=== PATIENT | female | born 1965 | race Caucasian/White ===

== ENCOUNTER 2016-09-12 12:44 | Inpatient (IN) | payer OTHER ==
[2016-09-12] MEDS ORDERED: MAGNESIUM SULF 50% (8.12 MEQ/2 ML-1 GM VIAL) ONE (12:51)
[2016-09-12] MEDS ORDERED: methylPREDNISolone NA SUCC 125 MG/2 ML VIAL ONE (12:51)
[2016-09-12] MEDS ORDERED: EPINEPHrine/PF 1 MG/1 ML (1:1,000) AMPULE ONE (12:51)
[2016-09-12] MEDS ORDERED: ALBUTEROL SO4 2.5/IPRATROPIUM 0.5 INH SOL 3 ML VIAL.NEB. NEB ONE ×3 (12:56→18:48)
[2016-09-12 13:00] VITALS: BMI 21.7
[2016-09-12] MEDS ORDERED: MAGNESIUM SULF 50% (8.12 MEQ/2 ML-1 GM VIAL) IVPB ONE (13:02)
[2016-09-12] MEDS ORDERED: methylPREDNISolone NA SUCC 40 MG/1 ML VIAL IVPB ONE (13:02)
[2016-09-12] MEDS ORDERED: ACETAMINOPHEN 1000 MG/100 ML VIAL (NON FORMULARY) IVPB ONE (13:08)
[2016-09-12] MEDS ORDERED: SODIUM CHLORIDE 1,000 ML IV STA (13:08)
[2016-09-12] MEDS ORDERED: ACETAMINOPHEN INJECTION 100 ML IVPB ONE (13:15)
[2016-09-12] MEDS ORDERED: LEVOFLOXACIN 500 MG IVPB 100 ML IVPB ONE ×2 (13:52→14:16)
[2016-09-12 13:54] LABS: BASOPHIL 0.2 % (0-2.0); EOSINOPHIL 2.3 % (0-4.5); MCH 24.8 pg (25.7-33.7); MCHC 30.3 g/dl (32.0-36.0); MEAN PLT VOLUME 8.1 fl (7.5-11.1); PLATELET COUNT 329 K/MM3 (134-434); RDW 19.2 % (11.6-15.6); WHITE BLOOD COUNT 15.2 K/mm3 (4.0-10.0)
[2016-09-12] MEDS ORDERED: NALOXONE HCL 0.4 MG/ML VIAL IVPUSH ONE (13:54)
[2016-09-12 13:56] LABS: ALBUMIN 3.4 g/dl (3.4-5.0); CALCIUM 9.2 mg/dL (8.5-10.1)
[2016-09-12 13:57] LABS: INR 1.19 (0.82-1.09); PROTHROMBIN TIME (PATIENT) 13.1 SEC (9.98-11.88)
[2016-09-12 14:01] LABS: BILIRUBIN,TOTAL 0.2 mg/dL (0.2-1.0); CREATININE 1.3 mg/dL (0.55-1.02); TOT PROT 7.9 g/dl (6.4-8.2)
[2016-09-12] MEDS ORDERED: VANCOMYCIN 1,000 MG in DEXTROSE 5%-WATER - 250 ML IVPB ONE (14:21)
[2016-09-12 14:22] LABS: URINE APPEARANCE CLEAR; URINE BILIRUBIN NEGATIVE (NEGATIVE); URINE BLOOD NEGATIVE (NEGATIVE); URINE COLOR YELLOW; URINE GLUCOSE (UA) NEGATIVE (NEGATIVE); URINE KETONE NEGATIVE (NEGATIVE); URINE LEUK ESTERASE NEGATIVE (NEGATIVE); URINE NITRITE NEGATIVE (NEGATIVE); URINE UROBILINOGEN NEGATIVE E.U./dl (0.2-1.0)
[2016-09-12] MEDS ORDERED: VANCOMYCIN 1 GRAM (PRE-DOCKED) 250 ML IVPB ONE (14:26)
[2016-09-12] MEDS ORDERED: IMIPENEM/CILASTATIN SODIUM 500 MG in SODIUM CHLORIDE 100 ML IV ONE (14:27)
[2016-09-12 14:46] LABS: URINE PROTEIN 2+ (NEGATIVE)
--- NOTE | 2016-09-12 14:51 | PDOC ---
History of Present Illness <Kassi Goodson - Last Filed: 09/12/16 14:59> - General History Source: Patient, EMS, Old Records Exam Limitations: Clinical Condition - History of Present Illness Initial Comments: 09/12/16 12:45 51-year-old female with history of crest syndrome, advanced COPD, history of heavy smoking brought in by EMS for difficulty breathing over the past several days, increased lethargy and a productive cough. Patient is unable to cooperate with detailed H&P due to her clinical condition but does report taking OxyContin for chronic back pain shortly prior to arrival. REVIEW OF SYSTEMS Unable to obtain due to patient's clinical condition EXAMINATION CONSTITUTIONAL: On arrival, patient is obtunded, arousable to sternal rub, follows simple commands. Patient is cachectic, tachypneic and dyspneic. 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 SKIN: Warm, dry, + telangioactasias to lower extremities NEURO: Obtunded but arousable, follows commands, moving all extremities symmetrically; <Lex Garcia - Last Filed: 09/12/16 17:46> - General Chief Complaint: Respiratory Distress Stated Complaint: DIFFICULTY BREATHING Time Seen by Provider: 09/12/16 13:00 Past History <Kassi Goodson - Last Filed: 09/12/16 14:59> - Past Medical History Anemia: Yes Asthma: Yes Cancer: No Cardiac Disorders: Yes (bundle tier and labeler 2015, no stents) CVA: No COPD: Yes CHF: No Dementia: No Diabetes: No GI Disorders: Yes (REFLUX) Disorders: No HTN: No Hypercholesterolemia: Yes Liver Disease: No Seizures: No Thyroid Disease: Yes (HYPO.) - Surgical History Abdominal Surgery: Yes Appendectomy: Yes Cardiac Surgery: No Cholecystectomy: No Lung Surgery: No Neurologic Surgery: Yes (LS/RODS &BONE FUSIONS) Orthopedic Surgery: Yes (multiple back sx, hand sx,b/o hip) - Immunization History Immunization Up to Date: Yes - Psycho/Social/Smoking Cessation Hx Anxiety: Yes Suicidal Ideation: No Smoking Status: No Smoking History: Former smoker Have you smoked in the past 12 months: Yes Number of Cigarettes Smoked Daily: 10 If you are a former smoker, when did you quit?: 2016 - 4 months ago Information on smoking cessation initiated: Yes 'Breaking Loose' booklet given: 09/12/16 Hx Alcohol Use: No Drug/Substance Use Hx: No Substance Use Type: None Hx Substance Use Treatment: No <Lex Garcia - Last Filed: 09/12/16 17:46> - Past Medical History Allergies/Adverse Reactions: Allergies Allergy/AdvReac Type Severity Reaction Status Date / Time Penicillins Allergy Severe Hives Verified 09/12/16 12:56 Home Medications: Ambulatory Orders Duloxetine HCl [Cymbalta -] 60 mg PO DAILY #30 capsule. 03/10/15 Albuterol 0.083% Nebulizer Cinthya [Ventolin 0.083% Nebulizer Soln -] 1 amp NEB Q4H PRN #1 amp 04/11/16 Aspirin [ASA -] 81 mg PO DAILY tab.chew 04/11/16 Budesonide/Formeterol Fumarate [SYMBICORT 80/4.5mcg -] 2 puff IH BID #1 inhaler 04/11/16 Tiotropium [place] [Spiriva] 1 puff IH DAILY #1 inh 04/27/16 Docusate Sodium [Colace -] 100 mg PO TID PRN 05/27/16 Polyethylene Glycol 3350 [Miralax 119 gm Btl -] 17 gm PO DAILY PRN 05/27/16 Ranitidine [Zantac -] 150 mg PO DAILY 05/27/16 Gabapentin [Neurontin -] 800 mg PO TID capsule 05/28/16 Mupirocin Ointment [Bactroban 2% Ointment -] 1 applic TP BID applic 05/28/16 Aclidinium [place] [Tudorza -] 1 puff IH DAILY inhaler 07/20/16 Lactobacillus Acidophilus [Bacid -] 1 each PO DAILY #30 capsule 07/20/16 Metoclopramide HCl [Reglan -] 10 mg PO ACHS tablet 07/20/16 Acetaminophen [Tylenol .Regular Strength -] 650 mg PO Q6H PRN #0 tablet Hydroxychloroquine So4 [Plaquenil -] 200 mg PO BID tablet 07/31/16 Pantoprazole Sodium [Protonix -] 40 mg PO BID tablet.ec 07/31/16 Prednisone 10 mg PO AM #20 tablet 08/27/16 *Physical Exam - Vital Signs Last Vital Signs Temp Pulse Resp BP Pulse Ox 101.7 F H 104 H 20 89/56 100 09/12/16 12:55 09/12/16 13:15 09/12/16 13:15 09/12/16 13:15 09/12/16 13:15 <Kassi Goodson - Last Filed: 09/12/16 14:59> - Vital Signs Last Vital Signs Temp Pulse Resp BP Pulse Ox 103 H 32 H 103/92 100 09/12/16 13:06 09/12/16 12:57 09/12/16 12:57 09/12/16 13:06 <Lex Garcia - Last Filed: 09/12/16 17:46> Heart Score/ECG Review - ECG Intrepretation Comment:: 09/12/16 14:51 97, normal sinus rhythm with sinus arrhythmia, axis-within normal limit, no ST- T abnormalities, prolonged QTC, abnormal EKG. <Lex Garcia - Last Filed: 09/12/16 17:46> ED Treatment Course - LABORATORY CBC & Chemistry Diagram: 09/12/16 13:15 09/12/16 13:15 - ADDITIONAL ORDERS Additional order review: Laboratory Results 09/12/16 09/12/16 09/12/16 13:50 13:15 13:15 Sodium 133 L Potassium 4.4 Chloride 104 Carbon Dioxide 19 L D Anion Gap 10 BUN 37 H D Creatinine 1.3 H D Creat Clearance w eGFR 43.01 Random Glucose 127 H Lactic Acid 0.690 Calcium 9.2 Total Bilirubin 0.2 AST 95 H D ALT 54 D Alkaline Phosphatase 58 D Total Protein 7.9 D Albumin 3.4 D Urine Color Yellow Urine Appearance Clear Urine pH 5.0 Ur Specific [place] 1.023 Urine Protein 2+ H Urine Glucose (UA) Negative Urine Ketones Negative Urine Blood Negative Urine Nitrite Negative Urine Bilirubin Negative Urine Urobilinogen Negative Ur Leukocyte Esterase Negative 09/12/16 13:15 RBC 4.27 MCV 82.0 MCHC 30.3 L RDW 19.2 H MPV 8.1 D Neutrophils % 88.0 H Lymphocytes % 4.9 L D Monocytes % 4.6 Eosinophils % 2.3 D Basophils % 0.2 - Medications Given in the ED: ED Medications Discontinued Medications Generic Name Dose Route Start Last Admin Trade Name Shalom PRN Reason Stop Dose Admin Acetaminophen 1,000 mg 09/12/16 13:08 09/12/16 13:31 Ofirmev Injection - IVPB 09/12/16 13:09 1,000 mg ONCE ONE Administration Albuterol/Ipratropium 5 amp 09/12/16 13:16 09/12/16 13:32 Duoneb - NEB 09/12/16 13:17 5 amp ONCE ONE Administration Sodium Chloride 1,000 mls @ 1,000 mls/hr 09/12/16 13:08 09/12/16 13:31 Normal Saline - IV 09/12/16 14:07 1,000 mls/hr ASDIR STA Administration Levofloxacin 100 mls @ 100 mls/hr 09/12/16 13:52 09/12/16 14:25 Levaquin 500 Mg Premixed Ivpb - IVPB 09/12/16 14:51 100 mls/hr ONCE ONE Administration Magnesium Sulfate 2 gm 09/12/16 13:02 09/12/16 13:00 Magnesium Sulfate IVPB 09/12/16 13:03 2 gm ONCE ONE Administration Methylprednisolone Sodium Succinate 60 mg 09/12/16 13:02 09/12/16 13:12 Solu-Medrol - IVPB 09/12/16 13:03 60 mg ONCE ONE Administration Naloxone HCl 0.4 mg 09/12/16 13:54 09/12/16 14:25 Narcan - IVPUSH 09/12/16 13:55 0.4 mg ONCE ONE Administration <Kassi Goodson - Last Filed: 09/12/16 14:59> - LABORATORY CBC & Chemistry Diagram: 09/12/16 13:15 09/12/16 13:15 - ADDITIONAL ORDERS Additional order review: Laboratory Results 09/12/16 09/12/16 13:15 13:15 Sodium 133 L Potassium 4.4 Chloride 104 Carbon Dioxide 19 L D Anion Gap 10 BUN 37 H D Creatinine 1.3 H D Creat Clearance w eGFR 43.01 Random Glucose 127 H Lactic Acid 0.690 Calcium 9.2 Total Bilirubin 0.2 AST 95 H D ALT 54 D Alkaline Phosphatase 58 D Total Protein 7.9 D Albumin 3.4 D 09/12/16 13:15 RBC 4.27 MCV 82.0 MCHC 30.3 L RDW 19.2 H MPV 8.1 D Neutrophils % 88.0 H Lymphocytes % 4.9 L D Monocytes % 4.6 Eosinophils % 2.3 D Basophils % 0.2 - RADIOLOGY Radiology Studies Ordered: Category Date Time Status CHEST X-RAY PORTABLE* [RAD] Stat Radiology 09/12/16 13:00 Completed - Medications Given in the ED: ED Medications Discontinued Medications Generic Name Dose Route Start Last Admin Trade Name Freq PRN Reason Stop Dose Admin Acetaminophen 1,000 mg 09/12/16 13:08 09/12/16 13:31 Ofirmev Injection - IVPB 09/12/16 13:09 1,000 mg ONCE ONE Administration Albuterol/Ipratropium 5 amp 09/12/16 13:16 09/12/16 13:32 Duoneb - NEB 09/12/16 13:17 5 amp ONCE ONE Administration Sodium Chloride 1,000 mls @ 1,000 mls/hr 09/12/16 13:08 09/12/16 13:31 Normal Saline - IV 09/12/16 14:07 1,000 mls/hr ASDIR STA Administration Magnesium Sulfate 2 gm 09/12/16 13:02 09/12/16 13:00 Magnesium Sulfate IVPB 09/12/16 13:03 2 gm ONCE ONE Administration Methylprednisolone Sodium Succinate 60 mg 09/12/16 13:02 09/12/16 13:12 Solu-Medrol - IVPB 09/12/16 13:03 60 mg ONCE ONE Administration Naloxone HCl 0.4 mg 09/12/16 13:54 09/12/16 14:25 Narcan - IVPUSH 09/12/16 13:55 0.4 mg ONCE ONE Administration <Lex Garcia - Last Filed: 09/12/16 17:46> Medical Decision Making - Medical Decision Making 09/12/16 14:[address] Yee from infectious disease. She is in agreement with plan of care. <Kassi Goodson - Last Filed: 09/12/16 14:59> - Critical Care Time Total Critical Care Time (minutes): 75 Critical Care Statement: The care of this patient involved high complexity decision making to prevent further life threatening deterioration of the patient 's condition and/or to evalute & treat vital organ system(s) failure or risk of failure. - Medical Decision Making 09/12/16 12:57 Patient is an ill-appearing 51-year-old female with history of crest syndrome, pulmonary fibrosis, heavy smoking who presents with altered mental status, fever and difficulty breathing. On initial evaluation, patient noted to be obtunded, dyspneic and tachypneic and febrile. Patient was immediately placed on BiPAP for respiratory support and end-tidal CO2 was obtained-noted to be 32. Oxygen saturation on FiO2 of 50% is Between 89 and 94%. Differential diagnoses includes acute COPD exacerbation versus pneumonia versus CHF exacerbation. We'll obtain CBC/CMP/cardiac profile/chest x-ray/EKG/UA/urine culture. We'll administer continuous nebulizer therapy, we'll administer Solu- Medrol and magnesium sulfate IV. Will continue BiPAP. We'll consider IM epinephrine if respiratory status worsens. 09/12/16 13:34 Patient remains obtunded and is refusing to maintain the BiPAP mask on. I will administer Narcan to reverse possible effects of opioid pain medication. Will encourage resumption of BiPAP. CBC shows leukocytosis with predominance of neutrophils. CMP reveals elevated BUN and creatinine. Chest x-ray reveals increased interstitial markings. Will continue with Combivent therapy. Will administer broad-spectrum antibiotic coverage for hospital-acquired pneumonia. Will screen for the ICU. 09/12/16 13:[address] Youngblood of critical care. He agrees with the plan of care. Patient will be admitted to the ICU. After administration of 0.4 mg of Narcan, patient became alert, awake and responsive. Sputum culture will be obtained. Patient has also received a bolus of normal saline of 1000 mL with improvement and blood pressure from 93/52 to 112/72. 09/12/16 15:3 patient seen and evaluated by Dr. Yee of infectious disease. She agrees with the plan of care. Patient remains hemodynamically stable at this time. End- tidal CO2 is noted to be 25. Oxygen saturation on FiO2 of 40% is noted to be 99% . Awaiting transfer to the ICU. <Lex Garcia - Last Filed: 09/12/16 17:46> *DC/Admit/Observation/Transfer - Attestations Scribe Attestion: 09/12/16 14:59 Documentation prepared by Kassi Goodson, acting as medical office worker for Lex Garcia MD. <Kassi Goodson - Last Filed: 09/12/16 14:59> - Discharge Dispostion Admit: Yes <Lex Garcia - Last Filed: 09/12/16 17:46> Diagnosis at time of Disposition: COPD exacerbation Pneumonia due to infectious organism Qualifiers: Laterality: bilateral Lung location: unspecified part of lung Qualified Code(s) : J18.9 - Pneumonia, unspecified organism
[2016-09-12 14:58] LABS: URINE RBC 9 /hpf (0-3); URINE WBC 1 /hpf (3-5)
[2016-09-12 14:59] LABS: URINE MARIJUANA THC NEGATIVE ng/ml (CUTOFF=50)
--- NOTE | 2016-09-12 15:21 | CONSULT ---
Consult Consult Specialty:: ICU Referred by:: ED Reason for Consultation:: lethargic/PNA/possible aspiration/possibleopiate overdose - History of Present Illness Chief Complaint: weakness/lethargy History of Present Illness: 51-year-old female with history of crest syndrome, advanced COPD, history of heavy smoking brought in by EMS for difficulty breathing over the past several days, increased lethargy and a productive cough. She has a history of opioid dependence and multiple aspiration pneumonias. upon arrival to the ED patient was given narcan and she woke up. Patient was still lethargic but able to answer some questions during the interview process. She states this happens to her whenever she gets a PNA. she states she has been having purulent sputum with cough. She states she has been having fevers and chills. patient does not remember losing consciousness. She denies all other symptoms she has no other complaints. She takes ocycontin 80mg TID and MS contin 30mg BID. Denies overusing states takes only as prescribed. - History Source History Provided By: Patient, Medical Record Limitations to Obtaining History: Intoxication - Past Medical History PENSION CONSULTANT: Yes: Peripheral Neuropathy Cardio/Vascular: Yes: Other (Raynaud's w/ multiple upper extremity digit amputations. 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), GERD (with long segment Bonner's esophagus and patent Schatzki ring), Peptic Ulcer Disease (antral ulcer ), Other (Bonner's esophagus, GERD, Schatzki ring, perforation of small bowel diverticulum, antral ulcer, scleroderma causing esophageal dysmotility and gastroparesis) Renal/: Yes: Renal Failure Infectious Disease: Yes: MRSA (bursitis) Psych: Yes: Addictions (marijuana,tobacco and prescription narcotics) Musculoskeletal: Yes: Chronic low back pain, Other (has spinal stimulator) Rheumatology: Yes: Vasculitis, Other (Scleroderma, Raynauds and CREST syndrome) Endocrine: Yes: Hypothyroidism, Other (Malnutrition, osteoporosis) Dermatology: Yes: Cellulitis - Past Surgical History Past Surgical History: Yes: Appendectomy, Colonoscopy, Upper Endoscopy - Alcohol/Substance Use Hx Alcohol Use: No History of Substance Use: reports: Marijuana (quit 1 month ago), Prescription - Smoking History Smoking history: Former smoker Have you smoked in the past 12 months: Yes Aproximately how many cigarettes per day: 10 If you are a former smoker, when did you quit?: 2016 - 4 months ago - Social History Usual Living Arrangement: With Parent ADL: Independent Occupation: disabled History of Recent Travel: No Home Medications - Allergies Allergies/Adverse Reactions: Allergies Allergy/AdvReac Type Severity Reaction Status Date / Time Penicillins Allergy Severe Hives Verified 09/12/16 12:56 - Home Medications Home Medications: Ambulatory Orders Duloxetine HCl [Cymbalta -] 60 mg PO DAILY #30 capsule. 03/10/15 Lactobacillus Acidophilus [Bacid -] 1 each PO DAILY #30 capsule 01/03/16 Albuterol 0.083% Nebulizer Cinthya [Ventolin 0.083% Nebulizer Soln -] 1 amp NEB Q4H PRN #1 amp 04/11/16 Aspirin [ASA -] 81 mg PO DAILY tab.chew 04/11/16 Budesonide/Formeterol Fumarate [SYMBICORT 80/4.5mcg -] 2 puff IH BID #1 inhaler 04/11/16 Tiotropium [place] [Spiriva] 1 puff IH DAILY #1 inh 04/27/16 Docusate Sodium [Colace -] 100 mg PO TID PRN 05/27/16 Polyethylene Glycol 3350 [Miralax 119 gm Btl -] 17 gm PO DAILY PRN 05/27/16 Ranitidine [Zantac -] 150 mg PO DAILY 05/27/16 Gabapentin [Neurontin -] 800 mg PO TID capsule 05/28/16 Mupirocin Ointment [Bactroban 2% Ointment -] 1 applic TP BID applic 05/28/16 Aclidinium [place] [Tudorza -] 1 puff IH DAILY inhaler 07/20/16 Lactobacillus Acidophilus [Bacid -] 1 each PO DAILY #30 capsule 07/20/16 Metoclopramide HCl [Reglan -] 10 mg PO ACHS tablet 07/20/16 Morphine *Sr* [Ms Contin -] 15 mg PO BID@0800,2000 #0 tablet.sa MDD 2 07/20/16 Oxycodone Sr [Oxycontin] 40 mg PO TID tab.er.12h MDD 3 tab 07/20/16 Acetaminophen [Tylenol .Regular Strength -] 650 mg PO Q6H PRN #0 tablet Hydroxychloroquine So4 [Plaquenil -] 200 mg PO BID tablet 07/31/16 Pantoprazole Sodium [Protonix -] 40 mg PO BID tablet.ec 07/31/16 Prednisone 10 mg PO AM #20 tablet 08/27/16 Sulfamethoxazole/Trimethoprim [Bactrim Ds -] 1 tab PO BID #14 tablet 08/27/16 Family Disease History - Family Disease History Family Disease History: Diabetes: Father (HCV), Heart Disease: Father, Mother, Other: Father, Brother (HIV) Review of Systems - Review of Systems Constitutional: reports: Chills, Fever Eyes: reports: No Symptoms HENT: reports: No Symptoms Neck: reports: No Symptoms Cardiovascular: reports: No Symptoms Respiratory: reports: SOB on Exertion Gastrointestinal: reports: No Symptoms, Dysphagia Genitourinary: reports: No Symptoms Musculoskeletal: reports: Joint Pain, Joint Swelling, Muscle Pain Physical Exam Vital Signs: Vital Signs Temperature 101.7 F H 09/12/16 12:55 Pulse Rate 90 09/12/16 14:00 Respiratory Rate 20 09/12/16 14:00 Blood Pressure 126/78 09/12/16 14:00 O2 Sat by Pulse Oximetry (%) 100 09/12/16 14:00 Constitutional: Yes: Cachectic, Poor Hygeine, Thin, Other (tired appearing lethargic poor oral hygiene) HENT: Yes: Atraumatic Neck: Yes: Trachea Midline Cardiovascular: Yes: Regular Rate and Rhythm Respiratory: Yes: Rales, Rhonchi Gastrointestinal: Yes: Normal Bowel Sounds, Soft Extremities: Yes: Other (cool cyanotic fingers multiple amputated fingers) Neurological: Yes: Lethargy Labs: CBC, BMP 09/12/16 13:15 09/12/16 13:15 Imaging - Results Chest X-ray: Report Reviewed, Image Reviewed Assessment/Plan 51-year-old female with history of crest syndrome, advanced COPD, history of heavy smoking brought in by EMS for difficulty breathing over the past several days, increased lethargy and a productive cough. Likely Acute on Chronic Hypercapneic Respiratory Failure Likely Recurrent Aspiration Pneumonia Opiate Dependent - ?Overdose Altered Mental Status Acute COPD Exacerbation Acute Kidney Injury Scleroderma/CREST Syndrome COPD:Acute on chronic hypercapneic respiratory failure Admit to ICU Hold home meds BiPAP Duonebs standing albuterol PRN solumedrol 40mg IV Q8h x48hrs Get VBG Sepsis secondary to recurrent aspiration PNA meets SIRS criteria with likely pulmonary source given purulent sputum. patient also has esophageal dysmotility Elevated WBC count HR >90 and febrile with suspected pulmonary source UA negative Got vanco imipenem and levaquin in ED ID consult appreciated continue vanco imipenem repeat CBC IVF PRASHANT: likely secondary to prerenal cause given sepsis IVF recheck Cr avoid nephrotoxic drugs renally dose all meds Opioid dependence Possible overdose Hold opiates Narcan PRN patient needs counselling prior to discharge Scleroderma/CREST outpt follow up PPx: HSQ SCDs No GI PPx indicated OOB TC FEN: NS @ 50ml/hr Hyponatremia NPO for now CCT 60min
--- NOTE | 2016-09-12 15:25 | PN ---
Teaching Attending Note Name of Resident: Dash Rojas ATTENDING PHYSICIAN STATEMENT I saw and evaluated the patient. I reviewed the resident's note and discussed the case with the resident. I agree with the resident's findings and plan as documented. SUBJECTIVE: Pt seen and examined in the ER. Briefly, 51yo female with h/o COPD, scleroderma/ CREST syndrome, hypothyroidism, hyperlipidemia, recurrent pneumonia attributed to aspiration, opiate dependency who presents with altered mental status and shortness of breath. Pt lethargic, unable to provide reliable history at this time but does report subjective fevers this AM and a purulent cough. No sick contacts or recent travel. Noted to be obtunded in the ER with some improvement in mental status. She is maintained at home on oxycontin 80mg TID and MS contin 30mg BID. She states she does not take extra doses. OBJECTIVE: Last Vital Signs Temp Pulse Resp BP Pulse Ox 101.7 F H 90 20 126/78 100 09/12/16 12:55 09/12/16 14:00 09/12/16 14:00 09/12/16 14:00 09/12/16 14:00 Intake & Output 09/09/16 09/10/16 09/11/16 09/12/16 23:59 23:59 23:59 23:59 Intake Total 1000 Output Total 400 Balance 600 Weight 115 lb Gen: lethargic on BiPAP HEENT: poor dentition Heart: RRR Lung: distant breath sounds, scattered rhonchi Abd: soft, nontender Ext: no edema, amputated fingers CBC, BMP 09/12/16 13:15 09/12/16 13:15 CXR: bilateral interstitial changes ASSESSMENT AND PLAN: Likely Acute on Chronic Hypercapneic Respiratory Failure Likely Recurrent Aspiration Pneumonia Opiate Dependent - ?Overdose Altered Mental Status Acute COPD Exacerbation Acute Kidney Injury Scleroderma/CREST Syndrome - IV antibiotics to cover aspiration and health care acquired organisms - f/u cultures - IV medrol 40mg q8h x 48 hrs and then reassess need - inhaled bronchodilators standing and PRN - BiPAP to assist in work of breathing and hypercapnea - obtain pH - hold narcotics - aspiration precautions - IVF - monitor urine output, creatinine - NPO until mental status improves - DVT prophylaxis - ICU monitoring for now Thank you for this consult Hai Youngblood MD
--- NOTE | 2016-09-12 15:37 | PN ---
Progress Note (short form) - Note Progress Note: ID consult dictated imlp/reccd- this is the 14th hospital admission for 2016 for this 51 year old female with scleroderma/crest/raynaud's disease, on oxycontin/mscontin for pain management history of GERD, histroy of recurrent pneumonia admitted from home with a history of several days of fever and cough, +vomiting +constipation sister reports intermittent lethargy at home as well she was obtunded in the ED and her mental status improved with bipap and narcan recent admission 08/24 to 08/27 for pneumonia treated with rocephin/zith and d/ rahul on bactrim 08/27 for 7 days, also steroid taper now off fever in ED given vancomycin/levaquin and imipenem history of ecoli ESBL in the sputum +purulent sputum +influenza vaccine respiratory failure pneumonia [place] n[place] scleroderma/crest pen allergy ?aspiration f/u cultures legionella urinary antigen influenza screen vancomycin/imipenem pending cultures contact isolation resistant organisms icu monitoring
[2016-09-12] MEDS ORDERED: ALBUTEROL SO4 0.083% IH SOL 2.5 MG/3 ML VIAL.NEB. NEB PRN ×2 (15:57→16:28)
[2016-09-12] MEDS ORDERED: ACETAMINOPHEN 325 MG TABLET (FP) PO PRN (16:28)
[2016-09-12] MEDS ORDERED: DOCUSATE SODIUM 100 MG CAPSULE (FP) PO PRN (16:28)
[2016-09-12] MEDS ORDERED: POLYETHYLENE GLYCOL 3350 119 GM BTL PO PRN (16:28)
[2016-09-12] MEDS ORDERED: SODIUM CHLORIDE 1,000 ML IV SCH (16:30)
[2016-09-12] MEDS: METOCLOPRAMIDE HCL 10 MG TABLET (FP) PO SCH (16:50)
[2016-09-12] MEDS: LIDOCAINE 5% TOPICAL PATCH TP SCH (16:51)
--- NOTE | 2016-09-12 17:28 | CONS ---
INFECTIOUS DISEASE CONSULTATION DATE OF CONSULTATION: 09/12/2016 Patient was seen in the emergency room. This is the 4th hospital admission in 2016 for this 51-year-old woman with: 1. Scleroderma (CREST syndrome) 2. Raynaud's disease 3. On OxyContin/MS Contin for pain management 4. History of GERD 5. History of recurrent pneumonia, was admitted from home with a history of several days of fever and cough. 6. She has also had intermittent vomiting and constipation. There has been no history of any travel or sick contacts. Patient reports intermittent lethargy at home as well. Yesterday, apparently all day she was very, very lethargic. She was quite alert last night and again today became extremely lethargic. She has had intermittent fever at home. She was recently in the hospital from the to the for pneumonia, treated with Rocephin and Zithromax, discharged on Bactrim on the for 7 days, also was discharged on a steroid taper, which she is now off. She was quite lethargic in the emergency room when she was evaluated by the emergency room physician. She was placed on BiPAP, and she was given a dose of Narcan with improvement. I am asked to see her for further antibiotic management. PAST MEDICAL HISTORY: Her past medical history is notable for: 1. Chronic interstitial lung disease 2. History of scleroderma (CREST syndrome) 3. Raynaud's 4. COPD 5. Anemia 6. Asthma 7. GERD 8. Hypothyroidism 9. She has ESBL. 10. Compensation of her sputum and urine in the past. 11. She has a history of recurrent pneumonia. She has a history as well of: 12. Bonner's esophagus 13 Schatzki's ring 14. Gastroparesis 15. Peptic ulcer disease 16. MRSA bursitis of her elbow 17. Chronic low back pain. She has had a cardiac catheterization in the past and was found to have normal coronaries. SURGICAL HISTORY: 1. Appendectomy 2. She has had multiple upper extremity finger partial amputations on both her hands. SOCIAL HISTORY: There is no history of any alcohol use. She recently stopped smoking marijuana. She is a former smoker. She quit several months ago as well. She lives at home with her family. She is not working. ALLERGIES: She is allergic to PENICILLAIN but tolerates cephalosporins. MEDICATIONS AT HOME: 1. Cymbalta 2. Bacid 3. Nebulizer 4. Aspirin 5. Symbicort 6. Spiriva 7. Colace 8. MiraLAX 9. Zantac 10. Neurontin 11. Mupirocin ointment 12. Tudorza 13. Reglan 14 MS Hussein. She apparently takes 30 twice a day 15. She takes OxyContin 80 three times a day. 16. On the , she finished Bactrim. 17. She finished a recent prednisone taper. 18. She also takes Plaquenil 200 mg b.i.d. 19. Protonix 40 b.i.d. FAMILY HISTORY: Family history is notable for diabetes, heart disease, and she has a brother who has HIV. REVIEW OF SYSTEMS: Reports constipation, intermittent vomiting and intermittent fevers with cough productive of purulent sputum. Her fever is 101.7. She is quite alert now, no BiPAP. She is able to speak with me. PHYSICAL EXAM: Vital signs: Her pulse is 90. Blood pressure is 126/78. Respiratory rate is 20. She is batting a 100% on BiPAP 50%. HEENT EXAM: She is normocephalic. Her neck is supple. I cannot examine her mouth as she is on BiPAP. Lungs: Her lungs have distant heart sounds. She has some scattered rhonchi. There are no wheezes. Abdomen: Her abdomen is firm. It is nontender. It is slightly distended. Her extremities are without edema, and she has multiple amputated fingers. Labs are notable for a white count of 15.2, hemoglobin 10.6, platelets of 329, BUN and creatinine of 37 and 1.3. Chest x-ray showing bilateral interstitial changes that appear worse than on her last admission. SUMMARY: In summary, this is a 51-year-old woman with respiratory failure, probable aspiration pneumonia, opiate-dependant, scleroderma (CREST syndrome) on Plaquenil and Raynaud's. History of ESBL organisms in the past. She received vancomycin, Levaquin and imipenem in the emergency room. RECOMMENDATIONS: Suggest continuing vancomycin and imipenem, adjusted for her renal insufficiency. Sputum culture and blood cultures have been ordered. Will obtain an influenza antigen. She did get the flu shot, but for completeness as well as pneumococcal and legionella urinary antigen. Further recommendations to follow based on her clinical course. TLAON EWING M.D. /[id number]
[2016-09-12] MEDS ORDERED: methylPREDNISolone NA SUCC 40 MG/1 ML VIAL ONE (18:44)
[2016-09-12] MEDS: ALBUTEROL SO4 2.5/IPRATROPIUM 0.5 INH SOL 3 ML VIAL.NEB. NEB SCH (18:51)
[2016-09-12] MEDS: methylPREDNISolone NA SUCC 40 MG/1 ML VIAL IVPB SCH (18:52)
--- NOTE | 2016-09-12 21:08 | HP ---
Admitting History and Physical - Primary Care Physician PCP: Eva Gonzalez S - Admission Chief Complaint: cough lethargy History of Present Illness: Pt seen and examined in the ER. 51yo female with h/o COPD, scleroderma/CREST syndrome, hypothyroidism, hyperlipidemia, recurrent pneumonia attributed to aspiration, opiate dependency who presents with altered mental status and shortness of breath. Pt and her girlfriend Maki at bedside report fevers this AM and a purulent cough. Pt started to cough yesterday at home but said she had some nausea and vomiting at home 3-4 days ago and thinks she had a stomach virus. No sick contacts or recent travel. Noted to be obtunded in the ER with some improvement in mental status. She is maintained at home on oxycontin 80mg TID and MS contin 30mg BID. She states she does not take extra doses. Her mental status improved with narcan in ER. Maki reported pt had some difficulty in talking at home earlier and is wondering if she had a "small CVA". I d/w pt and Maki that as advised many times in the past would cut down to taper to off er opiates; pt was supposed to see neurology and pain mngt outpt to be switched to alternative treatment (from opiates) but did not go yet; strongly advised to do so. I d/w pt and Maki again risks and possible consequences of opiate tx (like respiratory depression, constipation, falls, tolerance, dependence, etc); they are aware and are working on tapering them to off and DC them. 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 Normal coronaries on cardiac cath and EF 65% with mild AI, trace MR and TR on echo @ [facility] [place] 03/31) Pulmonary: Yes: Asthma, COPD, Pneumonia, Other (lung mass of undetermined etiology) Gastrointestinal: Yes: Constipation, Diverticulitis, Diverticulosis (small bowel diverticular perforation, scleroderma affecting the esophagus, Bonner's esophagus, Schatzki ring,GAVE syndrome, antral ulcer, gastroparesis related to scleroderma), GERD (with long segment Bonner's esophagus and patent Schatzki ring), Peptic Ulcer Disease (antral ulcer ), Other (Bonner's esophagus, GERD, Schatzki ring, perforation of small bowel diverticulum, antral ulcer, scleroderma causing esophageal dysmotility and gastroparesis) Renal/: Yes: Renal Failure Heme/Onc: Yes: Anemia Infectious Disease: Yes: MRSA (bursitis) Psych: Yes: Addictions (marijuana,tobacco and prescription narcotics) Musculoskeletal: Yes: Chronic low back pain, Other (has spinal stimulator) Rheumatology: Yes: Vasculitis, Other (Scleroderma, Raynauds and CREST syndrome) Endocrine: Yes: Hypothyroidism, Other (Malnutrition, osteoporosis) Dermatology: Yes: Cellulitis - Past Surgical History Past Surgical History: Yes: Appendectomy, Colonoscopy, Upper Endoscopy - Smoking History Smoking history: Former smoker Have you smoked in the past 12 months: Yes Aproximately how many cigarettes per day: 10 If you are a former smoker, when did you quit?: 2016 - 4 months ago - Alcohol/Substance Use Hx Alcohol Use: No History of Substance Use: reports: Marijuana (quit 1 month ago), Prescription - Social History Usual Living Arrangement: Yes: With Parent ADL: Independent Occupation: disabled History of Recent Travel: No Home Medications - Allergies Allergies/Adverse Reactions: Allergies Allergy/AdvReac Type Severity Reaction Status Date / Time Penicillins Allergy Severe Hives Verified 09/12/16 12:56 - Home Medications Home Medications: Ambulatory Orders Duloxetine HCl [Cymbalta -] 60 mg PO DAILY #30 capsule. 03/10/15 Albuterol 0.083% Nebulizer Cinthya [Ventolin 0.083% Nebulizer Soln -] 1 amp NEB Q4H PRN #1 amp 04/11/16 Aspirin [ASA -] 81 mg PO DAILY tab.chew 04/11/16 Budesonide/Formeterol Fumarate [SYMBICORT 80/4.5mcg -] 2 puff IH BID #1 inhaler 04/11/16 Tiotropium [place] [Spiriva] 1 puff IH DAILY #1 inh 04/27/16 Docusate Sodium [Colace -] 100 mg PO TID PRN 05/27/16 Polyethylene Glycol 3350 [Miralax 119 gm Btl -] 17 gm PO DAILY PRN 05/27/16 Ranitidine [Zantac -] 150 mg PO DAILY 05/27/16 Gabapentin [Neurontin -] 800 mg PO TID capsule 05/28/16 Mupirocin Ointment [Bactroban 2% Ointment -] 1 applic TP BID applic 05/28/16 Aclidinium [place] [Tudorza -] 1 puff IH DAILY inhaler 07/20/16 Lactobacillus Acidophilus [Bacid -] 1 each PO DAILY #30 capsule 07/20/16 Metoclopramide HCl [Reglan -] 10 mg PO ACHS tablet 07/20/16 Acetaminophen [Tylenol .Regular Strength -] 650 mg PO Q6H PRN #0 tablet Hydroxychloroquine So4 [Plaquenil -] 200 mg PO BID tablet 07/31/16 Pantoprazole Sodium [Protonix -] 40 mg PO BID tablet.ec 07/31/16 Prednisone 10 mg PO AM #20 tablet 08/27/16 Family Disease History - Family Disease History Family Disease History: Diabetes: Father (HCV), Heart Disease: Father, Mother, Other: Father, Brother (HIV) Review of Systems - Review of Systems Constitutional: reports: Fever, Lethargy. denies: Chills Eyes: denies: Blind Spots, Double Vision HENT: denies: Difficult Swallowing, Ear Pain Neck: denies: Pain on Movement, Stiffness, Swollen Glands, Tenderness Cardiovascular: denies: Chest Pain, Shortness of Breath Respiratory: reports: Cough. denies: Hemoptysis, SOB, Wheezing Gastrointestinal: reports: Bloating, Constipation, Vomiting. denies: Abdominal Pain, Diarrhea Genitourinary: denies: Burning, Dysuria, Flank Pain Musculoskeletal: reports: Back Pain (chronic) Neurological: reports: Change in Speech, Unsteady Gait. denies: Change in LOC, Confusion Hematology/Lymphatic: denies: Easily Bruised, Excessive Bleeding Physical Examination Vital Signs: Vital Signs Temperature 97.8 F 09/12/16 16:42 Pulse Rate 87 09/12/16 18:16 Respiratory Rate 14 09/12/16 18:16 Blood Pressure 97/68 09/12/16 18:16 O2 Sat by Pulse Oximetry (%) 98 09/12/16 19:49 Constitutional: Yes: Moderate Distress Eyes: Yes: Conjunctiva Clear HENT: Yes: Atraumatic Neck: Yes: Supple Cardiovascular: Yes: Regular Rate and Rhythm Respiratory: Yes: Rales, Rhonchi (bilateral I/E) Gastrointestinal: Yes: Soft, Distention. No: Tenderness Renal/: No: CVA Tenderness - Left, CVA Tenderness - Right Musculoskeletal: No: Joint Stiffness, Joint Swelling Extremities: No: Cold, Cool Edema: No Peripheral Pulses WNL: Yes Integumentary: No: Pressure Ulcer, Rash, Venous Stasis Changes Neurological: Yes: WNL, Alert, Oriented ...Motor Strength: WNL Psychiatric: Yes: WNL, Alert, Oriented. No: Agitated Imaging - Results Chest X-ray: Report Reviewed Other: Report Reviewed Assessment/Plan 51yo female with h/o COPD, scleroderma/CREST syndrome, hypothyroidism, hyperlipidemia, recurrent pneumonia attributed to aspiration, opiate dependency who presents with altered mental status and shortness of breath. Pt lethargic at arrival but woke up with narcan admit to ICU BIPAP pulmonary and ID eval iv steroids; iv antibiotics; neuro and pain mnt; taper opiates to off DVT gastric falls and aspiration PFX prognosis guarded d/w pt and staff, d/w Maki; also to address advanced directives, HCP T time 75 min
[2016-09-12] MEDS ORDERED: MUPIROCIN 2% TOPICAL OINTMENT 22 GM TUBE TP SCH (22:00)
[2016-09-12] MEDS ORDERED: HEPARIN NA (PORCINE) 5,000 UNITS/ML 1ML VIAL SQ SCH (22:00)
[2016-09-12] MEDS ORDERED: CHLORHEXIDINE GLUCONATE 4% CLEANSER FOR DECOLONIZATION TP SCH (22:00)
[2016-09-13] MEDS: GABAPENTIN 400 MG CAPSULE (FP) PO SCH ×4 (00:11→21:22)
[2016-09-13] MEDS: MUPIROCIN 2% TOPICAL OINTMENT FOR DECOLONIZATION NS SCH ×3 (00:12→21:23)
[2016-09-13] MEDS: PANTOPRAZOLE 40 MG TABLET (FP) PO SCH ×3 (00:12→21:22)
[2016-09-13] MEDS: HEPARIN NA (PORCINE) 5,000 UNITS/ML 1ML VIAL SQ SCH ×3 (00:12→21:22)
[2016-09-13] MEDS: METOCLOPRAMIDE HCL 10 MG TABLET (FP) PO SCH ×5 (00:30→21:23)
[2016-09-13] MEDS: BUDESONIDE/FORMETEROL FUMARATE 80/4.5 mcg INHALER IH SCH ×3 (00:31→21:24)
[2016-09-13] MEDS: HYDROXYCHLOROQUINE SO4 200 MG TABLET (FP) PO SCH ×3 (00:31→21:23)
[2016-09-13] MEDS: IMIPENEM/CILASTATIN SODIUM 500 MG in SODIUM CHLORIDE 100 ML IVPB SCH ×3 (01:50→18:04)
[2016-09-13] MEDS: methylPREDNISolone NA SUCC 40 MG/1 ML VIAL IVPB SCH ×3 (01:50→18:04)
[2016-09-13] MEDS: ALBUTEROL SO4 2.5/IPRATROPIUM 0.5 INH SOL 3 ML VIAL.NEB. NEB SCH ×4 (02:19→23:04)
[2016-09-13 06:06] LABS: ARTERIAL BLD GAS O2 SATURATION 92.4 % (90-98.9); ARTERIAL BLOOD GAS BASE EXCESS -6.2 meq/l (-2-2); ARTERIAL BLOOD GAS HCO3 19.8 meq/L (22-26); ARTERIAL BLOOD GAS PO2 73.8 mmHg (80-100)
[2016-09-13 06:07] LABS: ALLENS TEST POSITIVE; ART PUNCT SITE RIGHT RADIAL; LPM/O2% 40%; PT. ON O2? YES; TYPE OF O2 BI-PAP
[2016-09-13 06:08] LABS: ARTERIAL BLOOD GAS pH 7.27 (7.35-7.45); VENT RATE 14; VT/PRESS 14/7
[2016-09-13 06:29] LABS: MCH 24.9 pg (25.7-33.7); MCHC 30.9 g/dl (32.0-36.0); MEAN CELL VOLUME 80.6 fl (80-96); MEAN PLT VOLUME 7.7 fl (7.5-11.1); PLATELET COUNT 311 K/MM3 (134-434); RDW 19.3 % (11.6-15.6); WHITE BLOOD COUNT 11.6 K/mm3 (4.0-10.0)
[2016-09-13 06:43] LABS: INR 1.33 (0.82-1.09); PROTHROMBIN TIME (PATIENT) 14.7 SEC (9.98-11.88)
[2016-09-13 06:46] LABS: ACTIVATED PTT 31.7 SECONDS (26.9-34.4)
[2016-09-13 06:50] LABS: ALBUMIN 2.4 g/dl (3.4-5.0); ALK PHOS 44 U/L (45-117); ANION GAP 8 (8-16); BILIRUBIN,TOTAL 0.2 mg/dL (0.2-1.0); CALCIUM 8.1 mg/dL (8.5-10.1); CO2 22 mmol/L (21-32); CREATININE 0.7 mg/dL (0.55-1.02); GLUCOSE,RANDOM 123 mg/dL (74-106); MAGNESIUM 1.9 mg/dL (1.8-2.4); PHOSPHOROUS 2.8 mg/dL (2.5-4.9); SGOT/AST 47 U/L (15-37); SGPT/ALT 37 U/L (12-78); TOT PROT 5.9 g/dl (6.4-8.2)
--- NOTE | 2016-09-13 07:28 | PN ---
Progress Note, Physician Chief Complaint: ID Patient well known to me from repeated admissions for fever and recurrent respiratory tract infections Again here with fever and respiratory failure monitered in the ICU and currently on BIPAP Given Vancomycin and Imipenem - Current Medication List Current Medications: Active Medications Acetaminophen (Tylenol -) 650 mg PO Q6H PRN PRN Reason: FEVER OR PAIN Aclidinium [place] (Tudorza -) [address] [facility] Albuterol Sulfate (Ventolin 0.083% Nebulizer Soln -) 1 amp NEB Q4H PRN PRN Reason: SHORT OF BREATH/WHEEZING Albuterol/Ipratropium (Duoneb -) [address] [facility] Last Admin: 09/13/16 06:50 Dose: 1 amp Aspirin (Asa -) [address] [facility] Budesonide/Formoterol Fumarate (Symbicort 80/4.5mcg -) [address] [facility] Last Admin: 09/13/16 00:31 Dose: 2 puff Chlorhexidine Gluconate (Hibiclens For Decolonization -) [address] [facility] Last Admin: 09/13/16 00:12 Dose: Not Given Docusate Sodium (Colace -) 100 mg PO TID PRN PRN Reason: CONSTIPATION Duloxetine HCl (Cymbalta -) [address] [facility] Gabapentin (Neurontin -) [address] [facility] Last Admin: 09/13/16 06:30 Dose: 800 mg Heparin Sodium (Porcine) (Heparin -) 5,[address] [facility] Last Admin: 09/13/16 00:12 Dose: 5,000 unit Hydroxychloroquine Sulfate (Plaquenil -) [address] [facility] Last Admin: 09/13/16 00:31 Dose: 200 mg Imipenem/Cilastatin Sodium 500 (mg/ Sodium Chloride) 100 mls @ 100 mls/hr IVPB Q8H-IV [facility] Last Admin: 09/13/16 01:50 Dose: 100 mls/hr Sodium Chloride (Normal Saline -) 1,000 mls @ 50 mls/hr IV ASDIR [facility] Stop: 09/13/16 16:18 Last Admin: 09/12/16 18:20 Dose: 50 mls/hr Lactobacillus Acidophilus (Bacid -) [address] [facility] Lidocaine (Lidoderm Patch -) [address] [facility] Last Admin: 09/12/16 16:51 Dose: Not Given Methylprednisolone Sodium Succinate (Solu-Medrol -) 40 mg IVPB Q8H-IV [facility] Last Admin: 09/13/16 01:50 Dose: 40 mg Metoclopramide HCl (Reglan -) [address] [facility] Last Admin: 09/13/16 06:30 Dose: 10 mg Mupirocin (Bactroban Ointment (For Decolonization) -) [address] [facility] Stop: 09/17/16 21:59 Last Admin: 09/13/16 00:12 Dose: 1 applic Pantoprazole Sodium (Protonix -) [address] [facility] Last Admin: 09/13/16 00:12 Dose: 40 mg Polyethylene Glycol (Miralax (For Daily Use) -) 17 gm PO DAILY PRN PRN Reason: CONSTIPATION Ranitidine HCl (Zantac -) [address] [facility] Vancomycin HCl (Vancomycin (Pre-Docked)) 1,[address] [facility] - Objective Vital Signs: Vital Signs Temperature 97.6 F 09/13/16 06:00 Pulse Rate 77 09/13/16 06:00 Respiratory Rate 18 09/13/16 06:00 Blood Pressure 98/74 09/13/16 06:00 O2 Sat by Pulse Oximetry (%) 99 09/13/16 00:00 Constitutional: Yes: Mild Distress Cardiovascular: Yes: S1, S2 Respiratory: Yes: Rhonchi Gastrointestinal: Yes: Soft Edema: No Labs: CBC, BMP 09/13/16 05:20 09/13/16 05:20 INR, PTT INR 1.33 (0.82-1.09) H 09/13/16 05:20 Assessment/Plan Microbiology 09/12/16 15:07 Nasopharyngeal Swab Influenza Types A,B Antigen (MEKHI) - Final 09/12/16 15:07 Nasopharyngeal Swab - Final Laboratory Tests 09/12/16 09/13/16 09/13/16 13:15 05:20 05:55 WBC 15.2 H D 11.6 H Hgb 9.0 L D Hct 29.2 L D Plt Count 311 ABG pH 7.27 L ABG pCO2 at Pt Temp 44.5 Oxygen Flow Rate 40% Assessment Known chronic interstitial lung disease with frequent superimposed respiratory tract infection ? Pneumonia Substance abuse history Smoker Scleroderma History of resistant organism E Coli ESBL recent Plan Continue current antibiotics pending final cultures Stable overnight on BIPAP Steroids on board Nicolasa CAVAZOS
[2016-09-13] MEDS ORDERED: ASPIRIN 81 MG CHEWABLE TABLETS PO SCH (10:00)
[2016-09-13] MEDS ORDERED: RANITIDINE HCL 150 MG TABLET (FP) PO SCH (10:00)
[2016-09-13] MEDS ORDERED: ACLIDINIUM BROMIDE 400 MCG/INH AERO.POWD IH SCH (10:00)
[2016-09-13] MEDS ORDERED: DULoxetine HCL 30 MG CAPSULE.DR (FP) PO SCH (10:00)
[2016-09-13] MEDS ORDERED: LACTOBACILLUS ACIDOPHILUS 1 EACH TAB (FP) PO SCH (10:00)
[2016-09-13] MEDS ORDERED: VANCOMYCIN 1 GRAM (PRE-DOCKED) 1,000 MG/250 ML BAG IVPB SCH (10:00)
[2016-09-13] MEDS: LIDOCAINE 5% TOPICAL PATCH TP SCH (10:59)
--- NOTE | 2016-09-13 12:45 | PN ---
Progress Note, Physician History of Present Illness: in ICU OOB to chair feels and looks better; no CP/SOB, less cough; afebrile\ consults meds and tests reviewed with pt d/w pt again to hold off all opiates, she agreed for now! - Current Medication List Current Medications: Active Medications Acetaminophen (Tylenol -) 650 mg PO Q6H PRN PRN Reason: FEVER OR PAIN Aclidinium [place] (Tudorza -) 1 puff IH DAILY [facility] Last Admin: 09/13/16 11:03 Dose: 1 puff Albuterol Sulfate (Ventolin 0.083% Nebulizer Soln -) 1 amp NEB Q4H PRN PRN Reason: SHORT OF BREATH/WHEEZING Albuterol/Ipratropium (Duoneb -) 1 amp NEB QIDR [facility] Last Admin: 09/13/16 12:18 Dose: 1 amp Aspirin (Asa -) 81 mg PO DAILY [facility] Last Admin: 09/13/16 10:58 Dose: 81 mg Budesonide/Formoterol Fumarate (Symbicort 80/4.5mcg -) 2 puff IH BID [facility] Last Admin: 09/13/16 11:03 Dose: 2 puff Chlorhexidine Gluconate (Hibiclens For Decolonization -) 1 applic TP HS [facility] Last Admin: 09/13/16 00:12 Dose: Not Given Docusate Sodium (Colace -) 100 mg PO TID PRN PRN Reason: CONSTIPATION Duloxetine HCl (Cymbalta -) 60 mg PO DAILY [facility] Last Admin: 09/13/16 10:59 Dose: 60 mg Gabapentin (Neurontin -) 800 mg PO TID [facility] Last Admin: 09/13/16 06:30 Dose: 800 mg Heparin Sodium (Porcine) (Heparin -) 5,000 unit SQ BID [facility] Last Admin: 09/13/16 10:59 Dose: 5,000 unit Hydroxychloroquine Sulfate (Plaquenil -) 200 mg PO BID [facility] Last Admin: 09/13/16 11:02 Dose: 200 mg Imipenem/Cilastatin Sodium 500 (mg/ Sodium Chloride) 100 mls @ 100 mls/hr IVPB Q8H-IV [facility] Last Admin: 09/13/16 11:02 Dose: 100 mls/hr Sodium Chloride (Normal Saline -) 1,000 mls @ 50 mls/hr IV ASDIR [facility] Stop: 09/13/16 16:18 Last Admin: 09/12/16 18:20 Dose: 50 mls/hr Lactobacillus Acidophilus (Bacid -) 1 tab PO DAILY [facility] Last Admin: 09/13/16 10:58 Dose: 1 tab Lidocaine (Lidoderm Patch -) 1 patch TP DAILY [facility] Last Admin: 09/13/16 10:59 Dose: 1 patch Methylprednisolone Sodium Succinate (Solu-Medrol -) 40 mg IVPB Q8H-IV [facility] Last Admin: 09/13/16 11:03 Dose: 40 mg Metoclopramide HCl (Reglan -) 10 mg PO ACHS [facility] Last Admin: 09/13/16 11:04 Dose: 10 mg Mupirocin (Bactroban Ointment (For Decolonization) -) 1 applic NS BID [facility] Stop: 09/17/16 21:59 Last Admin: 09/13/16 10:58 Dose: 1 applic Pantoprazole Sodium (Protonix -) 40 mg PO BID [facility] Last Admin: 09/13/16 11:02 Dose: 40 mg Polyethylene Glycol (Miralax (For Daily Use) -) 17 gm PO DAILY PRN PRN Reason: CONSTIPATION Ranitidine HCl (Zantac -) 150 mg PO DAILY [facility] Last Admin: 09/13/16 11:04 Dose: 150 mg Vancomycin HCl (Vancomycin (Pre-Docked)) 1,000 mg IVPB DAILY [facility] Last Admin: 09/13/16 11:03 Dose: 1,000 mg - Objective Vital Signs: Vital Signs Temperature 97.6 F 09/13/16 06:00 Pulse Rate 82 09/13/16 08:00 Respiratory Rate 16 09/13/16 08:00 Blood Pressure 95/55 09/13/16 08:00 O2 Sat by Pulse Oximetry (%) 98 09/13/16 09:56 Constitutional: Yes: No Distress, Calm Eyes: Yes: Conjunctiva Clear HENT: Yes: Atraumatic Neck: Yes: Supple Cardiovascular: Yes: Regular Rate and Rhythm Respiratory: Yes: Rales, Rhonchi Gastrointestinal: Yes: Soft. No: Distention, Tenderness Genitourinary: No: CVA Tenderness - Left, CVA Tenderness - Right Musculoskeletal: No: Joint Stiffness, Joint Swelling Extremities: No: Cold, Cool Edema: No Peripheral Pulses WNL: Yes Neurological: Yes: WNL, Alert, Oriented ...Motor Strength: WNL Psychiatric: Yes: WNL, Alert, Oriented. No: Agitated Labs: CBC, BMP 09/13/16 05:20 09/13/16 05:20 INR, PTT INR 1.33 (0.82-1.09) H 09/13/16 05:20 - ....Imaging Other: Report Reviewed Assessment/Plan 51yo female with h/o COPD, scleroderma/CREST syndrome, hypothyroidism, hyperlipidemia, recurrent pneumonia attributed to aspiration, opiate dependency who presents with altered mental status and shortness of breath. Pt lethargic at arrival but woke up with narcan admitted to ICU BIPAP pulmonary and ID f/u, iv steroids; iv antibiotics; neuro and pain mnt; taper opiates to off DVT gastric falls and aspiration PFX prognosis guarded d/w pt and staff T time 40 min
--- NOTE | 2016-09-13 13:28 | PN ---
Progress Note, Physician History of Present Illness: feels much better off BiPAP breathing well in good spirits - Current Medication List Current Medications: Active Medications Acetaminophen (Tylenol -) 650 mg PO Q6H PRN PRN Reason: FEVER OR PAIN Aclidinium [place] (Tudorza -) 1 puff IH DAILY [facility] [place] Last Admin: 09/13/16 11:03 Dose: 1 puff Albuterol Sulfate (Ventolin 0.083% Nebulizer Soln -) 1 amp NEB Q4H PRN PRN Reason: SHORT OF BREATH/WHEEZING Albuterol/Ipratropium (Duoneb -) 1 amp NEB QIDR [facility] [place] Last Admin: 09/13/16 12:18 Dose: 1 amp Aspirin (Asa -) 81 mg PO DAILY [facility] [place] Last Admin: 09/13/16 10:58 Dose: 81 mg Budesonide/Formoterol Fumarate (Symbicort 80/4.5mcg -) 2 puff IH BID [facility] [place] Last Admin: 09/13/16 11:03 Dose: 2 puff Chlorhexidine Gluconate (Hibiclens For Decolonization -) 1 applic TP HS [facility] [place] Last Admin: 09/13/16 00:12 Dose: Not Given Docusate Sodium (Colace -) 100 mg PO TID PRN PRN Reason: CONSTIPATION Duloxetine HCl (Cymbalta -) 60 mg PO DAILY [facility] [place] Last Admin: 09/13/16 10:59 Dose: 60 mg Gabapentin (Neurontin -) 800 mg PO TID [facility] [place] Last Admin: 09/13/16 06:30 Dose: 800 mg Heparin Sodium (Porcine) (Heparin -) 5,000 unit SQ BID [facility] [place] Last Admin: 09/13/16 10:59 Dose: 5,000 unit Hydroxychloroquine Sulfate (Plaquenil -) 200 mg PO BID [facility] [place] Last Admin: 09/13/16 11:02 Dose: 200 mg Imipenem/Cilastatin Sodium 500 (mg/ Sodium Chloride) 100 mls @ 100 mls/hr IVPB Q8H-IV [facility] [place] Last Admin: 09/13/16 11:02 Dose: 100 mls/hr Sodium Chloride (Normal Saline -) 1,000 mls @ 50 mls/hr IV ASDIR [facility] [place] Stop: 09/13/16 16:18 Last Admin: 09/12/16 18:20 Dose: 50 mls/hr Lactobacillus Acidophilus (Bacid -) 1 tab PO DAILY [facility] [place] Last Admin: 09/13/16 10:58 Dose: 1 tab Lidocaine (Lidoderm Patch -) 1 patch TP DAILY [facility] [place] Last Admin: 09/13/16 10:59 Dose: 1 patch Methylprednisolone Sodium Succinate (Solu-Medrol -) 40 mg IVPB Q8H-IV [facility] [place] Last Admin: 09/13/16 11:03 Dose: 40 mg Metoclopramide HCl (Reglan -) 10 mg PO ACHS [facility] [place] Last Admin: 09/13/16 11:04 Dose: 10 mg Mupirocin (Bactroban Ointment (For Decolonization) -) 1 applic NS BID [facility] [place] Stop: 09/17/16 21:59 Last Admin: 09/13/16 10:58 Dose: 1 applic Pantoprazole Sodium (Protonix -) 40 mg PO BID [facility] [place] Last Admin: 09/13/16 11:02 Dose: 40 mg Polyethylene Glycol (Miralax (For Daily Use) -) 17 gm PO DAILY PRN PRN Reason: CONSTIPATION Ranitidine HCl (Zantac -) 150 mg PO DAILY [facility] [place] Last Admin: 09/13/16 11:04 Dose: 150 mg Vancomycin HCl (Vancomycin (Pre-Docked)) 1,000 mg IVPB DAILY [facility] [place] Last Admin: 09/13/16 11:03 Dose: 1,000 mg - Objective Vital Signs: Vital Signs Temperature 98.2 F 09/13/16 10:00 Pulse Rate 98 H 09/13/16 12:00 Respiratory Rate 21 09/13/16 12:00 Blood Pressure 84/56 09/13/16 12:00 O2 Sat by Pulse Oximetry (%) 98 09/13/16 09:56 Constitutional: Yes: Cachectic, Poor Hygeine, Thin, Other (tired appearing lethargic poor oral hygiene) HENT: Yes: Atraumatic Neck: Yes: Trachea Midline Cardiovascular: Yes: Regular Rate and Rhythm Respiratory: Yes: Rales, Rhonchi slightly improved Gastrointestinal: Yes: Normal Bowel Sounds, Soft Extremities: Yes: Other (cool cyanotic fingers multiple amputated fingers) Neurological: Yes: AAOX3 Labs: CBC, BMP 09/13/16 05:20 09/13/16 05:20 INR, PTT INR 1.33 (0.82-1.09) H 09/13/16 05:20 Assessment/Plan 51-year-old female with history of crest syndrome, advanced COPD, history of heavy smoking brought in by EMS for difficulty breathing over the past several days, increased lethargy and a productive cough. Likely Acute on Chronic Hypercapneic Respiratory Failure Likely Recurrent Aspiration Pneumonia Opiate Dependent - ?Overdose Altered Mental Status Acute COPD Exacerbation Acute Kidney Injury Scleroderma/CREST Syndrome COPD:Acute on chronic hypercapneic respiratory failure Admit to ICU Hold home meds BiPAP PRN Duonebs standing albuterol PRN solumedrol 40mg IV Q8h x48hrs Sepsis secondary to recurrent aspiration PNA meets SIRS criteria with likely pulmonary source given purulent sputum. patient also has esophageal dysmotility Elevated WBC count HR >90 and febrile with suspected pulmonary source UA negative Got vanco imipenem and levaquin in ED ID consult appreciated continue vanco imipenem repeat CBC Stop IVF PRASHANT: resolved was likely secondary to prerenal causes from sepsis Opioid dependence Possible overdose Hold opiates patient needs counselling prior to discharge Scleroderma/CREST outpt follow up PPx: HSQ SCDs No GI PPx indicated OOB TC FEN: stop IVF Hyponatremia resolved NPO for now CCT 35min
[2016-09-13] MEDS ORDERED: POLYETHYLENE GLYCOL 3350 119 GM BTL PO PRN (13:33)
[2016-09-13] MEDS ORDERED: DOCUSATE SODIUM 100 MG CAPSULE (FP) PO PRN (13:33)
[2016-09-13] MEDS ORDERED: ALBUTEROL SO4 0.083% IH SOL 2.5 MG/3 ML VIAL.NEB. NEB PRN (13:33)
--- NOTE | 2016-09-13 14:32 | PN ---
Teaching Attending Note Name of Resident: Dash Rojas ATTENDING PHYSICIAN STATEMENT I saw and evaluated the patient. I reviewed the resident's note and discussed the case with the resident. I agree with the resident's findings and plan as documented. SUBJECTIVE: Patient seen and examined in the ER. Awake and alert on VM O2. Used NIPPV transiently overnight. Reports breathing is better. Some dry cough. Intake & Output 09/10/16 09/11/16 09/12/16 09/13/16 23:59 23:59 23:59 23:59 Intake Total 1000 Output Total 400 200 Balance 600 -200 Weight 114 lb 15.996 oz 104 lb 9 oz Last Vital Signs Temp Pulse Resp BP Pulse Ox 98.2 F 98 H 21 84/56 98 09/13/16 10:00 09/13/16 12:00 09/13/16 12:00 09/13/16 12:00 09/13/16 09:56 Active Medications Acetaminophen (Tylenol -) 650 mg PO Q6H PRN PRN Reason: FEVER OR PAIN Aclidinium [place] (Tudorza -) 1 puff IH DAILY [facility] Albuterol Sulfate (Ventolin 0.083% Nebulizer Soln -) 1 amp NEB Q4H PRN PRN Reason: SHORT OF BREATH/WHEEZING Albuterol/Ipratropium (Duoneb -) 1 amp NEB QIDR [facility] Aspirin (Asa -) 81 mg PO DAILY [facility] Budesonide/Formoterol Fumarate (Symbicort 80/4.5mcg -) 2 puff IH BID [facility] Chlorhexidine Gluconate (Hibiclens For Decolonization -) 1 applic TP HS [facility] Docusate Sodium (Colace -) 100 mg PO TID PRN PRN Reason: CONSTIPATION Duloxetine HCl (Cymbalta -) 60 mg PO DAILY [facility] Gabapentin (Neurontin -) 800 mg PO TID [facility] Heparin Sodium (Porcine) (Heparin -) 5,000 unit SQ BID [facility] Hydroxychloroquine Sulfate (Plaquenil -) 200 mg PO BID [facility] Imipenem/Cilastatin Sodium 500 (mg/ Sodium Chloride) 100 mls @ 100 mls/hr IVPB Q8H-IV [facility] Lactobacillus Acidophilus (Bacid -) 1 tab PO DAILY [facility] Lidocaine (Lidoderm Patch -) 1 patch TP DAILY [facility] Methylprednisolone Sodium Succinate (Solu-Medrol -) 40 mg IVPB Q8H-IV [facility] Metoclopramide HCl (Reglan -) 10 mg PO ACHS [facility] Mupirocin (Bactroban Ointment (For Decolonization) -) 1 applic NS BID [facility] Stop: 09/17/16 21:59 Pantoprazole Sodium (Protonix -) 40 mg PO BID [facility] Polyethylene Glycol (Miralax (For Daily Use) -) 17 gm PO DAILY PRN PRN Reason: CONSTIPATION Ranitidine HCl (Zantac -) 150 mg PO DAILY [facility] Vancomycin HCl (Vancomycin (Pre-Docked)) 1,000 mg IVPB DAILY [facility] Gen: Awake and alert on VM O2 HEENT: poor dentition Heart: RRR Lung: distant breath sounds, , no active wheezing, scattered rhonchi Abd: soft, nontender Ext: no edema, amputated fingers Laboratory Results - last 24 hr 09/12/16 09/12/16 09/12/16 13:15 13:50 14:23 WBC RBC Hgb Hct MCV MCHC RDW Plt Count MPV INR 1.19 H PTT (Actin FS) 33.0 Puncture Site ABG pH ABG pCO2 at Pt Temp ABG pO2 at Pt Temp ABG HCO3 ABG O2 Sat (Measured) ABG O2 Content ABG Base Excess Akash Test O2 Delivery Device Oxygen Flow Rate Vent Mode Vent Rate PEEP Pressure Support Vent Sodium Potassium Chloride Carbon Dioxide Anion Gap BUN Creatinine Creat Clearance w eGFR Random Glucose Calcium Phosphorus Magnesium Total Bilirubin AST ALT Alkaline Phosphatase Total Protein Albumin Urine Color Yellow Urine Appearance Clear Urine pH 5.0 Ur Specific [place] 1.023 Urine Protein 2+ H Urine Glucose (UA) Negative Urine Ketones Negative Urine Blood Negative Urine Nitrite Negative Urine Bilirubin Negative Urine Urobilinogen Negative Ur Leukocyte Esterase Negative Urine RBC 9 Urine WBC 1 Ur Epithelial Cells Rare Opiates Screen Positive Methadone Screen Negative Barbiturate Screen Negative Phencyclidine Screen Negative Ur Amphetamines Screen Negative MDMA (Ecstasy) Screen Negative Benzodiazepines Screen Negative Cocaine Screen Negative U Marijuana (THC) Screen Negative 09/13/16 09/13/16 09/13/16 05:20 05:20 05:20 WBC 11.6 H RBC 3.62 Hgb 9.0 L D Hct 29.2 L D MCV 80.6 MCHC 30.9 L RDW 19.3 H Plt Count 311 MPV 7.7 INR 1.33 H PTT (Actin FS) 31.7 Puncture Site ABG pH ABG pCO2 at Pt Temp ABG pO2 at Pt Temp ABG HCO3 ABG O2 Sat (Measured) ABG O2 Content ABG Base Excess Akash Test O2 Delivery Device Oxygen Flow Rate Vent Mode Vent Rate PEEP Pressure Support Vent Sodium 138 Potassium 4.4 Chloride 108 H Carbon Dioxide 22 Anion Gap 8 BUN 20 H D Creatinine 0.7 D Creat Clearance w eGFR > 60 Random Glucose 123 H Calcium 8.1 L Phosphorus 2.8 Magnesium 1.9 Total Bilirubin 0.2 AST 47 H D ALT 37 D Alkaline Phosphatase 44 L D Total Protein 5.9 L D Albumin 2.4 L D Urine Color Urine Appearance Urine pH Ur Specific [place] Urine Protein Urine Glucose (UA) Urine Ketones Urine Blood Urine Nitrite Urine Bilirubin Urine Urobilinogen Ur Leukocyte Esterase Urine RBC Urine WBC Ur Epithelial Cells Opiates Screen Methadone Screen Barbiturate Screen Phencyclidine Screen Ur Amphetamines Screen MDMA (Ecstasy) Screen Benzodiazepines Screen Cocaine Screen U Marijuana (THC) Screen 09/13/16 05:55 WBC RBC Hgb Hct MCV MCHC RDW Plt Count MPV INR PTT (Actin FS) Puncture Site Right radial ABG pH 7.27 L ABG pCO2 at Pt Temp 44.5 ABG pO2 at Pt Temp 73.8 L D ABG HCO3 19.8 L ABG O2 Sat (Measured) 92.4 ABG O2 Content 11.5 L ABG Base Excess -6.2 L Akash Test Positive O2 Delivery Device Bi-pap Oxygen Flow Rate 40% Vent Mode S/t Vent Rate 14 PEEP 0.0 Pressure Support Vent 14/7 Sodium Potassium Chloride Carbon Dioxide Anion Gap BUN Creatinine Creat Clearance w eGFR Random Glucose Calcium Phosphorus Magnesium Total Bilirubin AST ALT Alkaline Phosphatase Total Protein Albumin Urine Color Urine Appearance Urine pH Ur Specific [place] Urine Protein Urine Glucose (UA) Urine Ketones Urine Blood Urine Nitrite Urine Bilirubin Urine Urobilinogen Ur Leukocyte Esterase Urine RBC Urine WBC Ur Epithelial Cells Opiates Screen Methadone Screen Barbiturate Screen Phencyclidine Screen Ur Amphetamines Screen MDMA (Ecstasy) Screen Benzodiazepines Screen Cocaine Screen U Marijuana (THC) Screen CXR: Some improvement in bilateral interstitial changes ASSESSMENT AND PLAN: Likely Acute on Chronic Hypercapneic Respiratory Failure Likely Recurrent Aspiration Pneumonia Opiate Dependent - ?Overdose Altered Mental Status Acute COPD Exacerbation Acute Kidney Injury Scleroderma/CREST Syndrome - IV antibiotics per ID - inhaled bronchodilators standing and PRN - BiPAP to assist in work of breathing and hypercapnea - Caution with narcotics/sedatives - aspiration precautions - monitor urine output, creatinine - PO as tolerated - DVT prophylaxis - 4W/4S monitoring Dr Owens CCTime 35"
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
[2016-09-13] MEDS: CHLORHEXIDINE GLUCONATE 4% CLEANSER FOR DECOLONIZATION TP SCH (21:22)
[2016-09-14] MEDS: methylPREDNISolone NA SUCC 40 MG/1 ML VIAL IVPB SCH ×3 (02:58→18:44)
[2016-09-14] MEDS: IMIPENEM/CILASTATIN SODIUM 500 MG in SODIUM CHLORIDE 100 ML IVPB SCH ×3 (03:22→18:39)
[2016-09-14 05:51] LABS: MCH 24.7 pg (25.7-33.7); MEAN CELL VOLUME 79.5 fl (80-96); MEAN PLT VOLUME 7.8 fl (7.5-11.1); NEUTROPHILS 91.6 % (42.8-82.8); PLATELET COUNT 345 K/MM3 (134-434); RDW 19.4 % (11.6-15.6); WHITE BLOOD COUNT 11.9 K/mm3 (4.0-10.0)
[2016-09-14 06:25] LABS: ALBUMIN 2.3 g/dl (3.4-5.0); ALK PHOS 41 U/L (45-117); ANION GAP 7 (8-16); BILIRUBIN,TOTAL 0.2 mg/dL (0.2-1.0); CALCIUM 8.1 mg/dL (8.5-10.1); CO2 25 mmol/L (21-32); CREATININE 0.6 mg/dL (0.55-1.02); FERRITIN 67.149 ng/ml (6.9-282.5); GLUCOSE,RANDOM 120 mg/dL (74-106); SGOT/AST 31 U/L (15-37); SGPT/ALT 32 U/L (12-78); TOT PROT 5.6 g/dl (6.4-8.2)
[2016-09-14] MEDS: METOCLOPRAMIDE HCL 10 MG TABLET (FP) PO SCH ×4 (06:31→21:36)
[2016-09-14] MEDS: GABAPENTIN 400 MG CAPSULE (FP) PO SCH ×3 (06:31→21:34)
--- NOTE | 2016-09-14 07:16 | PN ---
Progress Note, Physician Chief Complaint: ID Tis 51 year old female well known to me from repeated admission for respiratory tract infections in ICU for PNA and respiratory failure. She is on Vancomycin and Imipenem empirically as per our original consult. Seems to be getting back to her baseline self. NO fever now though had high fever on admission. Cultures reviewed - Current Medication List Current Medications: Active Medications Acetaminophen (Tylenol -) 650 mg PO Q6H PRN PRN Reason: FEVER OR PAIN Aclidinium [place] (Tudorza -) 1 puff IH DAILY [facility] Albuterol Sulfate (Ventolin 0.083% Nebulizer Soln -) 1 amp NEB Q4H PRN PRN Reason: SHORT OF BREATH/WHEEZING Albuterol/Ipratropium (Duoneb -) 1 amp NEB QIDR [facility] Last Admin: 09/13/16 23:04 Dose: Not Given Aspirin (Asa -) 81 mg PO DAILY [facility] Budesonide/Formoterol Fumarate (Symbicort 80/4.5mcg -) 2 puff IH BID [facility] Last Admin: 09/13/16 21:24 Dose: 2 puff Chlorhexidine Gluconate (Hibiclens For Decolonization -) 1 applic TP HS [facility] Last Admin: 09/13/16 21:22 Dose: 1 applic Docusate Sodium (Colace -) 100 mg PO TID PRN PRN Reason: CONSTIPATION Duloxetine HCl (Cymbalta -) 60 mg PO DAILY [facility] Gabapentin (Neurontin -) 800 mg PO TID [facility] Last Admin: 09/14/16 06:31 Dose: 800 mg Heparin Sodium (Porcine) (Heparin -) 5,000 unit SQ BID [facility] Last Admin: 09/13/16 21:22 Dose: 5,000 unit Hydroxychloroquine Sulfate (Plaquenil -) 200 mg PO BID [facility] Last Admin: 09/13/16 21:23 Dose: 200 mg Imipenem/Cilastatin Sodium 500 (mg/ Sodium Chloride) 100 mls @ 100 mls/hr IVPB Q8H-IV [facility] Last Admin: 09/14/16 03:22 Dose: 100 mls/hr Lactobacillus Acidophilus (Bacid -) 1 tab PO DAILY [facility] Lidocaine (Lidoderm Patch -) 1 patch TP DAILY [facility] Methylprednisolone Sodium Succinate (Solu-Medrol -) 40 mg IVPB Q8H-IV [facility] Last Admin: 09/14/16 02:58 Dose: 40 mg Metoclopramide HCl (Reglan -) 10 mg PO ACHS [facility] Last Admin: 09/14/16 06:31 Dose: 10 mg Mupirocin (Bactroban Ointment (For Decolonization) -) 1 applic NS BID [facility] Stop: 09/17/16 21:59 Last Admin: 09/13/16 21:23 Dose: 1 applic Pantoprazole Sodium (Protonix -) 40 mg PO BID [facility] Last Admin: 09/13/16 21:22 Dose: 40 mg Polyethylene Glycol (Miralax (For Daily Use) -) 17 gm PO DAILY PRN PRN Reason: CONSTIPATION Ranitidine HCl (Zantac -) 150 mg PO DAILY [facility] Vancomycin HCl (Vancomycin (Pre-Docked)) 1,000 mg IVPB DAILY [facility] - Objective Vital Signs: Vital Signs Temperature 98.7 F 09/13/16 22:00 Pulse Rate 74 09/14/16 02:00 Respiratory Rate 18 09/14/16 02:00 Blood Pressure 99/61 09/14/16 02:00 O2 Sat by Pulse Oximetry (%) 100 09/13/16 21:00 Constitutional: Yes: Mild Distress, Thin Eyes: Yes: WNL, Conjunctiva Clear HENT: Yes: WNL, Atraumatic Neck: Yes: WNL, Supple Cardiovascular: Yes: Regular Rate and Rhythm, S1, S2. No: Murmur, Rub Respiratory: Yes: WNL, CTA Bilaterally, Rales, Other (Bilateral rales) Gastrointestinal: Yes: WNL, Normal Bowel Sounds, Soft. No: Tenderness, Tenderness, Rebound Extremities: Yes: Other (Changes of scleroderma) Labs: CBC, BMP 09/14/16 04:50 09/14/16 04:50 INR, PTT INR 1.33 (0.82-1.09) H 09/13/16 05:20 Assessment/Plan Microbiology 09/12/16 16:10 Urine For Antigen Detection Legionella Antigen - Final 09/12/16 16:10 Urine For Antigen Detection Streptococcus pneumoniae Antigen (M - Final 09/12/16 15:07 Nasopharyngeal Swab Influenza Types A,B Antigen ([facility]) - Final 09/12/16 15:07 Nasopharyngeal Swab - Final 09/12/16 13:03 Urine - Urine - Catheterized Urine Culture - Final NO GROWTH OBTAINED 09/12/16 14:23 Sputum - Expectorated Sputum Culture - Preliminary Lactose Fermenting Neg Bacilli 09/12/16 12:55 Blood - Peripheral Venous Blood Culture - Preliminary NO GROWTH OBTAINED AFTER 24 HOURS, INCUBATION TO CONTINUE FOR 4 DAYS. 09/12/16 12:50 Blood - Peripheral Venous Blood Culture - Preliminary NO GROWTH OBTAINED AFTER 24 HOURS, INCUBATION TO CONTINUE FOR 4 DAYS. Laboratory Tests 09/12/16 09/12/16 09/13/16 13:15 14:23 05:55 WBC 15.2 H D Hgb Hct Plt Count ABG pCO2 at Pt Temp 44.5 Oxygen Flow Rate 40% BUN Creatinine Creat Clearance w eGFR Opiates Screen Positive 09/14/16 09/14/16 04:50 04:50 WBC 11.9 H Hgb 8.9 L Hct 28.7 L Plt Count 345 ABG pCO2 at Pt Temp Oxygen Flow Rate BUN 18 Creatinine 0.6 Creat Clearance w eGFR > 60 Opiates Screen Assessment Hypercapneic respiratory failure improving Pneumonia superimposed on chronic interstitial lung desease Scleroderma with CREST syndrome Opiate dependence Chronic pain management PRASHANT resolving Plan All cultures reviewed No evidence for MRSA therefore will stop Vancomycin Would scsreen nares for MRSA Has a LF GNB in sputum this is consistent with her severe PNA. This could be a resistant ESBL ( again) She is appropriately o a carbepenem at least until we see final sensitivity. Continue Imipenem until tomorrow then see of " deescalation" possible 39 minute spent in ICU revieweing all of above. Transfer to floor pending Nicolasa CAVAZOS
[2016-09-14] MEDS: ALBUTEROL SO4 2.5/IPRATROPIUM 0.5 INH SOL 3 ML VIAL.NEB. NEB SCH ×3 (07:18→17:15)
[2016-09-14] MEDS ORDERED: VANCOMYCIN 1 GRAM (PRE-DOCKED) 1,000 MG/250 ML BAG IVPB SCH (10:00)
--- NOTE | 2016-09-14 10:10 | PN ---
Progress Note, Physician Chief Complaint: feels better but still coughing; afebrile, no CP; no SOB d/w pt again about opiates tapering, she agreed to go to Rehab, called dr Marquis Robledo tests meds and results reviewed and d/w pt - Current Medication List Current Medications: Active Medications Acetaminophen (Tylenol -) 650 mg PO Q6H PRN PRN Reason: FEVER OR PAIN Aclidinium [place] (Tudorza -) 1 puff IH DAILY [facility] Albuterol Sulfate (Ventolin 0.083% Nebulizer Soln -) 1 amp NEB Q4H PRN PRN Reason: SHORT OF BREATH/WHEEZING Albuterol/Ipratropium (Duoneb -) 1 amp NEB QIDR [facility] Last Admin: 09/14/16 07:18 Dose: 1 amp Aspirin (Asa -) 81 mg PO DAILY [facility] Budesonide/Formoterol Fumarate (Symbicort 80/4.5mcg -) 2 puff IH BID [facility] Last Admin: 09/13/16 21:24 Dose: 2 puff Chlorhexidine Gluconate (Hibiclens For Decolonization -) 1 applic TP HS [facility] Last Admin: 09/13/16 21:22 Dose: 1 applic Docusate Sodium (Colace -) 100 mg PO TID PRN PRN Reason: CONSTIPATION Duloxetine HCl (Cymbalta -) 60 mg PO DAILY [facility] Gabapentin (Neurontin -) 800 mg PO TID [facility] Last Admin: 09/14/16 06:31 Dose: 800 mg Heparin Sodium (Porcine) (Heparin -) 5,000 unit SQ BID [facility] Last Admin: 09/13/16 21:22 Dose: 5,000 unit Hydroxychloroquine Sulfate (Plaquenil -) 200 mg PO BID [facility] Last Admin: 09/13/16 21:23 Dose: 200 mg Imipenem/Cilastatin Sodium 500 (mg/ Sodium Chloride) 100 mls @ 100 mls/hr IVPB Q8H-IV [facility] Last Admin: 09/14/16 03:22 Dose: 100 mls/hr Lactobacillus Acidophilus (Bacid -) 1 tab PO DAILY [facility] Lidocaine (Lidoderm Patch -) 1 patch TP DAILY [facility] Methylprednisolone Sodium Succinate (Solu-Medrol -) 40 mg IVPB Q8H-IV [facility] Last Admin: 09/14/16 02:58 Dose: 40 mg Metoclopramide HCl (Reglan -) 10 mg PO ACHS [facility] Last Admin: 09/14/16 06:31 Dose: 10 mg Mupirocin (Bactroban Ointment (For Decolonization) -) 1 applic NS BID [facility] Stop: 09/17/16 21:59 Last Admin: 09/13/16 21:23 Dose: 1 applic Pantoprazole Sodium (Protonix -) 40 mg PO BID [facility] Last Admin: 09/13/16 21:22 Dose: 40 mg Polyethylene Glycol (Miralax (For Daily Use) -) 17 gm PO DAILY PRN PRN Reason: CONSTIPATION Ranitidine HCl (Zantac -) 150 mg PO DAILY [facility] - Objective Vital Signs: Vital Signs Temperature 97.8 F 09/14/16 06:00 Pulse Rate 86 09/14/16 08:00 Respiratory Rate 19 09/14/16 08:00 Blood Pressure 118/74 09/14/16 08:00 O2 Sat by Pulse Oximetry (%) 94 L 09/14/16 08:00 Constitutional: Yes: No Distress, Calm Eyes: Yes: Conjunctiva Clear HENT: Yes: Atraumatic Neck: Yes: Supple Cardiovascular: Yes: Regular Rate and Rhythm Respiratory: Yes: Rales Gastrointestinal: Yes: Soft. No: Distention, Tenderness Genitourinary: No: CVA Tenderness - Left, CVA Tenderness - Right Musculoskeletal: No: Joint Stiffness, Joint Swelling Extremities: No: Cold, Cool Edema: No Peripheral Pulses WNL: Yes Integumentary: No: Rash, Venous Stasis Changes Neurological: Yes: WNL, Alert, Oriented ...Motor Strength: WNL Psychiatric: Yes: WNL, Alert, Oriented. No: Agitated, Suicidal Ideation Labs: CBC, BMP 09/14/16 04:50 09/14/16 04:50 INR, PTT INR 1.33 (0.82-1.09) H 09/13/16 05:20 - ....Imaging Other: Report Reviewed Assessment/Plan 51yo female with h/o COPD, scleroderma/CREST syndrome, hypothyroidism, hyperlipidemia, recurrent pneumonia attributed to aspiration, opiate dependency who presents with altered mental status and shortness of breath. Pt lethargic at arrival but woke up with narcan O2 NC prn pulmonary, neurology and ID f/u, iv steroids; iv antibiotics; neuro and pain mnt; taper opiates to off DVT gastric falls and aspiration PFX prognosis guarded opiates rehab d/w pt and staff T time 35 min
--- NOTE | 2016-09-14 11:25 | PN ---
Progress Note, Physician History of Present Illness: feels much better off BiPAP on nasal cannula breathing well in good spirits - Current Medication List Current Medications: Active Medications Acetaminophen (Tylenol -) 650 mg PO Q6H PRN PRN Reason: FEVER OR PAIN Aclidinium [place] (Tudorza -) 1 puff IH DAILY [facility] Albuterol Sulfate (Ventolin 0.083% Nebulizer Soln -) 1 amp NEB Q4H PRN PRN Reason: SHORT OF BREATH/WHEEZING Albuterol/Ipratropium (Duoneb -) 1 amp NEB QIDR [facility] Last Admin: 09/14/16 07:18 Dose: 1 amp Aspirin (Asa -) 81 mg PO DAILY [facility] Budesonide/Formoterol Fumarate (Symbicort 80/4.5mcg -) 2 puff IH BID [facility] Last Admin: 09/13/16 21:24 Dose: 2 puff Chlorhexidine Gluconate (Hibiclens For Decolonization -) 1 applic TP HS [facility] Last Admin: 09/13/16 21:22 Dose: 1 applic Docusate Sodium (Colace -) 100 mg PO TID PRN PRN Reason: CONSTIPATION Duloxetine HCl (Cymbalta -) 60 mg PO DAILY [facility] Gabapentin (Neurontin -) 800 mg PO TID [facility] Last Admin: 09/14/16 06:31 Dose: 800 mg Heparin Sodium (Porcine) (Heparin -) 5,000 unit SQ BID [facility] Last Admin: 09/13/16 21:22 Dose: 5,000 unit Hydroxychloroquine Sulfate (Plaquenil -) 200 mg PO BID [facility] Last Admin: 09/13/16 21:23 Dose: 200 mg Imipenem/Cilastatin Sodium 500 (mg/ Sodium Chloride) 100 mls @ 100 mls/hr IVPB Q8H-IV [facility] Last Admin: 09/14/16 03:22 Dose: 100 mls/hr Lactobacillus Acidophilus (Bacid -) 1 tab PO DAILY [facility] Lidocaine (Lidoderm Patch -) 1 patch TP DAILY [facility] Methylprednisolone Sodium Succinate (Solu-Medrol -) 40 mg IVPB Q8H-IV [facility] Last Admin: 09/14/16 02:58 Dose: 40 mg Metoclopramide HCl (Reglan -) 10 mg PO ACHS [facility] Last Admin: 09/14/16 06:31 Dose: 10 mg Mupirocin (Bactroban Ointment (For Decolonization) -) 1 applic NS BID [facility] Stop: 09/17/16 21:59 Last Admin: 09/13/16 21:23 Dose: 1 applic Pantoprazole Sodium (Protonix -) 40 mg PO BID [facility] Last Admin: 09/13/16 21:22 Dose: 40 mg Polyethylene Glycol (Miralax (For Daily Use) -) 17 gm PO DAILY PRN PRN Reason: CONSTIPATION Ranitidine HCl (Zantac -) 150 mg PO DAILY [facility] - Objective Vital Signs: Vital Signs Temperature 98.8 F 09/14/16 10:00 Pulse Rate 76 09/14/16 10:00 Respiratory Rate 18 09/14/16 10:00 Blood Pressure 106/62 09/14/16 10:00 O2 Sat by Pulse Oximetry (%) 94 L 09/14/16 08:00 Constitutional: Yes: Cachectic, Poor Hygeine, Thin, Other (tired appearing lethargic poor oral hygiene) HENT: Yes: Atraumatic Neck: Yes: Trachea Midline Cardiovascular: Yes: Regular Rate and Rhythm Respiratory: Yes: Rales, Rhonchi slightly improving Gastrointestinal: Yes: Normal Bowel Sounds, Soft Extremities: Yes: Other (cool cyanotic fingers multiple amputated fingers) Neurological: Yes: AAOX3 Labs: CBC, BMP 09/14/16 04:50 09/14/16 04:50 INR, PTT INR 1.33 (0.82-1.09) H 09/13/16 05:20 Assessment/Plan 51-year-old female with history of crest syndrome, advanced COPD, history of heavy smoking brought in by EMS for difficulty breathing over the past several days, increased lethargy and a productive cough. Likely Acute on Chronic Hypercapneic Respiratory Failure Likely Recurrent Aspiration Pneumonia Opiate Dependent - ?Overdose Altered Mental Status Acute COPD Exacerbation Acute Kidney Injury Scleroderma/CREST Syndrome COPD:Acute on chronic hypercapneic respiratory failure continue home meds BiPAP PRN not needed so far Duonebs standing albuterol PRN solumedrol 40mg IV Q8h x48hrs will taper today to BID Sepsis secondary to recurrent aspiration PNA meets SIRS criteria with likely pulmonary source given purulent sputum. patient also has esophageal dysmotility Elevated WBC count HR >90 and febrile with suspected pulmonary source UA negative Got vanco imipenem and levaquin in ED ID consult appreciated continue vanco imipenem +sputum culture for klebsiella +ESBL web producer PRASHANT: resolved was likely secondary to prerenal causes from sepsis Opioid dependence Possible overdose Hold opiates patient needs counselling prior to discharge Scleroderma/CREST outpt follow up PPx: HSQ SCDs No GI PPx indicated OOB TC FEN: stop IVF Hyponatremia resolved NPO for now CCT 35min transfer to floor
[2016-09-14] MEDS ORDERED: PT OWN MED DRAWER 7, Y5N ONE (11:31)
[2016-09-14] MEDS: ASPIRIN 81 MG CHEWABLE TABLETS PO SCH (11:32)
[2016-09-14] MEDS: LACTOBACILLUS ACIDOPHILUS 1 EACH TAB (FP) PO SCH (11:34)
[2016-09-14] MEDS: MUPIROCIN 2% TOPICAL OINTMENT FOR DECOLONIZATION NS SCH ×2 (11:34→21:36)
[2016-09-14] MEDS: DULoxetine HCL 30 MG CAPSULE.DR (FP) PO SCH (11:35)
[2016-09-14] MEDS: HEPARIN NA (PORCINE) 5,000 UNITS/ML 1ML VIAL SQ SCH ×2 (11:36→21:34)
[2016-09-14] MEDS: LIDOCAINE 5% TOPICAL PATCH TP SCH (11:36)
[2016-09-14] MEDS: HYDROXYCHLOROQUINE SO4 200 MG TABLET (FP) PO SCH ×2 (11:37→22:59)
[2016-09-14] MEDS: ACLIDINIUM BROMIDE 400 MCG/INH AERO.POWD IH SCH (11:38)
[2016-09-14] MEDS: PANTOPRAZOLE 40 MG TABLET (FP) PO SCH ×2 (11:38→21:38)
[2016-09-14] MEDS: BUDESONIDE/FORMETEROL FUMARATE 80/4.5 mcg INHALER IH SCH ×2 (11:38→22:59)
[2016-09-14] MEDS: RANITIDINE HCL 150 MG TABLET (FP) PO SCH (11:39)
[2016-09-14] MEDS: ACETAMINOPHEN 325 MG TABLET (FP) PO PRN ×2 (11:40→21:39)
--- NOTE | 2016-09-14 11:55 | PN ---
Teaching Attending Note Name of Resident: Dash Rojas ATTENDING PHYSICIAN STATEMENT I saw and evaluated the patient. I reviewed the resident's note and discussed the case with the resident. I agree with the resident's findings and plan as documented. SUBJECTIVE: Patient seen and examined in the ICU. Awake and alert on NC O2. Did not use NIPPV overnight. Reports breathing is better. Some dry cough. (+) LBP Intake & Output 09/11/16 09/12/16 09/13/16 09/14/16 23:59 23:59 23:59 23:59 Intake Total 1000 1660 200 Output Total 400 200 Balance 600 1460 200 Weight 114 lb 15.996 oz 104 lb 9 oz 101 lb 14.4 oz Last Vital Signs Temp Pulse Resp BP Pulse Ox 98.8 F 76 18 106/62 94 L 09/14/16 10:00 09/14/16 10:00 09/14/16 10:00 09/14/16 10:00 09/14/16 08:00 Active Medications Acetaminophen (Tylenol -) 650 mg PO Q6H PRN PRN Reason: FEVER OR PAIN Last Admin: 09/14/16 11:40 Dose: 650 mg Aclidinium [place] (Tudorza -) 1 puff IH DAILY [facility] Last Admin: 09/14/16 11:38 Dose: 1 puff Albuterol Sulfate (Ventolin 0.083% Nebulizer Soln -) 1 amp NEB Q4H PRN PRN Reason: SHORT OF BREATH/WHEEZING Albuterol/Ipratropium (Duoneb -) 1 amp NEB QIDR [facility] Last Admin: 09/14/16 11:44 Dose: 1 amp Aspirin (Asa -) 81 mg PO DAILY [facility] Last Admin: 09/14/16 11:32 Dose: 81 mg Budesonide/Formoterol Fumarate (Symbicort 80/4.5mcg -) 2 puff IH BID [facility] Last Admin: 09/14/16 11:38 Dose: 2 puff Chlorhexidine Gluconate (Hibiclens For Decolonization -) 1 applic TP HS [facility] Last Admin: 09/13/16 21:22 Dose: 1 applic Cyclobenzaprine HCl (Flexeril -) 5 mg PO BID [facility] Docusate Sodium (Colace -) 100 mg PO TID PRN PRN Reason: CONSTIPATION Duloxetine HCl (Cymbalta -) 60 mg PO DAILY [facility] Last Admin: 09/14/16 11:35 Dose: 60 mg Gabapentin (Neurontin -) 800 mg PO TID [facility] Last Admin: 09/14/16 06:31 Dose: 800 mg Heparin Sodium (Porcine) (Heparin -) 5,000 unit SQ BID [facility] Last Admin: 09/14/16 11:36 Dose: 5,000 unit Hydroxychloroquine Sulfate (Plaquenil -) 200 mg PO BID [facility] Last Admin: 09/14/16 11:37 Dose: 200 mg Imipenem/Cilastatin Sodium 500 (mg/ Sodium Chloride) 100 mls @ 100 mls/hr IVPB Q8H-IV [facility] Last Admin: 09/14/16 11:37 Dose: 100 mls/hr Ibuprofen (Motrin -) 600 mg PO Q12H PRN PRN Reason: PAIN Lactobacillus Acidophilus (Bacid -) 1 tab PO DAILY [facility] Last Admin: 09/14/16 11:34 Dose: 1 tab Lidocaine (Lidoderm Patch -) 1 patch TP DAILY [facility] Last Admin: 09/14/16 11:36 Dose: 1 patch Methylprednisolone Sodium Succinate (Solu-Medrol -) 40 mg IVPB Q8H-IV [facility] Last Admin: 09/14/16 11:38 Dose: 40 mg Metoclopramide HCl (Reglan -) 10 mg PO ACHS [facility] Last Admin: 09/14/16 11:39 Dose: 10 mg Mupirocin (Bactroban Ointment (For Decolonization) -) 1 applic NS BID [facility] Stop: 09/17/16 21:59 Last Admin: 09/14/16 11:34 Dose: 1 applic Pantoprazole Sodium (Protonix -) 40 mg PO BID [facility] Last Admin: 09/14/16 11:38 Dose: 40 mg Polyethylene Glycol (Miralax (For Daily Use) -) 17 gm PO DAILY PRN PRN Reason: CONSTIPATION Ranitidine HCl (Zantac -) 150 mg PO DAILY [facility] Last Admin: 09/14/16 11:39 Dose: 150 mg Gen: Awake and alert on NC O2 HEENT: poor dentition Heart: RRR Lung: distant breath sounds, , no active wheezing, scattered rhonchi Abd: soft, nontender Ext: no edema, amputated fingers Laboratory Results - last 24 hr 09/14/16 09/14/16 04:50 04:50 WBC 11.9 H RBC 3.61 Hgb 8.9 L Hct 28.7 L MCV 79.5 L MCHC 31.0 L RDW 19.4 H Plt Count 345 MPV 7.8 Neutrophils % 91.6 H Lymphocytes % 5.6 L Monocytes % 2.8 L Eosinophils % 0.0 D Basophils % 0.0 Sodium 141 Potassium 3.9 Chloride 109 H Carbon Dioxide 25 Anion Gap 7 L BUN 18 Creatinine 0.6 Creat Clearance w eGFR > 60 Random Glucose 120 H Calcium 8.1 L Ferritin 67.149 Total Bilirubin 0.2 AST 31 D ALT 32 Alkaline Phosphatase 41 L Total Protein 5.6 L Albumin 2.3 L CXR: No gross change ASSESSMENT AND PLAN: Likely Acute on Chronic Hypercapneic Respiratory Failure Likely Recurrent Aspiration Pneumonia Opiate Dependent - ?Overdose Altered Mental Status Acute COPD Exacerbation Acute Kidney Injury Scleroderma/CREST Syndrome - IV antibiotics per ID - inhaled bronchodilators standing and PRN - Steroid taper - BiPAP to assist in work of breathing and hypercapnia - Caution with narcotics/sedatives - aspiration precautions - monitor urine output, creatinine - PO as tolerated - DVT prophylaxis - 4W/4S monitoring Dr Owens CCTime 35"
[2016-09-14] MEDS: IBUPROFEN 600 MG TABLET (FP) PO PRN ×2 (12:00→23:12)
--- NOTE | 2016-09-14 14:18 | CONSULT ---
Consult Detox [facility] Reason for Current Admission/Consult: OPIOID DETOX Referred by:: NAIDA QUINTERO MD - History History of Present Illness: 51 Y/O WOMAN PREVIOUSLY SEEN BY ME IN APRIL 2016 FOR OPIATE DETOX. AT THAT TIME PT. REFUSED DETOX BECAUSE SHE FELT THAT SHE NEEDED HER PAIN MEDS. TODAY SHE TELLS ME THAT SHE'S READY TO COME OFF ALL OPIATES, HOWEVER SHE'LL BE DOING IT OUT-PT. - History Source History Provided By: Patient, Medical Record Limitations to Obtaining History: No Limitations - Alcohol/Substance Use Hx Alcohol Use: No - Current Drug/Alcohol Use Oxycontin Route: Oral Frequency: Daily Amount used: 80MG TID Age of first use: 34 Date of Last Use: 09/12/16 - Past Medical History FIRST MATE: Yes: Peripheral Neuropathy Cardio/Vascular: Yes: Other (Raynaud's w/ multiple upper extremity digit amputations. Normal coronaries on cardiac cath and EF 65% with mild AI, trace MR and TR on echo @ [facility] 03/31) Pulmonary: Yes: Asthma, COPD, Pneumonia, Other (lung mass of undetermined etiology) Gastrointestinal: Yes: Constipation, Diverticulitis, Diverticulosis (small bowel diverticular perforation, scleroderma affecting the esophagus, Bonner's esophagus, Schatzki ring,GAVE syndrome, antral ulcer, gastroparesis related to scleroderma), GERD (with long segment Bonner's esophagus and patent Schatzki ring), Peptic Ulcer Disease (antral ulcer ), Other (Bonner's esophagus, GERD, Schatzki ring, perforation of small bowel diverticulum, antral ulcer, scleroderma causing esophageal dysmotility and gastroparesis) Renal/: Yes: Renal Failure Infectious Disease: Yes: MRSA (bursitis) Psych: Yes: Addictions (marijuana,tobacco and prescription narcotics) Musculoskeletal: Yes: Chronic low back pain, Other (has spinal stimulator) Rheumatology: Yes: Vasculitis, Other (Scleroderma, Raynauds and CREST syndrome) Endocrine: Yes: Hypothyroidism, Other (Malnutrition, osteoporosis) Dermatology: Yes: Cellulitis - Past Surgical History Past Surgical History: Yes: Appendectomy, Colonoscopy, Upper Endoscopy - Significant Medical Findings: Laboratory Tests 09/12/16 09/12/16 09/12/16 13:15 13:15 13:15 WBC 15.2 H D RBC 4.27 Hgb 10.6 L Hct 35.0 MCV 82.0 MCHC 30.3 L RDW 19.2 H Plt Count 329 D MPV 8.1 D Neutrophils % 88.0 H Lymphocytes % 4.9 L D Monocytes % 4.6 Eosinophils % 2.3 D Basophils % 0.2 INR 1.19 H PTT (Actin FS) 33.0 Puncture Site ABG pH ABG pCO2 at Pt Temp ABG pO2 at Pt Temp ABG HCO3 ABG O2 Sat (Measured) ABG O2 Content ABG Base Excess Akash Test O2 Delivery Device Oxygen Flow Rate Vent Mode Vent Rate PEEP Pressure Support Vent Sodium 133 L Potassium 4.4 Chloride 104 Carbon Dioxide 19 L D Anion Gap 10 BUN 37 H D Creatinine 1.3 H D Creat Clearance w eGFR 43.01 Random Glucose 127 H Lactic Acid Calcium 9.2 Phosphorus Magnesium Ferritin Total Bilirubin 0.2 AST 95 H D ALT 54 D Alkaline Phosphatase 58 D Total Protein 7.9 D Albumin 3.4 D Urine Color Urine Appearance Urine pH Ur Specific [place] Urine Protein Urine Glucose (UA) Urine Ketones Urine Blood Urine Nitrite Urine Bilirubin Urine Urobilinogen Ur Leukocyte Esterase Urine RBC Urine WBC Ur Epithelial Cells Opiates Screen Methadone Screen Barbiturate Screen Phencyclidine Screen Ur Amphetamines Screen MDMA (Ecstasy) Screen Benzodiazepines Screen Cocaine Screen U Marijuana (THC) Screen 09/12/16 09/12/16 09/12/16 13:15 13:50 14:23 WBC RBC Hgb Hct MCV MCHC RDW Plt Count MPV Neutrophils % Lymphocytes % Monocytes % Eosinophils % Basophils % INR PTT (Actin FS) Puncture Site ABG pH ABG pCO2 at Pt Temp ABG pO2 at Pt Temp ABG HCO3 ABG O2 Sat (Measured) ABG O2 Content ABG Base Excess Akash Test O2 Delivery Device Oxygen Flow Rate Vent Mode Vent Rate PEEP Pressure Support Vent Sodium Potassium Chloride Carbon Dioxide Anion Gap BUN Creatinine Creat Clearance w eGFR Random Glucose Lactic Acid 0.690 Calcium Phosphorus Magnesium Ferritin Total Bilirubin AST ALT Alkaline Phosphatase Total Protein Albumin Urine Color Yellow Urine Appearance Clear Urine pH 5.0 Ur Specific [place] 1.023 Urine Protein 2+ H Urine Glucose (UA) Negative Urine Ketones Negative Urine Blood Negative Urine Nitrite Negative Urine Bilirubin Negative Urine Urobilinogen Negative Ur Leukocyte Esterase Negative Urine RBC 9 Urine WBC 1 Ur Epithelial Cells Rare Opiates Screen Positive Methadone Screen Negative Barbiturate Screen Negative Phencyclidine Screen Negative Ur Amphetamines Screen Negative MDMA (Ecstasy) Screen Negative Benzodiazepines Screen Negative Cocaine Screen Negative U Marijuana (THC) Screen Negative 09/13/16 09/13/16 09/13/16 05:20 05:20 05:20 WBC 11.6 H RBC 3.62 Hgb 9.0 L D Hct 29.2 L D MCV 80.6 MCHC 30.9 L RDW 19.3 H Plt Count 311 MPV 7.7 Neutrophils % Lymphocytes % Monocytes % Eosinophils % Basophils % INR 1.33 H PTT (Actin FS) 31.7 Puncture Site ABG pH ABG pCO2 at Pt Temp ABG pO2 at Pt Temp ABG HCO3 ABG O2 Sat (Measured) ABG O2 Content ABG Base Excess Akash Test O2 Delivery Device Oxygen Flow Rate Vent Mode Vent Rate PEEP Pressure Support Vent Sodium 138 Potassium 4.4 Chloride 108 H Carbon Dioxide 22 Anion Gap 8 BUN 20 H D Creatinine 0.7 D Creat Clearance w eGFR > 60 Random Glucose 123 H Lactic Acid Calcium 8.1 L Phosphorus 2.8 Magnesium 1.9 Ferritin Total Bilirubin 0.2 AST 47 H D ALT 37 D Alkaline Phosphatase 44 L D Total Protein 5.9 L D Albumin 2.4 L D Urine Color Urine Appearance Urine pH Ur Specific [place] Urine Protein Urine Glucose (UA) Urine Ketones Urine Blood Urine Nitrite Urine Bilirubin Urine Urobilinogen Ur Leukocyte Esterase Urine RBC Urine WBC Ur Epithelial Cells Opiates Screen Methadone Screen Barbiturate Screen Phencyclidine Screen Ur Amphetamines Screen MDMA (Ecstasy) Screen Benzodiazepines Screen Cocaine Screen U Marijuana (THC) Screen 09/13/16 09/14/16 09/14/16 05:55 04:50 04:50 WBC 11.9 H RBC 3.61 Hgb 8.9 L Hct 28.7 L MCV 79.5 L MCHC 31.0 L RDW 19.4 H Plt Count 345 MPV 7.8 Neutrophils % 91.6 H Lymphocytes % 5.6 L Monocytes % 2.8 L Eosinophils % 0.0 D Basophils % 0.0 INR PTT (Actin FS) Puncture Site Right radial ABG pH 7.27 L ABG pCO2 at Pt Temp 44.5 ABG pO2 at Pt Temp 73.8 L D ABG HCO3 19.8 L ABG O2 Sat (Measured) 92.4 ABG O2 Content 11.5 L ABG Base Excess -6.2 L Akash Test Positive O2 Delivery Device Bi-pap Oxygen Flow Rate 40% Vent Mode S/t Vent Rate 14 PEEP 0.0 Pressure Support Vent 14/7 Sodium 141 Potassium 3.9 Chloride 109 H Carbon Dioxide 25 Anion Gap 7 L BUN 18 Creatinine 0.6 Creat Clearance w eGFR > 60 Random Glucose 120 H Lactic Acid Calcium 8.1 L Phosphorus Magnesium Ferritin 67.149 Total Bilirubin 0.2 AST 31 D ALT 32 Alkaline Phosphatase 41 L Total Protein 5.6 L Albumin 2.3 L Urine Color Urine Appearance Urine pH Ur Specific [place] Urine Protein Urine Glucose (UA) Urine Ketones Urine Blood Urine Nitrite Urine Bilirubin Urine Urobilinogen Ur Leukocyte Esterase Urine RBC Urine WBC Ur Epithelial Cells Opiates Screen Methadone Screen Barbiturate Screen Phencyclidine Screen Ur Amphetamines Screen MDMA (Ecstasy) Screen Benzodiazepines Screen Cocaine Screen U Marijuana (THC) Screen LABS NOTED Assessment Plan - Diagnosis (1) COPD exacerbation Status: Acute (2) Lumbar back pain Status: Acute Qualifiers: Chronicity: chronic (3) CREST (calcinosis, Raynaud's phenomenon, esophageal dysfunction, sclerodactyly, telangiectasia) Status: Acute (4) Chronic use of opiate drugs therapeutic purposes Status: Acute (5) Opioid dependence, uncomplicated Status: Acute - Plan Plan: PT. PREFERS AMBULATORY DETOX
[2016-09-14] MEDS ORDERED: VANCOMYCIN 1 GRAM (PRE-DOCKED) 1,000 MG/250 ML BAG IVPB ONE (17:45)
[2016-09-14] MEDS: CYCLOBENZAPRINE HCL 10 MG TABLET (FP) PO SCH (21:36)
[2016-09-14] MEDS: CHLORHEXIDINE GLUCONATE 4% CLEANSER FOR DECOLONIZATION TP SCH (21:38)
[2016-09-15] MEDS: ALBUTEROL SO4 2.5/IPRATROPIUM 0.5 INH SOL 3 ML VIAL.NEB. NEB SCH ×3 (00:14→17:54)
[2016-09-15] MEDS: methylPREDNISolone NA SUCC 40 MG/1 ML VIAL IVPB SCH ×4 (00:59→23:18)
[2016-09-15] MEDS: IMIPENEM/CILASTATIN SODIUM 500 MG in SODIUM CHLORIDE 100 ML IVPB SCH (01:38)
[2016-09-15] MEDS: ACETAMINOPHEN 325 MG TABLET (FP) PO PRN ×4 (03:44→20:24)
[2016-09-15] MEDS: METOCLOPRAMIDE HCL 10 MG TABLET (FP) PO SCH ×4 (06:11→21:33)
[2016-09-15] MEDS: GABAPENTIN 400 MG CAPSULE (FP) PO SCH ×3 (06:11→21:33)
[2016-09-15 07:57] LABS: EOSINOPHIL 0.1 % (0-4.5); MCHC 31.6 g/dl (32.0-36.0); MEAN CELL VOLUME 79.3 fl (80-96); MEAN PLT VOLUME 7.6 fl (7.5-11.1); NEUTROPHILS 92.1 % (42.8-82.8); PLATELET COUNT 309 K/MM3 (134-434); WHITE BLOOD COUNT 12.5 K/mm3 (4.0-10.0)
--- NOTE | 2016-09-15 08:16 | PN ---
Progress Note, Physician Chief Complaint: ID Imipenem Chronic couph Afebrile - Current Medication List Current Medications: Active Medications Acetaminophen (Tylenol -) 650 mg PO Q6H PRN PRN Reason: FEVER OR PAIN Last Admin: 09/15/16 03:44 Dose: 650 mg Aclidinium Maddock (Tudorza -) 1 puff IH DAILY [facility] Last Admin: 09/14/16 11:38 Dose: 1 puff Albuterol Sulfate (Ventolin 0.083% Nebulizer Soln -) 1 amp NEB Q4H PRN PRN Reason: SHORT OF BREATH/WHEEZING Albuterol/Ipratropium (Duoneb -) 1 amp NEB QIDR [facility] Last Admin: 09/15/16 07:05 Dose: 1 amp Aspirin (Asa -) 81 mg PO DAILY [facility] Last Admin: 09/14/16 11:32 Dose: 81 mg Budesonide/Formoterol Fumarate (Symbicort 80/4.5mcg -) 2 puff IH BID [facility] Last Admin: 09/14/16 22:59 Dose: 2 puff Chlorhexidine Gluconate (Hibiclens For Decolonization -) 1 applic TP HS [facility] Last Admin: 09/14/16 21:38 Dose: Not Given Cyclobenzaprine HCl (Flexeril -) 5 mg PO BID [facility] Last Admin: 09/14/16 21:36 Dose: 5 mg Docusate Sodium (Colace -) 100 mg PO TID PRN PRN Reason: CONSTIPATION Duloxetine HCl (Cymbalta -) 60 mg PO DAILY [facility] Last Admin: 09/14/16 11:35 Dose: 60 mg Gabapentin (Neurontin -) 800 mg PO TID [facility] Last Admin: 09/15/16 06:11 Dose: 800 mg Heparin Sodium (Porcine) (Heparin -) 5,000 unit SQ BID [facility] Last Admin: 09/14/16 21:34 Dose: 5,000 unit Hydroxychloroquine Sulfate (Plaquenil -) 200 mg PO BID [facility] Last Admin: 09/14/16 22:59 Dose: 200 mg Imipenem/Cilastatin Sodium 500 (mg/ Sodium Chloride) 100 mls @ 100 mls/hr IVPB Q8H-IV [facility] Last Admin: 09/15/16 01:38 Dose: 100 mls/hr Ibuprofen (Motrin -) 600 mg PO Q12H PRN PRN Reason: PAIN Last Admin: 09/14/16 23:12 Dose: 600 mg Lactobacillus Acidophilus (Bacid -) 1 tab PO DAILY [facility] Last Admin: 09/14/16 11:34 Dose: 1 tab Lidocaine (Lidoderm Patch -) 1 patch TP DAILY [facility] Last Admin: 09/14/16 11:36 Dose: 1 patch Methylprednisolone Sodium Succinate (Solu-Medrol -) 40 mg IVPB Q8H-IV [facility] Last Admin: 09/15/16 00:59 Dose: 40 mg Metoclopramide HCl (Reglan -) 10 mg PO ACHS [facility] Last Admin: 09/15/16 06:11 Dose: 10 mg Mupirocin (Bactroban Ointment (For Decolonization) -) 1 applic NS BID [facility] Stop: 09/17/16 21:59 Last Admin: 09/14/16 21:36 Dose: Not Given Pantoprazole Sodium (Protonix -) 40 mg PO BID [facility] Last Admin: 09/14/16 21:38 Dose: 40 mg Polyethylene Glycol (Miralax (For Daily Use) -) 17 gm PO DAILY PRN PRN Reason: CONSTIPATION Ranitidine HCl (Zantac -) 150 mg PO DAILY [facility] Last Admin: 09/14/16 11:39 Dose: 150 mg - Objective Vital Signs: Vital Signs Temperature 98.8 F 09/15/16 06:45 Pulse Rate 80 09/15/16 06:45 Respiratory Rate 20 09/15/16 06:45 Blood Pressure 125/71 09/15/16 06:45 O2 Sat by Pulse Oximetry (%) 97 09/14/16 21:00 Constitutional: Yes: Thin Neck: Yes: WNL, Supple Cardiovascular: Yes: Regular Rate and Rhythm, S1, S2 Respiratory: Yes: Rales Extremities: Yes: Other (Amputations) Labs: INR, PTT INR 1.33 (0.82-1.09) H 09/13/16 05:20 Assessment/Plan Microbiology 09/12/16 14:23 Sputum - Expectorated Gram Stain - Final 09/12/16 14:23 Sputum - Expectorated Sputum Culture - Final Klebsiella Pneumoniae - Esbl 09/12/16 12:55 Blood - Peripheral Venous Blood Culture - Preliminary Pending Organism 09/12/16 12:50 Blood - Peripheral Venous Blood Culture - Preliminary NO GROWTH OBTAINED AFTER 48 HOURS, INCUBATION TO CONTINUE FOR 3 DAYS. Laboratory Tests 09/14/16 04:50 WBC 11.9 H RBC 3.61 Hgb 8.9 L Plt Count 345 Assessment ESBL pneumonia Chronic lung disease 1/4 blood cultures contaminant Scleroderma Plan Day 3 of therapy Substitiute Ertepenem for once daily dosing Anticipate total 7 days of treatment with discharge on 8th day admission Ignore blood culture pending final report Nicolasa CAVAZOS
[2016-09-15 08:39] LABS: ALBUMIN 2.3 g/dl (3.4-5.0); ALK PHOS 41 U/L (45-117); ANION GAP 9 (8-16); BILIRUBIN,TOTAL 0.4 mg/dL (0.2-1.0); CALCIUM 8.6 mg/dL (8.5-10.1); CO2 27 mmol/L (21-32); CREATININE 0.8 mg/dL (0.55-1.02); GLUCOSE,RANDOM 123 mg/dL (74-106); SGOT/AST 23 U/L (15-37); SGPT/ALT 31 U/L (12-78); TOT PROT 5.7 g/dl (6.4-8.2)
[2016-09-15] MEDS: HYDROXYCHLOROQUINE SO4 200 MG TABLET (FP) PO SCH ×2 (09:21→21:33)
[2016-09-15] MEDS: MUPIROCIN 2% TOPICAL OINTMENT FOR DECOLONIZATION NS SCH ×2 (09:21→21:32)
[2016-09-15] MEDS: ACLIDINIUM BROMIDE 400 MCG/INH AERO.POWD IH SCH (09:22)
[2016-09-15] MEDS: BUDESONIDE/FORMETEROL FUMARATE 80/4.5 mcg INHALER IH SCH ×2 (09:22→21:33)
[2016-09-15] MEDS: HEPARIN NA (PORCINE) 5,000 UNITS/ML 1ML VIAL SQ SCH ×2 (09:31→21:32)
[2016-09-15] MEDS: ASPIRIN 81 MG CHEWABLE TABLETS PO SCH (09:31)
[2016-09-15] MEDS: DULoxetine HCL 30 MG CAPSULE.DR (FP) PO SCH (09:31)
[2016-09-15] MEDS: CYCLOBENZAPRINE HCL 10 MG TABLET (FP) PO SCH ×2 (09:32→21:32)
[2016-09-15] MEDS: RANITIDINE HCL 150 MG TABLET (FP) PO SCH (09:33)
[2016-09-15] MEDS: PANTOPRAZOLE 40 MG TABLET (FP) PO SCH ×2 (09:33→21:33)
[2016-09-15] MEDS: LIDOCAINE 5% TOPICAL PATCH TP SCH (09:35)
[2016-09-15] MEDS: LACTOBACILLUS ACIDOPHILUS 1 EACH TAB (FP) PO SCH (09:49)
[2016-09-15] MEDS: ERTAPENEM SODIUM 1 GM in SODIUM CHLORIDE 50 ML IVPB SCH (10:32)
--- NOTE | 2016-09-15 10:48 | PN ---
Progress Note (short form) - Note Progress Note: PULMONARY OOB TO CHAIR APPEARS STABLE VSS/AFEBRILE SCATTERED B/L CRACKLES S1S2 BS+ NO LOWER EXT EDEMA LABS/MEDS/NOTES/IMAGING/REVIEWED Likely Acute on Chronic Hypercapneic Respiratory Failure Likely Recurrent Aspiration Pneumonia Opiate Dependent - ?Overdose Altered Mental Status Acute COPD Exacerbation Acute Kidney Injury Scleroderma/CREST Syndrome - IV antibiotics per ID - inhaled bronchodilators standing and PRN - Steroid taper - BiPAP to assist in work of breathing and hypercapnia - Caution with narcotics/sedatives - aspiration precautions - monitor urine output, creatinine - PO as tolerated - DVT prophylaxis Sandra ZAPIEN MD
[2016-09-15] MEDS ORDERED: LIDOCAINE 5% TOPICAL PATCH TP SCH (11:21)
[2016-09-15] MEDS: IBUPROFEN 600 MG TABLET (FP) PO PRN (11:22)
--- NOTE | 2016-09-15 11:28 | PN ---
Progress Note, Physician Chief Complaint: no cough or CP or SOB, no N/V ate OK; c/o back pain, asked for morphine and valium; is on flexeril, d/w pt risks of falls, to call staff if needs OOB; advised do not get OOB alone is on motrin 600 mg po bid prn, d/w pt will change to 200 mg po QID prn with food only and on PPI bid; f/u with neurology and pain mngt. - Current Medication List Current Medications: Active Medications Acetaminophen (Tylenol -) 650 mg PO Q6H PRN PRN Reason: FEVER OR PAIN Last Admin: 09/15/16 09:22 Dose: 650 mg Aclidinium Berthold (Tudorza -) 1 puff IH DAILY [facility] Last Admin: 09/15/16 09:22 Dose: 1 puff Albuterol Sulfate (Ventolin 0.083% Nebulizer Soln -) 1 amp NEB Q4H PRN PRN Reason: SHORT OF BREATH/WHEEZING Albuterol/Ipratropium (Duoneb -) 1 amp NEB QIDR [facility] Last Admin: 09/15/16 07:05 Dose: 1 amp Aspirin (Asa -) 81 mg PO DAILY [facility] Last Admin: 09/15/16 09:31 Dose: 81 mg Budesonide/Formoterol Fumarate (Symbicort 80/4.5mcg -) 2 puff IH BID [facility] Last Admin: 09/15/16 09:22 Dose: 2 puff Chlorhexidine Gluconate (Hibiclens For Decolonization -) 1 applic TP HS [facility] Last Admin: 09/14/16 21:38 Dose: Not Given Cyclobenzaprine HCl (Flexeril -) 5 mg PO BID [facility] Last Admin: 09/15/16 09:32 Dose: 5 mg Docusate Sodium (Colace -) 100 mg PO TID PRN PRN Reason: CONSTIPATION Duloxetine HCl (Cymbalta -) 60 mg PO DAILY [facility] Last Admin: 09/15/16 09:31 Dose: 60 mg Gabapentin (Neurontin -) 800 mg PO TID [facility] Last Admin: 09/15/16 06:11 Dose: 800 mg Heparin Sodium (Porcine) (Heparin -) 5,000 unit SQ BID [facility] Last Admin: 09/15/16 09:31 Dose: 5,000 unit Hydroxychloroquine Sulfate (Plaquenil -) 200 mg PO BID [facility] Last Admin: 09/15/16 09:21 Dose: 200 mg Ertapenem 1 gm/ Sodium (Chloride) 50 mls @ 100 mls/hr IVPB DAILY [facility] Last Admin: 09/15/16 10:32 Dose: 100 mls/hr Ibuprofen (Advil -) 200 mg PO Q6H PRN PRN Reason: PAIN Lactobacillus Acidophilus (Bacid -) 1 tab PO DAILY [facility] Last Admin: 09/15/16 09:49 Dose: 1 tab Lidocaine (Lidoderm Patch -) 2 patch TP DAILY [facility] Methylprednisolone Sodium Succinate (Solu-Medrol -) 40 mg IVPB Q12H [facility] Metoclopramide HCl (Reglan -) 10 mg PO ACHS [facility] Last Admin: 09/15/16 11:22 Dose: 10 mg Mupirocin (Bactroban Ointment (For Decolonization) -) 1 applic NS BID [facility] Stop: 09/17/16 21:59 Last Admin: 09/15/16 09:21 Dose: Not Given Pantoprazole Sodium (Protonix -) 40 mg PO BID [facility] Last Admin: 09/15/16 09:33 Dose: 40 mg Polyethylene Glycol (Miralax (For Daily Use) -) 17 gm PO DAILY PRN PRN Reason: CONSTIPATION Ranitidine HCl (Zantac -) 150 mg PO DAILY [facility] Last Admin: 09/15/16 09:33 Dose: 150 mg - Objective Vital Signs: Vital Signs Temperature 98.8 F 09/15/16 06:45 Pulse Rate 80 09/15/16 06:45 Respiratory Rate 20 09/15/16 06:45 Blood Pressure 125/71 09/15/16 06:45 O2 Sat by Pulse Oximetry (%) 100 09/15/16 09:00 Constitutional: Yes: No Distress, Calm Eyes: Yes: Conjunctiva Clear HENT: Yes: Atraumatic Neck: Yes: Supple Cardiovascular: Yes: Regular Rate and Rhythm Respiratory: Yes: CTA Bilaterally Gastrointestinal: Yes: Soft. No: Distention, Tenderness Genitourinary: No: CVA Tenderness - Left, CVA Tenderness - Right Musculoskeletal: No: Joint Stiffness, Joint Swelling Extremities: No: Cold, Cool Edema: No Peripheral Pulses WNL: Yes Integumentary: No: Rash, Venous Stasis Changes Neurological: Yes: WNL, Alert, Oriented ...Motor Strength: WNL Psychiatric: Yes: WNL, Alert, Oriented. No: Agitated, Suicidal Ideation Labs: CBC, BMP 09/15/16 07:05 09/15/16 07:05 INR, PTT INR 1.33 (0.82-1.09) H 09/13/16 05:20 - ....Imaging Other: Report Reviewed Assessment/Plan 51yo female with h/o COPD, scleroderma/CREST syndrome, hypothyroidism, hyperlipidemia, recurrent pneumonia attributed to aspiration, opiate dependency who presents with altered mental status and shortness of breath. Pt lethargic at arrival but woke up with narcan O2 NC prn pulmonary, neurology and ID f/u, iv steroids - taper iv antibiotics per ID neuro and pain mnt; opiates off, see above DVT, gastric, falls and aspiration PFX prognosis guarded opiates rehab d/w pt and staff
[2016-09-15] MEDS: IBUPROFEN 200 MG TABLET PO PRN ×2 (17:19→23:18)
[2016-09-15] MEDS ORDERED: PT OWN MED DRAWER 7, Y5N ONE (21:07)
[2016-09-15] MEDS: CHLORHEXIDINE GLUCONATE 4% CLEANSER FOR DECOLONIZATION TP SCH (21:33)
[2016-09-16] MEDS: ALBUTEROL SO4 2.5/IPRATROPIUM 0.5 INH SOL 3 ML VIAL.NEB. NEB SCH ×3 (00:05→11:10)
[2016-09-16] MEDS: ACETAMINOPHEN 325 MG TABLET (FP) PO PRN ×2 (02:19→08:34)
[2016-09-16] MEDS: IBUPROFEN 200 MG TABLET PO PRN ×2 (05:15→11:44)
[2016-09-16] MEDS: GABAPENTIN 400 MG CAPSULE (FP) PO SCH ×2 (05:17→13:00)
[2016-09-16] MEDS: METOCLOPRAMIDE HCL 10 MG TABLET (FP) PO SCH ×2 (06:27→11:44)
[2016-09-16 06:41] LABS: BASOPHIL 0.2 % (0-2.0); MCH 25.6 pg (25.7-33.7); MEAN CELL VOLUME 80.1 fl (80-96); MEAN PLT VOLUME 7.9 fl (7.5-11.1); NEUTROPHILS 90.1 % (42.8-82.8); PLATELET COUNT 288 K/MM3 (134-434); WHITE BLOOD COUNT 8.8 K/mm3 (4.0-10.0)
[2016-09-16 07:56] LABS: ALBUMIN 2.5 g/dl (3.4-5.0); ALK PHOS 38 U/L (45-117); ANION GAP 11 (8-16); BILIRUBIN,TOTAL 0.4 mg/dL (0.2-1.0); CALCIUM 8.3 mg/dL (8.5-10.1); CO2 29 mmol/L (21-32); CREATININE 0.9 mg/dL (0.55-1.02); GLUCOSE,RANDOM 96 mg/dL (74-106); SGOT/AST 25 U/L (15-37); SGPT/ALT 36 U/L (12-78)
--- NOTE | 2016-09-16 09:31 | PN ---
Progress Note, Physician Chief Complaint: ID Ertepenem day 4 She is back to baseline !! Wants to leave - Current Medication List Current Medications: Active Medications Acetaminophen (Tylenol -) 650 mg PO Q6H PRN PRN Reason: FEVER OR PAIN Last Admin: 09/16/16 08:34 Dose: 650 mg Aclidinium Graham (Tudorza -) 1 puff IH DAILY [facility] Last Admin: 09/15/16 09:22 Dose: 1 puff Albuterol Sulfate (Ventolin 0.083% Nebulizer Soln -) 1 amp NEB Q4H PRN PRN Reason: SHORT OF BREATH/WHEEZING Albuterol/Ipratropium (Duoneb -) 1 amp NEB QIDR [facility] Last Admin: 09/16/16 07:09 Dose: 1 amp Aspirin (Asa -) 81 mg PO DAILY [facility] Last Admin: 09/15/16 09:31 Dose: 81 mg Budesonide/Formoterol Fumarate (Symbicort 80/4.5mcg -) 2 puff IH BID [facility] Last Admin: 09/15/16 21:33 Dose: 2 puff Chlorhexidine Gluconate (Hibiclens For Decolonization -) 1 applic TP HS [facility] Last Admin: 09/15/16 21:33 Dose: Not Given Cyclobenzaprine HCl (Flexeril -) 5 mg PO BID [facility] Last Admin: 09/15/16 21:32 Dose: 5 mg Docusate Sodium (Colace -) 100 mg PO TID PRN PRN Reason: CONSTIPATION Last Admin: 09/15/16 21:34 Dose: 100 mg Duloxetine HCl (Cymbalta -) 60 mg PO DAILY [facility] Last Admin: 09/15/16 09:31 Dose: 60 mg Gabapentin (Neurontin -) 800 mg PO TID [facility] Last Admin: 09/16/16 05:17 Dose: 800 mg Heparin Sodium (Porcine) (Heparin -) 5,000 unit SQ BID [facility] Last Admin: 09/15/16 21:32 Dose: 5,000 unit Hydroxychloroquine Sulfate (Plaquenil -) 200 mg PO BID [facility] Last Admin: 09/15/16 21:33 Dose: 200 mg Ertapenem 1 gm/ Sodium (Chloride) 50 mls @ 100 mls/hr IVPB DAILY [facility] Last Admin: 09/15/16 10:32 Dose: 100 mls/hr Ibuprofen (Advil -) 200 mg PO Q6H PRN PRN Reason: PAIN Last Admin: 09/16/16 05:15 Dose: 200 mg Lactobacillus Acidophilus (Bacid -) 1 tab PO DAILY [facility] Last Admin: 09/15/16 09:49 Dose: 1 tab Lidocaine (Lidoderm Patch -) 2 patch TP DAILY [facility] Methylprednisolone Sodium Succinate (Solu-Medrol -) 40 mg IVPB Q12H [facility] Last Admin: 09/15/16 23:18 Dose: 40 mg Metoclopramide HCl (Reglan -) 10 mg PO ACHS [facility] Last Admin: 09/16/16 06:27 Dose: 10 mg Mupirocin (Bactroban Ointment (For Decolonization) -) 1 applic NS BID [facility] Stop: 09/17/16 21:59 Last Admin: 09/15/16 21:32 Dose: Not Given Pantoprazole Sodium (Protonix -) 40 mg PO BID [facility] Last Admin: 09/15/16 21:33 Dose: 40 mg Polyethylene Glycol (Miralax (For Daily Use) -) 17 gm PO DAILY PRN PRN Reason: CONSTIPATION Ranitidine HCl (Zantac -) 150 mg PO DAILY [facility] Last Admin: 09/15/16 09:33 Dose: 150 mg - Objective Vital Signs: Vital Signs Temperature 98.4 F 09/16/16 06:24 Pulse Rate 78 09/16/16 06:24 Respiratory Rate 20 09/16/16 06:24 Blood Pressure 133/79 09/16/16 06:24 O2 Sat by Pulse Oximetry (%) 100 09/15/16 09:00 Labs: CBC, BMP 09/16/16 05:35 09/16/16 05:35 INR, PTT INR 1.33 (0.82-1.09) H 09/13/16 05:20 Assessment/Plan Microbiology 09/12/16 14:23 Sputum - Expectorated Gram Stain - Final 09/12/16 14:23 Sputum - Expectorated Sputum Culture - Final Klebsiella Pneumoniae - Esbl 09/12/16 12:55 Blood - Peripheral Venous Blood Culture - Preliminary Staphylococcus Coagulase Neg Laboratory Tests 09/16/16 09/16/16 05:35 05:35 WBC 8.8 Hgb 10.3 L D Hct 32.1 L Plt Count 288 BUN 24 H Creatinine 0.9 Creat Clearance w eGFR > 60 Assessment Organism ESBL sensitive to quinolones !! Clinically sable Plan Switch to levoflox 750 for 5 days after this am dose of Ertepenem Nicolasa CAVAZOS
[2016-09-16] MEDS ORDERED: PT OWN MED DRAWER 7, Y5N ONE ×2 (09:38→09:43)
[2016-09-16] MEDS: ASPIRIN 81 MG CHEWABLE TABLETS PO SCH (09:39)
[2016-09-16] MEDS: PANTOPRAZOLE 40 MG TABLET (FP) PO SCH (09:39)
[2016-09-16] MEDS: DULoxetine HCL 30 MG CAPSULE.DR (FP) PO SCH (09:39)
[2016-09-16] MEDS: CYCLOBENZAPRINE HCL 10 MG TABLET (FP) PO SCH (09:39)
[2016-09-16] MEDS: RANITIDINE HCL 150 MG TABLET (FP) PO SCH (09:39)
[2016-09-16] MEDS: LACTOBACILLUS ACIDOPHILUS 1 EACH TAB (FP) PO SCH (09:40)
[2016-09-16] MEDS: HEPARIN NA (PORCINE) 5,000 UNITS/ML 1ML VIAL SQ SCH (09:47)
[2016-09-16] MEDS: MUPIROCIN 2% TOPICAL OINTMENT FOR DECOLONIZATION NS SCH (09:47)
[2016-09-16] MEDS: ACLIDINIUM BROMIDE 400 MCG/INH AERO.POWD IH SCH (09:48)
[2016-09-16] MEDS: BUDESONIDE/FORMETEROL FUMARATE 80/4.5 mcg INHALER IH SCH (09:48)
[2016-09-16] MEDS ORDERED: POTASSIUM CHLORIDE TABS 20 MEQ TABLET.ER (FP) PO ONE (10:03)
--- NOTE | 2016-09-16 10:17 | DS ---
Physical Examination Vital Signs: Vital Signs Temperature 98.4 F 09/16/16 06:24 Pulse Rate 78 09/16/16 06:24 Respiratory Rate 20 09/16/16 06:24 Blood Pressure 133/79 09/16/16 06:24 O2 Sat by Pulse Oximetry (%) 100 09/15/16 09:00 Findings/Remarks: feels much better OFF O2 NC does not want to wear it and wants to go home today , cleared by ID DC home after today dose ATB (d/w nurse) Pt refused home O2 as she did many times in the past, aware of possible risks and consequences (d/w pt indications and alternatives and risks of not having it ). Walks in the hallway and to the bathroom without help and without O2 and has no CP/SOB or ROONEY. Wants to have "a long talk with me" regarding her opiates, she does not feel she can stay off completely; I d/w her again risks and consequences of opiates and advised her to taper and stay off them and to f/u with neuology pain mngt and Detox Rehab outpt closely; alternative pain meds d/w pt and ordered from her pharmacy. Ate well no N/V, no pain. Pt is AxOx3 NAD afebrile off opiates able to understand and make decisions for herself. scripts done, d/w pt and staff, T time 45 min Constitutional: Yes: No Distress, Calm Eyes: Yes: Conjunctiva Clear HENT: Yes: Atraumatic Neck: Yes: Supple Cardiovascular: Yes: Regular Rate and Rhythm Respiratory: Yes: CTA Bilaterally Gastrointestinal: Yes: Soft. No: Distention, Tenderness Renal/: No: CVA Tenderness - Left, CVA Tenderness - Right Musculoskeletal: No: Joint Stiffness, Joint Swelling Extremities: No: Cold, Cool Edema: No Peripheral Pulses WNL: Yes Integumentary: No: Rash, Venous Stasis Changes Neurological: Yes: WNL, Alert, Oriented ...Motor Strength: WNL Psychiatric: Yes: WNL, Alert, Oriented. No: Agitated Labs: CBC, BMP 09/16/16 05:35 09/16/16 05:35 Discharge Summary Reason For Visit: PNA DUE TO INFECTIOUS ORGANISM,COPD Current Active Problems COPD exacerbation (Acute) Chronic back pain greater than 3 months duration (Acute) Lumbar back pain (Acute) Opioid dependence, uncomplicated (Acute) Pneumonia due to infectious organism (Acute) Procedures: Principal: admitted with aspiration PNA and fever, respiratory failure, possible opiates OD, N/V Other Procedures: IV ATB per ID; pulm ICU eval; neurology pain mngt and detox eval Hospital Course: taper opiates to off; ATB per ID; improved with above; DC home and f/u as advised. Condition: Improved - Instructions Diet, Activity, Other Instructions: f/u PCP, ID and pulmonary in 1-2 weeks try to taper and tsay off opiates, pain mngt and detox close f/u outpt flexeril prn lidoderm patch and tylenol prn falls PFX RTER if recurrent d/w pt and staff, scripts done Referrals: Eva Gonzalez [Staff Physician] - Alex Baldwin MD [Staff Physician] - Mirna Hooks MD [Staff Physician] - Hai Youngblood MD, MD [Staff Physician] - Disposition: HOME - Home Medications Comprehensive Discharge Medication List: Ambulatory Orders Duloxetine HCl [Cymbalta -] 60 mg PO DAILY #30 capsule. 03/10/15 Albuterol 0.083% Nebulizer Cinthya [Ventolin 0.083% Nebulizer Soln -] 1 amp NEB Q4H PRN #1 amp 04/11/16 Aspirin [ASA -] 81 mg PO DAILY tab.chew 04/11/16 Budesonide/Formeterol Fumarate [SYMBICORT 80/4.5mcg -] 2 puff IH BID #1 inhaler 04/11/16 Tiotropium [place] [Spiriva] 1 puff IH DAILY #1 inh 04/27/16 Docusate Sodium [Colace -] 100 mg PO TID PRN 05/27/16 Polyethylene Glycol 3350 [Miralax 119 gm Btl -] 17 gm PO DAILY PRN 05/27/16 Ranitidine [Zantac -] 150 mg PO DAILY 05/27/16 Gabapentin [Neurontin -] 800 mg PO TID capsule 05/28/16 Mupirocin Ointment [Bactroban 2% Ointment -] 1 applic TP BID applic 05/28/16 Lactobacillus Acidophilus [Bacid -] 1 each PO DAILY #30 capsule 07/20/16 Metoclopramide HCl [Reglan -] 10 mg PO ACHS tablet 07/20/16 Acetaminophen [Tylenol .Regular Strength -] 650 mg PO Q6H PRN #0 tablet Hydroxychloroquine So4 [Plaquenil -] 200 mg PO BID tablet 07/31/16 Pantoprazole Sodium [Protonix -] 40 mg PO BID tablet.ec 07/31/16 Cyclobenzaprine HCl [Flexeril -] 5 mg PO BID prn #20 tablet 09/16/16 Lactobacillus Acidophilus [Bacid -] 1 tab PO DAILY tab 09/16/16 Levofloxacin [Levaquin] 750 mg PO DAILY #5 tab 09/16/16 Lidocaine 5% Patch [Lidoderm -] 2 patch TP DAILY #60 patch 09/16/16 Mupirocin Ointment [Bactroban Ointment (For Decolonization) -] 1 applic NS BID applic 09/16/16 Prednisone 10 mg PO AM #20 tablet 09/16/16 tapering doses
--- NOTE | 2016-09-16 10:28 | PN ---
Progress Note (short form) - Note Progress Note: PULMONARY OOB TO CHAIR APPEARS STABLE VSS/AFEBRILE SCATTERED B/L CRACKLES S1S2 BS+ NO LOWER EXT EDEMA LABS/MEDS/NOTES/IMAGING/REVIEWED Likely Acute on Chronic Hypercapneic Respiratory Failure Likely Recurrent Aspiration Pneumonia Opiate Dependent - ?Overdose Altered Mental Status Acute COPD Exacerbation Acute Kidney Injury Scleroderma/CREST Syndrome - antibiotics - inhaled bronchodilators standing and PRN - Steroid taper - BiPAP to assist in work of breathing and hypercapnia - Caution with narcotics/sedatives - Agree with continuing treatment as an outpatient - Sandra ZAPIEN MD
[2016-09-16] MEDS: ERTAPENEM SODIUM 1 GM in SODIUM CHLORIDE 50 ML IVPB SCH (10:44)
[2016-09-16] MEDS: HYDROXYCHLOROQUINE SO4 200 MG TABLET (FP) PO SCH (10:44)
[2016-09-16] MEDS: methylPREDNISolone NA SUCC 40 MG/1 ML VIAL IVPB SCH (11:43)
--- NOTE | 2016-09-16 13:08 | EKG ---
Test Reason : Blood Pressure : / mmHG Vent. Rate : 097 BPM Atrial Rate : 097 BPM P-R Int : 142 ms QRS Dur : 082 ms QT Int : 388 ms P-R-T Axes : 055 058 052 degrees QTc Int : 492 ms POOR DATA QUALITY, INTERPRETATION MAY BE ADVERSELY AFFECTED sita NORMAL SINUS RHYTHM PROLONGED QT Confirmed by MD GM, LUIS ([id number]) on 09/16/2016 1:08:16 PM Referred By: Overread By: LUIS WORRELL MD
[2016-09-16 13:10] VITALS: BP 134/74; TEMP 98.1
[2016-09-16 13:58] VITALS: PULSE 86
== END 2016-09-16 14:00 | disposition home or self-care (01) | DRG 177 ==
LOC: JER 12:44 → JERBED 15:55 → JICU 09-13 → J7W 09-14 14:48
PROVIDERS: ADMIT Internal Medicine; ATTEND Internal Medicine
PROC: 5A09357 Assistance with Respiratory Ventilation, Less than 24 Consecutive Hours, Continuous Positive Airway Pressure (ICD-10-PCS; principal; 2016-09-12)
DX: J69.0 Pneumonitis due to inhalation of food and vomit (principal); J96.22 Acute and chronic respiratory failure with hypercapnia; J44.1 Chronic obstructive pulmonary disease with (acute) exacerbation; F11.20 Opioid dependence, uncomplicated; R64 Cachexia; N17.9 Acute kidney failure, unspecified; J45.901 Unspecified asthma with (acute) exacerbation; E87.1 Hypo-osmolality and hyponatremia; Z68.1 Body mass index [BMI] 19.9 or less, adult; Z87.891 Personal history of nicotine dependence; M34.1 CR(E)ST syndrome; Z88.0 Allergy status to penicillin; E03.9 Hypothyroidism, unspecified; M34.9 Systemic sclerosis, unspecified; E78.5 Hyperlipidemia, unspecified; K21.9 Gastro-esophageal reflux disease without esophagitis; D64.9 Anemia, unspecified; I73.00 Raynaud's syndrome without gangrene; M54.5 Low back pain; K27.9 Peptic ulcer, site unspecified, unspecified as acute or chronic, without hemorrhage or perforation; K22.70 Barrett's esophagus without dysplasia; K22.4 Dyskinesia of esophagus
CPT/HCPCS: 36415; 36600; 70450-TC; 71010-TC; 80048; 80053; 81003; 81015; 82728; 82803; 83540; 83605; 83735; 84100; 85025; 85027; 85610; 85730; 87040; 87070; 87086; 87186; 87205; 87804; 87899; 93005; 93010; 94640; 94660; 99285-25; G0479; J1644

== ENCOUNTER 2016-09-27 13:46 | Inpatient (IN) | payer OTHER ==
[2016-09-27 13:56] VITALS: BMI 18.8
[2016-09-27 15:28] LABS: ALK PHOS 38 U/L (45-117); ANION GAP 11 (8-16); BILIRUBIN,TOTAL 0.4 mg/dL (0.2-1.0); CALCIUM 8.6 mg/dL (8.5-10.1); CO2 27 mmol/L (21-32); CREATININE 0.9 mg/dL (0.55-1.02); GLUCOSE,RANDOM 110 mg/dL (74-106); SGOT/AST 15 U/L (15-37); SGPT/ALT 17 U/L (12-78); TOT PROT 6.2 g/dl (6.4-8.2)
[2016-09-27 15:55] LABS: BASOPHIL 0.5 % (0-2.0); EOSINOPHIL 2.4 % (0-4.5); MCH 24.6 pg (25.7-33.7); MCHC 29.6 g/dl (32.0-36.0); MEAN CELL VOLUME 83.2 fl (80-96); MEAN PLT VOLUME 8.5 fl (7.5-11.1); NEUTROPHILS 84.3 % (42.8-82.8); PLATELET COUNT 290 K/MM3 (134-434); RDW 22.5 % (11.6-15.6); WHITE BLOOD COUNT 15.7 K/mm3 (4.0-10.0)
[2016-09-27] MEDS ORDERED: VANCOMYCIN 1,000 MG in DEXTROSE 5%-WATER - 250 ML IVPB ONE (16:15)
--- NOTE | 2016-09-27 16:17 | PDOC ---
History of Present Illness - General Chief Complaint: Edema Stated Complaint: BOTH LEGS/FEET SWOLLEN Time Seen by Provider: 09/27/16 14:46 History Source: Patient Exam Limitations: No Limitations - History of Present Illness Initial Comments: 09/27/16 16:58 51-year-old female with history of scleroderma and recurrent lower extremity cellulitis presents with worsening redness and swelling to both legs over the past 2 days. Patient states was placed on Levaquin yesterday by Dr. Sherwood but today called the physician states symptoms are worse including the redness and swelling. Patient denies fever, chills, calf pain, shortness of breath, or difficulty ambulating. Timing/Duration: getting worse Severity: moderate Associated Symptoms: reports: denies symptoms Past History - Past Medical History Allergies/Adverse Reactions: Allergies Allergy/AdvReac Type Severity Reaction Status Date / Time Penicillins Allergy Severe Hives Verified 09/12/16 12:56 tomato AdvReac Uncoded 09/13/16 18:12 Home Medications: Ambulatory Orders Duloxetine HCl [Cymbalta -] 60 mg PO DAILY #30 capsule. 03/10/15 Albuterol 0.083% Nebulizer Cinthya [Ventolin 0.083% Nebulizer Soln -] 1 amp NEB Q4H PRN #1 amp 04/11/16 Aspirin [ASA -] 81 mg PO DAILY tab.chew 04/11/16 Budesonide/Formeterol Fumarate [SYMBICORT 80/4.5mcg -] 2 puff IH BID #1 inhaler 04/11/16 Tiotropium [place] [Spiriva] 1 puff IH DAILY #1 inh 04/27/16 Docusate Sodium [Colace -] 100 mg PO TID PRN 05/27/16 Polyethylene Glycol 3350 [Miralax 119 gm Btl -] 17 gm PO DAILY PRN 05/27/16 Ranitidine [Zantac -] 150 mg PO DAILY 05/27/16 Gabapentin [Neurontin -] 800 mg PO TID capsule 05/28/16 Mupirocin Ointment [Bactroban 2% Ointment -] 1 applic TP BID applic 05/28/16 Aclidinium [place] [Tudorza -] 1 puff IH DAILY inhaler 07/20/16 Lactobacillus Acidophilus [Bacid -] 1 each PO DAILY #30 capsule 07/20/16 Metoclopramide HCl [Reglan -] 10 mg PO ACHS tablet 07/20/16 Acetaminophen [Tylenol .Regular Strength -] 650 mg PO Q6H PRN #0 tablet Hydroxychloroquine So4 [Plaquenil -] 200 mg PO BID tablet 07/31/16 Pantoprazole Sodium [Protonix -] 40 mg PO BID tablet.ec 07/31/16 Cyclobenzaprine HCl [Flexeril -] 5 mg PO BID PRN #20 tablet 09/16/16 Lactobacillus Acidophilus [Bacid -] 1 tab PO DAILY tab 09/16/16 Levofloxacin [Levaquin] 750 mg PO DAILY #5 tab 09/16/16 Lidocaine 5% Patch [Lidoderm -] 2 patch TP DAILY #60 patch 09/16/16 Mupirocin Ointment [Bactroban Ointment (For Decolonization) -] 1 applic NS BID applic 09/16/16 Prednisone 10 mg PO AM #20 tablet 09/16/16 Anemia: Yes Asthma: Yes Cancer: No 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, 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) CVA: No COPD: Yes CHF: No Dementia: No Diabetes: No GI Disorders: Yes (REFLUX) Disorders: No HTN: No Hypercholesterolemia: Yes Liver Disease: No Seizures: No Thyroid Disease: Yes (HYPO.) - Surgical History Abdominal Surgery: Yes Appendectomy: Yes Cardiac Surgery: No Cholecystectomy: No Lung Surgery: No Neurologic Surgery: Yes (LS/RODS &BONE FUSIONS) Orthopedic Surgery: Yes (multiple back sx, hand sx,b/o hip) - Immunization History Immunization Up to Date: Yes - Psycho/Social/Smoking Cessation Hx Anxiety: No Suicidal Ideation: No Smoking Status: No Smoking History: Former smoker Have you smoked in the past 12 months: Yes Number of Cigarettes Smoked Daily: 10 If you are a former smoker, when did you quit?: 2016 - 4 months ago Information on smoking cessation initiated: No 'Breaking Loose' booklet given: 09/12/16 Hx Alcohol Use: No Drug/Substance Use Hx: No Substance Use Type: None Hx Substance Use Treatment: No Patient Lives Alone: No Lives with/in: spouse/SO Review of Systems - Review of Systems Able to Perform ROS?: Yes Constitutional: No: Symptoms Reported HEENTM: No: Symptoms Reported Respiratory: No: Symptoms reported Cardiac (ROS): No: Symptoms Reported ABD/GI: No: Symptoms Reported : No: Symptoms Reported Musculoskeletal: No: Symptoms Reported Integumentary: Yes: Erythema, Other (edema) Neurological: No: Symptoms reported Endocrine: No: Symptoms Reported Hematologic/Lymphatic: No: Symptoms Reported *Physical Exam - Vital Signs Last Vital Signs Temp Pulse Resp BP Pulse Ox 98.3 F 98 H 20 81/51 94 L 09/27/16 13:49 09/27/16 13:49 09/27/16 13:49 09/27/16 13:49 09/27/16 13:49 - Physical Exam General Appearance: Yes: Nourished, Apparent Distress HEENT: positive: MICHAEL. negative: Pale Conjunctivae Respiratory/Chest: positive: Lungs Clear, Normal Breath Sounds. negative: Respiratory Distress, Accessory Muscle Use Cardiovascular: positive: Regular Rhythm, Regular Rate. negative: Murmur Vascular Pulses: Dorsalis-Pedis (R): 2+, Doralis-Pedis (L): 2+ Gastrointestinal/Abdominal: positive: Soft. negative: Tenderness Extremity: positive: Normal Capillary Refill, Normal Range of Motion, Pedal Edema (2+ pitting bilateral), Erythema (extending to the mid skinner bilateral with increased warmth to both ankle region). negative: Tender Integumentary: positive: Normal Color, Moist Neurologic: positive: Motor Strength 5/5 (ambulatory) Heart Score/ECG Review - ECG Intrepretation Rhythm: Regular Rhythm (rate 95. NSR. No st elevation or depression noted) ED Treatment Course - LABORATORY CBC & Chemistry Diagram: 09/27/16 14:37 09/27/16 14:37 - ADDITIONAL ORDERS Additional order review: Laboratory Results 09/27/16 09/27/16 14:37 14:37 Sodium 139 Potassium 3.7 Chloride 101 Carbon Dioxide 27 Anion Gap 11 BUN 26 H D Creatinine 0.9 D Creat Clearance w eGFR > 60 Random Glucose 110 H D Lactic Acid 1.607 Calcium 8.6 Total Bilirubin 0.4 D AST 15 ALT 17 Alkaline Phosphatase 38 L Total Protein 6.2 L Albumin 3.0 L 09/27/16 14:37 RBC 3.76 MCV 83.2 MCHC 29.6 L RDW 22.5 H MPV 8.5 Neutrophils % 84.3 H Lymphocytes % 5.9 L Monocytes % 6.9 D Eosinophils % 2.4 D Basophils % 0.5 - RADIOLOGY Radiology Studies Ordered: Category Date Time Status CHEST - PA [RAD] Stat Radiology 09/27/16 14:47 Taken DUPLEX VASCUL US-2LEGS [US] Stat Ultrasound 09/27/16 14:47 Completed Medical Decision Making - Medical Decision Making 09/27/16 16:01 Patient with lower extremity edema and redness including pressure-like pain to the feet. Patient with history of scleroderma and cellulitis. Patient be ruled out for DVT septic workup initiated. Will consult Dr. Kaela funez 09/27/16 17:02 Laboratory Tests 09/27/16 09/27/16 14:37 14:37 WBC 15.7 H Hgb 9.2 L D Hct 31.3 L Neutrophils % 84.3 H Sodium 139 Potassium 3.7 Chloride 101 Carbon Dioxide 27 Anion Gap 11 BUN 26 H D Random Glucose 110 H D Calcium 8.6 AST 15 ALT 17 DVT study negative. patient ordered for vancomycin since patient's blood culture was sensitive to vancomycin (staph hominis) Case discussed with Dr. Gonzalez will admit to [facility] inpatient *DC/Admit/Observation/Transfer Diagnosis at time of Disposition: Cellulitis of both lower extremities - Discharge Dispostion Admit: Yes - Referrals Referrals: Eva Gonzalez [Primary Care Provider] -
[2016-09-27] MEDS ORDERED: VANCOMYCIN 1 GRAM (PRE-DOCKED) 250 ML IVPB ONE (16:24)
--- NOTE | 2016-09-27 16:36 | EKG ---
Test Reason : Blood Pressure : / mmHG Vent. Rate : 095 BPM Atrial Rate : 095 BPM P-R Int : 148 ms QRS Dur : 078 ms QT Int : 368 ms P-R-T Axes : 058 054 027 degrees QTc Int : 462 ms NORMAL SINUS RHYTHM POSSIBLE LEFT ATRIAL ENLARGEMENT BORDERLINE ECG WHEN COMPARED WITH ECG OF 12-SEP-2016 13:37, NO SIGNIFICANT CHANGE WAS FOUND Confirmed by OSMANY FRENCH MD ([id number]) on 09/27/2016 4:36:00 PM Referred By: Confirmed By:OSMANY FRENCH MD
[2016-09-27 16:47] LABS: HYPOCHROMIA 1+; PLATELET COMMENT2 NO CLOTTING DETECTED; PLATELET ESTIMATE ADEQUATE (NORMAL); POLYCHROMASIA FEW
[2016-09-27 16:48] LABS: ANISOCYTOSIS 3+; TARGET CELLS FEW
[2016-09-27 19:29] LABS: URINE APPEARANCE CLEAR; URINE BILIRUBIN NEGATIVE (NEGATIVE); URINE BLOOD NEGATIVE (NEGATIVE); URINE COLOR YELLOW; URINE GLUCOSE (UA) NEGATIVE (NEGATIVE); URINE KETONE NEGATIVE (NEGATIVE); URINE NITRITE NEGATIVE (NEGATIVE); URINE PROTEIN NEGATIVE (NEGATIVE); URINE UROBILINOGEN NEGATIVE E.U./dl (0.2-1.0)
[2016-09-27] MEDS ORDERED: ACETAMINOPHEN 325 MG TABLET (FP) PO PRN (19:32)
[2016-09-27] MEDS ORDERED: POLYETHYLENE GLYCOL 3350 119 GM BTL PO PRN (19:32)
[2016-09-27] MEDS ORDERED: ALBUTEROL SO4 0.083% IH SOL 2.5 MG/3 ML VIAL.NEB. NEB PRN (19:32)
--- NOTE | 2016-09-27 19:36 | HP ---
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 no N/V/CP/Cough or fever. 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 Normal coronaries on cardiac cath and EF 65% with mild AI, trace MR and TR on echo @ [facility] [place] 03/31) Pulmonary: Yes: Asthma, COPD, Pneumonia, Other (lung mass of undetermined etiology) Gastrointestinal: Yes: Constipation, Diverticulitis, Diverticulosis (small bowel diverticular perforation, scleroderma affecting the esophagus, Bonner's esophagus, Schatzki ring,GAVE syndrome, antral ulcer, gastroparesis related to scleroderma), GERD (with long segment Bonner's esophagus and patent Schatzki ring), Peptic Ulcer Disease (antral ulcer ), Other (Bonner's esophagus, GERD, Schatzki ring, perforation of small bowel diverticulum, antral ulcer, scleroderma causing esophageal dysmotility and gastroparesis) Renal/: Yes: Renal Failure Heme/Onc: Yes: Anemia Infectious Disease: Yes: MRSA (bursitis) Psych: Yes: Addictions (marijuana,tobacco and prescription narcotics) Musculoskeletal: Yes: Chronic low back pain, Other (has spinal stimulator) Rheumatology: Yes: Vasculitis, Other (Scleroderma, Raynauds and CREST syndrome) Endocrine: Yes: Hypothyroidism, Other (Malnutrition, osteoporosis) Dermatology: Yes: Cellulitis - Past Surgical History Past Surgical History: Yes: Appendectomy, Colonoscopy, Upper Endoscopy - Smoking History Smoking history: Former smoker Have you smoked in the past 12 months: Yes Aproximately how many cigarettes per day: 10 If you are a former smoker, when did you quit?: 2016 - 4 months ago - Alcohol/Substance Use Hx Alcohol Use: No History of Substance Use: reports: Marijuana (quit 1 month ago), Prescription - Social History Usual Living Arrangement: Yes: With Parent ADL: Independent Occupation: disabled History of Recent Travel: No Home Medications - Allergies Allergies/Adverse Reactions: Allergies Allergy/AdvReac Type Severity Reaction Status Date / Time Penicillins Allergy Severe Hives Verified 09/12/16 12:56 tomato AdvReac Uncoded 09/13/16 18:12 - Home Medications Home Medications: Ambulatory Orders Duloxetine HCl [Cymbalta -] 60 mg PO DAILY #30 capsule. 03/10/15 Albuterol 0.083% Nebulizer Cinthya [Ventolin 0.083% Nebulizer Soln -] 1 amp NEB Q4H PRN #1 amp 04/11/16 Aspirin [ASA -] 81 mg PO DAILY tab.chew 04/11/16 Budesonide/Formeterol Fumarate [SYMBICORT 80/4.5mcg -] 2 puff IH BID #1 inhaler 04/11/16 Tiotropium [place] [Spiriva] 1 puff IH DAILY #1 inh 04/27/16 Docusate Sodium [Colace -] 100 mg PO TID PRN 05/27/16 Polyethylene Glycol 3350 [Miralax 119 gm Btl -] 17 gm PO DAILY PRN 05/27/16 Ranitidine [Zantac -] 150 mg PO DAILY 05/27/16 Gabapentin [Neurontin -] 800 mg PO TID capsule 05/28/16 Mupirocin Ointment [Bactroban 2% Ointment -] 1 applic TP BID applic 05/28/16 Aclidinium [place] [Tudorza -] 1 puff IH DAILY inhaler 07/20/16 Lactobacillus Acidophilus [Bacid -] 1 each PO DAILY #30 capsule 07/20/16 Metoclopramide HCl [Reglan -] 10 mg PO ACHS tablet 07/20/16 Acetaminophen [Tylenol .Regular Strength -] 650 mg PO Q6H PRN #0 tablet Hydroxychloroquine So4 [Plaquenil -] 200 mg PO BID tablet 07/31/16 Pantoprazole Sodium [Protonix -] 40 mg PO BID tablet.ec 07/31/16 Cyclobenzaprine HCl [Flexeril -] 5 mg PO BID PRN #20 tablet 09/16/16 Lactobacillus Acidophilus [Bacid -] 1 tab PO DAILY tab 09/16/16 Levofloxacin [Levaquin] 750 mg PO DAILY #5 tab 09/16/16 Lidocaine 5% Patch [Lidoderm -] 2 patch TP DAILY #60 patch 09/16/16 Mupirocin Ointment [Bactroban Ointment (For Decolonization) -] 1 applic NS BID applic 09/16/16 Prednisone 10 mg PO AM #20 tablet 09/16/16 Family Disease History - Family Disease History Family Disease History: Diabetes: Father (HCV), Heart Disease: Father, Mother, Other: Father, Brother (HIV) Review of Systems - Review of Systems Constitutional: denies: Chills, Fever Eyes: denies: Blind Spots, Blurred Vision Cardiovascular: denies: Chest Pain, Shortness of Breath Respiratory: denies: Cough, SOB Gastrointestinal: denies: Abdominal Pain, Bloating, Constipation, Diarrhea, Vomiting Genitourinary: denies: Dysuria, Flank Pain Musculoskeletal: reports: Back Pain Neurological: denies: Change in LOC, Change in Speech, Confusion, Seizure, Syncope Hematology/Lymphatic: denies: Easily Bruised, Excessive Bleeding Psychiatric: denies: Altered Sleep Pattern, Anxiety, Depression Physical Examination Vital Signs: Vital Signs Temperature 98.3 F 09/27/16 17:57 Pulse Rate 89 09/27/16 17:57 Respiratory Rate 20 09/27/16 17:57 Blood Pressure 100/65 09/27/16 17:57 O2 Sat by Pulse Oximetry (%) 100 09/27/16 17:57 Constitutional: Yes: No Distress Eyes: Yes: Conjunctiva Clear HENT: Yes: Atraumatic Neck: Yes: Supple Cardiovascular: Yes: Regular Rate and Rhythm Respiratory: Yes: CTA Bilaterally Gastrointestinal: Yes: Soft. No: Distention, Tenderness Renal/: No: CVA Tenderness - Left, CVA Tenderness - Right Musculoskeletal: No: Joint Stiffness, Joint Swelling Extremities: Yes: Erythema (both feet and edema), Other (some fingers from hands amputated in the past) Edema: Yes (both feet) Peripheral Pulses WNL: Yes Integumentary: Yes: Rash, Venous Stasis Changes Neurological: Yes: WNL, Alert, Oriented ...Motor Strength: WNL Psychiatric: Yes: WNL, Alert, Oriented. No: Agitated, Suicidal Ideation Imaging - Results Chest X-ray: Report Reviewed Other: Report Reviewed Assessment/Plan 51 YOF scleroderma, LBP, opaites dep, gastroparesis, recurrent legs cellulitis, also h/o bursitis, smoker admitted with recurrent legs cellulitis IV ATB per ID advised stopped smoking, stopped opiates, stopped all illega; substance abuse falls PFX rheum f/u at [facility] [place]
[2016-09-27 19:45] LABS: URINE LEUK ESTERASE TRACE (NEGATIVE)
[2016-09-27 19:47] LABS: URINE HYALINE CAST 1 /lpf; URINE MUCUS RARE; URINE RBC 3 /hpf (0-3); URINE WBC 4 /hpf (3-5)
[2016-09-27] MEDS ORDERED: METOCLOPRAMIDE HCL 10 MG TABLET (FP) PO ONE (22:10)
[2016-09-27] MEDS ORDERED: PANTOPRAZOLE 40 MG TABLET (FP) ONE (22:10)
[2016-09-27] MEDS ORDERED: HEPARIN NA (PORCINE) 5,000 UNITS/ML 1ML VIAL ONE (22:10)
[2016-09-27] MEDS: HEPARIN NA (PORCINE) 5,000 UNITS/ML 1ML VIAL SQ SCH (22:14)
[2016-09-27] MEDS: METOCLOPRAMIDE HCL 10 MG TABLET (FP) PO SCH (22:14)
[2016-09-27] MEDS: PANTOPRAZOLE 40 MG TABLET (FP) PO SCH (22:14)
[2016-09-27] MEDS: GABAPENTIN 400 MG CAPSULE (FP) PO SCH (23:35)
[2016-09-27] MEDS: HYDROXYCHLOROQUINE SO4 200 MG TABLET (FP) PO SCH (23:36)
[2016-09-27] MEDS: BUDESONIDE/FORMETEROL FUMARATE 80/4.5 mcg INHALER IH SCH (23:36)
[2016-09-28] MEDS: METOCLOPRAMIDE HCL 10 MG TABLET (FP) PO SCH ×4 (06:18→22:23)
[2016-09-28] MEDS: GABAPENTIN 400 MG CAPSULE (FP) PO SCH ×3 (06:18→22:23)
[2016-09-28] MEDS ORDERED: PT OWN MED DRAWER 7, Y5N ONE ×3 (07:00→22:17)
[2016-09-28 07:14] LABS: BASOPHIL 0.5 % (0-2.0); EOSINOPHIL 4.8 % (0-4.5); MCH 26.2 pg (25.7-33.7); MEAN CELL VOLUME 81.9 fl (80-96); MEAN PLT VOLUME 7.9 fl (7.5-11.1); PLATELET COUNT 246 K/MM3 (134-434); RDW 21.6 % (11.6-15.6)
[2016-09-28 07:33] LABS: ALBUMIN 2.6 g/dl (3.4-5.0); ANION GAP 9 (8-16); BILIRUBIN,TOTAL 0.3 mg/dL (0.2-1.0); CALCIUM 8.2 mg/dL (8.5-10.1); CO2 28 mmol/L (21-32); CREATININE 0.8 mg/dL (0.55-1.02); GLUCOSE,RANDOM 113 mg/dL (74-106); SGOT/AST 14 U/L (15-37); SGPT/ALT 17 U/L (12-78)
[2016-09-28 07:34] LABS: ALK PHOS 38 U/L (45-117); TOT PROT 5.7 g/dl (6.4-8.2)
[2016-09-28] MEDS: PANTOPRAZOLE 40 MG TABLET (FP) PO SCH ×2 (09:38→22:23)
[2016-09-28] MEDS: LACTOBACILLUS ACIDOPHILUS 1 EACH TAB (FP) PO SCH (09:38)
[2016-09-28] MEDS: HYDROXYCHLOROQUINE SO4 200 MG TABLET (FP) PO SCH ×2 (09:38→22:23)
[2016-09-28] MEDS: HEPARIN NA (PORCINE) 5,000 UNITS/ML 1ML VIAL SQ SCH ×2 (09:38→22:22)
[2016-09-28] MEDS: ASPIRIN 81 MG CHEWABLE TABLETS PO SCH (09:38)
[2016-09-28] MEDS: RANITIDINE HCL 150 MG TABLET (FP) PO SCH (09:38)
[2016-09-28] MEDS: DULoxetine HCL 30 MG CAPSULE.DR (FP) PO SCH (09:38)
[2016-09-28] MEDS: LIDOCAINE 5% TOPICAL PATCH TP SCH (09:39)
[2016-09-28] MEDS: ACLIDINIUM BROMIDE 400 MCG/INH AERO.POWD IH SCH ×2 (09:39→22:23)
[2016-09-28] MEDS: BUDESONIDE/FORMETEROL FUMARATE 80/4.5 mcg INHALER IH SCH ×2 (09:46→22:24)
--- NOTE | 2016-09-28 09:56 | PN ---
Progress Note, Physician History of Present Illness: No fever, chills, SOB, CP, dizziness, lightheadedness, abd pain, diarrhea. Legs are feeling better - Current Medication List Current Medications: Active Medications Acetaminophen (Tylenol -) 650 mg PO Q6H PRN PRN Reason: FEVER OR PAIN Last Admin: 09/27/16 23:37 Dose: 650 mg Aclidinium [place] (Tudorza -) 1 puff IH BID [facility] Last Admin: 09/28/16 09:39 Dose: 1 puff Albuterol Sulfate (Ventolin 0.083% Nebulizer Soln -) 1 amp NEB Q4H PRN PRN Reason: SHORT OF BREATH/WHEEZING Aspirin (Asa -) 81 mg PO DAILY [facility] Last Admin: 09/28/16 09:38 Dose: 81 mg Budesonide/Formoterol Fumarate (Symbicort 80/4.5mcg -) 2 puff IH BID [facility] Last Admin: 09/28/16 09:46 Dose: 2 puff Cyclobenzaprine HCl (Flexeril -) 5 mg PO BID PRN PRN Reason: BACK PAIN Docusate Sodium (Colace -) 100 mg PO TID PRN PRN Reason: CONSTIPATION Duloxetine HCl (Cymbalta -) 60 mg PO DAILY [facility] Last Admin: 09/28/16 09:38 Dose: 60 mg Gabapentin (Neurontin -) 800 mg PO TID [facility] Last Admin: 09/28/16 06:18 Dose: 800 mg Heparin Sodium (Porcine) (Heparin -) 5,000 unit SQ BID [facility] Last Admin: 09/28/16 09:38 Dose: 5,000 unit Hydroxychloroquine Sulfate (Plaquenil -) 200 mg PO BID [facility] Last Admin: 09/28/16 09:38 Dose: 200 mg Vancomycin HCl 1,000 mg/ (Dextrose) 250 mls @ 250 mls/hr IVPB DAILY [facility] Lactobacillus Acidophilus (Bacid -) 1 tab PO DAILY [facility] Last Admin: 09/28/16 09:38 Dose: 1 tab Lidocaine (Lidoderm Patch -) 2 patch TP DAILY [facility] Last Admin: 09/28/16 09:39 Dose: 2 patch Metoclopramide HCl (Reglan -) 10 mg PO ACHS [facility] Last Admin: 09/28/16 06:18 Dose: 10 mg Pantoprazole Sodium (Protonix -) 40 mg PO BID [facility] Last Admin: 09/28/16 09:38 Dose: 40 mg Polyethylene Glycol (Miralax (For Daily Use) -) 17 gm PO DAILY PRN PRN Reason: CONSTIPATION Ranitidine HCl (Zantac -) 150 mg PO DAILY [facility] Last Admin: 09/28/16 09:38 Dose: 150 mg Vancomycin HCl (Vancomycin (Pre-Docked)) 1,000 mg IVPB ONCE ONE Stop: 09/28/16 10:01 Last Admin: 09/28/16 09:39 Dose: 1,000 mg - Objective Vital Signs: Vital Signs Temperature 98.3 F 09/28/16 09:53 Pulse Rate 87 09/28/16 09:53 Respiratory Rate 20 09/28/16 09:53 Blood Pressure 70/45 09/28/16 09:53 O2 Sat by Pulse Oximetry (%) 92 L 09/27/16 22:58 Constitutional: Yes: No Distress, Calm Cardiovascular: Yes: Regular Rate and Rhythm, S1, S2 Respiratory: Yes: Regular, Rhonchi Gastrointestinal: Yes: Normal Bowel Sounds, Soft. No: Tenderness Edema: LLE: 1+, RLE: 1+ Integumentary: Yes: Rash (in both LE, L >> R) Neurological: Yes: Alert, Oriented Labs: CBC, BMP 09/28/16 06:00 09/28/16 06:00 Problem List - Problems (1) Cellulitis of both lower extremities Assessment/Plan: on IV Vanco ID consult Code(s): L03.115 - CELLULITIS OF RIGHT LOWER LIMB L03.116 - CELLULITIS OF LEFT LOWER LIMB (2) Anemia Assessment/Plan: chronic Code(s): D64.9 - ANEMIA, UNSPECIFIED Qualifiers: Anemia type: iron deficiency Iron deficiency anemia type: unspecified iron deficiency Qualified Code(s): D50.9 - Iron deficiency anemia, unspecified (3) Scleroderma progressive Code(s): M34.0 - PROGRESSIVE SYSTEMIC SCLEROSIS (4) Chronic low back pain Assessment/Plan: on pain medicatin- trying to tapering. Code(s): M54.5 - LOW BACK PAIN G89.29 - OTHER CHRONIC PAIN Assessment/Plan AM labs
[2016-09-28] MEDS ORDERED: VANCOMYCIN 1 GRAM (PRE-DOCKED) 1,000 MG/250 ML BAG IVPB ONE (10:00)
[2016-09-28] MEDS ORDERED: VANCOMYCIN 1,000 MG in DEXTROSE 5%-WATER - 250 ML IVPB SCH (10:00)
--- NOTE | 2016-09-28 11:24 | PN ---
Progress Note (short form) - Note Progress Note: ID Consult dictated Cellulitis v. possible vasculitis LE bilaterally leukocytosis, possible sepsis Hx MRSA PCN allergy Await blood c/s Empiric vancomycin/ ceftriaxone Elevation
[2016-09-28] MEDS: VANCOMYCIN 1 GRAM (PRE-DOCKED) 250 ML IVPB SCH ×2 (11:29→22:42)
--- NOTE | 2016-09-28 12:24 | CONS ---
DATE OF CONSULTATION: DATE OF DICTATION: 09/28/2016 HISTORY OF PRESENT ILLNESS: This is a 51-year-old female with a history of chronic interstitial lung disease, scleroderma, CREST syndrome, evaluated for bilateral lower extremity cellulitis. The patient has had multiple recent hospital admissions for acute exacerbation of her chronic lung disease as well as pneumonia. She was treated for pneumonia on 2 occasions last month. She was discharged on September 16 after completing a course of vancomycin and imipenem. She now returns with bilateral lower extremity pain, swelling, and erythema. She reports 2 days prior to admission developing onset of bilateral lower extremity pain, swelling, and erythema. She reports that her toes were cyanotic. She presented to the emergency room where Doppler examination was performed and was negative for DVT. She was admitted with a diagnosis of possible cellulitis. She received a dose of vancomycin. Prior to admission, she had been prescribed Levaquin with no significant improvement. She denies any associated fever or chills. She denies any traumatic injury. No insect or animal bites or scratches. She reports having a history of MRSA infection of an elbow at another institution. She has no documented history of MRSA or any wound culture at [facility]. PAST MEDICAL HISTORY: Positive for connective tissue disorder, CREST syndrome, chronic interstitial lung disease, history of recurrent pneumonia, ESBL colonization of the respiratory tract, gastroesophageal reflux, hypothyroidism. ALLERGIES: To PENICILLIN. Patient has tolerated cephalosporins and carbapenem in the past. MEDICATIONS: Include Symbicort, Tylenol, heparin, Neurontin, Cymbalta, Plaquenil, Colace, Flexeril, Zantac, aspirin, Reglan, Protonix. PAST SURGICAL HISTORY: Status post appendectomy and spinal surgery including fusion and hardware. SOCIAL HISTORY: She lives at home. She has had multiple recent hospital admissions. She is a former smoker. She denies history of alcohol abuse or HIV risk factor. SYSTEMS REVIEW: Neurologic: No loss of consciousness, seizure activity, or focal weakness. Cardiac: Negative for chest pain or palpitations. Respiratory: As per HPI. Gastrointestinal: Positive for gastroesophageal reflux. Genitourinary: Negative for urinary tract infection. LABORATORY DATA: White count on admission 15, presently 7.0, hematocrit 28.2, platelet count 246. BUN 20, creatinine 0.8. Doppler examination negative for DVT of the lower extremities Chest x-ray with chronic interstitial lung disease. Urinalysis 4 white cells. PHYSICAL EXAMINATION: General: She is awake and alert. She is cachectic, in no acute distress, not acutely toxic-appearing. Her breathing is non-labored. Vital signs: Temperature 98.3, blood pressure 71/45, pulse 80 and regular, respirations 20 per minute. HEENT: Sclerae anicteric. Heart: Heart sounds S1, S2. Lungs: Bilateral rhonchi. No wheezing or rales. Abdomen: Soft. No tenderness elicited. No mass, rebound, or rigidity. Extremities: Bilateral lower extremity edema 2+. There is erythema involving both lower extremities, left greater than right, from below the knee to the foot, that is, the areas are tender to touch, slightly warm. There is no crepitus or fluctuance, no lymphangitic streaking, no open wounds noted. IMPRESSION: 1. Bilateral lower extremity cellulitis versus possible vasculitis. 2. Leukocytosis, possible sepsis secondary to skin infection. 3. History of methicillin-resistant staphylococcus aureus, soft tissue infection. 4. PENICILLIN allergy. Blood cultures have been obtained. Will empirically treat with vancomycin and ceftriaxone, obtain C-reactive protein. Would consider rheumatology evaluation for possible steroid use, elevation, analgesics. Will follow. Thank you for the kind referral. SHELBY FRANK M.D. [id number]
[2016-09-28] MEDS: CEFTRIAXONE 50 ML IVPB SCH (13:15)
[2016-09-28] MEDS: oxyCODONE HCL 40 MG SUSTAINED ACTING TABLET PO SCH ×2 (13:15→22:24)
[2016-09-29 03:31] LABS: URINE MARIJUANA THC NEGATIVE ng/ml (CUTOFF=50)
[2016-09-29] MEDS: METOCLOPRAMIDE HCL 10 MG TABLET (FP) PO SCH ×4 (06:33→22:13)
[2016-09-29] MEDS: GABAPENTIN 400 MG CAPSULE (FP) PO SCH ×3 (06:33→21:58)
[2016-09-29 07:36] LABS: BASOPHIL 0.9 % (0-2.0); EOSINOPHIL 4.1 % (0-4.5); MCH 25.8 pg (25.7-33.7); MCHC 31.6 g/dl (32.0-36.0); MEAN CELL VOLUME 81.7 fl (80-96); MEAN PLT VOLUME 8.5 fl (7.5-11.1); NEUTROPHILS 63.5 % (42.8-82.8); PLATELET COUNT 305 K/MM3 (134-434); RDW 21.8 % (11.6-15.6); WHITE BLOOD COUNT 6.8 K/mm3 (4.0-10.0)
[2016-09-29] MEDS ORDERED: PT OWN MED DRAWER 7, Y5N ONE ×2 (09:47→21:51)
[2016-09-29] MEDS: CEFTRIAXONE 50 ML IVPB SCH (09:50)
[2016-09-29] MEDS: LIDOCAINE 5% TOPICAL PATCH TP SCH (09:52)
[2016-09-29] MEDS: LACTOBACILLUS ACIDOPHILUS 1 EACH TAB (FP) PO SCH (09:54)
[2016-09-29] MEDS: oxyCODONE HCL 40 MG SUSTAINED ACTING TABLET PO SCH ×2 (09:54→21:57)
[2016-09-29] MEDS: DULoxetine HCL 30 MG CAPSULE.DR (FP) PO SCH (09:54)
[2016-09-29] MEDS: ASPIRIN 81 MG CHEWABLE TABLETS PO SCH (09:54)
[2016-09-29] MEDS: RANITIDINE HCL 150 MG TABLET (FP) PO SCH (09:55)
[2016-09-29] MEDS: CYCLOBENZAPRINE HCL 10 MG TABLET (FP) PO PRN (09:55)
[2016-09-29] MEDS: DOCUSATE SODIUM 100 MG CAPSULE (FP) PO PRN (09:55)
[2016-09-29] MEDS: BUDESONIDE/FORMETEROL FUMARATE 80/4.5 mcg INHALER IH SCH ×2 (09:56→21:58)
[2016-09-29] MEDS: HEPARIN NA (PORCINE) 5,000 UNITS/ML 1ML VIAL SQ SCH ×2 (09:56→21:58)
[2016-09-29] MEDS: HYDROXYCHLOROQUINE SO4 200 MG TABLET (FP) PO SCH ×2 (09:56→21:58)
[2016-09-29] MEDS: PANTOPRAZOLE 40 MG TABLET (FP) PO SCH ×2 (09:56→21:58)
[2016-09-29] MEDS: ACLIDINIUM BROMIDE 400 MCG/INH AERO.POWD IH SCH ×2 (09:57→21:57)
[2016-09-29 10:13] LABS: CALCIUM 8.3 mg/dL (8.5-10.1); CREATININE 0.6 mg/dL (0.55-1.02)
[2016-09-29] MEDS: VANCOMYCIN 1 GRAM (PRE-DOCKED) 250 ML IVPB SCH ×3 (10:38→22:58)
--- NOTE | 2016-09-29 11:00 | PN ---
Progress Note, Physician History of Present Illness: C/O bilateral foot and leg pain with weight bearing No c/o fever/ chills Tolerating cephalosporin WBC improved - Current Medication List Current Medications: Active Medications Acetaminophen (Tylenol -) 650 mg PO Q6H PRN PRN Reason: FEVER OR PAIN Last Admin: 09/27/16 23:37 Dose: 650 mg Aclidinium [place] (Tudorza -) 1 puff IH BID [facility] Last Admin: 09/29/16 09:57 Dose: 1 puff Albuterol Sulfate (Ventolin 0.083% Nebulizer Soln -) 1 amp NEB Q4H PRN PRN Reason: SHORT OF BREATH/WHEEZING Aspirin (Asa -) 81 mg PO DAILY [facility] Last Admin: 09/29/16 09:54 Dose: 81 mg Budesonide/Formoterol Fumarate (Symbicort 80/4.5mcg -) 2 puff IH BID [facility] Last Admin: 09/29/16 09:56 Dose: 2 puff Cyclobenzaprine HCl (Flexeril -) 5 mg PO BID PRN PRN Reason: BACK PAIN Last Admin: 09/29/16 09:55 Dose: 5 mg Docusate Sodium (Colace -) 100 mg PO TID PRN PRN Reason: CONSTIPATION Last Admin: 09/29/16 09:55 Dose: 100 mg Duloxetine HCl (Cymbalta -) 60 mg PO DAILY [facility] Last Admin: 09/29/16 09:54 Dose: 60 mg Gabapentin (Neurontin -) 800 mg PO TID [facility] Last Admin: 09/29/16 06:33 Dose: 800 mg Heparin Sodium (Porcine) (Heparin -) 5,000 unit SQ BID [facility] Last Admin: 09/29/16 09:56 Dose: 5,000 unit Hydroxychloroquine Sulfate (Plaquenil -) 200 mg PO BID [facility] Last Admin: 09/29/16 09:56 Dose: 200 mg Vancomycin HCl (Vancomycin (Pre-Docked)) 250 mls @ 166.667 mls/hr IVPB Q12H [facility] Last Admin: 09/29/16 10:38 Dose: 166.667 mls/hr Ceftriaxone Sodium (Rocephin 1gm Ivpb (Pre-Docked)) 50 mls @ 100 mls/hr IVPB DAILY [facility] Last Admin: 09/29/16 09:50 Dose: 100 mls/hr Lactobacillus Acidophilus (Bacid -) 1 tab PO DAILY [facility] Last Admin: 09/29/16 09:54 Dose: 1 tab Lidocaine (Lidoderm Patch -) 2 patch TP DAILY [facility] Last Admin: 09/29/16 09:52 Dose: 2 patch Metoclopramide HCl (Reglan -) 10 mg PO ACHS [facility] Last Admin: 09/29/16 06:33 Dose: 10 mg Oxycodone HCl (Oxycontin -) 80 mg PO BID [facility] Last Admin: 09/29/16 09:54 Dose: 80 mg Pantoprazole Sodium (Protonix -) 40 mg PO BID [facility] Last Admin: 09/29/16 09:56 Dose: 40 mg Polyethylene Glycol (Miralax (For Daily Use) -) 17 gm PO DAILY PRN PRN Reason: CONSTIPATION Ranitidine HCl (Zantac -) 150 mg PO DAILY [facility] Last Admin: 09/29/16 09:55 Dose: 150 mg - Objective Vital Signs: Vital Signs Temperature 98.6 F 09/29/16 06:00 Pulse Rate 80 09/29/16 06:00 Respiratory Rate 20 09/29/16 06:00 Blood Pressure 104/66 09/29/16 06:00 O2 Sat by Pulse Oximetry (%) 93 L 09/28/16 21:00 Constitutional: Yes: No Distress, Cachectic Eyes: Yes: Conjunctiva Clear Cardiovascular: Yes: Regular Rate and Rhythm, S1, S2 Respiratory: Yes: Rhonchi Gastrointestinal: Yes: Normal Bowel Sounds, Soft. No: Tenderness Extremities: Yes: Other (decreased bilateral LE sweliing and erythema Less tender to touch) Labs: CBC, BMP 09/29/16 06:00 09/29/16 06:00 Assessment/Plan Bilateral LE cellulitis Leukocytosis- improved PCN allergy Hx MRSA Continue vancomycin/ ceftriaxone Check vancomycin level LE elevation
--- NOTE | 2016-09-29 15:52 | PN ---
Progress Note, Physician Chief Complaint: in bed has neuropathic pain of her feet less swelling still rash - Current Medication List Current Medications: Active Medications Acetaminophen (Tylenol -) 650 mg PO Q6H PRN PRN Reason: FEVER OR PAIN Last Admin: 09/27/16 23:37 Dose: 650 mg Aclidinium [place] (Tudorza -) 1 puff IH BID [facility] Last Admin: 09/29/16 09:57 Dose: 1 puff Albuterol Sulfate (Ventolin 0.083% Nebulizer Soln -) 1 amp NEB Q4H PRN PRN Reason: SHORT OF BREATH/WHEEZING Aspirin (Asa -) 81 mg PO DAILY [facility] Last Admin: 09/29/16 09:54 Dose: 81 mg Budesonide/Formoterol Fumarate (Symbicort 80/4.5mcg -) 2 puff IH BID [facility] Last Admin: 09/29/16 09:56 Dose: 2 puff Cyclobenzaprine HCl (Flexeril -) 5 mg PO BID PRN PRN Reason: BACK PAIN Last Admin: 09/29/16 09:55 Dose: 5 mg Docusate Sodium (Colace -) 100 mg PO TID PRN PRN Reason: CONSTIPATION Last Admin: 09/29/16 09:55 Dose: 100 mg Duloxetine HCl (Cymbalta -) 60 mg PO DAILY [facility] Last Admin: 09/29/16 09:54 Dose: 60 mg Gabapentin (Neurontin -) 800 mg PO TID [facility] Last Admin: 09/29/16 14:19 Dose: 800 mg Heparin Sodium (Porcine) (Heparin -) 5,000 unit SQ BID [facility] Last Admin: 09/29/16 09:56 Dose: 5,000 unit Hydroxychloroquine Sulfate (Plaquenil -) 200 mg PO BID [facility] Last Admin: 09/29/16 09:56 Dose: 200 mg Vancomycin HCl (Vancomycin (Pre-Docked)) 250 mls @ 166.667 mls/hr IVPB Q12H [facility] Last Admin: 09/29/16 10:38 Dose: 166.667 mls/hr Ceftriaxone Sodium (Rocephin 1gm Ivpb (Pre-Docked)) 50 mls @ 100 mls/hr IVPB DAILY [facility] Last Admin: 09/29/16 09:50 Dose: 100 mls/hr Lactobacillus Acidophilus (Bacid -) 1 tab PO DAILY [facility] Last Admin: 09/29/16 09:54 Dose: 1 tab Lidocaine (Lidoderm Patch -) 2 patch TP DAILY [facility] Last Admin: 09/29/16 09:52 Dose: 2 patch Metoclopramide HCl (Reglan -) 10 mg PO ACHS [facility] Last Admin: 09/29/16 12:33 Dose: 10 mg Oxycodone HCl (Oxycontin -) 80 mg PO BID [facility] Last Admin: 09/29/16 09:54 Dose: 80 mg Pantoprazole Sodium (Protonix -) 40 mg PO BID [facility] Last Admin: 09/29/16 09:56 Dose: 40 mg Polyethylene Glycol (Miralax (For Daily Use) -) 17 gm PO DAILY PRN PRN Reason: CONSTIPATION Ranitidine HCl (Zantac -) 150 mg PO DAILY [facility] Last Admin: 09/29/16 09:55 Dose: 150 mg - Objective Vital Signs: Vital Signs Temperature 98.1 F 09/29/16 14:00 Pulse Rate 90 09/29/16 14:00 Respiratory Rate 20 09/29/16 14:00 Blood Pressure 121/63 09/29/16 14:00 O2 Sat by Pulse Oximetry (%) 94 L 09/29/16 10:00 Constitutional: Yes: No Distress Eyes: Yes: Conjunctiva Clear HENT: Yes: Atraumatic Neck: Yes: Supple Cardiovascular: Yes: Regular Rate and Rhythm Respiratory: Yes: CTA Bilaterally Gastrointestinal: Yes: Soft Musculoskeletal: No: Joint Stiffness, Joint Swelling Extremities: No: Cold, Cool Edema: No Peripheral Pulses WNL: Yes Integumentary: No: Rash, Venous Stasis Changes Neurological: Yes: WNL, Alert, Oriented ...Motor Strength: WNL Psychiatric: Yes: WNL, Alert, Oriented. No: Agitated, Suicidal Ideation Labs: CBC, BMP 09/29/16 06:00 09/29/16 06:00 - ....Imaging Other: Report Reviewed Assessment/Plan 51 YOF scleroderma, LBP, opaites dep, gastroparesis, recurrent legs cellulitis, also h/o bursitis, smoker admitted with recurrent legs cellulitis and pain; pt asked for oxycontin 80 BID IV ATB per ID advised to taper opiates falls PFX rheum f/u at [facility] [place]
[2016-09-30] MEDS: METOCLOPRAMIDE HCL 10 MG TABLET (FP) PO SCH ×4 (06:01→21:37)
[2016-09-30] MEDS: GABAPENTIN 400 MG CAPSULE (FP) PO SCH ×3 (06:01→21:37)
[2016-09-30 06:35] LABS: BASOPHIL 1.2 % (0-2.0); EOSINOPHIL 4.3 % (0-4.5); MCH 25.6 pg (25.7-33.7); MCHC 31.3 g/dl (32.0-36.0); MEAN CELL VOLUME 81.7 fl (80-96); MEAN PLT VOLUME 7.8 fl (7.5-11.1); NEUTROPHILS 52.6 % (42.8-82.8); PLATELET COUNT 291 K/MM3 (134-434); RDW 21.6 % (11.6-15.6); WHITE BLOOD COUNT 5.6 K/mm3 (4.0-10.0)
[2016-09-30 07:13] LABS: CALCIUM 8.3 mg/dL (8.5-10.1); CREATININE 0.7 mg/dL (0.55-1.02)
[2016-09-30] MEDS ORDERED: PT OWN MED DRAWER 7, Y5N ONE ×3 (09:47→21:22)
[2016-09-30] MEDS: ACLIDINIUM BROMIDE 400 MCG/INH AERO.POWD IH SCH ×2 (09:55→21:36)
[2016-09-30] MEDS: BUDESONIDE/FORMETEROL FUMARATE 80/4.5 mcg INHALER IH SCH ×2 (09:56→21:36)
[2016-09-30] MEDS: LIDOCAINE 5% TOPICAL PATCH TP SCH (09:56)
[2016-09-30] MEDS: HYDROXYCHLOROQUINE SO4 200 MG TABLET (FP) PO SCH ×2 (09:57→21:37)
[2016-09-30] MEDS: PANTOPRAZOLE 40 MG TABLET (FP) PO SCH ×2 (09:58→21:37)
[2016-09-30] MEDS: LACTOBACILLUS ACIDOPHILUS 1 EACH TAB (FP) PO SCH (09:58)
[2016-09-30] MEDS: ASPIRIN 81 MG CHEWABLE TABLETS PO SCH (09:58)
[2016-09-30] MEDS: DULoxetine HCL 30 MG CAPSULE.DR (FP) PO SCH (09:58)
[2016-09-30] MEDS: DOCUSATE SODIUM 100 MG CAPSULE (FP) PO PRN (09:58)
[2016-09-30] MEDS: oxyCODONE HCL 40 MG SUSTAINED ACTING TABLET PO SCH ×2 (09:58→21:37)
[2016-09-30] MEDS: CYCLOBENZAPRINE HCL 10 MG TABLET (FP) PO PRN (09:59)
[2016-09-30] MEDS: RANITIDINE HCL 150 MG TABLET (FP) PO SCH (10:00)
[2016-09-30] MEDS: HEPARIN NA (PORCINE) 5,000 UNITS/ML 1ML VIAL SQ SCH ×2 (10:02→21:35)
[2016-09-30] MEDS: CEFTRIAXONE 50 ML IVPB SCH (10:02)
--- NOTE | 2016-09-30 14:27 | PN ---
Progress Note, Physician History of Present Illness: No fever, chills, SOB, CP, dizziness, lightheadedness, abd pain, diarrhea. Legs are feeling better, less painful - Current Medication List Current Medications: Active Medications Acetaminophen (Tylenol -) 650 mg PO Q6H PRN PRN Reason: FEVER OR PAIN Last Admin: 09/27/16 23:37 Dose: 650 mg Aclidinium [place] (Tudorza -) 1 puff IH BID [facility] Last Admin: 09/30/16 09:55 Dose: 1 puff Albuterol Sulfate (Ventolin 0.083% Nebulizer Soln -) 1 amp NEB Q4H PRN PRN Reason: SHORT OF BREATH/WHEEZING Aspirin (Asa -) 81 mg PO DAILY [facility] Last Admin: 09/30/16 09:58 Dose: 81 mg Budesonide/Formoterol Fumarate (Symbicort 80/4.5mcg -) 2 puff IH BID [facility] Last Admin: 09/30/16 09:56 Dose: 2 puff Cyclobenzaprine HCl (Flexeril -) 5 mg PO BID PRN PRN Reason: BACK PAIN Last Admin: 09/30/16 09:59 Dose: 5 mg Docusate Sodium (Colace -) 100 mg PO TID PRN PRN Reason: CONSTIPATION Last Admin: 09/30/16 09:58 Dose: 100 mg Duloxetine HCl (Cymbalta -) 60 mg PO DAILY [facility] Last Admin: 09/30/16 09:58 Dose: 60 mg Gabapentin (Neurontin -) 800 mg PO TID [facility] Last Admin: 09/30/16 14:24 Dose: 800 mg Heparin Sodium (Porcine) (Heparin -) 5,000 unit SQ BID [facility] Last Admin: 09/30/16 10:02 Dose: 5,000 unit Hydroxychloroquine Sulfate (Plaquenil -) 200 mg PO BID [facility] Last Admin: 09/30/16 09:57 Dose: 200 mg Ceftriaxone Sodium (Rocephin 1gm Ivpb (Pre-Docked)) 50 mls @ 100 mls/hr IVPB DAILY [facility] Last Admin: 09/30/16 10:02 Dose: 100 mls/hr Lactobacillus Acidophilus (Bacid -) 1 tab PO DAILY [facility] Last Admin: 09/30/16 09:58 Dose: 1 tab Lidocaine (Lidoderm Patch -) 2 patch TP DAILY [facility] Last Admin: 09/30/16 09:56 Dose: 2 patch Metoclopramide HCl (Reglan -) 10 mg PO ACHS [facility] Last Admin: 09/30/16 10:00 Dose: 10 mg Oxycodone HCl (Oxycontin -) 80 mg PO BID [facility] Last Admin: 09/30/16 09:58 Dose: 80 mg Pantoprazole Sodium (Protonix -) 40 mg PO BID [facility] Last Admin: 09/30/16 09:58 Dose: 40 mg Polyethylene Glycol (Miralax (For Daily Use) -) 17 gm PO DAILY PRN PRN Reason: CONSTIPATION Ranitidine HCl (Zantac -) 150 mg PO DAILY [facility] Last Admin: 09/30/16 10:00 Dose: 150 mg - Objective Vital Signs: Vital Signs Temperature 98.5 F 09/30/16 10:00 Pulse Rate 93 H 09/30/16 10:00 Respiratory Rate 20 09/30/16 10:00 Blood Pressure 106/76 09/30/16 10:00 O2 Sat by Pulse Oximetry (%) 93 L 09/30/16 10:00 Constitutional: Yes: No Distress, Calm Cardiovascular: Yes: Regular Rate and Rhythm, S1, S2 Respiratory: Yes: Regular, Rhonchi (scaterred) Gastrointestinal: Yes: Normal Bowel Sounds, Soft. No: Tenderness Integumentary: Yes: Rash (on LE, improved) Neurological: Yes: Alert, Oriented Labs: CBC, BMP 09/30/16 06:00 09/30/16 06:00 Problem List - Problems (1) Cellulitis of both lower extremities Assessment/Plan: on IV Vanco. Vanco trough high this AM ID consult appreciated Code(s): L03.115 - CELLULITIS OF RIGHT LOWER LIMB L03.116 - CELLULITIS OF LEFT LOWER LIMB (2) Anemia Assessment/Plan: chronic Code(s): D64.9 - ANEMIA, UNSPECIFIED Qualifiers: Anemia type: iron deficiency Iron deficiency anemia type: unspecified iron deficiency Qualified Code(s): D50.9 - Iron deficiency anemia, unspecified (3) Scleroderma progressive Code(s): M34.0 - PROGRESSIVE SYSTEMIC SCLEROSIS (4) Chronic low back pain Assessment/Plan: on pain medication- trying to tapering down. Code(s): M54.5 - LOW BACK PAIN G89.29 - OTHER CHRONIC PAIN (5) COPD (chronic obstructive pulmonary disease) Code(s): J44.9 - CHRONIC OBSTRUCTIVE PULMONARY DISEASE, UNSPECIFIED Assessment/Plan [facility] in AM
--- NOTE | 2016-09-30 18:39 | PN ---
Progress Note, Physician History of Present Illness: Reports less leg pain/ swelling No fever/ chills - Current Medication List Current Medications: Active Medications Acetaminophen (Tylenol -) 650 mg PO Q6H PRN PRN Reason: FEVER OR PAIN Last Admin: 09/27/16 23:37 Dose: 650 mg Aclidinium [place] (Tudorza -) 1 puff IH BID [facility] Last Admin: 09/30/16 09:55 Dose: 1 puff Albuterol Sulfate (Ventolin 0.083% Nebulizer Soln -) 1 amp NEB Q4H PRN PRN Reason: SHORT OF BREATH/WHEEZING Aspirin (Asa -) 81 mg PO DAILY [facility] Last Admin: 09/30/16 09:58 Dose: 81 mg Budesonide/Formoterol Fumarate (Symbicort 80/4.5mcg -) 2 puff IH BID [facility] Last Admin: 09/30/16 09:56 Dose: 2 puff Cyclobenzaprine HCl (Flexeril -) 5 mg PO BID PRN PRN Reason: BACK PAIN Last Admin: 09/30/16 09:59 Dose: 5 mg Docusate Sodium (Colace -) 100 mg PO TID PRN PRN Reason: CONSTIPATION Last Admin: 09/30/16 09:58 Dose: 100 mg Duloxetine HCl (Cymbalta -) 60 mg PO DAILY [facility] Last Admin: 09/30/16 09:58 Dose: 60 mg Gabapentin (Neurontin -) 800 mg PO TID [facility] Last Admin: 09/30/16 14:24 Dose: 800 mg Heparin Sodium (Porcine) (Heparin -) 5,000 unit SQ BID [facility] Last Admin: 09/30/16 10:02 Dose: 5,000 unit Hydroxychloroquine Sulfate (Plaquenil -) 200 mg PO BID [facility] Last Admin: 09/30/16 09:57 Dose: 200 mg Ceftriaxone Sodium (Rocephin 1gm Ivpb (Pre-Docked)) 50 mls @ 100 mls/hr IVPB DAILY [facility] Last Admin: 09/30/16 10:02 Dose: 100 mls/hr Lactobacillus Acidophilus (Bacid -) 1 tab PO DAILY [facility] Last Admin: 09/30/16 09:58 Dose: 1 tab Lidocaine (Lidoderm Patch -) 2 patch TP DAILY [facility] Last Admin: 09/30/16 09:56 Dose: 2 patch Metoclopramide HCl (Reglan -) 10 mg PO ACHS [facility] Last Admin: 09/30/16 17:48 Dose: 10 mg Oxycodone HCl (Oxycontin -) 80 mg PO BID [facility] Last Admin: 09/30/16 09:58 Dose: 80 mg Pantoprazole Sodium (Protonix -) 40 mg PO BID [facility] Last Admin: 09/30/16 09:58 Dose: 40 mg Polyethylene Glycol (Miralax (For Daily Use) -) 17 gm PO DAILY PRN PRN Reason: CONSTIPATION Ranitidine HCl (Zantac -) 150 mg PO DAILY [facility] Last Admin: 09/30/16 10:00 Dose: 150 mg - Objective Vital Signs: Vital Signs Temperature 98.9 F 09/30/16 14:00 Pulse Rate 90 09/30/16 14:00 Respiratory Rate 20 09/30/16 14:00 Blood Pressure 109/82 09/30/16 14:00 O2 Sat by Pulse Oximetry (%) 93 L 09/30/16 10:00 Constitutional: Yes: No Distress, Cachectic Eyes: Yes: Conjunctiva Clear Cardiovascular: Yes: Regular Rate and Rhythm, S1, S2 Respiratory: Yes: Rhonchi Gastrointestinal: Yes: Normal Bowel Sounds, Soft. No: Tenderness Extremities: Yes: Other (decreased bilateral LE swelling/ erythema/ tenderness) Labs: CBC, BMP 09/30/16 06:00 09/30/16 06:00 Assessment/Plan Bilateral LE cellulitis- improved Leukocytosis- improved PCN allergy Hx MRSA Continue ceftriaxone. Hold vancomycin ( elevated trough) Check vancomycin level am LE elevation
[2016-10-01] MEDS: GABAPENTIN 400 MG CAPSULE (FP) PO SCH (06:45)
[2016-10-01] MEDS: METOCLOPRAMIDE HCL 10 MG TABLET (FP) PO SCH ×2 (06:45→11:50)
--- NOTE | 2016-10-01 08:38 | PN ---
Progress Note, Physician History of Present Illness: Awake, alert No c/o leg pain No fever/ chills WBC improved Cultures negative Vanco held due to elevated trough On ceftriaxone; tolerating med without adverse reaction - Current Medication List Current Medications: Active Medications Acetaminophen (Tylenol -) 650 mg PO Q6H PRN PRN Reason: FEVER OR PAIN Last Admin: 09/27/16 23:37 Dose: 650 mg Aclidinium [place] (Tudorza -) 1 puff IH BID [facility] Last Admin: 09/30/16 21:36 Dose: Not Given Albuterol Sulfate (Ventolin 0.083% Nebulizer Soln -) 1 amp NEB Q4H PRN PRN Reason: SHORT OF BREATH/WHEEZING Aspirin (Asa -) 81 mg PO DAILY [facility] Last Admin: 09/30/16 09:58 Dose: 81 mg Budesonide/Formoterol Fumarate (Symbicort 80/4.5mcg -) 2 puff IH BID [facility] Last Admin: 09/30/16 21:36 Dose: 2 puff Cyclobenzaprine HCl (Flexeril -) 5 mg PO BID PRN PRN Reason: BACK PAIN Last Admin: 09/30/16 09:59 Dose: 5 mg Docusate Sodium (Colace -) 100 mg PO TID PRN PRN Reason: CONSTIPATION Last Admin: 09/30/16 09:58 Dose: 100 mg Duloxetine HCl (Cymbalta -) 60 mg PO DAILY [facility] Last Admin: 09/30/16 09:58 Dose: 60 mg Gabapentin (Neurontin -) 800 mg PO TID [facility] Last Admin: 10/01/16 06:45 Dose: 800 mg Heparin Sodium (Porcine) (Heparin -) 5,000 unit SQ BID [facility] Last Admin: 09/30/16 21:35 Dose: 5,000 unit Hydroxychloroquine Sulfate (Plaquenil -) 200 mg PO BID [facility] Last Admin: 09/30/16 21:37 Dose: 200 mg Ceftriaxone Sodium (Rocephin 1gm Ivpb (Pre-Docked)) 50 mls @ 100 mls/hr IVPB DAILY [facility] Last Admin: 09/30/16 10:02 Dose: 100 mls/hr Lactobacillus Acidophilus (Bacid -) 1 tab PO DAILY [facility] Last Admin: 09/30/16 09:58 Dose: 1 tab Lidocaine (Lidoderm Patch -) 2 patch TP DAILY [facility] Last Admin: 09/30/16 09:56 Dose: 2 patch Metoclopramide HCl (Reglan -) 10 mg PO ACHS [facility] Last Admin: 10/01/16 06:45 Dose: 10 mg Oxycodone HCl (Oxycontin -) 80 mg PO BID [facility] Last Admin: 09/30/16 21:37 Dose: 80 mg Pantoprazole Sodium (Protonix -) 40 mg PO BID [facility] Last Admin: 09/30/16 21:37 Dose: 40 mg Polyethylene Glycol (Miralax (For Daily Use) -) 17 gm PO DAILY PRN PRN Reason: CONSTIPATION Ranitidine HCl (Zantac -) 150 mg PO DAILY [facility] Last Admin: 09/30/16 10:00 Dose: 150 mg - Objective Vital Signs: Vital Signs Temperature 98.1 F 10/01/16 06:42 Pulse Rate 81 10/01/16 06:42 Respiratory Rate 16 10/01/16 06:42 Blood Pressure 114/74 10/01/16 06:42 O2 Sat by Pulse Oximetry (%) 93 L 09/30/16 10:00 Constitutional: Yes: No Distress, Cachectic Eyes: Yes: Conjunctiva Clear Cardiovascular: Yes: Regular Rate and Rhythm, S1, S2 Respiratory: Yes: CTA Bilaterally Gastrointestinal: Yes: Normal Bowel Sounds, Soft. 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
[2016-10-01] MEDS ORDERED: PT OWN MED DRAWER 7, Y5N ONE (09:27)
[2016-10-01] MEDS: HYDROXYCHLOROQUINE SO4 200 MG TABLET (FP) PO SCH (09:31)
[2016-10-01] MEDS: DULoxetine HCL 30 MG CAPSULE.DR (FP) PO SCH (09:31)
[2016-10-01] MEDS: PANTOPRAZOLE 40 MG TABLET (FP) PO SCH (09:31)
[2016-10-01] MEDS: RANITIDINE HCL 150 MG TABLET (FP) PO SCH (09:31)
[2016-10-01] MEDS: ASPIRIN 81 MG CHEWABLE TABLETS PO SCH (09:32)
[2016-10-01] MEDS: oxyCODONE HCL 40 MG SUSTAINED ACTING TABLET PO SCH (09:32)
[2016-10-01] MEDS: LIDOCAINE 5% TOPICAL PATCH TP SCH (09:32)
[2016-10-01] MEDS: LACTOBACILLUS ACIDOPHILUS 1 EACH TAB (FP) PO SCH (09:32)
[2016-10-01] MEDS: HEPARIN NA (PORCINE) 5,000 UNITS/ML 1ML VIAL SQ SCH (09:32)
[2016-10-01] MEDS: ACLIDINIUM BROMIDE 400 MCG/INH AERO.POWD IH SCH (09:33)
[2016-10-01] MEDS: CEFTRIAXONE 50 ML IVPB SCH (09:33)
[2016-10-01] MEDS: BUDESONIDE/FORMETEROL FUMARATE 80/4.5 mcg INHALER IH SCH (09:33)
[2016-10-01 09:42] VITALS: BP 118/74; PULSE 88; TEMP 98.4
--- NOTE | 2016-10-01 13:30 | DS ---
[id number] Rate 20 10/01/16 09:35 Blood Pressure 118/74 10/01/16 09:35 O2 Sat by Pulse Oximetry (%) 93 L 09/30/16 10:00 Findings/Remarks: No fever, chills, leg pain, abd pain, N, V; no CP, palp, SOB. Time spent for managing pt.'s DC : over 40 min Constitutional: Yes: No Distress, Calm Cardiovascular: Yes: Regular Rate and Rhythm, S1, S2 Respiratory: Yes: Regular, Rhonchi Gastrointestinal: Yes: Normal Bowel Sounds, Soft. No: Palpable Mass, Tenderness Edema: No Integumentary: Yes: Rash (minimal on LEs), Venous Stasis Changes Neurological: Yes: Alert, Oriented Psychiatric: Yes: Alert, Oriented Labs: CBC, BMP 09/30/16 06:00 09/30/16 06:00 Discharge Summary Reason For Visit: CELLULITIS OF BOTH LOWER EXTREMITIES Current Active Problems Cellulitis of both lower extremities (Acute) Chronic low back pain (Acute) Procedures: Principal: Doppler US of LE Other Procedures: CXR Hospital Course: Pt came to ER with LEs pain and swelling, after failed outpatient abtx treatment. Pt was started on IV Vanco, Ceftriaxone; pt. was seen by ID in conuslt; pt improved slowly. Pt. to be DC'ed home on PO abtx Condition: Improved - Instructions Diet, Activity, Other Instructions: regular diet Referrals: Eva Gonzalez [Primary Care Provider] - (within 1-2 weeks(call for appt.)) Lee Guerrero MD [Staff Physician] - Disposition: HOME - Home Medications Comprehensive Discharge Medication List: Ambulatory Orders Duloxetine HCl [Cymbalta -] 60 mg PO DAILY #30 capsule. 03/10/15 Albuterol 0.083% Nebulizer Cinthya [Ventolin 0.083% Nebulizer Soln -] 1 amp NEB Q4H PRN #1 amp 04/11/16 Aspirin [ASA -] 81 mg PO DAILY tab.chew 04/11/16 Budesonide/Formeterol Fumarate [SYMBICORT 80/4.5mcg -] 2 puff IH BID #1 inhaler 04/11/16 Tiotropium [place] [Spiriva] 1 puff IH DAILY #1 inh 04/27/16 Docusate Sodium [Colace -] 100 mg PO TID PRN 05/27/16 Polyethylene Glycol 3350 [Miralax 119 gm Btl -] 17 gm PO DAILY PRN 05/27/16 Ranitidine [Zantac -] 150 mg PO DAILY 05/27/16 Gabapentin [Neurontin -] 800 mg PO TID capsule 05/28/16 Mupirocin Ointment [Bactroban 2% Ointment -] 1 applic TP BID applic 05/28/16 Aclidinium [place] [Tudorza -] 1 puff IH DAILY inhaler 07/20/16 Lactobacillus Acidophilus [Bacid -] 1 each PO DAILY #30 capsule 07/20/16 Metoclopramide HCl [Reglan -] 10 mg PO ACHS tablet 07/20/16 Acetaminophen [Tylenol .Regular Strength -] 650 mg PO Q6H PRN #0 tablet Hydroxychloroquine So4 [Plaquenil -] 200 mg PO BID tablet 07/31/16 Pantoprazole Sodium [Protonix -] 40 mg PO BID tablet.ec 07/31/16 Cyclobenzaprine HCl [Flexeril -] 5 mg PO BID PRN #20 tablet 09/16/16 Lactobacillus Acidophilus [Bacid -] 1 tab PO DAILY tab 09/16/16 Levofloxacin [Levaquin] 750 mg PO DAILY #5 tab 09/16/16 Lidocaine 5% Patch [Lidoderm -] 2 patch TP DAILY #60 patch 09/16/16 Mupirocin Ointment [Bactroban Ointment (For Decolonization) -] 1 applic NS BID applic 09/16/16 Prednisone 10 mg PO AM #20 tablet 09/16/16
[2016-10-02] MEDS ORDERED: CEPHALEXIN MONOHYDRATE 500 MG CAPSULE (UD) PO SCH (06:00)
== END 2016-10-01 14:17 | disposition home or self-care (01) | DRG 603 ==
LOC: SUPCPDRO 13:46 → JER 13:46 → JERBED 17:52 → J4S 22:36
PROVIDERS: ADMIT Internal Medicine; ATTEND Internal Medicine
DX: L03.116 Cellulitis of left lower limb (principal); E46 Unspecified protein-calorie malnutrition; Z68.1 Body mass index [BMI] 19.9 or less, adult; F11.20 Opioid dependence, uncomplicated; L03.115 Cellulitis of right lower limb; D64.9 Anemia, unspecified; J45.909 Unspecified asthma, uncomplicated; K21.9 Gastro-esophageal reflux disease without esophagitis; E78.00 Pure hypercholesterolemia, unspecified; E03.9 Hypothyroidism, unspecified; I73.00 Raynaud's syndrome without gangrene; G62.89 Other specified polyneuropathies; K27.9 Peptic ulcer, site unspecified, unspecified as acute or chronic, without hemorrhage or perforation; M54.5 Low back pain; K22.70 Barrett's esophagus without dysplasia; K22.2 Esophageal obstruction; I77.6 Arteritis, unspecified; K31.84 Gastroparesis; F17.200 Nicotine dependence, unspecified, uncomplicated; D50.9 Iron deficiency anemia, unspecified; M34.0 Progressive systemic sclerosis; Z86.14 Personal history of Methicillin resistant Staphylococcus aureus infection; Z88.0 Allergy status to penicillin; Z89.029 Acquired absence of unspecified finger(s)
CPT/HCPCS: 36415; 71010-TC; 80048; 80053; 80307; 81003; 81015; 83605; 85025; 85027; 85651; 87040; 93005; 93010; 93970-TC; 99284-25; G0480; J1644

== ENCOUNTER 2016-12-12 20:41 | Inpatient (IN) | payer OTHER ==
--- NOTE | 2016-12-12 20:47 | PDOC ---
History of Present Illness - General History Source: EMS Exam Limitations: Clinical Condition, Intubated, Unresponsive - History of Present Illness Initial Comments: 12/12/16 21:08 The patient is a 51 year old female with multiple significant pmhx including advanced COPD/asthma, hyperlipidemia, scleroderma, chronic LBP opiates dep, gastroparesis, Raynaud's w/ multiple upper extremity digit amputations, and CREST syndrome who presents to the ED BIBA for AMS. Patient was found down unresponsive with agonal breathing. EMS was contacted and upon arrival, 2 mg of narcan was administered with no response. 100 of succinylcholine and 5 mg of versed was administered and intubation (7 ET) was done at the scene. Pt presents to the ER being bagged by BVM. Allergies: penicillin Social History: polysubstance abuse (marijuana, tobacco and prescription narcotics) Past Surgical History: Appendectomy, Colonoscopy, Upper Endoscopy PCP: Dr. 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) CVA: No COPD: Yes CHF: No Dementia: No Diabetes: No GI Disorders: Yes (REFLUX) Disorders: No HTN: No Hypercholesterolemia: Yes Liver Disease: No Seizures: No Thyroid Disease: Yes (HYPO.) - Surgical History Abdominal Surgery: Yes Appendectomy: Yes Cardiac Surgery: No Cholecystectomy: No Lung Surgery: No Neurologic Surgery: Yes (LS/RODS &BONE FUSIONS) Orthopedic Surgery: Yes (multiple back sx, hand sx,b/o hip) - Immunization History Immunization Up to Date: Yes - Psycho/Social/Smoking Cessation Hx Anxiety: No Suicidal Ideation: No Smoking Status: No Smoking History: Former smoker Have you smoked in the past 12 months: Yes Number of Cigarettes Smoked Daily: 10 If you are a former smoker, when did you quit?: 2016 - 4 months ago 'Breaking Loose' booklet given: 09/12/16 Hx Alcohol Use: No Drug/Substance Use Hx: No Substance Use Type: None Hx Substance Use Treatment: No <Jed Mcelroy - Last Filed: 12/12/16 22:17> - Past Medical History Allergies/Adverse Reactions: Allergies Allergy/AdvReac Type Severity Reaction Status Date / Time Penicillins Allergy Severe Hives Verified 12/12/16 20:47 tomato AdvReac Uncoded 12/12/16 20:47 Home Medications: Ambulatory Orders Duloxetine HCl [Cymbalta -] 60 mg PO DAILY #30 capsule. 03/10/15 Albuterol 0.083% Nebulizer Cinthya [Ventolin 0.083% Nebulizer Soln -] 1 amp NEB Q4H PRN #1 amp 04/11/16 Aspirin [ASA -] 81 mg PO DAILY tab.chew 04/11/16 Budesonide/Formeterol Fumarate [SYMBICORT 80/4.5mcg -] 2 puff IH BID #1 inhaler 04/11/16 Tiotropium [place] [Spiriva] 1 puff IH DAILY #1 inh 04/27/16 Docusate Sodium [Colace -] 100 mg PO TID PRN 05/27/16 Polyethylene Glycol 3350 [Miralax 119 gm Btl -] 17 gm PO DAILY PRN 05/27/16 Ranitidine [Zantac -] 150 mg PO DAILY 05/27/16 Gabapentin [Neurontin -] 800 mg PO TID capsule 05/28/16 Aclidinium [place] [Tudorza -] 1 puff IH DAILY inhaler 07/20/16 Lactobacillus Acidophilus [Bacid -] 1 each PO DAILY #30 capsule 07/20/16 Metoclopramide HCl [Reglan -] 10 mg PO ACHS tablet 07/20/16 Acetaminophen [Tylenol .Regular Strength -] 650 mg PO Q6H PRN #0 tablet Hydroxychloroquine So4 [Plaquenil -] 200 mg PO BID tablet 07/31/16 Pantoprazole Sodium [Protonix -] 40 mg PO BID tablet.ec 07/31/16 Cyclobenzaprine HCl [Flexeril -] 5 mg PO BID PRN #20 tablet 09/16/16 Lidocaine 5% Patch [Lidoderm -] 2 patch TP DAILY #60 patch 09/16/16 Oxycodone Sr [Oxycontin] 80 mg PO BID #60 tab.er.12h MDD 2 10/01/16 Review of Systems - Review of Systems Able to Perform ROS?: No Comments:: 12/12/16 21:08 Unable to obtain due to clinical condition <AnhaimNita wagner - Last Filed: 12/12/16 22:11> *Physical Exam - Vital Signs Last Vital Signs Temp Pulse Resp BP Pulse Ox 98.7 F 80 14 82/56 12/12/16 20:50 12/12/16 20:50 12/12/16 21:02 12/12/16 20:50 - Physical Exam Comments: 12/12/16 21:09 GENERAL: Pt is unresponsive and intubated. HEENT: Normocephalic, atraumatic. Pupils are 2-3 mm sluggishly reactive NECK: Supple. Full ROM. No JVD. CARDIOVASCULAR: Tachycardia. Regular rhythm. No murmurs, rubs, or gallops. PULMONARY: Lungs clear to auscultation bilaterally with BVM. ABDOMINAL: Soft. Non-distended. MUSCULOSKELETAL No gross bony deformities. EXTREMITIES: Mild cyanosis. No edema. Multiple upper extremity digit amputations. SKIN: Warm and dry. No rashes. No jaundice. NEUROLOGICAL: Pt is sedated. <RodolfoNita - Last Filed: 12/12/16 22:11> Heart Score/ECG Review - ECG Impressions Comment:: 12/12/16 21:43 NSR @79bpm Normal ECG <RodolfoNita - Last Filed: 12/12/16 22:11> ED Treatment Course - LABORATORY CBC & Chemistry Diagram: 12/12/16 20:50 12/12/16 20:50 <RodolfoNita - Last Filed: 12/12/16 22:11> - LABORATORY CBC & Chemistry Diagram: 12/12/16 20:50 12/12/16 20:50 <Jed Mcelroy - Last Filed: 12/12/16 22:17> Medical Decision Making - Medical Decision Making 12/12/16 22:[address] Eva Gonzalez (via answering service) at 22:06 Awaiting call back 12/12/16 22:11 Spoke to Britney HOFFMAN. Pt accepted for ICU admission. Patient's case discussed with Dr. Venkat Gonzalez at 22:11 <Nita Reynolds - Last Filed: 12/12/16 22:11> - Medical Decision Making 12/12/16 22:16 Dr. Mcelroy: The scribe's documentation has been prepared under my direction and personally reviewed by me in its entirery. I confirm that the note above accurately reflects all work, treatment, procedures, and medical decision making performed by me. Patient continues to be intubated, and will be admitted to the ICU. Urine tox positive for THC, Opiates, Benzos <Jed Mcelroy - Last Filed: 12/12/16 22:17> *DC/Admit/Observation/Transfer - Attestations Scribe Attestion: 12/12/16 21:09 Documentation prepared by Nita Reynolds, acting as medical secretary teacher for Jed Mcelroy MD <Nita Reynolds - Last Filed: 12/12/16 22:11> - Discharge Dispostion Admit: Yes <Jed Mcelroy - Last Filed: 12/12/16 22:17> Diagnosis at time of Disposition: Altered awareness, transient Overdose Qualifiers: Encounter type: initial encounter Injury intent: accidental or unintentional Qualified Code(s): T50.901A - Poisoning by unspecified drugs, medicaments and biological substances, accidental (unintentional), initial encounter - Referrals Referrals: Eva Gonzalez [Primary Care Provider] -
[2016-12-12] MEDS ORDERED: SODIUM CHLORIDE 1,000 ML IV STA (20:50)
[2016-12-12 21:12] LABS: BASOPHIL 0.4 % (0-2.0); EOSINOPHIL 4.8 % (0-4.5); MCH 26.5 pg (25.7-33.7); MCHC 31.9 g/dl (32.0-36.0); MEAN CELL VOLUME 83.2 fl (80-96); MEAN PLT VOLUME 8.2 fl (7.5-11.1); NEUTROPHILS 74.2 % (42.8-82.8); PLATELET COUNT 242 K/MM3 (134-434); RDW 17.9 % (11.6-15.6); WHITE BLOOD COUNT 5.5 K/mm3 (4.0-10.0)
[2016-12-12] MEDS ORDERED: LORAZEPAM CARPU-JECT 2 MG/ML DISP.SYRIN ONE (21:29)
[2016-12-12 21:34] LABS: INR 1.37 (0.82-1.09); PROTHROMBIN TIME (PATIENT) 15.2 SEC (9.98-11.88)
[2016-12-12 21:39] LABS: URINE APPEARANCE CLEAR; URINE BILIRUBIN NEGATIVE (NEGATIVE); URINE BLOOD NEGATIVE (NEGATIVE); URINE COLOR YELLOW; URINE GLUCOSE (UA) NEGATIVE (NEGATIVE); URINE KETONE TRACE (NEGATIVE); URINE LEUK ESTERASE NEGATIVE (NEGATIVE); URINE NITRITE NEGATIVE (NEGATIVE); URINE UROBILINOGEN 2.0 E.U/dl E.U./dl (0.2-1.0)
[2016-12-12 21:43] LABS: ALBUMIN 2.8 g/dl (3.4-5.0); ANION GAP 17 (8-16); CALCIUM 8.3 mg/dL (8.5-10.1); CO2 22 mmol/L (21-32); CREATININE 1.4 mg/dL (0.55-1.02); GLUCOSE,RANDOM 110 mg/dL (74-106); SGOT/AST 47 U/L (15-37); SGPT/ALT 35 U/L (12-78)
[2016-12-12 21:47] LABS: URINE PROTEIN 2+ (NEGATIVE)
[2016-12-12 21:47] LABS: ALK PHOS 52 U/L (45-117); BILIRUBIN,TOTAL 0.3 mg/dL (0.2-1.0); TOT PROT 6.6 g/dl (6.4-8.2); TROPONIN I < 0.02 ng/ml (0.00-0.05)
[2016-12-12 21:50] LABS: URINE BACTERIA RARE /hpf (NONE SEEN); URINE HYALINE CAST 30 /lpf; URINE MUCUS FEW; URINE RBC 15 /hpf (0-3); URINE WBC 19 /hpf (3-5)
[2016-12-12 22:08] LABS: URINE MARIJUANA THC POSITIVE ng/ml (CUTOFF=50)
[2016-12-12] MEDS ORDERED: LORAZEPAM CARPU-JECT 2 MG/ML DISP.SYRIN IVPUSH ONE (22:27)
[2016-12-12] MEDS ORDERED: SODIUM CHLORIDE 1,000 ML IV SCH (22:30)
[2016-12-12 23:10] LABS: ARTERIAL BLOOD GAS BASE EXCESS -0.1 meq/l (-2-2); ARTERIAL BLOOD GAS HCO3 25.7 meq/L (22-26); ARTERIAL BLOOD GAS pH 7.32 (7.35-7.45)
[2016-12-12 23:12] LABS: ALLENS TEST POSITIVE; ART PUNCT SITE RIGHT RADIAL; LPM/O2% 100%; MECH. VENT. YES; PT. ON O2? YES; TYPE OF O2 MECH VENT; VENT RATE 14; VT/PRESS 400
[2016-12-12 23:15] LABS: METHEMOGLOBIN 0.3 % (0.4-1.5)
[2016-12-13] MEDS ORDERED: PROPOFOL 100 ML ONE (00:35)
[2016-12-13] MEDS: PROPOFOL 100 ML IVPB SCH (00:45)
--- NOTE | 2016-12-13 00:57 | CONSULT ---
Consult Consult Specialty:: Pulm/CC - History of Present Illness History of Present Illness: Pt is a 51yr old woman with PMHx including COPD, chf, CAD, HLD, thyroid disease , scleroderma/CREST syndrome with associated gastric hypomotility and likely ILD , endometriosis, pain medication dependance, iron deficiency anemia, MDR klebsiella and e. coli in the sputum with multiple admissions for AMS/ respiratory infections and most recently from 09/27 - 10/01 for recurrent BLE cellulitis. Per report, pt brought into the ER via EMS after being found unresponsive with agonal breathing. Pt intubated in the field. In the ER pt with BUN/Cr 15/1.4 (Cr was 0.7 on 09/30) and 2+ protein. Pt now in the ICU for further management. 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 Normal coronaries on cardiac cath and EF 65% with mild AI, trace MR and TR on echo @ [facility] [place] 03/31) Pulmonary: Yes: Asthma, COPD, Pneumonia, Other (lung mass of undetermined etiology) Gastrointestinal: Yes: Constipation, Diverticulitis, Diverticulosis (small bowel diverticular perforation, scleroderma affecting the esophagus, Bonner's esophagus, Schatzki ring,GAVE syndrome, antral ulcer, gastroparesis related to scleroderma), GERD (with long segment Bonner's esophagus and patent Schatzki ring), Peptic Ulcer Disease (antral ulcer ), Other (Bonner's esophagus, GERD, Schatzki ring, perforation of small bowel diverticulum, antral ulcer, scleroderma causing esophageal dysmotility and gastroparesis) Renal/: Yes: Renal Failure Infectious Disease: Yes: MRSA (bursitis) Psych: Yes: Addictions (marijuana,tobacco and prescription narcotics) Musculoskeletal: Yes: Chronic low back pain, Other (has spinal stimulator) Rheumatology: Yes: Vasculitis, Other (Scleroderma, Raynauds and CREST syndrome) Endocrine: Yes: Hypothyroidism, Other (Malnutrition, osteoporosis) Dermatology: Yes: Cellulitis - Past Surgical History Past Surgical History: Yes: Appendectomy, Colonoscopy, Upper Endoscopy - Alcohol/Substance Use Hx Alcohol Use: No History of Substance Use: reports: Marijuana (quit 1 month ago), Prescription - Smoking History Smoking history: Former smoker Have you smoked in the past 12 months: Yes Aproximately how many cigarettes per day: 10 If you are a former smoker, when did you quit?: 2016 - 4 months ago - Social History Usual Living Arrangement: With Parent ADL: Independent Occupation: disabled History of Recent Travel: No Home Medications - Allergies Allergies/Adverse Reactions: Allergies Allergy/AdvReac Type Severity Reaction Status Date / Time Penicillins Allergy Severe Hives Verified 12/12/16 20:47 tomato AdvReac Uncoded 12/12/16 20:47 - Home Medications Home Medications: Ambulatory Orders Duloxetine HCl [Cymbalta -] 60 mg PO DAILY #30 capsule. 03/10/15 Albuterol 0.083% Nebulizer Cinthya [Ventolin 0.083% Nebulizer Soln -] 1 amp NEB Q4H PRN #1 amp 04/11/16 Aspirin [ASA -] 81 mg PO DAILY tab.chew 04/11/16 Budesonide/Formeterol Fumarate [SYMBICORT 80/4.5mcg -] 2 puff IH BID #1 inhaler 04/11/16 Tiotropium [place] [Spiriva] 1 puff IH DAILY #1 inh 04/27/16 Docusate Sodium [Colace -] 100 mg PO TID PRN 05/27/16 Polyethylene Glycol 3350 [Miralax 119 gm Btl -] 17 gm PO DAILY PRN 05/27/16 Ranitidine [Zantac -] 150 mg PO DAILY 05/27/16 Gabapentin [Neurontin -] 800 mg PO TID capsule 05/28/16 Aclidinium [place] [Tudorza -] 1 puff IH DAILY inhaler 07/20/16 Lactobacillus Acidophilus [Bacid -] 1 each PO DAILY #30 capsule 07/20/16 Metoclopramide HCl [Reglan -] 10 mg PO ACHS tablet 07/20/16 Acetaminophen [Tylenol .Regular Strength -] 650 mg PO Q6H PRN #0 tablet Hydroxychloroquine So4 [Plaquenil -] 200 mg PO BID tablet 07/31/16 Pantoprazole Sodium [Protonix -] 40 mg PO BID tablet.ec 07/31/16 Cyclobenzaprine HCl [Flexeril -] 5 mg PO BID PRN #20 tablet 09/16/16 Lidocaine 5% Patch [Lidoderm -] 2 patch TP DAILY #60 patch 09/16/16 Oxycodone Sr [Oxycontin] 80 mg PO BID #60 tab.er.12h MDD 2 10/01/16 Family Disease History - Family Disease History Family Disease History: Diabetes: Father (HCV), Heart Disease: Father, Mother, Other: Father, Brother (HIV) Physical Exam Vital Signs: Vital Signs Period Temp Pulse Resp BP Sys/Sotelo Pulse Ox Last 24 Hr 98.7 F 74-80 14-16 77-98/46-76 98-100 Intake & Output 12/10/16 12/11/16 12/12/16 12/13/16 23:59 23:59 23:59 23:59 Output Total 200 Balance -200 Weight 130 lb Constitutional: Yes: Thin, Other (sedated) Eyes: Yes: Other (pupils reactive to light, left slightly more dilated) HENT: No: Atraumatic Neck: Yes: Trachea Midline Cardiovascular: Yes: S1, S2, Other (sinus on tele) Respiratory: Yes: Intubated, Mechanically Ventilated, Wheezes (faint expiratory) Gastrointestinal: Yes: Distention, Hypoactive Bowel Sounds ...Rectal Exam: Yes: Deferred Renal/: Yes: Collier Present (yellow output) Extremities: Yes: Amputation (multiple bilateral distal phalanges amputated), Cool, Cyanosis, Delayed Capillary Refill Edema: No Peripheral Pulses WNL: (+2 bilateral pedal pulses) Integumentary: Yes: Laceration (left hand), Venous Stasis Changes (bilateral), Other (sacral nonblanchable redness) Neurological: Yes: Other (sedated) Labs: Abnormal Lab Results 12/12/16 12/12/16 12/12/16 20:30 20:50 20:50 Hgb 9.8 L Hct 30.9 L MCHC 31.9 L RDW 17.9 H D Eosinophils % 4.8 H INR 1.37 H ABG pH ABG pCO2 at Pt Temp ABG pO2 at Pt Temp ABG O2 Content Carboxyhemoglobin Methemoglobin Anion Gap Creatinine Random Glucose Calcium AST Creatine Kinase Albumin Urine Protein 2+ H Urine Ketones Trace H Urine Urobilinogen 2.0 e.u/dl H 12/12/16 12/12/16 12/12/16 20:50 23:00 23:00 Hgb Hct MCHC RDW Eosinophils % INR ABG pH 7.32 L ABG pCO2 at Pt Temp 51.5 H ABG pO2 at Pt Temp 411.0 H* ABG O2 Content 13.2 L Carboxyhemoglobin 2.3 H Methemoglobin 0.3 L Anion Gap 17 H Creatinine 1.4 H D Random Glucose 110 H D Calcium 8.3 L AST 47 H D Creatine Kinase 208 H D Albumin 2.8 L Urine Protein Urine Ketones Urine Urobilinogen Assessment/Plan Pt is a 51yr old woman with PMHx including COPD, chf, CAD, HLD, thyroid disease , scleroderma/CREST syndrome with associated gastric hypomotility and likely ILD , endometriosis, pain medication dependance, iron deficiency anemia, MDR klebsiella and e. coli in the sputum with multiple admissions for AMS/ respiratory infections and most recently from 09/27 - 10/01 for recurrent BLE cellulitis. Now in the ICU s/p intubation for unresponsiveness, likely a combination of over medication in the setting of COPD. Pulm: -Continue mechanical ventilation overnight -SBT as able -Nebulizers standing and prn -f/u repeat chest xray and abg ID: -f/u cultures -Consult -Monitor off antibiotics for now Neuro -Consult Pain management -Pt with significant opioid tolerance, would recommend continuing outpt dosages with close monitoring for breakthrough pain Immunology -Consult Renal -IVF as tolerated -Replete electrolytes prn Cardiac -f/u enzymes -Consider repeat ECHO GI: -f/u abdomen xray -- abdomen distention with hx of hypomotility -Continue home Reglan and colace Prophylactic -Bowel regiment -DVT -PPI
[2016-12-13] MEDS ORDERED: ALBUTEROL SO4 0.083% IH SOL 2.5 MG/3 ML VIAL.NEB. NEB PRN (00:58)
[2016-12-13] MEDS: FENTANYL INJECTION 500 MCG in DEXTROSE 5%-WATER - 90 ML IJ SCH ×2 (01:00→10:30)
[2016-12-13 01:17] VITALS: BMI 18.1
[2016-12-13] MEDS ORDERED: SODIUM CHLORIDE 250 ML IV STA (01:32)
[2016-12-13] MEDS ORDERED: LACTATED RINGERS SOLUTION 1,000 ML IV SCH (01:45)
[2016-12-13] MEDS ORDERED: METOCLOPRAMIDE HCL INJECTION 10 MG/2 ML VIAL IVPB ONE (02:34)
[2016-12-13] MEDS: DOCUSATE SODIUM 100 MG CAPSULE (FP) PO SCH ×3 (06:06→21:09)
[2016-12-13] MEDS: GABAPENTIN 250 MG/5 ML ORAL SOLUTION, 470 ML BOTTLE PO SCH ×3 (06:13→21:09)
[2016-12-13] MEDS ORDERED: FAMOTIDINE 20 MG/50 ML IVPB 50 ML IVPB ONE (06:17)
[2016-12-13 07:54] LABS: ARTERIAL BLD GAS O2 SATURATION 95.6 % (90-98.9); ARTERIAL BLOOD GAS BASE EXCESS -0.3 meq/l (-2-2); ARTERIAL BLOOD GAS HCO3 24.8 meq/L (22-26); ARTERIAL BLOOD GAS PO2 95.7 mmHg (80-100); ARTERIAL BLOOD GAS pH 7.35 (7.35-7.45)
[2016-12-13 07:56] LABS: ALLENS TEST POSITIVE; ART PUNCT SITE RIGHT RADIAL; LPM/O2% 40%; MECH. VENT. Y; PT. ON O2? YES; TYPE OF O2 VENT; VT/PRESS 400
[2016-12-13 07:57] LABS: VENT RATE 15
--- NOTE | 2016-12-13 08:04 | PN ---
Physical Exam: SUBJECTIVE: Patient seen and examined at bed side in ICU. extubated saturating well in no acute stress. on venti mask 40%. patient mother and sister at bed side. report long history of opoid dependence frequent overdose and aspirations. Diet history of insure no other food. OBJECTIVE: Vital Signs Period Temp Pulse Resp BP Sys/Sotelo Pulse Ox Last 24 Hr 98.2 F 64-74 12-15 82-98/55-77 91-100 GENERAL: The patient is awake, alert, and fully oriented, in no acute distress. HEAD: Normal with no signs of trauma. EYES: PERRL, extraocular movements intact, sclera anicteric, conjunctiva clear. No ptosis. ENT: Ears normal, nares patent, oropharynx clear without exudates, moist mucous membranes. NECK: Trachea midline, full range of motion, supple. LUNGS: Breath sounds equal, clear to auscultation bilaterally, no wheezes, no crackles, no accessory muscle use. HEART: Regular rate and rhythm, S1, S2 without murmur, rub or gallop. ABDOMEN: Soft, nontender, nondistended, normoactive bowel sounds, no guarding, no rebound, no hepatosplenomegaly, no masses. EXTREMITIES: 2+ pulses, warm, well-perfused, no edema. NEUROLOGICAL: Cranial nerves II through XII grossly intact. Normal speech, gait not observed. PSYCH: Normal mood, normal affect. SKIN: Warm, dry, normal turgor, no rashes or lesions noted Laboratory Results - last 24 hr 12/12/16 12/12/16 12/13/16 23:00 23:00 07:20 Puncture Site Right radial Right radial ABG pH 7.32 L 7.35 ABG pCO2 at Pt Temp 51.5 H 45.8 H ABG pO2 at Pt Temp 411.0 H* 95.7 D ABG HCO3 25.7 24.8 ABG O2 Sat (Measured) 98.0 95.6 ABG O2 Content 13.2 L 11.8 L ABG Base Excess -0.1 -0.3 Akash Test Positive Positive Carboxyhemoglobin 2.3 H Methemoglobin 0.3 L O2 Delivery Device Mech vent Vent Oxygen Flow Rate 100% 40% Vent Mode A/c A/c Vent Rate 14 15 Mechanical Rate Yes Y PEEP 5.0 5.0 Pressure Support Vent 400 400 Active Medications Generic Name Dose Route Start Last Admin Trade Name Maicolq PRN Reason Stop Dose Admin Albuterol Sulfate 1 amp 12/13/16 00:58 Ventolin 0.083% Nebulizer Soln - NEB Q4H PRN SHORT OF BREATH/WHEEZING Albuterol/Ipratropium 1 amp 12/13/16 10:00 Duoneb - NEB BID RAISSA Docusate Sodium 100 mg 12/13/16 06:00 12/13/16 06:06 Colace - PO 100 mg TID RAISSA Administration Gabapentin 800 mg 12/13/16 06:00 12/13/16 06:13 Neurontin Oral Liquid - PO 800 mg TID RAISSA Administration Sodium Chloride 1,000 mls @ 100 mls/hr 12/12/16 22:30 12/12/16 23:04 Normal Saline - IV 100 mls/hr ASDIR RAISSA Administration Pantoprazole Sodium 100 mls @ 200 mls/hr 12/13/16 10:00 Protonix 40mg Ivpb (Pre-Docked) IVPB DAILY RAISSA Propofol 100 mls @ 1.769 mls/hr 12/13/16 00:45 12/13/16 00:45 Diprivan - IVPB 1.769 mls/hr TITR RAISSA Administration Protocol 5 MCG/KG/MIN Fentanyl 500 mcg/ Dextrose 100 mls @ 10 mls/hr 12/13/16 01:00 12/13/16 01:00 IJ 10 mls/hr TITR RAISSA Administration 50 MCG/HR Lactated Ringer's 1,000 mls @ 125 mls/hr 12/13/16 01:45 12/13/16 01:45 Lactated Ringers Solution IV 125 mls/hr ASDIR RAISSA Administration Metoclopramide HCl 10 mg 12/13/16 10:00 Reglan Injection - IVPB BID RAISSA Pneumococcal 13-Valent Conj Vacc 0.5 ml 12/13/16 10:00 Prevnar 13 Syringe - IM 12/13/16 10:01 .ONCE ONE ASSESSMENT/PLAN: ABG : hypercapnia due to substance ingestion/use 51yr old woman with PMHx including COPD, chf, CAD, HLD, thyroid disease, 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 coli in the sputum with multiple admissions for AMS/ respiratory infections and most recently from 09/27 - 10/01 for recurrent BLE cellulitis. was unresponsiveness likely a combination of over medication in the setting of COPD, s/p extubated today Pulm: Acute Hypercapneic Respiratory Failure, extubated today, tolerating venti mask -Venti mask -SBT as able -Nebulizers standing and prn -f/u repeat chest xray ID: no fever, no leukocytes, MDR klebsiella and e. coli in the sputum with multiple admissions for AMS/respiratory infections -f/u cultures -Consult -Monitor off antibiotics for now Neuro -Consult - decrease Gabapentin for today, consider to continue home dose tomorrow Pain management -Pt with significant opioid tolerance, would recommend continuing outpt dosages with close monitoring for breakthrough pain -consulted Dr. Reza for pain management consult. Immunology -Consult Renal -decreased -Replete electrolytes prn -Decrease IVF Cardiac -f/u enzymes -Consider repeat ECHO GI: Scleroderma/CREST syndrome with associated gastric hypomotility -f/u abdomen xray -abdomen distention with hx of hypomotility -Continue home Reglan and colace -oil enema -poor po intake -PT -speech and swallow eval Severe malnutrition- most likely sercondary to esophageal dysmotitlity -poor po intake 2/2 Gi scleroderma/CREST -diet consult Prophylactic -Bowel regiment -DVT prophylaxis -PPI Visit type - Emergency Visit Emergency Visit: Yes ED Registration Date: 12/12/16 Care time: The patient presented to the Emergency Department on the above date and was hospitalized for further evaluation of their emergent condition. - New Patient This patient is new to me today: Yes Date on this admission: 01/12/17 - Critical Care Critical Care patient: Yes Total Critical Care Time (in minutes): 54 Critical Care Statement: The care of this patient involved high complexity decision making to prevent further life threatening deterioration of the patient 's condition and/or to evalute & treat vital organ system(s) failure or risk of failure.
[2016-12-13 08:57] LABS: MAGNESIUM 1.6 mg/dL (1.8-2.4)
[2016-12-13] MEDS: METOCLOPRAMIDE HCL INJECTION 10 MG/2 ML VIAL IVPB SCH ×2 (09:38→21:20)
[2016-12-13] MEDS: PANTOPRAZOLE SODIUM 100 ML IVPB SCH (09:38)
[2016-12-13] MEDS: ALBUTEROL SO4 2.5/IPRATROPIUM 0.5 INH SOL 3 ML VIAL.NEB. NEB SCH ×2 (10:42→21:54)
[2016-12-13 10:45] LABS: MCH 26.3 pg (25.7-33.7); MCHC 31.4 g/dl (32.0-36.0); MEAN CELL VOLUME 83.6 fl (80-96); MEAN PLT VOLUME 8.7 fl (7.5-11.1); PLATELET COUNT 206 K/MM3 (134-434); RDW 17.4 % (11.6-15.6); WHITE BLOOD COUNT 6.5 K/mm3 (4.0-10.0)
[2016-12-13] MEDS ORDERED: PNEUMOC 13-VAL CONJ-DIP CRM/PF 0.5 ML DISP.SYRIN IM ONE (12:00)
[2016-12-13 12:04] LABS: ALBUMIN 2.6 g/dl (3.4-5.0); ANION GAP 10 (8-16); BILIRUBIN,TOTAL 0.3 mg/dL (0.2-1.0); CALCIUM 7.9 mg/dL (8.5-10.1); CO2 27 mmol/L (21-32); CREATININE 0.9 mg/dL (0.55-1.02); GLUCOSE,RANDOM 68 mg/dL (74-106); SGOT/AST 31 U/L (15-37); SGPT/ALT 31 U/L (12-78); TOT PROT 6.1 g/dl (6.4-8.2)
[2016-12-13 12:05] LABS: ALK PHOS 45 U/L (45-117)
--- NOTE | 2016-12-13 12:20 | EKG ---
Test Reason : Blood Pressure : / mmHG Vent. Rate : 079 BPM Atrial Rate : 079 BPM P-R Int : 162 ms QRS Dur : 086 ms QT Int : 410 ms P-R-T Axes : 067 067 047 degrees QTc Int : 470 ms NORMAL SINUS RHYTHM NORMAL ECG WHEN COMPARED WITH ECG OF 27-SEP-2016 14:42, NO SIGNIFICANT CHANGE WAS FOUND Confirmed by OSMANY FRENCH MD ([id number]) on 12/13/2016 12:20:20 PM Referred By: Confirmed By:OSMANY FRENCH MD
--- NOTE | 2016-12-13 15:17 | PN ---
Teaching Attending Note Name of Resident: Lucy Rodriguez ATTENDING PHYSICIAN STATEMENT I saw and evaluated the patient. I reviewed the resident's note and discussed the case with the resident. I agree with the resident's findings and plan as documented. SUBJECTIVE: Patient seen and examined in the ICU. Now awake on AC mode of vent and able to follow commands. No pressors. ABG : hypercapnia due to substance ingestion/use (?) Intake & Output 12/10/16 12/11/16 12/12/16 12/13/16 23:59 23:59 23:59 23:59 Intake Total 250 910 Output Total 200 600 Balance 50 310 Weight 130 lb 106 lb 0.677 oz Last Vital Signs Temp Pulse Resp BP Pulse Ox 98.2 F 77 12 112/66 92 L 12/13/16 06:00 12/13/16 14:29 12/13/16 12:58 12/13/16 12:58 12/13/16 14:29 Active Medications Albuterol Sulfate (Ventolin 0.083% Nebulizer Soln -) 1 amp NEB Q4H PRN PRN Reason: SHORT OF BREATH/WHEEZING Albuterol/Ipratropium (Duoneb -) 1 amp NEB BID RAISSA Last Admin: 12/13/16 10:42 Dose: 1 amp Docusate Sodium (Colace -) 100 mg PO TID RAISSA Last Admin: 12/13/16 06:06 Dose: 100 mg Gabapentin (Neurontin Oral Liquid -) 800 mg PO TID RAISSA Last Admin: 12/13/16 06:13 Dose: 800 mg Sodium Chloride (Normal Saline -) 1,000 mls @ 100 mls/hr IV ASDIR RAISSA Last Admin: 12/12/16 23:04 Dose: 100 mls/hr Pantoprazole Sodium (Protonix 40mg Ivpb (Pre-Docked)) 100 mls @ 200 mls/hr IVPB DAILY RAISSA Last Admin: 12/13/16 09:38 Dose: 200 mls/hr Propofol (Diprivan -) 100 mls @ 1.769 mls/hr IVPB TITR RAISSA; 5 MCG/KG/MIN PRN Reason: Protocol Last Admin: 12/13/16 00:45 Dose: 1.769 mls/hr Fentanyl 500 mcg/ Dextrose 100 mls @ 10 mls/hr IJ TITR RAISSA PRN Reason: 50 MCG/HR Last Admin: 12/13/16 01:00 Dose: 10 mls/hr Lactated Ringer's (Lactated Ringers Solution) 1,000 mls @ 125 mls/hr IV ASDIR [facility] Last Admin: 12/13/16 01:45 Dose: 125 mls/hr Metoclopramide HCl (Reglan Injection -) 10 mg IVPB BID [facility] Last Admin: 12/13/16 09:38 Dose: 10 mg Constitutional: Yes: Intubated and awake Eyes: Yes: Other HENT: No: Atraumatic Neck: Yes: Trachea Midline Cardiovascular: Yes: S1, S2, Other (sinus on tele) Respiratory: Yes: Intubated, Mechanically Ventilated, scattered rhonchi Gastrointestinal: Yes: Distention, Hypoactive Bowel Sounds ...Rectal Exam: Yes: Deferred Renal/: Yes: Collier Present (yellow output) Extremities: Yes: Amputation (multiple bilateral distal phalanges amputated), Cool, Cyanosis, Delayed Capillary Refill Edema: No Peripheral Pulses WNL: (+2 bilateral pedal pulses) Integumentary: Yes: Laceration (left hand), Venous Stasis Changes (bilateral), Other (sacral nonblanchable redness) Neurological: Yes: Other (sedated) Labs: Laboratory Results - last 24 hr 12/12/16 12/12/16 12/12/16 20:30 20:30 20:50 WBC 5.5 RBC 3.71 Hgb 9.8 L Hct 30.9 L MCV 83.2 MCHC 31.9 L RDW 17.9 H D Plt Count 242 MPV 8.2 Neutrophils % 74.2 D Lymphocytes % 14.8 D Monocytes % 5.8 Eosinophils % 4.8 H Basophils % 0.4 INR Puncture Site ABG pH ABG pCO2 at Pt Temp ABG pO2 at Pt Temp ABG HCO3 ABG O2 Sat (Measured) ABG O2 Content ABG Base Excess Akash Test Carboxyhemoglobin Methemoglobin O2 Delivery Device Oxygen Flow Rate Vent Mode Vent Rate Mechanical Rate PEEP Pressure Support Vent Sodium Potassium Chloride Carbon Dioxide Anion Gap BUN Creatinine Creat Clearance w eGFR Random Glucose Calcium Phosphorus Magnesium Total Bilirubin AST ALT Alkaline Phosphatase Creatine Kinase CK-MB (CK-2) Troponin I Total Protein Albumin Beta HCG, Quant Urine Color Yellow Urine Appearance Clear Urine pH 5.0 Ur Specific [place] 1.016 Urine Protein 2+ H Urine Glucose (UA) Negative Urine Ketones Trace H Urine Blood Negative Urine Nitrite Negative Urine Bilirubin Negative Urine Urobilinogen 2.0 e.u/dl H Ur Leukocyte Esterase Negative Urine RBC 15 Urine WBC 19 Urine Bacteria Rare Hyaline Casts 30 Urine Mucus Few Opiates Screen Positive Methadone Screen Negative Barbiturate Screen Negative Phencyclidine Screen Negative Ur Amphetamines Screen Negative MDMA (Ecstasy) Screen Negative Benzodiazepines Screen Positive Cocaine Screen Negative U Marijuana (THC) Screen Positive Blood Type Antibody Screen 12/12/16 12/12/16 12/12/16 20:50 20:50 20:50 WBC RBC Hgb Hct MCV MCHC RDW Plt Count MPV Neutrophils % Lymphocytes % Monocytes % Eosinophils % Basophils % INR 1.37 H Puncture Site ABG pH ABG pCO2 at Pt Temp ABG pO2 at Pt Temp ABG HCO3 ABG O2 Sat (Measured) ABG O2 Content ABG Base Excess Akash Test Carboxyhemoglobin Methemoglobin O2 Delivery Device Oxygen Flow Rate Vent Mode Vent Rate Mechanical Rate PEEP Pressure Support Vent Sodium 139 Potassium 3.6 Chloride 100 Carbon Dioxide 22 D Anion Gap 17 H BUN 15 Creatinine 1.4 H D Creat Clearance w eGFR 39.49 Random Glucose 110 H D Calcium 8.3 L Phosphorus Magnesium Total Bilirubin 0.3 AST 47 H D ALT 35 D Alkaline Phosphatase 52 D Creatine Kinase 208 H D CK-MB (CK-2) 3.524 Troponin I < 0.02 Total Protein 6.6 Albumin 2.8 L Beta HCG, Quant Urine Color Urine Appearance Urine pH Ur Specific [place] Urine Protein Urine Glucose (UA) Urine Ketones Urine Blood Urine Nitrite Urine Bilirubin Urine Urobilinogen Ur Leukocyte Esterase Urine RBC Urine WBC Urine Bacteria Hyaline Casts Urine Mucus Opiates Screen Methadone Screen Barbiturate Screen Phencyclidine Screen Ur Amphetamines Screen MDMA (Ecstasy) Screen Benzodiazepines Screen Cocaine Screen U Marijuana (THC) Screen Blood Type O POSITIVE Antibody Screen Negative 12/12/16 12/12/16 12/13/16 23:00 23:00 07:20 WBC RBC Hgb Hct MCV MCHC RDW Plt Count MPV Neutrophils % Lymphocytes % Monocytes % Eosinophils % Basophils % INR Puncture Site Right radial Right radial ABG pH 7.32 L 7.35 ABG pCO2 at Pt Temp 51.5 H 45.8 H ABG pO2 at Pt Temp 411.0 H* 95.7 D ABG HCO3 25.7 24.8 ABG O2 Sat (Measured) 98.0 95.6 ABG O2 Content 13.2 L 11.8 L ABG Base Excess -0.1 -0.3 Akash Test Positive Positive Carboxyhemoglobin 2.3 H Methemoglobin 0.3 L O2 Delivery Device Mech vent Vent Oxygen Flow Rate 100% 40% Vent Mode A/c A/c Vent Rate 14 15 Mechanical Rate Yes Y PEEP 5.0 5.0 Pressure Support Vent 400 400 Sodium Potassium Chloride Carbon Dioxide Anion Gap BUN Creatinine Creat Clearance w eGFR Random Glucose Calcium Phosphorus Magnesium Total Bilirubin AST ALT Alkaline Phosphatase Creatine Kinase CK-MB (CK-2) Troponin I Total Protein Albumin Beta HCG, Quant Urine Color Urine Appearance Urine pH Ur Specific [place] Urine Protein Urine Glucose (UA) Urine Ketones Urine Blood Urine Nitrite Urine Bilirubin Urine Urobilinogen Ur Leukocyte Esterase Urine RBC Urine WBC Urine Bacteria Hyaline Casts Urine Mucus Opiates Screen Methadone Screen Barbiturate Screen Phencyclidine Screen Ur Amphetamines Screen MDMA (Ecstasy) Screen Benzodiazepines Screen Cocaine Screen U Marijuana (THC) Screen Blood Type Antibody Screen 12/13/16 12/13/16 12/13/16 07:50 07:50 07:50 WBC 6.5 RBC 3.50 L Hgb 9.2 L Hct 29.3 L MCV 83.6 MCHC 31.4 L RDW 17.4 H Plt Count 206 MPV 8.7 Neutrophils % Lymphocytes % Monocytes % Eosinophils % Basophils % INR Puncture Site ABG pH ABG pCO2 at Pt Temp ABG pO2 at Pt Temp ABG HCO3 ABG O2 Sat (Measured) ABG O2 Content ABG Base Excess Akash Test Carboxyhemoglobin Methemoglobin O2 Delivery Device Oxygen Flow Rate Vent Mode Vent Rate Mechanical Rate PEEP Pressure Support Vent Sodium 143 Cancelled Potassium 3.7 Cancelled Chloride 106 Cancelled Carbon Dioxide 27 D Cancelled Anion Gap 10 Cancelled BUN 15 Cancelled Creatinine 0.9 D Cancelled Creat Clearance w eGFR > 60 Cancelled Random Glucose 68 L D Cancelled Calcium 7.9 L Cancelled Phosphorus 3.0 Magnesium 1.6 L Total Bilirubin 0.3 Cancelled AST 31 D Cancelled ALT 31 Cancelled Alkaline Phosphatase 45 Cancelled Creatine Kinase CK-MB (CK-2) Troponin I Total Protein 6.1 L Cancelled Albumin 2.6 L Cancelled Beta HCG, Quant < 1.0 Urine Color Urine Appearance Urine pH Ur Specific [place] Urine Protein Urine Glucose (UA) Urine Ketones Urine Blood Urine Nitrite Urine Bilirubin Urine Urobilinogen Ur Leukocyte Esterase Urine RBC Urine WBC Urine Bacteria Hyaline Casts Urine Mucus Opiates Screen Methadone Screen Barbiturate Screen Phencyclidine Screen Ur Amphetamines Screen MDMA (Ecstasy) Screen Benzodiazepines Screen Cocaine Screen U Marijuana (THC) Screen Blood Type Antibody Screen Assessment/Plan Acute Hypercapneic Respiratory Failure AE COPD Possible ILD CHF by history CAD HLD Thyroid disease Scleroderma/CREST syndrome with associated gastric hypomotility Endometriosis Pain medication dependance Iron deficiency anemia MDR klebsiella and e. coli in the sputum with multiple admissions for AMS/ respiratory infections Recurrent BLE cellulitis. Wean trials for extubation Decrease IVF VTE prophylaxis Monitor off ABX for now End tidal CO2 monitoring BD TX Dr Owens CCTime 35"
[2016-12-13] MEDS: SODIUM CHLORIDE 1,000 ML IV SCH (17:00)
--- NOTE | 2016-12-13 18:48 | PN ---
Progress Note, ETHANOL MAINTENANCE MECHANIC - Note Progress Note: Consult received 16:30. Chart review completed. Pt is 51 year old female recently extubated earlier this afternoon. Pt presents with advanced COPD asthma, gastroparesis hyperlipidemia, scleroderma. Seen by ETHANOL MAINTENANCE MECHANIC for swallow eval to rule out dysphagia. Unable to perform examination for 24 hours post extubation. Will evaluate at another time. Results discussed with discharge door operatorFRED Calzada and to pcp via chart.
--- NOTE | 2016-12-13 20:20 | HP ---
Admitting History and Physical - Primary Care Physician PCP: Venkat Gonzalez - Admission Chief Complaint: Respiratory Failure History of Present Illness: Pt. was found with agonal breathing at home, intubated on the field. In ER pt.' s urine tested positive for Benzos, Opiates, Marijuana. Pt. was seen and examinated in ICU this AM; pt. intubated, waking up for trial of extubation- ICU team in attendance. History Source: Significant Other (ER attending), Medical Record - Past Medical History FINANCIAL SERVICES ASSOCIATE: Yes: Peripheral Neuropathy Cardiovascular: Yes: Other (Raynaud's w/ multiple upper extremity digit amputations. Normal coronaries on cardiac cath and EF 65% with mild AI, trace [place] [facility] [place] Pulmonary: Yes: Asthma, COPD, Pneumonia, Other (lung mass of undetermined etiology) Gastrointestinal: Yes: Constipation, Diverticulitis, Diverticulosis (small bowel diverticular perforation, scleroderma affecting the esophagus, Bonner's esophagus, Schatzki ring,GAVE syndrome, antral ulcer, gastroparesis related to scleroderma), GERD (with long segment Bonner's esophagus and patent Schatzki ring), Peptic Ulcer Disease (antral ulcer ), Other (Bonner's esophagus, GERD, Schatzki ring, perforation of small bowel diverticulum, antral ulcer, scleroderma causing esophageal dysmotility and gastroparesis) Renal/: Yes: Renal Failure ...: No Heme/Onc: Yes: Anemia Infectious Disease: Yes: MRSA (bursitis) Psych: Yes: Addictions (marijuana,tobacco and prescription narcotics) Musculoskeletal: Yes: Chronic low back pain, Other (has spinal stimulator) Rheumatology: Yes: Vasculitis, Other (Scleroderma, Raynauds and CREST syndrome) Endocrine: Yes: Hypothyroidism, Other (Malnutrition, osteoporosis) Dermatology: Yes: Cellulitis - Past Surgical History Past Surgical History: Yes: Appendectomy, Colonoscopy, Upper Endoscopy - Smoking History Smoking history: Former smoker Have you smoked in the past 12 months: Yes Aproximately how many cigarettes per day: 10 If you are a former smoker, when did you quit?: 2016 - 4 months ago - Alcohol/Substance Use Hx Alcohol Use: No History of Substance Use: reports: Marijuana (quit 1 month ago), Prescription - Social History ADL: Independent Occupation: disabled History of Recent Travel: No Home Medications - Allergies Allergies/Adverse Reactions: Allergies Allergy/AdvReac Type Severity Reaction Status Date / Time Penicillins Allergy Severe Hives Verified 12/12/16 20:47 tomato AdvReac Uncoded 12/12/16 20:47 - Home Medications Home Medications: Ambulatory Orders Duloxetine HCl [Cymbalta -] 60 mg PO DAILY #30 capsule. 03/10/15 Albuterol 0.083% Nebulizer Cinthya [Ventolin 0.083% Nebulizer Soln -] 1 amp NEB Q4H PRN #1 amp 04/11/16 Aspirin [ASA -] 81 mg PO DAILY tab.chew 04/11/16 Budesonide/Formeterol Fumarate [SYMBICORT 80/4.5mcg -] 2 puff IH BID #1 inhaler 04/11/16 Tiotropium [place] [Spiriva] 1 puff IH DAILY #1 inh 04/27/16 Docusate Sodium [Colace -] 100 mg PO TID PRN 05/27/16 Polyethylene Glycol 3350 [Miralax 119 gm Btl -] 17 gm PO DAILY PRN 05/27/16 Ranitidine [Zantac -] 150 mg PO DAILY 05/27/16 Gabapentin [Neurontin -] 800 mg PO TID capsule 05/28/16 Aclidinium [place] [Tudorza -] 1 puff IH DAILY inhaler 07/20/16 Lactobacillus Acidophilus [Bacid -] 1 each PO DAILY #30 capsule 07/20/16 Metoclopramide HCl [Reglan -] 10 mg PO ACHS tablet 07/20/16 Acetaminophen [Tylenol .Regular Strength -] 650 mg PO Q6H PRN #0 tablet Hydroxychloroquine So4 [Plaquenil -] 200 mg PO BID tablet 07/31/16 Pantoprazole Sodium [Protonix -] 40 mg PO BID tablet.ec 07/31/16 Cyclobenzaprine HCl [Flexeril -] 5 mg PO BID PRN #20 tablet 09/16/16 Lidocaine 5% Patch [Lidoderm -] 2 patch TP DAILY #60 patch 09/16/16 Oxycodone Sr [Oxycontin] 80 mg PO BID #60 tab.er.12h MDD 2 10/01/16 Family Disease History - Family Disease History Family Disease History: Diabetes: Father (HCV), Heart Disease: Father, Mother, Other: Father, Brother (HIV) Review of Systems Unable to obtain ROS, reason: limited Findings/Remarks: ROS is limited as pt. still sedated, intubated. - Review of Systems Constitutional: denies: Fever HENT: denies: Nasal Congestion, Throat Pain Cardiovascular: denies: Chest Pain, Palpitations, Shortness of Breath Respiratory: denies: Cough, SOB Gastrointestinal: denies: Abdominal Pain, Diarrhea, Vomiting Physical Examination Vital Signs: Vital Signs Temperature 99 F 12/13/16 18:00 Pulse Rate 74 12/13/16 18:00 Respiratory Rate 18 12/13/16 18:00 Blood Pressure 110/64 12/13/16 18:00 O2 Sat by Pulse Oximetry (%) 92 L 12/13/16 14:29 Findings/Remarks: Limited as pt cannot participated fully- secondary to sedation. Constitutional: Yes: No Distress, Calm, Other (intubated, sedated, waking up) Eyes: Yes: Conjunctiva Clear Neck: Yes: Supple Cardiovascular: Yes: Regular Rate and Rhythm, S1, S2 Respiratory: Yes: Regular, Rhonchi Gastrointestinal: Yes: Normal Bowel Sounds, Soft. No: Tenderness ...Rectal Exam: Yes: Deferred Breast(s): Yes: Other (deferred) Musculoskeletal: No: Joint Stiffness, Joint Swelling Extremities: No: Cold, Cool, Cyanosis Edema: No Integumentary: No: Bruising, Jaundice Neurological: Yes: Other (sedated) Labs: CBC, BMP 12/13/16 07:50 12/13/16 07:50 Imaging - Results Chest X-ray: Report Reviewed, Image Reviewed Problem List - Problems (1) Acute respiratory failure Assessment/Plan: Possible secondary to drug over dose. Trial of extubation this AM- per ICU team Swallow evaluation today. Code(s): J96.00 - ACUTE RESPIRATORY FAILURE, UNSP W HYPOXIA OR HYPERCAPNIA Qualifiers: Respiratory failure complication: hypercapnia Qualified Code(s): J96.02 - Acute respiratory failure with hypercapnia (2) Interstitial lung disease Assessment/Plan: might benefit from steroids Code(s): J84.9 - INTERSTITIAL PULMONARY DISEASE, UNSPECIFIED (3) CREST syndrome Code(s): M34.1 - CR(E)ST SYNDROME (4) Raynauds disease Code(s): I73.00 - RAYNAUD'S SYNDROME WITHOUT GANGRENE (5) Scleroderma Code(s): M34.9 - SYSTEMIC SCLEROSIS, UNSPECIFIED (6) Esophageal dysmotility Code(s): K22.4 - DYSKINESIA OF ESOPHAGUS (7) Gastroparesis Code(s): K31.84 - GASTROPARESIS (8) COPD (chronic obstructive pulmonary disease) Code(s): J44.9 - CHRONIC OBSTRUCTIVE PULMONARY DISEASE, UNSPECIFIED (9) Anemia Code(s): D64.9 - ANEMIA, UNSPECIFIED Qualifiers: Anemia type: iron deficiency Iron deficiency anemia type: unspecified iron deficiency Qualified Code(s): D50.9 - Iron deficiency anemia, unspecified (10) Chronic back pain Code(s): M54.9 - DORSALGIA, UNSPECIFIED G89.29 - OTHER CHRONIC PAIN (11) Chronic use of opiate drugs therapeutic purposes Assessment/Plan: on hold for now Code(s): Z79.899 - OTHER SENIOR LIVING (CURRENT) DRUG THERAPY Assessment/Plan Case was d/w Dr. Ochoa. Trial of extubation. GI prophylaxis DVT prophylaxis Aspiration precautions until evaluated by Swallow specialist. Case was d/w pt.'s nurse at bedside. AM labs. Time spent for managing pt.'s care: over 75 minutes
[2016-12-14 06:02] LABS: MCH 26.2 pg (25.7-33.7); MCHC 31.9 g/dl (32.0-36.0); MEAN CELL VOLUME 81.9 fl (80-96); MEAN PLT VOLUME 8.4 fl (7.5-11.1); PLATELET COUNT 221 K/MM3 (134-434); RDW 17.7 % (11.6-15.6); WHITE BLOOD COUNT 6.1 K/mm3 (4.0-10.0)
[2016-12-14] MEDS: GABAPENTIN 250 MG/5 ML ORAL SOLUTION, 470 ML BOTTLE PO SCH ×3 (06:34→23:53)
[2016-12-14 06:35] LABS: ALBUMIN 2.1 g/dl (3.4-5.0); ANION GAP 12 (8-16); CALCIUM 7.9 mg/dL (8.5-10.1); CO2 24 mmol/L (21-32); CREATININE 0.7 mg/dL (0.55-1.02); GLUCOSE,RANDOM 50 mg/dL (74-106); SGOT/AST 22 U/L (15-37); SGPT/ALT 22 U/L (12-78)
[2016-12-14] MEDS: DOCUSATE SODIUM 100 MG CAPSULE (FP) PO SCH ×3 (06:35→23:53)
[2016-12-14] MEDS: PROPOFOL 100 ML IVPB SCH (06:35)
[2016-12-14] MEDS: FENTANYL INJECTION 500 MCG in DEXTROSE 5%-WATER - 90 ML IJ SCH (06:35)
[2016-12-14 06:41] LABS: ALK PHOS 41 U/L (45-117); BILIRUBIN,TOTAL 0.4 mg/dL (0.2-1.0); TOT PROT 5.3 g/dl (6.4-8.2)
--- NOTE | 2016-12-14 07:30 | PN ---
Physical Exam: SUBJECTIVE: Patient seen and examined at bed side in ICU. extubated yesterday, saturating well, in no acute stress. no SOB, reports nonproductive cough. denies fevers, chills, N/V, CP. OBJECTIVE: Vital Signs Period Temp Pulse Resp BP Sys/Sotelo Pulse Ox Last 24 Hr 98.2 F-99 F 66-89 10-21 103-125/64-84 92-98 GENERAL: The patient is awake, alert, and fully oriented, in no acute distress. HEAD: Normal with no signs of trauma. EYES: PERRL, extraocular movements intact, sclera anicteric, conjunctiva clear. No ptosis. ENT: Ears normal, nares patent, oropharynx clear without exudates, moist mucous membranes. NECK: Trachea midline, full range of motion, supple. LUNGS: Breath sounds equal, scattered rhonchi, no accessory muscle use. HEART: Regular rate and rhythm, S1, S2 without murmur, rub or gallop. ABDOMEN: Soft, nontender, nondistended, normoactive bowel sounds, no guarding, no rebound, no hepatosplenomegaly, no masses. EXTREMITIES: 2+ pulses, warm, well-perfused, + edema. NEUROLOGICAL: Cranial nerves II through XII grossly intact. Normal speech, gait not observed. PSYCH: Normal mood, normal affect. SKIN: Warm, dry, normal turgor, no rashes or lesions noted Laboratory Results - last 24 hr 12/13/16 12/13/16 12/13/16 07:20 07:50 07:50 WBC RBC Hgb Hct MCV MCHC RDW Plt Count MPV Puncture Site Right radial ABG pH 7.35 ABG pCO2 at Pt Temp 45.8 H ABG pO2 at Pt Temp 95.7 D ABG HCO3 24.8 ABG O2 Sat (Measured) 95.6 ABG O2 Content 11.8 L ABG Base Excess -0.3 Akash Test Positive O2 Delivery Device Vent Oxygen Flow Rate 40% Vent Mode A/c Vent Rate 15 Mechanical Rate Y PEEP 5.0 Pressure Support Vent 400 Sodium 143 Potassium 3.7 Chloride 106 Carbon Dioxide 27 D Anion Gap 10 BUN 15 Creatinine 0.9 D Creat Clearance w eGFR > 60 Random Glucose 68 L D Calcium 7.9 L Phosphorus 3.0 Magnesium 1.6 L Iron 18 L Total Bilirubin 0.3 AST 31 D ALT 31 Alkaline Phosphatase 45 Total Protein 6.1 L Albumin 2.6 L Beta HCG, Quant < 1.0 12/13/16 12/13/16 12/14/16 07:50 07:50 05:15 WBC 6.5 6.1 RBC 3.50 L 3.77 Hgb 9.2 L 9.9 L Hct 29.3 L 30.9 L MCV 83.6 81.9 MCHC 31.4 L 31.9 L RDW 17.4 H 17.7 H Plt Count 206 221 MPV 8.7 8.4 Puncture Site ABG pH ABG pCO2 at Pt Temp ABG pO2 at Pt Temp ABG HCO3 ABG O2 Sat (Measured) ABG O2 Content ABG Base Excess Akash Test O2 Delivery Device Oxygen Flow Rate Vent Mode Vent Rate Mechanical Rate PEEP Pressure Support Vent Sodium Cancelled Potassium Cancelled Chloride Cancelled Carbon Dioxide Cancelled Anion Gap Cancelled BUN Cancelled Creatinine Cancelled Creat Clearance w eGFR Cancelled Random Glucose Cancelled Calcium Cancelled Phosphorus Magnesium Iron Total Bilirubin Cancelled AST Cancelled ALT Cancelled Alkaline Phosphatase Cancelled Total Protein Cancelled Albumin Cancelled Beta HCG, Quant 12/14/16 05:15 WBC RBC Hgb Hct MCV MCHC RDW Plt Count MPV Puncture Site ABG pH ABG pCO2 at Pt Temp ABG pO2 at Pt Temp ABG HCO3 ABG O2 Sat (Measured) ABG O2 Content ABG Base Excess Akash Test O2 Delivery Device Oxygen Flow Rate Vent Mode Vent Rate Mechanical Rate PEEP Pressure Support Vent Sodium 143 Potassium 3.8 Chloride 107 Carbon Dioxide 24 Anion Gap 12 BUN 13 Creatinine 0.7 D Creat Clearance w eGFR > 60 Random Glucose 50 L D Calcium 7.9 L Phosphorus Magnesium Iron Total Bilirubin 0.4 D AST 22 D ALT 22 D Alkaline Phosphatase 41 L Total Protein 5.3 L Albumin 2.1 L Beta HCG, Quant Active Medications Generic Name Dose Route Start Last Admin Trade Name Freq PRN Reason Stop Dose Admin Albuterol Sulfate 1 amp 12/13/16 00:58 Ventolin 0.083% Nebulizer Soln - NEB Q4H PRN SHORT OF BREATH/WHEEZING Albuterol/Ipratropium 1 amp 12/13/16 10:00 12/13/16 21:54 Duoneb - NEB 1 amp BID RAISSA Administration Docusate Sodium 100 mg 12/13/16 06:00 12/14/16 06:35 Colace - PO 100 mg TID RAISSA Administration Gabapentin 400 mg 12/13/16 17:50 12/14/16 06:34 Neurontin Oral Liquid - PO 400 mg TID RAISSA Administration Pantoprazole Sodium 100 mls @ 200 mls/hr 12/13/16 10:00 12/13/16 09:38 Protonix 40mg Ivpb (Pre-Docked) IVPB 200 mls/hr DAILY RAISSA Administration Propofol 100 mls @ 1.769 mls/hr 12/13/16 00:45 12/14/16 06:35 Diprivan - IVPB Not Given TITR RAISSA Protocol 5 MCG/KG/MIN Fentanyl 500 mcg/ Dextrose 100 mls @ 10 mls/hr 12/13/16 01:00 12/14/16 06:35 IJ Not Given TITR RAISSA 50 MCG/HR Sodium Chloride 1,000 mls @ 75 mls/hr 12/13/16 16:12 12/13/16 17:00 Normal Saline - IV 75 mls/hr ASDIR RAISSA Administration Metoclopramide HCl 10 mg 12/13/16 10:00 12/13/16 21:20 Reglan Injection - IVPB 10 mg BID RAISSA Administration ASSESSMENT/PLAN: 51yr old woman with PMHx including COPD, chf, CAD, HLD, thyroid disease, 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 coli in the sputum with multiple admissions for AMS/ respiratory infections and most recently from 09/27 - 10/01 for recurrent BLE cellulitis. was unresponsiveness likely a combination of over medication in the setting of COPD, s/p extubated today Pulm: Acute Hypercapneic Respiratory Failure, s/p extubated yesterday, tolerating venti mask -Venti mask -SBT as able -Nebulizers standing and prn -f/u repeat chest xray - taper FiO2 to keep SpO2 >90% - inhaled bronchodilators ID: no fever, no leukocytes, MDR klebsiella and e. coli in the sputum with multiple admissions for AMS/respiratory infections -f/u cultures -Consult -Monitor off antibiotics for now Neuro -Consult -inc Gabapentin back to home dose. Pain management -Pt with significant opioid tolerance, would recommend continuing out pt dosages with close monitoring for breakthrough pain -consulted Dr. Reza for pain management consult. Immunology -Consult Renal -decreased -Replete electrolytes prn -Decrease IVF Cardiac -f/u enzymes -Consider repeat ECHO GI: Scleroderma/CREST syndrome with associated gastric hypomotility -Continue home Reglan and colace -oil enema -poor po intake -PT -speech and swallow eval Severe malnutrition- most likely secondary to esophageal dysmotitlity -poor po intake 2/2 Gi scleroderma/CREST -diet consult Prophylactic -Bowel regiment -DVT prophylaxis -PPI Visit type - Emergency Visit Emergency Visit: Yes ED Registration Date: 12/12/16 Care time: The patient presented to the Emergency Department on the above date and was hospitalized for further evaluation of their emergent condition. - New Patient This patient is new to me today: No - Critical Care Critical Care patient: Yes Total Critical Care Time (in minutes): 46 Critical Care Statement: The care of this patient involved high complexity decision making to prevent further life threatening deterioration of the patient 's condition and/or to evalute & treat vital organ system(s) failure or risk of failure.
[2016-12-14 09:22] LABS: MAGNESIUM 1.3 mg/dL (1.8-2.4); PHOSPHOROUS 3.4 mg/dL (2.5-4.9)
[2016-12-14] MEDS: METOCLOPRAMIDE HCL INJECTION 10 MG/2 ML VIAL IVPB SCH ×2 (10:22→23:54)
[2016-12-14] MEDS: PANTOPRAZOLE SODIUM 100 ML IVPB SCH (10:22)
[2016-12-14] MEDS: ALBUTEROL SO4 2.5/IPRATROPIUM 0.5 INH SOL 3 ML VIAL.NEB. NEB SCH ×2 (10:35→22:00)
--- NOTE | 2016-12-14 12:07 | PN ---
Progress Note (short form) - Note Progress Note: ID Consult dictated S/P respiratory failure Possible drug overdose Abscess, L thumb, possible sepsis PCN allergy Scleroderma/ CREST syndrome Hx ESBL resp tract colonization, HX MRSA Obtain BC x2 Surgical evaluation Empiric vancomcyn/ cefepime Critical care time 40min
--- NOTE | 2016-12-14 12:22 | CONSULT ---
Admitting History and Physical - Past Medical History BASTING CLEANER: Yes: Peripheral Neuropathy Cardiovascular: Yes: Other (Raynaud's w/ multiple upper extremity digit amputations. Normal coronaries on cardiac cath and EF 65% with mild AI, trace MR and TR on echo @ [facility] [place] 03/31) Pulmonary: Yes: Asthma, COPD, Pneumonia, Other (lung mass of undetermined etiology) Gastrointestinal: Yes: Constipation, Diverticulitis, Diverticulosis (small bowel diverticular perforation, scleroderma affecting the esophagus, Bonner's esophagus, Schatzki ring,GAVE syndrome, antral ulcer, gastroparesis related to scleroderma), GERD (with long segment Bonner's esophagus and patent Schatzki ring), Peptic Ulcer Disease (antral ulcer ), Other (Bonner's esophagus, GERD, Schatzki ring, perforation of small bowel diverticulum, antral ulcer, scleroderma causing esophageal dysmotility and gastroparesis) Renal/: Yes: Renal Failure ...: No Heme/Onc: Yes: Anemia Infectious Disease: Yes: MRSA (bursitis) Psych: Yes: Addictions (marijuana,tobacco and prescription narcotics) Musculoskeletal: Yes: Chronic low back pain, Other (has spinal stimulator) Rheumatology: Yes: Vasculitis, Other (Scleroderma, Raynauds and CREST syndrome) Endocrine: Yes: Hypothyroidism, Other (Malnutrition, osteoporosis) Dermatology: Yes: Cellulitis - Past Surgical History Past Surgical History: Yes: Appendectomy, Colonoscopy, Upper Endoscopy - Smoking History Smoking history: Former smoker Have you smoked in the past 12 months: Yes Aproximately how many cigarettes per day: 10 If you are a former smoker, when did you quit?: 2016 - 4 months ago - Alcohol/Substance Use Hx Alcohol Use: No History of Substance Use: reports: Marijuana (quit 1 month ago), Prescription - Social History ADL: Independent Occupation: disabled History of Recent Travel: No History - Admission Reason For Visit: TRANSIENT ALTERATION OF AWARENESS - Hearing Hearing: Normal Hearing Aide: No With Patient: No Speech Evaluation - Communication Primary Language: ARMENIAN Communication: Yes: Within Normal Limits Oral Expression Ability: Yes: No Impairment - Speech Production Able to Make Needs Known: Yes: WNL Intelligibility: Yes: WNL - Speech Characteristics Voice Loudness: Normal Voice Pitch: Yes: Normal Voice Phonatory-based Quality: Yes: Normal Speech Pattern: Normal Nasal Resonance: Normal Articulation: Yes: Precise Rate of Speech: Intact Voice Comment: Vocal quality, pitch and intensity is witin normal limits - Language/Auditory Comprehension Follows: Yes: 1 Stage Simple Commands (WFL), 2 Stage Simple Commands (WFL), Complex Commands (WFL) Observation: Able to respond to yes/no queries: Yes, Yes/No Confusion: No, Comprehends Conversational Speech: Yes, Benefits from Slow Speech: No (Not needed), Benefits from Repetiton: No (Not needed), Benefits from Increased Volume of Speech: No (Not needed) - Language/Verbal Expression Able to Respond to Simple Queries: Yes: WNL Able to Communicate Wants and Needs: Yes: WNL Functional Communication Status: Yes: WNL Attention: Yes: Intact - Memory/Perception jail Memory: Yes: WNL Short Term Memory: Yes: WNL - Swallow Evaluation/Bedside Assessment Current Nutritional Intake: NPO (except meds this a.m.) Oral Secretions: Yes: WFL Tracheostomy Present: No Patient on Ventilator: No Dentition: Yes: Adequate (top. worn bottom incisors and molars but able to chew without difficulty) Facial Symmetry at Rest: Symmetrical Facial Symmetry on Retraction: Symmetrical Facial Movement: Controlled Sensation: Normal Facial Comment: WFL for speech and swallowing purposes. Jaw Position: Closed at Rest Against Resistance Opening: Normal Against Resistance Closing: Normal Pucker Lips: Normal Smile: Normal Lips, Comment: WFL for speech and swallowing purposes. Lingual Movement: Normal Lingual Speed of Movement: Normal Lingual Movement Strgth Against Opposition: Normal Lingual Movement Characteristics: Normal Lingual Comment: WFL for speech and swallowing purposes. Soft Palate Description: Normal Color, Normal Arch Hard Palate Description: Normal Color, Low Arch Gag Reflex: Strong Bite Reflex: Present Velopharyngeal Movement: Normal Laryngeal Elevation: WFL Laryngeal Movement: Able to Palpate Needs Assistance: No Rate of Intake: WFL Bolus Size: WFL Labial Seal: WFL Chewing: WFL A-P Transit: WFL Pocketing: None Timing of Swallow: WFL Odynophagia: Oral Coughing/Throat Clear: No Change in Voice: No Other Findings/Remarks: 51 year old female seen at bedside for swallow eval to rule out dysphagia. Pt recently extubated, verbal A&Ox3, cooperative. PHMX includes advanced COPD, asthma, recurrence PNA, Raynaud's w/ multiple upper extremity digit amputations , gastroparesis, hyperlipidemia, scleroderma. Nasal canula in place. Current diet: NPO except medication in this a.m. Pt given po trials of pureed, mech soft and regular solids with minimal assistance revealed good acceptance, adequate mastication and bolus transport. Pharyngeal swallow appears timely with no coughing,voicing or changes in respiration. Pt given po trial of ice chips by spoon and thin liquids via cup and straw offering minimal assistance revealed with good acceptance, adequate labial containment bolus control and transport. Pharyngeal swallow appears timely with no coughing,voicing or changes in respiration. Recommendations - Speech Evaluation, Impression/Plan Impression: 51 year old female presents with good receptive and expression language skills. Dysphagia examination revealed swallow function to be WNL with no s/s of aspiration at this time. 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 Short Term Goals: Tolerate regular solids and thin liquids without s/s of aspiration. - Dysphagia Impressions/Plan Swallowing Skills: WFL (at this time) Dysphagia Impressions: No Impairment Dysphagia Treatment Plan: Safe Rate, Elevate HOB during feed, Other (Encourage thorough chewing.) Dysphagia Evaluation Summary: Pt is able to tolerate pureed, mech soft, regular solids and thin liquids without s/s of aspiration at this time. Recommendations : regular solids with this liquids as tolerated. Results given verbally to charge entry clerk Elsi and dietitian verbally and to pcp via chart. - Recommendations Diet Consistency: Regular Medication Administration: Whole with water Liquids: Thin Liquids
--- NOTE | 2016-12-14 12:28 | PN ---
Teaching Attending Note Name of Resident: Lucy Rodriguez ATTENDING PHYSICIAN STATEMENT I saw and evaluated the patient. I reviewed the resident's note and discussed the case with the resident. I agree with the resident's findings and plan as documented. SUBJECTIVE: Pt seen and examined in the ICU. Extubated yesterday without incident. Denies shortness of breath. Mild nonproductive cough. No fevers or chills. OBJECTIVE: Last Vital Signs Temp Pulse Resp BP Pulse Ox 99 F 86 12 104/68 96 12/14/16 10:49 12/14/16 12:09 12/14/16 12:09 12/14/16 12:09 12/14/16 11:36 Intake & Output 12/11/16 12/12/16 12/13/16 12/14/16 23:59 23:59 23:59 23:59 Intake Total 250 960 900 Output Total 385 805 6646 Balance 50 360 -200 Weight 130 lb 106 lb 0.677 oz Gen: NAD at rest Heart: RRR Lung: scattered rhonchi Abd: soft, nontender Ext: + edema CBC, BMP 12/14/16 05:15 12/14/16 05:15 Active Medications Albuterol Sulfate (Ventolin 0.083% Nebulizer Soln -) 1 amp NEB Q4H PRN PRN Reason: SHORT OF BREATH/WHEEZING Albuterol/Ipratropium (Duoneb -) 1 amp NEB BID RAISSA Last Admin: 12/14/16 10:35 Dose: 1 amp Cefepime HCl (Maxipime 1gm Ivpb Pre-Docked) 1 gm IVPB Q8H-IV RAISSA PRN Reason: Protocol Docusate Sodium (Colace -) 100 mg PO TID RAISSA Last Admin: 12/14/16 06:35 Dose: 100 mg Gabapentin (Neurontin Oral Liquid -) 400 mg PO TID RAISSA Last Admin: 12/14/16 06:34 Dose: 400 mg Pantoprazole Sodium (Protonix 40mg Ivpb (Pre-Docked)) 100 mls @ 200 mls/hr IVPB DAILY RAISSA Last Admin: 12/14/16 10:22 Dose: 200 mls/hr Propofol (Diprivan -) 100 mls @ 1.769 mls/hr IVPB TITR RAISSA; 5 MCG/KG/MIN PRN Reason: Protocol Last Admin: 12/14/16 06:35 Dose: Not Given Fentanyl 500 mcg/ Dextrose 100 mls @ 10 mls/hr IJ TITR RAISSA PRN Reason: 50 MCG/HR Last Admin: 12/14/16 06:35 Dose: Not Given Sodium Chloride (Normal Saline -) 1,000 mls @ 75 mls/hr IV ASDIR RAISSA Last Admin: 12/13/16 17:00 Dose: 75 mls/hr Vancomycin HCl (Vancomycin (Pre-Docked)) 250 mls @ 200 mls/hr IVPB BID@0100, 1300 [facility] Magnesium Oxide (Mag-Ox -) 400 mg PO Q4H [facility] Stop: 12/14/16 16:01 Metoclopramide HCl (Reglan Injection -) 10 mg IVPB BID [facility] Last Admin: 12/14/16 10:22 Dose: 10 mg ASSESSMENT AND PLAN: s/p Acute Hypercapneic Respiratory Failure ?Drug Overdose Scleroderma/CREST syndome COPD CAD CHF Hyperlipidemia - taper FiO2 to keep SpO2 >90% - inhaled bronchodilators - minimize sedatives - can d/c antibiotics if cultures negative - aspiration precautions - DVT prophylaxis
[2016-12-14] MEDS: VANCOMYCIN 1 GRAM (PRE-DOCKED) 250 ML IVPB SCH (13:31)
[2016-12-14] MEDS: CEFEPIME 1 GM/100 ML BAG PRE-DOCKED IVPB SCH ×2 (13:31→18:07)
[2016-12-14] MEDS: MAGNESIUM OXIDE 400 MG TABLET (FP) PO SCH ×2 (13:32→17:00)
--- NOTE | 2016-12-14 14:02 | CONS ---
DATE OF CONSULTATION: DATE OF DICTATION: 12/14/2016 HISTORY OF PRESENT ILLNESS: The patient is a 51-year-old female with a history of scleroderma, CREST syndrome, chronic interstitial lung disease, evaluated for sepsis. The patient was brought in by ambulance from home after she was found to be unresponsive with agonal breathing. The patient was intubated by EMS and brought to the emergency room. She was admitted to the intensive care unit. Chest x-ray showed increased markings at the bases bilaterally. She remained intubated in the intensive care unit. She was afebrile with a normal white blood cell count. Patient was successfully extubated today. A urine toxicology screen done in the emergency room was positive for benzodiazepines, opiates, and marijuana. She was noted today to have a fluctuant swelling on the palmar aspect of the left thumb as well as erythema involving the paronychial area. She was also noted to have erythema of the distal left 5th digit. 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 She denies any recent febrile illness or shaking chills. She denies any traumatic injury to her hands. No insect or animal exposure. She does have a history of MRSA colonization which was documented at another institution as well as ESBL colonization of the respiratory tract. Presently, she is awake, but lethargic. She offers no complaints. She denies any recent febrile illness or shaking chills. No complaints of chest pain, shortness of breath, cough, sputum production. No vomiting or diarrhea. She denies dysuria or hematuria. PAST MEDICAL HISTORY: Positive for COPD and asthma. She was hospitalized in September of 2016 for pneumonia, history of scleroderma, CREST syndrome, recurrent aspiration, chronic interstitial lung disease, recurrent lower extremity cellulitis versus vasculitis, history of chronic low back pain on opiates, history of ESBL colonization of the respiratory tract, and MRSA colonization. PAST SURGICAL HISTORY: Status post appendectomy and spinal fusion. ALLERGIES: To PENICILLIN; patient was unsure of the exact nature of the allergy, thinks it was a rash many years ago. She has tolerated cephalosporins and carbapenems in the past. MEDICATIONS: Include mag-ox, Neurontin, Ventolin, Colace, propofol, fentanyl, Protonix. SOCIAL HISTORY: She lives at home, a former smoker. SYSTEMS REVIEW: Neurologic: As per HPI. Cardiac: Negative for chest pain or palpitations. Respiratory: Positive for chronic interstitial lung disease. Gastrointestinal: Negative for vomiting or diarrhea. Genitourinary: Negative for urinary tract infection. LABORATORY DATA: White count 6.1, hematocrit 30.9, platelet count 221. BUN 13, creatinine 0.7. Urine culture negative. Urinalysis negative leukocyte esterase. Chest x-ray showed increased markings at the bases bilaterally, right greater than left. PHYSICAL EXAMINATION: General: She is awake, but lethargic. She is in no acute respiratory distress. She appears comfortable on nasal cannula O2. Vital signs: Temperature 99, blood pressure 114/67, pulse 74 and regular, respirations 12 per minute. HEENT: Sclerae anicteric. Dry mucous membranes. Heart: Heart sounds S1, S2. Lungs: Bilateral rhonchi. No wheezing or rales. Abdomen: Soft. No tenderness elicited. No mass, rebound, or rigidity. Extremities: Negative for pedal edema. Examination of the left thumb, there is a large fluctuant area present over the palmar aspect of the left thumb, it appears discolored, possibly secondary to hematoma. There is some erythema noted in the paronychial area. Examination of the left 5th finger, there is erythema present at the distal aspect of the finger, it is tender to touch, there is no fluctuance. IMPRESSION: 1. Status post respiratory failure. 2. Possible drug overdose. 3. Abscess, left thumb/paronychial infection, possible sepsis. 4. PINICILLIN allergy. 5. Scleroderma/calcinosis, Raynaud phenomenon, esophageal dysmotility, sclerodactyly, and telangiectasia syndrome. 6. History of extended-spectrum beta-lactamase colonization of the respiratory tract and history of methicillin-resistant Staphylococcus aureus colonization. Obtain blood cultures x2, surgical evaluation for possible drainage of left thumb, empiric antibiotic coverage with vancomycin and cefepime. Patient has tolerated cephalosporins in the past. Critical care time spent: 40 minutes. Thank you for the kind referral. SHELBY FRANK M.D. [id number]
--- NOTE | 2016-12-14 14:48 | PN ---
Progress Note, Physician History of Present Illness: Pt. is extubated, no SOB/ CP/ palp./ abd pain. Pt admits taking " some Diazepam" from her girlfriend because "I couldn't sleep ". - Current Medication List Current Medications: Active Medications Albuterol Sulfate (Ventolin 0.083% Nebulizer Soln -) 1 amp NEB Q4H PRN PRN Reason: SHORT OF BREATH/WHEEZING Albuterol/Ipratropium (Duoneb -) 1 amp NEB BID [facility]IS[facility] Last Admin: 12/14/16 10:35 Dose: 1 amp Cefepime HCl (Maxipime 1gm Ivpb Pre-Docked) 1 gm IVPB Q8H-IV [facility]ISSA PRN Reason: Protocol Last Admin: 12/14/16 13:31 Dose: 1 gm Docusate Sodium (Colace -) 100 mg PO TID RAISSA Last Admin: 12/14/16 13:32 Dose: 100 mg Gabapentin (Neurontin Oral Liquid -) 400 mg PO TID RAISSA Last Admin: 12/14/16 14:34 Dose: 400 mg Pantoprazole Sodium (Protonix 40mg Ivpb (Pre-Docked)) 100 mls @ 200 mls/hr IVPB DAILY [facility] Last Admin: 12/14/16 10:22 Dose: 200 mls/hr Propofol (Diprivan -) 100 mls @ 1.769 mls/hr IVPB TITR RAISSA; 5 MCG/KG/MIN PRN Reason: Protocol Last Admin: 12/14/16 06:35 Dose: Not Given Fentanyl 500 mcg/ Dextrose 100 mls @ 10 mls/hr IJ TITR RAISSA PRN Reason: 50 MCG/HR Last Admin: 12/14/16 06:35 Dose: Not Given Sodium Chloride (Normal Saline -) 1,000 mls @ 75 mls/hr IV ASDIR RAISSA Last Admin: 12/13/16 17:00 Dose: 75 mls/hr Vancomycin HCl (Vancomycin (Pre-Docked)) 250 mls @ 200 mls/hr IVPB BID@0100, 1300 [facility] Last Admin: 12/14/16 13:31 Dose: 200 mls/hr Magnesium Oxide (Mag-Ox -) 400 mg PO Q4H [facility]IS[facility] Stop: 12/14/16 16:01 Last Admin: 12/14/16 13:32 Dose: 400 mg Metoclopramide HCl (Reglan Injection -) 10 mg IVPB BID [facility] Last Admin: 12/14/16 10:22 Dose: 10 mg - Objective Vital Signs: Vital Signs Temperature 99.3 F 12/14/16 14:39 Pulse Rate 88 12/14/16 14:39 Respiratory Rate 12 12/14/16 14:39 Blood Pressure 115/93 12/14/16 14:39 O2 Sat by Pulse Oximetry (%) 96 12/14/16 11:36 Constitutional: Yes: No Distress, Calm Cardiovascular: Yes: Regular Rate and Rhythm, S1, S2 Respiratory: Yes: Regular, Rhonchi, Other (coarse, scattered) Gastrointestinal: Yes: Normal Bowel Sounds, Soft. No: Tenderness Edema: No Wound/Incision: Yes: Other (Left 1-st finger with large blister on the lateral aspect of distal phalang, painful to palpation, no erythema, no discharge.) Neurological: Yes: Alert, Oriented, Cran Nerves II-XII Intact Labs: CBC, BMP 12/14/16 05:15 12/14/16 05:15 INR, PTT INR 1.37 (0.82-1.09) H 12/12/16 20:50 Problem List - Problems (1) Acute respiratory failure Assessment/Plan: Secondary to drug over dose. Extubated yesterday afternoon. Swallow evaluation today. Code(s): J96.00 - ACUTE RESPIRATORY FAILURE, UNSP W HYPOXIA OR HYPERCAPNIA Qualifiers: Respiratory failure complication: hypercapnia Qualified Code(s): J96.02 - Acute respiratory failure with hypercapnia (2) Interstitial lung disease Assessment/Plan: might benefit from steroids Code(s): J84.9 - INTERSTITIAL PULMONARY DISEASE, UNSPECIFIED (3) CREST syndrome Code(s): M34.1 - CR(E)ST SYNDROME (4) Raynauds disease Code(s): I73.00 - RAYNAUD'S SYNDROME WITHOUT GANGRENE (5) Scleroderma Code(s): M34.9 - SYSTEMIC SCLEROSIS, UNSPECIFIED (6) Esophageal dysmotility Code(s): K22.4 - DYSKINESIA OF ESOPHAGUS (7) Gastroparesis Code(s): K31.84 - GASTROPARESIS (8) COPD (chronic obstructive pulmonary disease) Code(s): J44.9 - CHRONIC OBSTRUCTIVE PULMONARY DISEASE, UNSPECIFIED (9) Anemia Code(s): D64.9 - ANEMIA, UNSPECIFIED Qualifiers: Anemia type: iron deficiency Iron deficiency anemia type: unspecified iron deficiency Qualified Code(s): D50.9 - Iron deficiency anemia, unspecified (10) Chronic back pain Code(s): M54.9 - DORSALGIA, UNSPECIFIED G89.29 - OTHER CHRONIC PAIN (11) Chronic use of opiate drugs therapeutic purposes Assessment/Plan: For back pain, managed by oil and gas specialist. On hold for now Code(s): Z79.899 - OTHER OPERATIONS OFFICER [employer] DEPARTMENT (CURRENT) DRUG THERAPY (12) Finger infection Assessment/Plan: ID consult- Case was discussed with Dr. Guerrero ( in ICU) Ortho consult. Code(s): L08.9 - LOCAL INFECTION OF THE SKIN AND SUBCUTANEOUS TISSUE, UNSP (13) Hypomagnesemia Assessment/Plan: Probable secondary to low PO intake. To replete Code(s): E83.42 - HYPOMAGNESEMIA Assessment/Plan GI prophylaxis DVT prophylaxis Aspiration precautions until evaluated by Swallow specialist. Case was d/w pt.'s nurse at bedside. AM labs. Case was d/w ICU resident. Time spent for managing pt.'s care: over 40 minutes
--- NOTE | 2016-12-14 15:46 | PN ---
Progress Note (short form) - Note Progress Note: Pt seen and examined in the ICU. In summary she has multiple medical problems. She has a finger infection. The ones relevent to her finger infection include scleroderma, reynauds, COPD. It has been getting worse for a few days. Blood cultures pending. WBC normal. Afebrile, other VSS PE Left thumb is swollen with a superficial abscess. She has undergone multiple finger tip amputations. Besides the infection she is at her normal baseline Imp Left thumb superficial abscess Plan After informed consent was obtained I did an open I&D under sterile conditions. I was able to express several CCs of pus. 2 culture sticks sent Wrapped in sterile gauze rec warm soaks 2x/day, 50% sterile saline 50% H2O2 or betadyne
[2016-12-14] MEDS ORDERED: ACETAMINOPHEN 1000 MG/100 ML VIAL (NON FORMULARY) IVPB PRN (16:00)
[2016-12-14] MEDS ORDERED: ACETAMINOPHEN 600 MG/60 ML IVPB PRN (17:10)
[2016-12-14] MEDS: SODIUM CHLORIDE 1,000 ML IV SCH (18:07)
[2016-12-15] MEDS: VANCOMYCIN 1 GRAM (PRE-DOCKED) 250 ML IVPB SCH ×2 (00:36→13:42)
[2016-12-15] MEDS: PROPOFOL 100 ML IVPB SCH (01:58)
[2016-12-15] MEDS: CEFEPIME 1 GM/100 ML BAG PRE-DOCKED IVPB SCH ×3 (01:58→17:05)
[2016-12-15] MEDS: FENTANYL INJECTION 500 MCG in DEXTROSE 5%-WATER - 90 ML IJ SCH (01:58)
[2016-12-15 05:55] LABS: MCH 26.1 pg (25.7-33.7); MCHC 32.6 g/dl (32.0-36.0); MEAN CELL VOLUME 80.1 fl (80-96); MEAN PLT VOLUME 8.5 fl (7.5-11.1); PLATELET COUNT 244 K/MM3 (134-434); RDW 17.9 % (11.6-15.6); WHITE BLOOD COUNT 8.4 K/mm3 (4.0-10.0)
[2016-12-15 06:29] LABS: ALBUMIN 2.2 g/dl (3.4-5.0); ANION GAP 10 (8-16); CO2 28 mmol/L (21-32); CREATININE 0.7 mg/dL (0.55-1.02); GLUCOSE,RANDOM 158 mg/dL (74-106); MAGNESIUM 1.2 mg/dL (1.8-2.4); SGOT/AST 14 U/L (15-37); SGPT/ALT 21 U/L (12-78)
[2016-12-15 06:33] LABS: ALK PHOS 41 U/L (45-117); BILIRUBIN,TOTAL 0.3 mg/dL (0.2-1.0); TOT PROT 5.7 g/dl (6.4-8.2)
[2016-12-15] MEDS: DOCUSATE SODIUM 100 MG CAPSULE (FP) PO SCH ×3 (07:02→22:13)
[2016-12-15] MEDS: GABAPENTIN 250 MG/5 ML ORAL SOLUTION, 470 ML BOTTLE PO SCH ×3 (07:03→22:21)
[2016-12-15] MEDS: PANTOPRAZOLE SODIUM 100 ML IVPB SCH (09:28)
[2016-12-15] MEDS: MULTIVITAMINS (DAILY MVI) TABLET (FP) PO SCH (09:28)
[2016-12-15] MEDS: METOCLOPRAMIDE HCL INJECTION 10 MG/2 ML VIAL IVPB SCH ×2 (09:31→22:13)
--- NOTE | 2016-12-15 09:33 | PN ---
Progress Note (short form) - Note Progress Note: Ortho Pt seen and examined feeling much better s/p left thumb I & D Selected Entries 12/14/16 18:00 Temperature 99 F Pulse Rate 87 Respiratory 16 Rate Blood Pressure 121/70 Laboratory Tests 12/15/16 05:05 WBC 8.4 D Hgb 10.5 L Hct 32.3 L Plt Count 244 minimal drainage, decr erythema and swelling incr rom culture pending a/p f/u wound culture ABX as per ID warm soaks ROM exercises will follow d/w Dr. Winchester
--- NOTE | 2016-12-15 09:35 | PN ---
Progress Note (short form) - Note Progress Note: doing well no complaints Vital Signs Period Temp Pulse Resp BP Sys/Sotelo Pulse Ox Last 24 Hr 99 F-99.3 F 74-99 12-18 104-127/67-93 96-96 cor-rrr lungs clear abd soft,nt ext thumb is dry no edema erythema lower extremity CBC, BMP 12/15/16 05:05 12/15/16 05:05 Microbiology 12/12/16 20:30 Urine - Urine Collier Urine Culture - Final NO GROWTH OBTAINED cultures pending Current Medications Albuterol Sulfate (Ventolin 0.083% Nebulizer Soln -) 1 amp NEB Q4H PRN PRN Reason: SHORT OF BREATH/WHEEZING Albuterol/Ipratropium (Duoneb -) 1 amp NEB BID [facility] Last Admin: 12/14/16 22:00 Dose: 1 amp Cefepime HCl (Maxipime 1gm Ivpb Pre-Docked) 1 gm IVPB Q8H-IV [facility]ISSA PRN Reason: Protocol Last Admin: 12/15/16 09:28 Dose: 1 gm Docusate Sodium (Colace -) 100 mg PO TID [facility] Last Admin: 12/15/16 07:02 Dose: Not Given Gabapentin (Neurontin Oral Liquid -) 800 mg PO TID [facility] Last Admin: 12/15/16 07:03 Dose: Not Given Pantoprazole Sodium (Protonix 40mg Ivpb (Pre-Docked)) 100 mls @ 200 mls/hr IVPB DAILY [facility] Last Admin: 12/15/16 09:28 Dose: 200 mls/hr Vancomycin HCl (Vancomycin (Pre-Docked)) 250 mls @ 200 mls/hr IVPB BID@0100, 1300 [facility] Last Admin: 12/15/16 00:36 Dose: 200 mls/hr Acetaminophen (Ofirmev Injection -) 60 mls @ 240 mls/hr IVPB Q6H PRN PRN Reason: FEVER OR PAIN Metoclopramide HCl (Reglan Injection -) 10 mg IVPB BID [facility] Last Admin: 12/15/16 09:31 Dose: 10 mg Multivitamins/Minerals/Vitamin C (Tab-A-Vit -) 1 tab PO DAILY [facility] Last Admin: 12/15/16 09:28 Dose: 1 tab a/p resp failure/drug OD thumb abscess- drained scleroderma/crest continue vanco/cefepime f/u cultures
[2016-12-15] MEDS: ALBUTEROL SO4 2.5/IPRATROPIUM 0.5 INH SOL 3 ML VIAL.NEB. NEB SCH ×2 (09:51→21:04)
--- NOTE | 2016-12-15 09:56 | PN ---
Progress Note, Physician Chief Complaint: pt seen in ICU extubated, NAD seems axox3 d/w pt importance to stop using nonprescribed meds; she said she remebers taking 2 valiums of 5 mg each for insomnia from her girlfriend Maki then she does not remember anything, woke up in ICU. pt denies any current c/o; has some cough and some pleuritic CP in the bases with cough; will f/u CXR labs meds tests and consults reviewed and d/w pt - Current Medication List Current Medications: Active Medications Albuterol Sulfate (Ventolin 0.083% Nebulizer Soln -) 1 amp NEB Q4H PRN PRN Reason: SHORT OF BREATH/WHEEZING Albuterol/Ipratropium (Duoneb -) 1 amp NEB BID [facility] Last Admin: 12/15/16 09:51 Dose: 1 amp Cefepime HCl (Maxipime 1gm Ivpb Pre-Docked) 1 gm IVPB Q8H-IV [facility] PRN Reason: Protocol Last Admin: 12/15/16 09:28 Dose: 1 gm Docusate Sodium (Colace -) 100 mg PO TID [facility] Last Admin: 12/15/16 07:02 Dose: Not Given Gabapentin (Neurontin Oral Liquid -) 800 mg PO TID [facility] Last Admin: 12/15/16 07:03 Dose: Not Given Pantoprazole Sodium (Protonix 40mg Ivpb (Pre-Docked)) 100 mls @ 200 mls/hr IVPB DAILY [facility] Last Admin: 12/15/16 09:28 Dose: 200 mls/hr Vancomycin HCl (Vancomycin (Pre-Docked)) 250 mls @ 200 mls/hr IVPB BID@0100, 1300 [facility] Last Admin: 12/15/16 00:36 Dose: 200 mls/hr Acetaminophen (Ofirmev Injection -) 60 mls @ 240 mls/hr IVPB Q6H PRN PRN Reason: FEVER OR PAIN Metoclopramide HCl (Reglan Injection -) 10 mg IVPB BID [facility] Last Admin: 12/15/16 09:31 Dose: 10 mg Multivitamins/Minerals/Vitamin C (Tab-A-Vit -) 1 tab PO DAILY [facility] Last Admin: 12/15/16 09:28 Dose: 1 tab - Objective Vital Signs: Vital Signs Temperature 99 F 12/14/16 18:00 Pulse Rate 85 12/14/16 20:46 Respiratory Rate 18 12/14/16 20:46 Blood Pressure 119/81 12/14/16 20:46 O2 Sat by Pulse Oximetry (%) 96 12/14/16 20:57 Constitutional: Yes: No Distress, Calm Eyes: Yes: Conjunctiva Clear HENT: Yes: Atraumatic Neck: Yes: Supple Cardiovascular: Yes: Regular Rate and Rhythm Respiratory: Yes: CTA Bilaterally Gastrointestinal: Yes: Soft. No: Distention, Palpable Mass, Tenderness Genitourinary: No: CVA Tenderness - Left, CVA Tenderness - Right, Hematuria Musculoskeletal: No: Joint Stiffness, Joint Swelling Extremities: Yes: Other (fingers amputation, one finger with local infection, seen by ID and hand sx). No: Cold, Cool Edema: No Peripheral Pulses WNL: Yes Integumentary: No: Rash, Venous Stasis Changes Neurological: Yes: WNL, Alert, Oriented ...Motor Strength: WNL Psychiatric: Yes: WNL, Alert, Oriented. No: Agitated, Suicidal Ideation Labs: CBC, BMP 12/15/16 05:05 12/15/16 05:05 INR, PTT INR 1.37 (0.82-1.09) H 12/12/16 20:50 - ....Imaging Other: Report Reviewed Assessment/Plan s/p Acute Hypercapneic Respiratory Failure Drug Overdose Scleroderma/CREST syndome COPD CAD CHF Hyperlipidemia small finger collection; ATB and hand sx f/u - taper FiO2 to keep SpO2 >90% - inhaled bronchodilators - minimize sedatives - can d/c antibiotics if cultures negative - aspiration precautions - DVT prophylaxis d/w pt stop all drug abuse; off opiates, off valium; advised to go to outpt detox/ drug programs; offered dr Marquis mac inpt (seen by him in the past ) pt refused pt understands and is aware that if she continues drug abuse and OD will most likely be lethal in the future prognosis guarded t time 40 min
--- NOTE | 2016-12-15 10:10 | PN ---
Progress Note (short form) - Note Progress Note: Patient seen and examined in the ICU. Remains extubated yesterday without incident. Denies shortness of breath. Mild nonproductive cough. No fevers or chills. Intake & Output 12/12/16 12/13/16 12/14/16 12/15/16 23:59 23:59 23:59 23:59 Intake Total 400 826 1684 Output Total 860 108 1972 Balance 50 360 1750 Weight 130 lb 106 lb 0.677 oz Last Vital Signs Temp Pulse Resp BP Pulse Ox 99 F 85 18 119/81 96 12/14/16 18:00 12/14/16 20:46 12/14/16 20:46 12/14/16 20:46 12/14/16 20:57 Active Medications Albuterol Sulfate (Ventolin 0.083% Nebulizer Soln -) 1 amp NEB Q4H PRN PRN Reason: SHORT OF BREATH/WHEEZING Albuterol/Ipratropium (Duoneb -) 1 amp NEB BID [facility] Last Admin: 12/15/16 09:51 Dose: 1 amp Cefepime HCl (Maxipime 1gm Ivpb Pre-Docked) 1 gm IVPB Q8H-IV RAISSA PRN Reason: Protocol Last Admin: 12/15/16 09:28 Dose: 1 gm Docusate Sodium (Colace -) 100 mg PO TID [facility] Last Admin: 12/15/16 07:02 Dose: Not Given Gabapentin (Neurontin Oral Liquid -) 800 mg PO TID [facility] Last Admin: 12/15/16 07:03 Dose: Not Given Pantoprazole Sodium (Protonix 40mg Ivpb (Pre-Docked)) 100 mls @ 200 mls/hr IVPB DAILY [facility] Last Admin: 12/15/16 09:28 Dose: 200 mls/hr Vancomycin HCl (Vancomycin (Pre-Docked)) 250 mls @ 200 mls/hr IVPB BID@0100, 1300 [facility] Last Admin: 12/15/16 00:36 Dose: 200 mls/hr Acetaminophen (Ofirmev Injection -) 60 mls @ 240 mls/hr IVPB Q6H PRN PRN Reason: FEVER OR PAIN Metoclopramide HCl (Reglan Injection -) 10 mg IVPB BID [facility] Last Admin: 12/15/16 09:31 Dose: 10 mg Multivitamins/Minerals/Vitamin C (Tab-A-Vit -) 1 tab PO DAILY [facility] Last Admin: 12/15/16 09:28 Dose: 1 tab Gen: Awake and alert, NAD at rest Heart: RRR Lung: scattered rhonchi Abd: soft, nontender Ext: + edema Laboratory Results - last 24 hr 12/14/16 12/15/16 12/15/16 05:15 05:05 05:05 WBC 8.4 D RBC 4.03 Hgb 10.5 L Hct 32.3 L MCV 80.1 MCHC 32.6 RDW 17.9 H Plt Count 244 MPV 8.5 Sodium 140 Potassium 3.0 L D Chloride 102 Carbon Dioxide 28 Anion Gap 10 BUN 12 Creatinine 0.7 Creat Clearance w eGFR > 60 Random Glucose 158 H D Calcium 8.0 L Phosphorus Cancelled Magnesium Cancelled 1.2 L Total Bilirubin 0.3 D AST 14 L D ALT 21 Alkaline Phosphatase 41 L Total Protein 5.7 L Albumin 2.2 L ASSESSMENT AND PLAN: Acute Hypercapneic Respiratory Failure ?Drug Overdose Scleroderma/CREST syndome COPD CAD CHF Hyperlipidemia - O2 to maintain saturation 88% to 92% - inhaled bronchodilators - ABX per ID - aspiration precautions - DVT prophylaxis - Floor Dr Owens CCTime 35"
[2016-12-15] MEDS ORDERED: POTASSIUM CHLORIDE 40 MEQ/30 ML UNIT DOSE CUP PO ONE (13:45)
[2016-12-15] MEDS ORDERED: ALBUTEROL SO4 0.083% IH SOL 2.5 MG/3 ML VIAL.NEB. NEB PRN (14:26)
[2016-12-15] MEDS ORDERED: PT OWN MED DRAWER 7, Y5N ONE (22:09)
[2016-12-15] MEDS ORDERED: GABAPENTIN 400 MG CAPSULE (FP) PO SCH (22:51)
[2016-12-16] MEDS: VANCOMYCIN 1 GRAM (PRE-DOCKED) 250 ML IVPB SCH ×2 (01:06→13:00)
[2016-12-16] MEDS: CEFEPIME 1 GM/100 ML BAG PRE-DOCKED IVPB SCH ×3 (02:46→18:19)
[2016-12-16] MEDS ORDERED: PT OWN MED DRAWER 7, Y5N ONE (06:04)
[2016-12-16] MEDS: GABAPENTIN 400 MG CAPSULE (FP) PO SCH ×3 (06:17→21:39)
[2016-12-16] MEDS: DOCUSATE SODIUM 100 MG CAPSULE (FP) PO SCH ×3 (06:17→21:48)
[2016-12-16 09:20] LABS: CALCIUM 8.5 mg/dL (8.5-10.1); CREATININE 0.7 mg/dL (0.55-1.02)
[2016-12-16] MEDS: METOCLOPRAMIDE HCL INJECTION 10 MG/2 ML VIAL IVPB SCH ×2 (10:11→21:40)
[2016-12-16] MEDS: PANTOPRAZOLE SODIUM 100 ML IVPB SCH (10:13)
--- NOTE | 2016-12-16 10:15 | PN ---
Progress Note, Physician Chief Complaint: on 6s in bed no new c/o afebrile, still some cough, no SOB; will check O2 sat/RA - Current Medication List Current Medications: Active Medications Albuterol Sulfate (Ventolin 0.083% Nebulizer Soln -) 1 amp NEB Q4H PRN PRN Reason: SHORT OF BREATH/WHEEZING Albuterol/Ipratropium (Duoneb -) 1 amp NEB BID [facility] Last Admin: 12/15/16 21:04 Dose: 1 amp Cefepime HCl (Maxipime 1gm Ivpb Pre-Docked) 1 gm IVPB Q8H-IV RAISSA PRN Reason: Protocol Last Admin: 12/16/16 10:11 Dose: 1 gm Docusate Sodium (Colace -) 100 mg PO TID [facility] Last Admin: 12/16/16 06:17 Dose: 100 mg Gabapentin (Neurontin -) 800 mg PO TID [facility] Last Admin: 12/16/16 06:17 Dose: 800 mg Acetaminophen (Ofirmev Injection -) 60 mls @ 240 mls/hr IVPB Q6H PRN PRN Reason: FEVER OR PAIN Pantoprazole Sodium (Protonix 40mg Ivpb (Pre-Docked)) 100 mls @ 200 mls/hr IVPB DAILY [facility] Last Admin: 12/16/16 10:13 Dose: 200 mls/hr Vancomycin HCl (Vancomycin (Pre-Docked)) 250 mls @ 200 mls/hr IVPB BID@0100, 1300 [facility] Last Admin: 12/16/16 01:06 Dose: 200 mls/hr Magnesium Oxide (Mag-Ox -) 400 mg PO BID [facility] Metoclopramide HCl (Reglan Injection -) 10 mg IVPB BID [facility] Last Admin: 12/16/16 10:11 Dose: 10 mg Multivitamins/Minerals/Vitamin C (Tab-A-Vit -) 1 tab PO DAILY [facility] Last Admin: 12/15/16 09:28 Dose: 1 tab Potassium Chloride (K-Dur -) 20 meq PO DAILY [facility] - Objective Vital Signs: Vital Signs Temperature 98.7 F 12/16/16 05:50 Pulse Rate 80 12/16/16 05:50 Respiratory Rate 20 12/16/16 05:50 Blood Pressure 123/78 12/16/16 05:50 O2 Sat by Pulse Oximetry (%) 96 12/15/16 21:00 Constitutional: Yes: No Distress, Calm Eyes: Yes: Conjunctiva Clear HENT: Yes: Atraumatic Neck: Yes: Supple Cardiovascular: Yes: Regular Rate and Rhythm Respiratory: Yes: Rales Gastrointestinal: Yes: Soft. No: Distention, Tenderness Genitourinary: No: CVA Tenderness - Left, CVA Tenderness - Right Musculoskeletal: No: Joint Stiffness, Joint Swelling Extremities: No: Cold, Cool Edema: No Peripheral Pulses WNL: Yes Integumentary: No: Rash, Venous Stasis Changes Neurological: Yes: WNL, Alert, Oriented ...Motor Strength: WNL Psychiatric: Yes: WNL, Alert, Oriented. No: Agitated, Suicidal Ideation Labs: CBC, BMP 12/15/16 05:05 12/16/16 06:00 INR, PTT INR 1.37 (0.82-1.09) H 12/12/16 20:50 - ....Imaging Other: Report Reviewed Assessment/Plan s/p Acute Hypercapneic Respiratory Failure Drug Overdose Scleroderma/CREST syndome COPD CAD CHF Hyperlipidemia small finger collection; ATB and hand sx f/u - taper FiO2 to keep SpO2 >90% - inhaled bronchodilators - minimize sedatives - aspiration precautions - DVT prophylaxis; ambulation d/w pt stop all drug abuse; pt admitted she used marijuana before admission, strongly advised to stop; pt is axox3 NAD in good spirits understands her condition, does not seem depressed nor suicidal; is OFF all opiates and controlled sunbstances since admission said her back is hurting but she can manage without opiates. Strongly encouraged to stay OFF opiates.
[2016-12-16] MEDS: MULTIVITAMINS (DAILY MVI) TABLET (FP) PO SCH (10:17)
--- NOTE | 2016-12-16 11:12 | PN ---
Progress Note (short form) - Note Progress Note: Overall better. Now on the medical floor. No SOB or CP. Mild nonproductive cough. No fevers or chills. Intake & Output 12/13/16 12/14/16 12/15/16 12/16/16 23:59 23:59 23:59 23:59 Intake Total 960 2850 100 Output Total 600 1100 Balance 360 1750 100 Weight 106 lb 0.677 oz Last Vital Signs Temp Pulse Resp BP Pulse Ox 98.7 F 80 20 123/78 96 12/16/16 05:50 12/16/16 05:50 12/16/16 05:50 12/16/16 05:50 12/15/16 21:00 Active Medications Albuterol Sulfate (Ventolin 0.083% Nebulizer Soln -) 1 amp NEB Q4H PRN PRN Reason: SHORT OF BREATH/WHEEZING Albuterol/Ipratropium (Duoneb -) 1 amp NEB BID [facility] Last Admin: 12/15/16 21:04 Dose: 1 amp Cefepime HCl (Maxipime 1gm Ivpb Pre-Docked) 1 gm IVPB Q8H-IV [facility]IS[facility] PRN Reason: Protocol Last Admin: 12/16/16 10:11 Dose: 1 gm Docusate Sodium (Colace -) 100 mg PO TID [facility] Last Admin: 12/16/16 06:17 Dose: 100 mg Gabapentin (Neurontin -) 800 mg PO TID [facility] Last Admin: 12/16/16 06:17 Dose: 800 mg Acetaminophen (Ofirmev Injection -) 60 mls @ 240 mls/hr IVPB Q6H PRN PRN Reason: FEVER OR PAIN Pantoprazole Sodium (Protonix 40mg Ivpb (Pre-Docked)) 100 mls @ 200 mls/hr IVPB DAILY [facility] Last Admin: 12/16/16 10:13 Dose: 200 mls/hr Vancomycin HCl (Vancomycin (Pre-Docked)) 250 mls @ 200 mls/hr IVPB BID@0100, 1300 [facility] Last Admin: 12/16/16 01:06 Dose: 200 mls/hr Magnesium Oxide (Mag-Ox -) 400 mg PO BID [facility] Metoclopramide HCl (Reglan Injection -) 10 mg IVPB BID [facility] Last Admin: 12/16/16 10:11 Dose: 10 mg Multivitamins/Minerals/Vitamin C (Tab-A-Vit -) 1 tab PO DAILY [facility] Last Admin: 12/16/16 10:17 Dose: 1 tab Potassium Chloride (K-Dur -) 20 meq PO DAILY [facility] Gen: Awake and alert, NAD at rest Heart: RRR Lung: few scattered rhonchi Abd: soft, nontender Ext: + edema Laboratory Results - last 24 hr 12/16/16 06:00 Sodium 142 Potassium 3.3 L Chloride 103 Carbon Dioxide 26 Anion Gap 13 BUN 9 D Creatinine 0.7 Random Glucose 85 D Calcium 8.5 ASSESSMENT AND PLAN: Acute Hypercapneic Respiratory Failure ?Drug Overdose Scleroderma/CREST syndome COPD CAD CHF Hyperlipidemia - O2 to maintain saturation 88% to 92% - inhaled bronchodilators - ABX per ID - aspiration precautions - DVT prophylaxis Dr Owens
[2016-12-16] MEDS: MAGNESIUM OXIDE 400 MG TABLET (FP) PO SCH ×2 (11:47→21:39)
[2016-12-16] MEDS: POTASSIUM CHLORIDE TABS 20 MEQ TABLET.ER (FP) PO SCH (11:47)
[2016-12-16] MEDS: ALBUTEROL SO4 2.5/IPRATROPIUM 0.5 INH SOL 3 ML VIAL.NEB. NEB SCH ×2 (18:38→23:00)
[2016-12-17] MEDS: VANCOMYCIN 1 GRAM (PRE-DOCKED) 250 ML IVPB SCH (00:40)
[2016-12-17] MEDS: CEFEPIME 1 GM/100 ML BAG PRE-DOCKED IVPB SCH ×2 (01:48→09:32)
[2016-12-17] MEDS: DOCUSATE SODIUM 100 MG CAPSULE (FP) PO SCH (06:24)
[2016-12-17] MEDS: GABAPENTIN 400 MG CAPSULE (FP) PO SCH (06:25)
[2016-12-17 06:39] VITALS: PULSE 70
[2016-12-17 07:29] LABS: BASOPHIL 0.7 % (0-2.0); EOSINOPHIL 13.5 % (0-4.5); MCH 26.5 pg (25.7-33.7); MCHC 32.7 g/dl (32.0-36.0); MEAN CELL VOLUME 81.1 fl (80-96); MEAN PLT VOLUME 8.1 fl (7.5-11.1); NEUTROPHILS 51.2 % (42.8-82.8); PLATELET COUNT 213 K/MM3 (134-434); RDW 17.5 % (11.6-15.6); WHITE BLOOD COUNT 5.5 K/mm3 (4.0-10.0)
[2016-12-17 07:50] LABS: CALCIUM 8.1 mg/dL (8.5-10.1); CREATININE 0.7 mg/dL (0.55-1.02); MAGNESIUM 1.3 mg/dL (1.8-2.4)
--- NOTE | 2016-12-17 09:06 | PN ---
Progress Note (short form) - Note Progress Note: Ortho Pt seen and examined feeling much better s/p left thumb I & D Microbiology 12/14/16 16:00 Abscess Gram Stain - Final 12/14/16 16:00 Abscess Gram Stain - Final 12/14/16 16:00 Abscess Wound Culture - Preliminary Streptococcus Viridans Staphylococcus Coagulase Neg 12/14/16 16:00 Abscess Wound Culture - Preliminary Streptococcus Viridans Selected Entries 12/17/16 06:38 Temperature 98.0 F Pulse Rate 70 Respiratory 18 Rate Blood Pressure 130/62 Laboratory Tests 12/17/16 06:20 WBC 5.5 D Hgb 10.9 Hct 33.2 Plt Count 213 no drainage, decr erythema and swelling incr rom a/p ABX as per ID warm soaks ROM exercises january d/c from ortho pov d/w Dr. Winchester
[2016-12-17] MEDS: MULTIVITAMINS (DAILY MVI) TABLET (FP) PO SCH (09:30)
[2016-12-17] MEDS: POTASSIUM CHLORIDE TABS 20 MEQ TABLET.ER (FP) PO SCH (09:30)
[2016-12-17] MEDS: MAGNESIUM OXIDE 400 MG TABLET (FP) PO SCH (09:30)
[2016-12-17] MEDS: METOCLOPRAMIDE HCL INJECTION 10 MG/2 ML VIAL IVPB SCH (09:31)
[2016-12-17] MEDS: PANTOPRAZOLE SODIUM 100 ML IVPB SCH (09:33)
[2016-12-17] MEDS: ALBUTEROL SO4 2.5/IPRATROPIUM 0.5 INH SOL 3 ML VIAL.NEB. NEB SCH (10:39)
--- NOTE | 2016-12-17 12:31 | PN ---
Progress Note, Physician History of Present Illness: No c/o thumb pain No fever/ chills No leukocytosis S/P drainage, thumb abscess - Current Medication List Current Medications: Active Medications Albuterol Sulfate (Ventolin 0.083% Nebulizer Soln -) 1 amp NEB Q4H PRN PRN Reason: SHORT OF BREATH/WHEEZING Albuterol/Ipratropium (Duoneb -) 1 amp NEB BID [facility] Last Admin: 12/17/16 10:39 Dose: 1 amp Cefepime HCl (Maxipime 1gm Ivpb Pre-Docked) 1 gm IVPB Q8H-IV [facility] PRN Reason: Protocol Last Admin: 12/17/16 09:32 Dose: 1 gm Docusate Sodium (Colace -) 100 mg PO TID [facility] Last Admin: 12/17/16 06:24 Dose: Not Given Gabapentin (Neurontin -) 800 mg PO TID [facility] Last Admin: 12/17/16 06:25 Dose: 800 mg Acetaminophen (Ofirmev Injection -) 60 mls @ 240 mls/hr IVPB Q6H PRN PRN Reason: FEVER OR PAIN Pantoprazole Sodium (Protonix 40mg Ivpb (Pre-Docked)) 100 mls @ 200 mls/hr IVPB DAILY [facility] Last Admin: 12/17/16 09:33 Dose: 200 mls/hr Vancomycin HCl (Vancomycin (Pre-Docked)) 250 mls @ 200 mls/hr IVPB BID@0100, 1300 [facility] Last Admin: 12/17/16 00:40 Dose: 200 mls/hr Magnesium Oxide (Mag-Ox -) 400 mg PO BID [facility] Last Admin: 12/17/16 09:30 Dose: 400 mg Metoclopramide HCl (Reglan Injection -) 10 mg IVPB BID [facility] Last Admin: 12/17/16 09:31 Dose: 10 mg Multivitamins/Minerals/Vitamin C (Tab-A-Vit -) 1 tab PO DAILY [facility] Last Admin: 12/17/16 09:30 Dose: 1 tab Potassium Chloride (K-Dur -) 20 meq PO DAILY [facility] Last Admin: 12/17/16 09:30 Dose: 20 meq - Objective Vital Signs: Vital Signs Temperature 98.0 F 12/17/16 06:38 Pulse Rate 70 12/17/16 06:38 Respiratory Rate 18 12/17/16 06:38 Blood Pressure 130/62 12/17/16 06:38 O2 Sat by Pulse Oximetry (%) 95 12/16/16 11:43 Constitutional: Yes: No Distress Eyes: Yes: Conjunctiva Clear Cardiovascular: Yes: Regular Rate and Rhythm, S1, S2 Respiratory: Yes: Rhonchi Gastrointestinal: Yes: Normal Bowel Sounds, Soft. No: Tenderness Extremities: Yes: Other (L thumb no erythema/ fluctuance) Labs: CBC, BMP 12/17/16 06:20 12/17/16 06:20 INR, PTT INR 1.37 (0.82-1.09) H 12/12/16 20:50 Assessment/Plan S/P I&D L thumb abscess S/P respiratory failure PCN allergy Hx Scleroderma, partial finger amputations Substitute keflex 500mg po tid x 5d Outpatient hand surgery follow up
--- NOTE | 2016-12-17 12:49 | PN ---
Progress Note (short form) - Note Progress Note: Overall better. No SOB or CP. Mild nonproductive cough. No fevers or chills. CXR: Significant improvement / minimal plate like LLL atelectasis Intake & Output 12/14/16 12/15/16 12/16/16 12/17/16 23:59 23:59 23:59 23:59 Intake Total 2850 100 1000 840 Output Total 1100 Balance 3192 862 6649 840 Last Vital Signs Temp Pulse Resp BP Pulse Ox 98.0 F 70 18 130/62 95 12/17/16 06:38 12/17/16 06:38 12/17/16 09:00 12/17/16 06:38 12/17/16 09:00 Active Medications Albuterol Sulfate (Ventolin 0.083% Nebulizer Soln -) 1 amp NEB Q4H PRN PRN Reason: SHORT OF BREATH/WHEEZING Albuterol/Ipratropium (Duoneb -) 1 amp NEB BID [facility] Last Admin: 12/17/16 10:39 Dose: 1 amp Cephalexin HCl (Keflex -) 500 mg PO TID [facility] Docusate Sodium (Colace -) 100 mg PO TID [facility] Last Admin: 12/17/16 06:24 Dose: Not Given Gabapentin (Neurontin -) 800 mg PO TID [facility] Last Admin: 12/17/16 06:25 Dose: 800 mg Acetaminophen (Ofirmev Injection -) 60 mls @ 240 mls/hr IVPB Q6H PRN PRN Reason: FEVER OR PAIN Pantoprazole Sodium (Protonix 40mg Ivpb (Pre-Docked)) 100 mls @ 200 mls/hr IVPB DAILY [facility] Last Admin: 12/17/16 09:33 Dose: 200 mls/hr Magnesium Oxide (Mag-Ox -) 400 mg PO BID [facility] Last Admin: 12/17/16 09:30 Dose: 400 mg Metoclopramide HCl (Reglan Injection -) 10 mg IVPB BID [facility] Last Admin: 12/17/16 09:31 Dose: 10 mg Multivitamins/Minerals/Vitamin C (Tab-A-Vit -) 1 tab PO DAILY [facility] Last Admin: 12/17/16 09:30 Dose: 1 tab Potassium Chloride (K-Dur -) 20 meq PO DAILY [facility] Last Admin: 12/17/16 09:30 Dose: 20 meq Gen: Awake and alert, NAD at rest Heart: RRR Lung: few scattered rhonchi Abd: soft, nontender Ext: + edema Laboratory Results - last 24 hr 12/17/16 12/17/16 06:20 06:20 WBC 5.5 D RBC 4.09 Hgb 10.9 Hct 33.2 MCV 81.1 MCHC 32.7 RDW 17.5 H Plt Count 213 MPV 8.1 Neutrophils % 51.2 D Lymphocytes % 23.2 D Monocytes % 11.4 H D Eosinophils % 13.5 H D Basophils % 0.7 Sodium 141 Potassium 3.2 L Chloride 102 Carbon Dioxide 29 Anion Gap 10 BUN 10 Creatinine 0.7 Random Glucose 90 Calcium 8.1 L Magnesium 1.3 L ASSESSMENT AND PLAN: Acute Hypercapneic Respiratory Failure ?Drug Overdose Scleroderma/CREST syndome COPD CAD CHF Hyperlipidemia - Supplement K+ - inhaled bronchodilators - ABX per ID - aspiration precautions - DVT prophylaxis - No Pulmonary contraindication for D/C home Dr Owens
[2016-12-17] MEDS ORDERED: CEPHALEXIN MONOHYDRATE 500 MG CAPSULE (UD) PO SCH (14:00)
[2016-12-17 14:14] VITALS: BP 128/73; TEMP 98.2
--- NOTE | 2016-12-17 14:40 | DS ---
Physical Examination Vital Signs: Vital Signs Temperature 98.2 F 12/17/16 10:00 Pulse Rate 70 12/17/16 10:00 Respiratory Rate 18 12/17/16 10:00 Blood Pressure 128/73 12/17/16 10:00 O2 Sat by Pulse Oximetry (%) 95 12/17/16 09:00 Findings/Remarks: pt seen in am on 6s she felt better, asked to go home, CXR was pending, ID rec also pending Constitutional: Yes: No Distress Eyes: Yes: Conjunctiva Clear HENT: Yes: Atraumatic Neck: Yes: Supple Cardiovascular: Yes: Regular Rate and Rhythm Respiratory: Yes: Rales Gastrointestinal: Yes: Soft. No: Distention, Tenderness Renal/: No: CVA Tenderness - Left, CVA Tenderness - Right Musculoskeletal: No: Joint Stiffness, Joint Swelling Extremities: Yes: Other (s/p L thumb I&D by ortho) Edema: No Peripheral Pulses WNL: Yes Integumentary: No: Rash, Venous Stasis Changes Neurological: Yes: WNL, Alert, Oriented ...Motor Strength: WNL Psychiatric: Yes: WNL, Alert, Oriented. No: Agitated, Suicidal Ideation Labs: CBC, BMP 12/17/16 06:20 12/17/16 06:20 Discharge Summary Reason For Visit: TRANSIENT ALTERATION OF AWARENESS admitted with OD and acute respiratory failure needed mechanical ventilation, ICU Procedures: Principal: admitted with OD and acute respiratory failure needed mechanical ventilation, ICU Other Procedures: pulmonary, ID eval, also ortho for thumb abscess, had I&D Hospital Course: improved with ventilation; mental status improved; extubated; I&D of thumb abcess; IV ATB per ID cleared during the day by ID to be DCd home, I was called by nurse pt is at the door ready to go home, she did not want to wait for me to do the DC papers and prescriptions and left AMA; will call her for office f/u tomorrow from office. Condition: Improved - Instructions Diet, Activity, Other Instructions: f/u PCP pulmonary, hand surgery in 1-2 weeks po keflex ordered as per ID stop all drug use! pain management f/u outpt for pain meds nonopiates. outpt drug rehab and detox and psych eval as advised Referrals: Eva Gonzalez [Primary Care Provider] - Disposition: AGAINST MEDICAL ADVICE - Home Medications Comprehensive Discharge Medication List: Ambulatory Orders Duloxetine HCl [Cymbalta -] 60 mg PO DAILY #30 capsule. 03/10/15 Albuterol 0.083% Nebulizer Cinthya [Ventolin 0.083% Nebulizer Soln -] 1 amp NEB Q4H PRN #1 amp 04/11/16 Aspirin [ASA -] 81 mg PO DAILY tab.chew 04/11/16 Budesonide/Formeterol Fumarate [SYMBICORT 80/4.5mcg -] 2 puff IH BID #1 inhaler 04/11/16 Tiotropium [place] [Spiriva] 1 puff IH DAILY #1 inh 04/27/16 Docusate Sodium [Colace -] 100 mg PO TID PRN 05/27/16 Polyethylene Glycol 3350 [Miralax 119 gm Btl -] 17 gm PO DAILY PRN 05/27/16 Ranitidine [Zantac -] 150 mg PO DAILY 05/27/16 Gabapentin [Neurontin -] 800 mg PO TID capsule 05/28/16 Aclidinium [place] [Tudorza -] 1 puff IH DAILY inhaler 07/20/16 Lactobacillus Acidophilus [Bacid -] 1 each PO DAILY #30 capsule 07/20/16 Metoclopramide HCl [Reglan -] 10 mg PO ACHS tablet 07/20/16 Acetaminophen [Tylenol .Regular Strength -] 650 mg PO Q6H PRN #0 tablet Hydroxychloroquine So4 [Plaquenil -] 200 mg PO BID tablet 07/31/16 Pantoprazole Sodium [Protonix -] 40 mg PO BID tablet.ec 07/31/16 Cyclobenzaprine HCl [Flexeril -] 5 mg PO BID PRN #20 tablet 09/16/16 Lidocaine 5% Patch [Lidoderm -] 2 patch TP DAILY #60 patch 09/16/16 Oxycodone Sr [Oxycontin] 80 mg PO BID #60 tab.er.12h MDD 2 10/01/16
== END 2016-12-17 13:30 | disposition left against medical advice (07) | DRG 917 ==
LOC: JER 20:41 → JERBED 22:14 → JICU 12-13 05:45 → J6S 12-15 14:20
PROVIDERS: ADMIT Internal Medicine; ATTEND Internal Medicine
PROC: 5A1935Z Respiratory Ventilation, Less than 24 Consecutive Hours (ICD-10-PCS; principal; 2016-12-12)
PROC: 0X9K0ZX Drainage of Left Hand, Open Approach, Diagnostic (ICD-10-PCS; 2016-12-14)
DX: T50.991A Poisoning by other drugs, medicaments and biological substances, accidental (unintentional), initial encounter (principal); J96.02 Acute respiratory failure with hypercapnia; E43 Unspecified severe protein-calorie malnutrition; F11.20 Opioid dependence, uncomplicated; J84.9 Interstitial pulmonary disease, unspecified; L02.512 Cutaneous abscess of left hand; J44.9 Chronic obstructive pulmonary disease, unspecified; J45.909 Unspecified asthma, uncomplicated; E78.5 Hyperlipidemia, unspecified; M34.9 Systemic sclerosis, unspecified; I73.00 Raynaud's syndrome without gangrene; M34.1 CR(E)ST syndrome; Z88.0 Allergy status to penicillin; F12.10 Cannabis abuse, uncomplicated; Z87.891 Personal history of nicotine dependence; I25.10 Atherosclerotic heart disease of native coronary artery without angina pectoris; D50.9 Iron deficiency anemia, unspecified; I50.9 Heart failure, unspecified; N80.9 Endometriosis, unspecified; K22.4 Dyskinesia of esophagus; M54.9 Dorsalgia, unspecified; K31.84 Gastroparesis; E83.42 Hypomagnesemia
CPT/HCPCS: 36415; 36600; 70450-TC; 71010-TC; 71020-TC; 74000-TC; 80048; 80053; 80307; 81003; 81015; 82375; 82550; 82553; 82803; 83050; 83540; 83735; 84100; 84484; 84702; 85025; 85027; 85610; 86850; 86900; 86901; 87040; 87070; 87076; 87077; 87086; 87205; 87324; 87449; 90670; 93005; 93010; 93306-TC; 94002; 94640; 94761; 99285-25

== ENCOUNTER 2016-12-22 20:00 | Inpatient (IN) | payer OTHER ==
[2016-12-22 20:08] VITALS: BMI 17.2
--- NOTE | 2016-12-22 20:11 | PDOC ---
History of Present Illness - General History Source: Patient, Old Records Exam Limitations: No Limitations - History of Present Illness Initial Comments: 12/22/16 20:23 The patient is a 51 year old female with past medical history of cigarette smoking, prescription narcotics abuse, hyperlipidemia, COPD, asthma, scleroderma , gastroparesis, Raynaud's, multiple upper extremity digit amputations, and CREST syndrome who presents to the ED for 3 days of nausea and vomiting. She describes the vomiting as nonbloody and nonbilious and is accompanied by a loss of appetite. She states that she experiences these symptoms often and relates them to her scleroderma. She denies any diarrhea. The patient states that she was recently discharged from the hospital on 12/17. She denies any recent fever , chills, cough, shortness of breath, chest pain, or urinary symptoms. PCP: Dr. 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) CVA: No COPD: Yes CHF: No Dementia: No Diabetes: No GI Disorders: Yes (REFLUX) Disorders: No HTN: No Hypercholesterolemia: Yes Liver Disease: No Seizures: No Thyroid Disease: Yes (HYPO.) - Surgical History Abdominal Surgery: Yes Appendectomy: Yes Cardiac Surgery: No Cholecystectomy: No Lung Surgery: No Neurologic Surgery: Yes (LS/RODS &BONE FUSIONS) Orthopedic Surgery: Yes (multiple back sx, hand sx,b/o hip) - Immunization History Immunization Up to Date: Yes - Psycho/Social/Smoking Cessation Hx Anxiety: No Suicidal Ideation: No Smoking Status: No Smoking History: Former smoker Have you smoked in the past 12 months: No Number of Cigarettes Smoked Daily: 10 If you are a former smoker, when did you quit?: 4 years ago Information on smoking cessation initiated: No 'Breaking Loose' booklet given: 09/12/16 Hx Alcohol Use: No Drug/Substance Use Hx: Yes Substance Use Type: Marijuana, Opiates Hx Substance Use Treatment: (unknown) <Nicole Shaw - Last Filed: 12/24/16 06:14> - Past Medical History Allergies/Adverse Reactions: Allergies Allergy/AdvReac Type Severity Reaction Status Date / Time Penicillins Allergy Severe Hives Verified 12/22/16 20:08 tomato AdvReac Uncoded 12/22/16 20:08 Home Medications: Ambulatory Orders Duloxetine HCl [Cymbalta -] 60 mg PO DAILY #30 capsule. 03/10/15 Albuterol 0.083% Nebulizer Cinthya [Ventolin 0.083% Nebulizer Soln -] 1 amp NEB Q4H PRN #1 amp 04/11/16 Aspirin [ASA -] 81 mg PO DAILY tab.chew 04/11/16 Budesonide/Formeterol Fumarate [SYMBICORT 80/4.5mcg -] 2 puff IH BID #1 inhaler 04/11/16 Polyethylene Glycol 3350 [Miralax 119 gm Btl -] 17 gm PO DAILY PRN 05/27/16 Ranitidine [Zantac -] 150 mg PO DAILY 05/27/16 Gabapentin [Neurontin -] 800 mg PO TID capsule 05/28/16 Aclidinium [place] [Tudorza -] 1 puff IH DAILY inhaler 07/20/16 Lactobacillus Acidophilus [Bacid -] 1 each PO DAILY #30 capsule 07/20/16 Metoclopramide HCl [Reglan -] 10 mg PO ACHS tablet 07/20/16 Acetaminophen [Tylenol .Regular Strength -] 650 mg PO Q6H PRN #0 tablet Hydroxychloroquine So4 [Plaquenil -] 200 mg PO BID tablet 07/31/16 Pantoprazole Sodium [Protonix -] 40 mg PO BID tablet.ec 07/31/16 Cyclobenzaprine HCl [Flexeril -] 5 mg PO BID PRN #20 tablet 09/16/16 Lidocaine 5% Patch [Lidoderm -] 2 patch TP DAILY #60 patch 09/16/16 Albuterol 2.5/Ipratropium 0.5 [Duoneb -] 1 amp NEB BID amp 12/17/16 Multivitamins [Multivit ([facility] Formul[facility])] 1 tab PO DAILY tab 12/17/16 Cephalexin Monohydrate [Keflex -] 500 mg PO TID #15 cap 12/18/16 Magnesium Oxide [Mag-Ox -] 400 mg PO BID #30 tablet MDD 2 12/18/16 Potassium Chloride [K-Dur -] 20 meq PO DAILY #30 tab 12/18/16 Review of Systems - Review of Systems Able to Perform ROS?: Yes Comments:: 12/22/16 20:36 GENERAL/CONSTITUTIONAL: No fever or chills. No weakness. HEAD, EYES, EARS, NOSE AND THROAT: No change in vision. No ear pain or discharge. No sore throat. CARDIOVASCULAR: No chest pain or shortness of breath. RESPIRATORY: No cough, wheezing, or hemoptysis. GASTROINTESTINAL: Present: nausea, vomiting No diarrhea or constipation. GENITOURINARY: No dysuria, frequency, or change in urination. MUSCULOSKELETAL: No joint or muscle swelling or pain. No neck or back pain. SKIN: No rash NEUROLOGIC: No headache, vertigo, loss of consciousness, or change in strength/ sensation. ENDOCRINE: No increased thirst. No abnormal weight change. HEMATOLOGIC/LYMPHATIC: No anemia, easy bleeding, or history of blood clots. ALLERGIC/IMMUNOLOGIC: No hives or skin allergy. All Other Systems: Reviewed and Negative <Fatoumata Sepulveda - Last Filed: 12/22/16 23:25> *Physical Exam - Vital Signs Last Vital Signs Temp Pulse Resp BP Pulse Ox 98.6 F 89 18 108/79 99 12/22/16 20:05 12/22/16 20:05 12/22/16 20:05 12/22/16 20:05 12/22/16 20:05 - Physical Exam Comments: 12/22/16 20:37 GENERAL: Awake, alert, and fully oriented, in no acute distress HEAD: No signs of trauma EYES: Present: near pin point pupils, reactive to light EOMI, sclera anicteric, conjunctiva clear ENT: Present: dental carries, dry mucous membranes Auricles normal inspection, hearing grossly normal, nares patent, oropharynx clear without exudates. NECK: Normal ROM, supple, no lymphadenopathy, JVD, or masses LUNGS: Breath sounds equal, clear to auscultation bilaterally. No wheezes, and no crackles HEART: Regular rate and rhythm, normal S1 and S2, no murmurs, rubs or gallops ABDOMEN: Soft, nontender, normoactive bowel sounds. No guarding, no rebound. No masses EXTREMITIES: Present: missing digits on bilateral hands Normal range of motion, no edema. No cyanosis. No cords, erythema, or tenderness NEUROLOGICAL: Cranial nerves II through XII grossly intact. Normal speech, normal gait SKIN: Warm, Dry, normal turgor, no rashes or lesions noted. <Fatoumata Sepulveda - Last Filed: 12/22/16 23:25> - Vital Signs Last Vital Signs Temp Pulse Resp BP Pulse Ox 98.6 F 89 18 108/79 99 12/22/16 20:05 12/22/16 20:05 12/22/16 20:05 12/22/16 20:05 12/22/16 20:05 <Nicole Shaw - Last Filed: 12/24/16 06:14> ED Treatment Course - LABORATORY CBC & Chemistry Diagram: 12/22/16 21:17 12/22/16 21:17 <CocoFatoumata - Last Filed: 12/22/16 23:25> - LABORATORY CBC & Chemistry Diagram: 12/23/16 10:00 12/23/16 10:00 <Nicole Shaw - Last Filed: 12/24/16 06:14> Medical Decision Making - Medical Decision Making 12/22/16 23:23 Phone call placed to Dr. Gonzalez. Call returned within 5 minutes and case was discussed. <Fatoumata Sepulveda - Last Filed: 12/22/16 23:25> - Medical Decision Making 12/22/16 20:50 Pt comes with nausea and vomiting and she feels weak. SHe states that she thinks she needs to stay in the hospital. Pt was here last week for SOB and she had been intubated and was admitted to the ICU. Pt has a history of scleroderma and smoking and use of narcotic pain killers. She has had hypokalemia on past labs. SHe will be hydrated, given mag sulfate, reglan, pepecid, and once labs return she will be given potassium as needed. 12/24/16 06:12 Pt was admitted for intractable vomiting. <Nicole Shaw - Last Filed: 12/24/16 06:14> *DC/Admit/Observation/Transfer - Attestations Scribe Attestion: 12/22/16 20:40 Documentation prepared by Fatoumata Sepulveda, acting as family practice medical doctor for Nicole Shaw MD. <Fatoumata Sepulveda - Last Filed: 12/22/16 23:25> - Discharge Dispostion Admit: Yes <Nicole Shaw - Last Filed: 12/24/16 06:14> Diagnosis at time of Disposition: CREST (calcinosis, Raynaud's phenomenon, esophageal dysfunction, sclerodactyly , telangiectasia), Nausea & vomiting, Intractable vomiting, Small bowel obstruction - Discharge Dispostion Condition at time of disposition: Stable - Referrals
[2016-12-22] MEDS ORDERED: SODIUM CHLORIDE 0.9% 500 ML INFUS.BAG IV ONE (20:24)
[2016-12-22] MEDS ORDERED: METOCLOPRAMIDE HCL INJECTION 10 MG/2 ML VIAL IVPB ONE (20:24)
[2016-12-22] MEDS ORDERED: MAGNESIUM SULF 50% (8.12 MEQ/2 ML-1 GM VIAL) IVPB ONE (20:24)
[2016-12-22] MEDS ORDERED: FAMOTIDINE 20 MG/50 ML IVPB 50 ML IVPB ONE (20:24)
[2016-12-22] MEDS ORDERED: METOCLOPRAMIDE HCL INJECTION 10 MG/2 ML VIAL ONE (20:55)
[2016-12-22] MEDS ORDERED: MAGNESIUM SULF 50% (8.12 MEQ/2 ML-1 GM VIAL) ONE (20:55)
[2016-12-22] MEDS ORDERED: ONDANSETRON 4 MG/2 ML VIAL IVPB ONE (21:23)
[2016-12-22 21:25] LABS: BASOPHIL 0.3 % (0-2.0); EOSINOPHIL 1.4 % (0-4.5); MCH 25.6 pg (25.7-33.7); MCHC 31.5 g/dl (32.0-36.0); MEAN CELL VOLUME 81.2 fl (80-96); MEAN PLT VOLUME 8.3 fl (7.5-11.1); NEUTROPHILS 79.3 % (42.8-82.8); PLATELET COUNT 426 K/MM3 (134-434); RDW 17.6 % (11.6-15.6); WHITE BLOOD COUNT 13.6 K/mm3 (4.0-10.0)
[2016-12-22] MEDS ORDERED: ONDANSETRON 4 MG/2 ML VIAL ONE (21:27)
[2016-12-22 21:46] LABS: AMYLASE 62 U/L (25-115)
[2016-12-22 22:37] LABS: ALBUMIN 3.1 g/dl (3.4-5.0); BILIRUBIN,TOTAL 0.3 mg/dL (0.2-1.0); COCKROFT - GAULT 47.1155; TOT PROT 7.3 g/dl (6.4-8.2)
[2016-12-22] MEDS ORDERED: KCL 10 MEQ IVPB 300 ML IVPB ONE (23:12)
[2016-12-22] MEDS: KCL 10 MEQ IVPB 100 ML IVPB SCH (23:37)
[2016-12-23] MEDS ORDERED: METOCLOPRAMIDE HCL INJECTION 10 MG/2 ML VIAL IVPB ONE (00:39)
[2016-12-23] MEDS ORDERED: morphine CARPU-JECT 2 MG/1 ML DISP.SYRIN IVPUSH ONE (00:39)
[2016-12-23] MEDS ORDERED: morphine CARPU-JECT 2 MG/1 ML DISP.SYRIN ONE (00:45)
[2016-12-23] MEDS ORDERED: METOCLOPRAMIDE HCL INJECTION 10 MG/2 ML VIAL ONE (00:45)
[2016-12-23] MEDS: KCL 10 MEQ IVPB 100 ML IVPB SCH ×2 (01:37→02:48)
[2016-12-23] MEDS ORDERED: ONDANSETRON 4 MG/2 ML VIAL IVPB PRN (08:22)
[2016-12-23] MEDS ORDERED: ONDANSETRON 4 MG/2 ML VIAL IVPUSH ONE (08:25)
[2016-12-23] MEDS ORDERED: SODIUM CHLORIDE 1,000 ML IV STA (08:25)
[2016-12-23] MEDS ORDERED: morphine CARPU-JECT 4 MG/1 ML DISP.SYRIN IVPUSH ONE (08:25)
[2016-12-23] MEDS ORDERED: ONDANSETRON 4 MG/2 ML VIAL ONE ×2 (09:09→13:13)
[2016-12-23] MEDS ORDERED: morphine CARPU-JECT 4 MG/1 ML DISP.SYRIN ONE (09:09)
[2016-12-23] MEDS ORDERED: LEVOFLOXACIN 500 MG IVPB 100 ML IVPB ONE (09:10)
[2016-12-23] MEDS ORDERED: METRONIDAZOLE 500 MG PREMIXED 100 ML IVPB ONE (09:10)
[2016-12-23] MEDS ORDERED: HYDROmorphone HCL CARPU-JECT 1 MG/1 ML DISP.SYRIN IVPUSH ONE ×2 (09:14→14:06)
--- NOTE | 2016-12-23 09:24 | PDOC ---
*Physical Exam - Vital Signs Last Vital Signs Temp Pulse Resp BP Pulse Ox 98.6 F 72 19 145/93 96 12/22/16 20:05 12/23/16 06:48 12/23/16 06:48 12/23/16 06:48 12/23/16 06:48 ED Treatment Course - LABORATORY CBC & Chemistry Diagram: 12/22/16 21:17 12/22/16 21:17 - ADDITIONAL ORDERS Additional order review: Laboratory Results 12/22/16 12/22/16 21:17 21:17 Sodium 140 Potassium 3.2 L Chloride 86 L D Carbon Dioxide 41 H D Anion Gap 13 BUN 23 H D Creatinine 1.0 D Creat Clearance w eGFR 58.22 Random Glucose 118 H D Calcium 9.0 Total Bilirubin 0.3 AST 13 L ALT 18 Alkaline Phosphatase 44 L Total Protein 7.3 D Albumin 3.1 L D Total Amylase 62 D Lipase 138 12/22/16 21:17 RBC 4.97 D MCV 81.2 MCHC 31.5 L RDW 17.6 H MPV 8.3 Neutrophils % 79.3 D Lymphocytes % 11.2 D Monocytes % 7.8 Eosinophils % 1.4 D Basophils % 0.3 - Medications Given in the ED: ED Medications Discontinued Medications Generic Name Dose Route Start Last Admin Trade Name Freq PRN Reason Stop Dose Admin Famotidine/Sodium Chloride 50 mls @ 100 mls/hr 12/22/16 20:24 12/22/16 21:07 Pepcid 20 Mg Premixed Ivpb - IVPB 12/22/16 20:53 100 mls/hr ONCE ONE Administration Potassium Chloride 100 mls @ 100 mls/hr 12/22/16 23:00 12/23/16 02:48 Potassium Chloride 10 Meq Premix Ivpb - IVPB 12/23/16 01:59 100 mls/hr Q60M RAISSA Administration Magnesium Sulfate 2 gm 12/22/16 20:24 12/22/16 21:06 Magnesium Sulfate IVPB 12/22/16 20:25 2 gm ONCE ONE Administration Metoclopramide HCl 10 mg 12/22/16 20:24 12/22/16 21:07 Reglan Injection - IVPB 12/22/16 20:25 10 mg ONCE ONE Administration Metoclopramide HCl 10 mg 12/23/16 00:39 12/23/16 00:53 Reglan Injection - IVPB 12/23/16 00:40 10 mg ONCE ONE Administration Morphine Sulfate 2 mg 12/23/16 00:39 12/23/16 00:53 Morphine Injection - IVPUSH 12/23/16 00:40 2 mg ONCE ONE Administration Ondansetron HCl 4 mg 12/22/16 21:23 12/22/16 21:32 Zofran Injection IVPB 12/22/16 21:24 4 mg ONCE ONE Administration Sodium Chloride 1,000 ml 12/22/16 20:24 12/22/16 21:06 Normal Saline - IV 12/22/16 20:25 1,000 ml ONCE ONE Administration Progress Note - Progress Note Progress Note: This patient was endorsed to me at [address] Quezada. The patient was admitted to medicine for intractable vomiting. However, the radiologist called me this morning and stated that there was free air under the diaphragm on the chest x- ray. I reevaluated the patient at that point and found that she had been having abdominal pain for the past 4 days with intractable vomiting. Her abdomen is distended and diffusely tender. CT scan of the abdomen and pelvis without contrast was ordered and general surgery was called simultaneously, Dr. Burns. CT scan shows pneumoperitoneum and multiple dilated small bowel loops with air within the stomach wall and free fluid. The plan is for Dr. Burns to calm in and take the patient to the operating room. I have upgraded the patient to an ICU bed and have spoken to the Alejandro Vasques. I have attempted to place an NG tube in the patient and she currently refuses. The patient has been ordered IV fluids, pain management and anti-emetics. She is nothing by mouth pending surgery. *DC/Admit/Observation/Transfer Diagnosis at time of Disposition: CREST (calcinosis, Raynaud's phenomenon, esophageal dysfunction, sclerodactyly , telangiectasia), Nausea & vomiting, Intractable vomiting, Small bowel obstruction - Discharge Dispostion Condition at time of disposition: Stable Admit: Yes
[2016-12-23] MEDS ORDERED: SODIUM CHLORIDE 1,000 ML IV SCH ×2 (09:25→14:06)
[2016-12-23] MEDS ORDERED: ALBUTEROL SO4 0.083% IH SOL 2.5 MG/3 ML VIAL.NEB. NEB PRN ×2 (10:16→14:06)
[2016-12-23 10:28] LABS: BASOPHIL 0.3 % (0-2.0); EOSINOPHIL 1.5 % (0-4.5); MCH 25.5 pg (25.7-33.7); MCHC 31.1 g/dl (32.0-36.0); MEAN CELL VOLUME 82.1 fl (80-96); MEAN PLT VOLUME 8.7 fl (7.5-11.1); NEUTROPHILS 78.9 % (42.8-82.8); PLATELET COUNT 372 K/MM3 (134-434); RDW 17.6 % (11.6-15.6); WHITE BLOOD COUNT 11.2 K/mm3 (4.0-10.0)
--- NOTE | 2016-12-23 10:40 | HP ---
Admitting History and Physical - Primary Care Physician PCP: Eva Gonzalez S - Admission Chief Complaint: abdominal pain, vomiting History of Present Illness: The patient is a 51 year old female with past medical history of cigarette smoking, nonobstructive ashd and diastolic CHF, narcotics abuse, hyperlipidemia , COPD, asthma, scleroderma, gastroparesis, Raynaud's, multiple upper extremity digit amputations, and CREST syndrome who presents to the ED for 3 days of nausea and vomiting. She describes the vomiting as nonbloody and nonbilious and is accompanied by a loss of appetite. She states that she experiences these symptoms often and relates them to her scleroderma. She denies any diarrhea. The patient swas recently discharged from the hospital on 12/17 (admitted with drug OD, respiratory failure). She denies any recent fever, chills, cough, shortness of breath, chest pain, or urinary symptoms. I saw pt in office 4 days ago after she vomited once at home and did not have bowel movement in few days; I advised her to stop all opiates and to take miralax TID and if not better by next day to go to ER but she did not want to go to H ER; I also d/w pt's mother who confirmed that Petra did not want to go back to H ER. Petra restarted opiates at home despite being advised to stop them completely (she was in H last week with respiratory failure sec to OD, see chart, and opiates were held for 5 days) she left the H 1 week ago AMA. Of note, Ssdru had bowel perforation few years ago (sec to opiates, scleroderma) but did not need surgery at that point; the episode resolved with bowel rest and NGT and IV ATB. Petra was referred multiple times to detox (inpt and outpt), pain management and other specialists, , psychiatry / psychology in the past to help her stop narcotics addiction, she saw them but she did not go to detox, pt's family aware of her problems. History Source: Patient, Medical Record Limitations to Obtaining History: No Limitations - Past Medical History TYPER: Yes: Peripheral Neuropathy Cardiovascular: Yes: Other (Raynaud's w/ multiple upper extremity digit amputations. Normal coronaries on cardiac cath and EF 65% with mild AI, trace [place] [facility] [place] Pulmonary: Yes: Asthma, COPD, Pneumonia, Other (lung mass of undetermined etiology) Gastrointestinal: Yes: Constipation, Diverticulitis, Diverticulosis (small bowel diverticular perforation, scleroderma affecting the esophagus, Bonner's esophagus, Schatzki ring,GAVE syndrome, antral ulcer, gastroparesis related to scleroderma), GERD (with long segment Bonner's esophagus and patent Schatzki ring), Peptic Ulcer Disease (antral ulcer ), Other (Bonner's esophagus, GERD, Schatzki ring, perforation of small bowel diverticulum, antral ulcer, scleroderma causing esophageal dysmotility and gastroparesis) Renal/: Yes: Renal Failure Heme/Onc: Yes: Anemia Infectious Disease: Yes: MRSA (bursitis) Psych: Yes: Addictions (marijuana,tobacco and prescription narcotics) Musculoskeletal: Yes: Chronic low back pain, Other (has spinal stimulator) Rheumatology: Yes: Vasculitis, Other (Scleroderma, Raynauds and CREST syndrome) Endocrine: Yes: Hypothyroidism, Other (Malnutrition, osteoporosis) Dermatology: Yes: Cellulitis - Past Surgical History Past Surgical History: Yes: Appendectomy, Colonoscopy, Upper Endoscopy - Smoking History Smoking history: Former smoker Have you smoked in the past 12 months: Yes Aproximately how many cigarettes per day: 10 - Alcohol/Substance Use Hx Alcohol Use: No History of Substance Use: reports: Marijuana (quit 1 month ago), Prescription - Social History Usual Living Arrangement: Yes: With Parent ADL: Independent Occupation: disabled History of Recent Travel: No Home Medications - Allergies Allergies/Adverse Reactions: Allergies Allergy/AdvReac Type Severity Reaction Status Date / Time Penicillins Allergy Severe Hives Verified 12/22/16 20:08 tomato AdvReac Uncoded 12/22/16 20:08 - Home Medications Home Medications: Ambulatory Orders Duloxetine HCl [Cymbalta -] 60 mg PO DAILY #30 capsule. 03/10/15 Albuterol 0.083% Nebulizer Cinthya [Ventolin 0.083% Nebulizer Soln -] 1 amp NEB Q4H PRN #1 amp 04/11/16 Aspirin [ASA -] 81 mg PO DAILY tab.chew 04/11/16 Budesonide/Formeterol Fumarate [SYMBICORT 80/4.5mcg -] 2 puff IH BID #1 inhaler 04/11/16 Polyethylene Glycol 3350 [Miralax 119 gm Btl -] 17 gm PO DAILY PRN 05/27/16 Ranitidine [Zantac -] 150 mg PO DAILY 05/27/16 Gabapentin [Neurontin -] 800 mg PO TID capsule 05/28/16 Aclidinium [place] [Tudorza -] 1 puff IH DAILY inhaler 07/20/16 Lactobacillus Acidophilus [Bacid -] 1 each PO DAILY #30 capsule 07/20/16 Metoclopramide HCl [Reglan -] 10 mg PO ACHS tablet 07/20/16 Acetaminophen [Tylenol .Regular Strength -] 650 mg PO Q6H PRN #0 tablet Hydroxychloroquine So4 [Plaquenil -] 200 mg PO BID tablet 07/31/16 Pantoprazole Sodium [Protonix -] 40 mg PO BID tablet.ec 07/31/16 Cyclobenzaprine HCl [Flexeril -] 5 mg PO BID PRN #20 tablet 09/16/16 Lidocaine 5% Patch [Lidoderm -] 2 patch TP DAILY #60 patch 09/16/16 Albuterol 2.5/Ipratropium 0.5 [Duoneb -] 1 amp NEB BID amp 12/17/16 Multivitamins [Multivit ([facility] Formul[facility])] 1 tab PO DAILY tab 12/17/16 Cephalexin Monohydrate [Keflex -] 500 mg PO TID #15 cap 12/18/16 Magnesium Oxide [Mag-Ox -] 400 mg PO BID #30 tablet MDD 2 12/18/16 Potassium Chloride [K-Dur -] 20 meq PO DAILY #30 tab 12/18/16 Family Disease History - Family Disease History Family Disease History: Diabetes: Father (HCV), Heart Disease: Father, Mother, Other: Father, Brother (HIV) Review of Systems - Review of Systems Constitutional: reports: Loss of Appetite. denies: Chills, Fever Eyes: denies: Blind Spots, Blurred Vision, Double Vision HENT: denies: Ear Pain, Nasal Congestion Neck: denies: Stiffness, Tenderness Cardiovascular: denies: Chest Pain, Palpitations, Shortness of Breath Respiratory: denies: Cough, SOB Gastrointestinal: reports: Abdominal Pain, Bloating, Constipation, Vomiting. denies: Melena, Rectal Bleeding, Vomiting Blood Genitourinary: denies: Dysuria, Flank Pain Musculoskeletal: reports: Back Pain (chronic) Integumentary: denies: Bruising Neurological: denies: Change in LOC, Change in Speech, Confusion, Dizziness, Headache, Seizure, Syncope Hematology/Lymphatic: denies: Easily Bruised, Excessive Bleeding Psychiatric: denies: Altered Sleep Pattern, Anxiety, Depression, Suicidal Physical Examination Vital Signs: Vital Signs Temperature 98.6 F 12/22/16 20:05 Pulse Rate 72 12/23/16 06:48 Respiratory Rate 19 12/23/16 06:48 Blood Pressure 145/93 12/23/16 06:48 O2 Sat by Pulse Oximetry (%) 96 12/23/16 06:48 Constitutional: Yes: Mild Distress Eyes: Yes: Conjunctiva Clear HENT: Yes: Atraumatic Neck: Yes: Supple Cardiovascular: Yes: Regular Rate and Rhythm Respiratory: Yes: Rales (bilateral), Rhonchi Gastrointestinal: Yes: Distention, Tenderness (general). No: Soft Renal/: No: CVA Tenderness - Left, CVA Tenderness - Right, Hematuria Musculoskeletal: No: Joint Stiffness, Joint Swelling Extremities: No: Cold, Cool Edema: No Peripheral Pulses WNL: Yes Integumentary: No: Rash, Venous Stasis Changes Neurological: Yes: WNL, Alert, Oriented ...Motor Strength: WNL Psychiatric: Yes: WNL, Alert, Oriented. No: Agitated, Suicidal Ideation Imaging - Results Chest X-ray: Report Reviewed Cat Scan: Report Reviewed Other: Report Reviewed Assessment/Plan The patient is a 51 year old female with past medical history of cigarette smoking, prescription narcotics abuse, hyperlipidemia, COPD, asthma, scleroderma , gastroparesis, Raynaud's, multiple upper extremity digit amputations, and CREST syndrome who presents to the ED for 3 days of nausea and vomiting and abdominal pain; CXR showed free air under diaphragm; abdomen CT confirmed bowel perforation and dilated bowels. admit to ICU NPO, IVF; NGT placed in ER IV antibiotics per ID iv PPI GI and surgery eval d/w surgery dr Burns who advised pt to have surgery maria c. cardio, pulm eval for preop and postop f/u; given multiple comorbidities and the emergent nature of the intervention, pt is at high risk for intraop and postop complications (respiratory failure, sepsis, cardiac events) I d/w pt all the above, she is axox3 NAD able to answer and ask appropriately and she agreed with plan; she asked me to call her sister Park or her mother; her sister Park phome [phone] not in c at this point \I called pt's mom Court and d/w her all the above she understood and is aware of pt's condition and plan of tx prognosis guarded. t time 90 minutes
[2016-12-23 10:53] LABS: ALBUMIN 2.9 g/dl (3.4-5.0); ANION GAP 11 (8-16); BILIRUBIN,TOTAL 0.4 mg/dL (0.2-1.0); CALCIUM 8.7 mg/dL (8.5-10.1); CO2 38 mmol/L (21-32); COCKROFT - GAULT 52.3515; CREATININE 0.9 mg/dL (0.55-1.02); GLUCOSE,RANDOM 121 mg/dL (74-106); SGPT/ALT 20 U/L (12-78); TOT PROT 7.2 g/dl (6.4-8.2)
[2016-12-23 10:54] LABS: ALK PHOS 45 U/L (45-117)
[2016-12-23 11:02] LABS: SGOT/AST 27 U/L (15-37)
[2016-12-23] MEDS ORDERED: PANTOPRAZOLE SODIUM 100 ML IVPB SCH (11:15)
--- NOTE | 2016-12-23 11:39 | PN ---
Progress Note (short form) - Note Progress Note: Attending Surgeon CTSP for evaluation and management of acute onset abdominal pain and imaging findings of pneumoperitoneum; patient is a 51 y/o female who was recently d/c' ed from the hospital;' I have reviewed her past admissions and imaging going back # years; I d/w her PCP her history; she has vomiting and generalized abdominal pain. O/E VSS AF abdomen-tender and distended; no hernias imaging and labs reviewed IMP:pneumoperitoneum PLAN:ex lap;r/b/t d/w the patient; need for surgery and alternatives discussed; she wishes to proceed; possible bowel resection/colostomy discussed; she understands given the hx. we may NOT find the source; amber ed/w the PCP. Chris Burns MD FACS
[2016-12-23] MEDS ORDERED: PROPOFOL 20 ML ONE (11:48)
[2016-12-23] MEDS ORDERED: SUCCINYLCHOLINE CHLORIDE 200 MG/10 ML VIAL ONE (11:48)
[2016-12-23] MEDS ORDERED: ROCURONIUM BROMIDE 50 MG/5 ML VIAL ONE (11:48)
[2016-12-23] MEDS ORDERED: ePHEDrine SULFATE 50 MG/1 ML AMPULE ONE (12:31)
[2016-12-23] MEDS ORDERED: HYDROmorphone HCL/PF 1 MG/ML VIAL (FOR PYXIS CHARGING ONLY) ONE (12:41)
[2016-12-23] MEDS ORDERED: NEOSTIGMINE METHYLSULFATE 0.5 MG/ML - 10 ML MDV ONE (13:05)
[2016-12-23] MEDS ORDERED: GLYCOPYRROLATE 0.2 MG/1 ML VIAL ONE (13:05)
[2016-12-23] MEDS ORDERED: ALBUMIN HUMAN 5% 250 ML IV SOLUTION IVPB SCH ×2 (13:15→14:06)
--- NOTE | 2016-12-23 13:38 | OP ---
Operative Note - Note: Operative Date: 12/23/16 Pre-Operative Diagnosis: Pneumperitoneum, abdominal pain Operation: Exploratory laparotomy Findings: Ran the entire small bowel from treitz to terminal ileum; ascending colon to sigmoid; inspected stomach; entered lesser sac and no perforations identified. Post-Operative Diagnosis: Same as Pre-op Surgeon: Chris Burns Examiner Rating Clerk: Abraham Muro Anesthesiologist/SHEET METAL SHOP FOREMAN: Lui Neely Anesthesia: General Estimated Blood Loss (mls): 10 Drains & Tubes with Location: NGT 900mL Drains, Volume Out (mls): 300 (concentrated urine) Fluid Volume Replaced (mls): 1,900 Operative Report Dictated: Yes
--- NOTE | 2016-12-23 13:39 | SURG ---
Surgery Strap Sewer Note Strap Sewer: Abraham Muro PA-C Date of Service: 12/23/16 Diagnosis: Pneumoperitoneum, abdominal pain Procedure: Exploratory laparotomy. Findings: Ran the entire small bowel from treitz to terminal ileum; ascending colon to sigmoid; inspected stomach; entered lesser sac and no perforations identified. I was present for the entirety of the operative procedure. For further detail, please refer to operative report. Visit type - Case Type Case Type: ED Admission - Emergency Emergency Visit: Yes ED Registration Date: 12/22/16 Care time: The patient presented to the Emergency Department on the above date and was hospitalized for further evaluation of their emergent condition. - New patient This patient is new to me today: Yes Date on this admission: 12/23/16
[2016-12-23] MEDS ORDERED: ACETAMINOPHEN 1000 MG/100 ML VIAL (NON FORMULARY) IVPB PRN (13:43)
[2016-12-23] MEDS ORDERED: LACTATED RINGERS SOLUTION 1,000 ML IV SCH (13:45)
[2016-12-23] MEDS ORDERED: PROMETHAZINE HCL 25 MG/1 ML VIAL IVPUSH PRN (13:45)
[2016-12-23] MEDS ORDERED: PROMETHAZINE HCL 25 MG/1 ML VIAL IVPB PRN (13:45)
--- NOTE | 2016-12-23 14:10 | CON.GI ---
Consult Consult Specialty:: Gastroenterology Referred by:: Dr Gonzalez Reason for Consultation:: Abdominal pain - History of Present Illness Chief Complaint: Nausea,vomiting and abdominal pain for 3 days History of Present Illness: 51W with Scleroderma/CREST syndrome presents with 3 days h/o N/V and abdominal pain. Imaging revealed pneumoperitoneum and the patient is now postop. I was never notified of this consult but responded when I found Petra on my [employer] list. Dr. Burns informs me that no perforation or acute pathology was found. She had a similar presentation in the past which resolved with conservative measures and was felt to be due to a small bowel diverticulum which are associated with scleroderma. She does suffer with gastroparesis and gaseous retention that is aggravated by her narcotic usage. She has apparently been using narcotic analgesics recently. This history is obtained from the chart as Petra is groggy in the PACU. - History Source History Provided By: Medical Record Limitations to Obtaining History: Clinical Condition (post anesthesia) - Past Medical History SONOGRAPHER: Yes: Peripheral Neuropathy Cardio/Vascular: Yes: Aortic Insufficiency (mild), Mitral Insufficiency (mild), Other (Raynaud's w/ multiple upper extremity digit amputations. Normal coronaries on cardiac cath and EF 65% with mild AI, trace MR and TR on [place] @ [facility] [place] Pulmonary: Yes: Asthma, COPD, Pneumonia, Other (lung mass of undetermined etiology) Gastrointestinal: Yes: Constipation, Diverticulitis, Diverticulosis (small bowel diverticular perforation, scleroderma affecting the esophagus, Bonner's esophagus, Schatzki ring,GAVE syndrome, antral ulcer, gastroparesis related to scleroderma), GERD (with long segment Bonner's esophagus and patent Schatzki ring), Peptic Ulcer Disease (antral ulcer ), Other (Bonner's esophagus, GERD, Schatzki ring, perforation of small bowel diverticulum, antral ulcer, scleroderma causing esophageal dysmotility and gastroparesis, GERD with long segment Bonner's esophagus,Schatzki ring,GAVE syndrome) Renal/: Yes: Renal Failure Infectious Disease: Yes: MRSA (bursitis) Psych: Yes: Addictions (marijuana,tobacco and prescription narcotics) Musculoskeletal: Yes: Chronic low back pain, Other (has spinal stimulator) Rheumatology: Yes: Vasculitis, Other (Scleroderma, Raynauds and CREST syndrome) Endocrine: Yes: Hypothyroidism, Other (Malnutrition, osteoporosis) Dermatology: Yes: Cellulitis - Past Surgical History Past Surgical History: Yes: Appendectomy, Colonoscopy, Upper Endoscopy Additional Surgical History: Exploratory laparotomy with no findings 12/23/16 - Alcohol/Substance Use Hx Alcohol Use: No History of Substance Use: reports: Marijuana, Prescription - Smoking History Smoking history: Former smoker Have you smoked in the past 12 months: Yes Aproximately how many cigarettes per day: 10 If you are a former smoker, when did you quit?: 4 years ago - Social History Usual Living Arrangement: With Parent ADL: Independent Occupation: disabled Place of : [facility] History of Recent Travel: No Home Medications - Allergies Allergies/Adverse Reactions: Allergies Allergy/AdvReac Type Severity Reaction Status Date / Time Penicillins Allergy Severe Hives Verified 12/22/16 20:08 tomato AdvReac Uncoded 12/22/16 20:08 - Home Medications Home Medications: Ambulatory Orders Duloxetine HCl [Cymbalta -] 60 mg PO DAILY #30 capsule. 03/10/15 Albuterol 0.083% Nebulizer Cinthya [Ventolin 0.083% Nebulizer Soln -] 1 amp NEB Q4H PRN #1 amp 04/11/16 Aspirin [ASA -] 81 mg PO DAILY tab.chew 04/11/16 Budesonide/Formeterol Fumarate [SYMBICORT 80/4.5mcg -] 2 puff IH BID #1 inhaler 04/11/16 Polyethylene Glycol 3350 [Miralax 119 gm Btl -] 17 gm PO DAILY PRN 05/27/16 Ranitidine [Zantac -] 150 mg PO DAILY 05/27/16 Gabapentin [Neurontin -] 800 mg PO TID capsule 05/28/16 Aclidinium Fowler [Tudorza -] 1 puff IH DAILY inhaler 07/20/16 Lactobacillus Acidophilus [Bacid -] 1 each PO DAILY #30 capsule 07/20/16 Metoclopramide HCl [Reglan -] 10 mg PO ACHS tablet 07/20/16 Acetaminophen [Tylenol .Regular Strength -] 650 mg PO Q6H PRN #0 tablet Hydroxychloroquine So4 [Plaquenil -] 200 mg PO BID tablet 07/31/16 Pantoprazole Sodium [Protonix -] 40 mg PO BID tablet.ec 07/31/16 Cyclobenzaprine HCl [Flexeril -] 5 mg PO BID PRN #20 tablet 09/16/16 Lidocaine 5% Patch [Lidoderm -] 2 patch TP DAILY #60 patch 09/16/16 Albuterol 2.5/Ipratropium 0.5 [Duoneb -] 1 amp NEB BID amp 12/17/16 Multivitamins [Multivit ([facility] Formulary)] 1 tab PO DAILY tab 12/17/16 Cephalexin Monohydrate [Keflex -] 500 mg PO TID #15 cap 12/18/16 Magnesium Oxide [Mag-Ox -] 400 mg PO BID #30 tablet MDD 2 12/18/16 Potassium Chloride [K-Dur -] 20 meq PO DAILY #30 tab 12/18/16 Family Disease History - Family Disease History Family Disease History: Diabetes: Father (HCV), Heart Disease: Father, Mother, Other: Father, Brother (HIV) Review of Systems Unable to obtain ROS, reason: post anestehsia in PACU Physical Exam-GI Vital Signs: Vital Signs Temperature 98.6 F 12/22/16 20:05 Pulse Rate 72 12/23/16 06:48 Respiratory Rate 19 12/23/16 06:48 Blood Pressure 145/93 12/23/16 06:48 O2 Sat by Pulse Oximetry (%) 96 12/23/16 06:48 CBC,CMP WBC 11.2 K/mm3 (4.0-10.0) H 12/23/16 10:00 RBC 5.14 M/mm3 (3.60-5.2) 12/23/16 10:00 Hgb 13.1 GM/dL (10.7-15.3) 12/23/16 10:00 Hct 42.3 % (32.4-45.2) 12/23/16 10:00 MCV 82.1 fl (80-96) 12/23/16 10:00 MCHC 31.1 g/dl (32.0-36.0) L 12/23/16 10:00 RDW 17.6 % (11.6-15.6) H 12/23/16 10:00 Plt Count 372 K/MM3 (134-434) 12/23/16 10:00 MPV 8.7 fl (7.5-11.1) 12/23/16 10:00 Neutrophils % 78.9 % (42.8-82.8) 12/23/16 10:00 Lymphocytes % 11.8 % (8-40) 12/23/16 10:00 Monocytes % 7.5 % (3.8-10.2) 12/23/16 10:00 Eosinophils % 1.5 % (0-4.5) 12/23/16 10:00 Basophils % 0.3 % (0-2.0) 12/23/16 10:00 Sodium 139 mmol/L (136-145) 12/23/16 10:00 Potassium 4.3 mmol/L (3.5-5.1) D 12/23/16 10:00 Chloride 90 mmol/L (98-107) L 12/23/16 10:00 Carbon Dioxide 38 mmol/L (21-32) H 12/23/16 10:00 Anion Gap 11 (8-16) 12/23/16 10:00 BUN 22 mg/dL (7-18) H 12/23/16 10:00 Creatinine 0.9 mg/dL (0.55-1.02) 12/23/16 10:00 Creat Clearance w eGFR > 60 (>60) 12/23/16 10:00 Random Glucose 121 mg/dL (74-106) H 12/23/16 10:00 Lactic Acid 3.099 mmol/L (0.4-2.0) H* 12/23/16 10:10 Calcium 8.7 mg/dL (8.5-10.1) 12/23/16 10:00 Total Bilirubin 0.4 mg/dL (0.2-1.0) D 12/23/16 10:00 AST 27 U/L (15-37) D 12/23/16 10:00 ALT 20 U/L (12-78) 12/23/16 10:00 Alkaline Phosphatase 45 U/L (45-117) 12/23/16 10:00 Total Protein 7.2 g/dl (6.4-8.2) 12/23/16 10:00 Albumin 2.9 g/dl (3.4-5.0) L 12/23/16 10:00 Total Amylase 62 U/L (25-115) D 12/22/16 21:17 Lipase 157 U/L (73-393) 12/23/16 10:00 Current Medications Generic Name Dose Route Start Last Admin Trade Name Freq PRN Reason Stop Dose Admin Acetaminophen 1,000 mg 12/23/16 13:43 Ofirmev Injection - IVPB 12/24/16 07:44 Q6H PRN FEVER OR PAIN Aclidinium Fowler 1 puff 12/24/16 10:00 Tudorza - IH DAILY RAISSA Albumin Human 25 gm 12/23/16 14:06 Plasbumin-5 - IVPB 12/24/16 13:16 ASDIR RAISSA Albuterol Sulfate 1 amp 12/23/16 14:06 Ventolin 0.083% Nebulizer Soln - NEB Q4H PRN SHORT OF BREATH/WHEEZING Albuterol/Ipratropium 1 amp 12/23/16 22:00 Duoneb - NEB BID RAISSA Budesonide/Formoterol Fumarate 2 puff 12/23/16 22:00 Symbicort 80/4.5mcg - IH BID RAISSA Diphenhydramine HCl 12.5 mg 12/23/16 13:45 Benadryl Injection - IVPUSH ONCE PRN FOR ITCHING Fentanyl 50 mcg 12/23/16 13:45 Sublimaze Injection - IVPUSH 12/26/16 13:46 [id number] PRN PAIN Heparin Sodium (Porcine) 5,000 unit 12/23/16 18:00 Heparin - SQ Q8H-IV RAISSA Hydromorphone HCl 0 mg 12/23/16 13:45 Dilaudid Vegetable Washer - BLEACH MACHINE OPERATOR 12/30/16 13:46 BLEACH MACHINE OPERATOR RAISSA Protocol Hydromorphone HCl 1 mg 12/23/16 14:06 Dilaudid Injection - IVPUSH 12/23/16 14:07 ONCE ONE Lactated Ringer's 1,000 mls @ 125 mls/hr 12/23/16 13:45 Lactated Ringers Solution IV ASDIR RAISSA Pantoprazole Sodium 100 mls @ 200 mls/hr 12/24/16 10:00 Protonix 40mg Ivpb (Pre-Docked) IVPB DAILY [facility] Sodium Chloride 1,000 mls @ 50 mls/hr 12/23/16 14:06 Normal Saline - IV 12/24/16 09:24 ASDIR [facility] Lidocaine 2 patch 12/24/16 10:00 Lidoderm Patch - TP DAILY RAISSA Ondansetron HCl 4 mg 12/23/16 14:06 Zofran Injection IVPB Q8H PRN NAUSEA Promethazine HCl 12.5 mg 12/23/16 13:45 Phenergan Injection - IVPUSH 12/23/16 19:46 Q6H PRN NAUSEA Promethazine HCl 12.5 mg 12/23/16 13:45 Phenergan Injection - IVPB Q6H PRN NAUSEA AND/OR VOMITING Constitutional: Yes: Calm, Thin, Other (lethargic post-anesthesia taut facial skin) Eyes: Yes: Conjunctiva Clear HENT: Yes: Normocephalic Neck: Yes: Supple Cardiovascular: Yes: Regular Rate and Rhythm Respiratory: Yes: Rhonchi (bilaterally) Gastrointestinal Inspection: Yes: Scars (fresh mildline inicsion, healed transverse RLQ incision) ...Auscultate: Yes: No Bowel Sounds ...Rectal Exam: Yes: Deferred Extremities: Yes: Shortened (multiple acral finger amputations and sausage shaped fingers) Labs: CBC, BMP 12/23/16 10:00 12/23/16 10:00 INR, PTT INR Cancelled 12/23/16 10:00 Assessment/Plan The patient is s/p exploratory laparotomy for pneumoperitoneum and abdominal pain with no obvious perforation seen. A pinhole perforation, perhaps within a distended diverticulum or other focus cannot be excluded. Will leave postop management to the surgical team. She will be due to Bonner's surveillance in . Will empirically give PPI.
[2016-12-23] MEDS ORDERED: HYDROmorphone *PCA* 10MG/50ML DISP.SYRIN PCA ONE ×2 (14:28→19:43)
[2016-12-23] MEDS ORDERED: ACETAMINOPHEN 1000 MG/100 ML VIAL (NON FORMULARY) IVPB ONE (14:30)
[2016-12-23] MEDS: HYDROmorphone *PCA* 10MG/50ML DISP.SYRIN PCA SCH ×2 (14:40→20:19)
--- NOTE | 2016-12-23 15:21 | CON.CARD ---
Consult Consult Specialty:: cardiology Reason for Consultation:: Scleroderma; multiple CAD risks; abdominal pain. - History of Present Illness Chief Complaint: Pt is in pain (abdominal) post-op; no recent chest pain of dyspnea History of Present Illness: The patient is a 51 year old white female with past medical history of CREST syndrome, cigarette smoking (now on "electronic cigarette"), prescription narcotics abuse, hyperlipidemia, COPD, asthma, gastroparesis, Raynaud's, multiple upper extremity digit amputations, who presents to the ED for 3 days of nausea and vomiting. She describes the vomiting as nonbloody and nonbilious and is accompanied by a loss of appetite. She states that she experiences these symptoms often and relates them to her scleroderma. She denies any diarrhea. The patient states that she was recently discharged from the hospital on 12/17. She denies any recent fever, chills, cough, shortness of breath, chest pain, or urinary symptoms. PCP: Dr. 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 Normal coronaries on cardiac cath and EF 65% with mild AI, trace MR and TR on echo @ [facility] [place] 03/31) Pulmonary: Yes: Asthma, COPD, Pneumonia, Other (lung mass of undetermined etiology) Gastrointestinal: Yes: Constipation, Diverticulitis, Diverticulosis (small bowel diverticular perforation, scleroderma affecting the esophagus, Bonner's esophagus, Schatzki ring,GAVE syndrome, antral ulcer, gastroparesis related to scleroderma), GERD (with long segment Bonner's esophagus and patent Schatzki ring), Peptic Ulcer Disease (antral ulcer ), Other (Bonner's esophagus, GERD, Schatzki ring, perforation of small bowel diverticulum, antral ulcer, scleroderma causing esophageal dysmotility and gastroparesis, GERD with long segment Bonner's esophagus,Schatzki ring,GAVE syndrome) Renal/: Yes: Renal Failure Infectious Disease: Yes: MRSA (bursitis) Psych: Yes: Addictions (marijuana,tobacco and prescription narcotics) Musculoskeletal: Yes: Chronic low back pain, Other (has spinal stimulator) Rheumatology: Yes: Vasculitis, Other (Scleroderma, Raynauds and CREST syndrome) Endocrine: Yes: Hypothyroidism, Other (Malnutrition, osteoporosis) Dermatology: Yes: Cellulitis - Past Surgical History Past Surgical History: Yes: Appendectomy, Colonoscopy, Upper Endoscopy Additional Surgical History: Exploratory laparotomy with no findings 12/23/16 - Alcohol/Substance Use Hx Alcohol Use: No History of Substance Use: reports: Marijuana, Prescription - Smoking History Smoking history: Former smoker Have you smoked in the past 12 months: Yes Aproximately how many cigarettes per day: 10 If you are a former smoker, when did you quit?: 4 years ago - Social History Usual Living Arrangement: With Parent ADL: Independent Occupation: disabled History of Recent Travel: No Home Medications - Allergies Allergies/Adverse Reactions: Allergies Allergy/AdvReac Type Severity Reaction Status Date / Time Penicillins Allergy Severe Hives Verified 12/22/16 20:08 tomato AdvReac Uncoded 12/22/16 20:08 - Home Medications Home Medications: Ambulatory Orders Duloxetine HCl [Cymbalta -] 60 mg PO DAILY #30 capsule. 03/10/15 Albuterol 0.083% Nebulizer Cinthya [Ventolin 0.083% Nebulizer Soln -] 1 amp NEB Q4H PRN #1 amp 04/11/16 Aspirin [ASA -] 81 mg PO DAILY tab.chew 04/11/16 Budesonide/Formeterol Fumarate [SYMBICORT 80/4.5mcg -] 2 puff IH BID #1 inhaler 04/11/16 Polyethylene Glycol 3350 [Miralax 119 gm Btl -] 17 gm PO DAILY PRN 05/27/16 Ranitidine [Zantac -] 150 mg PO DAILY 05/27/16 Gabapentin [Neurontin -] 800 mg PO TID capsule 05/28/16 Aclidinium Kake [Tudorza -] 1 puff IH DAILY inhaler 07/20/16 Lactobacillus Acidophilus [Bacid -] 1 each PO DAILY #30 capsule 07/20/16 Metoclopramide HCl [Reglan -] 10 mg PO ACHS tablet 07/20/16 Acetaminophen [Tylenol .Regular Strength -] 650 mg PO Q6H PRN #0 tablet Hydroxychloroquine So4 [Plaquenil -] 200 mg PO BID tablet 07/31/16 Pantoprazole Sodium [Protonix -] 40 mg PO BID tablet.ec 07/31/16 Cyclobenzaprine HCl [Flexeril -] 5 mg PO BID PRN #20 tablet 09/16/16 Lidocaine 5% Patch [Lidoderm -] 2 patch TP DAILY #60 patch 09/16/16 Albuterol 2.5/Ipratropium 0.5 [Duoneb -] 1 amp NEB BID amp 12/17/16 Multivitamins [Multivit ([facility] Formulary)] 1 tab PO DAILY tab 12/17/16 Cephalexin Monohydrate [Keflex -] 500 mg PO TID #15 cap 12/18/16 Magnesium Oxide [Mag-Ox -] 400 mg PO BID #30 tablet MDD 2 12/18/16 Potassium Chloride [K-Dur -] 20 meq PO DAILY #30 tab 12/18/16 Family Disease History - Family Disease History Family Disease History: Diabetes: Father (HCV), Heart Disease: Father, Mother, Other: Father, Brother (HIV) Review of Systems - Review of Systems Constitutional: reports: Weakness Eyes: reports: No Symptoms HENT: reports: No Symptoms Neck: reports: No Symptoms Cardiovascular: reports: No Symptoms Respiratory: reports: No Symptoms Gastrointestinal: reports: Abdominal Pain, Nausea, Vomiting Genitourinary: reports: No Symptoms Musculoskeletal: reports: No Symptoms Integumentary: reports: No Symptoms Neurological: reports: No Symptoms Hematology/Lymphatic: reports: No Symptoms Psychiatric: reports: Anxiety - Risk Factors Known Risk Factors: Yes: Hypertension, Smoking, Other (scleroderma/CREST sysndrome) Vital Signs: Vital Signs Temperature 98.6 F 12/22/16 20:05 Pulse Rate 72 12/23/16 06:48 Respiratory Rate 19 12/23/16 06:48 Blood Pressure 145/93 12/23/16 06:48 O2 Sat by Pulse Oximetry (%) 96 12/23/16 06:48 Constitutional: Yes: Anxious Eyes: Yes: WNL HENT: Yes: WNL Neck: Yes: WNL Respiratory: Yes: Regular Gastrointestinal: Yes: Tenderness, Other (vertical surgical scar dressed, dry) Renal/: No: Anuria Cardiovascular: Yes: Tachycardia JVD: No Carotid Bruit: No PMI: Non-Displaced Heart Sounds: Yes: S1, S2, S4 Murmur: Yes: Systolic Murmur, Grade 1 Extremities: Yes: Cool, Other (amputations of several fingers) Edema: No Peripheral Pulses WNL: No Peripheral Pulses: 1+ Left Doralis Pedis, 1+ Right Dorsalis Pedis Integumentary: Yes: Other Neurological: Yes: Alert, Oriented Psychiatric: Yes: Other (addictive personality) - Other Data Labs, Other Data: CBC, BMP 12/23/16 10:00 12/23/16 10:00 INR, PTT INR Cancelled 12/23/16 10:00 Echo: Report Reviewed (normal LVEF; mild MR, AR and TR (2016 at [facility]) ) Ejection Fraction %: LVEF > or = 40 % Imaging - Results Chest X-ray: Image Reviewed (no acute cardiopulmonary pathology) EKG: Image Reviewed (NSR) Problem List - Problems (1) CREST (calcinosis, Raynaud's phenomenon, esophageal dysfunction, sclerodactyly, telangiectasia) Code(s): M34.1 - CR(E)ST SYNDROME (2) Abdominal pain Assessment/Plan: s/p surgery for pneumoperitoneum. Leukocytosis; on antibiotics. As noted by Dr. Leon, pt has hx small bowel diverticulum; gastroparesis/ retention exacerbated by addiction to narcotics. Code(s): R10.9 - UNSPECIFIED ABDOMINAL PAIN (3) COPD (chronic obstructive pulmonary disease) Code(s): J44.9 - CHRONIC OBSTRUCTIVE PULMONARY DISEASE, UNSPECIFIED (4) HTN (hypertension) Assessment/Plan: elevated BP and HR exacerbated by pain, anxeity.F/u throughout hospital course. Code(s): I10 - ESSENTIAL (PRIMARY) HYPERTENSION
[2016-12-23 15:50] LABS: MAGNESIUM 2.8 mg/dL (1.8-2.4)
--- NOTE | 2016-12-23 16:38 | PN ---
Progress Note (short form) - Note Progress Note: ID Consult dictated S/P exploratory laparotomy Possible perforated viscus PCN allergy Obtain c/s Empiric coverage bowel chelo with ceftriaxone/ flagyl
[2016-12-23 17:18] LABS: INR 1.2 (0.82-1.09); PROTHROMBIN TIME (PATIENT) 13.3 SEC (9.98-11.88)
[2016-12-23 17:20] LABS: ACTIVATED PTT 30.4 SECONDS (26.9-34.4)
[2016-12-23] MEDS: CEFTRIAXONE 50 ML IVPB SCH (17:51)
[2016-12-23] MEDS: METRONIDAZOLE 500 MG PREMIXED 100 ML IVPB SCH (18:45)
[2016-12-23] MEDS ORDERED: BUDESONIDE/FORMETEROL FUMARATE 80/4.5 mcg INHALER IH SCH (22:00)
[2016-12-23] MEDS ORDERED: ALBUTEROL SO4 2.5/IPRATROPIUM 0.5 INH SOL 3 ML VIAL.NEB. NEB SCH (22:00)
[2016-12-23] MEDS: ALBUTEROL SO4 2.5/IPRATROPIUM 0.5 INH SOL 3 ML VIAL.NEB. NEB SCH (22:15)
[2016-12-23] MEDS: HEPARIN NA (PORCINE) 5,000 UNITS/ML 1ML VIAL SQ SCH (22:41)
--- NOTE | 2016-12-23 23:38 | CONS ---
DATE OF CONSULTATION: DATE OF DICTATION: 12/23/2016 INFECTIOUS DISEASE CONSULTATION HISTORY OF PRESENT ILLNESS: A 51-year-old female with history of CREST syndrome, scleroderma, COPD, history of narcotic use for chronic pain syndrome, evaluated for leukocytosis. The patient presented to the emergency room with 3-day history of nausea and vomiting. On CAT scan of the abdomen and pelvis she was found to have a pneumoperitoneum and pneumatosis involving the stomach and small bowel. She was taken to the operating room where an exploratory laparotomy was performed. No bowel perforation was identified. No reports of peritonitis or abdominal/pelvic abscess. Her course was complicated by elevated white blood cell count. According to the notes, she had a similar presentation in the past which was treated conservatively. It was felt to be secondary to her connective tissue disorder. At the present time she is postoperative and complains of abdominal pain. She is afebrile. PAST MEDICAL HISTORY: Positive for scleroderma, CREST syndrome, COPD, hyperlipidemia. She was recently admitted to [facility] with acute respiratory failure believed to be secondary to oversedation from opiate analgesics. She has had numerous hospital admissions for COPD exacerbation and pneumonia. ALLERGIES: PENICILLIN. She has tolerated cephalosporins in the past. LABORATORY DATA: White count 13.6. PHYSICAL EXAMINATION: General: She is lethargic postoperative. Vital signs: Temperature 98.3, blood pressure 149/83, pulse 86 regular, respirations 20 per minute. HEENT: Sclerae anicteric. Cardiovascular: Heart sounds S1, S2. Respiratory: Lungs bilateral rhonchi. Abdomen: Soft. Positive incisional tenderness. A postoperative dressing is in place. Extremities: Negative for pedal edema. She has multiple finger amputations secondary to her connective tissue disease. IMPRESSION: 1. Status post exploratory laparotomy. 2. Possible perforated viscus. 3. PENICILLIN allergy. Obtain blood cultures. Empiric coverage for bowel chelo in this PENICILLIN allergic patient with ceftriaxone and Flagyl. Surgical and GI followup. Further recommendations pending cultures. Thank you for the kind referral. SHELBY FRANK M.D. 1 [id number]
[2016-12-24] MEDS: METRONIDAZOLE 500 MG PREMIXED 100 ML IVPB SCH ×3 (01:58→17:27)
[2016-12-24] MEDS ORDERED: HYDROmorphone *PCA* 10MG/50ML DISP.SYRIN PCA ONE ×3 (02:41→22:54)
[2016-12-24] MEDS: HYDROmorphone *PCA* 10MG/50ML DISP.SYRIN PCA SCH ×2 (02:50→16:33)
[2016-12-24 07:57] LABS: BASOPHIL 0.3 % (0-2.0); EOSINOPHIL 0.9 % (0-4.5); MCH 25.9 pg (25.7-33.7); MCHC 31.6 g/dl (32.0-36.0); MEAN CELL VOLUME 82.1 fl (80-96); MEAN PLT VOLUME 9.1 fl (7.5-11.1); NEUTROPHILS 83.4 % (42.8-82.8); PLATELET COUNT 373 K/MM3 (134-434); RDW 17.1 % (11.6-15.6); WHITE BLOOD COUNT 11.1 K/mm3 (4.0-10.0)
[2016-12-24 08:12] LABS: ALBUMIN 2.2 g/dl (3.4-5.0); ANION GAP 13 (8-16); CALCIUM 7.9 mg/dL (8.5-10.1); CO2 34 mmol/L (21-32); GLUCOSE,RANDOM 95 mg/dL (74-106); MAGNESIUM 2.1 mg/dL (1.8-2.4)
--- NOTE | 2016-12-24 08:19 | PN ---
Progress Note (short form) - Note Progress Note: POD #1 s/p Exploratory laparotomy Resting in position of comfort. Remains NPO. NGT on intermittent LWCS. Pain management via PRN meds. Denies n/v/f/c, CP or SOB. During the operation, no perforated viscous identified (ran the entire small bowel from treitz to terminal ileum; ascending colon to sigmoid; inspected stomach; entered lesser sac and duodenum). Last Vital Signs Temp Pulse Resp BP Pulse Ox 98 F 90 18 99/64 95 12/24/16 06:00 12/24/16 06:38 12/24/16 06:38 12/24/16 06:38 12/23/16 23:15 CBC, BMP 12/24/16 06:15 PE Gen: alert. nad. Nose: ngt on lwcs 1100mL Abd: midline incision intact with gopi. Clean. : lew 400mL (concentrated) Problem List - Problems (1) Pneumoperitoneum Assessment/Plan: POD #1 s/p exlap for pneumoperitoneum. Given patient's h/o of opioid dependence she is going to have a narcotic induced ileus NPO / IVF GI / DVT ppx OOB to chair Cont ngt to intermittent lws Monitor UOP Dressing changed on rounds CBC, BMP Code(s): K66.8 - OTHER SPECIFIED DISORDERS OF PERITONEUM (2) Opiate dependence Assessment/Plan: pain management consult Code(s): F11.20 - OPIOID DEPENDENCE, UNCOMPLICATED
[2016-12-24 08:23] LABS: ALK PHOS 33 U/L (45-117); BILIRUBIN,TOTAL 0.4 mg/dL (0.2-1.0); COCKROFT - GAULT 52.3515; CREATININE 0.9 mg/dL (0.55-1.02); SGOT/AST 20 U/L (15-37); SGPT/ALT 14 U/L (12-78); THYROID STIMULATING HORMONE 2.58 uIU/ml (0.358-3.74); TOT PROT 5.3 g/dl (6.4-8.2)
[2016-12-24] MEDS ORDERED: SODIUM CHLORIDE 1,000 ML IV SCH (08:39)
--- NOTE | 2016-12-24 08:41 | PN ---
Progress Note, Physician Chief Complaint: s/p laparoscopy for free air under diaphragm, consults meds and events noted and d.w pt pt axox3 nad on 7w NGT in; pt has some abdominal pain but feels hungry and thirsty - Current Medication List Current Medications: Active Medications Aclidinium [place] (Tudorza -) 1 puff IH BID [facility] Last Admin: 12/24/16 00:00 Dose: 1 inh Albuterol Sulfate (Ventolin 0.083% Nebulizer Soln -) 1 amp NEB Q4H PRN PRN Reason: SHORT OF BREATH/WHEEZING Albuterol/Ipratropium (Duoneb -) 1 amp NEB BID [facility] Last Admin: 12/23/16 22:15 Dose: Not Given Budesonide/Formoterol Fumarate (Symbicort 80/4.5mcg -) 2 puff IH BID [facility] Last Admin: 12/24/16 00:00 Dose: 2 inh Fentanyl (Sublimaze Injection -) 50 mcg IVPUSH [id number] PRN PRN Reason: PAIN Stop: 12/26/16 13:46 Last Admin: 12/23/16 14:20 Dose: 50 mcg Heparin Sodium (Porcine) (Heparin -) 5,000 unit SQ TID [facility] Last Admin: 12/23/16 22:41 Dose: 5,000 unit Hydromorphone HCl (Dilaudid Auto Driver -) 0 mg IN HOUSE CRA IN HOUSE CRA [facility] PRN Reason: Protocol Stop: 12/30/16 13:46 Last Admin: 12/24/16 02:50 Dose: 10 mg Pantoprazole Sodium (Protonix 40mg Ivpb (Pre-Docked)) 100 mls @ 200 mls/hr IVPB DAILY [facility] Ceftriaxone Sodium (Rocephin 1gm Ivpb (Pre-Docked)) 50 mls @ 100 mls/hr IVPB DAILY [facility] Last Admin: 12/23/16 17:51 Dose: 100 mls/hr Metronidazole (Flagyl 500mg Premixed Ivpb -) 100 mls @ 100 mls/hr IVPB Q8H-IV [facility] Last Admin: 12/24/16 01:58 Dose: 100 mls/hr Sodium Chloride (Normal Saline -) 1,000 mls @ 100 mls/hr IV ASDIR [facility] Stop: 12/24/16 09:24 Lidocaine (Lidoderm Patch -) 2 patch TP DAILY [facility] Ondansetron HCl (Zofran Injection) 4 mg IVPB Q8H PRN PRN Reason: NAUSEA - Objective Vital Signs: Vital Signs Temperature 98 F 12/24/16 06:00 Pulse Rate 90 12/24/16 06:38 Respiratory Rate 18 12/24/16 06:38 Blood Pressure 99/64 12/24/16 06:38 O2 Sat by Pulse Oximetry (%) 95 12/23/16 23:15 Constitutional: Yes: No Distress, Calm Eyes: Yes: Conjunctiva Clear HENT: Yes: Atraumatic Neck: Yes: Supple Cardiovascular: Yes: Regular Rate and Rhythm Respiratory: Yes: Rales Gastrointestinal: Yes: Tenderness. No: Distention Genitourinary: No: Hematuria Musculoskeletal: No: Joint Stiffness, Joint Swelling Extremities: No: Cold, Cool Edema: No Integumentary: No: Rash, Venous Stasis Changes Wound/Incision: Yes: Dressing Dry and Intact (abdminal) Neurological: Yes: WNL, Alert, Oriented ...Motor Strength: WNL Psychiatric: Yes: WNL, Alert, Oriented. No: Agitated, Suicidal Ideation Labs: CBC, BMP 12/24/16 06:15 12/24/16 06:15 INR, PTT INR 1.20 (0.82-1.09) H 12/23/16 15:45 - ....Imaging Other: Report Reviewed Assessment/Plan The patient is a 51 year old female with past medical history of cigarette smoking, prescription narcotics abuse, hyperlipidemia, COPD, asthma, scleroderma , gastroparesis, Raynaud's, multiple upper extremity digit amputations, and CREST syndrome who presents to the ED for 3 days of nausea and vomiting and abdominal pain; CXR showed free air under diaphragm; abdomen CT confirmed bowel perforation and dilated bowels. admitted to inpt, s/p exploratory lap r/o perforated viscus NPO, IVF; NGT IV antibiotics per ID iv PPI GI and surgery f/u cardio, pulm f/u DVT, aspiration, falls and decubs pfx d/w pt and staff prognosis guarded. t time 40 minutes
--- NOTE | 2016-12-24 09:04 | PN ---
Progress Note, Physician Chief Complaint: s/p ex lap diagnostic under general anesthesia History of Present Illness: post op day one, patient with history of chronic opioid use/abuse - Current Medication List Current Medications: Active Medications Aclidinium [place] (Tudorza -) 1 puff IH BID [facility] Last Admin: 12/24/16 00:00 Dose: 1 inh Albuterol Sulfate (Ventolin 0.083% Nebulizer Soln -) 1 amp NEB Q4H PRN PRN Reason: SHORT OF BREATH/WHEEZING Albuterol/Ipratropium (Duoneb -) 1 amp NEB BID [facility] Last Admin: 12/23/16 22:15 Dose: Not Given Budesonide/Formoterol Fumarate (Symbicort 80/4.5mcg -) 2 puff IH BID [facility] Last Admin: 12/24/16 00:00 Dose: 2 inh Fentanyl (Sublimaze Injection -) 50 mcg IVPUSH [id number] PRN PRN Reason: PAIN Stop: 12/26/16 13:46 Last Admin: 12/23/16 14:20 Dose: 50 mcg Heparin Sodium (Porcine) (Heparin -) 5,000 unit SQ TID [facility] Last Admin: 12/23/16 22:41 Dose: 5,000 unit Hydromorphone HCl (Dilaudid Account Leader -) 0 mg JAMMER HOOKER JAMMER HOOKER [facility] PRN Reason: Protocol Stop: 12/30/16 13:46 Last Admin: 12/24/16 02:50 Dose: 10 mg Pantoprazole Sodium (Protonix 40mg Ivpb (Pre-Docked)) 100 mls @ 200 mls/hr IVPB DAILY [facility] Ceftriaxone Sodium (Rocephin 1gm Ivpb (Pre-Docked)) 50 mls @ 100 mls/hr IVPB DAILY [facility] Last Admin: 12/23/16 17:51 Dose: 100 mls/hr Metronidazole (Flagyl 500mg Premixed Ivpb -) 100 mls @ 100 mls/hr IVPB Q8H-IV [facility] Last Admin: 12/24/16 01:58 Dose: 100 mls/hr Sodium Chloride (Normal Saline -) 1,000 mls @ 100 mls/hr IV ASDIR [facility] Stop: 12/24/16 09:24 Lidocaine (Lidoderm Patch -) 2 patch TP DAILY [facility] Ondansetron HCl (Zofran Injection) 4 mg IVPB Q8H PRN PRN Reason: NAUSEA - Objective Vital Signs: Vital Signs Temperature 98 F 12/24/16 06:00 Pulse Rate 90 12/24/16 06:38 Respiratory Rate 18 12/24/16 06:38 Blood Pressure 99/64 12/24/16 06:38 O2 Sat by Pulse Oximetry (%) 95 12/23/16 23:15 Constitutional: Yes: Mild Distress, Poor Hygeine, Thin Cardiovascular: Yes: WNL Respiratory: Yes: WNL Gastrointestinal: Yes: Other (Nasogastric tube in place) Labs: CBC, BMP 12/24/16 06:15 12/24/16 06:15 INR, PTT INR 1.20 (0.82-1.09) H 12/23/16 15:45 Assessment/Plan Patient says pain control not adequate, advised to ask the nurse for bolus breakthrough medication. Otherwise will continue JAMMER HOOKER at current settings until patient is able to take PO
--- NOTE | 2016-12-24 09:25 | PN ---
Progress Note (short form) - Note Progress Note: Attending Surgeon POD #1 Patient seen ane evaluated; concur w/ a/p as outlined by PA; d/w patient operative findings. Chris Burns MD FACS
[2016-12-24 09:32] LABS: URINE APPEARANCE CLEAR; URINE BILIRUBIN NEGATIVE (NEGATIVE); URINE BLOOD NEGATIVE (NEGATIVE); URINE COLOR AMBER; URINE GLUCOSE (UA) NEGATIVE (NEGATIVE); URINE KETONE NEGATIVE (NEGATIVE); URINE LEUK ESTERASE NEGATIVE (NEGATIVE); URINE NITRITE NEGATIVE (NEGATIVE); URINE UROBILINOGEN NEGATIVE E.U./dl (0.2-1.0)
[2016-12-24 09:43] LABS: URINE PROTEIN 1+ (NEGATIVE)
[2016-12-24 09:50] LABS: URINE MUCUS FEW; URINE RBC 53 /hpf (0-3); URINE WBC 4 /hpf (3-5)
[2016-12-24] MEDS ORDERED: LIDOCAINE 5% TOPICAL PATCH TP SCH (10:00)
[2016-12-24] MEDS ORDERED: ACLIDINIUM BROMIDE 400 MCG/INH AERO.POWD IH SCH ×2 (10:00)
[2016-12-24] MEDS: PANTOPRAZOLE SODIUM 100 ML IVPB SCH (10:45)
[2016-12-24] MEDS: CEFTRIAXONE 50 ML IVPB SCH (10:55)
--- NOTE | 2016-12-24 11:02 | OP ---
DATE OF OPERATION: 12/23/2016 PREOPERATIVE DIAGNOSIS: Pneumoperitoneum. POSTOPERATIVE DIAGNOSIS: No evidence of pneumoperitoneum. PROCEDURE: Exploratory laparotomy. SURGEON: Chris Burns MD. DIALYSIS REGISTERED NURSE: Abraham Muro PA-C. ANESTHESIA: General. OPERATIVE FINDINGS: There was no gross evidence of perforation of the GI tract involving the stomach, duodenum, jejunum, entire small bowel, and large bowel. Complete exploration was carried out looking for a source of gross pneumoperitoneum seen on abdominal x-rays and CAT scan and in this patient with evidence of an acute surgical abdomen. PROCEDURE: The patient was placed on the operating table in the supine position, and after the induction of general anesthesia, the patients abdomen was prepped with ChloraPrep and draped in the sterile fashion. Sequential compression devices were placed on the lower extremities and a Collier catheter prior to this. The peritoneal cavity was entered through a midline incision above and below the umbilicus. The complete abdominal exploration was carried out without evidence of gross perforation leading to pneumoperitoneum. There was some free fluid in the peritoneal cavity which was sent for culture and sensitivity. In addition to running the entire GI tract, the lesser sac was entered and the posterior stomach examined as well without evidence of perforation. At this point, the abdomen was closed in a single layer using continuous No. 1 looped PDS. The skin edges were reapproximated with surgical gopi and dry sterile dressings were placed, and the procedure was terminated at this point. The patient was aroused from general anesthesia and transferred to the post-anesthesia care unit in stable condition awake and alert. ESTIMATED BLOOD LOSS: Approximately 20 mL. REPLACEMENTS: Crystalloid. DRAINS: None. SPECIMENS: Culture and sensitivity of peritoneal fluid to microbiology. COUNTS: At the completion of the procedure, the needle, instrument, and sponge counts were verified as correct. I, Chris Burns, was physically present in the operating room from the time the patient was placed on the operating table until she was transferred to the post-anesthesia care unit in my accompaniment. MD MO Ramirez/[id number]
--- NOTE | 2016-12-24 11:03 | PN ---
Progress Note, Physician History of Present Illness: C/O abdominal pain NGT in place, draining bile Afebrile Tolerating cephalosporin WBC improved BC prelim no growth - Current Medication List Current Medications: Active Medications Aclidinium [place] (Tudorza -) 1 puff IH BID [facility] Last Admin: 12/24/16 00:00 Dose: 1 inh Albuterol Sulfate (Ventolin 0.083% Nebulizer Soln -) 1 amp NEB Q4H PRN PRN Reason: SHORT OF BREATH/WHEEZING Albuterol/Ipratropium (Duoneb -) 1 amp NEB BID [facility] Last Admin: 12/23/16 22:15 Dose: Not Given Budesonide/Formoterol Fumarate (Symbicort 80/4.5mcg -) 2 puff IH BID [facility] Last Admin: 12/24/16 00:00 Dose: 2 inh Fentanyl (Sublimaze Injection -) 50 mcg IVPUSH [id number] PRN PRN Reason: PAIN Stop: 12/26/16 13:46 Last Admin: 12/23/16 14:20 Dose: 50 mcg Heparin Sodium (Porcine) (Heparin -) 5,000 unit SQ TID [facility] Last Admin: 12/23/16 22:41 Dose: 5,000 unit Hydromorphone HCl (Dilaudid Transit Planner -) 0 mg BLOOD TESTER BLOOD TESTER [facility] PRN Reason: Protocol Stop: 12/30/16 13:46 Last Admin: 12/24/16 02:50 Dose: 10 mg Pantoprazole Sodium (Protonix 40mg Ivpb (Pre-Docked)) 100 mls @ 200 mls/hr IVPB DAILY [facility] Ceftriaxone Sodium (Rocephin 1gm Ivpb (Pre-Docked)) 50 mls @ 100 mls/hr IVPB DAILY [facility] Last Admin: 12/23/16 17:51 Dose: 100 mls/hr Metronidazole (Flagyl 500mg Premixed Ivpb -) 100 mls @ 100 mls/hr IVPB Q8H-IV [facility] Last Admin: 12/24/16 01:58 Dose: 100 mls/hr Lidocaine (Lidoderm Patch -) 2 patch TP DAILY [facility] Ondansetron HCl (Zofran Injection) 4 mg IVPB Q8H PRN PRN Reason: NAUSEA - Objective Vital Signs: Vital Signs Temperature 98 F 12/24/16 06:00 Pulse Rate 90 12/24/16 06:38 Respiratory Rate 18 12/24/16 06:38 Blood Pressure 99/64 12/24/16 06:38 O2 Sat by Pulse Oximetry (%) 95 12/23/16 23:15 Constitutional: Yes: No Distress, Cachectic Eyes: Yes: Conjunctiva Clear Cardiovascular: Yes: Regular Rate and Rhythm, S1, S2 Respiratory: Yes: Rhonchi Gastrointestinal: Yes: Normal Bowel Sounds, Soft, Tenderness, Other (+ Mild distention; mild diffuse tenderness) Edema: No Labs: CBC, BMP 12/24/16 06:15 12/24/16 06:15 INR, PTT INR 1.20 (0.82-1.09) H 12/23/16 15:45 Assessment/Plan Post op exploratory laparotomy Possible perforated viscus/ sepsis secondary to GI focus PCN allergy Continue empiric ceftriaxone/ flagyl
[2016-12-24] MEDS ORDERED: PT OWN MED DRAWER 7, Y5N ONE (13:15)
[2016-12-24] MEDS: ACLIDINIUM BROMIDE 400 MCG/INH AERO.POWD IH SCH ×3 (13:35→21:59)
[2016-12-24] MEDS: BUDESONIDE/FORMETEROL FUMARATE 80/4.5 mcg INHALER IH SCH ×3 (13:35→21:58)
[2016-12-24] MEDS: LIDOCAINE 5% TOPICAL PATCH TP SCH (13:46)
--- NOTE | 2016-12-24 14:04 | PN ---
Progress Note, Physician History of Present Illness: The patient is a 51 year old white female with past medical history of CREST syndrome, cigarette smoking (now on "electronic cigarette"), prescription narcotics abuse, hyperlipidemia, COPD, asthma, gastroparesis, Raynaud's, multiple upper extremity digit amputations, who presents to the ED for 3 days of nausea and vomiting. She describes the vomiting as nonbloody and nonbilious and is accompanied by a loss of appetite. She states that she experiences these symptoms often and relates them to her scleroderma. She denies any diarrhea. The patient states that she was recently discharged from the hospital on 12/17. She denies any recent fever, chills, cough, shortness of breath, chest pain, or urinary symptoms. - Current Medication List Current Medications: Active Medications Aclidinium [place] (Tudorza -) 1 puff IH BID [facility] Last Admin: 12/24/16 13:35 Dose: 1 inh Albuterol Sulfate (Ventolin 0.083% Nebulizer Soln -) 1 amp NEB Q4H PRN PRN Reason: SHORT OF BREATH/WHEEZING Albuterol/Ipratropium (Duoneb -) 1 amp NEB BID [facility] Last Admin: 12/23/16 22:15 Dose: Not Given Budesonide/Formoterol Fumarate (Symbicort 80/4.5mcg -) 2 puff IH BID [facility] Last Admin: 12/24/16 13:35 Dose: 2 inh Fentanyl (Sublimaze Injection -) 50 mcg IVPUSH [id number] PRN PRN Reason: PAIN Stop: 12/26/16 13:46 Last Admin: 12/23/16 14:20 Dose: 50 mcg Heparin Sodium (Porcine) (Heparin -) 5,000 unit SQ TID [facility] Last Admin: 12/23/16 22:41 Dose: 5,000 unit Hydromorphone HCl (Dilaudid Supervisory Examiner -) 0 mg PRIVATE MORTGAGE BANKER SAFE PRIVATE MORTGAGE BANKER SAFE [facility] PRN Reason: Protocol Stop: 12/30/16 13:46 Last Admin: 12/24/16 02:50 Dose: 10 mg Pantoprazole Sodium (Protonix 40mg Ivpb (Pre-Docked)) 100 mls @ 200 mls/hr IVPB DAILY [facility] Last Admin: 12/24/16 10:45 Dose: 200 mls/hr Ceftriaxone Sodium (Rocephin 1gm Ivpb (Pre-Docked)) 50 mls @ 100 mls/hr IVPB DAILY [facility] Last Admin: 12/24/16 10:55 Dose: 100 mls/hr Metronidazole (Flagyl 500mg Premixed Ivpb -) 100 mls @ 100 mls/hr IVPB Q8H-IV [facility] Last Admin: 12/24/16 10:40 Dose: 100 mls/hr Lidocaine (Lidoderm Patch -) 2 patch TP DAILY [facility] Last Admin: 12/24/16 13:46 Dose: 2 patch Ondansetron HCl (Zofran Injection) 4 mg IVPB Q8H PRN PRN Reason: NAUSEA - Objective Vital Signs: Vital Signs Temperature 98 F 12/24/16 06:00 Pulse Rate 90 12/24/16 06:38 Respiratory Rate 18 12/24/16 06:38 Blood Pressure 99/64 12/24/16 06:38 O2 Sat by Pulse Oximetry (%) 95 12/23/16 23:15 Eyes: Yes: WNL, Conjunctiva Clear, EOM Intact HENT: Yes: WNL, Atraumatic, Normocephalic Neck: Yes: WNL, Supple, Trachea Midline Cardiovascular: Yes: WNL, Regular Rate and Rhythm Respiratory: Yes: WNL, Regular, CTA Bilaterally Gastrointestinal: Yes: WNL, Normal Bowel Sounds Genitourinary: Yes: WNL Musculoskeletal: Yes: WNL Extremities: Yes: WNL Edema: No Integumentary: Yes: WNL Neurological: Yes: WNL, Alert, Oriented ...Motor Strength: WNL Psychiatric: Yes: WNL Labs: CBC, BMP 12/24/16 06:15 12/24/16 06:15 INR, PTT INR 1.20 (0.82-1.09) H 12/23/16 15:45 Assessment/Plan - Problems (1) CREST (calcinosis, Raynaud's phenomenon, esophageal dysfunction, sclerodactyly, telangiectasia) Code(s): M34.1 - CR(E)ST SYNDROME (2) Abdominal pain Assessment/Plan: s/p surgery for pneumoperitoneum. Leukocytosis; on antibiotics. As noted by Dr. Leon, pt has hx small bowel diverticulum; gastroparesis/ retention exacerbated by addiction to narcotics. Code(s): R10.9 - UNSPECIFIED ABDOMINAL PAIN (3) COPD (chronic obstructive pulmonary disease) Code(s): J44.9 - CHRONIC OBSTRUCTIVE PULMONARY DISEASE, UNSPECIFIED (4) HTN (hypertension) Assessment/Plan: elevated BP and HR exacerbated by pain, anxeity.F/u throughout hospital course. Code(s): I10 - ESSENTIAL (PRIMARY) HYPERTENSION
[2016-12-24] MEDS: HEPARIN NA (PORCINE) 5,000 UNITS/ML 1ML VIAL SQ SCH ×2 (14:25→23:16)
--- NOTE | 2016-12-24 16:05 | CONSULT ---
Consult - text type - Consultation Consultation Note: PM&R/Interventional Pain Mgmt Consult Note CC: Multifocal pain HPI: This is a 51 yo woman, well known to our clinic as she is a patient of Dr. Valentin. She had PMH of CREST syndrome and is on chronic opioid therapy for chronic pain. Her pain is medically managed on outpt basis by Dr. Valentin. Multiple attempts have been made in the past to wean her off of meds but all have been unsuccessful. She presented to the ER with 3 days of nausea and vomiting. She was diagnosed with an acute abdomen with pneumoperitoneum and underwent an ex lap. She is POD # 1 today with Ex lap. She is currently on Dilaudid TECHNICAL SERVICES LIBRARIAN for pain control. PMH: cigarette smoking (now on "electronic cigarette"), hyperlipidemia, COPD, asthma, gastroparesis, Raynaud's PSH: multiple upper extremity digit amputations A: 1. She is currently on Dilaudid TECHNICAL SERVICES LIBRARIAN, Which is being managed by Anesthesiology. 2. She is currently on Morphine IR 15mg BID and Oxycontin SR TID on outpt basis. 3. Recommend starting Oxycontin at 40mg TID and Morphine IR 15mg BID PRN for breakthrough pain, after the TECHNICAL SERVICES LIBRARIAN is discontinued. 4. I advised her she will get the reduced dose of meds while in house, compared to home regimen, as stronger meds can complicate the picture further by causing constipation post abdominal surgery. She still has an NG tube and she is currently NPO. 5. She is in agreement with the current regimen. I advised her to follow up and speak with Dr. Valentin about dose adjustments on outpt basis. 6. Thank you for the consult.
--- NOTE | 2016-12-24 16:10 | CON.PULM ---
Consult Consult Specialty:: PULMONARY Referred by:: Dr. Gonzalez Reason for Consultation:: COPD - History of Present Illness Chief Complaint: abdominal pain History of Present Illness: 51yo female with h/o scleroderma/CREST syndrome, hyperlipidemia, COPD, CAD, LV diastolic dysfunction, recent admission for respiratory failure from drug overdose who was admitted with nausea, vomiting and abdominal pain. Found to have pneumoperitoneum on CT A/P with pneumotosis of stomach and several bowel loops, taken to the OR for an exploratory laparotomy. No obvious perforations noted, closed without intervention. Denies shortness of breath or chest pain. + nonproductive cough. Only complaint is that she is hungry, wants to eat but still with abdominal pain. - History Source History Provided By: Patient, Medical Record Limitations to Obtaining History: No Limitations - Past Medical History DRY MOLDER: Yes: Peripheral Neuropathy Cardio/Vascular: Yes: Aortic Insufficiency (mild), Mitral Insufficiency (mild), Other (Raynaud's w/ multiple upper extremity digit amputations. Normal coronaries on cardiac cath and EF 65% with mild AI, trace MR and TR on echo @ [facility] 03/31) Pulmonary: Yes: Asthma, COPD, Pneumonia, Other (lung mass of undetermined etiology) Gastrointestinal: Yes: Constipation, Diverticulitis, Diverticulosis (small bowel diverticular perforation, scleroderma affecting the esophagus, Bonner's esophagus, Schatzki ring,GAVE syndrome, antral ulcer, gastroparesis related to scleroderma), GERD (with long segment Bonner's esophagus and patent Schatzki ring), Peptic Ulcer Disease (antral ulcer ), Other (Bonner's esophagus, GERD, Schatzki ring, perforation of small bowel diverticulum, antral ulcer, scleroderma causing esophageal dysmotility and gastroparesis, GERD with long segment Bonner's esophagus,Schatzki ring,GAVE syndrome) Renal/: Yes: Renal Failure ...LMP Comment: 39 yrs old ...: No Infectious Disease: Yes: MRSA (bursitis) Psych: Yes: Addictions (marijuana,tobacco and prescription narcotics) Musculoskeletal: Yes: Chronic low back pain, Other (has spinal stimulator) Rheumatology: Yes: Vasculitis, Other (Scleroderma, Raynauds and CREST syndrome) Endocrine: Yes: Hypothyroidism, Other (Malnutrition, osteoporosis) Dermatology: Yes: Cellulitis - Past Surgical History Past Surgical History: Yes: Appendectomy, Colonoscopy, Upper Endoscopy Additional Surgical History: Exploratory laparotomy with no findings 12/23/16 - Alcohol/Substance Use Hx Alcohol Use: No History of Substance Use: reports: Marijuana, Prescription - Smoking History Smoking history: Former smoker Have you smoked in the past 12 months: Yes Aproximately how many cigarettes per day: 10 If you are a former smoker, when did you quit?: 4 years ago - Social History Usual Living Arrangement: With Parent ADL: Independent Occupation: disabled History of Recent Travel: No Home Medications - Allergies Allergies/Adverse Reactions: Allergies Allergy/AdvReac Type Severity Reaction Status Date / Time Penicillins Allergy Severe Hives Verified 12/22/16 20:08 tomato AdvReac Uncoded 12/22/16 20:08 - Home Medications Home Medications: Ambulatory Orders Duloxetine HCl [Cymbalta -] 60 mg PO DAILY #30 capsule. 03/10/15 Albuterol 0.083% Nebulizer Cinthya [Ventolin 0.083% Nebulizer Soln -] 1 amp NEB Q4H PRN #1 amp 04/11/16 Aspirin [ASA -] 81 mg PO DAILY tab.chew 04/11/16 Budesonide/Formeterol Fumarate [SYMBICORT 80/4.5mcg -] 2 puff IH BID #1 inhaler 04/11/16 Polyethylene Glycol 3350 [Miralax 119 gm Btl -] 17 gm PO DAILY PRN 05/27/16 Ranitidine [Zantac -] 150 mg PO DAILY 05/27/16 Gabapentin [Neurontin -] 800 mg PO TID capsule 05/28/16 Aclidinium [place] [Tudorza -] 1 puff IH DAILY inhaler 07/20/16 Lactobacillus Acidophilus [Bacid -] 1 each PO DAILY #30 capsule 07/20/16 Metoclopramide HCl [Reglan -] 10 mg PO ACHS tablet 07/20/16 Acetaminophen [Tylenol .Regular Strength -] 650 mg PO Q6H PRN #0 tablet Hydroxychloroquine So4 [Plaquenil -] 200 mg PO BID tablet 07/31/16 Pantoprazole Sodium [Protonix -] 40 mg PO BID tablet.ec 07/31/16 Cyclobenzaprine HCl [Flexeril -] 5 mg PO BID PRN #20 tablet 09/16/16 Lidocaine 5% Patch [Lidoderm -] 2 patch TP DAILY #60 patch 09/16/16 Albuterol 2.5/Ipratropium 0.5 [Duoneb -] 1 amp NEB BID amp 12/17/16 Multivitamins [Multivit ([facility])] 1 tab PO DAILY tab 12/17/16 Cephalexin Monohydrate [Keflex -] 500 mg PO TID #15 cap 12/18/16 Magnesium Oxide [Mag-Ox -] 400 mg PO BID #30 tablet MDD 2 12/18/16 Potassium Chloride [K-Dur -] 20 meq PO DAILY #30 tab 12/18/16 Family Disease History - Family Disease History Family Disease History: Diabetes: Father (HCV), Heart Disease: Father, Mother, Other: Father, Brother (HIV) Review of Systems - Review of Systems Constitutional: reports: Loss of Appetite. denies: Chills, Fever Eyes: denies: Recent Change in Vision HENT: denies: Nasal Congestion, Throat Pain Neck: denies: Stiffness, Tenderness Cardiovascular: denies: Chest Pain, Palpitations, Shortness of Breath Respiratory: reports: Cough, SOB on Exertion, Wheezing. denies: Hemoptysis Gastrointestinal: reports: Abdominal Pain, Nausea Genitourinary: denies: Dysuria, Hematuria Neurological: denies: Dizziness, Headache Physical Exam Vital Sings: Vital Signs Temperature 98 F 12/24/16 06:00 Pulse Rate 90 12/24/16 06:38 Respiratory Rate 18 12/24/16 06:38 Blood Pressure 99/64 12/24/16 06:38 O2 Sat by Pulse Oximetry (%) 95 12/23/16 23:15 Constitutional: Yes: Calm Eyes: Yes: Conjunctiva Clear, EOM Intact HENT: Yes: Atraumatic, Normocephalic Neck: Yes: Supple, Trachea Midline Cardiovascular: Yes: Regular Rate and Rhythm Respiratory: Yes: Rhonchi (scattered) ...Clubbing: No Gastrointestinal: Yes: Normal Bowel Sounds, Soft, Distention, Tenderness Edema: No Neurological: Yes: Alert, Oriented Labs: CBC, BMP 12/24/16 06:15 12/24/16 06:15 Imaging - Results Chest X-ray: Report Reviewed, Image Reviewed (bibasilar atelectasis) Problem List - Problems (1) Pneumoperitoneum Code(s): K66.8 - OTHER SPECIFIED DISORDERS OF PERITONEUM (2) CREST syndrome Code(s): M34.1 - CR(E)ST SYNDROME (3) Scleroderma Code(s): M34.9 - SYSTEMIC SCLEROSIS, UNSPECIFIED (4) COPD (chronic obstructive pulmonary disease) Code(s): J44.9 - CHRONIC OBSTRUCTIVE PULMONARY DISEASE, UNSPECIFIED (5) Atelectasis Code(s): J98.11 - ATELECTASIS (6) Lactic acidosis Code(s): E87.2 - ACIDOSIS (7) Opioid dependence, uncomplicated Code(s): F11.20 - OPIOID DEPENDENCE, UNCOMPLICATED Assessment/Plan Pneumoperitoneum s/p ex-laparotomy COPD Atelectasis Scleroderma/CREST syndrome - pain control - do not suspect pneumonia on CXR, more likely atelectasis from recent abdominal surgery - incentive spirometry - inhaled bronchodilators standing and PRN - can defer systemic steroids at this time - O2 as needed - NGT/PO per GI - DVT prophylaxis Thank you for this consult Hai Youngblood MD
[2016-12-24] MEDS: D5-1/2NS+20 MEQ KCL - 1,000 ML IV SCH (17:26)
[2016-12-24 21:37] LABS: URINE MARIJUANA THC POSITIVE ng/ml (CUTOFF=50)
[2016-12-24] MEDS ORDERED: HYDROmorphone *PCA* 10MG/50ML DISP.SYRIN PCA SCH ×2 (22:54→23:00)
[2016-12-24] MEDS: ALBUTEROL SO4 2.5/IPRATROPIUM 0.5 INH SOL 3 ML VIAL.NEB. NEB SCH (23:28)
[2016-12-25] MEDS: HEPARIN NA (PORCINE) 5,000 UNITS/ML 1ML VIAL SQ SCH ×4 (00:52→22:25)
[2016-12-25] MEDS: METRONIDAZOLE 500 MG PREMIXED 100 ML IVPB SCH ×3 (02:01→18:03)
[2016-12-25 08:01] LABS: EOSINOPHIL 8.1 % (0-4.5); MCHC 31.9 g/dl (32.0-36.0); MEAN CELL VOLUME 81.4 fl (80-96); MEAN PLT VOLUME 8.6 fl (7.5-11.1); NEUTROPHILS 70.6 % (42.8-82.8); PLATELET COUNT 319 K/MM3 (134-434)
[2016-12-25 08:02] LABS: BASOPHIL 0.3 % (0-2.0)
[2016-12-25 08:24] LABS: ALBUMIN 1.9 g/dl (3.4-5.0); ALK PHOS 31 U/L (45-117); ANION GAP 9 (8-16); BILIRUBIN,TOTAL 0.6 mg/dL (0.2-1.0); CALCIUM 8.1 mg/dL (8.5-10.1); CO2 36 mmol/L (21-32); COCKROFT - GAULT 67.3115; CREATININE 0.7 mg/dL (0.55-1.02); GLUCOSE,RANDOM 85 mg/dL (74-106); SGOT/AST 19 U/L (15-37); SGPT/ALT 13 U/L (12-78); TOT PROT 4.9 g/dl (6.4-8.2)
--- NOTE | 2016-12-25 08:47 | PN ---
Progress Note (short form) - Note Progress Note: Attending Surgeon POD#2 No c/o; no flatus VSS AF abdomen-soft; less distended; tympanitic; dressing c/d/i WBC-nl IMP: stable post op PLAN: Continue NPO/IVF/NGT/pilmonary toilet/OOB
--- NOTE | 2016-12-25 09:37 | PN ---
Progress Note, Physician Chief Complaint: aox3 nad NGT still in, pt asked for food and water; d/w pt she can not eat until NGT stops draining which means it could be DCd; NGT drained less today ( half the amount of yesterday) a little less abdominal pain, cough sounds congested no CP/SOB; afebrile meds tests and consults reviwed and d/w pt - Current Medication List Current Medications: Active Medications Aclidinium [place] (Tudorza -) 1 puff IH BID [facility] Last Admin: 12/24/16 21:59 Dose: 1 inh Albuterol Sulfate (Ventolin 0.083% Nebulizer Soln -) 1 amp NEB Q4H PRN PRN Reason: SHORT OF BREATH/WHEEZING Albuterol/Ipratropium (Duoneb -) 1 amp NEB BID [facility] Last Admin: 12/24/16 23:28 Dose: Not Given Budesonide/Formoterol Fumarate (Symbicort 80/4.5mcg -) 2 puff IH BID [facility] Last Admin: 12/24/16 21:58 Dose: 1 inh Fentanyl (Sublimaze Injection -) 50 mcg IVPUSH [id number] PRN PRN Reason: PAIN Stop: 12/26/16 13:46 Last Admin: 12/23/16 14:20 Dose: 50 mcg Heparin Sodium (Porcine) (Heparin -) 5,000 unit SQ TID [facility] Last Admin: 12/25/16 05:58 Dose: 5,000 unit Hydromorphone HCl (Dilaudid [employer] Services Director -) 10 mg PARK KEEPER PARK KEEPER RAISSA PRN Reason: Protocol Stop: 12/30/16 13:46 Last Admin: 12/24/16 23:03 Dose: 10 mg Pantoprazole Sodium (Protonix 40mg Ivpb (Pre-Docked)) 100 mls @ 200 mls/hr IVPB DAILY [facility] Last Admin: 12/24/16 10:45 Dose: 200 mls/hr Ceftriaxone Sodium (Rocephin 1gm Ivpb (Pre-Docked)) 50 mls @ 100 mls/hr IVPB DAILY [facility] Last Admin: 12/24/16 10:55 Dose: 100 mls/hr Metronidazole (Flagyl 500mg Premixed Ivpb -) 100 mls @ 100 mls/hr IVPB Q8H-IV [facility] Last Admin: 12/25/16 02:01 Dose: 100 mls/hr Potassium Chloride/Dextrose/Sod Cl (D5-1/2ns+20 Meq Kcl -) 1,000 mls @ 75 mls/ hr IV ASDIR [facility] Last Admin: 12/24/16 17:26 Dose: 75 mls/hr Lidocaine (Lidoderm Patch -) 2 patch TP DAILY [facility] Last Admin: 12/24/16 13:46 Dose: 2 patch Ondansetron HCl (Zofran Injection) 4 mg IVPB Q8H PRN PRN Reason: NAUSEA - Objective Vital Signs: Vital Signs Temperature 98.9 F 12/25/16 06:00 Pulse Rate 77 12/25/16 07:03 Respiratory Rate 20 12/25/16 07:03 Blood Pressure 120/71 12/25/16 07:03 O2 Sat by Pulse Oximetry (%) 94 L 12/24/16 21:00 Constitutional: Yes: No Distress, Calm Eyes: Yes: Conjunctiva Clear HENT: Yes: Atraumatic Neck: Yes: Supple Cardiovascular: Yes: Regular Rate and Rhythm Respiratory: Yes: Rales (bilateral) Gastrointestinal: Yes: Soft, Tenderness Genitourinary: No: Hematuria Musculoskeletal: No: Joint Stiffness, Joint Swelling Extremities: No: Cold, Cool Edema: No Integumentary: No: Rash, Venous Stasis Changes Neurological: Yes: WNL, Alert, Oriented ...Motor Strength: WNL Psychiatric: Yes: WNL, Alert, Oriented. No: Agitated Labs: CBC, BMP 12/25/16 06:00 12/25/16 06:00 INR, PTT INR 1.20 (0.82-1.09) H 12/23/16 15:45 - ....Imaging Other: Report Reviewed Assessment/Plan The patient is a 51 year old female with past medical history of cigarette smoking, prescription narcotics abuse, hyperlipidemia, COPD, asthma, scleroderma , gastroparesis, Raynaud's, multiple upper extremity digit amputations, and CREST syndrome who presents to the ED for 3 days of nausea and vomiting and abdominal pain; CXR showed free air under diaphragm; abdomen CT confirmed bowel perforation and dilated bowels. admitted to inpt, s/p exploratory lap r/o perforated viscus NPO, IVF; NGT will d/w GI and surgery if possible to be removed soon IV antibiotics per ID iv PPI wound care GI and surgery f/u cardio, pulm f/u DVT, aspiration, falls and decubs pfx d/w pt and staff prognosis guarded. t time 40 minutes
[2016-12-25] MEDS: CEFTRIAXONE 50 ML IVPB SCH (09:57)
[2016-12-25] MEDS: PANTOPRAZOLE SODIUM 100 ML IVPB SCH (10:02)
[2016-12-25] MEDS: ALBUTEROL SO4 2.5/IPRATROPIUM 0.5 INH SOL 3 ML VIAL.NEB. NEB SCH ×2 (10:18→22:44)
[2016-12-25] MEDS ORDERED: ACETAMINOPHEN 1000 MG/100 ML VIAL (NON FORMULARY) IVPB PRN (11:08)
--- NOTE | 2016-12-25 11:08 | PN ---
Progress Note (short form) - Note Progress Note: Pain follow up S/P Ex-LAp on IV Dilaudid REHABILITATION ENGINEER Still c/o pain, agreed on intermittent doses of pain meds. Orders are written. Maritza Mathew.
[2016-12-25] MEDS: LIDOCAINE 5% TOPICAL PATCH TP SCH (12:01)
[2016-12-25] MEDS: BUDESONIDE/FORMETEROL FUMARATE 80/4.5 mcg INHALER IH SCH ×2 (12:06→22:25)
[2016-12-25] MEDS: ACLIDINIUM BROMIDE 400 MCG/INH AERO.POWD IH SCH ×2 (12:06→22:25)
[2016-12-25] MEDS: HYDROmorphone HCL CARPU-JECT 1 MG/1 ML DISP.SYRIN IVPUSH PRN ×2 (12:09→16:59)
[2016-12-25] MEDS: KCL 10 MEQ IVPB 100 ML IVPB SCH ×3 (12:33→15:33)
--- NOTE | 2016-12-25 17:07 | PN ---
Progress Note (short form) - Note Progress Note: PULMONARY VSS/AFEBRILE NGT IN PLACE WITH SIGNIFICANT OUTPUT ANICTERIC CHEST SCATTERED MINIMAL RHONCHI S1S2 BS+ NO EDEMA LABS/MEDS/NOTES/IMAGING Pneumoperitoneum s/p ex-laparotomy COPD Atelectasis Scleroderma/CREST syndrome - pain control - incentive spirometry - inhaled bronchodilators standing and PRN - can defer systemic steroids at this time - O2 as needed - NGT/PO per GI - DVT prophylaxis Sandra ZAPIEN MD
[2016-12-25] MEDS: D5-1/2NS+20 MEQ KCL - 1,000 ML IV SCH (18:14)
[2016-12-26] MEDS: D5-1/2NS+20 MEQ KCL - 1,000 ML IV SCH ×2 (01:38→16:43)
[2016-12-26] MEDS: METRONIDAZOLE 500 MG PREMIXED 100 ML IVPB SCH ×3 (01:38→22:27)
[2016-12-26] MEDS: HEPARIN NA (PORCINE) 5,000 UNITS/ML 1ML VIAL SQ SCH ×3 (06:37→22:28)
[2016-12-26 07:21] LABS: BASOPHIL 0.3 % (0-2.0); EOSINOPHIL 5.2 % (0-4.5); MCH 26.2 pg (25.7-33.7); MCHC 32.3 g/dl (32.0-36.0); MEAN CELL VOLUME 81.1 fl (80-96); MEAN PLT VOLUME 8.9 fl (7.5-11.1); NEUTROPHILS 77.7 % (42.8-82.8); PLATELET COUNT 362 K/MM3 (134-434); RDW 17.4 % (11.6-15.6); WHITE BLOOD COUNT 8.8 K/mm3 (4.0-10.0)
[2016-12-26 07:37] LABS: CALCIUM 8.4 mg/dL (8.5-10.1); COCKROFT - GAULT 78.5315; CREATININE 0.6 mg/dL (0.55-1.02); MAGNESIUM 1.9 mg/dL (1.8-2.4)
--- NOTE | 2016-12-26 08:22 | PN ---
Addendum entered and electronically signed by Abraham Muro PA 04 12:57: Since placing patient's ng tube to bedside bag at 8AM, she has put out 400mL. C/ o little nausea. Placing patient back on intermittent low wall suction. Dr. Burns made aware. Original Note: Progress Note (short form) - Note Progress Note: POD #3 Alert. In position of comfort. States she is passing a little flatus. Hasn't gotten out of bed yet. Using her incentive spirometer. Denies n/v/f/c, CP or SOB Last Vital Signs Temp Pulse Resp BP Pulse Ox 98.6 F 78 20 140/80 96 12/26/16 06:00 12/26/16 06:00 12/26/16 06:00 12/26/16 06:00 12/25/16 09:00 CBC, BMP 12/26/16 06:10 12/26/16 06:10 OUTPUT 12/25/16 12/25/16 12/26/16 12/26/16 05:43 22:21 06:00 06:41 NGT 600 Lew 50 400 100 PE Gen: alert. nad Abd: significant decrease in distension. Less tympanic. Bowel sounds absent. Midline incision intact with gopi. Clean. : poor urine output (only 550/24hrs; concentrated) LE: SCDs b/l. soft. nt b/l Problem List - Problems (1) Pneumoperitoneum Assessment/Plan: POD #3 s/p Ex-lap for pneumoperitoneum NGT to bedside bag Keep lew and cont to monitor UOP Aggressive mobilization --> OOB and ambulate Awaiting bowel function to resume before starting clear liquid diet GI / DVT PPX CBC, BMP in AM Incentive spirometer Code(s): K66.8 - OTHER SPECIFIED DISORDERS OF PERITONEUM (2) Opiate dependence Code(s): F11.20 - OPIOID DEPENDENCE, UNCOMPLICATED
--- NOTE | 2016-12-26 08:45 | PN ---
Progress Note, Physician Chief Complaint: in bed NGT still in pt wants to eat said she is hungry; to dw surgery on/off abdominal pain - Current Medication List Current Medications: Active Medications Aclidinium [place] (Tudorza -) 1 puff IH BID [facility] Last Admin: 12/25/16 22:25 Dose: 1 inh Albuterol Sulfate (Ventolin 0.083% Nebulizer Soln -) 1 amp NEB Q4H PRN PRN Reason: SHORT OF BREATH/WHEEZING Albuterol/Ipratropium (Duoneb -) 1 amp NEB BID [facility] Last Admin: 12/25/16 22:44 Dose: Not Given Budesonide/Formoterol Fumarate (Symbicort 80/4.5mcg -) 2 puff IH BID [facility] Last Admin: 12/25/16 22:25 Dose: 2 inh Fentanyl (Sublimaze Injection -) 50 mcg IVPUSH [id number] PRN PRN Reason: PAIN Stop: 12/26/16 13:46 Last Admin: 12/23/16 14:20 Dose: 50 mcg Heparin Sodium (Porcine) (Heparin -) 5,000 unit SQ TID [facility] Last Admin: 12/26/16 06:37 Dose: 5,000 unit Hydromorphone HCl (Dilaudid Injection -) 1 mg IVPUSH Q4H PRN PRN Reason: PAIN Last Admin: 12/25/16 16:59 Dose: 1 mg Pantoprazole Sodium (Protonix 40mg Ivpb (Pre-Docked)) 100 mls @ 200 mls/hr IVPB DAILY [facility] Last Admin: 12/25/16 10:02 Dose: 200 mls/hr Ceftriaxone Sodium (Rocephin 1gm Ivpb (Pre-Docked)) 50 mls @ 100 mls/hr IVPB DAILY [facility] Last Admin: 12/25/16 09:57 Dose: 100 mls/hr Metronidazole (Flagyl 500mg Premixed Ivpb -) 100 mls @ 100 mls/hr IVPB Q8H-IV [facility] Last Admin: 12/26/16 01:38 Dose: 100 mls/hr Potassium Chloride/Dextrose/Sod Cl (D5-1/2ns+20 Meq Kcl -) 1,000 mls @ 75 mls/ hr IV ASDIR [facility] Last Admin: 12/26/16 01:38 Dose: 75 mls/hr Lidocaine (Lidoderm Patch -) 2 patch TP DAILY [facility] Last Admin: 12/25/16 12:01 Dose: 2 patch Ondansetron HCl (Zofran Injection) 4 mg IVPB Q8H PRN PRN Reason: NAUSEA - Objective Vital Signs: Vital Signs Temperature 98.6 F 12/26/16 06:00 Pulse Rate 78 12/26/16 06:00 Respiratory Rate 20 12/26/16 06:00 Blood Pressure 140/80 12/26/16 06:00 O2 Sat by Pulse Oximetry (%) 96 12/25/16 09:00 Constitutional: Yes: No Distress, Calm Eyes: Yes: Conjunctiva Clear HENT: Yes: Atraumatic Neck: Yes: Supple Cardiovascular: Yes: Regular Rate and Rhythm Respiratory: Yes: CTA Bilaterally Gastrointestinal: Yes: Soft Genitourinary: No: CVA Tenderness - Left, CVA Tenderness - Right Musculoskeletal: No: Joint Stiffness, Joint Swelling Extremities: No: Cold, Cool Edema: No Neurological: Yes: WNL, Alert, Oriented ...Motor Strength: WNL Psychiatric: Yes: WNL, Alert, Oriented. No: Agitated Labs: CBC, BMP 12/26/16 06:10 12/26/16 06:10 INR, PTT INR 1.20 (0.82-1.09) H 12/23/16 15:45 - ....Imaging Other: Report Reviewed Assessment/Plan The patient is a 51 year old female with past medical history of cigarette smoking, prescription narcotics abuse, hyperlipidemia, COPD, asthma, scleroderma , gastroparesis, Raynaud's, multiple upper extremity digit amputations, and CREST syndrome who presents to the ED for 3 days of nausea and vomiting and abdominal pain; CXR showed free air under diaphragm; abdomen CT confirmed bowel perforation and dilated bowels. admitted to inpt, s/p exploratory lap r/o perforated viscus NPO, IVF; NGT will d/w GI and surgery if possible to remove NGT IV antibiotics per ID iv PPI wound care GI and surgery f/u cardio, pulm f/u DVT, aspiration, falls and decubs pfx d/w pt and staff OOB
[2016-12-26] MEDS: HYDROmorphone HCL CARPU-JECT 1 MG/1 ML DISP.SYRIN IVPUSH PRN (09:03)
[2016-12-26] MEDS: ALBUTEROL SO4 2.5/IPRATROPIUM 0.5 INH SOL 3 ML VIAL.NEB. NEB SCH ×2 (10:15→22:23)
[2016-12-26] MEDS: BUDESONIDE/FORMETEROL FUMARATE 80/4.5 mcg INHALER IH SCH ×2 (10:39→22:28)
--- NOTE | 2016-12-26 10:39 | PN ---
Progress Note, Physician Chief Complaint: Pt has no chest pain or dyspnea; +abdominal discomfort; feels she is stil in pain. History of Present Illness: The patient is a 51 year old white female with past medical history of CREST syndrome, cigarette smoking (now on "electronic cigarette"), prescription narcotics abuse, hyperlipidemia, COPD, asthma, gastroparesis, Raynaud's, multiple upper extremity digit amputations, who presents to the ED for 3 days of nausea and vomiting. She describes the vomiting as nonbloody and nonbilious and is accompanied by a loss of appetite. She states that she experiences these symptoms often and relates them to her scleroderma. She denies any diarrhea. The patient states that she was recently discharged from the hospital on 12/17. She denies any recent fever, chills, cough, shortness of breath, chest pain, or urinary symptoms. PCP: Dr. Eva Gonzalez - Current Medication List Current Medications: Active Medications Aclidinium [place] (Tudorza -) 1 puff IH BID [facility] Last Admin: 12/25/16 22:25 Dose: 1 inh Albuterol Sulfate (Ventolin 0.083% Nebulizer Soln -) 1 amp NEB Q4H PRN PRN Reason: SHORT OF BREATH/WHEEZING Albuterol/Ipratropium (Duoneb -) 1 amp NEB BID [facility] Last Admin: 12/25/16 22:44 Dose: Not Given Budesonide/Formoterol Fumarate (Symbicort 80/4.5mcg -) 2 puff IH BID [facility] Last Admin: 12/25/16 22:25 Dose: 2 inh Fentanyl (Sublimaze Injection -) 50 mcg IVPUSH [id number] PRN PRN Reason: PAIN Stop: 12/26/16 13:46 Last Admin: 12/23/16 14:20 Dose: 50 mcg Heparin Sodium (Porcine) (Heparin -) 5,000 unit SQ TID [facility] Last Admin: 12/26/16 06:37 Dose: 5,000 unit Hydromorphone HCl (Dilaudid Injection -) 1 mg IVPUSH Q4H PRN PRN Reason: PAIN Last Admin: 12/26/16 09:03 Dose: 1 mg Pantoprazole Sodium (Protonix 40mg Ivpb (Pre-Docked)) 100 mls @ 200 mls/hr IVPB DAILY [facility] Last Admin: 12/25/16 10:02 Dose: 200 mls/hr Ceftriaxone Sodium (Rocephin 1gm Ivpb (Pre-Docked)) 50 mls @ 100 mls/hr IVPB DAILY [facility] Last Admin: 12/25/16 09:57 Dose: 100 mls/hr Metronidazole (Flagyl 500mg Premixed Ivpb -) 100 mls @ 100 mls/hr IVPB Q8H-IV [facility] Last Admin: 12/26/16 01:38 Dose: 100 mls/hr Potassium Chloride/Dextrose/Sod Cl (D5-1/2ns+20 Meq Kcl -) 1,000 mls @ 75 mls/ hr IV ASDIR RAISSA Last Admin: 12/26/16 01:38 Dose: 75 mls/hr Lidocaine (Lidoderm Patch -) 2 patch TP DAILY [facility] Last Admin: 12/25/16 12:01 Dose: 2 patch Ondansetron HCl (Zofran Injection) 4 mg IVPB Q8H PRN PRN Reason: NAUSEA - Objective Vital Signs: Vital Signs Temperature 98.6 F 12/26/16 06:00 Pulse Rate 78 12/26/16 06:00 Respiratory Rate 20 12/26/16 06:00 Blood Pressure 140/80 12/26/16 06:00 O2 Sat by Pulse Oximetry (%) 96 12/25/16 09:00 Constitutional: Yes: Anxious Eyes: Yes: WNL HENT: Yes: WNL Labs: CBC, BMP 12/26/16 06:10 12/26/16 06:10 INR, PTT INR 1.20 (0.82-1.09) H 12/23/16 15:45 Problem List - Problems (1) CREST (calcinosis, Raynaud's phenomenon, esophageal dysfunction, sclerodactyly, telangiectasia) Code(s): M34.1 - CR(E)ST SYNDROME (2) Abdominal pain Assessment/Plan: s/p surgery for pneumoperitoneum. Leukocytosis; on antibiotics and pain medication. As noted by Dr. Leon, pt has hx small bowel diverticulum; gastroparesis/ retention exacerbated by addiction to narcotics. Code(s): R10.9 - UNSPECIFIED ABDOMINAL PAIN (3) COPD (chronic obstructive pulmonary disease) Code(s): J44.9 - CHRONIC OBSTRUCTIVE PULMONARY DISEASE, UNSPECIFIED (4) HTN (hypertension) Assessment/Plan: elevated BP and HR exacerbated by pain, anxeity.F/u throughout hospital course. Code(s): I10 - ESSENTIAL (PRIMARY) HYPERTENSION (5) Opiate dependence Assessment/Plan: The imperative need to join a program with gradual weaning from the many medications she takes was discussed in detail. Code(s): F11.20 - OPIOID DEPENDENCE, UNCOMPLICATED
[2016-12-26] MEDS: ACLIDINIUM BROMIDE 400 MCG/INH AERO.POWD IH SCH ×2 (10:40→22:28)
[2016-12-26] MEDS: PANTOPRAZOLE SODIUM 100 ML IVPB SCH (10:45)
[2016-12-26] MEDS: CEFTRIAXONE 50 ML IVPB SCH (10:45)
--- NOTE | 2016-12-26 12:09 | PN ---
Progress Note, Physician History of Present Illness: The patient is a 51 year old white female with past medical history of CREST syndrome, cigarette smoking (now on "electronic cigarette"), prescription narcotics abuse, hyperlipidemia, COPD, asthma, gastroparesis, Raynaud's, multiple upper extremity digit amputations, who presents to the ED for 3 days of nausea and vomiting. She describes the vomiting as nonbloody and nonbilious and is accompanied by a loss of appetite. She states that she experiences these symptoms often and relates them to her scleroderma. She denies any diarrhea. The patient states that she was recently discharged from the hospital on 12/17. She denies any recent fever, chills, cough, shortness of breath, chest pain, or urinary symptoms. - Current Medication List Current Medications: Active Medications Aclidinium [place] (Tudorza -) 1 puff IH BID [facility] Last Admin: 12/25/16 22:25 Dose: 1 inh Albuterol Sulfate (Ventolin 0.083% Nebulizer Soln -) 1 amp NEB Q4H PRN PRN Reason: SHORT OF BREATH/WHEEZING Albuterol/Ipratropium (Duoneb -) 1 amp NEB BID [facility] Last Admin: 12/26/16 10:15 Dose: Not Given Budesonide/Formoterol Fumarate (Symbicort 80/4.5mcg -) 2 puff IH BID [facility] Last Admin: 12/25/16 22:25 Dose: 2 inh Fentanyl (Sublimaze Injection -) 50 mcg IVPUSH [id number] PRN PRN Reason: PAIN Stop: 12/26/16 13:46 Last Admin: 12/23/16 14:20 Dose: 50 mcg Heparin Sodium (Porcine) (Heparin -) 5,000 unit SQ TID [facility] Last Admin: 12/26/16 06:37 Dose: 5,000 unit Hydromorphone HCl (Dilaudid Injection -) 1 mg IVPUSH Q4H PRN PRN Reason: PAIN Last Admin: 12/26/16 09:03 Dose: 1 mg Pantoprazole Sodium (Protonix 40mg Ivpb (Pre-Docked)) 100 mls @ 200 mls/hr IVPB DAILY [facility] Last Admin: 12/25/16 10:02 Dose: 200 mls/hr Ceftriaxone Sodium (Rocephin 1gm Ivpb (Pre-Docked)) 50 mls @ 100 mls/hr IVPB DAILY [facility] Last Admin: 12/25/16 09:57 Dose: 100 mls/hr Metronidazole (Flagyl 500mg Premixed Ivpb -) 100 mls @ 100 mls/hr IVPB Q8H-IV [facility] Last Admin: 12/26/16 01:38 Dose: 100 mls/hr Potassium Chloride/Dextrose/Sod Cl (D5-1/2ns+20 Meq Kcl -) 1,000 mls @ 75 mls/ hr IV ASDIR [facility] Last Admin: 12/26/16 01:38 Dose: 75 mls/hr Lidocaine (Lidoderm Patch -) 2 patch TP DAILY [facility] Last Admin: 12/25/16 12:01 Dose: 2 patch Ondansetron HCl (Zofran Injection) 4 mg IVPB Q8H PRN PRN Reason: NAUSEA - Objective Vital Signs: Vital Signs Temperature 98.6 F 12/26/16 06:00 Pulse Rate 78 12/26/16 06:00 Respiratory Rate 20 12/26/16 06:00 Blood Pressure 140/80 12/26/16 06:00 O2 Sat by Pulse Oximetry (%) 96 12/25/16 09:00 Eyes: Yes: WNL, Conjunctiva Clear, EOM Intact HENT: Yes: WNL, Atraumatic, Normocephalic Neck: Yes: WNL, Supple, Trachea Midline Cardiovascular: Yes: WNL, Regular Rate and Rhythm Respiratory: Yes: WNL, Regular, CTA Bilaterally Gastrointestinal: Yes: WNL, Normal Bowel Sounds Genitourinary: Yes: WNL Musculoskeletal: Yes: WNL Extremities: Yes: WNL Edema: No Integumentary: Yes: WNL Neurological: Yes: WNL, Alert, Oriented ...Motor Strength: WNL Psychiatric: Yes: WNL Labs: CBC, BMP 12/26/16 06:10 12/26/16 06:10 INR, PTT INR 1.20 (0.82-1.09) H 12/23/16 15:45 Assessment/Plan - Problems (1) CREST (calcinosis, Raynaud's phenomenon, esophageal dysfunction, sclerodactyly, telangiectasia) Code(s): M34.1 - CR(E)ST SYNDROME (2) Abdominal pain Assessment/Plan: s/p surgery for pneumoperitoneum. Leukocytosis; on antibiotics and pain medication. As noted by Dr. Leon, pt has hx small bowel diverticulum; gastroparesis/ retention exacerbated by addiction to narcotics. Code(s): R10.9 - UNSPECIFIED ABDOMINAL PAIN (3) COPD (chronic obstructive pulmonary disease) Code(s): J44.9 - CHRONIC OBSTRUCTIVE PULMONARY DISEASE, UNSPECIFIED (4) HTN (hypertension) Assessment/Plan: elevated BP and HR exacerbated by pain, anxeity.F/u throughout hospital course. Code(s): I10 - ESSENTIAL (PRIMARY) HYPERTENSION (5) Opiate dependence Assessment/Plan: The imperative need to join a program with gradual weaning from the many medications she takes was discussed in detail. Code(s): F11.20 - OPIOID DEPENDENCE, UNCOMPLICATED
--- NOTE | 2016-12-26 12:31 | PN ---
Progress Note, Physician History of Present Illness: C/O abdominal pain NGT in place Afebrile WBC improved- WNL Tolerating antibiotics - Current Medication List Current Medications: Active Medications Aclidinium [place] (Tudorza -) 1 puff IH BID [facility] Last Admin: 12/25/16 22:25 Dose: 1 inh Albuterol Sulfate (Ventolin 0.083% Nebulizer Soln -) 1 amp NEB Q4H PRN PRN Reason: SHORT OF BREATH/WHEEZING Albuterol/Ipratropium (Duoneb -) 1 amp NEB BID [facility] Last Admin: 12/26/16 10:15 Dose: Not Given Budesonide/Formoterol Fumarate (Symbicort 80/4.5mcg -) 2 puff IH BID [facility] Last Admin: 12/25/16 22:25 Dose: 2 inh Fentanyl (Sublimaze Injection -) 50 mcg IVPUSH [id number] PRN PRN Reason: PAIN Stop: 12/26/16 13:46 Last Admin: 12/23/16 14:20 Dose: 50 mcg Heparin Sodium (Porcine) (Heparin -) 5,000 unit SQ TID [facility] Last Admin: 12/26/16 06:37 Dose: 5,000 unit Hydromorphone HCl (Dilaudid Injection -) 1 mg IVPUSH Q4H PRN PRN Reason: PAIN Last Admin: 12/26/16 09:03 Dose: 1 mg Pantoprazole Sodium (Protonix 40mg Ivpb (Pre-Docked)) 100 mls @ 200 mls/hr IVPB DAILY [facility] Last Admin: 12/25/16 10:02 Dose: 200 mls/hr Ceftriaxone Sodium (Rocephin 1gm Ivpb (Pre-Docked)) 50 mls @ 100 mls/hr IVPB DAILY [facility] Last Admin: 12/25/16 09:57 Dose: 100 mls/hr Metronidazole (Flagyl 500mg Premixed Ivpb -) 100 mls @ 100 mls/hr IVPB Q8H-IV [facility] Last Admin: 12/26/16 01:38 Dose: 100 mls/hr Potassium Chloride/Dextrose/Sod Cl (D5-1/2ns+20 Meq Kcl -) 1,000 mls @ 75 mls/ hr IV ASDIR [facility] Last Admin: 12/26/16 01:38 Dose: 75 mls/hr Lidocaine (Lidoderm Patch -) 2 patch TP DAILY [facility] Last Admin: 12/25/16 12:01 Dose: 2 patch Ondansetron HCl (Zofran Injection) 4 mg IVPB Q8H PRN PRN Reason: NAUSEA - Objective Vital Signs: Vital Signs Temperature 98.6 F 12/26/16 06:00 Pulse Rate 78 12/26/16 06:00 Respiratory Rate 20 12/26/16 06:00 Blood Pressure 140/80 12/26/16 06:00 O2 Sat by Pulse Oximetry (%) 96 12/25/16 09:00 Constitutional: Yes: No Distress, Cachectic Eyes: Yes: Conjunctiva Clear Cardiovascular: Yes: Regular Rate and Rhythm, S1, S2 Respiratory: Yes: CTA Bilaterally Gastrointestinal: Yes: Normal Bowel Sounds, Soft, Tenderness, Other (abdo less distended, tender Surgical gopi in place) Labs: CBC, BMP 12/26/16 06:10 12/26/16 06:10 INR, PTT INR 1.20 (0.82-1.09) H 12/23/16 15:45 Assessment/Plan Post op exploratory laparotomy Possible perforated viscus/ sepsis secondary to GI focus PCN allergy Continue empiric ceftriaxone/ flagyl
[2016-12-26] MEDS ORDERED: HYDROmorphone HCL CARPU-JECT 1 MG/1 ML DISP.SYRIN ONE (12:37)
[2016-12-26] MEDS: HYDROmorphone HCL CARPU-JECT 2 MG/1 ML DISP.SYRIN IVPB PRN ×3 (12:44→20:40)
[2016-12-26] MEDS ORDERED: PT OWN MED DRAWER 7, Y5N ONE (16:32)
[2016-12-26] MEDS: LIDOCAINE 5% TOPICAL PATCH TP SCH (16:40)
[2016-12-27] MEDS: HYDROmorphone HCL CARPU-JECT 2 MG/1 ML DISP.SYRIN IVPB PRN ×5 (01:23→22:01)
[2016-12-27] MEDS: METRONIDAZOLE 500 MG PREMIXED 100 ML IVPB SCH ×3 (02:29→17:04)
[2016-12-27] MEDS: HEPARIN NA (PORCINE) 5,000 UNITS/ML 1ML VIAL SQ SCH ×3 (05:58→22:02)
[2016-12-27] MEDS ORDERED: PT OWN MED DRAWER 7, Y5N ONE (08:48)
[2016-12-27] MEDS: PANTOPRAZOLE SODIUM 100 ML IVPB SCH (09:18)
[2016-12-27] MEDS: LIDOCAINE 5% TOPICAL PATCH TP SCH (09:19)
[2016-12-27] MEDS: ACLIDINIUM BROMIDE 400 MCG/INH AERO.POWD IH SCH ×2 (09:21→22:04)
[2016-12-27] MEDS: BUDESONIDE/FORMETEROL FUMARATE 80/4.5 mcg INHALER IH SCH ×2 (09:21→22:04)
[2016-12-27] MEDS: CEFTRIAXONE 50 ML IVPB SCH (09:21)
--- NOTE | 2016-12-27 09:25 | PN ---
Progress Note (short form) - Note Progress Note: Attending Surgeon POD #4 No c/o; no nausea; passed flatus VSS AF abdomen-soft; minimal tympany;minimally distended(probable baseline ); incision c/d/i NGT-was to BSB w/ minimal output labs noted IMP: resolving peritonitis/sepsis secondary to perforated viscus/ pneumoperitonem. PLAN: NGT d/c'ed; keep NPO; OOB walking; pulmonary toilet. Chris Burns MD FACS
--- NOTE | 2016-12-27 10:03 | PN ---
Progress Note, Physician Chief Complaint: NGT still in; draining less; less pain; wants to eat; passed gas d/w surgery dr Burns at bedside: remove NGT; further diet ordered per surgery - Current Medication List Current Medications: Active Medications Aclidinium [place] (Tudorza -) 1 puff IH BID [facility] Last Admin: 12/27/16 09:21 Dose: 1 inh Albuterol Sulfate (Ventolin 0.083% Nebulizer Soln -) 1 amp NEB Q4H PRN PRN Reason: SHORT OF BREATH/WHEEZING Albuterol/Ipratropium (Duoneb -) 1 amp NEB BID [facility] Last Admin: 12/26/16 22:23 Dose: Not Given Budesonide/Formoterol Fumarate (Symbicort 80/4.5mcg -) 2 puff IH BID [facility] Last Admin: 12/27/16 09:21 Dose: 2 inh Heparin Sodium (Porcine) (Heparin -) 5,000 unit SQ TID [facility] Last Admin: 12/27/16 05:58 Dose: 5,000 unit Hydromorphone HCl (Dilaudid Injection -) 2 mg IVPB Q4H PRN PRN Reason: PAIN Last Admin: 12/27/16 05:58 Dose: 2 mg Pantoprazole Sodium (Protonix 40mg Ivpb (Pre-Docked)) 100 mls @ 200 mls/hr IVPB DAILY [facility] Last Admin: 12/27/16 09:18 Dose: 200 mls/hr Ceftriaxone Sodium (Rocephin 1gm Ivpb (Pre-Docked)) 50 mls @ 100 mls/hr IVPB DAILY [facility] Last Admin: 12/27/16 09:21 Dose: 100 mls/hr Metronidazole (Flagyl 500mg Premixed Ivpb -) 100 mls @ 100 mls/hr IVPB Q8H-IV [facility] Last Admin: 12/27/16 09:20 Dose: 100 mls/hr Potassium Chloride/Dextrose/Sod Cl (D5-1/2ns+20 Meq Kcl -) 1,000 mls @ 75 mls/ hr IV ASDIR [facility] Last Admin: 12/26/16 16:43 Dose: 75 mls/hr Lidocaine (Lidoderm Patch -) 2 patch TP DAILY [facility] Last Admin: 12/27/16 09:19 Dose: 2 patch Ondansetron HCl (Zofran Injection) 4 mg IVPB Q8H PRN PRN Reason: NAUSEA - Objective Vital Signs: Vital Signs Temperature 98.8 F 12/27/16 06:00 Pulse Rate 77 12/27/16 06:00 Respiratory Rate 20 12/27/16 06:00 Blood Pressure 111/81 12/27/16 06:00 O2 Sat by Pulse Oximetry (%) 96 12/26/16 09:00 Constitutional: Yes: No Distress, Calm Eyes: Yes: Conjunctiva Clear HENT: Yes: Atraumatic Neck: Yes: Supple Cardiovascular: Yes: Regular Rate and Rhythm Respiratory: Yes: CTA Bilaterally Gastrointestinal: Yes: Soft. No: Tenderness Genitourinary: No: CVA Tenderness - Left, CVA Tenderness - Right Musculoskeletal: No: Joint Stiffness, Joint Swelling Extremities: No: Cold, Cool Edema: No Peripheral Pulses WNL: Yes Neurological: Yes: WNL, Alert, Oriented ...Motor Strength: WNL Psychiatric: Yes: WNL, Alert, Oriented. No: Agitated, Suicidal Ideation Labs: CBC, BMP 12/26/16 06:10 12/26/16 06:10 INR, PTT INR 1.20 (0.82-1.09) H 12/23/16 15:45 - ....Imaging Other: Report Reviewed Assessment/Plan The patient is a 51 year old female with past medical history of cigarette smoking, prescription narcotics abuse, hyperlipidemia, COPD, asthma, scleroderma , gastroparesis, Raynaud's, multiple upper extremity digit amputations, and CREST syndrome who presents to the ED for 3 days of nausea and vomiting and abdominal pain; CXR showed free air under diaphragm; abdomen CT confirmed bowel perforation and dilated bowels. admitted to inpt, s/p exploratory lap r/o perforated viscus NPO, IVF; NGT - d/w surgery to remove NGT IV antibiotics per ID iv PPI wound care GI and surgery f/u cardio, pulm f/u DVT, aspiration, falls and decubs pfx d/w pt and staff OOB
[2016-12-27] MEDS: ALBUTEROL SO4 2.5/IPRATROPIUM 0.5 INH SOL 3 ML VIAL.NEB. NEB SCH ×2 (10:06→22:50)
--- NOTE | 2016-12-27 10:47 | PN ---
Progress Note (short form) - Note Progress Note: PULMONARY Denies shortness of breath or chest pain. +nonproductive cough but no wheezing. +flatus but no BM yet. Last Vital Signs Temp Pulse Resp BP Pulse Ox 98.8 F 77 20 111/81 96 12/27/16 06:00 12/27/16 06:00 12/27/16 06:00 12/27/16 06:00 12/26/16 09:00 Gen: NAD in chair Heart: RRR Lung: scattered rhonchi Abd: softly distended Ext: no edema CBC, BMP 12/26/16 06:10 12/26/16 06:10 Active Medications Aclidinium [place] (Tudorza -) 1 puff IH BID [facility] Last Admin: 12/27/16 09:21 Dose: 1 inh Albuterol Sulfate (Ventolin 0.083% Nebulizer Soln -) 1 amp NEB Q4H PRN PRN Reason: SHORT OF BREATH/WHEEZING Albuterol/Ipratropium (Duoneb -) 1 amp NEB BID [facility] Last Admin: 12/27/16 10:06 Dose: Not Given Budesonide/Formoterol Fumarate (Symbicort 80/4.5mcg -) 2 puff IH BID [facility] Last Admin: 12/27/16 09:21 Dose: 2 inh Heparin Sodium (Porcine) (Heparin -) 5,000 unit SQ TID [facility] Last Admin: 12/27/16 05:58 Dose: 5,000 unit Hydromorphone HCl (Dilaudid Injection -) 2 mg IVPB Q4H PRN PRN Reason: PAIN Last Admin: 12/27/16 05:58 Dose: 2 mg Pantoprazole Sodium (Protonix 40mg Ivpb (Pre-Docked)) 100 mls @ 200 mls/hr IVPB DAILY [facility] Last Admin: 12/27/16 09:18 Dose: 200 mls/hr Ceftriaxone Sodium (Rocephin 1gm Ivpb (Pre-Docked)) 50 mls @ 100 mls/hr IVPB DAILY [facility] Last Admin: 12/27/16 09:21 Dose: 100 mls/hr Metronidazole (Flagyl 500mg Premixed Ivpb -) 100 mls @ 100 mls/hr IVPB Q8H-IV [facility] Last Admin: 12/27/16 09:20 Dose: 100 mls/hr Potassium Chloride/Dextrose/Sod Cl (D5-1/2ns+20 Meq Kcl -) 1,000 mls @ 75 mls/ hr IV ASDIR [facility] Last Admin: 12/26/16 16:43 Dose: 75 mls/hr Lidocaine (Lidoderm Patch -) 2 patch TP DAILY [facility] Last Admin: 12/27/16 09:19 Dose: 2 patch Ondansetron HCl (Zofran Injection) 4 mg IVPB Q8H PRN PRN Reason: NAUSEA A/P Pneumoperitoneum s/p ex-laparotomy COPD Atelectasis Scleroderma/CREST syndrome - pain control - incentive spirometry - inhaled bronchodilators - can defer systemic steroids at this time - antibiotics per ID - O2 as needed - PO per surgery - DVT prophylaxis Problem List - Problems (1) Pneumoperitoneum Code(s): K66.8 - OTHER SPECIFIED DISORDERS OF PERITONEUM (2) CREST syndrome Code(s): M34.1 - CR(E)ST SYNDROME (3) Scleroderma Code(s): M34.9 - SYSTEMIC SCLEROSIS, UNSPECIFIED (4) COPD (chronic obstructive pulmonary disease) Code(s): J44.9 - CHRONIC OBSTRUCTIVE PULMONARY DISEASE, UNSPECIFIED (5) Atelectasis Code(s): J98.11 - ATELECTASIS (6) Lactic acidosis Code(s): E87.2 - ACIDOSIS (7) Opioid dependence, uncomplicated Code(s): F11.20 - OPIOID DEPENDENCE, UNCOMPLICATED
--- NOTE | 2016-12-27 15:44 | PN ---
Progress Note, Physician History of Present Illness: Awake, alert Ambulatory reports less abdominal pain No fever/ chills Afebrile WBC normal - Current Medication List Current Medications: Active Medications Aclidinium [place] (Tudorza -) 1 puff IH BID [facility] Last Admin: 12/27/16 09:21 Dose: 1 inh Albuterol Sulfate (Ventolin 0.083% Nebulizer Soln -) 1 amp NEB Q4H PRN PRN Reason: SHORT OF BREATH/WHEEZING Albuterol/Ipratropium (Duoneb -) 1 amp NEB BID [facility] Last Admin: 12/27/16 10:06 Dose: Not Given Budesonide/Formoterol Fumarate (Symbicort 80/4.5mcg -) 2 puff IH BID [facility] Last Admin: 12/27/16 09:21 Dose: 2 inh Heparin Sodium (Porcine) (Heparin -) 5,000 unit SQ TID [facility] Last Admin: 12/27/16 05:58 Dose: 5,000 unit Hydromorphone HCl (Dilaudid Injection -) 2 mg IVPB Q4H PRN PRN Reason: PAIN Last Admin: 12/27/16 10:00 Dose: 2 mg Pantoprazole Sodium (Protonix 40mg Ivpb (Pre-Docked)) 100 mls @ 200 mls/hr IVPB DAILY [facility] Last Admin: 12/27/16 09:18 Dose: 200 mls/hr Ceftriaxone Sodium (Rocephin 1gm Ivpb (Pre-Docked)) 50 mls @ 100 mls/hr IVPB DAILY [facility] Last Admin: 12/27/16 09:21 Dose: 100 mls/hr Metronidazole (Flagyl 500mg Premixed Ivpb -) 100 mls @ 100 mls/hr IVPB Q8H-IV [facility] Last Admin: 12/27/16 09:20 Dose: 100 mls/hr Potassium Chloride/Dextrose/Sod Cl (D5-1/2ns+20 Meq Kcl -) 1,000 mls @ 75 mls/ hr IV ASDIR [facility] Last Admin: 12/26/16 16:43 Dose: 75 mls/hr Lidocaine (Lidoderm Patch -) 2 patch TP DAILY [facility] Last Admin: 12/27/16 09:19 Dose: 2 patch Ondansetron HCl (Zofran Injection) 4 mg IVPB Q8H PRN PRN Reason: NAUSEA - Objective Vital Signs: Vital Signs Temperature 98.5 F 12/27/16 15:32 Pulse Rate 42 L 12/27/16 15:32 Respiratory Rate 20 12/27/16 15:32 Blood Pressure 107/70 12/27/16 15:32 O2 Sat by Pulse Oximetry (%) 96 12/26/16 09:00 Constitutional: Yes: No Distress, Cachectic Eyes: Yes: Conjunctiva Clear Cardiovascular: Yes: Regular Rate and Rhythm, S1, S2 Respiratory: Yes: CTA Bilaterally Gastrointestinal: Yes: Normal Bowel Sounds, Soft, Tenderness Edema: No Labs: CBC, BMP 12/26/16 06:10 12/26/16 06:10 INR, PTT INR 1.20 (0.82-1.09) H 12/23/16 15:45 Assessment/Plan Post op exploratory laparotomy Possible perforated viscus/ sepsis secondary to GI focus PCN allergy Clinically improved Afebrile, normal WBC C/S no growth Continue empiric ceftriaxone/ flagyl
[2016-12-27] MEDS: D5-1/2NS+20 MEQ KCL - 1,000 ML IV SCH (17:10)
[2016-12-27] MEDS: ONDANSETRON 4 MG/2 ML VIAL IVPB PRN (22:38)
[2016-12-28] MEDS: METRONIDAZOLE 500 MG PREMIXED 100 ML IVPB SCH ×3 (02:09→22:18)
[2016-12-28] MEDS: HEPARIN NA (PORCINE) 5,000 UNITS/ML 1ML VIAL SQ SCH ×3 (06:11→22:18)
--- NOTE | 2016-12-28 07:26 | PN ---
Progress Note (short form) - Note Progress Note: Surgery- Dr. Burns Patient seen and examined. Patient denies pain, states she is feeling better. Had some nausea last night, but denies nausea now. Denies vomiting. Patient has Thomas in place, states she is passing some gas, denies BM. Denies fever, chills. Last Vital Signs Temp Pulse Resp BP Pulse Ox 98.6 F 77 20 108/73 95 12/28/16 06:00 12/28/16 06:00 12/28/16 06:00 12/28/16 06:00 12/27/16 21:00 CBC, BMP 12/26/16 06:10 12/26/16 06:10 Urine output: 300 ml overnight Exam: Gen: NAD Abd: soft, mildly distended, mild tenderness lower abdomen, without rebound or guarding, midline incision healing well with gopi intact, clean, dry : Thomas in place, with dark urine Problem List - Problems (1) Pneumoperitoneum Code(s): K66.8 - OTHER SPECIFIED DISORDERS OF PERITONEUM (2) Small bowel obstruction Assessment/Plan: POD#5 s/p Exploratory laparotomy Pain controlled, VSS, NGT removed yesterday Try clear liquid diet Monitor urine output OOB, Ambulate incentive spirometer Discussed with Dr. Burns Code(s): K56.69 - OTHER INTESTINAL OBSTRUCTION
[2016-12-28] MEDS: CEFTRIAXONE 50 ML IVPB SCH (09:41)
[2016-12-28] MEDS: PANTOPRAZOLE SODIUM 100 ML IVPB SCH (09:41)
[2016-12-28] MEDS: ACLIDINIUM BROMIDE 400 MCG/INH AERO.POWD IH SCH ×3 (09:42→22:21)
[2016-12-28] MEDS: LIDOCAINE 5% TOPICAL PATCH TP SCH (09:42)
[2016-12-28] MEDS: BUDESONIDE/FORMETEROL FUMARATE 80/4.5 mcg INHALER IH SCH ×2 (09:42→22:19)
[2016-12-28] MEDS: ALBUTEROL SO4 2.5/IPRATROPIUM 0.5 INH SOL 3 ML VIAL.NEB. NEB SCH ×2 (10:25→22:00)
--- NOTE | 2016-12-28 14:41 | PN ---
Progress Note, Physician History of Present Illness: The patient is a 51 year old white female with past medical history of CREST syndrome, cigarette smoking (now on "electronic cigarette"), prescription narcotics abuse, hyperlipidemia, COPD, asthma, gastroparesis, Raynaud's, multiple upper extremity digit amputations, who presents to the ED for 3 days of nausea and vomiting. She describes the vomiting as nonbloody and nonbilious and is accompanied by a loss of appetite. She states that she experiences these symptoms often and relates them to her scleroderma. She denies any diarrhea. The patient states that she was recently discharged from the hospital on 12/17. She denies any recent fever, chills, cough, shortness of breath, chest pain, or urinary symptoms. - Current Medication List Current Medications: Active Medications Aclidinium [place] (Tudorza -) 1 puff IH BID [facility] Last Admin: 12/28/16 09:42 Dose: 1 inh Albuterol Sulfate (Ventolin 0.083% Nebulizer Soln -) 1 amp NEB Q4H PRN PRN Reason: SHORT OF BREATH/WHEEZING Albuterol/Ipratropium (Duoneb -) 1 amp NEB BID [facility] Last Admin: 12/28/16 10:25 Dose: 1 amp Budesonide/Formoterol Fumarate (Symbicort 80/4.5mcg -) 2 puff IH BID [facility] Last Admin: 12/28/16 09:42 Dose: 1 inh Heparin Sodium (Porcine) (Heparin -) 5,000 unit SQ TID [facility] Last Admin: 12/28/16 13:56 Dose: 5,000 unit Pantoprazole Sodium (Protonix 40mg Ivpb (Pre-Docked)) 100 mls @ 200 mls/hr IVPB DAILY [facility] Last Admin: 12/28/16 09:41 Dose: 200 mls/hr Ceftriaxone Sodium (Rocephin 1gm Ivpb (Pre-Docked)) 50 mls @ 100 mls/hr IVPB DAILY [facility] Last Admin: 12/28/16 09:41 Dose: 100 mls/hr Metronidazole (Flagyl 500mg Premixed Ivpb -) 100 mls @ 100 mls/hr IVPB Q8H-IV [facility] Last Admin: 12/28/16 10:50 Dose: 100 mls/hr Potassium Chloride/Dextrose/Sod Cl (D5-1/2ns+20 Meq Kcl -) 1,000 mls @ 75 mls/ hr IV ASDIR [facility] Last Admin: 12/27/16 17:10 Dose: Not Given Lidocaine (Lidoderm Patch -) 2 patch TP DAILY [facility] Last Admin: 12/28/16 09:42 Dose: 2 patch Ondansetron HCl (Zofran Injection) 4 mg IVPB Q8H PRN PRN Reason: NAUSEA Last Admin: 12/27/16 22:38 Dose: 4 mg - Objective Vital Signs: Vital Signs Temperature 99.6 F 12/28/16 14:16 Pulse Rate 99 H 12/28/16 14:16 Respiratory Rate 20 12/28/16 14:16 Blood Pressure 99/70 12/28/16 14:16 O2 Sat by Pulse Oximetry (%) 92 L 12/28/16 09:00 Eyes: Yes: WNL, Conjunctiva Clear, EOM Intact HENT: Yes: WNL, Atraumatic, Normocephalic Neck: Yes: WNL, Supple, Trachea Midline Cardiovascular: Yes: WNL, Regular Rate and Rhythm Respiratory: Yes: WNL, Regular, CTA Bilaterally Gastrointestinal: Yes: WNL, Normal Bowel Sounds Genitourinary: Yes: WNL Musculoskeletal: Yes: WNL Extremities: Yes: WNL Edema: No Integumentary: Yes: WNL Neurological: Yes: WNL, Alert, Oriented ...Motor Strength: WNL Psychiatric: Yes: WNL Labs: CBC, BMP 12/26/16 06:10 12/26/16 06:10 INR, PTT INR 1.20 (0.82-1.09) H 12/23/16 15:45 Assessment/Plan - Problems (1) CREST (calcinosis, Raynaud's phenomenon, esophageal dysfunction, sclerodactyly, telangiectasia) Code(s): M34.1 - CR(E)ST SYNDROME (2) Abdominal pain Assessment/Plan: s/p surgery for pneumoperitoneum. Leukocytosis; on antibiotics and pain medication. Code(s): R10.9 - UNSPECIFIED ABDOMINAL PAIN (3) COPD (chronic obstructive pulmonary disease) Code(s): J44.9 - CHRONIC OBSTRUCTIVE PULMONARY DISEASE, UNSPECIFIED (4) HTN (hypertension) Assessment/Plan: bp stable Code(s): I10 - ESSENTIAL (PRIMARY) HYPERTENSION (5) Opiate dependence Assessment/Plan: The imperative need to join a program with gradual weaning from the many medications she takes was discussed in detail. Code(s): F11.20 - OPIOID DEPENDENCE, UNCOMPLICATED
--- NOTE | 2016-12-28 15:20 | PN ---
Progress Note, Physician History of Present Illness: Awake, alert No c/o abdominal pain + flatus No c/o fever/ chills Tolerating antibiotics - Current Medication List Current Medications: Active Medications Aclidinium [place] (Tudorza -) 1 puff IH BID [facility] Last Admin: 12/28/16 09:42 Dose: 1 inh Albuterol Sulfate (Ventolin 0.083% Nebulizer Soln -) 1 amp NEB Q4H PRN PRN Reason: SHORT OF BREATH/WHEEZING Albuterol/Ipratropium (Duoneb -) 1 amp NEB BID [facility] Last Admin: 12/28/16 10:25 Dose: 1 amp Budesonide/Formoterol Fumarate (Symbicort 80/4.5mcg -) 2 puff IH BID [facility] Last Admin: 12/28/16 09:42 Dose: 1 inh Heparin Sodium (Porcine) (Heparin -) 5,000 unit SQ TID [facility] Last Admin: 12/28/16 13:56 Dose: 5,000 unit Pantoprazole Sodium (Protonix 40mg Ivpb (Pre-Docked)) 100 mls @ 200 mls/hr IVPB DAILY [facility] Last Admin: 12/28/16 09:41 Dose: 200 mls/hr Ceftriaxone Sodium (Rocephin 1gm Ivpb (Pre-Docked)) 50 mls @ 100 mls/hr IVPB DAILY [facility] Last Admin: 12/28/16 09:41 Dose: 100 mls/hr Metronidazole (Flagyl 500mg Premixed Ivpb -) 100 mls @ 100 mls/hr IVPB Q8H-IV [facility] Last Admin: 12/28/16 10:50 Dose: 100 mls/hr Potassium Chloride/Dextrose/Sod Cl (D5-1/2ns+20 Meq Kcl -) 1,000 mls @ 75 mls/ hr IV ASDIR [facility] Last Admin: 12/27/16 17:10 Dose: Not Given Lidocaine (Lidoderm Patch -) 2 patch TP DAILY [facility] Last Admin: 12/28/16 09:42 Dose: 2 patch Ondansetron HCl (Zofran Injection) 4 mg IVPB Q8H PRN PRN Reason: NAUSEA Last Admin: 12/27/16 22:38 Dose: 4 mg - Objective Vital Signs: Vital Signs Temperature 99.6 F 12/28/16 14:16 Pulse Rate 99 H 12/28/16 14:16 Respiratory Rate 20 12/28/16 14:16 Blood Pressure 99/70 12/28/16 14:16 O2 Sat by Pulse Oximetry (%) 92 L 12/28/16 09:00 Constitutional: Yes: No Distress, Cachectic Eyes: Yes: Conjunctiva Clear Cardiovascular: Yes: Regular Rate and Rhythm, S1, S2 Respiratory: Yes: CTA Bilaterally Gastrointestinal: Yes: Normal Bowel Sounds, Soft, Other (surgical wound intact) . No: Tenderness Edema: No Labs: CBC, BMP 12/26/16 06:10 12/26/16 06:10 INR, PTT INR 1.20 (0.82-1.09) H 12/23/16 15:45 Assessment/Plan Post op exploratory laparotomy Possible perforated viscus/ sepsis secondary to GI focus PCN allergy Clinically improved Afebrile, normal WBC C/S no growth Continue empiric ceftriaxone/ flagyl
--- NOTE | 2016-12-28 16:43 | PN ---
Progress Note, Physician Chief Complaint: in bed less pain, hungry wants to eat; passed gas no stools yet; vomited once in am NGT removed; will check KUB - Current Medication List Current Medications: Active Medications Aclidinium [place] (Tudorza -) 1 puff IH BID [facility] Last Admin: 12/28/16 09:42 Dose: 1 inh Albuterol Sulfate (Ventolin 0.083% Nebulizer Soln -) 1 amp NEB Q4H PRN PRN Reason: SHORT OF BREATH/WHEEZING Albuterol/Ipratropium (Duoneb -) 1 amp NEB BID [facility] Last Admin: 12/28/16 10:25 Dose: 1 amp Budesonide/Formoterol Fumarate (Symbicort 80/4.5mcg -) 2 puff IH BID [facility] Last Admin: 12/28/16 09:42 Dose: 1 inh Heparin Sodium (Porcine) (Heparin -) 5,000 unit SQ TID [facility] Last Admin: 12/28/16 13:56 Dose: 5,000 unit Pantoprazole Sodium (Protonix 40mg Ivpb (Pre-Docked)) 100 mls @ 200 mls/hr IVPB DAILY [facility] Last Admin: 12/28/16 09:41 Dose: 200 mls/hr Ceftriaxone Sodium (Rocephin 1gm Ivpb (Pre-Docked)) 50 mls @ 100 mls/hr IVPB DAILY [facility] Last Admin: 12/28/16 09:41 Dose: 100 mls/hr Metronidazole (Flagyl 500mg Premixed Ivpb -) 100 mls @ 100 mls/hr IVPB Q8H-IV [facility] Last Admin: 12/28/16 10:50 Dose: 100 mls/hr Potassium Chloride/Dextrose/Sod Cl (D5-1/2ns+20 Meq Kcl -) 1,000 mls @ 75 mls/ hr IV ASDIR [facility] Last Admin: 12/27/16 17:10 Dose: Not Given Lidocaine (Lidoderm Patch -) 2 patch TP DAILY [facility] Last Admin: 12/28/16 09:42 Dose: 2 patch Ondansetron HCl (Zofran Injection) 4 mg IVPB Q8H PRN PRN Reason: NAUSEA Last Admin: 12/27/16 22:38 Dose: 4 mg - Objective Vital Signs: Vital Signs Temperature 99.6 F 04/14/17 14:16 Pulse Rate 99 H 12/28/16 14:16 Respiratory Rate 20 12/28/16 14:16 Blood Pressure 99/70 12/28/16 14:16 O2 Sat by Pulse Oximetry (%) 92 L 12/28/16 09:00 Constitutional: Yes: No Distress, Calm Eyes: Yes: Conjunctiva Clear HENT: Yes: Atraumatic Neck: Yes: Supple Cardiovascular: Yes: Regular Rate and Rhythm Respiratory: Yes: CTA Bilaterally Gastrointestinal: Yes: Soft, Tenderness (gene mild) Genitourinary: No: CVA Tenderness - Left, CVA Tenderness - Right Musculoskeletal: No: Joint Stiffness, Joint Swelling Extremities: No: Cold, Cool Edema: No Integumentary: No: Pressure Ulcer, Venous Stasis Changes Neurological: Yes: WNL, Alert, Oriented ...Motor Strength: WNL Psychiatric: Yes: WNL, Alert, Oriented. No: Agitated Labs: CBC, BMP 12/26/16 06:10 12/26/16 06:10 INR, PTT INR 1.20 (0.82-1.09) H 12/23/16 15:45 - ....Imaging Other: Report Reviewed Assessment/Plan The patient is a 51 year old female with past medical history of cigarette smoking, prescription narcotics abuse, hyperlipidemia, COPD, asthma, scleroderma , gastroparesis, Raynaud's, multiple upper extremity digit amputations, and CREST syndrome who presents to the ED for 3 days of nausea and vomiting and abdominal pain; CXR showed free air under diaphragm; abdomen CT confirmed bowel perforation and dilated bowels. admitted to inpt, s/p exploratory lap r/o perforated viscus clear fluids diet; IVF; NGT removed IV antibiotics per ID iv PPI wound care GI and surgery f/u cardio, pulm f/u DVT, aspiration, falls and decubs pfx d/w pt and staff OOB
[2016-12-28] MEDS: ONDANSETRON 4 MG/2 ML VIAL IVPB PRN (19:58)
[2016-12-29] MEDS: METRONIDAZOLE 500 MG PREMIXED 100 ML IVPB SCH ×3 (05:03→18:00)
[2016-12-29] MEDS: D5-1/2NS+20 MEQ KCL - 1,000 ML IV SCH ×3 (05:08→18:01)
[2016-12-29] MEDS: HEPARIN NA (PORCINE) 5,000 UNITS/ML 1ML VIAL SQ SCH ×3 (05:52→21:19)
--- NOTE | 2016-12-29 07:35 | PN ---
Progress Note, Physician Chief Complaint: Pt now able to ambulate slowly; occasional pain at site of abdominal surgery. History of Present Illness: The patient is a 51 year old white female with past medical history of CREST syndrome, cigarette smoking (now on "electronic cigarette"), prescription narcotics abuse, hyperlipidemia, COPD, asthma, gastroparesis, Raynaud's, multiple upper extremity digit amputations, who presents to the ED for 3 days of nausea and vomiting. She describes the vomiting as nonbloody and nonbilious and is accompanied by a loss of appetite. She states that she experiences these symptoms often and relates them to her scleroderma. She denies any diarrhea. The patient states that she was recently discharged from the hospital on 12/17. She denies any recent fever, chills, cough, shortness of breath, chest pain, or urinary symptoms. PCP: Dr. Eva Gonzalez Circuit Breaker Supervisor: Dr. Garcia - Current Medication List Current Medications: Active Medications Aclidinium [place] (Tudorza -) 1 puff IH BID [facility] Last Admin: 12/28/16 22:21 Dose: Not Given Albuterol Sulfate (Ventolin 0.083% Nebulizer Soln -) 1 amp NEB Q4H PRN PRN Reason: SHORT OF BREATH/WHEEZING Albuterol/Ipratropium (Duoneb -) 1 amp NEB BID [facility] Last Admin: 12/28/16 22:00 Dose: Not Given Budesonide/Formoterol Fumarate (Symbicort 80/4.5mcg -) 2 puff IH BID [facility] Last Admin: 12/28/16 22:19 Dose: 2 puff Heparin Sodium (Porcine) (Heparin -) 5,000 unit SQ TID [facility] Last Admin: 12/29/16 05:52 Dose: Not Given Pantoprazole [place] (Protonix 40mg Ivpb (Pre-Docked)) 100 mls @ 200 mls/hr IVPB DAILY [facility] Last Admin: 12/28/16 09:41 Dose: 200 mls/hr Ceftriaxone Sodium (Rocephin 1gm Ivpb (Pre-Docked)) 50 mls @ 100 mls/hr IVPB DAILY [facility] Last Admin: 12/28/16 09:41 Dose: 100 mls/hr Metronidazole (Flagyl 500mg Premixed Ivpb -) 100 mls @ 100 mls/hr IVPB Q8H-IV [facility] Last Admin: 12/29/16 05:03 Dose: 100 mls/hr Potassium Chloride/Dextrose/Sod Cl (D5-1/2ns+20 Meq Kcl -) 1,000 mls @ 75 mls/ hr IV ASDIR [facility] Last Admin: 12/29/16 05:08 Dose: 75 mls/hr Lidocaine (Lidoderm Patch -) 2 patch TP DAILY [facility] Last Admin: 12/28/16 09:42 Dose: 2 patch Ondansetron HCl (Zofran Injection) 4 mg IVPB Q8H PRN PRN Reason: NAUSEA Last Admin: 12/28/16 19:58 Dose: 4 mg - Objective Vital Signs: Vital Signs Temperature 99.6 F 12/28/16 22:00 Pulse Rate 90 12/28/16 22:00 Respiratory Rate 18 12/28/16 22:00 Blood Pressure 120/80 12/28/16 22:00 O2 Sat by Pulse Oximetry (%) 95 12/28/16 21:00 Constitutional: Yes: Calm Eyes: Yes: WNL HENT: Yes: WNL Neck: Yes: WNL Cardiovascular: Yes: Regular Rate and Rhythm Respiratory: Yes: WNL Gastrointestinal: Yes: Soft. No: Tenderness, Rebound ...Rectal Exam: Yes: Deferred Genitourinary: No: Anuria Breast(s): Yes: WNL Musculoskeletal: Yes: Muscle Pain Extremities: Yes: Amputation (partial of several fingers), Cool Edema: No Peripheral Pulses WNL: No Peripheral Pulses: Left Doralis Pedis: 1+, Right Dorsalis Pedis: 1+ Integumentary: Yes: Incision Wound/Incision: Yes: Well Approximated Neurological: Yes: Alert, Oriented Psychiatric: Yes: Other (addictive personality) Labs: CBC, BMP 12/26/16 06:10 12/26/16 06:10 INR, PTT INR 1.20 (0.82-1.09) H 12/23/16 15:45 Problem List - Problems (1) CREST (calcinosis, Raynaud's phenomenon, esophageal dysfunction, sclerodactyly, telangiectasia) Assessment/Plan: ECHO: normal LVEF; normal chambers sizes; no valvular structural abnormalities noted; trace MR and TR. F/u with electric well logging operator. Code(s): M34.1 - CR(E)ST SYNDROME (2) Abdominal pain Assessment/Plan: s/p surgery for pneumoperitoneum; WBC now WNL; ; on antibiotics and pain medication. Pt has hx small bowel diverticulum; gastroparesis/retention exacerbated by addiction to narcotics. Code(s): R10.9 - UNSPECIFIED ABDOMINAL PAIN (3) COPD (chronic obstructive pulmonary disease) Code(s): J44.9 - CHRONIC OBSTRUCTIVE PULMONARY DISEASE, UNSPECIFIED (4) Opiate dependence Assessment/Plan: The imperative need to join a program with gradual weaning from the many medications she takes was discussed in detail. However, pt has been struggling with this problem for years. Code(s): F11.20 - OPIOID DEPENDENCE, UNCOMPLICATED (5) Cigarette nicotine dependence Code(s): F17.210 - NICOTINE DEPENDENCE, CIGARETTES, UNCOMPLICATED
--- NOTE | 2016-12-29 09:46 | PN ---
Progress Note (short form) - Note Progress Note: Attending Surgeon POD # No c/o; passing flatus ; toleratimg liquids; wants to eat more. VSS AF Abdomen-soft; tympanitic; incision c/d/i AXR-looks like her baseline; there is air in the rectum IMP: stable. PLAN: Advance diet; OOB; consider stopping antibiotics given no gross evidence of perforation; -C/S from peritoneal fluis; AF and nl WBC Chris Burns MD FACS
[2016-12-29] MEDS ORDERED: PT OWN MED DRAWER 7, Y5N ONE (09:51)
[2016-12-29] MEDS: ALBUTEROL SO4 2.5/IPRATROPIUM 0.5 INH SOL 3 ML VIAL.NEB. NEB SCH ×2 (10:04→22:51)
[2016-12-29] MEDS: PANTOPRAZOLE SODIUM 100 ML IVPB SCH (10:06)
[2016-12-29] MEDS: CEFTRIAXONE 50 ML IVPB SCH (10:06)
[2016-12-29] MEDS: LIDOCAINE 5% TOPICAL PATCH TP SCH (10:07)
[2016-12-29] MEDS: BUDESONIDE/FORMETEROL FUMARATE 80/4.5 mcg INHALER IH SCH ×2 (10:07→21:20)
[2016-12-29] MEDS: ACLIDINIUM BROMIDE 400 MCG/INH AERO.POWD IH SCH ×2 (10:08→22:00)
--- NOTE | 2016-12-29 10:19 | PN ---
Progress Note, Physician History of Present Illness: Tolerating clear liquids No c/o abdominal pain No N/V No c/o fever/ chills Afebrile WBC WNL - Current Medication List Current Medications: Active Medications Aclidinium [place] (Tudorza -) 1 puff IH BID COUNTS [facility]CLUDE 234 BEDS AT THE [facility] Last Admin: 12/29/16 10:08 Dose: 1 inh Albuterol Sulfate (Ventolin 0.083% Nebulizer Soln -) 1 amp NEB Q4H PRN PRN Reason: SHORT OF BREATH/WHEEZING Albuterol/Ipratropium (Duoneb -) 1 amp NEB BID COUNTS INCLUDE 234 BEDS AT THE [facility] Last Admin: 12/29/16 10:04 Dose: Not Given Budesonide/Formoterol Fumarate (Symbicort 80/4.5mcg -) 2 puff IH BID COUNTS INCLUDE 234 BEDS AT THE [facility] Last Admin: 12/29/16 10:07 Dose: 2 puff Heparin Sodium (Porcine) (Heparin -) 5,000 unit SQ TID COUNTS INCLUDE 234 BEDS AT THE [facility] Last Admin: 12/29/16 05:52 Dose: Not Given Pantoprazole Sodium (Protonix 40mg Ivpb (Pre-Docked)) 100 mls @ 200 mls/hr IVPB DAILY COUNTS INCLUDE 234 BEDS AT THE [facility] Last Admin: 12/29/16 10:06 Dose: 200 mls/hr Ceftriaxone Sodium (Rocephin 1gm Ivpb (Pre-Docked)) 50 mls @ 100 mls/hr IVPB DAILY COUNTS INCLUDE 234 BEDS AT THE [facility] Last Admin: 12/29/16 10:06 Dose: 100 mls/hr Metronidazole (Flagyl 500mg Premixed Ivpb -) 100 mls @ 100 mls/hr IVPB Q8H-IV COUNTS INCLUDE 234 BEDS AT THE [facility] Last Admin: 12/29/16 10:06 Dose: 100 mls/hr Potassium Chloride/Dextrose/Sod Cl (D5-1/2ns+20 Meq Kcl -) 1,000 mls @ 75 mls/ hr IV ASDIR COUNTS INCLUDE 234 BEDS AT THE [facility] Last Admin: 12/29/16 10:06 Dose: 75 mls/hr Lidocaine (Lidoderm Patch -) 2 patch TP DAILY COUNTS INCLUDE 234 BEDS AT THE [facility] Last Admin: 12/29/16 10:07 Dose: 2 patch Ondansetron HCl (Zofran Injection) 4 mg IVPB Q8H PRN PRN Reason: NAUSEA Last Admin: 12/28/16 19:58 Dose: 4 mg - Objective Vital Signs: Vital Signs Temperature 99.6 F 12/28/16 22:00 Pulse Rate 82 04/15/17 10:04 Respiratory Rate 18 12/28/16 22:00 Blood Pressure 120/80 12/28/16 22:00 O2 Sat by Pulse Oximetry (%) 92 L 12/29/16 10:04 Constitutional: Yes: No Distress, Cachectic Eyes: Yes: Conjunctiva Clear Cardiovascular: Yes: Regular Rate and Rhythm, S1, S2 Respiratory: Yes: CTA Bilaterally Gastrointestinal: Yes: Normal Bowel Sounds, Soft, Other (slight lower abdominal distention Surgical gopi in place). No: Tenderness Labs: CBC, BMP 12/26/16 06:10 12/26/16 06:10 INR, PTT INR 1.20 (0.82-1.09) H 12/23/16 15:45 Assessment/Plan Post op exploratory laparotomy Possible perforated viscus/ sepsis secondary to GI focus PCN allergy Clinically improved Afebrile, normal WBC C/S no growth Continue empiric ceftriaxone/ flagyl Switch to po antibiotics when diet advanced
--- NOTE | 2016-12-29 10:20 | PN ---
Progress Note, Physician Chief Complaint: in bed no pain afebrile; passed gas; no N.V wants to eat regular food; to d.w surgery - Current Medication List Current Medications: Active Medications Aclidinium [place] (Tudorza -) 1 puff IH BID [facility] Last Admin: 12/29/16 10:08 Dose: 1 inh Albuterol Sulfate (Ventolin 0.083% Nebulizer Soln -) 1 amp NEB Q4H PRN PRN Reason: SHORT OF BREATH/WHEEZING Albuterol/Ipratropium (Duoneb -) 1 amp NEB BID [facility] Last Admin: 12/29/16 10:04 Dose: Not Given Budesonide/Formoterol Fumarate (Symbicort 80/4.5mcg -) 2 puff IH BID [facility] Last Admin: 12/29/16 10:07 Dose: 2 puff Heparin Sodium (Porcine) (Heparin -) 5,000 unit SQ TID [facility] Last Admin: 12/29/16 05:52 Dose: Not Given Pantoprazole Sodium (Protonix 40mg Ivpb (Pre-Docked)) 100 mls @ 200 mls/hr IVPB DAILY [facility] Last Admin: 12/29/16 10:06 Dose: 200 mls/hr Ceftriaxone Sodium (Rocephin 1gm Ivpb (Pre-Docked)) 50 mls @ 100 mls/hr IVPB DAILY [facility] Last Admin: 12/29/16 10:06 Dose: 100 mls/hr Metronidazole (Flagyl 500mg Premixed Ivpb -) 100 mls @ 100 mls/hr IVPB Q8H-IV [facility] Last Admin: 12/29/16 10:06 Dose: 100 mls/hr Potassium Chloride/Dextrose/Sod Cl (D5-1/2ns+20 Meq Kcl -) 1,000 mls @ 75 mls/ hr IV ASDIR [facility] Last Admin: 12/29/16 10:06 Dose: 75 mls/hr Lidocaine (Lidoderm Patch -) 2 patch TP DAILY [facility] Last Admin: 12/29/16 10:07 Dose: 2 patch Ondansetron HCl (Zofran Injection) 4 mg IVPB Q8H PRN PRN Reason: NAUSEA Last Admin: 12/28/16 19:58 Dose: 4 mg - Objective Vital Signs: Vital Signs Temperature 99.6 F 12/28/16 22:00 Pulse Rate 82 12/29/16 10:04 Respiratory Rate 18 12/28/16 22:00 Blood Pressure 120/80 12/28/16 22:00 O2 Sat by Pulse Oximetry (%) 92 L 12/29/16 10:04 Constitutional: Yes: No Distress, Calm Eyes: Yes: Conjunctiva Clear HENT: Yes: Atraumatic Neck: Yes: Supple Cardiovascular: Yes: Regular Rate and Rhythm Respiratory: Yes: CTA Bilaterally Gastrointestinal: Yes: Soft. No: Tenderness Genitourinary: No: CVA Tenderness - Left, CVA Tenderness - Right Musculoskeletal: No: Joint Stiffness, Joint Swelling Extremities: No: Cold, Cool Edema: No Integumentary: No: Rash, Venous Stasis Changes Neurological: Yes: WNL, Alert, Oriented ...Motor Strength: WNL Psychiatric: Yes: WNL, Alert, Oriented. No: Agitated, Suicidal Ideation Labs: CBC, BMP 12/26/16 06:10 12/26/16 06:10 INR, PTT INR 1.20 (0.82-1.09) H 12/23/16 15:45 - ....Imaging Other: Report Reviewed Assessment/Plan The patient is a 51 year old female with past medical history of cigarette smoking, prescription narcotics abuse, hyperlipidemia, COPD, asthma, scleroderma , gastroparesis, Raynaud's, multiple upper extremity digit amputations, and CREST syndrome who presents to the ED for 3 days of nausea and vomiting and abdominal pain; CXR showed free air under diaphragm; abdomen CT confirmed bowel perforation and dilated bowels. admitted to inpt, s/p exploratory lap r/o perforated viscus to advance diet per surgery; IVF; NGT removed; KUB improved IV antibiotics per ID iv PPI wound care GI and surgery f/u cardio, pulm f/u DVT, aspiration, falls and decubs pfx d/w pt and staff OOB
--- NOTE | 2016-12-29 11:56 | PN ---
Progress Note (short form) - Note Progress Note: PULMONARY Denies shortness of breath or chest pain. +flatus but no BM yet. Last Vital Signs Temp Pulse Resp BP Pulse Ox 99.6 F 82 18 120/80 92 L 12/28/16 22:00 12/29/16 10:04 12/28/16 22:00 12/28/16 22:00 12/29/16 10:04 Gen: NAD in chair Heart: RRR Lung: scattered rhonchi Abd: softly distended Ext: no edema CBC, BMP 12/26/16 06:10 12/26/16 06:10 Active Medications Aclidinium [place] (Tudorza -) 1 puff IH BID [facility] Last Admin: 12/29/16 10:08 Dose: 1 inh Albuterol Sulfate (Ventolin 0.083% Nebulizer Soln -) 1 amp NEB Q4H PRN PRN Reason: SHORT OF BREATH/WHEEZING Albuterol/Ipratropium (Duoneb -) 1 amp NEB BID [facility] Last Admin: 12/29/16 10:04 Dose: Not Given Budesonide/Formoterol Fumarate (Symbicort 80/4.5mcg -) 2 puff IH BID [facility] Last Admin: 12/29/16 10:07 Dose: 2 puff Heparin Sodium (Porcine) (Heparin -) 5,000 unit SQ TID [facility] Last Admin: 12/29/16 05:52 Dose: Not Given Pantoprazole Sodium (Protonix 40mg Ivpb (Pre-Docked)) 100 mls @ 200 mls/hr IVPB DAILY [facility] Last Admin: 12/29/16 10:06 Dose: 200 mls/hr Ceftriaxone Sodium (Rocephin 1gm Ivpb (Pre-Docked)) 50 mls @ 100 mls/hr IVPB DAILY [facility] Last Admin: 12/29/16 10:06 Dose: 100 mls/hr Metronidazole (Flagyl 500mg Premixed Ivpb -) 100 mls @ 100 mls/hr IVPB Q8H-IV [facility] Last Admin: 12/29/16 10:06 Dose: 100 mls/hr Potassium Chloride/Dextrose/Sod Cl (D5-1/2ns+20 Meq Kcl -) 1,000 mls @ 75 mls/ hr IV ASDIR [facility] Last Admin: 12/29/16 10:06 Dose: 75 mls/hr Lidocaine (Lidoderm Patch -) 2 patch TP DAILY [facility] Last Admin: 12/29/16 10:07 Dose: 2 patch Ondansetron HCl (Zofran Injection) 4 mg IVPB Q8H PRN PRN Reason: NAUSEA Last Admin: 12/28/16 19:58 Dose: 4 mg A/P Pneumoperitoneum s/p ex-laparotomy COPD Atelectasis Scleroderma/CREST syndrome - pain control - incentive spirometry - inhaled bronchodilators - can defer systemic steroids at this time - antibiotics per ID - O2 as needed - PO per surgery - DVT prophylaxis Problem List - Problems (1) Pneumoperitoneum Code(s): K66.8 - OTHER SPECIFIED DISORDERS OF PERITONEUM (2) CREST syndrome Code(s): M34.1 - CR(E)ST SYNDROME (3) Scleroderma Code(s): M34.9 - SYSTEMIC SCLEROSIS, UNSPECIFIED (4) COPD (chronic obstructive pulmonary disease) Code(s): J44.9 - CHRONIC OBSTRUCTIVE PULMONARY DISEASE, UNSPECIFIED (5) Atelectasis Code(s): J98.11 - ATELECTASIS (6) Lactic acidosis Code(s): E87.2 - ACIDOSIS (7) Opioid dependence, uncomplicated Code(s): F11.20 - OPIOID DEPENDENCE, UNCOMPLICATED
[2016-12-30] MEDS: D5-1/2NS+20 MEQ KCL - 1,000 ML IV SCH (02:33)
[2016-12-30] MEDS: METRONIDAZOLE 500 MG PREMIXED 100 ML IVPB SCH ×3 (02:33→18:19)
[2016-12-30] MEDS: HEPARIN NA (PORCINE) 5,000 UNITS/ML 1ML VIAL SQ SCH ×3 (06:30→22:51)
[2016-12-30] MEDS: CEFTRIAXONE 50 ML IVPB SCH (09:44)
[2016-12-30] MEDS: PANTOPRAZOLE SODIUM 100 ML IVPB SCH (09:44)
[2016-12-30] MEDS: BUDESONIDE/FORMETEROL FUMARATE 80/4.5 mcg INHALER IH SCH ×2 (09:45→22:52)
[2016-12-30] MEDS: ACLIDINIUM BROMIDE 400 MCG/INH AERO.POWD IH SCH ×2 (09:45→22:53)
[2016-12-30] MEDS: LIDOCAINE 5% TOPICAL PATCH TP SCH (09:45)
--- NOTE | 2016-12-30 09:45 | PN ---
Progress Note, Physician Chief Complaint: in bed less pain, no BM yet, advianced diet as tolerated, no N/V - Current Medication List Current Medications: Active Medications Aclidinium [place] (Tudorza -) 1 puff IH BID [facility] Last Admin: 12/29/16 22:00 Dose: Not Given Albuterol Sulfate (Ventolin 0.083% Nebulizer Soln -) 1 amp NEB Q4H PRN PRN Reason: SHORT OF BREATH/WHEEZING Albuterol/Ipratropium (Duoneb -) 1 amp NEB BID [facility] Last Admin: 12/29/16 22:51 Dose: Not Given Budesonide/Formoterol Fumarate (Symbicort 80/4.5mcg -) 2 puff IH BID [facility] Last Admin: 12/29/16 21:20 Dose: 2 puff Heparin Sodium (Porcine) (Heparin -) 5,000 unit SQ TID [facility] Last Admin: 12/30/16 06:30 Dose: Not Given Pantoprazole Sodium (Protonix 40mg Ivpb (Pre-Docked)) 100 mls @ 200 mls/hr IVPB DAILY [facility] Last Admin: 12/29/16 10:06 Dose: 200 mls/hr Ceftriaxone Sodium (Rocephin 1gm Ivpb (Pre-Docked)) 50 mls @ 100 mls/hr IVPB DAILY [facility] Last Admin: 12/29/16 10:06 Dose: 100 mls/hr Metronidazole (Flagyl 500mg Premixed Ivpb -) 100 mls @ 100 mls/hr IVPB Q8H-IV [facility] Last Admin: 12/30/16 02:33 Dose: 100 mls/hr Potassium Chloride/Dextrose/Sod Cl (D5-1/2ns+20 Meq Kcl -) 1,000 mls @ 75 mls/ hr IV ASDIR [facility] Last Admin: 12/30/16 02:33 Dose: 75 mls/hr Lidocaine (Lidoderm Patch -) 2 patch TP DAILY [facility] Last Admin: 12/29/16 10:07 Dose: 2 patch Ondansetron HCl (Zofran Injection) 4 mg IVPB Q8H PRN PRN Reason: NAUSEA Last Admin: 12/28/16 19:58 Dose: 4 mg - Objective Vital Signs: Vital Signs Temperature 98.7 F 12/30/16 08:50 Pulse Rate 80 12/30/16 08:50 Respiratory Rate 18 12/30/16 08:52 Blood Pressure 89/61 12/30/16 08:50 O2 Sat by Pulse Oximetry (%) 96 12/30/16 08:52 Constitutional: Yes: No Distress, Calm Eyes: Yes: Conjunctiva Clear HENT: Yes: Atraumatic Neck: Yes: Supple Cardiovascular: Yes: Regular Rate and Rhythm Respiratory: Yes: CTA Bilaterally Gastrointestinal: Yes: Soft, Tenderness (mild generalized with palpation) Genitourinary: No: CVA Tenderness - Left, CVA Tenderness - Right Musculoskeletal: No: Joint Stiffness, Joint Swelling Extremities: No: Cold, Cool Edema: No Integumentary: No: Rash, Venous Stasis Changes Wound/Incision: Yes: Dressing Dry and Intact Neurological: Yes: WNL, Alert, Oriented ...Motor Strength: WNL Psychiatric: Yes: WNL, Alert, Oriented. No: Agitated, Suicidal Ideation Labs: CBC, BMP 12/26/16 06:10 12/26/16 06:10 INR, PTT INR 1.20 (0.82-1.09) H 12/23/16 15:45 - ....Imaging Other: Report Reviewed Assessment/Plan The patient is a 51 year old female with past medical history of cigarette smoking, prescription narcotics abuse, hyperlipidemia, COPD, asthma, scleroderma , gastroparesis, Raynaud's, multiple upper extremity digit amputations, and CREST syndrome who presents to the ED for 3 days of nausea and vomiting and abdominal pain; CXR showed free air under diaphragm; abdomen CT confirmed bowel perforation and dilated bowels. admitted to inpt, s/p exploratory lap r/o perforated viscus to advance diet per surgery; stop IVF; NGT removed; KUB improved IV antibiotics per ID po miralax prn wound care GI and surgery f/u cardio, pulm f/u DVT, aspiration, falls and decubs pfx d/w pt and staff OOB
[2016-12-30] MEDS: ALBUTEROL SO4 2.5/IPRATROPIUM 0.5 INH SOL 3 ML VIAL.NEB. NEB SCH ×2 (10:10→22:52)
--- NOTE | 2016-12-30 11:30 | PN ---
Progress Note (short form) - Note Progress Note: PULMONARY +flatus but no BM yet. Denies shortness of breath or chest pain. Last Vital Signs Temp Pulse Resp BP Pulse Ox 98.7 F 88 18 89/61 95 12/30/16 08:50 12/30/16 10:10 12/30/16 08:52 12/30/16 08:50 12/30/16 10:10 Gen: NAD in chair Heart: RRR Lung: scattered rhonchi Abd: softly distended Ext: no edema CBC, BMP 12/26/16 06:10 12/26/16 06:10 Active Medications Aclidinium [place] (Tudorza -) 1 puff IH BID [facility] Last Admin: 12/30/16 09:45 Dose: 1 inh Albuterol Sulfate (Ventolin 0.083% Nebulizer Soln -) 1 amp NEB Q4H PRN PRN Reason: SHORT OF BREATH/WHEEZING Albuterol/Ipratropium (Duoneb -) 1 amp NEB BID [facility] Last Admin: 12/30/16 10:10 Dose: 1 amp Budesonide/Formoterol Fumarate (Symbicort 80/4.5mcg -) 2 puff IH BID [facility] Last Admin: 12/30/16 09:45 Dose: 2 puff Heparin Sodium (Porcine) (Heparin -) 5,000 unit SQ TID [facility] Last Admin: 12/30/16 06:30 Dose: Not Given Pantoprazole Sodium (Protonix 40mg Ivpb (Pre-Docked)) 100 mls @ 200 mls/hr IVPB DAILY [facility] Last Admin: 12/30/16 09:44 Dose: 200 mls/hr Ceftriaxone Sodium (Rocephin 1gm Ivpb (Pre-Docked)) 50 mls @ 100 mls/hr IVPB DAILY [facility] Last Admin: 12/30/16 09:44 Dose: 100 mls/hr Metronidazole (Flagyl 500mg Premixed Ivpb -) 100 mls @ 100 mls/hr IVPB Q8H-IV [facility] Last Admin: 12/30/16 09:44 Dose: 100 mls/hr Lidocaine (Lidoderm Patch -) 2 patch TP DAILY [facility] Last Admin: 12/30/16 09:45 Dose: 2 patch Ondansetron HCl (Zofran Injection) 4 mg IVPB Q8H PRN PRN Reason: NAUSEA Last Admin: 04/14/17 19:58 Dose: 4 mg A/P Pneumoperitoneum s/p ex-laparotomy COPD Atelectasis Scleroderma/CREST syndrome - pain control - incentive spirometry - inhaled bronchodilators - can defer systemic steroids at this time - antibiotics per ID - O2 as needed - PO per surgery - DVT prophylaxis Problem List - Problems (1) Pneumoperitoneum Code(s): K66.8 - OTHER SPECIFIED DISORDERS OF PERITONEUM (2) CREST syndrome Code(s): M34.1 - CR(E)ST SYNDROME (3) Scleroderma Code(s): M34.9 - SYSTEMIC SCLEROSIS, UNSPECIFIED (4) COPD (chronic obstructive pulmonary disease) Code(s): J44.9 - CHRONIC OBSTRUCTIVE PULMONARY DISEASE, UNSPECIFIED (5) Atelectasis Code(s): J98.11 - ATELECTASIS (6) Lactic acidosis Code(s): E87.2 - ACIDOSIS (7) Opioid dependence, uncomplicated Code(s): F11.20 - OPIOID DEPENDENCE, UNCOMPLICATED
--- NOTE | 2016-12-30 17:07 | PN ---
Progress Note (short form) - Note Progress Note: Attending Surgeon POD #7 Tolerating regular diet; no nausea/vomiting; passing flatus; no BM(she had this on a chronic basis pre-op) VSS AF abdomen-soft;slightly typanitic; incision c/d/i; o/w negative. IMP:improving PLAN: continue present tx. Chris Burns MD FACS
[2016-12-30] MEDS ORDERED: PT OWN MED DRAWER 7, Y5N ONE (22:45)
[2016-12-31] MEDS: METRONIDAZOLE 500 MG PREMIXED 100 ML IVPB SCH ×3 (01:31→18:34)
[2016-12-31] MEDS: HEPARIN NA (PORCINE) 5,000 UNITS/ML 1ML VIAL SQ SCH ×3 (06:54→23:19)
[2016-12-31] MEDS ORDERED: BISACODYL 10 MG SUPP.RECT RC PRN (07:35)
--- NOTE | 2016-12-31 07:35 | PN ---
Progress Note (short form) - Note Progress Note: POD #8 Alert. Sitting on edge of bed. Resting comfortably without complaint. Doing well. Pain managed well. She is tolerating her regular diet. Voiding spontaneously. Passing flatus. Ambulating the hallways unassisted. Still no bowel movement. Afebrile. AVSS. Gen: alert. nad. ABD: midline incision intact with gopi. Note a little erythema developing just to right of umbilicus and inferior pole of wound. Not tender to palpation. Nothing expressed from wound. Problem List - Problems (1) Pneumoperitoneum Assessment/Plan: POD #8 s/p Ex-lap secondary to pneumperitoneum, abdominal pain Cont regular diet Out of bed and ambulate Dulcolax ordered Once she has bowel movement, she can be discharged home today Cont medical management Code(s): K66.8 - OTHER SPECIFIED DISORDERS OF PERITONEUM (2) Opiate dependence Code(s): F11.20 - OPIOID DEPENDENCE, UNCOMPLICATED
[2016-12-31] MEDS: PANTOPRAZOLE SODIUM 100 ML IVPB SCH (09:45)
[2016-12-31] MEDS: LIDOCAINE 5% TOPICAL PATCH TP SCH (09:57)
[2016-12-31] MEDS: ACLIDINIUM BROMIDE 400 MCG/INH AERO.POWD IH SCH ×2 (09:59→23:18)
[2016-12-31] MEDS: BUDESONIDE/FORMETEROL FUMARATE 80/4.5 mcg INHALER IH SCH ×2 (09:59→23:18)
[2016-12-31] MEDS: CEFTRIAXONE 50 ML IVPB SCH (10:15)
[2016-12-31] MEDS: ALBUTEROL SO4 2.5/IPRATROPIUM 0.5 INH SOL 3 ML VIAL.NEB. NEB SCH ×2 (10:35→22:05)
--- NOTE | 2016-12-31 11:23 | PN ---
Progress Note, Physician History of Present Illness: The patient is a 51 year old white female with past medical history of CREST syndrome, cigarette smoking (now on "electronic cigarette"), prescription narcotics abuse, hyperlipidemia, COPD, asthma, gastroparesis, Raynaud's, multiple upper extremity digit amputations, who presents to the ED for 3 days of nausea and vomiting. She describes the vomiting as nonbloody and nonbilious and is accompanied by a loss of appetite. She states that she experiences these symptoms often and relates them to her scleroderma. She denies any diarrhea. The patient states that she was recently discharged from the hospital on 12/17. She denies any recent fever, chills, cough, shortness of breath, chest pain, or urinary symptoms. - Current Medication List Current Medications: Active Medications Aclidinium [place] (Tudorza -) 1 puff IH BID [facility] Last Admin: 12/31/16 09:59 Dose: 1 inh Albuterol Sulfate (Ventolin 0.083% Nebulizer Soln -) 1 amp NEB Q4H PRN PRN Reason: SHORT OF BREATH/WHEEZING Albuterol/Ipratropium (Duoneb -) 1 amp NEB BID [facility] Last Admin: 12/31/16 10:35 Dose: 1 amp Bisacodyl (Dulcolax Suppository -) 10 mg RC DAILY PRN PRN Reason: CONSTIPATION Budesonide/Formoterol Fumarate (Symbicort 80/4.5mcg -) 2 puff IH BID [facility] Last Admin: 12/31/16 09:59 Dose: 2 puff Heparin Sodium (Porcine) (Heparin -) 5,000 unit SQ TID [facility] Last Admin: 12/31/16 06:54 Dose: 5,000 unit Pantoprazole Sodium (Protonix 40mg Ivpb (Pre-Docked)) 100 mls @ 200 mls/hr IVPB DAILY [facility] Last Admin: 12/30/16 09:44 Dose: 200 mls/hr Ceftriaxone Sodium (Rocephin 1gm Ivpb (Pre-Docked)) 50 mls @ 100 mls/hr IVPB DAILY [facility] Last Admin: 12/30/16 09:44 Dose: 100 mls/hr Metronidazole (Flagyl 500mg Premixed Ivpb -) 100 mls @ 100 mls/hr IVPB Q8H-IV [facility] Last Admin: 12/31/16 01:31 Dose: Not Given Lidocaine (Lidoderm Patch -) 2 patch TP DAILY [facility] Last Admin: 12/31/16 09:57 Dose: 2 patch Ondansetron HCl (Zofran Injection) 4 mg IVPB Q8H PRN PRN Reason: NAUSEA Last Admin: 12/28/16 19:58 Dose: 4 mg - Objective Vital Signs: Vital Signs Temperature 98.9 F 12/31/16 10:05 Pulse Rate 93 H 12/31/16 10:05 Respiratory Rate 18 12/31/16 10:05 Blood Pressure 92/64 12/31/16 10:05 O2 Sat by Pulse Oximetry (%) 94 L 12/30/16 21:00 Eyes: Yes: WNL, Conjunctiva Clear, EOM Intact HENT: Yes: WNL, Atraumatic, Normocephalic Neck: Yes: WNL, Supple, Trachea Midline Cardiovascular: Yes: WNL, Regular Rate and Rhythm Respiratory: Yes: WNL, Regular, CTA Bilaterally Gastrointestinal: Yes: WNL, Normal Bowel Sounds Genitourinary: Yes: WNL Musculoskeletal: Yes: WNL Extremities: Yes: WNL Edema: No Integumentary: Yes: WNL Neurological: Yes: WNL, Alert, Oriented ...Motor Strength: WNL Psychiatric: Yes: WNL Labs: CBC, BMP 12/26/16 06:10 12/26/16 06:10 INR, PTT INR 1.20 (0.82-1.09) H 12/23/16 15:45 Assessment/Plan - Problems (1) CREST (calcinosis, Raynaud's phenomenon, esophageal dysfunction, sclerodactyly, telangiectasia) Code(s): M34.1 - CR(E)ST SYNDROME (2) Abdominal pain Assessment/Plan: s/p surgery for pneumoperitoneum. Leukocytosis; on antibiotics and pain medication. Code(s): R10.9 - UNSPECIFIED ABDOMINAL PAIN (3) COPD (chronic obstructive pulmonary disease) Code(s): J44.9 - CHRONIC OBSTRUCTIVE PULMONARY DISEASE, UNSPECIFIED (4) HTN (hypertension) Assessment/Plan: bp stable Code(s): I10 - ESSENTIAL (PRIMARY) HYPERTENSION (5) Opiate dependence Assessment/Plan: The imperative need to join a program with gradual weaning from the many medications she takes was discussed in detail. Code(s): F11.20 - OPIOID DEPENDENCE, UNCOMPLICATED
--- NOTE | 2016-12-31 14:16 | PN ---
Progress Note, Physician History of Present Illness: No c/o abdominal pain Tolerating solid diet No c/o fever/ chills WBC WNL - Current Medication List Current Medications: Active Medications Aclidinium [place] (Tudorza -) 1 puff IH BID [facility] Last Admin: 12/31/16 09:59 Dose: 1 inh Albuterol Sulfate (Ventolin 0.083% Nebulizer Soln -) 1 amp NEB Q4H PRN PRN Reason: SHORT OF BREATH/WHEEZING Albuterol/Ipratropium (Duoneb -) 1 amp NEB BID [facility] Last Admin: 12/31/16 10:35 Dose: 1 amp Bisacodyl (Dulcolax Suppository -) 10 mg RC DAILY PRN PRN Reason: CONSTIPATION Budesonide/Formoterol Fumarate (Symbicort 80/4.5mcg -) 2 puff IH BID [facility] Last Admin: 12/31/16 09:59 Dose: 2 puff Heparin Sodium (Porcine) (Heparin -) 5,000 unit SQ TID [facility] Last Admin: 12/31/16 13:55 Dose: 5,000 unit Pantoprazole Sodium (Protonix 40mg Ivpb (Pre-Docked)) 100 mls @ 200 mls/hr IVPB DAILY [facility] Last Admin: 12/31/16 09:45 Dose: 200 mls/hr Ceftriaxone Sodium (Rocephin 1gm Ivpb (Pre-Docked)) 50 mls @ 100 mls/hr IVPB DAILY [facility] Last Admin: 12/31/16 10:15 Dose: 100 mls/hr Metronidazole (Flagyl 500mg Premixed Ivpb -) 100 mls @ 100 mls/hr IVPB Q8H-IV [facility] Last Admin: 12/31/16 11:00 Dose: 100 mls/hr Lidocaine (Lidoderm Patch -) 2 patch TP DAILY [facility] Last Admin: 12/31/16 09:57 Dose: 2 patch Ondansetron HCl (Zofran Injection) 4 mg IVPB Q8H PRN PRN Reason: NAUSEA Last Admin: 12/28/16 19:58 Dose: 4 mg - Objective Vital Signs: Vital Signs Temperature 98.9 F 12/31/16 10:05 Pulse Rate 93 H 12/31/16 10:05 Respiratory Rate 18 12/31/16 10:05 Blood Pressure 92/64 12/31/16 10:05 O2 Sat by Pulse Oximetry (%) 94 L 12/30/16 21:00 Constitutional: Yes: No Distress, Cachectic Eyes: Yes: Conjunctiva Clear Cardiovascular: Yes: Regular Rate and Rhythm, S1, S2 Respiratory: Yes: CTA Bilaterally Gastrointestinal: Yes: Normal Bowel Sounds, Soft. No: Tenderness Edema: No Labs: CBC, BMP 12/26/16 06:10 12/26/16 06:10 INR, PTT INR 1.20 (0.82-1.09) H 12/23/16 15:45 Assessment/Plan Post op exploratory laparotomy Possible perforated viscus/ sepsis secondary to GI focus PCN allergy Clinically improved Afebrile, normal WBC C/S no growth Continue empiric ceftriaxone/ flagyl, day #9 D/C antibiotics after am dose
--- NOTE | 2016-12-31 14:43 | PN ---
Progress Note (short form) - Note Progress Note: No CP or SOB. Tolerating PO intake. No acute events overnight. Intake & Output 12/28/16 12/29/16 12/30/16 12/31/16 23:59 23:59 23:59 23:59 Intake Total 2690 1540 1600 250 Output Total 660 Balance 2029 1540 1600 250 Weight 101 lb 5 oz 101 lb 4 oz Last Vital Signs Temp Pulse Resp BP Pulse Ox 98.9 F 93 H 18 92/64 94 L 12/31/16 10:05 12/31/16 10:05 12/31/16 10:05 12/31/16 10:05 12/30/16 21:00 Active Medications Aclidinium [place] (Tudorza -) 1 puff IH BID [facility] Last Admin: 12/31/16 09:59 Dose: 1 inh Albuterol Sulfate (Ventolin 0.083% Nebulizer Soln -) 1 amp NEB Q4H PRN PRN Reason: SHORT OF BREATH/WHEEZING Albuterol/Ipratropium (Duoneb -) 1 amp NEB BID [facility] Last Admin: 12/31/16 10:35 Dose: 1 amp Bisacodyl (Dulcolax Suppository -) 10 mg RC DAILY PRN PRN Reason: CONSTIPATION Budesonide/Formoterol Fumarate (Symbicort 80/4.5mcg -) 2 puff IH BID [facility] Last Admin: 12/31/16 09:59 Dose: 2 puff Heparin Sodium (Porcine) (Heparin -) 5,000 unit SQ TID [facility] Last Admin: 12/31/16 13:55 Dose: 5,000 unit Pantoprazole Sodium (Protonix 40mg Ivpb (Pre-Docked)) 100 mls @ 200 mls/hr IVPB DAILY [facility] Last Admin: 12/31/16 09:45 Dose: 200 mls/hr Ceftriaxone Sodium (Rocephin 1gm Ivpb (Pre-Docked)) 50 mls @ 100 mls/hr IVPB DAILY [facility] Last Admin: 12/31/16 10:15 Dose: 100 mls/hr Metronidazole (Flagyl 500mg Premixed Ivpb -) 100 mls @ 100 mls/hr IVPB Q8H-IV [facility] Last Admin: 12/31/16 11:00 Dose: 100 mls/hr Lidocaine (Lidoderm Patch -) 2 patch TP DAILY [facility] Last Admin: 12/31/16 09:57 Dose: 2 patch Ondansetron HCl (Zofran Injection) 4 mg IVPB Q8H PRN PRN Reason: NAUSEA Last Admin: 12/28/16 19:58 Dose: 4 mg Gen: NAD Heart: RRR Lung: few scattered rhonchi Abd: softly distended Ext: no edema A Problem List - Problems (1) Pneumoperitoneum Code(s): K66.8 - OTHER SPECIFIED DISORDERS OF PERITONEUM (2) CREST syndrome Code(s): M34.1 - CR(E)ST SYNDROME (3) Scleroderma Code(s): M34.9 - SYSTEMIC SCLEROSIS, UNSPECIFIED (4) COPD (chronic obstructive pulmonary disease) Code(s): J44.9 - CHRONIC OBSTRUCTIVE PULMONARY DISEASE, UNSPECIFIED (5) Atelectasis Code(s): J98.11 - ATELECTASIS (6) Lactic acidosis Code(s): E87.2 - ACIDOSIS (7) Opioid dependence, uncomplicated Code(s): F11.20 - OPIOID DEPENDENCE, UNCOMPLICATED A/P Pneumoperitoneum s/p ex-laparotomy COPD Atelectasis Scleroderma/CREST syndrome - PO as tolerated - pain control - incentive spirometry - inhaled bronchodilators - Monitor off systemic steroids - ABX per ID - O2 as needed - DVT prophylaxis Dr Owens
[2016-12-31] MEDS: POLYETHYLENE GLYCOL 3350 255 GM BTL PO SCH (15:05)
--- NOTE | 2016-12-31 16:25 | PN ---
Progress Note, Physician Chief Complaint: OOB to chair on soft food tolerated well, less pain, passed gas but no stools yet; afebrile; asking when she can go home mother at bedside - Current Medication List Current Medications: Active Medications Aclidinium [place] (Tudorza -) 1 puff IH BID [facility] Last Admin: 12/31/16 09:59 Dose: 1 inh Albuterol Sulfate (Ventolin 0.083% Nebulizer Soln -) 1 amp NEB Q4H PRN PRN Reason: SHORT OF BREATH/WHEEZING Albuterol/Ipratropium (Duoneb -) 1 amp NEB BID [facility] Last Admin: 12/31/16 10:35 Dose: 1 amp Bisacodyl (Dulcolax Suppository -) 10 mg RC DAILY PRN PRN Reason: CONSTIPATION Budesonide/Formoterol Fumarate (Symbicort 80/4.5mcg -) 2 puff IH BID [facility] Last Admin: 12/31/16 09:59 Dose: 2 puff Heparin Sodium (Porcine) (Heparin -) 5,000 unit SQ TID [facility] Last Admin: 12/31/16 13:55 Dose: 5,000 unit Pantoprazole Sodium (Protonix 40mg Ivpb (Pre-Docked)) 100 mls @ 200 mls/hr IVPB DAILY [facility] Last Admin: 12/31/16 09:45 Dose: 200 mls/hr Ceftriaxone Sodium (Rocephin 1gm Ivpb (Pre-Docked)) 50 mls @ 100 mls/hr IVPB DAILY [facility] Last Admin: 12/31/16 10:15 Dose: 100 mls/hr Metronidazole (Flagyl 500mg Premixed Ivpb -) 100 mls @ 100 mls/hr IVPB Q8H-IV [facility] Last Admin: 12/31/16 11:00 Dose: 100 mls/hr Lidocaine (Lidoderm Patch -) 2 patch TP DAILY [facility] Last Admin: 12/31/16 09:57 Dose: 2 patch Ondansetron HCl (Zofran Injection) 4 mg IVPB Q8H PRN PRN Reason: NAUSEA Last Admin: 12/28/16 19:58 Dose: 4 mg Polyethylene Glycol (Miralax (For Bowel Prep) -) 17 gm PO DAILY [facility] Last Admin: 12/31/16 15:05 Dose: 17 gm - Objective Vital Signs: Vital Signs Temperature 99.1 F 12/31/16 14:41 Pulse Rate 87 12/31/16 14:41 Respiratory Rate 20 12/31/16 14:41 Blood Pressure 96/65 12/31/16 14:41 O2 Sat by Pulse Oximetry (%) 96 12/31/16 09:00 Constitutional: Yes: No Distress, Calm Eyes: Yes: Conjunctiva Clear HENT: Yes: Atraumatic Neck: Yes: Supple Cardiovascular: Yes: Regular Rate and Rhythm Respiratory: Yes: CTA Bilaterally Gastrointestinal: Yes: Soft. No: Tenderness Genitourinary: No: CVA Tenderness - Left, CVA Tenderness - Right Musculoskeletal: No: Joint Stiffness, Joint Swelling Extremities: No: Cold, Cool Edema: No Peripheral Pulses WNL: Yes Integumentary: No: Rash, Venous Stasis Changes Neurological: Yes: WNL, Alert, Oriented ...Motor Strength: WNL Psychiatric: Yes: WNL, Alert, Oriented. No: Agitated Labs: CBC, BMP 12/26/16 06:10 12/26/16 06:10 INR, PTT INR 1.20 (0.82-1.09) H 12/23/16 15:45 - ....Imaging Other: Report Reviewed Assessment/Plan The patient is a 51 year old female with past medical history of cigarette smoking, prescription narcotics abuse, hyperlipidemia, COPD, asthma, scleroderma , gastroparesis, Raynaud's, multiple upper extremity digit amputations, and CREST syndrome who presents to the ED for 3 days of nausea and vomiting and abdominal pain; CXR showed free air under diaphragm; abdomen CT confirmed bowel perforation and dilated bowels. admitted to inpt, s/p exploratory lap r/o perforated viscus to advance diet per surgery; IV antibiotics per ID po miralax prn wound care GI and surgery f/u cardio, pulm f/u DVT, aspiration, falls and decubs pfx d/w pt and d.w mother at bedside - opiates tapering to off as outpt addressed again
[2017-01-01] MEDS: METRONIDAZOLE 500 MG PREMIXED 100 ML IVPB SCH ×2 (01:54→09:37)
[2017-01-01] MEDS: HEPARIN NA (PORCINE) 5,000 UNITS/ML 1ML VIAL SQ SCH (05:50)
--- NOTE | 2017-01-01 08:17 | PN ---
Progress Note (short form) - Note Progress Note: POD #9 Alert. Sitting up i bed and eating her breakfast. States she had a small bm. Passing flatus. Voiding spontaneously. Ambulating unassisted. Denies n/v/f/c, CP or SOB. Afebrile. AVSS. PE Gen: alert. nad. ABD: midline incision intact with gopi. LE: soft. nt b/l Problem List - Problems (1) Pneumoperitoneum Assessment/Plan: POD #9 Patient is cleared for discharge from a surgical standpoint. Please have patient follow-up with Dr. Burns at his office 01/08/17, call for an appointment On behalf of Dr. Burns, thank you for the opportunity to participate in your patient's care. Code(s): K66.8 - OTHER SPECIFIED DISORDERS OF PERITONEUM (2) Opiate dependence Code(s): F11.20 - OPIOID DEPENDENCE, UNCOMPLICATED
[2017-01-01] MEDS: CEFTRIAXONE 50 ML IVPB SCH (09:37)
[2017-01-01] MEDS: BUDESONIDE/FORMETEROL FUMARATE 80/4.5 mcg INHALER IH SCH (09:38)
[2017-01-01] MEDS: LIDOCAINE 5% TOPICAL PATCH TP SCH (09:38)
[2017-01-01] MEDS: ACLIDINIUM BROMIDE 400 MCG/INH AERO.POWD IH SCH (09:39)
[2017-01-01] MEDS: POLYETHYLENE GLYCOL 3350 255 GM BTL PO SCH (09:42)
[2017-01-01 09:53] VITALS: BP 90/60; TEMP 98.7
--- NOTE | 2017-01-01 09:54 | PN ---
Progress Note (short form) - Note Progress Note: No CP or SOB. Tolerating PO intake. No acute events overnight. Intake & Output 12/29/16 12/30/16 12/31/16 01/01/17 23:59 23:59 23:59 23:59 Intake Total 1540 1600 1570 Balance 1540 1600 1570 Weight 101 lb 5 oz 101 lb 4 oz 101 lb Last Vital Signs Temp Pulse Resp BP Pulse Ox 98.7 F 87 16 90/60 96 01/01/17 09:00 01/01/17 09:00 01/01/17 09:00 01/01/17 09:00 12/31/16 09:00 Active Medications Aclidinium [place] (Tudorza -) 1 puff IH BID [facility] Last Admin: 01/01/17 09:39 Dose: 1 inh Albuterol Sulfate (Ventolin 0.083% Nebulizer Soln -) 1 amp NEB Q4H PRN PRN Reason: SHORT OF BREATH/WHEEZING Albuterol/Ipratropium (Duoneb -) 1 amp NEB BID [facility] Last Admin: 12/31/16 22:05 Dose: Not Given Bisacodyl (Dulcolax Suppository -) 10 mg RC DAILY PRN PRN Reason: CONSTIPATION Budesonide/Formoterol Fumarate (Symbicort 80/4.5mcg -) 2 puff IH BID [facility] Last Admin: 01/01/17 09:38 Dose: 2 puff Heparin Sodium (Porcine) (Heparin -) 5,000 unit SQ TID [facility] Last Admin: 01/01/17 05:50 Dose: 5,000 unit Pantoprazole Sodium (Protonix 40mg Ivpb (Pre-Docked)) 100 mls @ 200 mls/hr IVPB DAILY [facility] Last Admin: 12/31/16 09:45 Dose: 200 mls/hr Ceftriaxone Sodium (Rocephin 1gm Ivpb (Pre-Docked)) 50 mls @ 100 mls/hr IVPB DAILY [facility] Last Admin: 01/01/17 09:37 Dose: 100 mls/hr Metronidazole (Flagyl 500mg Premixed Ivpb -) 100 mls @ 100 mls/hr IVPB Q8H-IV [facility] Last Admin: 01/01/17 09:37 Dose: 100 mls/hr Lidocaine (Lidoderm Patch -) 2 patch TP DAILY [facility] Last Admin: 01/01/17 09:38 Dose: 2 patch Ondansetron HCl (Zofran Injection) 4 mg IVPB Q8H PRN PRN Reason: NAUSEA Last Admin: 12/28/16 19:58 Dose: 4 mg Polyethylene Glycol (Miralax (For Bowel Prep) -) 17 gm PO DAILY [facility] Last Admin: 01/01/17 09:42 Dose: 17 gm Gen: NAD Heart: RRR Lung: few scattered rhonchi Abd: softly distended Ext: no edema Problem List - Problems (1) Pneumoperitoneum Code(s): K66.8 - OTHER SPECIFIED DISORDERS OF PERITONEUM (2) CREST syndrome Code(s): M34.1 - CR(E)ST SYNDROME (3) Scleroderma Code(s): M34.9 - SYSTEMIC SCLEROSIS, UNSPECIFIED (4) COPD (chronic obstructive pulmonary disease) Code(s): J44.9 - CHRONIC OBSTRUCTIVE PULMONARY DISEASE, UNSPECIFIED (5) Atelectasis Code(s): J98.11 - ATELECTASIS (6) Lactic acidosis Code(s): E87.2 - ACIDOSIS (7) Opioid dependence, uncomplicated Code(s): F11.20 - OPIOID DEPENDENCE, UNCOMPLICATED A/P Pneumoperitoneum s/p ex-laparotomy COPD Atelectasis Scleroderma/CREST syndrome - PO as tolerated - pain control - incentive spirometry - inhaled bronchodilators - Monitor off systemic steroids - ABX per ID - O2 as needed - DVT prophylaxis - D/C planning Dr Owens
[2017-01-01] MEDS: ALBUTEROL SO4 2.5/IPRATROPIUM 0.5 INH SOL 3 ML VIAL.NEB. NEB SCH (09:58)
[2017-01-01 09:59] VITALS: PULSE 86
--- NOTE | 2017-01-01 10:12 | DS ---
Physical Examination Vital Signs: Vital Signs Temperature 98.7 F 01/01/17 09:00 Pulse Rate 86 01/01/17 09:59 Respiratory Rate 16 01/01/17 09:00 Blood Pressure 90/60 01/01/17 09:00 O2 Sat by Pulse Oximetry (%) 95 01/01/17 09:59 Findings/Remarks: in bed feels well wants to go home d/w surgery dr Burns, pt ate OK regular food, had a large BM, passed adonay; ambulatory, got OOB to chair and walked OK to DC home, f/u in office in 1 week, remove heather with surgery in 1 week d/w pt DC instructions scripts done d/w H staff; pt does not want VNS, Home O2 advised again to taper opiates to off completely consider INPT Rehab/detox, f/u with pain mngt Constitutional: Yes: No Distress, Calm Eyes: Yes: Conjunctiva Clear HENT: Yes: Atraumatic Neck: Yes: Supple Cardiovascular: Yes: Regular Rate and Rhythm Respiratory: Yes: CTA Bilaterally Gastrointestinal: Yes: Soft. No: Distention, Tenderness Renal/: No: CVA Tenderness - Left, CVA Tenderness - Right, Hematuria Musculoskeletal: No: Joint Stiffness, Joint Swelling Extremities: No: Cold, Cool Edema: No Integumentary: No: Rash, Venous Stasis Changes Neurological: Yes: WNL, Alert, Oriented ...Motor Strength: WNL Psychiatric: Yes: WNL, Alert, Oriented. No: Agitated, Suicidal Ideation Labs: CBC, BMP 12/26/16 06:10 12/26/16 06:10 Discharge Summary Reason For Visit: INTRACTABLE VOMITING Current Active Problems Atelectasis (Acute) CREST (calcinosis, Raynaud's phenomenon, esophageal dysfunction, sclerodactyly, telangiectasia) (Acute) Cigarette nicotine dependence (Acute) Intractable vomiting (Acute) Pneumoperitoneum (Acute) Small bowel obstruction (Acute) Procedures: Principal: abdominal pain, N/V/ free air under diaphragm Other Procedures: laparotomy per surgery dr Burns [facility] Course: IV ATB per ID improved; f/u in office as advised Condition: Stable - Instructions Diet, Activity, Other Instructions: f/u PCP and surgery in 1 week f/u with rheuatology, pulmonary and pain mngt in 2-4 weeks outpt opiates detox/rehab to help stopping all opiates RTER if fever/abdominal pain/vomiting scripts done Dr Burns's Discharge Instructions Dear DEN, Post Operative Instructions Physical activity Resume your normal everyday activity as tolerated no heavy lifting or exercise until seen by your surgeon. You may walk unlimited zander of and climb stairs. You may resume driving the car when you feel safe and comfortable behind the wheel. Wound care Heather will be removed in Dr. Burns's office Diet There are no dietary restrictions. Eat healthy, high-fiber foods. Drink 6 to 8 glasses of liquid each day. This will assist in keeping your bowels are regular. Pain management Patient's attending spoke with her about weaning off of opiods. You may take Tylenol or acetaminophen or Ibuprofen (for example, Motrin, Advil etc.) Call Dr. Burns for any of the following: Fever of 101 or higher Excessive bleeding or drainage on dressing Inability to urinate Call the office at [phone] for an appointment 01/08/17 Referrals: Eva Gonzalez [Primary Care Provider] - Chris Burns MD [Staff Physician] - Hai Youngblood MD, MD [Staff Physician] - Sonny Leon MD [Staff Physician] - Vivian Valentin MD [Staff Physician] - Disposition: HOME - Home Medications Comprehensive Discharge Medication List: Ambulatory Orders Duloxetine HCl [Cymbalta -] 60 mg PO DAILY #30 capsule. 03/10/15 Albuterol 0.083% Nebulizer [place] [Ventolin 0.083% Nebulizer Soln -] 1 amp NEB Q4H PRN #1 amp 04/11/16 Aspirin [ASA -] 81 mg PO DAILY tab.chew 04/11/16 Budesonide/Formeterol Fumarate [SYMBICORT 80/4.5mcg -] 2 puff IH BID #1 inhaler 04/11/16 Ranitidine [Zantac -] 150 mg PO DAILY 05/27/16 Gabapentin [Neurontin -] 800 mg PO TID capsule 05/28/16 Aclidinium [place] [Tudorza -] 1 puff IH DAILY inhaler 07/20/16 Lactobacillus Acidophilus [Bacid -] 1 each PO DAILY #30 capsule 07/20/16 Metoclopramide HCl [Reglan -] 10 mg PO ACHS tablet 07/20/16 Acetaminophen [Tylenol .Regular Strength -] 650 mg PO Q6H PRN #0 tablet Hydroxychloroquine So4 [Plaquenil -] 200 mg PO BID tablet 07/31/16 Pantoprazole Sodium [Protonix -] 40 mg PO BID tablet.ec 07/31/16 Cyclobenzaprine HCl [Flexeril -] 5 mg PO BID PRN #20 tablet 09/16/16 Lidocaine 5% Patch [Lidoderm -] 2 patch TP DAILY #60 patch 09/16/16 Albuterol 2.5/Ipratropium 0.5 [Duoneb -] 1 amp NEB BID amp 12/17/16 Multivitamins [Multivit ([facility] Formul[facility])] 1 tab PO DAILY tab 12/17/16 Magnesium Oxide [Mag-Ox -] 400 mg PO BID #30 tablet MDD 2 12/18/16 Potassium Chloride [K-Dur -] 20 meq PO DAILY #30 tab 12/18/16 Bisacodyl Suppository [Dulcolax Suppository -] 10 mg RC DAILY PRN #0 supp.rect 01/01/17 Cephalexin Monohydrate [Keflex -] 500 mg PO TID #15 cap 01/01/17 Metronidazole [Flagyl -] 500 mg PO TID #15 tablet 01/01/17 Polyethylene Glycol 3350 [Miralax 119 gm Btl -] 17 gm PO DAILY PRN #0 bottle Polyethylene Glycol 3350 [Miralax 255 gm Btl -] 17 gm PO DAILY bottle 01/01/17
--- NOTE | 2017-01-01 11:14 | PN ---
Progress Note, Physician History of Present Illness: The patient is a 51 year old white female with past medical history of CREST syndrome, cigarette smoking (now on "electronic cigarette"), prescription narcotics abuse, hyperlipidemia, COPD, asthma, gastroparesis, Raynaud's, multiple upper extremity digit amputations, who presents to the ED for 3 days of nausea and vomiting. She describes the vomiting as nonbloody and nonbilious and is accompanied by a loss of appetite. She states that she experiences these symptoms often and relates them to her scleroderma. She denies any diarrhea. The patient states that she was recently discharged from the hospital on 12/17. She denies any recent fever, chills, cough, shortness of breath, chest pain, or urinary symptoms. - Current Medication List Current Medications: Active Medications Aclidinium [place] (Tudorza -) 1 puff IH BID [facility] Last Admin: 01/01/17 09:39 Dose: 1 inh Albuterol Sulfate (Ventolin 0.083% Nebulizer Soln -) 1 amp NEB Q4H PRN PRN Reason: SHORT OF BREATH/WHEEZING Albuterol/Ipratropium (Duoneb -) 1 amp NEB BID [facility] Last Admin: 01/01/17 09:58 Dose: 1 amp Bisacodyl (Dulcolax Suppository -) 10 mg RC DAILY PRN PRN Reason: CONSTIPATION Budesonide/Formoterol Fumarate (Symbicort 80/4.5mcg -) 2 puff IH BID [facility] Last Admin: 01/01/17 09:38 Dose: 2 puff Heparin Sodium (Porcine) (Heparin -) 5,000 unit SQ TID [facility] Last Admin: 01/01/17 05:50 Dose: 5,000 unit Pantoprazole Sodium (Protonix 40mg Ivpb (Pre-Docked)) 100 mls @ 200 mls/hr IVPB DAILY [facility] Last Admin: 12/31/16 09:45 Dose: 200 mls/hr Ceftriaxone Sodium (Rocephin 1gm Ivpb (Pre-Docked)) 50 mls @ 100 mls/hr IVPB DAILY [facility] Last Admin: 01/01/17 09:37 Dose: 100 mls/hr Metronidazole (Flagyl 500mg Premixed Ivpb -) 100 mls @ 100 mls/hr IVPB Q8H-IV [facility] Last Admin: 01/01/17 09:37 Dose: 100 mls/hr Lidocaine (Lidoderm Patch -) 2 patch TP DAILY [facility] Last Admin: 01/01/17 09:38 Dose: 2 patch Ondansetron HCl (Zofran Injection) 4 mg IVPB Q8H PRN PRN Reason: NAUSEA Last Admin: 12/28/16 19:58 Dose: 4 mg Polyethylene Glycol (Miralax (For Bowel Prep) -) 17 gm PO DAILY [facility] Last Admin: 01/01/17 09:42 Dose: 17 gm - Objective Vital Signs: Vital Signs Temperature 98.7 F 01/01/17 09:00 Pulse Rate 86 01/01/17 09:59 Respiratory Rate 16 01/01/17 09:00 Blood Pressure 90/60 01/01/17 09:00 O2 Sat by Pulse Oximetry (%) 95 01/01/17 09:59 Eyes: Yes: WNL, Conjunctiva Clear, EOM Intact HENT: Yes: WNL, Atraumatic, Normocephalic Neck: Yes: WNL, Supple, Trachea Midline Cardiovascular: Yes: WNL, Regular Rate and Rhythm Respiratory: Yes: WNL, Regular, CTA Bilaterally Gastrointestinal: Yes: WNL, Normal Bowel Sounds Genitourinary: Yes: WNL Musculoskeletal: Yes: WNL Extremities: Yes: WNL Edema: No Integumentary: Yes: WNL Neurological: Yes: WNL, Alert, Oriented ...Motor Strength: WNL Psychiatric: Yes: WNL Labs: CBC, BMP 12/26/16 06:10 12/26/16 06:10 INR, PTT INR 1.20 (0.82-1.09) H 12/23/16 15:45 Assessment/Plan - Problems (1) CREST (calcinosis, Raynaud's phenomenon, esophageal dysfunction, sclerodactyly, telangiectasia) Code(s): M34.1 - CR(E)ST SYNDROME (2) Abdominal pain Assessment/Plan: s/p surgery for pneumoperitoneum. Leukocytosis; on antibiotics and pain medication. Code(s): R10.9 - UNSPECIFIED ABDOMINAL PAIN (3) COPD (chronic obstructive pulmonary disease) Code(s): J44.9 - CHRONIC OBSTRUCTIVE PULMONARY DISEASE, UNSPECIFIED (4) HTN (hypertension) Assessment/Plan: bp stable Code(s): I10 - ESSENTIAL (PRIMARY) HYPERTENSION (5) Opiate dependence Assessment/Plan: The imperative need to join a program with gradual weaning from the many medications she takes was discussed in detail. Code(s): F11.20 - OPIOID DEPENDENCE, UNCOMPLICATED
[2017-01-01] MEDS: PANTOPRAZOLE SODIUM 100 ML IVPB SCH (11:25)
--- NOTE | 2017-01-01 11:32 | PN ---
Progress Note, Physician History of Present Illness: OOB in chair No c/o abdominal pain Tolerating diet + BM No fever/ chills - Current Medication List Current Medications: Active Medications Aclidinium [place] (Tudorza -) 1 puff IH BID [facility] Last Admin: 01/01/17 09:39 Dose: 1 inh Albuterol Sulfate (Ventolin 0.083% Nebulizer Soln -) 1 amp NEB Q4H PRN PRN Reason: SHORT OF BREATH/WHEEZING Albuterol/Ipratropium (Duoneb -) 1 amp NEB BID [facility] Last Admin: 01/01/17 09:58 Dose: 1 amp Bisacodyl (Dulcolax Suppository -) 10 mg RC DAILY PRN PRN Reason: CONSTIPATION Budesonide/Formoterol Fumarate (Symbicort 80/4.5mcg -) 2 puff IH BID [facility] Last Admin: 01/01/17 09:38 Dose: 2 puff Heparin Sodium (Porcine) (Heparin -) 5,000 unit SQ TID [facility] Last Admin: 01/01/17 05:50 Dose: 5,000 unit Pantoprazole Sodium (Protonix 40mg Ivpb (Pre-Docked)) 100 mls @ 200 mls/hr IVPB DAILY [facility] Last Admin: 12/31/16 09:45 Dose: 200 mls/hr Ceftriaxone Sodium (Rocephin 1gm Ivpb (Pre-Docked)) 50 mls @ 100 mls/hr IVPB DAILY [facility] Last Admin: 01/01/17 09:37 Dose: 100 mls/hr Metronidazole (Flagyl 500mg Premixed Ivpb -) 100 mls @ 100 mls/hr IVPB Q8H-IV [facility] Last Admin: 01/01/17 09:37 Dose: 100 mls/hr Lidocaine (Lidoderm Patch -) 2 patch TP DAILY [facility] Last Admin: 01/01/17 09:38 Dose: 2 patch Ondansetron HCl (Zofran Injection) 4 mg IVPB Q8H PRN PRN Reason: NAUSEA Last Admin: 12/28/16 19:58 Dose: 4 mg Polyethylene Glycol (Miralax (For Bowel Prep) -) 17 gm PO DAILY [facility] Last Admin: 01/01/17 09:42 Dose: 17 gm - Objective Vital Signs: Vital Signs Temperature 98.7 F 01/01/17 09:00 Pulse Rate 86 01/01/17 09:59 Respiratory Rate 16 01/01/17 09:00 Blood Pressure 90/60 01/01/17 09:00 O2 Sat by Pulse Oximetry (%) 95 01/01/17 09:59 Constitutional: Yes: No Distress, Cachectic Eyes: Yes: Conjunctiva Clear Cardiovascular: Yes: Regular Rate and Rhythm, S1 Respiratory: Yes: CTA Bilaterally Gastrointestinal: Yes: Normal Bowel Sounds, Soft, Other (Heather in place). No : Tenderness Edema: No Labs: CBC, BMP 12/26/16 06:10 12/26/16 06:10 INR, PTT INR 1.20 (0.82-1.09) H 12/23/16 15:45 Assessment/Plan Post op exploratory laparotomy Possible perforated viscus/ sepsis secondary to GI focus PCN allergy Clinically improved Afebrile, normal WBC C/S no growth D/C antibiotics , observe off
== END 2017-01-01 13:21 | disposition home or self-care (01) | DRG 356 ==
LOC: JER 20:00 → JERBED 23:15 → J7W 12-23 15:28
PROVIDERS: ADMIT Internal Medicine; ATTEND Internal Medicine
PROC: 0WJG0ZZ Inspection of Peritoneal Cavity, Open Approach (ICD-10-PCS; principal; 2016-12-24)
DX: K56.60 Unspecified intestinal obstruction (principal); K63.1 Perforation of intestine (nontraumatic); K65.9 Peritonitis, unspecified; E43 Unspecified severe protein-calorie malnutrition; A41.9 Sepsis, unspecified organism; F11.20 Opioid dependence, uncomplicated; J98.11 Atelectasis; E87.2 Acidosis; Z68.1 Body mass index [BMI] 19.9 or less, adult; I50.32 Chronic diastolic (congestive) heart failure; J44.9 Chronic obstructive pulmonary disease, unspecified; I10 Essential (primary) hypertension; K66.8 Other specified disorders of peritoneum; M34.9 Systemic sclerosis, unspecified; Z88.0 Allergy status to penicillin; Z87.891 Personal history of nicotine dependence
CPT/HCPCS: 36415; 71010-TC; 74000-TC; 74176-TC; 80048; 80053; 80307; 81003; 81015; 82150; 83605; 83690; 83735; 84443; 85025; 85610; 85730; 86850; 86900; 86901; 87040; 87070; 87075; 87086; 87205; 94010; 94640; 94760; 99284-25; J1644

== ENCOUNTER 2017-01-16 19:49 | Inpatient (IN) | payer OTHER ==
[2017-01-16] MEDS ORDERED: METOCLOPRAMIDE HCL INJECTION 10 MG/2 ML VIAL IVPB ONE (21:51)
[2017-01-16] MEDS ORDERED: ONDANSETRON 4 MG/2 ML VIAL IVPB ONE (21:51)
[2017-01-16] MEDS ORDERED: morphine CARPU-JECT 4 MG/1 ML DISP.SYRIN IVPUSH ONE (21:51)
[2017-01-16] MEDS ORDERED: SODIUM CHLORIDE 1,000 ML IV STA (21:51)
--- NOTE | 2017-01-16 21:51 | PDOC ---
History of Present Illness - General History Source: Patient <Jed Mcelroy - Last Filed: 01/17/17 06:01> - General History Source: Patient Exam Limitations: No Limitations - History of Present Illness Initial Comments: 01/16/17 22:17 The patient is a 51 year old female with significant past medical history of s/ p abdominal exploratory laparotomy (12/23/16), nonobstructive ashd and diastolic CHF, narcotics abuse, hyperlipidemia, COPD, asthma, scleroderma, gastroparesis, Raynaud's, multiple upper extremity digit amputations, and CREST syndrome who presents to the ED for 7 days of nausea, vomiting and lack of appetite. Patient reports she is unable to tolerate foods or liquids secondary to the nausea and vomiting. Denies abdominal pain, diarrhea, fever, chills, or diaphoresis. She also reports generalized weakness. The patient denies cough, SOB, chest pain, and palpitations. Patient was admitted on 12/22 and during her admission (12/23) she had an abdominal exploratory laparotomy done. As per operative records, surgeon noted that they ran the entire small bowel from treitz to terminal ileum; ascending colon to sigmoid; inspected stomach; entered lesser sac and no perforations identified. Patient was treated and discharged on 01/01. Allergies: penicillin Social History: Cigarette smoker. No alcohol or drug use reported. Past Surgical History: s/p abdominal exploratory laparotomy (12/23/16), appendectomy, colonoscopy, upper endoscopy PCP: Dr. 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) CVA: No COPD: Yes CHF: No Dementia: No Diabetes: No GI Disorders: Yes (REFLUX) Disorders: No HTN: No Hypercholesterolemia: Yes Liver Disease: No Seizures: No Thyroid Disease: Yes (HYPO.) - Surgical History Abdominal Surgery: Yes Appendectomy: Yes Cardiac Surgery: No Cholecystectomy: No Lung Surgery: No Neurologic Surgery: Yes (LS/RODS &BONE FUSIONS) Orthopedic Surgery: Yes (multiple back sx, hand sx,b/o hip) - Immunization History Immunization Up to Date: Yes - Psycho/Social/Smoking Cessation Hx Anxiety: No Suicidal Ideation: No Smoking Status: No Smoking History: Current every day smoker Have you smoked in the past 12 months: Yes Number of Cigarettes Smoked Daily: 10 If you are a former smoker, when did you quit?: 4 years ago Information on smoking cessation initiated: No 'Breaking Loose' booklet given: 09/12/16 Hx Alcohol Use: No Drug/Substance Use Hx: Yes Substance Use Type: Marijuana, Opiates Hx Substance Use Treatment: (unknown) <Jed Mcelroy - Last Filed: 01/17/17 06:01> <Nita Reynolds - Last Filed: 01/17/17 06:18> - Past Medical History Allergies/Adverse Reactions: Allergies Allergy/AdvReac Type Severity Reaction Status Date / Time Penicillins Allergy Severe Hives Verified 12/22/16 20:08 tomato AdvReac Uncoded 12/22/16 20:08 Home Medications: Ambulatory Orders Duloxetine HCl [Cymbalta -] 60 mg PO DAILY #30 capsule. 03/10/15 Albuterol 0.083% Nebulizer Cinthya [Ventolin 0.083% Nebulizer Soln -] 1 amp NEB Q4H PRN #1 amp 04/11/16 Aspirin [ASA -] 81 mg PO DAILY tab.chew 04/11/16 Budesonide/Formeterol Fumarate [SYMBICORT 80/4.5mcg -] 2 puff IH BID #1 inhaler 04/11/16 Ranitidine [Zantac -] 150 mg PO DAILY 05/27/16 Gabapentin [Neurontin -] 800 mg PO TID capsule 05/28/16 Aclidinium [place] [Tudorza -] 1 puff IH DAILY inhaler 07/20/16 Lactobacillus Acidophilus [Bacid -] 1 each PO DAILY #30 capsule 07/20/16 Metoclopramide HCl [Reglan -] 10 mg PO ACHS tablet 07/20/16 Acetaminophen [Tylenol .Regular Strength -] 650 mg PO Q6H PRN #0 tablet Hydroxychloroquine So4 [Plaquenil -] 200 mg PO BID tablet 07/31/16 Pantoprazole Sodium [Protonix -] 40 mg PO BID tablet.ec 07/31/16 Cyclobenzaprine HCl [Flexeril -] 5 mg PO BID PRN #20 tablet 09/16/16 Lidocaine 5% Patch [Lidoderm -] 2 patch TP DAILY #60 patch 09/16/16 Albuterol 2.5/Ipratropium 0.5 [Duoneb -] 1 amp NEB BID amp 12/17/16 Multivitamins [Multivit ([facility] Formul[facility])] 1 tab PO DAILY tab 12/17/16 Magnesium Oxide [Mag-Ox -] 400 mg PO BID #30 tablet MDD 2 12/18/16 Potassium Chloride [K-Dur -] 20 meq PO DAILY #30 tab 12/18/16 Bisacodyl Suppository [Dulcolax Suppository -] 10 mg RC DAILY PRN #0 supp.rect 01/01/17 Cephalexin Monohydrate [Keflex -] 500 mg PO TID #15 cap 01/01/17 Metronidazole [Flagyl -] 500 mg PO TID #15 tablet 01/01/17 Polyethylene Glycol 3350 [Miralax 119 gm Btl -] 17 gm PO DAILY PRN #0 bottle Polyethylene Glycol 3350 [Miralax 255 gm Btl -] 17 gm PO DAILY bottle 01/01/17 Review of Systems - Review of Systems Able to Perform ROS?: Yes Comments:: 01/16/17 22:17 CONSTITUTIONAL: +loss of appetite, generalized weakness Absent: fever, chills, diaphoresis, generalized weakness, malaise HEENT: Absent: rhinorrhea, nasal congestion, throat pain, throat swelling, difficulty swallowing, mouth swelling, ear pain, eye pain, visual Changes CARDIOVASCULAR: Absent: chest pain, syncope, palpitations, irregular heart rate, lightheadedness , peripheral edema RESPIRATORY: Absent: cough, shortness of breath, dyspnea with exertion, orthopnea, wheezing, stridor, hemoptysis GASTROINTESTINAL: +nausea, vomiting Absent: abdominal pain, abdominal distension, diarrhea, constipation, melena, hematochezia GENITOURINARY: Absent: dysuria, frequency, urgency, hesitancy, hematuria, flank pain, genital pain MUSCULOSKELETAL: Absent: myalgia, arthralgia, joint swelling SKIN: Absent: rash, itching, pallor NEUROLOGIC: Absent: headache, focal weakness or paresthesias, dizziness, unsteady gait, seizure, mental status changes, bladder or bowel incontinence <Bharrat,Nita - Last Filed: 01/17/17 06:18> *Physical Exam - Vital Signs Last Vital Signs Temp Pulse Resp BP Pulse Ox 18 110/45 01/16/17 20:20 01/16/17 20:20 <Jed Mcelroy - Last Filed: 01/17/17 06:01> - Vital Signs Last Vital Signs Temp Pulse Resp BP Pulse Ox 18 110/45 01/16/17 20:20 01/16/17 20:20 - Physical Exam Comments: 01/16/17 22:17 GENERAL: Well developed. Appears drawn. Awake and alert. Moderate distress. HEENT: Normocephalic, atraumatic. PERRLA, EOMI. No conjunctival pallor. Sclera are non- icteric. Dry mucous membranes. Oropharynx is clear. NECK: Supple. Full ROM. No JVD. Carotid pulses 2+ and symmetric, without bruits. No thyromegaly. No lymphadenopathy. CARDIOVASCULAR: Tachycardia. Regular rhythm. No murmurs, rubs, or gallops. Distal pulses are 2+ and symmetric. PULMONARY: No evidence of respiratory distress. Lungs clear to auscultation bilaterally. No wheezing, rales or rhonchi. ABDOMINAL: Soft. Diffuse tenderness. Slightly distended. Well healed midline scar, no erythema or drainage. No rebound or guarding. Decreased bowel sounds. MUSCULOSKELETAL Normal range of motion at all joints. No bony deformities or tenderness. No CVA tenderness. EXTREMITIES: No cyanosis. No clubbing. No edema. No calf tenderness. multiple upper extremity digit amputations. SKIN: Warm and dry. Normal capillary refill. No rashes. No jaundice. NEUROLOGICAL: Alert, awake, appropriate. Cranial nerves 2-12 intact. No deficits to light touch and temperature in face, upper extremities and lower extremities. No motor deficits in the in face, upper extremities and lower extremities. Normoreflexic in the upper and lower extremities. Normal speech. <Nita Reynolds - Last Filed: 01/17/17 06:18> Heart Score/ECG Review - ECG Impressions Comment:: 01/17/17 00:58 Sinus tachycardia @105bpm Nonspecific T wave abnormality Abnormal ECG <AnhaimEdgar wagnerta - Last Filed: 01/17/17 06:18> ED Treatment Course - LABORATORY CBC & Chemistry Diagram: 01/17/17 02:45 01/17/17 02:45 <Jed Mcelroy - Last Filed: 01/17/17 06:01> - LABORATORY CBC & Chemistry Diagram: 01/17/17 02:45 01/17/17 02:45 - RADIOLOGY Radiograph Interpretation: 01/17/17 06:03 Exam: Noncontrast CT abdomen and pelvis Reviewed by Imaging conductor freight: Findings: The patient is cachectic. Fluid in the distal esophagus may represent either reflux or stasis. Patchy micronodular opacities are noted in both lung bases more prominent on the left consistent with small airway disease. The liver, gallbladder, spleen and pancreas all have a normal unenhanced appearance. The adrenal glands and kidneys have a normal unenhanced appearance. Dilated loops of small bowel are seen throughout the abdomen and pelvis measuring up to 5 cm in diameter. The point of obstruction is not identified but appears to involve the distal small bowel. Nondistended terminal ileum is noted. Gas and stool is seen throughout the colon. The patient is status post hysterectomy. No adnexal masses are seen. The urinary bladder is unremarkable. The patient is status post fusion posterior fixation in the lumbosacral spine with post laminectomy changes. No abdominal or pelvic adenopathy is seen. No lytic or blastic destructive osseous lesions are seen. Impression: Distal small bowel obstruction. The transition point is not identified. Difficult exam due to a paucity of intra-abdominal fat. <Nita Reynolds - Last Filed: 01/17/17 06:18> Medical Decision Making - Medical Decision Making 01/17/17 06:01 Dr. Mcelroy: The scribe's documentation has been prepared under my direction and personally reviewed by me in its entirery. I confirm that the note above accurately reflects all work, treatment, procedures, and medical decision making performed by me. <Jed Mcelroy - Last Filed: 01/17/17 06:01> - Medical Decision Making 01/17/17 06:[address] Eva Gonzalez (via answering service) at 6:09 Awaiting call back 01/17/17 06:18 Patient's case discussed with Dr. Eva Gonzalez at 6:18 <Nita Reynolds - Last Filed: 01/17/17 06:18> *DC/Admit/Observation/Transfer - Discharge Dispostion Admit: Yes <Jed Mcelroy - Last Filed: 01/17/17 06:01> - Attestations Scribe Attestion: 01/16/17 22:18 Documentation prepared by Nita Reynolds, acting as district medical examiner for Jed Mcelroy MD/DO. <Nita Reynolds - Last Filed: 01/17/17 06:18> Diagnosis at time of Disposition: Small bowel obstruction - Referrals Referrals: Eva Gonzalez [Primary Care Provider] -
[2017-01-16] MEDS ORDERED: ONDANSETRON 4 MG/2 ML VIAL ONE (23:05)
[2017-01-16] MEDS ORDERED: morphine CARPU-JECT 2 MG/1 ML DISP.SYRIN ONE (23:07)
[2017-01-16] MEDS ORDERED: METOCLOPRAMIDE HCL INJECTION 10 MG/2 ML VIAL ONE (23:12)
[2017-01-17] MEDS ORDERED: SODIUM CHLORIDE 1,000 ML IV STA ×2 (01:05→06:22)
[2017-01-17] MEDS ORDERED: DEXTROSE 5%-0.45% SALINE 1,000 ML IV SCH (02:00)
[2017-01-17 03:10] LABS: BASOPHIL 0.3 % (0-2.0); EOSINOPHIL 0.1 % (0-4.5); MCH 25.8 pg (25.7-33.7); MCHC 32.5 g/dl (32.0-36.0); MEAN CELL VOLUME 79.3 fl (80-96); MEAN PLT VOLUME 8.8 fl (7.5-11.1); NEUTROPHILS 75.5 % (42.8-82.8); PLATELET COUNT 493 K/MM3 (134-434); RDW 19.3 % (11.6-15.6); WHITE BLOOD COUNT 11.7 K/mm3 (4.0-10.0)
[2017-01-17 03:35] LABS: ALBUMIN 3.3 g/dl (3.4-5.0); BILIRUBIN,TOTAL 0.3 mg/dL (0.2-1.0); CALCIUM 8.5 mg/dL (8.5-10.1); COCKROFT - GAULT 10.9565; CREATININE 4.3 mg/dL (0.55-1.02); TOT PROT 8.8 g/dl (6.4-8.2)
[2017-01-17] MEDS ORDERED: METOCLOPRAMIDE HCL INJECTION 10 MG/2 ML VIAL IVPUSH ONE (04:27)
[2017-01-17] MEDS ORDERED: METOCLOPRAMIDE HCL INJECTION 10 MG/2 ML VIAL ONE (04:27)
[2017-01-17] MEDS ORDERED: HYDROmorphone HCL CARPU-JECT 1 MG/1 ML DISP.SYRIN IVPUSH ONE (04:27)
[2017-01-17] MEDS ORDERED: HYDROmorphone HCL CARPU-JECT 1 MG/1 ML DISP.SYRIN ONE (04:28)
[2017-01-17] MEDS ORDERED: BISACODYL 10 MG SUPP.RECT RC PRN (08:24)
[2017-01-17] MEDS ORDERED: ALBUTEROL SO4 0.083% IH SOL 2.5 MG/3 ML VIAL.NEB. NEB PRN (08:24)
[2017-01-17] MEDS ORDERED: SODIUM CHLORIDE 1,000 ML IV SCH (08:30)
--- NOTE | 2017-01-17 08:32 | HP ---
Admitting History and Physical - Primary Care Physician PCP: Eva Gonzalez S - Admission Chief Complaint: vomiting, weakness History of Present Illness: The patient is a 51 year old female with significant past medical history of s/ p abdominal exploratory laparotomy (12/23/16), nonobstructive ashd and diastolic CHF, narcotics abuse, hyperlipidemia, COPD, asthma, scleroderma, gastroparesis, Raynaud's, multiple upper extremity digit amputations, and CREST syndrome who presents to the ED for 3 days of nausea, vomiting and lack of appetite. Patient reports she is unable to tolerate foods or liquids secondary to the nausea and vomiting. Denies abdominal pain, diarrhea, fever, chills, or diaphoresis. She also reports generalized weakness. found to be in ARF creat 4.3 History Source: Patient, Medical Record Limitations to Obtaining History: No Limitations - Past Medical History VENEER DRIER: Yes: Peripheral Neuropathy Cardiovascular: Yes: Aortic Insufficiency (mild), Mitral Insufficiency (mild), Other (Raynaud's w/ multiple upper extremity digit amputations. Normal coronaries on cardiac cath and EF 65% with mild AI, trace MR and TR on echo @ [facility] [place] Pulmonary: Yes: Asthma, COPD, Pneumonia, Other (lung mass of undetermined etiology) Gastrointestinal: Yes: Constipation, Diverticulitis, Diverticulosis (small bowel diverticular perforation, scleroderma affecting the esophagus, Bonner's esophagus, Schatzki ring,GAVE syndrome, antral ulcer, gastroparesis related to scleroderma), GERD (with long segment Bonner's esophagus and patent Schatzki ring), Peptic Ulcer Disease (antral ulcer ), Other (Bonner's esophagus, GERD, Schatzki ring, perforation of small bowel diverticulum, antral ulcer, scleroderma causing esophageal dysmotility and gastroparesis, GERD with long segment Bonner's esophagus,Schatzki ring,GAVE syndrome) Renal/: Yes: Renal Failure Heme/Onc: Yes: Anemia Infectious Disease: Yes: MRSA (bursitis) Psych: Yes: Addictions (marijuana,tobacco and prescription narcotics) Musculoskeletal: Yes: Chronic low back pain, Other (has spinal stimulator) Rheumatology: Yes: Vasculitis, Other (Scleroderma, Raynauds and CREST syndrome) Endocrine: Yes: Hypothyroidism, Other (Malnutrition, osteoporosis) Dermatology: Yes: Cellulitis - Past Surgical History Past Surgical History: Yes: Appendectomy, Colonoscopy, Upper Endoscopy - Smoking History Smoking history: Current every day smoker Have you smoked in the past 12 months: Yes Aproximately how many cigarettes per day: 10 If you are a former smoker, when did you quit?: 4 years ago - Alcohol/Substance Use Hx Alcohol Use: No History of Substance Use: reports: Marijuana, Prescription - Social History Usual Living Arrangement: Yes: With Parent ADL: Independent Occupation: disabled History of Recent Travel: No Home Medications - Allergies Allergies/Adverse Reactions: Allergies Allergy/AdvReac Type Severity Reaction Status Date / Time Penicillins Allergy Severe Hives Verified 12/22/16 20:08 tomato AdvReac Uncoded 12/22/16 20:08 - Home Medications Home Medications: Ambulatory Orders Duloxetine HCl [Cymbalta -] 60 mg PO DAILY #30 capsule. 03/10/15 Albuterol 0.083% Nebulizer Cinthya [Ventolin 0.083% Nebulizer Soln -] 1 amp NEB Q4H PRN #1 amp 04/11/16 Aspirin [ASA -] 81 mg PO DAILY tab.chew 04/11/16 Budesonide/Formeterol Fumarate [SYMBICORT 80/4.5mcg -] 2 puff IH BID #1 inhaler 04/11/16 Ranitidine [Zantac -] 150 mg PO DAILY 05/27/16 Gabapentin [Neurontin -] 800 mg PO TID capsule 05/28/16 Aclidinium [place] [Tudorza -] 1 puff IH DAILY inhaler 07/20/16 Lactobacillus Acidophilus [Bacid -] 1 each PO DAILY #30 capsule 07/20/16 Metoclopramide HCl [Reglan -] 10 mg PO ACHS tablet 07/20/16 Acetaminophen [Tylenol .Regular Strength -] 650 mg PO Q6H PRN #0 tablet Hydroxychloroquine So4 [Plaquenil -] 200 mg PO BID tablet 07/31/16 Pantoprazole Sodium [Protonix -] 40 mg PO BID tablet.ec 07/31/16 Cyclobenzaprine HCl [Flexeril -] 5 mg PO BID PRN #20 tablet 09/16/16 Lidocaine 5% Patch [Lidoderm -] 2 patch TP DAILY #60 patch 09/16/16 Albuterol 2.5/Ipratropium 0.5 [Duoneb -] 1 amp NEB BID amp 12/17/16 Multivitamins [Multivit ([facility] Formul[facility])] 1 tab PO DAILY tab 12/17/16 Magnesium Oxide [Mag-Ox -] 400 mg PO BID #30 tablet MDD 2 12/18/16 Potassium Chloride [K-Dur -] 20 meq PO DAILY #30 tab 12/18/16 Bisacodyl Suppository [Dulcolax Suppository -] 10 mg RC DAILY PRN #0 supp.rect 01/01/17 Cephalexin Monohydrate [Keflex -] 500 mg PO TID #15 cap 01/01/17 Metronidazole [Flagyl -] 500 mg PO TID #15 tablet 01/01/17 Polyethylene Glycol 3350 [Miralax 119 gm Btl -] 17 gm PO DAILY PRN #0 bottle Polyethylene Glycol 3350 [Miralax 255 gm Btl -] 17 gm PO DAILY bottle 01/01/17 Family Disease History - Family Disease History Family Disease History: Diabetes: Father (HCV), Heart Disease: Father, Mother, Other: Father, Brother (HIV) Review of Systems - Review of Systems Constitutional: reports: Lethargy, Loss of Appetite, Unintentional Wgt. Loss. denies: Chills, Fever Eyes: denies: Blurred Vision HENT: denies: Difficult Swallowing, Ear Pain Cardiovascular: denies: Chest Pain, Shortness of Breath Respiratory: denies: Cough, Orthopnea Gastrointestinal: reports: Bloating, Constipation, Nausea, Vomiting. denies: Abdominal Pain, Diarrhea, Rectal Bleeding, Vomiting Blood Genitourinary: denies: Dysuria, Flank Pain Musculoskeletal: denies: Back Pain, Extremity Pain Neurological: denies: Headache, Syncope Hematology/Lymphatic: denies: Easily Bruised, Excessive Bleeding Psychiatric: denies: Altered Sleep Pattern, Anxiety, Depression Physical Examination Vital Signs: Vital Signs Temperature 98.3 F 01/17/17 01:37 Pulse Rate 75 01/17/17 07:08 Respiratory Rate 18 01/17/17 07:08 Blood Pressure 110/63 01/17/17 07:08 O2 Sat by Pulse Oximetry (%) 97 01/17/17 07:08 Constitutional: Yes: Calm, [place], Cachectic, Mild Distress, Pallor Eyes: Yes: Conjunctiva Clear HENT: Yes: Atraumatic Neck: Yes: Supple Cardiovascular: Yes: Regular Rate and Rhythm Respiratory: Yes: CTA Bilaterally Gastrointestinal: Yes: Soft. No: Distention Renal/: No: CVA Tenderness - Left, CVA Tenderness - Right Musculoskeletal: No: Joint Stiffness, Joint Swelling Extremities: No: Cold, Cool Edema: No Integumentary: No: Rash, Venous Stasis Changes Neurological: Yes: WNL, Alert, Oriented ...Motor Strength: WNL Psychiatric: Yes: WNL, Alert, Oriented. No: Agitated, Suicidal Ideation Imaging - Results Chest X-ray: Report Reviewed Cat Scan: Report Reviewed Other: Report Reviewed Assessment/Plan The patient is a 51 year old female with significant past medical history of s/ p abdominal exploratory laparotomy (12/23/16), nonobstructive ashd and diastolic CHF, narcotics abuse, hyperlipidemia, COPD, asthma, scleroderma, gastroparesis, Raynaud's, multiple upper extremity digit amputations, and CREST syndrome who presents to the ED for 3 days of nausea, vomiting and lack of appetite. Patient reports she is unable to tolerate foods or liquids secondary to the nausea and vomiting. Denies abdominal pain, diarrhea, fever, chills, or diaphoresis. She also reports generalized weakness. SBO on CT scan, NGT placed in ER ARF creat 4.3 hypoNa, extreme dehydration volume contraction admit, IVF iv atb, will ask ID GI, surgery and renal eval falls decubs DVT pfx NPO pt said she used opiaes meds at home but no other drugs; I advised her to stop opiates for good, she understood prognosis poor d/w pt and staff t time 75 min
[2017-01-17] MEDS: ONDANSETRON 4 MG/2 ML VIAL IVPB PRN (09:38)
--- NOTE | 2017-01-17 10:23 | CONSULT ---
- Consultation REQUESTING PROVIDER: Chris Burns (General Surgery) CONSULT REQUEST: We have been asked to surgically evaluate this patient for abd pain, distended abd.. PCP: Eva Gonzalez HPI: Called to evaluate 51 yo female with PMHx noted below. Admitted to [facility] via ED with c/o n/v x7 days. Patient is well known to general surgery service as she was recently a patient here and had emergent exploratory laparotomy secondary to free air in her abdomen on 12/23/16. Patient states she is unable to eat/drink secondary to n/v. Admits to loss of appetite. Patient habitually uses/ abuses her narcotic pain medication (low back pain). An NGT was placed in the ER. Currently resting in position of comfort. Also c/o of feeling a generalized weakness. Denies cough, CP, palpitations, ROONEY or SOB. Denies abd pain, diarrhea , fever, chills, or diaphoresis. Denies hematuria, flank pain, melena or hematochazia. In the ER, patient had the following imaging studies: CXR: mild atelectasis/infiltrate at left lung base. NGT is in stomach CT Scan: moderately distended loops of sb throughout abd. Distal ileal loops are not dilated. Stool throughout her entire colon. PMHx: Peripheral Neuropathy, Aortic insuff (mild), Mitral insufficiency (mild), Raynaud's w/ multiple upper extremity digit amputations. Asthma, COPD, PNA, lung mass of undetermined froylan., Constipation, Diverticulosis/itis, scleroderma affecting the esophagus, Bonner's esophagus, Schatzki ring, CREST syndrome, antral ulcer, gastroparesis , GERD, PUD, Renal failure, anemia, MRSA , Chronic low back pain, Vasculitis, Hypothyroidism, Malnutrition, Diastolic CHF , osteoporosis, narcotics abuse and cellulitis PSHx: Exploratory laparotomy for free air 12/23/16, Cardiac Cath normal coronaries and EF 65% @ [facility] 03/31, Spinal Cord Stimulator, Appendectomy, Colonoscopy, Upper Endoscopy, Lumbosacral fusion, Multiple hand digital amps, Hysterectomy Smoking history: Current every day smoker Psych: Yes: Addictions (marijuana,tobacco and prescription narcotics) Home Meds: Duloxetine HCl [Cymbalta -] 60 mg PO DAILY #30 capsule. Albuterol 0.083% Nebulizer Cinthya [Ventolin 0.083% Nebulizer Soln -] 1 amp NEB Q4H PRN #1 Aspirin [ASA -] 81 mg PO DAILY tab.chew Budesonide/Formeterol Fumarate [SYMBICORT 80/4.5mcg -] 2 puff IH BID #1 inhaler Ranitidine [Zantac -] 150 mg PO DAILY Gabapentin [Neurontin -] 800 mg PO TID capsule Aclidinium [place] [Tudorza -] 1 puff IH DAILY inhaler Lactobacillus Acidophilus [Bacid -] 1 each PO DAILY #30 capsule Metoclopramide HCl [Reglan -] 10 mg PO ACHS tablet Acetaminophen [Tylenol .Regular Strength -] 650 mg PO Q6H PRN #0 tablet Hydroxychloroquine So4 [Plaquenil -] 200 mg PO BID tablet Pantoprazole Sodium [Protonix -] 40 mg PO BID tablet.ec Cyclobenzaprine HCl [Flexeril -] 5 mg PO BID PRN #20 tablet Lidocaine 5% Patch [Lidoderm -] 2 patch TP DAILY #60 patch Albuterol 2.5/Ipratropium 0.5 [Duoneb -] 1 amp NEB BID amp Multivitamins [Multivit ([facility] Formulary)] 1 tab PO DAILY tab Magnesium Oxide [Mag-Ox -] 400 mg PO BID #30 tablet MDD 2 Potassium Chloride [K-Dur -] 20 meq PO DAILY #30 tab Bisacodyl Suppository [Dulcolax Suppository -] 10 mg RC DAILY PRN #0 supp.rect Cephalexin Monohydrate [Keflex -] 500 mg PO TID #15 cap Metronidazole [Flagyl -] 500 mg PO TID #15 tablet 01/01/17 Polyethylene Glycol 3350 [Miralax 119 gm Btl -] 17 gm PO DAILY PRN #0 bottle Polyethylene Glycol 3350 [Miralax 255 gm Btl -] 17 gm PO DAILY bottle Allergies PCN --> hives Tomato --> adverse reaction ROS: CONSTITUTIONAL: Absent: SEE ABOVE. diaphoresis, malaise, weight change CARDIOVASCULAR: Absent: SEE ABOVE. syncope, irregular heart rate, lightheadedness RESPIRATORY: Absent: SEE ABOVE. stridor, hemoptysis GASTROINTESTINAL:Absent: SEE ABOVE. GENITOURINARY: SEE ABOVE. Absent: dysuria, frequency, urgency, hesitancy, hematuria, genital pain MUSCULOSKELETAL: Absent: myalgia, arthralgia, joint swelling, neck pain SKIN: Absent: rash, itching, pallor HEMATOLOGIC/IMMUNOLOGIC: Absent: easy bleeding, easy bruising, lymphadenopathy NEUROLOGIC: Absent: headache, focal weakness, paresthesias, dizziness, unsteady gait, seizure, mental status changes, PSYCHIATRIC: Absent: anxiety, depression, suicidal or homicidal ideation, hallucinations. PE: GENERAL: Awake, alert, oriented, in NAD HEAD: NC. AT. EYES: PERRL, sclera anicteric, conjunctiva clear. NECK: Normal ROM, supple without lymphadenopathy, JVD, or masses. PULM: CTA b/l anteriorly. COR: RRR ABD: Midline incision healed. Distended (protuberant for her body habitus), bowel sounds absent in all quadrants. Non-tender. No guarding, no rebound, no rigidity MUSCULOSKEL: No CVA tenderness. RECTAL: DONAVAN with hard stool in her vault UE: 2+ pulses, warm, well-perfused. No cyanosis. Cap refill <2 seconds. No peripheral edema. Multiple digital amps LE: 2+ pulses, warm, well-perfused. No calf tenderness. No peripheral edema. NEUROLOGICAL: Normal speech, gait not observed. PSYCH: Cooperative. Good eye contact. Appropriate mood and affect. Last Vital Signs Temp Pulse Resp BP Pulse Ox 98.3 F 110 H 18 96/58 95 01/17/17 01:37 01/17/17 08:20 01/17/17 08:20 01/17/17 08:20 01/17/17 08:20 CBC, BMP 01/17/17 02:45 01/17/17 02:45 Hepatic Panel Total Bilirubin 0.3 mg/dL (0.2-1.0) D 01/17/17 02:45 AST 13 U/L (15-37) L D 01/17/17 02:45 ALT 20 U/L (12-78) D 01/17/17 02:45 Alkaline Phosphatase 39 U/L (45-117) L D 01/17/17 02:45 Albumin 3.3 g/dl (3.4-5.0) L D 01/17/17 02:45 Problem List - Problems (1) Partial small bowel obstruction Assessment/Plan: 51 yo female admitted with PSBO without a zone of transition identifiable on CT Scan. She is non-toxic appearing. Resting comfortably. She has a history of narcotic abuse/dependace due to her chronic low back pain. This PSBO most likely narcotic related given that her entire colon is FOS. We recommend the followin. NPO / IVF 2. GI / DVT ppx 3. Attempt pain management with non-narcotic approach to reverse her narcotic induced ileus 4. Metoclopramide --> gastroparesis 5. OOB and ambulate 6. NGT to low wall canister suction --> monitor/record output q shift 7. Hyponatremic. Replete slowly 8. Lidocaine patch to her L/S spine 9. CBC, BMP in AM 10. No surgical intervention at this time. Continue to manage conservatively as outlined above. Surgery Team will continue to follow. 11. Above plan discussed with Dr. Burns and agrees. Code(s): K56.69 - OTHER INTESTINAL OBSTRUCTION (2) Opiate dependence Code(s): F11.20 - OPIOID DEPENDENCE, UNCOMPLICATED (3) Chronic renal failure Assessment/Plan: Monitor BUN/Cr Renal Consult Code(s): N18.9 - CHRONIC KIDNEY DISEASE, UNSPECIFIED Visit type - Case Type Case Type: ED Admission - Emergency Emergency Visit: Yes ED Registration Date: 01/17/17 Care time: The patient presented to the Emergency Department on the above date and was hospitalized for further evaluation of their emergent condition. - New patient This patient is new to me today: Yes Date on this admission: 01/17/17
[2017-01-17] MEDS ORDERED: PT OWN MED DRAWER 7, Y5N ONE (10:50)
[2017-01-17] MEDS: PANTOPRAZOLE SODIUM 100 ML IVPB SCH ×2 (11:03→23:18)
--- NOTE | 2017-01-17 13:27 | PN ---
Progress Note (short form) - Note Progress Note: ID Consult dictated Partial SBO Possible asp pneumonia Leukocytosis Acute renal failure CREST syndrome Obtain c/s Surgical, renal evaluation Empiric ceftriaxone/ flagyl
--- NOTE | 2017-01-17 13:36 | CONSULT ---
Consult Consult Specialty:: Nephrology ( Drs. Washington/ Breezy) Referred by:: Dr. Gonzalez Reason for Consultation:: Acute renal failure - History of Present Illness Chief Complaint: The patient has h/o Scleroderma, CREST syndrome, Hypothyroidism , Peripheral neuropathy, Chronic constipation, recent exploratory lap for intestinal obstruction, with no specific lesions identified, peripheral vascular disease with multiple digital amputations, peripheral neuropathy, admitted this time with nausea , vomiting. Takes many narcotic analgesics. Had not been eating or drinking adequately recently. An NG tube is placed that is draining copious bilious fluid. - History Source History Provided By: Medical Record Limitations to Obtaining History: Clinical Condition - Past Medical History PEOPLE MANAGER: Yes: Peripheral Neuropathy Cardio/Vascular: Yes: Aortic Insufficiency (mild), Mitral Insufficiency (mild), Other (Raynaud's w/ multiple upper extremity digit amputations. Normal coronaries on cardiac cath and EF 65% with mild AI, trace MR and TR on echo @ [facility] [place] Pulmonary: Yes: Asthma, COPD, Pneumonia, Other (lung mass of undetermined etiology) Gastrointestinal: Yes: Constipation, Diverticulitis, Diverticulosis (small bowel diverticular perforation, scleroderma affecting the esophagus, Bonner's esophagus, Schatzki ring,GAVE syndrome, antral ulcer, gastroparesis related to scleroderma), GERD (with long segment Bonner's esophagus and patent Schatzki ring), Peptic Ulcer Disease (antral ulcer ), Other (Bonner's esophagus, GERD, Schatzki ring, perforation of small bowel diverticulum, antral ulcer, scleroderma causing esophageal dysmotility and gastroparesis, GERD with long segment Bonner's esophagus,Schatzki ring,GAVE syndrome) Renal/: Yes: Renal Failure Infectious Disease: Yes: MRSA (bursitis) Psych: Yes: Addictions (marijuana,tobacco and prescription narcotics) Musculoskeletal: Yes: Chronic low back pain, Other (has spinal stimulator) Rheumatology: Yes: Vasculitis, Other (Scleroderma, Raynauds and CREST syndrome) Endocrine: Yes: Hypothyroidism, Other (Malnutrition, osteoporosis) Dermatology: Yes: Cellulitis - Past Surgical History Past Surgical History: Yes: Appendectomy, Colonoscopy, Upper Endoscopy - Alcohol/Substance Use Hx Alcohol Use: No History of Substance Use: reports: Marijuana, Prescription - Smoking History Smoking history: Current every day smoker Have you smoked in the past 12 months: Yes Aproximately how many cigarettes per day: 10 If you are a former smoker, when did you quit?: 4 years ago - Social History Usual Living Arrangement: With Parent ADL: Independent Occupation: disabled History of Recent Travel: No Home Medications - Allergies Allergies/Adverse Reactions: Allergies Allergy/AdvReac Type Severity Reaction Status Date / Time Penicillins Allergy Severe Hives Verified 12/22/16 20:08 tomato AdvReac Uncoded 12/22/16 20:08 - Home Medications Home Medications: Ambulatory Orders Duloxetine HCl [Cymbalta -] 60 mg PO DAILY #30 capsule. 03/10/15 Albuterol 0.083% Nebulizer Cinthya [Ventolin 0.083% Nebulizer Soln -] 1 amp NEB Q4H PRN #1 amp 04/11/16 Aspirin [ASA -] 81 mg PO DAILY tab.chew 04/11/16 Budesonide/Formeterol Fumarate [SYMBICORT 80/4.5mcg -] 2 puff IH BID #1 inhaler 04/11/16 Ranitidine [Zantac -] 150 mg PO DAILY 05/27/16 Gabapentin [Neurontin -] 800 mg PO TID capsule 05/28/16 Aclidinium [place] [Tudorza -] 1 puff IH DAILY inhaler 07/20/16 Lactobacillus Acidophilus [Bacid -] 1 each PO DAILY #30 capsule 07/20/16 Metoclopramide HCl [Reglan -] 10 mg PO ACHS tablet 07/20/16 Acetaminophen [Tylenol .Regular Strength -] 650 mg PO Q6H PRN #0 tablet Hydroxychloroquine So4 [Plaquenil -] 200 mg PO BID tablet 07/31/16 Pantoprazole Sodium [Protonix -] 40 mg PO BID tablet.ec 07/31/16 Cyclobenzaprine HCl [Flexeril -] 5 mg PO BID PRN #20 tablet 09/16/16 Lidocaine 5% Patch [Lidoderm -] 2 patch TP DAILY #60 patch 09/16/16 Albuterol 2.5/Ipratropium 0.5 [Duoneb -] 1 amp NEB BID amp 12/17/16 Multivitamins [Multivit ([facility] Formulary)] 1 tab PO DAILY tab 12/17/16 Magnesium Oxide [Mag-Ox -] 400 mg PO BID #30 tablet MDD 2 12/18/16 Potassium Chloride [K-Dur -] 20 meq PO DAILY #30 tab 12/18/16 Bisacodyl Suppository [Dulcolax Suppository -] 10 mg RC DAILY PRN #0 supp.rect 01/01/17 Cephalexin Monohydrate [Keflex -] 500 mg PO TID #15 cap 01/01/17 Metronidazole [Flagyl -] 500 mg PO TID #15 tablet 01/01/17 Polyethylene Glycol 3350 [Miralax 119 gm Btl -] 17 gm PO DAILY PRN #0 bottle Polyethylene Glycol 3350 [Miralax 255 gm Btl -] 17 gm PO DAILY bottle 01/01/17 Family Disease History - Family Disease History Family Disease History: Diabetes: Father (HCV), Heart Disease: Father, Mother, Other: Father, Brother (HIV) Review of Systems - Review of Systems Constitutional: reports: Lethargy HENT: reports: Difficult Swallowing Neck: reports: Decreased ROM Cardiovascular: reports: No Symptoms Respiratory: reports: No Symptoms Gastrointestinal: reports: Abdominal Pain, Bloating, Constipation, Nausea, Vomiting Musculoskeletal: reports: No Symptoms, Back Pain Neurological: reports: Change in LOC, Confusion, Weakness Physical Exam Vital Signs: Vital Signs Temperature 98.3 F 01/17/17 01:37 Pulse Rate 110 H 01/17/17 08:20 Respiratory Rate 18 01/17/17 08:20 Blood Pressure 96/58 01/17/17 08:20 O2 Sat by Pulse Oximetry (%) 95 01/17/17 08:20 Constitutional: Yes: Moderate Distress HENT: Yes: Atraumatic Neck: Yes: Trachea Midline Cardiovascular: Yes: Regular Rate and Rhythm, S1, S2 Respiratory: Yes: Regular Gastrointestinal: Yes: Distention, Hypoactive Bowel Sounds, Other (NG tube draining large amonts of green fluid) Renal/: Yes: Oliguria Edema: No Neurological: Yes: Confusion, Weakness Problem List - Problems (1) Chronic renal failure Code(s): N18.9 - CHRONIC KIDNEY DISEASE, UNSPECIFIED (2) Small bowel obstruction Code(s): K56.69 - OTHER INTESTINAL OBSTRUCTION (3) Abdominal distention Code(s): R14.0 - ABDOMINAL DISTENSION (GASEOUS) (4) Abdominal pain Code(s): R10.9 - UNSPECIFIED ABDOMINAL PAIN (5) Acute renal failure Code(s): N17.9 - ACUTE KIDNEY FAILURE, UNSPECIFIED (6) CREST syndrome Code(s): M34.1 - CR(E)ST SYNDROME (7) Fecal incontinence Code(s): R15.9 - FULL INCONTINENCE OF FECES (8) Hyponatremia Code(s): E87.1 - HYPO-OSMOLALITY AND HYPONATREMIA (9) Schatzki's ring Code(s): K22.2 - ESOPHAGEAL OBSTRUCTION (10) Scleroderma Code(s): M34.9 - SYSTEMIC SCLEROSIS, UNSPECIFIED (11) Valvular heart disease Code(s): I38 - ENDOCARDITIS, VALVE UNSPECIFIED (12) Vasculitis Code(s): I77.6 - ARTERITIS, UNSPECIFIED (13) Vomiting Code(s): R11.10 - VOMITING, UNSPECIFIED Assessment/Plan 51 y/o female with Scleroderma, CREST syndrome admitted with nausea and vomiting , profound Dehydration, profound azotemia, and Hyponatremia. The Acute Kidney injury seems to be due to extreme hypovolemia and Renal Hypoperfusion. The HYPONATREMIA may be multifactorial, with likely non-osmotic ADH release. But since Hypovolemic Hypotension is present, infusion of Normal Saline will continue until euvolemia is established. Will monitor the renal functions. Will get Renal imaging to r/o obstuction, even though this is quite less likely at this juncture. Thanks again. Will follow with you. Michelle Washington MD
[2017-01-17] MEDS: BUDESONIDE/FORMETEROL FUMARATE 80/4.5 mcg INHALER IH SCH ×2 (15:05→23:19)
[2017-01-17] MEDS: HEPARIN NA (PORCINE) 5,000 UNITS/ML 1ML VIAL SQ SCH ×2 (15:05→23:18)
[2017-01-17] MEDS: LIDOCAINE 5% TOPICAL PATCH TP SCH (15:05)
[2017-01-17] MEDS: METRONIDAZOLE 500 MG PREMIXED 100 ML IVPB SCH ×2 (16:48→18:21)
[2017-01-17] MEDS: DEXTROSE 5%-NORMAL SALINE 1,000 ML IV SCH (16:53)
--- NOTE | 2017-01-17 17:27 | EKG ---
Test Reason : Blood Pressure : / mmHG Vent. Rate : 105 BPM Atrial Rate : 105 BPM P-R Int : 146 ms QRS Dur : 072 ms QT Int : 384 ms P-R-T Axes : 056 071 -39 degrees QTc Int : 507 ms SINUS TACHYCARDIA NONSPECIFIC T WAVE ABNORMALITY ABNORMAL ECG WHEN COMPARED WITH ECG OF 12-DEC-2016 21:12, NONSPECIFIC T WAVE ABNORMALITY, WORSE IN INFERIOR LEADS T WAVE INVERSION NOW EVIDENT IN ANTEROLATERAL LEADS Confirmed by GILLIAN CAVAZOS, OSMANY ([id number]) on 01/17/2017 5:26:41 PM Referred By: Confirmed By:OSMANY FRENCH MD
[2017-01-17 17:30] VITALS: BMI 15.3
[2017-01-17] MEDS: CEFTRIAXONE 50 ML IVPB SCH (18:21)
--- NOTE | 2017-01-17 20:29 | CONS ---
DATE OF CONSULTATION: 01/17/2017 The patient is a 51-year-old female who is evaluated for possible aspiration and sepsis. History was obtained from the chart as she cannot give a history secondary to her lethargy. The patient has a history of scleroderma and CREST syndrome. She had presented to the hospital in December with abdominal pain. She was found to have air in the wall of the stomach and small intestine. The patient was taken to the operating room on December 23, 2016, for an exploratory laparotomy. At that time, no bowel perforation was found. She was felt to have pneumatosis secondary to her diagnosis of scleroderma. The patient was treated with a course of IV antibiotic therapy and was ultimately discharged home on January 01, 2017, after being able to tolerate a regular diet and having regular bowel movements. She now returns with 7-day history of anorexia, nausea and vomiting. She presented to the emergency room, where a CAT scan of the abdomen and pelvis was consistent with partial small-bowel obstruction. Her course has now been complicated with elevated white blood cell count of 11.7. Concern was expressed over the possibility of aspiration pneumonia secondary to vomiting and partial bowel obstruction. She is lethargic but arousable. She offers no focal complaints. She has an NG tube in place, which is draining bilious fluid. Past medical history positive for CREST syndrome, scleroderma, COPD with recurrent exacerbation and pneumonia, coronary artery disease, congestive heart failure, hyperlipidemia. PAST SURGICAL HISTORY: Status post appendectomy. Allergy to PENICILLIN. The patient has tolerated cephalosporins in the past. MEDICATIONS: Plaquenil, Cymbalta, aspirin, Symbicort, Zantac, Neurontin, Bacid. SOCIAL HISTORY: Positive for tobacco and narcotic use. SYSTEMS REVIEW: Neurologic: No loss of consciousness, seizure activity, focal weakness. Cardiac: Negative chest pain or palpitations. Respiratory: No reported dyspnea or cough. Gastrointestinal: As per HPI. Genitourinary: Negative for urinary tract infection. LABORATORY DATA: White count 11.7, neutrophils 75, lymphocytes 11, monocytes 12, hematocrit 36.2, platelet count 493. BUN 53, creatinine 4.3, sodium 125, total bilirubin 0.3, alkaline phosphatase 39, AST 13. Chest x-ray negative for acute infiltrate. PHYSICAL EXAMINATION: General: She is lethargic. She is arousable. Vital Signs: Temperature 98.3. Blood pressure 96/58. Pulse 110, regular. Respirations 18 per minute. Eyes: Sclerae anicteric. Heart Sounds: S1, S2. Lungs: Diminished breath sounds bilaterally. Abdomen: Soft. It is slightly distended. There is a healed midline surgical wound. The abdomen is soft. Hypoactive bowel sounds. Extremities: Negative for edema. IMPRESSION: 1. Partial small-bowel obstruction. 2. Possible aspiration secondary to vomiting. 3. Acute renal failure. 4. Leukocytosis. 5. History of CREST syndrome (calcinosis, Raynaud phenomenon, esophageal dysmotility, sclerodactyly, and telangiectasia). I will obtain blood cultures; empiric antibiotic coverage in this PENICILLIN allergic patient with ceftriaxone and Flagyl; surgical evaluation and followup. Further recommendations pending cultures. Will follow. Thank you for the kind referral. SHELBY FRANK M.D. [place]ARL/[id number]
--- NOTE | 2017-01-17 21:19 | CONS ---
DATE OF CONSULTATION: 01/17/2017 REQUESTING PHYSICIAN: Eva Gonzalez MD The patient is a 51-year-old female, well known to my colleague, Dr. Sonny Leon, presenting with nausea and vomiting for approximately 5 to 7 days. Imaging study revealed distended small bowel to the ileum, and the distal ileum appeared to be decompressed. The possibility of a partial small-bowel obstruction was raised. She was admitted last month for a similar complaint of nausea and vomiting and abdominal pain. Imaging at that time revealed pneumoperitoneum and she underwent laparoscopy that failed to reveal small bowel pathology. She has had similar episodes in the past, which resolved with conservative measures and was felt to be due to a small-bowel diverticulum associated with her scleroderma. She does suffer with gastroparesis and gaseous retention that is aggravated by her chronic narcotic usage. Past medical history includes aortic insufficiency; mitral insufficiency; Raynaud's; multiple upper extremity digit amputations; normal coronaries on cardiac catheterization; and EF of 65% with mild AI, trace MR, trace TR, on echo at [facility] March 31; asthma; COPD; pneumonia; lung mass of undetermined etiology; history of constipation; diverticulitis in the past; diverticulosis with small-bowel diverticular perforation; scleroderma affecting the esophagus, also has a history of Bonner esophagus, Schatzki's ring, GAVE syndrome, antral ulcer, gastroparesis related to her scleroderma; as above, she does have scleroderma; she has GERD with long-segment Bonner esophagus and a patent Schatzki's ring; peptic ulcer disease in the past and history of antral ulcer; esophageal dysmotility; history of renal failure; history of MRSA bursitis; she does have addictions to marijuana, tobacco, and prescription narcotics; she has a history of chronic low back pain and has a spinal stimulator; history of vasculitis; scleroderma with Raynaud's and CREST syndrome; hypothyroidism; and a history of cellulitis, as above. Past surgical history includes appendectomy, colonoscopy, upper endoscopy, exploratory laparotomy December 23, 2016, with no findings. SOCIAL HISTORY: She does smoke tobacco and she does smoke marijuana. She lives with her mother. She is disabled. No history of recent travel. She has allergies to PENICILLIN and TOMATO. Medications prior to admission include Cymbalta, aspirin 81 mg once daily, Symbicort, Ventolin, Zantac, Neurontin, Bacid, Reglan, Tudorza, Plaquenil, Protonix, Tylenol, Lidoderm patch, Flexeril, DuoNeb, multivitamin, magnesium oxide, K-Dur, Dulcolax suppository, Flagyl, MiraLax, and Keflex. REVIEW OF SYSTEMS: Nausea has improved and there is no further vomiting. No rectal bleeding. She does complain of constipation. No chest pain or shortness of breath. PHYSICAL EXAMINATION: General: The patient is found lying in her stretcher. She appeared to be in no apparent distress. Vital Signs: Temperature was 97.5, pulse 102, blood pressure 100/58. Sclerae: Anicteric. Neck: Supple. Heart: Tachycardic rate with a regular rhythm. No murmurs are appreciated. Lungs: Clear to auscultation bilaterally. Abdomen: Soft. She did have a healed vertical midabdominal incision. She had normoactive bowel sounds. No hepatosplenomegaly is appreciated. No masses are palpated. No hernias detected. No tenderness is elicited. Extremities: No lower extremity edema. LABORATORY EVALUATION: White blood count 11.7, hemoglobin 11.8, hematocrit 36.2, platelets of 493, INR 1.20. Sodium 128, potassium 4.0, chloride of 88, BUN 57, creatinine 4.3, glucose 150, AST of 13, ALT of 20, alkaline phosphatase of 39, total bilirubin 0.3, with an albumin of 3.3, lipase of 70. RADIOLOGY REPORTS: As noted in the history of present illness. IMPRESSION: A 51-year-old female with multiple medical problems, history of scleroderma, now with distended loops of bowel, possibly reflecting a partial small-bowel obstruction, however, given her underlying scleroderma, the possibility of a pseudo-obstruction involving her small bowel from her scleroderma may need to be considered, as well as ileus being potentiated by her chronic opiate use. For now she is being treated conservatively with NG tube decompression. Would obtain an x-ray in the morning. Surgery is following. Taper off opiates as feasible. Other recommendations pending the patient's clinical course. I thank you for this consultative opportunity. DONNELL GROSS DO CD/[id number]
[2017-01-17 21:47] LABS: CALCIUM 7.7 mg/dL (8.5-10.1); COCKROFT - GAULT 8.636; CREATININE 4.8 mg/dL (0.55-1.02)
[2017-01-17] MEDS: ALBUTEROL SO4 2.5/IPRATROPIUM 0.5 INH SOL 3 ML VIAL.NEB. NEB SCH (23:05)
[2017-01-18 00:29] LABS: URINE MARIJUANA THC NEGATIVE ng/ml (CUTOFF=50)
[2017-01-18] MEDS: DEXTROSE 5%-NORMAL SALINE 1,000 ML IV SCH ×2 (02:47→22:01)
[2017-01-18] MEDS: METRONIDAZOLE 500 MG PREMIXED 100 ML IVPB SCH ×2 (02:47→11:08)
[2017-01-18 07:59] LABS: CALCIUM 7.9 mg/dL (8.5-10.1)
[2017-01-18 08:06] LABS: BASOPHIL 0.1 % (0-2.0); EOSINOPHIL 0.6 % (0-4.5); MCH 26.4 pg (25.7-33.7); MCHC 33.1 g/dl (32.0-36.0); MEAN CELL VOLUME 79.7 fl (80-96); MEAN PLT VOLUME 9.5 fl (7.5-11.1); PLATELET COUNT 393 K/MM3 (134-434); RDW 19.4 % (11.6-15.6); WHITE BLOOD COUNT 6.3 K/mm3 (4.0-10.0)
--- NOTE | 2017-01-18 08:09 | PN ---
Progress Note (short form) - Note Progress Note: Hospital day #2 Resting comfortably without complaint. NGT remains on continuous suction. Denies f/atus/bm, n/v/f/c, CP or SOB. Last Vital Signs Temp Pulse Resp BP Pulse Ox 97.6 F 72 20 85/61 94 L 01/18/17 06:00 01/18/17 06:00 01/18/17 06:00 01/18/17 06:00 01/17/17 23:30 Gen: alert. nad Abd: significantly improved compared to initial exam. less distended. No tenderness to superficial or deep palpation. Bowel sounds hypoactive. Problem List - Problems (1) Partial small bowel obstruction Assessment/Plan: Cont NGT decompression. NPO / IVF GI / DVT ppx OOB to chair Awaiting bowel function to resume before starting liquid diet Non-narcotic pain management Code(s): K56.69 - OTHER INTESTINAL OBSTRUCTION (2) Opiate dependence Code(s): F11.20 - OPIOID DEPENDENCE, UNCOMPLICATED (3) Chronic renal failure Assessment/Plan: Renal Consult note appreciated. Cont to monitor BUN/Cr Code(s): N18.9 - CHRONIC KIDNEY DISEASE, UNSPECIFIED
[2017-01-18 08:14] LABS: BILIRUBIN,TOTAL 0.5 mg/dL (0.2-1.0); COCKROFT - GAULT 12.189; CREATININE 3.4 mg/dL (0.55-1.02); PHOSPHOROUS 8.7 mg/dL (2.5-4.9); THYROID STIMULATING HORMONE 1.04 uIU/ml (0.358-3.74); TOT PROT 7.7 g/dl (6.4-8.2); URIC ACID 10.8 mg/dL (2.6-7.2)
--- NOTE | 2017-01-18 08:19 | PN ---
Progress Note, Physician Chief Complaint: on IVF creat still over 4; feels generally weak and tired; NGT in no abdominal pain - Current Medication List Current Medications: Active Medications Albuterol Sulfate (Ventolin 0.083% Nebulizer Soln -) 1 amp NEB Q4H PRN PRN Reason: SHORT OF BREATH/WHEEZING Albuterol/Ipratropium (Duoneb -) 1 amp NEB BID [facility] Last Admin: 01/17/17 23:05 Dose: Not Given Bisacodyl (Dulcolax Suppository -) 10 mg RC DAILY PRN PRN Reason: CONSTIPATION Budesonide/Formoterol Fumarate (Symbicort 80/4.5mcg -) 2 puff IH BID [facility] Last Admin: 01/17/17 23:19 Dose: Not Given Heparin Sodium (Porcine) (Heparin -) 5,000 unit SQ BID [facility] Last Admin: 01/17/17 23:18 Dose: 5,000 unit Pantoprazole Sodium (Protonix 40mg Ivpb (Pre-Docked)) 100 mls @ 200 mls/hr IVPB BID [facility] Last Admin: 01/17/17 23:18 Dose: 200 mls/hr Ceftriaxone Sodium (Rocephin 1gm Ivpb (Pre-Docked)) 50 mls @ 100 mls/hr IVPB DAILY [facility] Last Admin: 01/17/17 18:21 Dose: 100 mls/hr Metronidazole (Flagyl 500mg Premixed Ivpb -) 100 mls @ 100 mls/hr IVPB Q8H-IV [facility] Last Admin: 01/18/17 02:47 Dose: 100 mls/hr Dextrose/Sodium Chloride (D5-Ns -) 1,000 mls @ 125 mls/hr IV ASDIR [facility] Last Admin: 01/18/17 02:47 Dose: 125 mls/hr Lidocaine (Lidoderm Patch -) 2 patch TP DAILY [facility] Last Admin: 01/17/17 15:05 Dose: Not Given Ondansetron HCl (Zofran Injection) 8 mg IVPB Q8H PRN PRN Reason: NAUSEA Last Admin: 01/17/17 09:38 Dose: 8 mg - Objective Vital Signs: Vital Signs Temperature 97.6 F 01/18/17 06:00 Pulse Rate 72 01/18/17 06:00 Respiratory Rate 20 01/18/17 06:00 Blood Pressure 85/61 01/18/17 06:00 O2 Sat by Pulse Oximetry (%) 94 L 01/17/17 23:30 Constitutional: Yes: No Distress, [place], Cachectic Eyes: Yes: Conjunctiva Clear HENT: Yes: Atraumatic Neck: Yes: Supple Cardiovascular: Yes: Regular Rate and Rhythm Respiratory: Yes: CTA Bilaterally Gastrointestinal: Yes: Soft. No: Distention, Tenderness Genitourinary: No: CVA Tenderness - Left, CVA Tenderness - Right Musculoskeletal: No: Joint Stiffness, Joint Swelling Extremities: No: Cold, Cool Edema: No Peripheral Pulses WNL: Yes Integumentary: No: Rash, Venous Stasis Changes Neurological: Yes: WNL, Alert, Oriented ...Motor Strength: WNL Psychiatric: Yes: WNL, Alert, Oriented. No: Agitated - ....Imaging Other: Report Reviewed Assessment/Plan The patient is a 51 year old female with significant past medical history of s/ p abdominal exploratory laparotomy (12/23/16), nonobstructive ashd and diastolic CHF, narcotics abuse, hyperlipidemia, COPD, asthma, scleroderma, gastroparesis, Raynaud's, multiple upper extremity digit amputations, and CREST syndrome who presents to the ED for 3 days of nausea, vomiting and lack of appetite. Patient reports she is unable to tolerate foods or liquids secondary to the nausea and vomiting. Denies abdominal pain, diarrhea, fever, chills, or diaphoresis. She also reports generalized weakness. SBO on CT scan, NGT placed in ER ARF creat 4.7 hypoNa, extreme dehydration volume contraction admitted, IVF iv atb, per ID GI, surgery and renal f/u falls decubs DVT pfx NPO; NGT f/u labs, cx pt said she used opiates meds at home but no other drugs; tox screen confirmed it; I advised her to stop opiates for good, she understood prognosis poor d/w pt and staff t time 35 min
[2017-01-18] MEDS: ALBUTEROL SO4 2.5/IPRATROPIUM 0.5 INH SOL 3 ML VIAL.NEB. NEB SCH ×2 (10:00→22:07)
[2017-01-18] MEDS: CEFTRIAXONE 50 ML IVPB SCH (11:07)
[2017-01-18] MEDS: LIDOCAINE 5% TOPICAL PATCH TP SCH (11:08)
[2017-01-18] MEDS: HEPARIN NA (PORCINE) 5,000 UNITS/ML 1ML VIAL SQ SCH ×2 (11:08→22:02)
[2017-01-18] MEDS: BUDESONIDE/FORMETEROL FUMARATE 80/4.5 mcg INHALER IH SCH ×2 (11:09→22:18)
[2017-01-18] MEDS: PANTOPRAZOLE SODIUM 100 ML IVPB SCH ×2 (11:09→22:03)
--- NOTE | 2017-01-18 12:04 | PN ---
Progress Note, Physician History of Present Illness: Awake and alert OOB in chair No c/o abdominal pain + flatus No BM No fever/ chills WBC improved- WNL - Current Medication List Current Medications: Active Medications Albuterol Sulfate (Ventolin 0.083% Nebulizer Soln -) 1 amp NEB Q4H PRN PRN Reason: SHORT OF BREATH/WHEEZING Albuterol/Ipratropium (Duoneb -) 1 amp NEB BID [facility] Last Admin: 01/18/17 10:00 Dose: 1 amp Bisacodyl (Dulcolax Suppository -) 10 mg RC DAILY PRN PRN Reason: CONSTIPATION Budesonide/Formoterol Fumarate (Symbicort 80/4.5mcg -) 2 puff IH BID [facility] Last Admin: 01/18/17 11:09 Dose: 2 puff Heparin Sodium (Porcine) (Heparin -) 5,000 unit SQ BID [facility] Last Admin: 01/18/17 11:08 Dose: 5,000 unit Pantoprazole Sodium (Protonix 40mg Ivpb (Pre-Docked)) 100 mls @ 200 mls/hr IVPB BID [facility] Last Admin: 01/18/17 11:09 Dose: 200 mls/hr Ceftriaxone Sodium (Rocephin 1gm Ivpb (Pre-Docked)) 50 mls @ 100 mls/hr IVPB DAILY [facility] Last Admin: 01/18/17 11:07 Dose: 100 mls/hr Metronidazole (Flagyl 500mg Premixed Ivpb -) 100 mls @ 100 mls/hr IVPB Q8H-IV [facility] Last Admin: 01/18/17 11:08 Dose: 100 mls/hr Dextrose/Sodium Chloride (D5-Ns -) 1,000 mls @ 125 mls/hr IV ASDIR [facility] Last Admin: 01/18/17 02:47 Dose: 125 mls/hr Lidocaine (Lidoderm Patch -) 2 patch TP DAILY [facility] Last Admin: 01/18/17 11:08 Dose: 2 patch Ondansetron HCl (Zofran Injection) 8 mg IVPB Q8H PRN PRN Reason: NAUSEA Last Admin: 01/17/17 09:38 Dose: 8 mg - Objective Vital Signs: Vital Signs Temperature 97.6 F 01/18/17 06:00 Pulse Rate 72 01/18/17 06:00 Respiratory Rate 20 01/18/17 06:00 Blood Pressure 85/61 01/18/17 06:00 O2 Sat by Pulse Oximetry (%) 94 L 01/17/17 23:30 Constitutional: Yes: No Distress, Cachectic Eyes: Yes: Conjunctiva Clear Cardiovascular: Yes: Regular Rate and Rhythm, S1, S2 Respiratory: Yes: CTA Bilaterally Gastrointestinal: Yes: Normal Bowel Sounds, Soft, Other (sl distended). No: Tenderness Edema: No Labs: CBC, BMP 01/18/17 05:35 01/18/17 05:35 Assessment/Plan Partial SBO Leukocytosis- resolved Possible aspiration Continue empiric ceftriaxone/ flagyl Check cultures
[2017-01-18 14:22] LABS: BASOPHIL 0.3 % (0-2.0); MCH 25.7 pg (25.7-33.7); MCHC 31.8 g/dl (32.0-36.0); MEAN CELL VOLUME 80.8 fl (80-96); MEAN PLT VOLUME 9.6 fl (7.5-11.1); NEUTROPHILS 63.1 % (42.8-82.8); PLATELET COUNT 400 K/MM3 (134-434); RDW 18.8 % (11.6-15.6); WHITE BLOOD COUNT 7.6 K/mm3 (4.0-10.0)
--- NOTE | 2017-01-18 22:01 | PN ---
Progress Note (short form) - Note Progress Note: scleroderma/crest hypothyroidism/raynaud syndrome sbo volume overload dehydration/ s creat 4.5 hyponatremia Current Medications Albuterol Sulfate (Ventolin 0.083% Nebulizer Soln -) 1 amp NEB Q4H PRN PRN Reason: SHORT OF BREATH/WHEEZING Albuterol/Ipratropium (Duoneb -) 1 amp NEB BID [facility] Last Admin: 01/18/17 10:00 Dose: 1 amp Bisacodyl (Dulcolax Suppository -) 10 mg RC DAILY PRN PRN Reason: CONSTIPATION Budesonide/Formoterol Fumarate (Symbicort 80/4.5mcg -) 2 puff IH BID [facility] Last Admin: 01/18/17 11:09 Dose: 2 puff Heparin Sodium (Porcine) (Heparin -) 5,000 unit SQ BID [facility] Last Admin: 01/18/17 11:08 Dose: 5,000 unit Pantoprazole Sodium (Protonix 40mg Ivpb (Pre-Docked)) 100 mls @ 200 mls/hr IVPB BID [facility] Last Admin: 01/18/17 11:09 Dose: 200 mls/hr Ceftriaxone Sodium (Rocephin 1gm Ivpb (Pre-Docked)) 50 mls @ 100 mls/hr IVPB DAILY [facility] Last Admin: 01/18/17 11:07 Dose: 100 mls/hr Metronidazole (Flagyl 500mg Premixed Ivpb -) 100 mls @ 100 mls/hr IVPB Q8H-IV [facility] Last Admin: 01/18/17 11:08 Dose: 100 mls/hr Dextrose/Sodium Chloride (D5-Ns -) 1,000 mls @ 125 mls/hr IV ASDIR [facility] Last Admin: 01/18/17 02:47 Dose: 125 mls/hr Lidocaine (Lidoderm Patch -) 2 patch TP DAILY [facility] Last Admin: 01/18/17 11:08 Dose: 2 patch Ondansetron HCl (Zofran Injection) 8 mg IVPB Q8H PRN PRN Reason: NAUSEA Last Admin: 01/17/17 09:38 Dose: 8 mg Intake & Output 01/15/17 01/16/17 01/17/17 01/18/17 23:59 23:59 23:59 23:59 Intake Total 750 Output Total 2250 2750 Balance -1500 -2750 Weight 100 lb 88 lb Last Vital Signs Temp Pulse Resp BP Pulse Ox 98.7 F 83 20 90/62 96 01/18/17 20:56 01/18/17 20:56 01/18/17 20:56 01/18/17 20:56 01/18/17 20:56 alert in nad lungs clear heart reg rate and rhythm abd soft nontender CBC, BMP 01/18/17 13:25 01/18/17 05:35 A/P- PRASHANT/Prerenal azotemia non-oliguric renal function improving hyponatremia also improving Plan- continue I and O continue hydration follow BMP
[2017-01-19] MEDS: METRONIDAZOLE 500 MG PREMIXED 100 ML IVPB SCH ×4 (02:30→17:04)
[2017-01-19] MEDS: DEXTROSE 5%-NORMAL SALINE 1,000 ML IV SCH ×2 (06:12→11:15)
[2017-01-19 07:36] LABS: BASOPHIL 0.4 % (0-2.0); EOSINOPHIL 1.3 % (0-4.5); MCH 26.4 pg (25.7-33.7); MEAN PLT VOLUME 9.2 fl (7.5-11.1); NEUTROPHILS 59.9 % (42.8-82.8); PLATELET COUNT 339 K/MM3 (134-434); RDW 18.6 % (11.6-15.6); WHITE BLOOD COUNT 5.9 K/mm3 (4.0-10.0)
[2017-01-19 08:01] LABS: ALBUMIN 2.5 g/dl (3.4-5.0); CALCIUM 8.5 mg/dL (8.5-10.1)
[2017-01-19 08:03] LABS: BILIRUBIN,TOTAL 0.2 mg/dL (0.2-1.0); COCKROFT - GAULT 41.463; TOT PROT 6.7 g/dl (6.4-8.2)
--- NOTE | 2017-01-19 09:13 | PN ---
Progress Note, Physician History of Present Illness: Pulled out NGT No c/o abdominal pain No N/V No BM/ flatus Afebrile WBC WNL Renal function improved - Current Medication List Current Medications: Active Medications Albuterol Sulfate (Ventolin 0.083% Nebulizer Soln -) 1 amp NEB Q4H PRN PRN Reason: SHORT OF BREATH/WHEEZING Albuterol/Ipratropium (Duoneb -) 1 amp NEB BID [facility] Last Admin: 01/18/17 22:07 Dose: 1 amp Bisacodyl (Dulcolax Suppository -) 10 mg RC DAILY PRN PRN Reason: CONSTIPATION Budesonide/Formoterol Fumarate (Symbicort 80/4.5mcg -) 2 puff IH BID [facility] Last Admin: 01/18/17 22:18 Dose: 2 puff Heparin Sodium (Porcine) (Heparin -) 5,000 unit SQ BID [facility] Last Admin: 01/18/17 22:02 Dose: 5,000 unit Pantoprazole Sodium (Protonix 40mg Ivpb (Pre-Docked)) 100 mls @ 200 mls/hr IVPB BID [facility] Last Admin: 01/18/17 22:03 Dose: 200 mls/hr Ceftriaxone Sodium (Rocephin 1gm Ivpb (Pre-Docked)) 50 mls @ 100 mls/hr IVPB DAILY [facility] Last Admin: 01/18/17 11:07 Dose: 100 mls/hr Metronidazole (Flagyl 500mg Premixed Ivpb -) 100 mls @ 100 mls/hr IVPB Q8H-IV [facility] Last Admin: 01/19/17 08:21 Dose: Not Given Dextrose/Sodium Chloride (D5-Ns -) 1,000 mls @ 125 mls/hr IV ASDIR [facility] Last Admin: 01/19/17 06:12 Dose: 125 mls/hr Lidocaine (Lidoderm Patch -) 2 patch TP DAILY [facility] Last Admin: 01/18/17 11:08 Dose: 2 patch Ondansetron HCl (Zofran Injection) 8 mg IVPB Q8H PRN PRN Reason: NAUSEA Last Admin: 01/17/17 09:38 Dose: 8 mg - Objective Vital Signs: Vital Signs Temperature 98 F 01/19/17 06:00 Pulse Rate 69 01/19/17 06:00 Respiratory Rate 20 01/19/17 06:00 Blood Pressure 90/61 01/19/17 06:00 O2 Sat by Pulse Oximetry (%) 96 01/18/17 20:56 Constitutional: Yes: No Distress Eyes: Yes: Conjunctiva Clear Cardiovascular: Yes: Regular Rate and Rhythm, S1, S2 Respiratory: Yes: Diminished Gastrointestinal: Yes: Normal Bowel Sounds, Soft, Abdomen, Obese. No: Tenderness Edema: No Labs: CBC, BMP 01/19/17 06:00 01/19/17 06:00 Assessment/Plan Partial SBO Leukocytosis- resolved Possible aspiration Azotemia- resolved Continue empiric ceftriaxone/ flagyl x 24h
[2017-01-19] MEDS: CEFTRIAXONE 50 ML IVPB SCH (09:14)
[2017-01-19] MEDS ORDERED: POTASSIUM CHLORIDE TABS 20 MEQ TABLET.ER (FP) PO ONE (09:30)
[2017-01-19] MEDS: PANTOPRAZOLE SODIUM 100 ML IVPB SCH ×2 (10:09→22:30)
[2017-01-19] MEDS: ALBUTEROL SO4 2.5/IPRATROPIUM 0.5 INH SOL 3 ML VIAL.NEB. NEB SCH ×2 (10:32→21:44)
[2017-01-19] MEDS: HEPARIN NA (PORCINE) 5,000 UNITS/ML 1ML VIAL SQ SCH ×2 (11:13→22:29)
[2017-01-19] MEDS: LIDOCAINE 5% TOPICAL PATCH TP SCH (11:14)
[2017-01-19] MEDS: BUDESONIDE/FORMETEROL FUMARATE 80/4.5 mcg INHALER IH SCH ×2 (11:15→22:30)
--- NOTE | 2017-01-19 11:41 | PN ---
Progress Note (short form) - Note Progress Note: Attending Surgeon NGT came out ? No c/o; passing flatus and had BM VSS AF abdomen-soft; incision c/d/i; slightly distended but not tympanitic; o/w negative IMP: improved PLAN: Started on clear liquid diet; advance as tolerated. Chris Burns MD FACS
[2017-01-19] MEDS: KCL 10 MEQ IVPB 100 ML IVPB SCH ×3 (12:52→15:20)
--- NOTE | 2017-01-19 15:08 | PN ---
Progress Note, Physician History of Present Illness: Pt. tolearated clear fluid, no N, no V, no abd pain. Pt w/o fever, cough, SOB, CP - Current Medication List Current Medications: Active Medications Albuterol Sulfate (Ventolin 0.083% Nebulizer Soln -) 1 amp NEB Q4H PRN PRN Reason: SHORT OF BREATH/WHEEZING Albuterol/Ipratropium (Duoneb -) 1 amp NEB BID [facility] Last Admin: 01/19/17 10:32 Dose: 1 amp Bisacodyl (Dulcolax Suppository -) 10 mg RC DAILY PRN PRN Reason: CONSTIPATION Budesonide/Formoterol Fumarate (Symbicort 80/4.5mcg -) 2 puff IH BID [facility] Last Admin: 01/19/17 11:15 Dose: 2 puff Heparin Sodium (Porcine) (Heparin -) 5,000 unit SQ BID [facility] Last Admin: 01/19/17 11:13 Dose: 5,000 unit Pantoprazole Sodium (Protonix 40mg Ivpb (Pre-Docked)) 100 mls @ 200 mls/hr IVPB BID [facility] Last Admin: 01/19/17 10:09 Dose: 200 mls/hr Ceftriaxone Sodium (Rocephin 1gm Ivpb (Pre-Docked)) 50 mls @ 100 mls/hr IVPB DAILY [facility] Last Admin: 01/19/17 09:14 Dose: 100 mls/hr Metronidazole (Flagyl 500mg Premixed Ivpb -) 100 mls @ 100 mls/hr IVPB Q8H-IV [facility] Last Admin: 01/19/17 11:10 Dose: 100 mls/hr Dextrose/Sodium Chloride (D5-Ns -) 1,000 mls @ 50 mls/hr IV ASDIR [facility] Last Admin: 01/19/17 11:15 Dose: 50 mls/hr Lidocaine (Lidoderm Patch -) 2 patch TP DAILY [facility] Last Admin: 01/19/17 11:14 Dose: 2 patch Ondansetron HCl (Zofran Injection) 8 mg IVPB Q8H PRN PRN Reason: NAUSEA Last Admin: 01/17/17 09:38 Dose: 8 mg - Objective Vital Signs: Vital Signs Temperature 98.1 F 01/19/17 15:02 Pulse Rate 97 H 01/19/17 15:02 Respiratory Rate 20 01/19/17 15:02 Blood Pressure 97/57 01/19/17 15:02 O2 Sat by Pulse Oximetry (%) 96 01/18/17 20:56 Constitutional: Yes: No Distress, Calm Cardiovascular: Yes: Regular Rate and Rhythm, S1, S2 Respiratory: Yes: Regular, CTA Bilaterally, [place] Gastrointestinal: Yes: Normal Bowel Sounds, Soft. No: Tenderness Edema: No Neurological: Yes: Alert, Oriented Labs: CBC, BMP 01/19/17 06:00 01/19/17 06:00 Problem List - Problems (1) PRASHANT (acute kidney injury) Assessment/Plan: sercondary to volume contractin, secondary to vomiting Improved on IVF Code(s): N17.9 - ACUTE KIDNEY FAILURE, UNSPECIFIED (2) Small bowel obstruction Assessment/Plan: s/p NGT started on clear fluids; tolerating well To f/u with Sx. Code(s): K56.69 - OTHER INTESTINAL OBSTRUCTION (3) COPD (chronic obstructive pulmonary disease) Code(s): J44.9 - CHRONIC OBSTRUCTIVE PULMONARY DISEASE, UNSPECIFIED (4) CREST syndrome Code(s): M34.1 - CR(E)ST SYNDROME (5) Coronary artery disease Code(s): I25.10 - ATHSCL HEART DISEASE OF [place] CORONARY ARTERY W/O ANG PCTRS (6) Vomiting Code(s): R11.10 - VOMITING, UNSPECIFIED (7) CHF (congestive heart failure) Code(s): I50.9 - HEART FAILURE, UNSPECIFIED (8) Cellulitis Code(s): L03.90 - CELLULITIS, UNSPECIFIED Qualifiers: Site of cellulitis: extremity Site of cellulitis of extremity: lower extremity Laterality: left Qualified Code(s): L03.116 - Cellulitis of left lower limb (9) Hypokalemia Assessment/Plan: replete K. f/u level Code(s): E87.6 - HYPOKALEMIA Assessment/Plan cont. current treatment AM labs
--- NOTE | 2017-01-19 16:46 | PN ---
Progress Note (short form) - Note Progress Note: Current Medications Albuterol Sulfate (Ventolin 0.083% Nebulizer Soln -) 1 amp NEB Q4H PRN PRN Reason: SHORT OF BREATH/WHEEZING Albuterol/Ipratropium (Duoneb -) 1 amp NEB BID [facility] Last Admin: 01/19/17 10:32 Dose: 1 amp Bisacodyl (Dulcolax Suppository -) 10 mg RC DAILY PRN PRN Reason: CONSTIPATION Budesonide/Formoterol Fumarate (Symbicort 80/4.5mcg -) 2 puff IH BID [facility] Last Admin: 01/19/17 11:15 Dose: 2 puff Heparin Sodium (Porcine) (Heparin -) 5,000 unit SQ BID [facility] Last Admin: 01/19/17 11:13 Dose: 5,000 unit Pantoprazole Sodium (Protonix 40mg Ivpb (Pre-Docked)) 100 mls @ 200 mls/hr IVPB BID [facility] Last Admin: 01/19/17 10:09 Dose: 200 mls/hr Ceftriaxone Sodium (Rocephin 1gm Ivpb (Pre-Docked)) 50 mls @ 100 mls/hr IVPB DAILY [facility] Last Admin: 01/19/17 09:14 Dose: 100 mls/hr Metronidazole (Flagyl 500mg Premixed Ivpb -) 100 mls @ 100 mls/hr IVPB Q8H-IV [facility] Last Admin: 01/19/17 11:10 Dose: 100 mls/hr Dextrose/Sodium Chloride (D5-Ns -) 1,000 mls @ 50 mls/hr IV ASDIR [facility] Last Admin: 01/19/17 11:15 Dose: 50 mls/hr Lidocaine (Lidoderm Patch -) 2 patch TP DAILY [facility] Last Admin: 01/19/17 11:14 Dose: 2 patch Ondansetron HCl (Zofran Injection) 8 mg IVPB Q8H PRN PRN Reason: NAUSEA Last Admin: 01/17/17 09:38 Dose: 8 mg Last Vital Signs Temp Pulse Resp BP Pulse Ox 98.1 F 97 H 20 97/57 98 01/19/17 15:02 01/19/17 15:02 01/19/17 15:02 01/19/17 15:02 01/19/17 09:00 CBC, BMP 01/19/17 06:00 01/19/17 06:00 imp- scleroderma/crest valvular heart dicosme s/p la nena
[2017-01-20] MEDS: ONDANSETRON 4 MG/2 ML VIAL IVPB PRN ×2 (00:17→20:08)
[2017-01-20] MEDS: METRONIDAZOLE 500 MG PREMIXED 100 ML IVPB SCH ×3 (01:44→18:13)
[2017-01-20 08:02] LABS: MCH 26.8 pg (25.7-33.7); MCHC 32.8 g/dl (32.0-36.0); MEAN CELL VOLUME 81.5 fl (80-96); MEAN PLT VOLUME 9.5 fl (7.5-11.1); PLATELET COUNT 351 K/MM3 (134-434); RDW 19.5 % (11.6-15.6); WHITE BLOOD COUNT 10.1 K/mm3 (4.0-10.0)
[2017-01-20 08:08] LABS: CALCIUM 8.2 mg/dL (8.5-10.1); COCKROFT - GAULT 51.833; CREATININE 0.8 mg/dL (0.55-1.02); MAGNESIUM 1.6 mg/dL (1.8-2.4)
[2017-01-20] MEDS: ALBUTEROL SO4 2.5/IPRATROPIUM 0.5 INH SOL 3 ML VIAL.NEB. NEB SCH ×2 (10:00→22:31)
[2017-01-20] MEDS: LIDOCAINE 5% TOPICAL PATCH TP SCH (10:32)
[2017-01-20] MEDS: HEPARIN NA (PORCINE) 5,000 UNITS/ML 1ML VIAL SQ SCH ×2 (10:33→21:35)
[2017-01-20] MEDS: CEFTRIAXONE 50 ML IVPB SCH (10:34)
[2017-01-20] MEDS: PANTOPRAZOLE SODIUM 100 ML IVPB SCH (10:35)
[2017-01-20] MEDS: BUDESONIDE/FORMETEROL FUMARATE 80/4.5 mcg INHALER IH SCH ×2 (10:40→21:38)
--- NOTE | 2017-01-20 11:59 | PN ---
Progress Note (short form) - Note Progress Note: Attending Surgeon States she is passing flatus and having BM's; tolerated liquids; had vomiting x 1 early AM VSS AF abdo-soft; nt; incision healing well; slight tympany; o/w negative IMP: improving PLAN Advance to soft diet and monitor Chris Burns MD FACS
[2017-01-20] MEDS ORDERED: MAGNESIUM SULF 50% (8.12 MEQ/2 ML-1 GM VIAL) IVPB ONE (12:58)
[2017-01-20 13:16] LABS: URINE APPEARANCE CLEAR; URINE BILIRUBIN NEGATIVE (NEGATIVE); URINE BLOOD NEGATIVE (NEGATIVE); URINE COLOR AMBER; URINE GLUCOSE (UA) NEGATIVE (NEGATIVE); URINE KETONE NEGATIVE (NEGATIVE); URINE NITRITE NEGATIVE (NEGATIVE); URINE UROBILINOGEN NEGATIVE E.U./dl (0.2-1.0)
[2017-01-20 14:27] LABS: URINE LEUK ESTERASE TRACE (NEGATIVE); URINE PROTEIN 1+ (NEGATIVE)
[2017-01-20] MEDS ORDERED: MAGNESIUM SULF 50% (8.12 MEQ/2 ML-1 GM VIAL) ONE (15:15)
[2017-01-20] MEDS: MAGNESIUM OXIDE 400 MG TABLET (FP) PO SCH (15:23)
[2017-01-20] MEDS: DEXTROSE 5%-NORMAL SALINE 1,000 ML IV SCH (15:26)
--- NOTE | 2017-01-20 15:32 | PN ---
Progress Note, Physician History of Present Illness: Pt. tolerated soft fluid, no N, no V, no abd pain. Pt w/o fever, cough, SOB, CP - Current Medication List Current Medications: Active Medications Albuterol Sulfate (Ventolin 0.083% Nebulizer Soln -) 1 amp NEB Q4H PRN PRN Reason: SHORT OF BREATH/WHEEZING Albuterol/Ipratropium (Duoneb -) 1 amp NEB BID [facility] Last Admin: 01/20/17 10:00 Dose: 1 amp Bisacodyl (Dulcolax Suppository -) 10 mg RC DAILY PRN PRN Reason: CONSTIPATION Budesonide/Formoterol Fumarate (Symbicort 80/4.5mcg -) 2 puff IH BID [facility] Last Admin: 01/20/17 10:40 Dose: 2 puff Heparin Sodium (Porcine) (Heparin -) 5,000 unit SQ BID [facility] Last Admin: 01/20/17 10:33 Dose: 5,000 unit Pantoprazole Sodium (Protonix 40mg Ivpb (Pre-Docked)) 100 mls @ 200 mls/hr IVPB BID [facility] Last Admin: 01/20/17 10:35 Dose: 200 mls/hr Ceftriaxone Sodium (Rocephin 1gm Ivpb (Pre-Docked)) 50 mls @ 100 mls/hr IVPB DAILY [facility] Last Admin: 01/20/17 10:34 Dose: 100 mls/hr Metronidazole (Flagyl 500mg Premixed Ivpb -) 100 mls @ 100 mls/hr IVPB Q8H-IV [facility] Last Admin: 01/20/17 10:36 Dose: 100 mls/hr Dextrose/Sodium Chloride (D5-Ns -) 1,000 mls @ 50 mls/hr IV ASDIR [facility] Last Admin: 01/20/17 15:26 Dose: 50 mls/hr Lidocaine (Lidoderm Patch -) 2 patch TP DAILY [facility] Last Admin: 01/20/17 10:32 Dose: 2 patch Magnesium Oxide (Mag-Ox -) 400 mg PO DAILY [facility] Last Admin: 01/20/17 15:23 Dose: 400 mg Ondansetron HCl (Zofran Injection) 8 mg IVPB Q8H PRN PRN Reason: NAUSEA Last Admin: 01/20/17 00:17 Dose: 8 mg - Objective Vital Signs: Vital Signs Temperature 97.5 F L 05/07/17 15:14 Pulse Rate 69 01/20/17 15:14 Respiratory Rate 20 01/20/17 15:14 Blood Pressure 91/57 01/20/17 15:14 O2 Sat by Pulse Oximetry (%) 98 01/19/17 21:00 Constitutional: Yes: No Distress, Calm Cardiovascular: Yes: Regular Rate and Rhythm, S1, S2 Respiratory: Yes: Regular, Rhonchi Gastrointestinal: Yes: Normal Bowel Sounds, Soft, Other (normal BS). No: Tenderness Edema: No Neurological: Yes: Alert, Oriented Labs: CBC, BMP 01/20/17 06:00 01/20/17 06:00 Problem List - Problems (1) PRASHANT (acute kidney injury) Assessment/Plan: secondary to volume contraction, secondary to vomiting Improved on IVF Code(s): N17.9 - ACUTE KIDNEY FAILURE, UNSPECIFIED (2) Small bowel obstruction Assessment/Plan: s/p NGT started on clear fluids -> soft diet; tolerating well To f/u with Sx. Code(s): K56.69 - OTHER INTESTINAL OBSTRUCTION (3) COPD (chronic obstructive pulmonary disease) Code(s): J44.9 - CHRONIC OBSTRUCTIVE PULMONARY DISEASE, UNSPECIFIED (4) CREST syndrome Code(s): M34.1 - CR(E)ST SYNDROME (5) Coronary artery disease Code(s): I25.10 - ATHSCL HEART DISEASE OF [place] CORONARY ARTERY W/O ANG PCTRS (6) Vomiting Code(s): R11.10 - VOMITING, UNSPECIFIED (7) CHF (congestive heart failure) Code(s): I50.9 - HEART FAILURE, UNSPECIFIED (8) Cellulitis Code(s): L03.90 - CELLULITIS, UNSPECIFIED Qualifiers: Site of cellulitis: extremity Site of cellulitis of extremity: lower extremity Laterality: left Qualified Code(s): L03.116 - Cellulitis of left lower limb (9) Hypokalemia Assessment/Plan: corrected K., to f/u level Code(s): E87.6 - HYPOKALEMIA (10) Hypomagnesemia Assessment/Plan: IV Mg. add PO Mg oxide Code(s): E83.42 - HYPOMAGNESEMIA Assessment/Plan As pt. tolerates PO to change IV meds to PO AM labs
--- NOTE | 2017-01-20 16:32 | PN ---
Progress Note (short form) - Note Progress Note: alert sitting chair no complaints vs and labs reviewed Last Vital Signs Temp Pulse Resp BP Pulse Ox 97.5 F L 69 20 91/57 98 01/20/17 15:14 01/20/17 15:14 01/20/17 15:14 01/20/17 15:14 01/19/17 21:00 lungs clear heart reg abd soft nontender ext no edema CBC, BMP 01/20/17 06:00 01/20/17 06:00 IMP- ckd renal function stable so far
[2017-01-20] MEDS: PANTOPRAZOLE 40 MG TABLET (FP) PO SCH (21:35)
[2017-01-21] MEDS: METRONIDAZOLE 500 MG PREMIXED 100 ML IVPB SCH ×3 (02:26→18:27)
[2017-01-21] MEDS: ONDANSETRON 4 MG/2 ML VIAL IVPB PRN ×2 (04:05→15:43)
[2017-01-21 07:51] LABS: MCH 26.2 pg (25.7-33.7); MCHC 32.1 g/dl (32.0-36.0); MEAN CELL VOLUME 81.5 fl (80-96); MEAN PLT VOLUME 9.7 fl (7.5-11.1); PLATELET COUNT 347 K/MM3 (134-434); RDW 19.6 % (11.6-15.6); WHITE BLOOD COUNT 8.1 K/mm3 (4.0-10.0)
[2017-01-21 08:05] LABS: ALBUMIN 2.5 g/dl (3.4-5.0); ANION GAP 13 (8-16); CALCIUM 8.7 mg/dL (8.5-10.1); CO2 28 mmol/L (21-32); GLUCOSE,RANDOM 81 mg/dL (74-106); MAGNESIUM 1.9 mg/dL (1.8-2.4); SGOT/AST 11 U/L (15-37); SGPT/ALT 11 U/L (12-78)
[2017-01-21 08:06] LABS: ALK PHOS 27 U/L (45-117); BILIRUBIN,TOTAL 0.2 mg/dL (0.2-1.0); COCKROFT - GAULT 59.2365; CREATININE 0.7 mg/dL (0.55-1.02); TOT PROT 6.1 g/dl (6.4-8.2)
[2017-01-21] MEDS: ALBUTEROL SO4 2.5/IPRATROPIUM 0.5 INH SOL 3 ML VIAL.NEB. NEB SCH ×2 (10:30→22:00)
[2017-01-21] MEDS ORDERED: PT OWN MED DRAWER 7, Y5N ONE (10:56)
[2017-01-21] MEDS: DEXTROSE 5%-NORMAL SALINE 1,000 ML IV SCH (11:02)
[2017-01-21] MEDS: HEPARIN NA (PORCINE) 5,000 UNITS/ML 1ML VIAL SQ SCH ×2 (11:03→22:34)
[2017-01-21] MEDS: PANTOPRAZOLE 40 MG TABLET (FP) PO SCH (11:04)
[2017-01-21] MEDS: LIDOCAINE 5% TOPICAL PATCH TP SCH (11:04)
[2017-01-21] MEDS: MAGNESIUM OXIDE 400 MG TABLET (FP) PO SCH (11:04)
--- NOTE | 2017-01-21 11:04 | PN ---
Progress Note (short form) - Note Progress Note: Surgery- Dr. Burns Patient seen and examined. Patient states she is doing well. Denies pain, nausea or vomiting. Passing gas, BM yesterday, tolerating diet. Last Vital Signs Temp Pulse Resp BP Pulse Ox 99.5 F 91 H 20 94/61 98 01/21/17 05:00 01/21/17 05:00 01/21/17 05:00 01/21/17 05:00 01/20/17 21:00 CBC, BMP 01/21/17 05:35 01/21/17 05:35 Exam: Gen: NAD Abd: soft, nondistended, nontender, incision healing well, no erythema or drainage <Josefina Shepherd - Last Filed: 01/21/17 11:06> - Note Progress Note: Attending Surgeon Concur w/ a and p as outlined by the PA; prn surgical f/u Chris Burns MD FACS <Chris Burns - Last Filed: 01/21/17 13:21> Problem List - Problems (1) Small bowel obstruction Assessment/Plan: Improving, tolerating diet, bowel function Advance diet as tolerated OOB Code(s): K56.69 - OTHER INTESTINAL OBSTRUCTION (2) Opiate dependence Code(s): F11.20 - OPIOID DEPENDENCE, UNCOMPLICATED <Josefina Shepherd - Last Filed: 01/21/17 11:06>
[2017-01-21] MEDS: BUDESONIDE/FORMETEROL FUMARATE 80/4.5 mcg INHALER IH SCH ×2 (11:05→22:35)
[2017-01-21] MEDS: CEFTRIAXONE 50 ML IVPB SCH (11:05)
--- NOTE | 2017-01-21 11:20 | PN ---
Progress Note, Physician History of Present Illness: OOB in chair No c/o abdominal pain Vomited last night + flatus; no BM Afebrile WBC WNL Cultures negative - Current Medication List Current Medications: Active Medications Albuterol Sulfate (Ventolin 0.083% Nebulizer Soln -) 1 amp NEB Q4H PRN PRN Reason: SHORT OF BREATH/WHEEZING Albuterol/Ipratropium (Duoneb -) 1 amp NEB BID [facility] Last Admin: 01/21/17 10:30 Dose: 1 amp Bisacodyl (Dulcolax Suppository -) 10 mg RC DAILY PRN PRN Reason: CONSTIPATION Budesonide/Formoterol Fumarate (Symbicort 80/4.5mcg -) 2 puff IH BID [facility] Last Admin: 01/21/17 11:05 Dose: 2 puff Heparin Sodium (Porcine) (Heparin -) 5,000 unit SQ BID [facility] Last Admin: 01/21/17 11:03 Dose: 5,000 unit Ceftriaxone Sodium (Rocephin 1gm Ivpb (Pre-Docked)) 50 mls @ 100 mls/hr IVPB DAILY [facility] Last Admin: 01/21/17 11:05 Dose: 100 mls/hr Metronidazole (Flagyl 500mg Premixed Ivpb -) 100 mls @ 100 mls/hr IVPB Q8H-IV [facility] Last Admin: 01/21/17 11:03 Dose: 100 mls/hr Dextrose/Sodium Chloride (D5-Ns -) 1,000 mls @ 50 mls/hr IV ASDIR [facility] Last Admin: 01/21/17 11:02 Dose: Not Given Lidocaine (Lidoderm Patch -) 2 patch TP DAILY [facility] Last Admin: 01/21/17 11:04 Dose: 2 patch Magnesium Oxide (Mag-Ox -) 400 mg PO DAILY [facility] Last Admin: 01/21/17 11:04 Dose: 400 mg Ondansetron HCl (Zofran Injection) 8 mg IVPB Q8H PRN PRN Reason: NAUSEA Last Admin: 01/21/17 04:05 Dose: 8 mg Pantoprazole Sodium (Protonix -) 40 mg PO BID [facility] Last Admin: 01/21/17 11:04 Dose: 40 mg - Objective Vital Signs: Vital Signs Temperature 99.5 F 01/21/17 05:00 Pulse Rate 91 H 01/21/17 05:00 Respiratory Rate 20 01/21/17 05:00 Blood Pressure 94/61 01/21/17 05:00 O2 Sat by Pulse Oximetry (%) 98 01/20/17 21:00 Constitutional: Yes: No Distress Eyes: Yes: Conjunctiva Clear Cardiovascular: Yes: Regular Rate and Rhythm, S1, S2 Respiratory: Yes: CTA Bilaterally Gastrointestinal: Yes: Normal Bowel Sounds, Soft, Other (slightly distended). No: Tenderness Edema: No Labs: CBC, BMP 01/21/17 05:35 01/21/17 05:35 Assessment/Plan Partial SBO Leukocytosis- resolved Possible aspiration Azotemia- resolved Afebrile, WBC WNL Cultures negative Will D/C antibiotics, observe off
--- NOTE | 2017-01-21 14:47 | PN ---
GI Progress Note Subjective: States being nauseous No abdominal pain + flatus per patient - Objective Vital Signs: Vital Signs Temperature 97.7 F 01/21/17 10:00 Pulse Rate 70 01/21/17 10:00 Respiratory Rate 20 01/21/17 10:00 Blood Pressure 99/58 01/21/17 10:00 O2 Sat by Pulse Oximetry (%) 98 01/20/17 21:00 Constitutional: Calm Cardiovascular: Yes: Regular Rate and Rhythm Respiratory: Yes: Diminished (at bases b/l) Gastrointestinal Inspection: Yes: Distention, Scars (+ midline surgical scar) ...Auscultate: Yes: Normoactive Bowel Sounds ...Palpate: No: Tenderness ...Percussion: Yes: Tympanitic Edema: No Neurological: Yes: Alert, Oriented Labs: CBC, BMP 01/21/17 05:35 01/21/17 05:35 Problem List - Problems (1) Partial small bowel obstruction Assessment/Plan: Vs. prolonged post-op ileus vs. pseudoobstruction secondary to meds / scleroderma Continuing supportive measures Ordered repeat FUA Changed back to clears If continued nausea will likely need replacement of NGT to wall suction ? goals at this point. If there is no improvement, would have to consider that this is progression of her scleroderma with very poor prognosis Code(s): K56.69 - OTHER INTESTINAL OBSTRUCTION
--- NOTE | 2017-01-21 16:16 | PN ---
Progress Note, Physician Chief Complaint: Patient seen in her bed. Family visiting. Good urine output. Awake, alert. IV fluids well tolerated. - Current Medication List Current Medications: Active Medications Albuterol Sulfate (Ventolin 0.083% Nebulizer Soln -) 1 amp NEB Q4H PRN PRN Reason: SHORT OF BREATH/WHEEZING Albuterol/Ipratropium (Duoneb -) 1 amp NEB BID [facility] Last Admin: 01/21/17 10:30 Dose: 1 amp Bisacodyl (Dulcolax Suppository -) 10 mg RC DAILY PRN PRN Reason: CONSTIPATION Budesonide/Formoterol Fumarate (Symbicort 80/4.5mcg -) 2 puff IH BID [facility] Last Admin: 01/21/17 11:05 Dose: 2 puff Heparin Sodium (Porcine) (Heparin -) 5,000 unit SQ BID [facility] Last Admin: 01/21/17 11:03 Dose: 5,000 unit Ceftriaxone Sodium (Rocephin 1gm Ivpb (Pre-Docked)) 50 mls @ 100 mls/hr IVPB DAILY [facility] Last Admin: 01/21/17 11:05 Dose: 100 mls/hr Metronidazole (Flagyl 500mg Premixed Ivpb -) 100 mls @ 100 mls/hr IVPB Q8H-IV [facility] Last Admin: 01/21/17 11:03 Dose: 100 mls/hr Dextrose/Sodium Chloride (D5-Ns -) 1,000 mls @ 50 mls/hr IV ASDIR [facility] Last Admin: 01/21/17 11:02 Dose: Not Given Lidocaine (Lidoderm Patch -) 2 patch TP DAILY [facility] Last Admin: 01/21/17 11:04 Dose: 2 patch Magnesium Oxide (Mag-Ox -) 400 mg PO DAILY [facility] Last Admin: 01/21/17 11:04 Dose: 400 mg Ondansetron HCl (Zofran Injection) 8 mg IVPB Q8H PRN PRN Reason: NAUSEA Last Admin: 01/21/17 15:43 Dose: 8 mg - Objective Vital Signs: Vital Signs Temperature 98.9 F 01/21/17 15:04 Pulse Rate 94 H 01/21/17 15:04 Respiratory Rate 20 01/21/17 15:04 Blood Pressure 93/66 01/21/17 15:04 O2 Sat by Pulse Oximetry (%) 98 01/20/17 21:00 Eyes: Yes: WNL HENT: Yes: WNL Neck: Yes: Trachea Midline Cardiovascular: Yes: Regular Rate and Rhythm, S1, S2 Respiratory: Yes: Regular, CTA Bilaterally Gastrointestinal: Yes: Normal Bowel Sounds, Soft Genitourinary: No: Bladder Distention (Good urine output.) Edema: No Neurological: Yes: Alert, Oriented Labs: CBC, BMP 01/21/17 05:35 01/21/17 05:35 Problem List - Problems (1) Chronic renal failure Code(s): N18.9 - CHRONIC KIDNEY DISEASE, UNSPECIFIED (2) Small bowel obstruction Code(s): K56.69 - OTHER INTESTINAL OBSTRUCTION (3) Abdominal distention Code(s): R14.0 - ABDOMINAL DISTENSION (GASEOUS) (4) Abdominal pain Code(s): R10.9 - UNSPECIFIED ABDOMINAL PAIN (5) Acute renal failure Code(s): N17.9 - ACUTE KIDNEY FAILURE, UNSPECIFIED (6) CREST syndrome Code(s): M34.1 - CR(E)ST SYNDROME (7) Fecal incontinence Code(s): R15.9 - FULL INCONTINENCE OF FECES (8) Hyponatremia Code(s): E87.1 - HYPO-OSMOLALITY AND HYPONATREMIA (9) Schatzki's ring Code(s): K22.2 - ESOPHAGEAL OBSTRUCTION (10) Scleroderma Code(s): M34.9 - SYSTEMIC SCLEROSIS, UNSPECIFIED (11) Valvular heart disease Code(s): I38 - ENDOCARDITIS, VALVE UNSPECIFIED (12) Vasculitis Code(s): I77.6 - ARTERITIS, UNSPECIFIED (13) Vomiting Code(s): R11.10 - VOMITING, UNSPECIFIED Assessment/Plan 51 y/o female with Scleroderma, CREST syndrome admitted with nausea and vomiting , profound Dehydration, profound azotemia, and Hyponatremia. The renal functions have improved. The electrolyte pattern in acceptable range. IV fluids well tolerated. Oral intake improving. Reviewed labs. and medications. Will follow with you. Michelle Washington MD
--- NOTE | 2017-01-21 18:28 | PN ---
Progress Note, Physician History of Present Illness: Pt. vomitted alst night and today, associated with nausea. Pt w/o fever, cough, SOB, CP - Current Medication List Current Medications: Active Medications Albuterol Sulfate (Ventolin 0.083% Nebulizer Soln -) 1 amp NEB Q4H PRN PRN Reason: SHORT OF BREATH/WHEEZING Albuterol/Ipratropium (Duoneb -) 1 amp NEB BID [facility] Last Admin: 01/21/17 10:30 Dose: 1 amp Bisacodyl (Dulcolax Suppository -) 10 mg RC DAILY PRN PRN Reason: CONSTIPATION Budesonide/Formoterol Fumarate (Symbicort 80/4.5mcg -) 2 puff IH BID [facility] Last Admin: 01/21/17 11:05 Dose: 2 puff Heparin Sodium (Porcine) (Heparin -) 5,000 unit SQ BID [facility] Last Admin: 01/21/17 11:03 Dose: 5,000 unit Ceftriaxone Sodium (Rocephin 1gm Ivpb (Pre-Docked)) 50 mls @ 100 mls/hr IVPB DAILY [facility] Last Admin: 01/21/17 11:05 Dose: 100 mls/hr Metronidazole (Flagyl 500mg Premixed Ivpb -) 100 mls @ 100 mls/hr IVPB Q8H-IV [facility] Last Admin: 01/21/17 11:03 Dose: 100 mls/hr Dextrose/Sodium Chloride (D5-Ns -) 1,000 mls @ 50 mls/hr IV ASDIR [facility] Last Admin: 01/21/17 11:02 Dose: Not Given Lidocaine (Lidoderm Patch -) 2 patch TP DAILY [facility] Last Admin: 01/21/17 11:04 Dose: 2 patch Magnesium Oxide (Mag-Ox -) 400 mg PO DAILY [facility] Last Admin: 01/21/17 11:04 Dose: 400 mg Ondansetron HCl (Zofran Injection) 8 mg IVPB Q8H PRN PRN Reason: NAUSEA Last Admin: 01/21/17 15:43 Dose: 8 mg - Objective Vital Signs: Vital Signs Temperature 98.9 F 01/21/17 15:04 Pulse Rate 94 H 01/21/17 15:04 Respiratory Rate 20 01/21/17 15:04 Blood Pressure 93/66 01/21/17 15:04 O2 Sat by Pulse Oximetry (%) 99 05/08/17 09:00 Constitutional: Yes: No Distress, Calm Cardiovascular: Yes: Regular Rate and Rhythm, S1, S2 Respiratory: Yes: Regular, Rales ((old)) Gastrointestinal: Yes: Normal Bowel Sounds, Soft. No: Tenderness Edema: No Neurological: Yes: Alert, Oriented Labs: CBC, BMP 01/21/17 05:35 01/21/17 05:35 Problem List - Problems (1) PRASHANT (acute kidney injury) Assessment/Plan: secondary to volume contraction, secondary to vomiting Improved on IVF; stable Code(s): N17.9 - ACUTE KIDNEY FAILURE, UNSPECIFIED (2) Small bowel obstruction Assessment/Plan: s/p NGT started on clear fluids -> soft diet; now with N and V; pt on clear liquids; to f/u abd XR- just taken To f/u with Sx. Code(s): K56.69 - OTHER INTESTINAL OBSTRUCTION (3) COPD (chronic obstructive pulmonary disease) Code(s): J44.9 - CHRONIC OBSTRUCTIVE PULMONARY DISEASE, UNSPECIFIED (4) CREST syndrome Code(s): M34.1 - CR(E)ST SYNDROME (5) Coronary artery disease Code(s): I25.10 - ATHSCL HEART DISEASE OF [place] CORONARY ARTERY W/O ANG PCTRS (6) Vomiting Code(s): R11.10 - VOMITING, UNSPECIFIED (7) CHF (congestive heart failure) Code(s): I50.9 - HEART FAILURE, UNSPECIFIED (8) Cellulitis Code(s): L03.90 - CELLULITIS, UNSPECIFIED Qualifiers: Site of cellulitis: extremity Site of cellulitis of extremity: lower extremity Laterality: left Qualified Code(s): L03.116 - Cellulitis of left lower limb (9) Hypokalemia Code(s): E87.6 - HYPOKALEMIA (10) Hypomagnesemia Code(s): E83.42 - HYPOMAGNESEMIA Assessment/Plan I encourage pt. to avoid drinking fluids until abd XR report is back (confirmed by her nurse). IVF AM labs
[2017-01-21] MEDS ORDERED: SODIUM CHLORIDE 1,000 ML IV SCH (18:30)
[2017-01-22] MEDS: ONDANSETRON 4 MG/2 ML VIAL IVPB PRN ×2 (01:16→19:39)
[2017-01-22] MEDS: METRONIDAZOLE 500 MG PREMIXED 100 ML IVPB SCH ×3 (01:37→18:00)
[2017-01-22 07:22] LABS: MCH 26.8 pg (25.7-33.7); MCHC 33.1 g/dl (32.0-36.0); MEAN CELL VOLUME 80.9 fl (80-96); MEAN PLT VOLUME 9.4 fl (7.5-11.1); PLATELET COUNT 346 K/MM3 (134-434); RDW 19.6 % (11.6-15.6); WHITE BLOOD COUNT 5.9 K/mm3 (4.0-10.0)
[2017-01-22 07:54] LABS: ALBUMIN 2.4 g/dl (3.4-5.0); ALK PHOS 26 U/L (45-117); ANION GAP 13 (8-16); BILIRUBIN,TOTAL 0.4 mg/dL (0.2-1.0); CALCIUM 8.5 mg/dL (8.5-10.1); CO2 26 mmol/L (21-32); COCKROFT - GAULT 59.2365; CREATININE 0.7 mg/dL (0.55-1.02); GLUCOSE,RANDOM 80 mg/dL (74-106); SGOT/AST 10 U/L (15-37); SGPT/ALT 12 U/L (12-78)
[2017-01-22] MEDS: ALBUTEROL SO4 2.5/IPRATROPIUM 0.5 INH SOL 3 ML VIAL.NEB. NEB SCH ×2 (09:10→21:33)
[2017-01-22] MEDS ORDERED: PT OWN MED DRAWER 7, Y5N ONE (09:27)
[2017-01-22] MEDS: LIDOCAINE 5% TOPICAL PATCH TP SCH (09:40)
[2017-01-22] MEDS: CEFTRIAXONE 50 ML IVPB SCH (09:40)
[2017-01-22] MEDS: BUDESONIDE/FORMETEROL FUMARATE 80/4.5 mcg INHALER IH SCH ×2 (09:40→21:23)
[2017-01-22] MEDS: HEPARIN NA (PORCINE) 5,000 UNITS/ML 1ML VIAL SQ SCH ×2 (09:40→21:22)
[2017-01-22] MEDS: MAGNESIUM OXIDE 400 MG TABLET (FP) PO SCH (09:40)
--- NOTE | 2017-01-22 11:31 | PN ---
GI Progress Note Subjective: No vomiting States being hungry No acute events + flatus, no BM for 2 days - Objective Vital Signs: Vital Signs Temperature 98.8 F 01/22/17 06:00 Pulse Rate 89 01/22/17 06:00 Respiratory Rate 20 01/22/17 06:00 Blood Pressure 89/53 01/22/17 06:00 O2 Sat by Pulse Oximetry (%) 95 01/21/17 21:00 Constitutional: Calm Eyes: No: Sclera Icterus Cardiovascular: Yes: Regular Rate and Rhythm Respiratory: Yes: CTA Bilaterally Gastrointestinal Inspection: Yes: Distention (Improved from yesterday and previous. + BS) ...Auscultate: Yes: Normoactive Bowel Sounds ...Percussion: Yes: Tympanitic Edema: No Neurological: Yes: Alert, Oriented Labs: CBC, BMP 01/22/17 05:35 01/22/17 05:35 Problem List - Problems (1) Partial small bowel obstruction Assessment/Plan: AXR not offiicially read but appaears improved as does Ms. Rider's clinical exam. Advance diet to low residue MirALX 17g BID Monitor clinically Code(s): K56.69 - OTHER INTESTINAL OBSTRUCTION
--- NOTE | 2017-01-22 15:12 | PN ---
Progress Note (short form) - Note Progress Note: Renal Follow up for PRASHANT Pt seen and examined at the bedside has some N/V last night but none today tolerated liquid diet for breakfast reports passing gas and denies any abd pain no sob or chest pain Vital Signs Temperature 98.8 F 01/22/17 06:00 Pulse Rate 89 01/22/17 06:00 Respiratory Rate 20 01/22/17 06:00 Blood Pressure 89/53 01/22/17 06:00 O2 Sat by Pulse Oximetry (%) 95 01/21/17 21:00 Intake & Output 01/19/17 01/20/17 01/21/17 01/22/17 23:59 23:59 23:59 23:59 Intake Total 2440 2100 1760 150 Output Total 700 500 202 Balance 1740 1600 1558 150 Gen: NAD CVS: RRR Lungs: CTA Abd: soft NT/ND Ext: No edema, clubbing or cyanosis CBC, BMP 01/22/17 05:35 01/22/17 05:35 Laboratory Tests 01/22/17 05:35 Calcium 8.5 Albumin 2.4 L Current Medications Albuterol Sulfate (Ventolin 0.083% Nebulizer Soln -) 1 amp NEB Q4H PRN PRN Reason: SHORT OF BREATH/WHEEZING Albuterol/Ipratropium (Duoneb -) 1 amp NEB BID [facility] Last Admin: 01/22/17 09:10 Dose: Not Given Budesonide/Formoterol Fumarate (Symbicort 80/4.5mcg -) 2 puff IH BID [facility] Last Admin: 01/22/17 09:40 Dose: 2 puff Heparin Sodium (Porcine) (Heparin -) 5,000 unit SQ BID [facility] Last Admin: 01/22/17 09:40 Dose: 5,000 unit Ceftriaxone Sodium (Rocephin 1gm Ivpb (Pre-Docked)) 50 mls @ 100 mls/hr IVPB DAILY [facility] Last Admin: 01/22/17 09:40 Dose: 100 mls/hr Metronidazole (Flagyl 500mg Premixed Ivpb -) 100 mls @ 100 mls/hr IVPB Q8H-IV [facility] Last Admin: 01/22/17 09:41 Dose: 100 mls/hr Dextrose/Sodium Chloride (D5-Ns -) 1,000 mls @ 50 mls/hr IV ASDIR [facility] Last Admin: 01/21/17 11:02 Dose: Not Given Sodium Chloride (Normal Saline -) 1,000 mls @ 50 mls/hr IV ASDIR [facility] Stop: 01/22/17 18:28 Last Admin: 01/21/17 18:40 Dose: 50 mls/hr Lidocaine (Lidoderm Patch -) 2 patch TP DAILY [facility] Last Admin: 01/22/17 09:40 Dose: 2 patch Magnesium Oxide (Mag-Ox -) 400 mg PO DAILY [facility] Last Admin: 01/22/17 09:40 Dose: 400 mg Ondansetron HCl (Zofran Injection) 8 mg IVPB Q8H PRN PRN Reason: NAUSEA Last Admin: 01/22/17 01:16 Dose: 8 mg Polyethylene Glycol (Miralax (For Daily Use) -) 17 gm PO BID [facility] A/P 51 year old woman with PMhx of CHF, HLD, Asthma, Scleroderma, Raynauds, CREST presented with N/V and found to have PRASHANT #PRASHANT secondary to volume depletion in setting of N/V Renal function with significant improvement with IVF continue IVF at low rate for now Advance diet as per GI Trend BUN/Cr avoid JEOVANNY/ARB and NSAIDs for now #Bowel obstruction/pseudoobsruction/N/V advancing diet as per GI Abd x-ray official read pending Thank you Srinivasan Tijerina DO
[2017-01-22] MEDS: DEXTROSE 5%-NORMAL SALINE 1,000 ML IV SCH (15:43)
--- NOTE | 2017-01-22 18:26 | PN ---
Progress Note, Physician Chief Complaint: started soft diet to see how tolerated; wants to go home off all opiates doing OK - Current Medication List Current Medications: Active Medications Albuterol Sulfate (Ventolin 0.083% Nebulizer Soln -) 1 amp NEB Q4H PRN PRN Reason: SHORT OF BREATH/WHEEZING Albuterol/Ipratropium (Duoneb -) 1 amp NEB BID [facility] Last Admin: 01/22/17 09:10 Dose: Not Given Budesonide/Formoterol Fumarate (Symbicort 80/4.5mcg -) 2 puff IH BID [facility] Last Admin: 01/22/17 09:40 Dose: 2 puff Heparin Sodium (Porcine) (Heparin -) 5,000 unit SQ BID [facility] Last Admin: 01/22/17 09:40 Dose: 5,000 unit Ceftriaxone Sodium (Rocephin 1gm Ivpb (Pre-Docked)) 50 mls @ 100 mls/hr IVPB DAILY [facility] Last Admin: 01/22/17 09:40 Dose: 100 mls/hr Metronidazole (Flagyl 500mg Premixed Ivpb -) 100 mls @ 100 mls/hr IVPB Q8H-IV [facility] Last Admin: 01/22/17 18:00 Dose: 100 mls/hr Dextrose/Sodium Chloride (D5-Ns -) 1,000 mls @ 50 mls/hr IV ASDIR [facility] Last Admin: 01/22/17 15:43 Dose: 50 mls/hr Sodium Chloride (Normal Saline -) 1,000 mls @ 50 mls/hr IV ASDIR [facility] Stop: 01/22/17 18:28 Last Admin: 01/21/17 18:40 Dose: 50 mls/hr Lidocaine (Lidoderm Patch -) 2 patch TP DAILY [facility] Last Admin: 01/22/17 09:40 Dose: 2 patch Magnesium Oxide (Mag-Ox -) 400 mg PO DAILY [facility] Last Admin: 01/22/17 09:40 Dose: 400 mg Ondansetron HCl (Zofran Injection) 8 mg IVPB Q8H PRN PRN Reason: NAUSEA Last Admin: 01/22/17 01:16 Dose: 8 mg Polyethylene Glycol (Miralax (For Daily Use) -) 17 gm PO BID [facility] - Objective Vital Signs: Vital Signs Temperature 97.5 F L 01/22/17 17:48 Pulse Rate 98 H 01/22/17 17:48 Respiratory Rate 20 01/22/17 17:48 Blood Pressure 81/57 01/22/17 17:48 O2 Sat by Pulse Oximetry (%) 96 01/22/17 09:00 Constitutional: Yes: No Distress, Calm Eyes: Yes: Conjunctiva Clear HENT: Yes: Atraumatic Neck: Yes: Supple Cardiovascular: Yes: Regular Rate and Rhythm Respiratory: Yes: CTA Bilaterally Gastrointestinal: Yes: Soft. No: Distention, Tenderness Genitourinary: No: CVA Tenderness - Left, CVA Tenderness - Right Musculoskeletal: No: Joint Stiffness, Joint Swelling Extremities: Yes: Other (some fingers amputations/ hands, old). No: Cold, Cool Edema: No Peripheral Pulses WNL: Yes Integumentary: No: Pressure Ulcer, Rash, Venous Stasis Changes Neurological: Yes: WNL, Alert, Oriented ...Motor Strength: WNL Psychiatric: Yes: WNL, Alert, Oriented. No: Agitated, Suicidal Ideation Labs: CBC, BMP 01/22/17 05:35 01/22/17 05:35 - ....Imaging Other: Report Reviewed Assessment/Plan The patient is a 51 year old female with significant past medical history of s/ p abdominal exploratory laparotomy (12/23/16), nonobstructive ashd and diastolic CHF, narcotics abuse, hyperlipidemia, COPD, asthma, scleroderma, gastroparesis, Raynaud's, multiple upper extremity digit amputations, and CREST syndrome admitted with SBO severe protein malnutrition SBO resolved advance diet as tolerated, close f/u iv atb, per ID GI, surgery and renal f/u falls decubs DVT pfx f/u labs, cx d/w pt and staff
[2017-01-22] MEDS: POLYETHYLENE GLYCOL 3350 119 GM BTL PO SCH (21:23)
[2017-01-23] MEDS: METRONIDAZOLE 500 MG PREMIXED 100 ML IVPB SCH ×3 (02:54→20:50)
[2017-01-23] MEDS: ONDANSETRON 4 MG/2 ML VIAL IVPB PRN (08:22)
[2017-01-23 08:47] LABS: ALBUMIN 2.6 g/dl (3.4-5.0); ALK PHOS 30 U/L (45-117); ANION GAP 15 (8-16); BILIRUBIN,TOTAL 0.2 mg/dL (0.2-1.0); CALCIUM 8.7 mg/dL (8.5-10.1); CO2 32 mmol/L (21-32); CREATININE 0.7 mg/dL (0.55-1.02); GLUCOSE,RANDOM 94 mg/dL (74-106); MAGNESIUM 1.6 mg/dL (1.8-2.4); PHOSPHOROUS 1.7 mg/dL (2.5-4.9); SGOT/AST 12 U/L (15-37); SGPT/ALT 12 U/L (12-78); TOT PROT 6.3 g/dl (6.4-8.2)
[2017-01-23] MEDS ORDERED: DEXTROSE 5%-NORMAL SALINE 1,000 ML with POTASSIUM CHLORIDE 20 MEQ IVPB SCH (09:19)
--- NOTE | 2017-01-23 09:21 | PN ---
Progress Note, Physician Chief Complaint: vomited last night after dinner and this am after oatmeal; will change back to clear fluids restart IV regaln and IV protonix - Current Medication List Current Medications: Active Medications Albuterol Sulfate (Ventolin 0.083% Nebulizer Soln -) 1 amp NEB Q4H PRN PRN Reason: SHORT OF BREATH/WHEEZING Albuterol/Ipratropium (Duoneb -) 1 amp NEB BID [facility] Last Admin: 01/22/17 21:33 Dose: Not Given Budesonide/Formoterol Fumarate (Symbicort 80/4.5mcg -) 2 puff IH BID [facility] Last Admin: 01/22/17 21:23 Dose: 2 puff Heparin Sodium (Porcine) (Heparin -) 5,000 unit SQ BID [facility] Last Admin: 01/22/17 21:22 Dose: 5,000 unit Ceftriaxone Sodium (Rocephin 1gm Ivpb (Pre-Docked)) 50 mls @ 100 mls/hr IVPB DAILY [facility] Last Admin: 01/22/17 09:40 Dose: 100 mls/hr Metronidazole (Flagyl 500mg Premixed Ivpb -) 100 mls @ 100 mls/hr IVPB Q8H-IV [facility] Last Admin: 01/23/17 02:54 Dose: 100 mls/hr Potassium Chloride (Potassium Chloride 10 Meq Premix Ivpb -) 100 mls @ 100 mls/ hr IVPB Q60M [facility] Stop: 01/23/17 12:29 Potassium Chloride 20 meq/ (Dextrose/Sodium Chloride) 1,010 mls @ 50 mls/hr IVPB ASDIR [facility] Lidocaine (Lidoderm Patch -) 2 patch TP DAILY [facility] Last Admin: 01/22/17 09:40 Dose: 2 patch Magnesium Oxide (Mag-Ox -) 400 mg PO DAILY [facility] Last Admin: 01/22/17 09:40 Dose: 400 mg Ondansetron HCl (Zofran Injection) 8 mg IVPB Q8H PRN PRN Reason: NAUSEA Last Admin: 01/23/17 08:22 Dose: 8 mg Polyethylene Glycol (Miralax (For Daily Use) -) 17 gm PO BID [facility] Last Admin: 01/22/17 21:23 Dose: Not Given - Objective Vital Signs: Vital Signs Temperature 98.5 F 01/23/17 05:57 Pulse Rate 82 01/23/17 05:57 Respiratory Rate 20 01/23/17 05:57 Blood Pressure 87/61 01/23/17 05:57 O2 Sat by Pulse Oximetry (%) 97 01/22/17 20:25 Constitutional: Yes: No Distress, Calm Eyes: Yes: Conjunctiva Clear HENT: Yes: Atraumatic Neck: Yes: Supple Cardiovascular: Yes: Regular Rate and Rhythm Respiratory: Yes: CTA Bilaterally Gastrointestinal: Yes: Soft. No: Distention Genitourinary: No: CVA Tenderness - Left, CVA Tenderness - Right Musculoskeletal: No: Joint Stiffness, Joint Swelling Extremities: No: Calf Tenderness, Cold Edema: No Peripheral Pulses WNL: Yes Neurological: Yes: WNL, Alert, Oriented ...Motor Strength: WNL Psychiatric: Yes: WNL, Alert, Oriented. No: Agitated, Suicidal Ideation Labs: CBC, BMP 01/22/17 05:35 01/23/17 06:00 - ....Imaging Other: Report Reviewed Assessment/Plan The patient is a 51 year old female with significant past medical history of s/ p abdominal exploratory laparotomy (12/23/16), nonobstructive ashd and diastolic CHF, narcotics abuse, hyperlipidemia, COPD, asthma, scleroderma, gastroparesis, Raynaud's, multiple upper extremity digit amputations, and CREST syndrome admitted with SBO severe protein malnutrition vomitied again; clear fluids diet, GI f/u low K: replete lytes iv atb, per ID GI, surgery and renal f/u falls decubs DVT pfx f/u labs, cx d/w pt and staff
[2017-01-23] MEDS ORDERED: D5-NS + 20 MEQ KCL - 1,000 ML IV SCH (10:00)
[2017-01-23] MEDS: LIDOCAINE 5% TOPICAL PATCH TP SCH (10:03)
[2017-01-23] MEDS: HEPARIN NA (PORCINE) 5,000 UNITS/ML 1ML VIAL SQ SCH ×2 (10:04→21:00)
[2017-01-23] MEDS: MAGNESIUM OXIDE 400 MG TABLET (FP) PO SCH (10:04)
[2017-01-23] MEDS: CEFTRIAXONE 50 ML IVPB SCH (10:05)
[2017-01-23] MEDS: ALBUTEROL SO4 2.5/IPRATROPIUM 0.5 INH SOL 3 ML VIAL.NEB. NEB SCH ×2 (10:40→22:30)
[2017-01-23] MEDS: POLYETHYLENE GLYCOL 3350 119 GM BTL PO SCH ×2 (12:23→21:01)
[2017-01-23] MEDS: BUDESONIDE/FORMETEROL FUMARATE 80/4.5 mcg INHALER IH SCH ×2 (12:23→21:00)
[2017-01-23] MEDS: METOCLOPRAMIDE HCL INJECTION 10 MG/2 ML VIAL IVPB SCH ×2 (13:00→19:19)
[2017-01-23] MEDS: KCL 10 MEQ IVPB 100 ML IVPB SCH ×2 (13:02→19:50)
--- NOTE | 2017-01-23 14:23 | PN ---
Progress Note (short form) - Note Progress Note: Renal Follow up for PRASHANT Pt seen and examined at the bedside has N/V this am no abd pain passing gas and has a BM no chest pain or sob Vital Signs Temperature 98.5 F 01/23/17 05:57 Pulse Rate 82 01/23/17 05:57 Respiratory Rate 20 01/23/17 05:57 Blood Pressure 87/61 01/23/17 05:57 O2 Sat by Pulse Oximetry (%) 97 01/22/17 20:25 Intake & Output 01/20/17 01/21/17 01/22/17 01/23/17 23:59 23:59 23:59 23:59 Intake Total 2100 1760 1900 1890 Output Total 500 202 300 550 Balance 1600 1558 1600 1340 Gen: NAD CVS: RRR Lungs: CTA Abd: soft NT/ND Ext: No edema, clubbing or cyanosis CBC, BMP 01/22/17 05:35 01/23/17 06:00 Current Medications Albuterol Sulfate (Ventolin 0.083% Nebulizer Soln -) 1 amp NEB Q4H PRN PRN Reason: SHORT OF BREATH/WHEEZING Albuterol/Ipratropium (Duoneb -) 1 amp NEB BID [facility] Last Admin: 01/23/17 10:40 Dose: 1 amp Budesonide/Formoterol Fumarate (Symbicort 80/4.5mcg -) 2 puff IH BID [facility] Last Admin: 01/23/17 12:23 Dose: 2 puff Heparin Sodium (Porcine) (Heparin -) 5,000 unit SQ BID [facility] Last Admin: 01/23/17 10:04 Dose: 5,000 unit Ceftriaxone Sodium (Rocephin 1gm Ivpb (Pre-Docked)) 50 mls @ 100 mls/hr IVPB DAILY [facility] Last Admin: 01/23/17 10:05 Dose: 100 mls/hr Metronidazole (Flagyl 500mg Premixed Ivpb -) 100 mls @ 100 mls/hr IVPB Q8H-IV [facility] Last Admin: 01/23/17 10:04 Dose: 100 mls/hr Dextrose/Sodium Chloride (Dextrose 5%-Normal Saline+20 Meq Kcl -) 1,000 mls @ 50 mls/hr IV ASDIR [facility] Last Admin: 01/23/17 12:24 Dose: 50 mls/hr Pantoprazole Sodium (Protonix 40mg Ivpb (Pre-Docked)) 100 mls @ 200 mls/hr IVPB BID [facility] Lidocaine (Lidoderm Patch -) 2 patch TP DAILY [facility] Last Admin: 01/23/17 10:03 Dose: 2 patch Magnesium Oxide (Mag-Ox -) 400 mg PO DAILY [facility] Last Admin: 01/23/17 10:04 Dose: 400 mg Metoclopramide HCl (Reglan Injection -) 10 mg IVPB Q8H-IV [facility] Last Admin: 01/23/17 13:00 Dose: 10 mg Ondansetron HCl (Zofran Injection) 8 mg IVPB Q8H PRN PRN Reason: NAUSEA Last Admin: 01/23/17 08:22 Dose: 8 mg Polyethylene Glycol (Miralax (For Daily Use) -) 17 gm PO BID [facility] Last Admin: 01/23/17 12:23 Dose: Not Given A/P 51 year old woman with PMhx of CHF, HLD, Asthma, Scleroderma, Raynauds, CREST presented with N/V and found to have PRASHANT #PRASHANT secondary to volume depletion in setting of N/V Renal function now improved to baseline can monitor renal function off IVF #Hypokalemia Give KCL 40meq PO x 1 Trend K and Mg levels #Bowel obstruction/pseudoobsruction/N/V continue to have nausea and emesis diet changed to clear liquid diet Thank you Srinivasan Tijerina DO
[2017-01-23] MEDS ORDERED: POTASSIUM CHLORIDE ORAL LIQUID 20 MEQ/15 ML PO ONE (15:00)
[2017-01-23] MEDS: MAGNESIUM SULF 50% (8.12 MEQ/2 ML-1 GM VIAL) IVPB SCH ×2 (19:08→22:51)
[2017-01-24] MEDS: METOCLOPRAMIDE HCL INJECTION 10 MG/2 ML VIAL IVPB SCH ×3 (01:36→17:52)
[2017-01-24] MEDS: METRONIDAZOLE 500 MG PREMIXED 100 ML IVPB SCH ×2 (03:04→10:22)
[2017-01-24 07:21] LABS: BASOPHIL 0.7 % (0-2.0); EOSINOPHIL 2.5 % (0-4.5); MCH 26.6 pg (25.7-33.7); MCHC 32.8 g/dl (32.0-36.0); MEAN CELL VOLUME 81.1 fl (80-96); MEAN PLT VOLUME 8.8 fl (7.5-11.1); NEUTROPHILS 64.1 % (42.8-82.8); PLATELET COUNT 323 K/MM3 (134-434); RDW 19.7 % (11.6-15.6)
[2017-01-24 07:45] LABS: ALBUMIN 2.5 g/dl (3.4-5.0); ANION GAP 8 (8-16); CALCIUM 8.2 mg/dL (8.5-10.1); CO2 33 mmol/L (21-32); GLUCOSE,RANDOM 98 mg/dL (74-106); MAGNESIUM 2.6 mg/dL (1.8-2.4)
[2017-01-24 07:56] LABS: ALK PHOS 26 U/L (45-117); BILIRUBIN,TOTAL 0.2 mg/dL (0.2-1.0); CREATININE 0.7 mg/dL (0.55-1.02); SGOT/AST 12 U/L (15-37); SGPT/ALT 12 U/L (12-78)
--- NOTE | 2017-01-24 09:49 | PN ---
Progress Note, Physician Chief Complaint: OOB to chair feels better, hungry, wants to eat - Current Medication List Current Medications: Active Medications Albuterol Sulfate (Ventolin 0.083% Nebulizer Soln -) 1 amp NEB Q4H PRN PRN Reason: SHORT OF BREATH/WHEEZING Albuterol/Ipratropium (Duoneb -) 1 amp NEB BID [facility] Last Admin: 01/23/17 22:30 Dose: Not Given Budesonide/Formoterol Fumarate (Symbicort 80/4.5mcg -) 2 puff IH BID [facility] Last Admin: 01/23/17 21:00 Dose: 2 puff Heparin Sodium (Porcine) (Heparin -) 5,000 unit SQ BID [facility] Last Admin: 01/23/17 21:00 Dose: 5,000 unit Ceftriaxone Sodium (Rocephin 1gm Ivpb (Pre-Docked)) 50 mls @ 100 mls/hr IVPB DAILY [facility] Last Admin: 01/23/17 10:05 Dose: 100 mls/hr Metronidazole (Flagyl 500mg Premixed Ivpb -) 100 mls @ 100 mls/hr IVPB Q8H-IV [facility] Last Admin: 01/24/17 03:04 Dose: 100 mls/hr Pantoprazole Sodium (Protonix 40mg Ivpb (Pre-Docked)) 100 mls @ 200 mls/hr IVPB BID [facility] Last Admin: 01/24/17 00:00 Dose: 200 mls/hr Potassium Chloride 10 meq/ (Sodium Chloride) 1,005 mls @ 75 mls/hr IVPB ASDIR [facility] Lidocaine (Lidoderm Patch -) 2 patch TP DAILY [facility] Last Admin: 01/23/17 10:03 Dose: 2 patch Magnesium Oxide (Mag-Ox -) 400 mg PO DAILY [facility] Last Admin: 01/23/17 10:04 Dose: 400 mg Metoclopramide HCl (Reglan Injection -) 10 mg IVPB Q8H-IV [facility] Last Admin: 01/24/17 01:36 Dose: 10 mg Ondansetron HCl (Zofran Injection) 8 mg IVPB Q8H PRN PRN Reason: NAUSEA Last Admin: 01/23/17 08:22 Dose: 8 mg Polyethylene Glycol (Miralax (For Daily Use) -) 17 gm PO BID [facility] Last Admin: 01/23/17 21:01 Dose: 17 gm - Objective Vital Signs: Vital Signs Temperature 98.9 F 01/24/17 05:46 Pulse Rate 82 01/24/17 05:46 Respiratory Rate 20 01/24/17 05:46 Blood Pressure 101/69 01/24/17 05:46 O2 Sat by Pulse Oximetry (%) 93 L 01/23/17 21:00 Constitutional: Yes: No Distress, Calm Eyes: Yes: Conjunctiva Clear HENT: Yes: Atraumatic Neck: Yes: Supple Cardiovascular: Yes: Regular Rate and Rhythm Respiratory: Yes: CTA Bilaterally Gastrointestinal: Yes: Soft. No: Distention, Tenderness Musculoskeletal: No: Joint Stiffness, Joint Swelling Extremities: No: Cold, Cool Edema: No Neurological: Yes: WNL, Alert, Oriented ...Motor Strength: WNL Psychiatric: Yes: WNL, Alert, Oriented. No: Agitated Labs: CBC, BMP 01/24/17 06:00 01/24/17 06:00 - ....Imaging Other: Report Reviewed Assessment/Plan The patient is a 51 year old female with significant past medical history of s/ p abdominal exploratory laparotomy (12/23/16), nonobstructive ashd and diastolic CHF, narcotics abuse, hyperlipidemia, COPD, asthma, scleroderma, gastroparesis, Raynaud's, multiple upper extremity digit amputations, and CREST syndrome admitted with SBO severe protein malnutrition advance diet as tolerated, GI f/u low K: replete lytes iv atb, per ID GI, surgery and renal f/u falls decubs DVT pfx f/u labs, cx d/w pt and staff d/w pt she said she designated her sister Park as her HCP in the past and she will sign the form, d/w palliative care services also
[2017-01-24] MEDS ORDERED: PT OWN MED DRAWER 7, Y5N ONE (09:51)
[2017-01-24] MEDS: ALBUTEROL SO4 2.5/IPRATROPIUM 0.5 INH SOL 3 ML VIAL.NEB. NEB SCH ×2 (10:00→22:43)
[2017-01-24] MEDS: MAGNESIUM OXIDE 400 MG TABLET (FP) PO SCH (10:21)
[2017-01-24] MEDS: HEPARIN NA (PORCINE) 5,000 UNITS/ML 1ML VIAL SQ SCH ×2 (10:22→22:10)
[2017-01-24] MEDS: CEFTRIAXONE 50 ML IVPB SCH (10:23)
[2017-01-24] MEDS: LIDOCAINE 5% TOPICAL PATCH TP SCH (10:24)
[2017-01-24] MEDS: PANTOPRAZOLE SODIUM 100 ML IVPB SCH ×2 (10:24)
[2017-01-24] MEDS: POLYETHYLENE GLYCOL 3350 119 GM BTL PO SCH ×2 (10:24→22:10)
[2017-01-24] MEDS: BUDESONIDE/FORMETEROL FUMARATE 80/4.5 mcg INHALER IH SCH ×2 (10:42→22:10)
[2017-01-24] MEDS: POTASSIUM CHLORIDE 10 MEQ in SODIUM CHLORIDE 1,000 ML IVPB SCH (11:31)
--- NOTE | 2017-01-24 13:50 | PN ---
Progress Note (short form) - Note Progress Note: Renal Follow up for PRASHANT Pt seen and examined at the bedside reports continues N/V as of last night no chest pain or sob no abd pain is passing gas Vital Signs Temperature 97.8 F 01/24/17 10:00 Pulse Rate 74 01/24/17 10:00 Respiratory Rate 20 01/24/17 10:00 Blood Pressure 82/56 01/24/17 10:00 O2 Sat by Pulse Oximetry (%) 93 L 01/23/17 21:00 Intake & Output 01/21/17 01/22/17 01/23/17 01/24/17 23:59 23:59 23:59 23:59 Intake Total 1760 1900 2290 250 Output Total 674 028 6597 Balance 1558 1600 1140 250 Gen: NAD CVS: RRR Lungs: CTA Abd: soft NT/ND Ext: No edema, clubbing or cyanosis CBC, BMP 01/24/17 06:00 01/24/17 06:00 Laboratory Tests 01/23/17 01/24/17 06:00 06:00 Calcium 8.2 L Phosphorus 1.7 L D Magnesium 1.6 L 2.6 H D Albumin 2.5 L Current Medications Albuterol Sulfate (Ventolin 0.083% Nebulizer Soln -) 1 amp NEB Q4H PRN PRN Reason: SHORT OF BREATH/WHEEZING Albuterol/Ipratropium (Duoneb -) 1 amp NEB BID [facility] Last Admin: 01/24/17 10:00 Dose: 1 amp Budesonide/Formoterol Fumarate (Symbicort 80/4.5mcg -) 2 puff IH BID [facility] Last Admin: 01/24/17 10:42 Dose: 2 puff Heparin Sodium (Porcine) (Heparin -) 5,000 unit SQ BID [facility] Last Admin: 01/24/17 10:22 Dose: 5,000 unit Pantoprazole Sodium (Protonix 40mg Ivpb (Pre-Docked)) 100 mls @ 200 mls/hr IVPB BID [facility] Last Admin: 01/24/17 10:24 Dose: 200 mls/hr Potassium Chloride 10 meq/ (Sodium Chloride) 1,005 mls @ 75 mls/hr IVPB Q13H [facility] Last Admin: 01/24/17 11:31 Dose: 75 mls/hr Potassium Phosphate 30 mm/ (Sodium Chloride) 260 mls @ 62.5 mls/hr IVPB ONCE ONE Stop: 01/24/17 17:50 Lidocaine (Lidoderm Patch -) 2 patch TP DAILY [facility] Last Admin: 01/24/17 10:24 Dose: 2 patch Magnesium Oxide (Mag-Ox -) 400 mg PO DAILY [facility] Last Admin: 01/24/17 10:21 Dose: 400 mg Metoclopramide HCl (Reglan Injection -) 10 mg IVPB Q8H-IV [facility] Last Admin: 01/24/17 10:24 Dose: 10 mg Ondansetron HCl (Zofran Injection) 8 mg IVPB Q8H PRN PRN Reason: NAUSEA Last Admin: 01/23/17 08:22 Dose: 8 mg Polyethylene Glycol (Miralax (For Daily Use) -) 17 gm PO BID [facility] Last Admin: 01/24/17 10:24 Dose: 17 gm A/P 51 year old woman with PMhx of CHF, HLD, Asthma, Scleroderma, Raynauds, CREST presented with N/V and found to have PRASHANT #PRASHANT secondary to volume depletion in setting of N/V Renal function now improved to baseline will continue isotonic saline for now given N/V and poor oral intake #Hypophosphatemia give phos less then 2 -> could cause smooth muscle dysfunction and could contribue to decreased GI motility will give K-phos IV 30 mmol today Trend PHos daily #Bowel obstruction/pseudoobsruction/N/V management as per primary Thank you Srinivasan Tijerina DO
[2017-01-24 14:32] LABS: PHOSPHOROUS 1.5 mg/dL (2.5-4.9)
[2017-01-24] MEDS ORDERED: ACETAMINOPHEN 325 MG TABLET (FP) PO PRN (14:36)
[2017-01-24] MEDS ORDERED: POTASSIUM PHOSPHATE 30 MM in SODIUM CHLORIDE 500 ML IVPB ONE (15:00)
--- NOTE | 2017-01-24 16:48 | PN ---
GI Progress Note Subjective: No acute events No abdominal pain + Flatus - Objective Vital Signs: Vital Signs Temperature 97.5 F L 01/24/17 14:18 Pulse Rate 84 01/24/17 14:18 Respiratory Rate 20 01/24/17 14:18 Blood Pressure 91/52 01/24/17 14:18 O2 Sat by Pulse Oximetry (%) 98 01/24/17 09:00 Constitutional: Calm Eyes: No: Sclera Icterus Respiratory: Yes: CTA Bilaterally Gastrointestinal Inspection: No: Distention ...Auscultate: Yes: Normoactive Bowel Sounds ...Palpate: No: Tenderness ...Percussion: No: Tympanitic Edema: No Neurological: Yes: Alert, Oriented Labs: CBC, BMP 01/24/17 06:00 01/24/17 06:00 - ....Imaging X-ray: Report Reviewed, Image Reviewed Problem List - Problems (1) Partial small bowel obstruction Assessment/Plan: Vs. ileus vs. pseudoobstruction Clinically improved as has abdominal exam and seems to be tolerating low fiber diet Constipation prone as well given opiate use and underlying scleroderma. Continue MiraLAX 17g PO BID Would d/c standing reglan Changed PPI to once daily Code(s): K56.69 - OTHER INTESTINAL OBSTRUCTION
[2017-01-25] MEDS: POTASSIUM CHLORIDE 10 MEQ in SODIUM CHLORIDE 1,000 ML IVPB SCH ×2 (01:33→11:18)
[2017-01-25] MEDS: METOCLOPRAMIDE HCL INJECTION 10 MG/2 ML VIAL IVPB SCH ×2 (01:34→10:13)
[2017-01-25 07:32] LABS: BASOPHIL 0.4 % (0-2.0); MCH 26.4 pg (25.7-33.7); MCHC 32.7 g/dl (32.0-36.0); MEAN CELL VOLUME 80.6 fl (80-96); NEUTROPHILS 70.5 % (42.8-82.8); PLATELET COUNT 251 K/MM3 (134-434); RDW 20.2 % (11.6-15.6)
[2017-01-25 08:00] LABS: CALCIUM 8.2 mg/dL (8.5-10.1)
[2017-01-25 08:06] LABS: ALBUMIN 2.3 g/dl (3.4-5.0); ALK PHOS 25 U/L (45-117); ANION GAP 13 (8-16); BILIRUBIN,TOTAL 0.4 mg/dL (0.2-1.0); CO2 29 mmol/L (21-32); CREATININE 0.6 mg/dL (0.55-1.02); GLUCOSE,RANDOM 78 mg/dL (74-106); MAGNESIUM 1.7 mg/dL (1.8-2.4); PHOSPHOROUS 2.7 mg/dL (2.5-4.9); SGOT/AST 12 U/L (15-37); SGPT/ALT 12 U/L (12-78); TOT PROT 5.5 g/dl (6.4-8.2)
[2017-01-25 08:19] VITALS: BP 90/62; PULSE 88; TEMP 98.3
[2017-01-25] MEDS ORDERED: PANTOPRAZOLE 40 MG TABLET (FP) PO SCH (10:00)
[2017-01-25] MEDS: HEPARIN NA (PORCINE) 5,000 UNITS/ML 1ML VIAL SQ SCH (10:13)
[2017-01-25] MEDS: MAGNESIUM OXIDE 400 MG TABLET (FP) PO SCH (10:13)
[2017-01-25] MEDS: POLYETHYLENE GLYCOL 3350 119 GM BTL PO SCH (10:13)
[2017-01-25] MEDS: LIDOCAINE 5% TOPICAL PATCH TP SCH (10:13)
[2017-01-25] MEDS: BUDESONIDE/FORMETEROL FUMARATE 80/4.5 mcg INHALER IH SCH (10:14)
--- NOTE | 2017-01-25 10:27 | PN ---
Progress Note, Physician Chief Complaint: pt ate breakfast then vomited; had lunch did not vomit and asked to go home; advised to stay for another meal to see if she tolerates but did not want to; left AMA - Current Medication List Current Medications: Active Medications Acetaminophen (Tylenol -) 650 mg PO Q6H PRN PRN Reason: FEVER OR PAIN Albuterol Sulfate (Ventolin 0.083% Nebulizer Soln -) 1 amp NEB Q4H PRN PRN Reason: SHORT OF BREATH/WHEEZING Albuterol/Ipratropium (Duoneb -) 1 amp NEB BID [facility] Last Admin: 01/24/17 22:43 Dose: Not Given Budesonide/Formoterol Fumarate (Symbicort 80/4.5mcg -) 2 puff IH BID [facility] Last Admin: 01/25/17 10:14 Dose: 2 puff Heparin Sodium (Porcine) (Heparin -) 5,000 unit SQ BID [facility] Last Admin: 01/25/17 10:13 Dose: 5,000 unit Potassium Chloride 10 meq/ (Sodium Chloride) 1,005 mls @ 75 mls/hr IVPB Q13H [facility] Last Admin: 01/25/17 01:33 Dose: 75 mls/hr Lidocaine (Lidoderm Patch -) 2 patch TP DAILY [facility] Last Admin: 01/25/17 10:13 Dose: 2 patch Magnesium Oxide (Mag-Ox -) 400 mg PO DAILY [facility] Last Admin: 01/25/17 10:13 Dose: 400 mg Metoclopramide HCl (Reglan Injection -) 10 mg IVPB Q8H-IV [facility] Last Admin: 01/25/17 10:13 Dose: 10 mg Ondansetron HCl (Zofran Injection) 8 mg IVPB Q8H PRN PRN Reason: NAUSEA Last Admin: 01/23/17 08:22 Dose: 8 mg Pantoprazole Sodium (Protonix -) 40 mg PO DAILY [facility] Last Admin: 01/25/17 10:13 Dose: 40 mg Polyethylene Glycol (Miralax (For Daily Use) -) 17 gm PO BID [facility] Last Admin: 01/25/17 10:13 Dose: 17 gm - Objective Vital Signs: Vital Signs Temperature 98.3 F 01/25/17 08:18 Pulse Rate 88 01/25/17 08:18 Respiratory Rate 18 01/25/17 08:18 Blood Pressure 90/62 01/25/17 08:18 O2 Sat by Pulse Oximetry (%) 98 01/24/17 21:00 Constitutional: Yes: No Distress, Calm Eyes: Yes: Conjunctiva Clear HENT: Yes: Atraumatic Neck: Yes: Supple Cardiovascular: Yes: Regular Rate and Rhythm Respiratory: Yes: CTA Bilaterally Gastrointestinal: Yes: Soft. No: Distention, Tenderness Genitourinary: No: CVA Tenderness - Left, CVA Tenderness - Right Musculoskeletal: No: Joint Stiffness, Joint Swelling Extremities: No: Cold, Cool Edema: No Peripheral Pulses WNL: Yes Integumentary: No: Rash, Venous Stasis Changes Neurological: Yes: WNL, Alert, Oriented ...Motor Strength: WNL Psychiatric: Yes: WNL, Alert, Oriented. No: Agitated, Suicidal Ideation Labs: CBC, BMP 01/25/17 06:00 01/25/17 06:00 - ....Imaging Other: Report Reviewed Assessment/Plan The patient is a 51 year old female with significant past medical history of s/ p abdominal exploratory laparotomy (12/23/16), nonobstructive ashd and diastolic CHF, narcotics abuse, hyperlipidemia, COPD, asthma, scleroderma, gastroparesis, Raynaud's, multiple upper extremity digit amputations, and CREST syndrome admitted with SBO severe protein malnutrition advance diet as tolerated, GI f/u pt signed HCP form designated her sister Park as HCP wants to go home today will sign AMA
[2017-01-25] MEDS: ALBUTEROL SO4 2.5/IPRATROPIUM 0.5 INH SOL 3 ML VIAL.NEB. NEB SCH (10:43)
--- NOTE | 2017-01-25 11:24 | PN ---
Progress Note (short form) - Note Progress Note: Renal Follow up for PRASHANT Pt seen and examined at the bedside has some emesis this am denies abd pain, Nausea at this time Vital Signs Temperature 98.3 F 01/25/17 08:18 Pulse Rate 88 01/25/17 11:18 Respiratory Rate 18 01/25/17 08:18 Blood Pressure 90/62 01/25/17 08:18 O2 Sat by Pulse Oximetry (%) 98 01/25/17 11:18 Intake & Output 01/22/17 01/23/17 01/24/17 01/25/17 23:59 23:59 23:59 23:59 Intake Total 1900 2290 880 1340 Output Total 300 1150 Balance 1600 0902 730 7001 Gen: NAD CVS: RRR Lungs: CTA Abd: soft NT/ND Ext: No edema, clubbing or cyanosis CBC, BMP 01/25/17 06:00 01/25/17 06:00 Laboratory Tests 01/25/17 06:00 Calcium 8.2 L Phosphorus 2.7 D Magnesium 1.7 L D Albumin 2.3 L Current Medications Acetaminophen (Tylenol -) 650 mg PO Q6H PRN PRN Reason: FEVER OR PAIN Albuterol Sulfate (Ventolin 0.083% Nebulizer Soln -) 1 amp NEB Q4H PRN PRN Reason: SHORT OF BREATH/WHEEZING Albuterol/Ipratropium (Duoneb -) 1 amp NEB BID [facility] Last Admin: 01/25/17 10:43 Dose: Not Given Budesonide/Formoterol Fumarate (Symbicort 80/4.5mcg -) 2 puff IH BID [facility] Last Admin: 01/25/17 10:14 Dose: 2 puff Heparin Sodium (Porcine) (Heparin -) 5,000 unit SQ BID [facility] Last Admin: 01/25/17 10:13 Dose: 5,000 unit Potassium Chloride 10 meq/ (Sodium Chloride) 1,005 mls @ 75 mls/hr IVPB Q13H [facility] Last Admin: 01/25/17 11:18 Dose: 75 mls/hr Lidocaine (Lidoderm Patch -) 2 patch TP DAILY [facility] Last Admin: 01/25/17 10:13 Dose: 2 patch Magnesium Oxide (Mag-Ox -) 400 mg PO DAILY [facility] Last Admin: 01/25/17 10:13 Dose: 400 mg Metoclopramide HCl (Reglan Injection -) 10 mg IVPB Q8H-IV [facility] Last Admin: 01/25/17 10:13 Dose: 10 mg Ondansetron HCl (Zofran Injection) 8 mg IVPB Q8H PRN PRN Reason: NAUSEA Last Admin: 01/23/17 08:22 Dose: 8 mg Pantoprazole Sodium (Protonix -) 40 mg PO DAILY [facility] Last Admin: 01/25/17 10:13 Dose: 40 mg Polyethylene Glycol (Miralax (For Daily Use) -) 17 gm PO BID [facility] Last Admin: 01/25/17 10:13 Dose: 17 gm A/P 51 year old woman with PMhx of CHF, HLD, Asthma, Scleroderma, Raynauds, CREST presented with N/V and found to have PRASHANT #PRASHANT secondary to volume depletion in setting of N/V Renal function improved and stable pt tolerating oral diet can be off IVF #Hypophosphatemia PHos improved today continue oral diet as tolerated to repeat labs as an outpatient #Bowel obstruction/pseudoobsruction/N/V management as per primary Pt to follow up in the office on discharge for monitoring of renal function and electrolytes Thank you Srinivasan Tijerina DO
--- NOTE | 2017-01-25 21:08 | DS ---
Physical Examination Vital Signs: Vital Signs Temperature 98.3 F 01/25/17 08:18 Pulse Rate 88 01/25/17 11:18 Respiratory Rate 18 01/25/17 08:18 Blood Pressure 90/62 01/25/17 08:18 O2 Sat by Pulse Oximetry (%) 98 01/25/17 11:18 Findings/Remarks: signed out AMA see progress note today, PE also Labs: CBC, BMP 01/25/17 06:00 01/25/17 06:00 Discharge Summary Reason For Visit: SMALL BOWEL OBSTRUCTION SBO vomiting ARF dehydration; severe protein malnutrition Procedures: Principal: IVF NGT NPO Other Procedures: GI surgery, ID and renal evals Hospital Course: improved with IVF and IV ATB but persistent vomiting with po feeding; signed out AMA strongly advised to f.u with PCP GI and labs within 1 week of DC; RTER if recurrent vomiting; strongly advised to stop al controlled meds Condition: Guarded - Instructions Referrals: Eva Gonzalez [Primary Care Provider] - Disposition: AGAINST MEDICAL ADVICE - Home Medications Comprehensive Discharge Medication List: Ambulatory Orders Duloxetine HCl [Cymbalta -] 60 mg PO DAILY #30 capsule. 03/10/15 Albuterol 0.083% Nebulizer Cinthya [Ventolin 0.083% Nebulizer Soln -] 1 amp NEB Q4H PRN #1 amp 04/11/16 Aspirin [ASA -] 81 mg PO DAILY tab.chew 04/11/16 Budesonide/Formeterol Fumarate [SYMBICORT 80/4.5mcg -] 2 puff IH BID #1 inhaler 04/11/16 Ranitidine [Zantac -] 150 mg PO DAILY 05/27/16 Gabapentin [Neurontin -] 800 mg PO TID capsule 05/28/16 Aclidinium [place] [Tudorza -] 1 puff IH DAILY inhaler 07/20/16 Lactobacillus Acidophilus [Bacid -] 1 each PO DAILY #30 capsule 07/20/16 Metoclopramide HCl [Reglan -] 10 mg PO ACHS tablet 07/20/16 Acetaminophen [Tylenol .Regular Strength -] 650 mg PO Q6H PRN #0 tablet Hydroxychloroquine So4 [Plaquenil -] 200 mg PO BID tablet 07/31/16 Pantoprazole Sodium [Protonix -] 40 mg PO BID tablet.ec 07/31/16 Cyclobenzaprine HCl [Flexeril -] 5 mg PO BID PRN #20 tablet 09/16/16 Lidocaine 5% Patch [Lidoderm -] 2 patch TP DAILY #60 patch 09/16/16 Albuterol 2.5/Ipratropium 0.5 [Duoneb -] 1 amp NEB BID amp 12/17/16 Multivitamins [Multivit ([facility])] 1 tab PO DAILY tab 12/17/16 Magnesium Oxide [Mag-Ox -] 400 mg PO BID #30 tablet MDD 2 12/18/16 Potassium Chloride [K-Dur -] 20 meq PO DAILY #30 tab 12/18/16 Bisacodyl Suppository [Dulcolax Suppository -] 10 mg RC DAILY PRN #0 supp.rect 01/01/17 Cephalexin Monohydrate [Keflex -] 500 mg PO TID #15 cap 01/01/17 Metronidazole [Flagyl -] 500 mg PO TID #15 tablet 01/01/17 Polyethylene Glycol 3350 [Miralax 119 gm Btl -] 17 gm PO DAILY PRN #0 bottle Polyethylene Glycol 3350 [Miralax 255 gm Btl -] 17 gm PO DAILY bottle 01/01/17
== END 2017-01-25 14:00 | disposition left against medical advice (07) | DRG 388 ==
LOC: SUPCPDRO 19:49 → JER 19:49 → JERBED 01-17 05:59 → UNDOADMIN 01-17 06:26 → J7W 01-17 08:34
PROVIDERS: ADMIT Internal Medicine; ATTEND Internal Medicine
PROC: 0D9670Z Drainage of Stomach with Drainage Device, Via Natural or Artificial Opening (ICD-10-PCS; principal; 2017-01-16)
DX: K56.60 Unspecified intestinal obstruction (principal); E43 Unspecified severe protein-calorie malnutrition; N17.9 Acute kidney failure, unspecified; Z68.1 Body mass index [BMI] 19.9 or less, adult; I50.30 Unspecified diastolic (congestive) heart failure; L03.116 Cellulitis of left lower limb; I38 Endocarditis, valve unspecified; E87.1 Hypo-osmolality and hyponatremia; E86.0 Dehydration; I25.10 Atherosclerotic heart disease of native coronary artery without angina pectoris; J44.9 Chronic obstructive pulmonary disease, unspecified; I73.00 Raynaud's syndrome without gangrene; M34.1 CR(E)ST syndrome; E78.00 Pure hypercholesterolemia, unspecified; E03.9 Hypothyroidism, unspecified; Z98.61 Coronary angioplasty status; Z98.1 Arthrodesis status; Z87.891 Personal history of nicotine dependence; M34.9 Systemic sclerosis, unspecified; K31.84 Gastroparesis; K59.00 Constipation, unspecified; K31.819 Angiodysplasia of stomach and duodenum without bleeding; F11.10 Opioid abuse, uncomplicated; F12.10 Cannabis abuse, uncomplicated; K22.70 Barrett's esophagus without dysplasia; Z89.022 Acquired absence of left finger(s); Z89.021 Acquired absence of right finger(s); I73.9 Peripheral vascular disease, unspecified; E86.1 Hypovolemia; I95.9 Hypotension, unspecified; N18.9 Chronic kidney disease, unspecified; E83.42 Hypomagnesemia; E83.39 Other disorders of phosphorus metabolism
CPT/HCPCS: 36415; 71010-TC; 74020-TC; 74176-TC; 76775-TC; 80048; 80053; 80307; 81003; 81015; 83690; 83735; 84100; 84443; 84550; 84703; 85025; 85027; 85651; 87040; 87086; 93005; 93010; 94640; 99284-25; J1644

== ENCOUNTER 2017-02-07 16:45 | Inpatient (IN) | payer OTHER ==
[2017-02-07] MEDS ORDERED: NALOXONE HCL 0.4 MG/ML VIAL ONE ×2 (16:54→18:48)
--- NOTE | 2017-02-07 16:54 | PDOC ---
History of Present Illness - History of Present Illness Initial Comments: 02/07/17 17:51 Patient is a 52 year old female with significant medical hx of COPD, CHF, narcotic abuse, HLD, asthma, scleroderma, gastroparesis, Raynauds, CREST syndrome, hypothyroidism, chronic aspiration PNA with drug resistance, and s/p abdominal exploratory laparotomy (12/23/16) who is presenting to the ED for cyanosis, vomiting, and shortness of breath. Patient is accompanied by friends who states the patient has been having multiple episodes of nausea and vomiting throughout the night into today and complaining of lower abdominal pain. This morning the patient reportedly looked blue from head to toe with some color improvement as the day progressed. She was noted to be short of breath with low O2Sat by EMS upon arrival. Patient denies taking narcotics today. Denies fevers , chills, chest pain, dysuria, or diarrhea. 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) CVA: No COPD: Yes CHF: No Dementia: No Diabetes: No GI Disorders: Yes (REFLUX) Disorders: No HTN: No Hypercholesterolemia: Yes Liver Disease: No Seizures: No Thyroid Disease: Yes (HYPO.) - Surgical History Abdominal Surgery: Yes Appendectomy: Yes Cardiac Surgery: No Cholecystectomy: No Lung Surgery: No Neurologic Surgery: Yes (LS/RODS &BONE FUSIONS) Orthopedic Surgery: Yes (multiple back sx, hand sx,b/o hip) - Immunization History Immunization Up to Date: Yes - Psycho/Social/Smoking Cessation Hx Anxiety: No Suicidal Ideation: No Smoking Status: No Smoking History: Current every day smoker Have you smoked in the past 12 months: Yes Number of Cigarettes Smoked Daily: 10 If you are a former smoker, when did you quit?: 4 years ago 'Breaking Loose' booklet given: 09/12/16 Hx Alcohol Use: No Drug/Substance Use Hx: Yes Substance Use Type: Alcohol Hx Substance Use Treatment: Yes <Lex Garcia - Last Filed: 02/07/17 20:16> - Past Medical History Allergies/Adverse Reactions: Allergies Allergy/AdvReac Type Severity Reaction Status Date / Time Penicillins Allergy Severe Hives Verified 02/07/17 17:45 tomato AdvReac Uncoded 02/07/17 17:45 Home Medications: Ambulatory Orders Duloxetine HCl [Cymbalta -] 60 mg PO DAILY #30 capsule. 03/10/15 Albuterol 0.083% Nebulizer Cinthya [Ventolin 0.083% Nebulizer Soln -] 1 amp NEB Q4H PRN #1 amp 04/11/16 Aspirin [ASA -] 81 mg PO DAILY tab.chew 04/11/16 Budesonide/Formeterol Fumarate [SYMBICORT 80/4.5mcg -] 2 puff IH BID #1 inhaler 04/11/16 Ranitidine [Zantac -] 150 mg PO DAILY 05/27/16 Gabapentin [Neurontin -] 800 mg PO TID capsule 05/28/16 Aclidinium [place] [Tudorza -] 1 puff IH DAILY inhaler 07/20/16 Lactobacillus Acidophilus [Bacid -] 1 each PO DAILY #30 capsule 07/20/16 Metoclopramide HCl [Reglan -] 10 mg PO ACHS tablet 07/20/16 Acetaminophen [Tylenol .Regular Strength -] 650 mg PO Q6H PRN #0 tablet Hydroxychloroquine So4 [Plaquenil -] 200 mg PO BID tablet 07/31/16 Pantoprazole Sodium [Protonix -] 40 mg PO BID tablet.ec 07/31/16 Cyclobenzaprine HCl [Flexeril -] 5 mg PO BID PRN #20 tablet 09/16/16 Lidocaine 5% Patch [Lidoderm -] 2 patch TP DAILY #60 patch 09/16/16 Albuterol 2.5/Ipratropium 0.5 [Duoneb -] 1 amp NEB BID amp 12/17/16 Multivitamins [Multivit ([facility] Formul[facility])] 1 tab PO DAILY tab 12/17/16 Magnesium Oxide [Mag-Ox -] 400 mg PO BID #30 tablet MDD 2 12/18/16 Potassium Chloride [K-Dur -] 20 meq PO DAILY #30 tab 12/18/16 Bisacodyl Suppository [Dulcolax Suppository -] 10 mg RC DAILY PRN #0 supp.rect 01/01/17 Cephalexin Monohydrate [Keflex -] 500 mg PO TID #15 cap 01/01/17 Metronidazole [Flagyl -] 500 mg PO TID #15 tablet 01/01/17 Polyethylene Glycol 3350 [Miralax 119 gm Btl -] 17 gm PO DAILY PRN #0 bottle Polyethylene Glycol 3350 [Miralax 255 gm Btl -] 17 gm PO DAILY bottle 01/01/17 Review of Systems - Review of Systems Comments:: 02/07/17 17:52 CONSTITUTIONAL: Cyanosis. No fever, no chills, no fatigue EYES: No visual changes ENT: No ear pain, no sore throat CARDIOVASCULAR: No chest pain, no palpitations RESPIRATORY: SOB. No cough GI: Nausea, vomiting, lower abdominal pain. No constipation, no diarrhea GENITOURINARY: No dysuria, no frequency, no hematuria MUSKULOSKELETAL: No backpain, no joint pain, no myalgias SKIN: No rash NEURO: No headache <Miracle Watts - Last Filed: 02/07/17 19:52> *Physical Exam - Vital Signs Last Vital Signs Temp Pulse Resp BP Pulse Ox 96.5 F L 95 H 34 H 64/46 02/07/17 17:05 02/07/17 17:05 02/07/17 17:05 02/07/17 17:05 <Miracle Watts - Last Filed: 02/07/17 19:52> - Physical Exam Comments: 02/07/17 17:57 EXAMINATION CONSTITUTIONAL: A somnolent, arousable to verbal stimuli, frail-appearing, in mild distress HEAD: Normocephalic; atraumatic EYES: Pupils are 2 mm, round, reactive bilaterally; EOM intact ENMT: External appears normal; poor dentition; mucous membranes are dry NECK: Supple; non-tender; no cervical lymphadenopathy CARD: Normal S1, S2; no murmurs, rubs, or gallops RESP: Breath sounds are distant bilaterally; + intermittent rhonchi appreciated , most prominent at the bases; ABD: Soft, +distended; non-tender; no palpable organomegaly, no palpable hernias ; + well healed vertical epigastric scar is noted; EXT: Normal ROM in all four extremities; multiple digital amputations bilaterally; + extensive peripheral cyanosis is noted; distal pulses decreased in all 4 extremities SKIN: Warm, dry, no petechia NEURO: somnolent, arousable to verbal stimuli; moving all of 70 symmetrically; gait-deferred. <Lex Garcia - Last Filed: 02/07/17 20:16> Heart Score/ECG Review #1 02/07/17 17:54 Normal sinus rhythm at 95 bpm Possible Left atrial enlargement Prolonged QT Abnormal ECG <Miracle Watts - Last Filed: 02/07/17 19:52> ED Treatment Course - LABORATORY CBC & Chemistry Diagram: 02/07/17 17:20 02/07/17 17:20 - ADDITIONAL ORDERS Additional order review: Laboratory Results 02/07/17 17:20 Anticoagulation Therapy Y Puncture Site Md puncture ABG pH 7.18 L* D ABG pCO2 at Pt Temp 44.4 ABG pO2 at Pt Temp 29.6 L* ABG HCO3 16.0 L ABG O2 Sat (Measured) 31.5 L* ABG O2 Content 5.4 L* ABG Base Excess -11.7 L* Akash Test Not applicable O2 Delivery Device nasal cannula Oxygen Flow Rate 3l Vent Mode Y Vent Rate Y Mechanical Rate Y PEEP 0.0 Pressure Support Vent Y 02/07/17 17:20 RBC 4.50 MCV 84.5 MCHC 32.3 RDW 20.7 H MPV 9.4 Neutrophils % Y Lymphocytes % Y - RADIOLOGY Radiograph Interpretation: 02/07/17 18:07 Chest X-Ray Impression: COPD, no acute disease. Reported By: Lamin Finch MD 02/07/17 19:52 Abdomen/Pelvis CT Impression: Severely limited study with no gross evidence of bowel obstruction or acute pathology. Reported By: Lamin Finch MD <Miracle Watts - Last Filed: 02/07/17 19:52> - LABORATORY CBC & Chemistry Diagram: 02/07/17 17:20 02/07/17 17:20 <Lex Garcia - Last Filed: 02/07/17 20:16> Medical Decision Making - Medical Decision Making 02/07/17 18:37 Patient is a frail-appearing 52-year-old female with multiple comorbidities brought in by EMS after developing central cyanosis and the suffering numerous episodes of nonbloody, nonbilious vomiting for the past 24 hours prior to arrival. On initial evaluation, patient was noted to be somnolent but easily arousable, hypoventilating with a respiratory rate of 10, hypotensive with blood pressure of 64/40, with presence of peripheral but not central cyanosis. After administration of Narcan-0.4 mg IV, patient's mental status improved significantly, she was alert and awake, with respiratory rate of 20, and tidal CO2 was noted to be 17 at the time. IV fluid resuscitation was also initiated. I suspect dehydration and hypoventilation due to narcotic use. Aggressive IV fluid resuscitation was initiated immediately. Blood cultures were obtained CBC is within normal limit without evidence of significant leukocytosis. CMP reveals hyponatremia with sodium of 121, hypochloremia of 69, elevated BUN/ creatinine consistent with acute renal insufficiency likely prerenal in nature. Collier catheter was placed and the less than 50 mL of dark colored urine was obtained. ABG on arrival revealed acidosis with pH of 7.18 and base deficit of 11.3. Lactic acid was noted to be 11. Will continue to aggressively hydrate. We' ll consult ICU and renal. 02/07/17 19:12 Patient's blood pressure has improved to 87/62 after 1 L of normal saline. After period of observation, patient vomited a large amount of coffee ground emesis. We'll administer Zofran and Protonix. Will obtain noncontrast CT of abdomen and pelvis to evaluate for possible ileus. I do not suspect mesenteric ischemia at this time. Will continue to hydrate. We'll admit to the ICU. 02/07/17 20:15 Patient reassessed. Patient is resting comfortably and is currently symptom- free. Blood pressure is noted to be 90/62. CT of abdomen and pelvis reveals air and fluid-filled loops of small and large bowel without evidence of small bowel obstruction. I suspect ileus at this time. Will continue to hydrate. Urine output is noted to be at 200 mL of dark urine at this time. Case discussed with Dr. Tijerina of renal and Dr. Almonte of critical care. They agree with plan of care. Awaiting transfer to the ICU. <Lex Garcia - Last Filed: 02/07/17 20:16> *DC/Admit/Observation/Transfer - Attestations Scribe Attestion: 02/07/17 17:55 Documentation prepared by Miracle Watts, acting as medical cost consultant for Lex Garcia MD. <Miracle Watts - Last Filed: 02/07/17 19:52> - Discharge Dispostion Admit: Yes - Attestations Physician Attestion: 02/07/17 18:38 The documentation was prepared by the scribe under my direct supervision. I have reviewed the documentation which correctly represents the findings, medical decision-making and critical action taken by me. <Lex Garcia - Last Filed: 02/07/17 20:16> Diagnosis at time of Disposition: CREST variant of scleroderma, Opioid dependence, uncomplicated, Hyponatremia, Dehydration Acute renal failure Qualifiers: Acute renal failure type: unspecified Qualified Code(s): N17.9 - Acute kidney failure, unspecified - Referrals
[2017-02-07] MEDS ORDERED: SODIUM CHLORIDE 0.9% 1000 ML INFUS.BAG IV PRN (17:16)
[2017-02-07 17:36] LABS: MCH 27.3 pg (25.7-33.7); MCHC 32.3 g/dl (32.0-36.0); MEAN CELL VOLUME 84.5 fl (80-96); MEAN PLT VOLUME 9.4 fl (7.5-11.1); PLATELET COUNT 472 K/MM3 (134-434); RDW 20.7 % (11.6-15.6); WHITE BLOOD COUNT 10.5 K/mm3 (4.0-10.0)
[2017-02-07 17:38] LABS: ARTERIAL BLD GAS O2 SATURATION 31.5 % (90-98.9); ARTERIAL BLOOD GAS BASE EXCESS -11.7 meq/l (-2-2); ARTERIAL BLOOD GAS pH 7.18 (7.35-7.45)
[2017-02-07 17:39] LABS: LPM/O2% 3L; PT. ON O2? yes; TYPE OF O2 nasal cannula
[2017-02-07 17:41] LABS: ARTERIAL BLOOD GAS PO2 29.6 mmHg (80-100)
[2017-02-07] MEDS ORDERED: ONDANSETRON 4 MG/2 ML VIAL ONE (17:46)
[2017-02-07 17:54] LABS: INR 1.03 (0.82-1.09); PROTHROMBIN TIME (PATIENT) 11.3 SEC (9.98-11.88)
[2017-02-07] MEDS ORDERED: ONDANSETRON 4 MG/2 ML VIAL IVPB ONE (18:01)
[2017-02-07 18:10] LABS: ALBUMIN 3.3 g/dl (3.4-5.0); ANION GAP 37 (8-16); BILIRUBIN,TOTAL 0.4 mg/dL (0.2-1.0); CALCIUM 9.1 mg/dL (8.5-10.1); CO2 15 mmol/L (21-32); COCKROFT - GAULT 9.6135; CREATININE 4.6 mg/dL (0.55-1.02); GLUCOSE,RANDOM 215 mg/dL (74-106); SGOT/AST 15 U/L (15-37); SGPT/ALT 21 U/L (12-78); TOT PROT 8.4 g/dl (6.4-8.2)
[2017-02-07 18:12] LABS: ALK PHOS 51 U/L (45-117)
[2017-02-07 18:22] LABS: ANISOCYTOSIS 2+; MICROCYTOSIS 1+; PLATELET ESTIMATE INCREASED (NORMAL)
[2017-02-07 18:24] LABS: TROPONIN I < 0.02 ng/ml (0.00-0.05)
[2017-02-07 18:48] LABS: URINE APPEARANCE CLEAR; URINE BLOOD NEGATIVE (NEGATIVE); URINE COLOR DKYELLOW; URINE GLUCOSE (UA) NEGATIVE (NEGATIVE); URINE KETONE NEGATIVE (NEGATIVE); URINE LEUK ESTERASE NEGATIVE (NEGATIVE); URINE NITRITE NEGATIVE (NEGATIVE); URINE UROBILINOGEN NEGATIVE E.U./dl (0.2-1.0)
[2017-02-07] MEDS ORDERED: SODIUM CHLORIDE 1,000 ML IV STA ×2 (18:48→20:56)
[2017-02-07 18:59] LABS: URINE PROTEIN 1+ (NEGATIVE)
[2017-02-07 19:00] LABS: URINE BACTERIA RARE /hpf (NONE SEEN); URINE HYALINE CAST 40 /lpf; URINE MUCUS RARE; URINE RBC 6 /hpf (0-3); URINE WBC 1 /hpf (3-5)
[2017-02-07 19:03] LABS: URINE MARIJUANA THC NEGATIVE ng/ml (CUTOFF=50)
[2017-02-07] MEDS ORDERED: NALOXONE HCL 0.4 MG/ML VIAL IVPUSH ONE ×2 (19:03)
[2017-02-07] MEDS ORDERED: PIPERACILLIN/TAZOB 3.375 GM 3.375 GM in DEXTROSE 5%-WATER - 50 ML IVPB SCH (20:45)
[2017-02-07 20:55] LABS: ARTERIAL BLD GAS O2 SATURATION 93.4 % (90-98.9); ARTERIAL BLOOD GAS BASE EXCESS -7.6 meq/l (-2-2); ARTERIAL BLOOD GAS HCO3 17.5 meq/L (22-26); ARTERIAL BLOOD GAS PO2 82.4 mmHg (80-100)
[2017-02-07 20:56] LABS: ARTERIAL BLOOD GAS pH 7.31 (7.35-7.45); LPM/O2% 3L; PT. ON O2? yes; TYPE OF O2 NASAL
[2017-02-07 20:57] VITALS: BMI 14.8
[2017-02-07] MEDS ORDERED: AZTREONAM 1 GM in DEXTROSE 5%-WATER - 50 ML IVPB SCH (21:00)
[2017-02-07 21:06] LABS: MCH 27.3 pg (25.7-33.7); MCHC 32.7 g/dl (32.0-36.0); MEAN CELL VOLUME 83.4 fl (80-96); MEAN PLT VOLUME 8.9 fl (7.5-11.1); PLATELET COUNT 341 K/MM3 (134-434); RDW 20.4 % (11.6-15.6); WHITE BLOOD COUNT 8.8 K/mm3 (4.0-10.0)
[2017-02-07] MEDS ORDERED: VANCOMYCIN 500 MG in DEXTROSE 5%-WATER - 100 ML IVPB ONE (21:15)
[2017-02-07] MEDS: SODIUM CHLORIDE 1,000 ML IV SCH (21:18)
--- NOTE | 2017-02-07 21:47 | CONSULT ---
Consult Consult Specialty:: Pulm/CCM Reason for Consultation:: metabolic dysarray, lactic acidosis, PRASHANT - History of Present Illness Chief Complaint: nausea, vomiting History of Present Illness: This is 52 yo woman with MMP included but not limited to: COPD, scleroderma, raynauds s/p digit amputations, CREST syndrome with gastric dysmotility, chronic back pain s/p multiple surgeries on chronic opioids with multiple admission over the last six months most recently admitted after pneumoperitoneum seen on abdominal imaging undergoing ex-lap for though no defect found during surgery she left AMA ~2 weeks ago. She was at home in her usual state of poor health when she developed progressive SOB, nausea and vomiting over the last 48hrs. Per the patient she denies: SHANKAR, CP, fever, chills , sick contacts. In the ED patient lethargic. She was given narcan x2 with some improvement. Labs significant for PRASHANT (SCr/BUN: 4.6/85), severe lactic acidosis pH 7.11, lactate 11.4, leukocytosis (wbc: 10.5 w/ 14% bands), and hyponatremia (Na: 121). UTOX (+) opioids. CTAP w/ evidence of acute pathology. CXR with known COPD changes no infiltrate. In the ICU patient awake and alert. BP stable: 110/60. Labs resent: ABG 7.31/36/ 82 on NC 3lpm. 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 Normal coronaries on cardiac cath and EF 65% with mild AI, trace MR and [place] [facility] [place] Pulmonary: Yes: Asthma, COPD, Pneumonia, Other (lung mass of undetermined etiology) Gastrointestinal: Yes: Constipation, Diverticulitis, Diverticulosis (small bowel diverticular perforation, scleroderma affecting the esophagus, Bonner's esophagus, Schatzki ring,GAVE syndrome, antral ulcer, gastroparesis related to scleroderma), GERD (with long segment Bonner's esophagus and patent Schatzki ring), Peptic Ulcer Disease (antral ulcer ), Other (Bonner's esophagus, GERD, Schatzki ring, perforation of small bowel diverticulum, antral ulcer, scleroderma causing esophageal dysmotility and gastroparesis, GERD with long segment Bonner's esophagus,Schatzki ring,GAVE syndrome) Renal/: Yes: Renal Failure ...LMP Comment: Unknown Infectious Disease: Yes: MRSA (bursitis) Psych: Yes: Addictions (marijuana,tobacco and prescription narcotics) Musculoskeletal: Yes: Chronic low back pain, Other (has spinal stimulator) Rheumatology: Yes: Vasculitis, Other (Scleroderma, Raynauds and CREST syndrome) Endocrine: Yes: Hypothyroidism, Other (Malnutrition, osteoporosis) Dermatology: Yes: Cellulitis - Past Surgical History Past Surgical History: Yes: Appendectomy, Colonoscopy, Upper Endoscopy - Alcohol/Substance Use Hx Alcohol Use: No History of Substance Use: reports: Marijuana, Prescription - Smoking History Smoking history: Current every day smoker Have you smoked in the past 12 months: Yes Aproximately how many cigarettes per day: 10 If you are a former smoker, when did you quit?: 4 years ago - Social History Usual Living Arrangement: With Parent ADL: Independent Occupation: disabled History of Recent Travel: No Home Medications - Allergies Allergies/Adverse Reactions: Allergies Allergy/AdvReac Type Severity Reaction Status Date / Time Penicillins Allergy Severe Hives Verified 02/07/17 17:45 tomato AdvReac Uncoded 02/07/17 17:45 - Home Medications Home Medications: Ambulatory Orders Duloxetine HCl [Cymbalta -] 60 mg PO DAILY #30 capsule. 03/10/15 Albuterol 0.083% Nebulizer Cinthya [Ventolin 0.083% Nebulizer Soln -] 1 amp NEB Q4H PRN #1 amp 04/11/16 Aspirin [ASA -] 81 mg PO DAILY tab.chew 04/11/16 Budesonide/Formeterol Fumarate [SYMBICORT 80/4.5mcg -] 2 puff IH BID #1 inhaler 04/11/16 Ranitidine [Zantac -] 150 mg PO DAILY 05/27/16 Gabapentin [Neurontin -] 800 mg PO TID capsule 05/28/16 Aclidinium [place] [Tudorza -] 1 puff IH DAILY inhaler 07/20/16 Lactobacillus Acidophilus [Bacid -] 1 each PO DAILY #30 capsule 07/20/16 Metoclopramide HCl [Reglan -] 10 mg PO ACHS tablet 07/20/16 Acetaminophen [Tylenol .Regular Strength -] 650 mg PO Q6H PRN #0 tablet Hydroxychloroquine So4 [Plaquenil -] 200 mg PO BID tablet 07/31/16 Pantoprazole Sodium [Protonix -] 40 mg PO BID tablet.ec 07/31/16 Cyclobenzaprine HCl [Flexeril -] 5 mg PO BID PRN #20 tablet 09/16/16 Lidocaine 5% Patch [Lidoderm -] 2 patch TP DAILY #60 patch 09/16/16 Albuterol 2.5/Ipratropium 0.5 [Duoneb -] 1 amp NEB BID amp 12/17/16 Multivitamins [Multivit ([facility] Form[facility])] 1 tab PO DAILY tab 12/17/16 Magnesium Oxide [Mag-Ox -] 400 mg PO BID #30 tablet MDD 2 12/18/16 Potassium Chloride [K-Dur -] 20 meq PO DAILY #30 tab 12/18/16 Bisacodyl Suppository [Dulcolax Suppository -] 10 mg RC DAILY PRN #0 supp.rect 01/01/17 Cephalexin Monohydrate [Keflex -] 500 mg PO TID #15 cap 01/01/17 Metronidazole [Flagyl -] 500 mg PO TID #15 tablet 01/01/17 Polyethylene Glycol 3350 [Miralax 119 gm Btl -] 17 gm PO DAILY PRN #0 bottle Polyethylene Glycol 3350 [Miralax 255 gm Btl -] 17 gm PO DAILY bottle 01/01/17 Family Disease History - Family Disease History Family History: Unable to Obtain Family Disease History: Diabetes: Father (HCV), Heart Disease: Father, Mother, Other: Father, Brother (HIV) Review of Systems - Review of Systems Constitutional: reports: Loss of Appetite, Weakness Respiratory: reports: SOB Gastrointestinal: reports: Nausea, Vomiting Physical Exam Vital Signs: Vital Signs Temperature 98.0 F 02/07/17 20:02 Pulse Rate 81 02/07/17 20:02 Respiratory Rate 20 02/07/17 20:02 Blood Pressure 90/62 02/07/17 20:02 O2 Sat by Pulse Oximetry (%) 92 L 02/07/17 20:02 Current Medications Sodium Chloride (Normal Saline -) 1,000 mls @ 100 mls/hr IV ASDIR RAISSA Last Admin: 02/07/17 21:18 Dose: 100 mls/hr Aztreonam 1 gm/ Dextrose 50 mls @ 100 mls/hr IVPB Q12H RAISSA PRN Reason: Protocol Metronidazole (Flagyl 500mg Premixed Ivpb -) 100 mls @ 100 mls/hr IVPB BID RAISSA Last Admin: 02/07/17 21:16 Dose: 100 mls/hr Vancomycin HCl 500 mg/ (Dextrose) 100 mls @ 100 mls/hr IVPB ONCE ONE PRN Reason: Protocol Stop: 02/07/17 22:14 Sodium Chloride (Normal Saline -) 1,000 mls @ 1,000 mls/hr IV ASDIR STA Stop: 02/07/17 21:55 Last Admin: 02/07/17 21:17 Dose: 1,000 mls/hr Aztreonam 1 gm/ Dextrose 50 mls @ 100 mls/hr IVPB ONCE ONE PRN Reason: Protocol Stop: 02/07/17 22:29 Constitutional: Yes: Cachectic Eyes: Yes: PERRL Cardiovascular: Yes: Regular Rate and Rhythm, S1, S2 Respiratory: Yes: Diminished Gastrointestinal: Yes: Normal Bowel Sounds, Soft, Distention (non tender to palp ), Hypoactive Bowel Sounds Extremities: Yes: Cool, Cyanosis Edema: No Integumentary: Yes: Pressure Ulcer (10x 10 stage 2 sacral), Venous Stasis Changes Neurological: Yes: Alert Labs: ABG Results ABG pH 7.31 (7.35-7.45) L 02/07/17 20:52 ABG pCO2 at Pt Temp 35.8 mmHg (35-45) 02/07/17 20:52 ABG pO2 at Pt Temp 82.4 mmHg (80-100) D 02/07/17 20:52 ABG HCO3 17.5 meq/L (22-26) L 02/07/17 20:52 ABG O2 Sat (Measured) 93.4 % (90-98.9) 02/07/17 20:52 ABG O2 Content 14.1 % vol (15-22) L 02/07/17 20:52 ABG Base Excess -7.6 meq/l (-2-2) L 02/07/17 20:52 CBCD WBC 8.8 K/mm3 (4.0-10.0) 02/07/17 20:56 RBC 3.94 M/mm3 (3.60-5.2) 02/07/17 20:56 Hgb 10.8 GM/dL (10.7-15.3) D 02/07/17 20:56 Hct 32.9 % (32.4-45.2) 02/07/17 20:56 MCV 83.4 fl (80-96) 02/07/17 20:56 MCHC 32.7 g/dl (32.0-36.0) 02/07/17 20:56 RDW 20.4 % (11.6-15.6) H 02/07/17 20:56 Plt Count 341 K/MM3 (134-434) D 02/07/17 20:56 MPV 8.9 fl (7.5-11.1) 02/07/17 20:56 CMP Sodium 121 mmol/L (136-145) L* D 02/07/17 17:20 Potassium 3.9 mmol/L (3.5-5.1) 02/07/17 17:20 Chloride 69 mmol/L (98-107) L D 02/07/17 17:20 Carbon Dioxide 15 mmol/L (21-32) L D 02/07/17 17:20 Anion Gap 37 (8-16) H 02/07/17 17:20 BUN 85 mg/dL (7-18) H D 02/07/17 17:20 Creatinine 4.6 mg/dL (0.55-1.02) H D 02/07/17 17:20 Creat Clearance w eGFR 9.97 (>60) 02/07/17 17:20 Random Glucose 215 mg/dL (74-106) H D 02/07/17 17:20 Calcium 9.1 mg/dL (8.5-10.1) 02/07/17 17:20 Total Bilirubin 0.4 mg/dL (0.2-1.0) 02/07/17 17:20 AST 15 U/L (15-37) D 02/07/17 17:20 ALT 21 U/L (12-78) D 02/07/17 17:20 Alkaline Phosphatase 51 U/L (45-117) D 02/07/17 17:20 Total Protein 8.4 g/dl (6.4-8.2) H D 02/07/17 17:20 Albumin 3.3 g/dl (3.4-5.0) L D 02/07/17 17:20 CARDIAC ENZYMES Creatine Kinase 41 IU/L (26-192) 02/07/17 17:20 Troponin I < 0.02 ng/ml (0.00-0.05) 02/07/17 17:20 Laboratory Tests 02/07/17 02/07/17 02/07/17 17:20 17:20 17:20 Band Neutrophils 14.0 H D ABG pH 7.18 L* D Lactic Acid 11.4 H* Opiates Screen 02/07/17 18:39 Band Neutrophils ABG pH Lactic Acid Opiates Screen Positive Imaging - Results Chest X-ray: Report Reviewed, Image Reviewed Cat Scan: Report Reviewed, Image Reviewed Problem List - Problems (1) Acute renal failure Code(s): N17.9 - ACUTE KIDNEY FAILURE, UNSPECIFIED Qualifiers: Acute renal failure type: unspecified Qualified Code(s): N17.9 - Acute kidney failure, unspecified (2) CREST variant of scleroderma Code(s): M34.1 - CR(E)ST SYNDROME (3) Dehydration Code(s): E86.0 - DEHYDRATION (4) Hyponatremia Code(s): E87.1 - HYPO-OSMOLALITY AND HYPONATREMIA (5) Opioid dependence, uncomplicated Code(s): F11.20 - OPIOID DEPENDENCE, UNCOMPLICATED (6) Abdominal pain Code(s): R10.9 - UNSPECIFIED ABDOMINAL PAIN (7) COPD (chronic obstructive pulmonary disease) Code(s): J44.9 - CHRONIC OBSTRUCTIVE PULMONARY DISEASE, UNSPECIFIED (8) Lactic acidosis Code(s): E87.2 - ACIDOSIS (9) Raynauds disease Code(s): I73.00 - RAYNAUD'S SYNDROME WITHOUT GANGRENE (10) Sepsis Code(s): A41.9 - SEPSIS, UNSPECIFIED ORGANISM (11) Vomiting Code(s): R11.10 - VOMITING, UNSPECIFIED Assessment/Plan a/p: 52 yo woman MMP: COPD, scleroderma, raynauds s/p digit amputations, CREST syndrome with gastric dysmotility, chronic back pain s/p multiple surgeries on chronic opioids with hyponatremia, lactic acidosis, PRASHANT, leukocytosis w/ bandemia c/f abdominal sepsis vs opioid overdose c/b dehydration -check amylase/lipase to r/o pancreatitis -O2 for sat >90% -IV fluids -sodium correction goal Na 130 in next 24hrs -renal dose medications -lew -cultures: blood urine -empiric ABX: aztreonam, flagyl and vanco. Patient with h/o ESBL E. coli and klebs pna UTIs in past, resistant to cefepime and levaquin -ID consult in AM -avoid excess opioids -trend lactate -consider palliative care consult for chronic opioid management and end of life discussions given ~15 admissions over last 6 months Lenny العراقيP Pulm/CCM CCT: 45m
[2017-02-07 21:54] LABS: AMYLASE 10 U/L (25-115)
[2017-02-07 21:56] LABS: ALBUMIN 2.8 g/dl (3.4-5.0); CALCIUM 7.5 mg/dL (8.5-10.1); COCKROFT - GAULT 10.1915; CREATININE 3.7 mg/dL (0.55-1.02)
[2017-02-07 21:57] LABS: BILIRUBIN,TOTAL 0.3 mg/dL (0.2-1.0); TOT PROT 6.9 g/dl (6.4-8.2)
[2017-02-07] MEDS ORDERED: AZTREONAM 1 GM in DEXTROSE 5%-WATER - 50 ML IVPB ONE (22:00)
[2017-02-07] MEDS ORDERED: METRONIDAZOLE 500 MG PREMIXED 100 ML IVPB SCH (22:00)
--- NOTE | 2017-02-07 22:22 | HP ---
Admitting History and Physical - Primary Care Physician PCP: Venkat Gonzalez - Admission Chief Complaint: Cyanosis. Vomiting. Weakness. Sluggishness History of Present Illness: Pt. was brought in by EMS ( her girlfriend called EMS) after pt. was noticed to become weak, sluggish and cyanotic after started to vomit since last night, multiple times. Pt states that was able to eat and vomited nonbloody, non- bilious liqiud material. 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 Normal coronaries on cardiac cath and EF 65% with mild AI, trace MR and TR on echo @ [facility] 03/31) Pulmonary: Yes: Asthma, COPD, Pneumonia, Other (lung mass of undetermined etiology) Gastrointestinal: Yes: Constipation, Diverticulitis, Diverticulosis (small bowel diverticular perforation, scleroderma affecting the esophagus, Bonner's esophagus, Schatzki ring,GAVE syndrome, antral ulcer, gastroparesis related to scleroderma), GERD (with long segment Bonner's esophagus and patent Schatzki ring), Peptic Ulcer Disease (antral ulcer ), Other (Bonner's esophagus, GERD, Schatzki ring, perforation of small bowel diverticulum, antral ulcer, scleroderma causing esophageal dysmotility and gastroparesis, GERD with long segment Bonner's esophagus,Schatzki ring,GAVE syndrome) Renal/: Yes: Renal Failure ...LMP Comment: Unknown Heme/Onc: Yes: Anemia Infectious Disease: Yes: MRSA (bursitis) Musculoskeletal: Yes: Chronic low back pain, Other (has spinal stimulator) Rheumatology: Yes: Vasculitis, Other (Scleroderma, Raynauds and CREST syndrome) Endocrine: Yes: Hypothyroidism, Other (Malnutrition, osteoporosis) Dermatology: Yes: Cellulitis - Past Surgical History Past Surgical History: Yes: Appendectomy, Colonoscopy, Upper Endoscopy Additional Past Surgical History: Exploratory Laparoscopy (for R/O abd. viscus perforation) - Smoking History Smoking history: Current every day smoker Have you smoked in the past 12 months: Yes Aproximately how many cigarettes per day: 10 If you are a former smoker, when did you quit?: 4 years ago - Alcohol/Substance Use Hx Alcohol Use: No History of Substance Use: reports: Marijuana, Prescription - Social History ADL: Independent Occupation: disabled History of Recent Travel: No Home Medications - Allergies Allergies/Adverse Reactions: Allergies Allergy/AdvReac Type Severity Reaction Status Date / Time Penicillins Allergy Severe Hives Verified 02/07/17 17:45 tomato AdvReac Uncoded 02/07/17 17:45 - Home Medications Home Medications: Ambulatory Orders Duloxetine HCl [Cymbalta -] 60 mg PO DAILY #30 capsule. 03/10/15 Albuterol 0.083% Nebulizer Cinthya [Ventolin 0.083% Nebulizer Soln -] 1 amp NEB Q4H PRN #1 amp 04/11/16 Aspirin [ASA -] 81 mg PO DAILY tab.chew 04/11/16 Budesonide/Formeterol Fumarate [SYMBICORT 80/4.5mcg -] 2 puff IH BID #1 inhaler 04/11/16 Ranitidine [Zantac -] 150 mg PO DAILY 05/27/16 Gabapentin [Neurontin -] 800 mg PO TID capsule 05/28/16 Aclidinium Abbott [Tudorza -] 1 puff IH DAILY inhaler 07/20/16 Lactobacillus Acidophilus [Bacid -] 1 each PO DAILY #30 capsule 07/20/16 Metoclopramide HCl [Reglan -] 10 mg PO ACHS tablet 07/20/16 Acetaminophen [Tylenol .Regular Strength -] 650 mg PO Q6H PRN #0 tablet Hydroxychloroquine So4 [Plaquenil -] 200 mg PO BID tablet 07/31/16 Pantoprazole Sodium [Protonix -] 40 mg PO BID tablet.ec 07/31/16 Cyclobenzaprine HCl [Flexeril -] 5 mg PO BID PRN #20 tablet 09/16/16 Lidocaine 5% Patch [Lidoderm -] 2 patch TP DAILY #60 patch 09/16/16 Albuterol 2.5/Ipratropium 0.5 [Duoneb -] 1 amp NEB BID amp 12/17/16 Multivitamins [Multivit ([facility] Formulary)] 1 tab PO DAILY tab 12/17/16 Magnesium Oxide [Mag-Ox -] 400 mg PO BID #30 tablet MDD 2 12/18/16 Potassium Chloride [K-Dur -] 20 meq PO DAILY #30 tab 12/18/16 Bisacodyl Suppository [Dulcolax Suppository -] 10 mg RC DAILY PRN #0 supp.rect 01/01/17 Cephalexin Monohydrate [Keflex -] 500 mg PO TID #15 cap 01/01/17 Metronidazole [Flagyl -] 500 mg PO TID #15 tablet 01/01/17 Polyethylene Glycol 3350 [Miralax 119 gm Btl -] 17 gm PO DAILY PRN #0 bottle Polyethylene Glycol 3350 [Miralax 255 gm Btl -] 17 gm PO DAILY bottle 01/01/17 Family Disease History - Family Disease History Family Disease History: Diabetes: Father (HCV), Heart Disease: Father, Mother, Other: Father, Brother (HIV) Review of Systems - Review of Systems Constitutional: reports: Weakness (improved since received tratment in ER). denies: Chills, Fever Eyes: denies: Blurred Vision, Double Vision, Recent Change in Vision HENT: denies: Difficult Swallowing, Ear Discharge, Ear Pain, Epistaxis, Nasal Congestion, Throat Pain Neck: denies: Decreased ROM, Pain on Movement, Stiffness Cardiovascular: denies: Chest Pain, Edema, Palpitations, Shortness of Breath Respiratory: denies: Cough, Hemoptysis, SOB, SOB on Exertion, Wheezing Gastrointestinal: reports: Diarrhea, Nausea, Vomiting. denies: Abdominal Pain, Rectal Bleeding, Vomiting Blood Genitourinary: denies: Burning, Discharge, Dysuria, Flank Pain, Frequency Musculoskeletal: reports: Back Pain (chronic, not worse) Integumentary: denies: Bruising, Eczema, Rash Neurological: denies: Change in LOC, Change in Speech, Incoordination, Numbness , Parasthesia, Syncope Endocrine: denies: Excessive Sweating, Intolerance to Cold Hematology/Lymphatic: denies: Easily Bruised, Excessive Bleeding Psychiatric: denies: Altered Sleep Pattern, Anxiety, Depression Physical Examination Vital Signs: Vital Signs Temperature 98.0 F 02/07/17 20:02 Pulse Rate 85 02/07/17 22:00 Respiratory Rate 11 L 02/07/17 22:00 Blood Pressure 82/62 02/07/17 22:00 O2 Sat by Pulse Oximetry (%) 92 L 02/07/17 20:02 Constitutional: Yes: No Distress, Calm (laying in bed in ICU) Eyes: Yes: Conjunctiva Clear, EOM Intact, PERRL HENT: Yes: Normocephalic. No: Epistaxis, Pharyngeal Erythema, Rhinnorhea Neck: Yes: Trachea Midline. No: Lymphadenopathy Cardiovascular: Yes: Regular Rate and Rhythm, S1, S2 Respiratory: Yes: Regular, Rhonchi (at bases, left > right) Gastrointestinal: Yes: Normal Bowel Sounds, Soft, Abdomen, Obese. No: Hyperactive Bowel Sounds, Palpable Mass, Tenderness, Tenderness, Epigastrium, Tenderness, Rebound ...Rectal Exam: Yes: Deferred Renal/: Yes: Other (deferred) Edema: No Integumentary: No: Erythema, Rash Neurological: Yes: Alert, Oriented, Cran Nerves II-XII Intact. No: Dysarthria Psychiatric: Yes: Alert, Oriented. No: Agitated Labs: CBC, BMP 02/07/17 20:56 02/07/17 20:56 earlier labs were reviewed Imaging - Results Chest X-ray: Report Reviewed Cat Scan: Report Reviewed Problem List - Problems (1) Vomiting Code(s): R11.10 - VOMITING, UNSPECIFIED (2) Dehydration Code(s): E86.0 - DEHYDRATION (3) Acute renal failure Code(s): N17.9 - ACUTE KIDNEY FAILURE, UNSPECIFIED Qualifiers: Acute renal failure type: unspecified Qualified Code(s): N17.9 - Acute kidney failure, unspecified (4) Hyponatremia Code(s): E87.1 - HYPO-OSMOLALITY AND HYPONATREMIA (5) Leukocytosis Code(s): D72.829 - ELEVATED WHITE BLOOD CELL COUNT, UNSPECIFIED (6) Bandemia Code(s): D72.825 - BANDEMIA (7) Acidosis Code(s): E87.2 - ACIDOSIS (8) Lactic acidosis Code(s): E87.2 - ACIDOSIS (9) CREST variant of scleroderma Code(s): M34.1 - CR(E)ST SYNDROME (10) COPD (chronic obstructive pulmonary disease) Code(s): J44.9 - CHRONIC OBSTRUCTIVE PULMONARY DISEASE, UNSPECIFIED (11) Chronic back pain Code(s): M54.9 - DORSALGIA, UNSPECIFIED G89.29 - OTHER CHRONIC PAIN (12) Hypokalemia Code(s): E87.6 - HYPOKALEMIA Assessment/Plan IVF Empiric IV abtx Admit to ICU- 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 Zofran PRN GI prophylaxis with PPI DVT prophylaxis AM labs CCM consult Consider Renal, GI consults To monitor electrolytes, lactic acid, CBC in AM. To monitor fever curve Time spent for managing pt: over 80 minutes
[2017-02-07] MEDS ORDERED: ONDANSETRON 4 MG/2 ML VIAL IVPB PRN (23:04)
[2017-02-08] MEDS: KCL 10 MEQ IVPB 100 ML IVPB SCH ×4 (00:05→03:14)
[2017-02-08] MEDS: POTASSIUM CHLORIDE TABS 20 MEQ TABLET.ER (FP) PO SCH ×2 (00:29→11:04)
[2017-02-08 06:38] LABS: MCH 27.8 pg (25.7-33.7); MCHC 33.6 g/dl (32.0-36.0); MEAN CELL VOLUME 82.8 fl (80-96); MEAN PLT VOLUME 8.8 fl (7.5-11.1); PLATELET COUNT 339 K/MM3 (134-434); RDW 20.6 % (11.6-15.6); WHITE BLOOD COUNT 9.7 K/mm3 (4.0-10.0)
[2017-02-08 07:04] LABS: ALBUMIN 2.6 g/dl (3.4-5.0); BILIRUBIN,DIRECT 0.1 mg/dL (0.0-0.2); BILIRUBIN,TOTAL 0.3 mg/dL (0.2-1.0); CREATININE 2.9 mg/dL (0.55-1.02); MAGNESIUM 2.1 mg/dL (1.8-2.4); TOT PROT 6.7 g/dl (6.4-8.2)
--- NOTE | 2017-02-08 07:32 | PN ---
Progress Note, Physician Chief Complaint: ID Alert NAD and full consultation dictated Denies abd pain SOB and asking for something to eat or drink Says not using opiates but toxicology positive - Current Medication List Current Medications: Active Medications Sodium Chloride (Normal Saline -) 1,000 mls @ 100 mls/hr IV ASDIR [facility] Last Admin: 02/07/17 21:18 Dose: 100 mls/hr Aztreonam 1 gm/ Dextrose 50 mls @ 100 mls/hr IVPB Q12H RAISSA PRN Reason: Protocol Metronidazole (Flagyl 500mg Premixed Ivpb -) 100 mls @ 100 mls/hr IVPB BID RAISSA Last Admin: 02/07/17 21:16 Dose: 100 mls/hr Ondansetron HCl (Zofran Injection) 4 mg IVPB Q8H PRN PRN Reason: NAUSEA Pantoprazole Sodium (Protonix 40mg Ivpb (Pre-Docked)) 40 mg IVPB DAILY [facility] Potassium Chloride (K-Dur -) 40 meq PO DAILY [facility] Last Admin: 02/08/17 00:29 Dose: Not Given - Objective Vital Signs: Vital Signs Temperature 98.8 F 02/08/17 02:00 Pulse Rate 106 H 02/08/17 06:00 Respiratory Rate 16 02/08/17 06:00 Blood Pressure 81/64 02/08/17 06:00 O2 Sat by Pulse Oximetry (%) 92 L 02/07/17 20:02 Constitutional: Yes: No Distress, Thin HENT: Yes: WNL, Atraumatic Neck: Yes: WNL, Supple Cardiovascular: Yes: S1, S2. No: Murmur Respiratory: Yes: WNL, Regular, CTA Bilaterally, Rhonchi. No: Rales Gastrointestinal: Yes: WNL, Normal Bowel Sounds, Soft, Distention. No: Ascites , Tenderness, Tenderness, Rebound Extremities: Yes: Amputation Labs: CBC, BMP 02/08/17 05:18 02/08/17 05:18 INR, PTT INR 1.03 (0.82-1.09) 02/07/17 17:20 Problem List - Problems (1) Acute renal failure Code(s): N17.9 - ACUTE KIDNEY FAILURE, UNSPECIFIED Qualifiers: Acute renal failure type: unspecified Qualified Code(s): N17.9 - Acute kidney failure, unspecified (2) CREST variant of scleroderma Code(s): M34.1 - CR(E)ST SYNDROME (3) Opioid dependence, uncomplicated Code(s): F11.20 - OPIOID DEPENDENCE, UNCOMPLICATED Assessment/Plan Microbiology Laboratory Tests 02/07/17 02/07/17 02/07/17 17:20 17:32 20:56 WBC Plt Count ABG pH 7.18 L* D BUN Creatinine Creat Clearance w eGFR Lactic Acid 2.8 H* Ur Leukocyte Esterase Negative Urine WBC 1 02/07/17 02/08/17 20:56 05:18 WBC 9.7 Plt Count 339 ABG pH BUN 86 H Creatinine 3.7 H Creat Clearance w eGFR 12.81 Lactic Acid Ur Leukocyte Esterase Urine WBC Assessment Opiate abuse by history positive toxicology ? Opiate overdose Acute renal failure ? volume depletion related with hypotension on presentation No acute intrabdominal process No pneumonia ( usual for her) Scleroderma like syndrome CREST Plan Cultures pending Would observe off antibiotics at this time Nicolasa CAVAZOS
--- NOTE | 2017-02-08 09:05 | CONS ---
DATE OF CONSULTATION: DATE OF DICTATION: 02/08/2017 HISTORY OF PRESENT ILLNESS: This is 1 of multiple admissions for this 52-year-old female with known scleroderma and severe COPD, including an admission earlier in January. Her chief complaints at the current time of admission: Cyanosis with vomiting, generalized weakness, and lethargy. She apparently had episodes of vomiting the night prior to admission. In the emergency room, she received Narcan with improvement in her mental status along with intravenous fluids administered. She has a history of opiate abuse and typically presents with respiratory infections, including pneumonias, and aspiration following opiate overdose. She denies being on opiates currently since her last admission in January. However, her toxicology is positive. She was brought to the intensive care unit for closer monitoring. The possibility of sepsis was considered as the patient was initially hypotensive. However, she was noted to be in acute renal failure. She had a normal white count, but bands were present on the differential and I assume for this reason she was empirically treated with vancomycin, aztreonam, and metronidazole. I am asked to see her for further evaluation. Currently, she is a sane-appearing woman, alert, and in no distress. She denies any shortness of breath, cough, fever, chills, or abdominal pain. She is actually asking to be fed as she has been kept n.p.o. PAST MEDICAL HISTORY: Includes scleroderma with autoamputation of several fingers, peripheral neuropathy, aortic and mitral insufficiency, COPD, recurrent pneumonias, Bonner esophagus, history of ESBL infection, chronic low back pain with a spinal stimulator, hypothyroidism, appendectomy, exploratory laparoscopy. MEDICATIONS AT HOME: Albuterol, aspirin, Symbicort, Zantac, Neurontin, Tudorza. ALLERGIES: PENICILLIN but tolerates cephalosporins. SOCIAL HISTORY: Marijuana use, prescribed opiate drugs. No intravenous drug use. HIV status negative. Disabled. Lives independently. FAMILY HISTORY: Reviewed and noncontributory. REVIEW OF SYSTEMS: Respiratory: Chronic lung disease with history of asthma. No shortness of breath, wheezing, cough, sputum. Cardiac: No chest pain, palpitation, syncope. Gastrointestinal: Denies abdominal pain. Recurrent episodes of vomiting prior to admission. No hematochezia, melena, diarrhea. Genitourinary: No dysuria, hematuria, urinary frequency. PHYSICAL EXAMINATION: General: She was a thin-appearing woman, weak but alert and in no acute distress. Vital Signs: The temperature 98, pulse 80, respirations 20, blood pressure 90/62, O2 saturation 92%. Neck: Supple with adenopathy. Lungs: Bilateral coarse rhonchi. Heart: S1, S2. Regular rhythm without audible murmur or gallop. Abdomen: Mild distention. Bowel sounds diminished. Soft, nontender. No organomegaly. No rebound tenderness. Extremities: Without edema. Amputation of several fingers. Skin: Sacral 10 x 10 stage 2 decubitus ulcer. Neurologic: Nonfocal. LABORATORY DATA: The white count is 9.7, hemoglobin 10.9, platelets of 339, 14% bands present on initial differential. INR 1.0. BUN 89, creatinine 2.9. Liver enzymes within normal limit. UA was 6 RBCs, 1 WBC. Toxicology positive for opiates. Chest x-ray shows no acute infiltrate. Abdominal CT scan: No gross evidence of bowel obstruction. Moderately distended air-fluid level loops of bowel noted. ASSESSMENT: A 52-year-old female with a history of chronic lung disease, opiate abuse, and repeated admissions for typically opiate-related aspiration pneumonias, presents now with acute renal failure, lethargy, and recurrent episodes of vomiting, responded to Narcan given initially. There is no clinical evidence of infection, including aspiration, at the current time and she remains afebrile, quite stable. She has recently presented similarly with acute renal failure, but her renal function had in fact completely normalized on January 25. PLAN: Cultures of blood and urine are pending. She has a history of an ESBL in August 2016 for which she is on contact isolation. Intravenous fluids to continue. No antibiotics to be given at this time. EDWARD CASSIDY M.D. [id number]
--- NOTE | 2017-02-08 09:21 | EKG ---
Test Reason : Blood Pressure : / mmHG Vent. Rate : 095 BPM Atrial Rate : 095 BPM P-R Int : 154 ms QRS Dur : 084 ms QT Int : 408 ms P-R-T Axes : 078 062 064 degrees QTc Int : 512 ms NORMAL SINUS RHYTHM POSSIBLE LEFT ATRIAL ENLARGEMENT NONSPECIFIC ST ABNORMALITY PROLONGED QT ABNORMAL ECG Confirmed by SHELBY TAM MD ([id number]) on 02/08/2017 9:20:27 AM Referred By: Confirmed By:SHELBY TAM MD
--- NOTE | 2017-02-08 09:22 | PN ---
Progress Note, Physician History of Present Illness: Pt was seen and examined in ICU. Pt states that she is much better today Pt. w/o fever, chills, cough, SOB, nausea, vomiting, diarrhea. Pt. asking for food. Pt. was asked again about any abuse of medication, including pain medication, over the last couple of days and she states that didn't. Later she told to Dr. Eva Gonzalez that she took too much pain medication and got sick (ICU team was made aware). - Current Medication List Current Medications: Active Medications Sodium Chloride (Normal Saline -) 1,000 mls @ 100 mls/hr IV ASDIR [facility] Last Admin: 02/07/17 21:18 Dose: 100 mls/hr Ondansetron HCl (Zofran Injection) 4 mg IVPB Q8H PRN PRN Reason: NAUSEA Pantoprazole Sodium (Protonix 40mg Ivpb (Pre-Docked)) 40 mg IVPB DAILY [facility] Potassium Chloride (K-Dur -) 40 meq PO DAILY [facility] Last Admin: 02/08/17 00:29 Dose: Not Given - Objective Vital Signs: Vital Signs Temperature 98.8 F 02/08/17 02:00 Pulse Rate 101 H 02/08/17 08:00 Respiratory Rate 12 02/08/17 08:00 Blood Pressure 82/56 02/08/17 08:00 O2 Sat by Pulse Oximetry (%) 92 L 02/07/17 20:02 Constitutional: Yes: No Distress, Calm Cardiovascular: Yes: Regular Rate and Rhythm, S1, S2 Respiratory: Yes: Regular, Other (coarse BS bilaterally) Gastrointestinal: Yes: Normal Bowel Sounds, Soft. No: Palpable Mass, Tenderness Edema: No Neurological: Yes: Alert, Oriented, Cran Nerves II-XII Intact Labs: CBC, BMP 02/08/17 05:18 02/08/17 05:18 INR, PTT INR 1.03 (0.82-1.09) 02/07/17 17:20 Problem List - Problems (1) Vomiting Assessment/Plan: Resolved. Code(s): R11.10 - VOMITING, UNSPECIFIED (2) Dehydration Assessment/Plan: on IVF Code(s): E86.0 - DEHYDRATION (3) Acute renal failure Assessment/Plan: Improvement of Creatinine with IVF; to monitor Code(s): N17.9 - ACUTE KIDNEY FAILURE, UNSPECIFIED Qualifiers: Acute renal failure type: unspecified Qualified Code(s): N17.9 - Acute kidney failure, unspecified (4) Hyponatremia Assessment/Plan: Improved,, continue IVF Code(s): E87.1 - HYPO-OSMOLALITY AND HYPONATREMIA (5) Leukocytosis Code(s): D72.829 - ELEVATED WHITE BLOOD CELL COUNT, UNSPECIFIED (6) Bandemia Assessment/Plan: Resolved. Case was d/w Dr. Baldwin; no Abtx needed now, to monitor CX Code(s): D72.825 - BANDEMIA (7) Acidosis Code(s): E87.2 - ACIDOSIS (8) Lactic acidosis Assessment/Plan: Resolved Code(s): E87.2 - ACIDOSIS (9) CREST variant of scleroderma Code(s): M34.1 - CR(E)ST SYNDROME (10) COPD (chronic obstructive pulmonary disease) Code(s): J44.9 - CHRONIC OBSTRUCTIVE PULMONARY DISEASE, UNSPECIFIED (11) Chronic back pain Code(s): M54.9 - DORSALGIA, UNSPECIFIED G89.29 - OTHER CHRONIC PAIN (12) Hypokalemia Code(s): E87.6 - HYPOKALEMIA (13) Opioid abuse with intoxication Code(s): F11.129 - OPIOID ABUSE WITH INTOXICATION, UNSPECIFIED Assessment/Plan Admitted to ICU IVF Zofran PRN Abtx were DC'ed GI prophylaxis with PPI DVT prophylaxis Send pt. for abd. XR to R/O obstruction, illeus; if negative for obstruction/ illeus to start trail of clear liquids. CCM consult Renal consult. GI consults AM labs. Case was d/w pt's nurse (Patricia). Time spent for managing pt: over 40 minutes
[2017-02-08] MEDS ORDERED: PANTOPRAZOLE SODIUM 40 MG/100 ML PRE-DOCKED IVPB SCH (10:00)
[2017-02-08] MEDS ORDERED: PANTOPRAZOLE SODIUM 40 MG in SODIUM CHLORIDE 100 ML IVPB SCH (10:00)
--- NOTE | 2017-02-08 12:00 | CONSULT ---
Consult - text type - Consultation Consultation Note: Renal Consult for PRASHANT This is a 52 year old woman with PMhx of CREST syndrome, Reynods s/p digit amputations, Scleroderma w/o Hx of renal crisis, Chronic Back pain who presented with N/V and found to have Hypovolemic Shock with Lactic acidosis and Renal failure. Pt reports that she was vomiting for 2 days with no oral intake. Denies any NSAID use at home. Chronically on Oxycodone for back pain. Does report decreased urine output, no hematuria. No Flank pain. No Hx of kidney stones. No AMS, confusion or lethargy. Pt unable to tolerated oral water intake when vomiting. PMhx: as abvoe Allergies: PCN Family Hx: NC Social Hx: No T/A/D ROS: as per HPI, all other pertinent ros negative Home Meds: Home Medications Medication Instructions Recorded Duloxetine HCl [Cymbalta -] 60 mg PO DAILY #30 capsule. 03/10/15 Albuterol 0.083% Nebulizer Cinthya 1 amp NEB Q4H PRN #1 amp 04/11/16 [Ventolin 0.083% Nebulizer Soln -] Aspirin [ASA -] 81 mg PO DAILY tab.chew 04/11/16 Budesonide/Formeterol Fumarate 2 puff IH BID #1 inhaler 04/11/16 [SYMBICORT 80/4.5mcg -] Ranitidine [Zantac -] 150 mg PO DAILY 05/27/16 Gabapentin [Neurontin -] 800 mg PO TID capsule 05/28/16 Aclidinium [place] [Tudorza -] 1 puff IH DAILY inhaler 07/20/16 Lactobacillus Acidophilus [Bacid -] 1 each PO DAILY #30 capsule 07/20/16 Metoclopramide HCl [Reglan -] 10 mg PO ACHS tablet 07/20/16 Acetaminophen [Tylenol .Regular 650 mg PO Q6H PRN #0 tablet 07/31/16 Strength -] Hydroxychloroquine So4 [Plaquenil 200 mg PO BID tablet 07/31/16 -] Pantoprazole Sodium [Protonix -] 40 mg PO BID tablet.ec 07/31/16 Cyclobenzaprine HCl [Flexeril -] 5 mg PO BID PRN #20 tablet 09/16/16 Lidocaine 5% Patch [Lidoderm -] 2 patch TP DAILY #60 patch 09/16/16 Albuterol 2.5/Ipratropium 0.5 1 amp NEB BID amp 12/17/16 [Duoneb -] Multivitamins [Multivit ([facility] 1 tab PO DAILY tab 12/17/16 Formulary)] Magnesium Oxide [Mag-Ox -] 400 mg PO BID #30 tablet MDD 2 12/18/16 Potassium Chloride [K-Dur -] 20 meq PO DAILY #30 tab 12/18/16 Bisacodyl Suppository [Dulcolax 10 mg RC DAILY PRN #0 supp.rect 01/01/17 Suppository -] Cephalexin Monohydrate [Keflex -] 500 mg PO TID #15 cap 01/01/17 Metronidazole [Flagyl -] 500 mg PO TID #15 tablet 01/01/17 Polyethylene Glycol 3350 [Miralax 17 gm PO DAILY PRN #0 bottle 01/01/17 119 gm Btl -] Polyethylene Glycol 3350 [Miralax 17 gm PO DAILY bottle 01/01/17 255 gm Btl -] Vital Signs Temperature 97.2 F L 02/08/17 11:06 Pulse Rate 101 H 02/08/17 11:06 Respiratory Rate 15 02/08/17 11:06 Blood Pressure 86/62 02/08/17 11:06 O2 Sat by Pulse Oximetry (%) 92 L 02/08/17 09:00 Intake & Output 02/05/17 02/06/17 02/07/17 02/08/17 23:59 23:59 23:59 23:59 Intake Total 2000 Output Total 300 200 Balance -300 1800 Weight 81 lb 81 lb Gen: NAD, awake on NC HEENT: NC/AT, No JVD, Dry MM CVS: RRR, No M/R Lungs: CTA, no rales or wheeze Abd: soft NT/ND Ext: No edema, clubbing or edema. Multiple amputations. Neuro: Awake and alert : No bladder distension, lew in place CBC, BMP 02/08/17 05:18 02/08/17 05:18 Current Medications Sodium Chloride (Normal Saline -) 1,000 mls @ 100 mls/hr IV ASDIR [facility] Last Admin: 02/07/17 21:18 Dose: 100 mls/hr Ondansetron HCl (Zofran Injection) 4 mg IVPB Q8H PRN PRN Reason: NAUSEA Pantoprazole Sodium (Protonix 40mg Ivpb (Pre-Docked)) 40 mg IVPB DAILY [facility] Last Admin: 02/08/17 11:04 Dose: 40 mg Potassium Chloride (K-Dur -) 40 meq PO DAILY [facility] Last Admin: 02/08/17 11:04 Dose: 40 meq A/P 52 year old woman with PMhx of CREST syndrome, Reynods s/p digit amputations, Scleroderma w/o Hx of renal crisis, Chronic Back pain who presented with N/V and found to have Hypovolemic Shock with Lactic acidosis and Renal failure. #Acute Kidney Injury Differential includes: Volume Depeltion -> Pre-renal injury vs. ATN, Scleroderal Renal Crisis (unlikely given no hypertension), Obstruction ( unlikely given recent renal US shoed no hydro) Renal function with improvement with IV Hydration continue isotonic saline at present rate no JEOVANNY/ARBs/NSAIDs at this time Trend Urine output Check urine studies Dose all meds for Cr Cl less then 15 Keep MAP > 65 #Hypovolemic Hyponatremia serum Na with appropriate improvement over the past 18 hours Trend Na Q8h #Metabolic Acidosis/Lactic Acidosis co-existing Metabolic alkalosis as well etiology lactic acidosis/renal failure with contraction alkalosis serum bicab is improving continue istonic saline no indication for bicarb at this time #Nausea/Vomiting/Shock management as per ICU
--- NOTE | 2017-02-08 12:58 | PN ---
Teaching Attending Note Name of Resident: Loraine Gill ATTENDING PHYSICIAN STATEMENT I saw and evaluated the patient. I reviewed the resident's note and discussed the case with the resident. I agree with the resident's findings and plan as documented. SUBJECTIVE: Patient seen and examined in the ICU. Drowsy but easily arousable. Denies CP, SOB, or significant cough. Although abdomen slightly distended -> BM yesterday. Intake & Output 02/05/17 02/06/17 02/07/17 02/08/17 23:59 23:59 23:59 23:59 Intake Total 2000 Output Total 300 200 Balance -300 1800 Weight 81 lb 81 lb Last Vital Signs Temp Pulse Resp BP Pulse Ox 97.2 F L 101 H 15 86/62 92 L 02/08/17 11:06 02/08/17 11:06 02/08/17 11:06 02/08/17 11:06 02/08/17 09:00 Active Medications Sodium Chloride (Normal Saline -) 1,000 mls @ 100 mls/hr IV [facility] Last Admin: 02/07/17 21:18 Dose: 100 mls/hr Ondansetron HCl (Zofran Injection) 4 mg IVPB Q8H PRN PRN Reason: NAUSEA Pantoprazole Sodium (Protonix 40mg Ivpb (Pre-Docked)) 40 mg IVPB DAILY [facility] Last Admin: 02/08/17 11:04 Dose: 40 mg Potassium Chloride (K-Dur -) 40 meq PO DAILY [facility] Last Admin: 02/08/17 11:04 Dose: 40 meq Constitutional: Yes: Drowsy, Cachectic Eyes: Yes: PERRL Cardiovascular: Yes: Regular Rate and Rhythm, S1, S2 Respiratory: Yes: Diminished Gastrointestinal: Yes: Normal Bowel Sounds, (+) Distention, NT, (+) BS Extremities: Yes: Cool, Cyanosis Edema: No Integumentary: Yes: Pressure Ulcer (10x 10 stage 2 sacral), Venous Stasis Changes Neurological: Yes: Alert Labs: Laboratory Results - last 24 hr 02/07/17 02/07/17 02/07/17 17:20 17:20 17:20 WBC 10.5 H D RBC 4.50 Hgb 12.3 D Hct 38.1 D MCV 84.5 MCHC 32.3 RDW 20.7 H Plt Count 472 H D MPV 9.4 Neutrophils % 63.0 Lymphocytes % 13.0 D Monocytes % 10.0 Band Neutrophils 14.0 H D Platelet Estimate Increased Platelet Comment No clumping noted Anisocytosis 2+ Microcytosis 1+ INR 1.03 PTT (Actin FS) 32.0 Anticoagulation Therapy Puncture Site ABG pH ABG pCO2 at Pt Temp ABG pO2 at Pt Temp ABG HCO3 ABG O2 Sat (Measured) ABG O2 Content ABG Base Excess Akash Test O2 Delivery Device Oxygen Flow Rate Vent Mode Vent Rate Mechanical Rate PEEP Pressure Support Vent Sodium 121 L* D Potassium 3.9 Chloride 69 L D Carbon Dioxide 15 L D Anion Gap 37 H BUN 85 H D Creatinine 4.6 H D Creat Clearance w eGFR 9.97 Random Glucose 215 H D Lactic Acid Calcium 9.1 Phosphorus Magnesium Total Bilirubin 0.4 Direct Bilirubin AST 15 D ALT 21 D Alkaline Phosphatase 51 D Creatine Kinase 41 Troponin I < 0.02 Total Protein 8.4 H D Albumin 3.3 L D Total Amylase Lipase Urine Color Urine Appearance Urine pH Ur Specific [place] Urine Protein Urine Glucose (UA) Urine Ketones Urine Blood Urine Nitrite Urine Bilirubin Urine Urobilinogen Ur Leukocyte Esterase Urine RBC Urine WBC Ur Epithelial Cells Urine Bacteria Hyaline Casts Urine Mucus Opiates Screen Methadone Screen Barbiturate Screen Phencyclidine Screen Ur Amphetamines Screen MDMA (Ecstasy) Screen Benzodiazepines Screen Cocaine Screen U Marijuana (THC) Screen 02/07/17 02/07/17 02/07/17 17:20 17:20 17:20 WBC RBC Hgb Hct MCV MCHC RDW Plt Count MPV Neutrophils % Lymphocytes % Monocytes % Band Neutrophils Platelet Estimate Platelet Comment Anisocytosis Microcytosis INR PTT (Actin FS) Anticoagulation Therapy Y Puncture Site Md puncture ABG pH 7.18 L* D ABG pCO2 at Pt Temp 44.4 ABG pO2 at Pt Temp 29.6 L* ABG HCO3 16.0 L ABG O2 Sat (Measured) 31.5 L* ABG O2 Content 5.4 L* ABG Base Excess -11.7 L* Akash Test Not applicable O2 Delivery Device nasal cannula Oxygen Flow Rate 3l Vent Mode Y Vent Rate Y Mechanical Rate Y PEEP 0.0 Pressure Support Vent Y Sodium Potassium Chloride Carbon Dioxide Anion Gap BUN Creatinine Creat Clearance w eGFR Random Glucose Lactic Acid 11.4 H* Calcium Phosphorus Magnesium 2.9 H D Total Bilirubin Direct Bilirubin AST ALT Alkaline Phosphatase Creatine Kinase Troponin I Total Protein Albumin Total Amylase Lipase Urine Color Urine Appearance Urine pH Ur Specific [place] Urine Protein Urine Glucose (UA) Urine Ketones Urine Blood Urine Nitrite Urine Bilirubin Urine Urobilinogen Ur Leukocyte Esterase Urine RBC Urine WBC Ur Epithelial Cells Urine Bacteria Hyaline Casts Urine Mucus Opiates Screen Methadone Screen Barbiturate Screen Phencyclidine Screen Ur Amphetamines Screen MDMA (Ecstasy) Screen Benzodiazepines Screen Cocaine Screen U Marijuana (THC) Screen 02/07/17 02/07/17 02/07/17 17:32 18:39 20:52 WBC RBC Hgb Hct MCV MCHC RDW Plt Count MPV Neutrophils % Lymphocytes % Monocytes % Band Neutrophils Platelet Estimate Platelet Comment Anisocytosis Microcytosis INR PTT (Actin FS) Anticoagulation Therapy Puncture Site Md puncture ABG pH 7.31 L ABG pCO2 at Pt Temp 35.8 ABG pO2 at Pt Temp 82.4 D ABG HCO3 17.5 L ABG O2 Sat (Measured) 93.4 ABG O2 Content 14.1 L ABG Base Excess -7.6 L Akash Test Not applicable O2 Delivery Device Nasal Oxygen Flow Rate 3l Vent Mode Vent Rate Mechanical Rate PEEP Pressure Support Vent Sodium Potassium Chloride Carbon Dioxide Anion Gap BUN Creatinine Creat Clearance w eGFR Random Glucose Lactic Acid Calcium Phosphorus Magnesium Total Bilirubin Direct Bilirubin AST ALT Alkaline Phosphatase Creatine Kinase Troponin I Total Protein Albumin Total Amylase Lipase Urine Color Dkyellow Urine Appearance Clear Urine pH 5.0 Ur Specific [place] 1.020 Urine Protein 1+ H Urine Glucose (UA) Negative Urine Ketones Negative Urine Blood Negative Urine Nitrite Negative Urine Bilirubin 2.0 Urine Urobilinogen Negative Ur Leukocyte Esterase Negative Urine RBC 6 Urine WBC 1 Ur Epithelial Cells Rare Urine Bacteria Rare Hyaline Casts 40 Urine Mucus Rare Opiates Screen Positive Methadone Screen Negative Barbiturate Screen Negative Phencyclidine Screen Negative Ur Amphetamines Screen Negative MDMA (Ecstasy) Screen Negative Benzodiazepines Screen Negative Cocaine Screen Negative U Marijuana (THC) Screen Negative 02/07/17 02/07/17 02/07/17 20:56 20:56 20:56 WBC 8.8 RBC 3.94 Hgb 10.8 D Hct 32.9 MCV 83.4 MCHC 32.7 RDW 20.4 H Plt Count 341 D MPV 8.9 Neutrophils % Lymphocytes % Monocytes % Band Neutrophils Platelet Estimate Platelet Comment Anisocytosis Microcytosis INR PTT (Actin FS) Anticoagulation Therapy Puncture Site ABG pH ABG pCO2 at Pt Temp ABG pO2 at Pt Temp ABG HCO3 ABG O2 Sat (Measured) ABG O2 Content ABG Base Excess Akash Test O2 Delivery Device Oxygen Flow Rate Vent Mode Vent Rate Mechanical Rate PEEP Pressure Support Vent Sodium 126 L Potassium 3.2 L Chloride 86 L D Carbon Dioxide 18 L Anion Gap 22 H BUN 86 H Creatinine 3.7 H Creat Clearance w eGFR 12.81 Random Glucose 80 D Lactic Acid 2.8 H* Calcium 7.5 L Phosphorus Magnesium Total Bilirubin 0.3 D Direct Bilirubin AST 20 D ALT 19 Alkaline Phosphatase 42 L Creatine Kinase Troponin I Total Protein 6.9 Albumin 2.8 L Total Amylase Lipase Urine Color Urine Appearance Urine pH Ur Specific [place] Urine Protein Urine Glucose (UA) Urine Ketones Urine Blood Urine Nitrite Urine Bilirubin Urine Urobilinogen Ur Leukocyte Esterase Urine RBC Urine WBC Ur Epithelial Cells Urine Bacteria Hyaline Casts Urine Mucus Opiates Screen Methadone Screen Barbiturate Screen Phencyclidine Screen Ur Amphetamines Screen MDMA (Ecstasy) Screen Benzodiazepines Screen Cocaine Screen U Marijuana (THC) Screen 02/07/17 02/08/17 02/08/17 21:00 05:18 05:18 WBC 9.7 RBC 3.92 Hgb 10.9 Hct 32.4 MCV 82.8 MCHC 33.6 RDW 20.6 H Plt Count 339 MPV 8.8 Neutrophils % Lymphocytes % Monocytes % Band Neutrophils Platelet Estimate Platelet Comment Anisocytosis Microcytosis INR PTT (Actin FS) Anticoagulation Therapy Puncture Site ABG pH ABG pCO2 at Pt Temp ABG pO2 at Pt Temp ABG HCO3 ABG O2 Sat (Measured) ABG O2 Content ABG Base Excess Akash Test O2 Delivery Device Oxygen Flow Rate Vent Mode Vent Rate Mechanical Rate PEEP Pressure Support Vent Sodium 129 L Potassium 4.7 D Chloride 90 L Carbon Dioxide 20 L Anion Gap 19 H BUN 89 H Creatinine 2.9 H D Creat Clearance w eGFR Random Glucose 97 D Lactic Acid Calcium 8.0 L Phosphorus 7.0 H D Magnesium 2.1 D Total Bilirubin 0.3 Direct Bilirubin 0.1 AST 23 ALT 19 Alkaline Phosphatase 41 L Creatine Kinase Troponin I Total Protein 6.7 Albumin 2.6 L Total Amylase 10 L D Lipase 54 L Urine Color Urine Appearance Urine pH Ur Specific [place] Urine Protein Urine Glucose (UA) Urine Ketones Urine Blood Urine Nitrite Urine Bilirubin Urine Urobilinogen Ur Leukocyte Esterase Urine RBC Urine WBC Ur Epithelial Cells Urine Bacteria Hyaline Casts Urine Mucus Opiates Screen Methadone Screen Barbiturate Screen Phencyclidine Screen Ur Amphetamines Screen MDMA (Ecstasy) Screen Benzodiazepines Screen Cocaine Screen U Marijuana (THC) Screen 02/08/17 05:18 WBC RBC Hgb Hct MCV MCHC RDW Plt Count MPV Neutrophils % Lymphocytes % Monocytes % Band Neutrophils Platelet Estimate Platelet Comment Anisocytosis Microcytosis INR PTT (Actin FS) Anticoagulation Therapy Puncture Site ABG pH ABG pCO2 at Pt Temp ABG pO2 at Pt Temp ABG HCO3 ABG O2 Sat (Measured) ABG O2 Content ABG Base Excess Akash Test O2 Delivery Device Oxygen Flow Rate Vent Mode Vent Rate Mechanical Rate PEEP Pressure Support Vent Sodium Potassium Chloride Carbon Dioxide Anion Gap BUN Creatinine Creat Clearance w eGFR Random Glucose Lactic Acid 1.0 Calcium Phosphorus Magnesium Total Bilirubin Direct Bilirubin AST ALT Alkaline Phosphatase Creatine Kinase Troponin I Total Protein Albumin Total Amylase Lipase Urine Color Urine Appearance Urine pH Ur Specific [place] Urine Protein Urine Glucose (UA) Urine Ketones Urine Blood Urine Nitrite Urine Bilirubin Urine Urobilinogen Ur Leukocyte Esterase Urine RBC Urine WBC Ur Epithelial Cells Urine Bacteria Hyaline Casts Urine Mucus Opiates Screen Methadone Screen Barbiturate Screen Phencyclidine Screen Ur Amphetamines Screen MDMA (Ecstasy) Screen Benzodiazepines Screen Cocaine Screen U Marijuana (THC) Screen Problem List - Problems (1) Acute renal failure Code(s): N17.9 - ACUTE KIDNEY FAILURE, UNSPECIFIED Qualifiers: Acute renal failure type: unspecified Qualified Code(s): N17.9 - Acute kidney failure, unspecified (2) CREST variant of scleroderma Code(s): M34.1 - CR(E)ST SYNDROME (3) Dehydration Code(s): E86.0 - DEHYDRATION (4) Hyponatremia Code(s): E87.1 - HYPO-OSMOLALITY AND HYPONATREMIA (5) Opioid dependence, uncomplicated Code(s): F11.20 - OPIOID DEPENDENCE, UNCOMPLICATED (6) Abdominal pain Code(s): R10.9 - UNSPECIFIED ABDOMINAL PAIN (7) COPD (chronic obstructive pulmonary disease) Code(s): J44.9 - CHRONIC OBSTRUCTIVE PULMONARY DISEASE, UNSPECIFIED (8) Lactic acidosis Code(s): E87.2 - ACIDOSIS (9) Raynauds disease Code(s): I73.00 - RAYNAUD'S SYNDROME WITHOUT GANGRENE (10) Sepsis Code(s): A41.9 - SEPSIS, UNSPECIFIED ORGANISM (11) Vomiting Code(s): R11.10 - VOMITING, UNSPECIFIED Assessment/Plan IVF O2 as needed BD TX PRN Monitor off systemic steroids Monitor off ABX Follow renal function Caution with opiates Dr Owens critical care time spent in reviewing chart, evaluating patient and formulating plan 40 min
--- NOTE | 2017-02-08 14:20 | PN ---
Physical Exam: SUBJECTIVE: Patient seen and examined. She is feeling good today. She doesn't vomit today. Denies nausea, fever, chills, diarrhea. last BM was yesterday and it was normal. OBJECTIVE: Vital Signs Period Temp Pulse Resp BP Sys/Sotelo Pulse Ox Last 24 Hr 97.2 F-98.8 F 81-107 11-21 77-92/55-71 92-92 GENERAL: The patient is awake, alert, and fully oriented, in no acute distress, cachectic. HEAD: Normal with no signs of trauma. EYES: extraocular movements intact, sclera anicteric, conjunctiva clear. ENT:oropharynx clear without exudates, moist mucous membranes. NECK: Trachea midline, full range of motion, supple. LUNGS: Breath sounds equal, coarse breath sounds bilaterally, no wheezes, no crackles, no accessory muscle use. HEART: Regular rate and rhythm, S1, S2 without murmur, rub or gallop. ABDOMEN: nontender, distended, normoactive bowel sounds, no guarding EXTREMITIES: no edema, hands: multiple digits amputated. NEUROLOGICAL: Normal speech, gait not observed. PSYCH: Normal mood, normal affect. SKIN: Warm, dry, normal turgor, no rashes or lesions noted. Laboratory Results - last 24 hr 02/07/17 02/07/17 02/07/17 20:52 20:56 20:56 WBC RBC Hgb Hct MCV MCHC RDW Plt Count MPV Puncture Site Md puncture ABG pH 7.31 L ABG pCO2 at Pt Temp 35.8 ABG pO2 at Pt Temp 82.4 D ABG HCO3 17.5 L ABG O2 Sat (Measured) 93.4 ABG O2 Content 14.1 L ABG Base Excess -7.6 L Akash Test Not applicable O2 Delivery Device Nasal Oxygen Flow Rate 3l Sodium 126 L Potassium 3.2 L Chloride 86 L D Carbon Dioxide 18 L Anion Gap 22 H BUN 86 H Creatinine 3.7 H Creat Clearance w eGFR 12.81 Random Glucose 80 D Lactic Acid 2.8 H* Calcium 7.5 L Phosphorus Magnesium Total Bilirubin 0.3 D Direct Bilirubin AST 20 D ALT 19 Alkaline Phosphatase 42 L Total Protein 6.9 Albumin 2.8 L Total Amylase Lipase 02/07/17 02/07/17 02/08/17 20:56 21:00 05:18 WBC 8.8 9.7 RBC 3.94 3.92 Hgb 10.8 D 10.9 Hct 32.9 32.4 MCV 83.4 82.8 MCHC 32.7 33.6 RDW 20.4 H 20.6 H Plt Count 341 D 339 MPV 8.9 8.8 Puncture Site ABG pH ABG pCO2 at Pt Temp ABG pO2 at Pt Temp ABG HCO3 ABG O2 Sat (Measured) ABG O2 Content ABG Base Excess Akash Test O2 Delivery Device Oxygen Flow Rate Sodium Potassium Chloride Carbon Dioxide Anion Gap BUN Creatinine Creat Clearance w eGFR Random Glucose Lactic Acid Calcium Phosphorus Magnesium Total Bilirubin Direct Bilirubin AST ALT Alkaline Phosphatase Total Protein Albumin Total Amylase 10 L D Lipase 54 L 02/08/17 02/08/17 05:18 05:18 WBC RBC Hgb Hct MCV MCHC RDW Plt Count MPV Puncture Site ABG pH ABG pCO2 at Pt Temp ABG pO2 at Pt Temp ABG HCO3 ABG O2 Sat (Measured) ABG O2 Content ABG Base Excess Akash Test O2 Delivery Device Oxygen Flow Rate Sodium 129 L Potassium 4.7 D Chloride 90 L Carbon Dioxide 20 L Anion Gap 19 H BUN 89 H Creatinine 2.9 H D Creat Clearance w eGFR Random Glucose 97 D Lactic Acid 1.0 Calcium 8.0 L Phosphorus 7.0 H D Magnesium 2.1 D Total Bilirubin 0.3 Direct Bilirubin 0.1 AST 23 ALT 19 Alkaline Phosphatase 41 L Total Protein 6.7 Albumin 2.6 L Total Amylase Lipase Active Medications Generic Name Dose Route Start Last Admin Trade Name Freq PRN Reason Stop Dose Admin Sodium Chloride 1,000 mls @ 100 mls/hr 02/07/17 18:45 02/07/17 21:18 Normal Saline - IV 100 mls/hr ASDIR RAISSA Administration Ondansetron HCl 4 mg 02/07/17 23:04 Zofran Injection IVPB Q8H PRN NAUSEA Pantoprazole Sodium 40 mg 02/08/17 10:00 02/08/17 11:04 Protonix 40mg Ivpb (Pre-Docked) IVPB 40 mg DAILY RAISSA Administration Potassium Chloride 40 meq 02/07/17 23:00 02/08/17 11:04 K-Dur - PO 40 meq DAILY RAISSA Administration CXR: chronic pseudobstructive pattern on her X rays ASSESSMENT/PLAN: 52 yo woman with PMH of COPD, scleroderma, Raynauds s/p digit amputations, CREST syndrome with gastric dysmotility, chronic back pain s/p multiple surgeries, last one 2 weeks ago, on chronic opioids with hyponatremia, lactic acidosis, PRASHANT, leukocytosis w/ bandemia c/f abdominal sepsis vs opioid overdose c/b dehydration. Nausea and vomiting: -possible due to gastroparesis -Zofran 4 mg Q8H -better today -blood cultures and urine cx ordered -lactic acidosis resolved elevated WBC and Bandemia: -empiric ABX given in ED: aztreonam, flagyl and vanco. Patient with h/o ESBL E. coli and klebs pna UTIs in past, resistant to cefepime and levaquin -will repeat CXR Opioid overdose: -pt reports taking additional dose of oxycodone -she was given Narcan x 2 in ED yesterday -positive Urine toxicology PRASHANT: -IVF @100 ml/hr -monitor BUN and Cr Hyponatremia: -continue NS -CMP in AM CREST: -f/u GI recommendations -the pt has been hospitalized multiple times in the past Lactic acidosis -resolved COPD -oxygen supplementation when needed Chronic back pain -continue pain management Disposition: the pt will be transferred to Med surg. Problem List - Problems (1) Acidosis Code(s): E87.2 - ACIDOSIS (2) Acute renal failure Code(s): N17.9 - ACUTE KIDNEY FAILURE, UNSPECIFIED Qualifiers: Acute renal failure type: unspecified Qualified Code(s): N17.9 - Acute kidney failure, unspecified (3) Bandemia Code(s): D72.825 - BANDEMIA (4) CREST variant of scleroderma Code(s): M34.1 - CR(E)ST SYNDROME (5) Dehydration Code(s): E86.0 - DEHYDRATION (6) Hyponatremia Code(s): E87.1 - HYPO-OSMOLALITY AND HYPONATREMIA (7) Leukocytosis Code(s): D72.829 - ELEVATED WHITE BLOOD CELL COUNT, UNSPECIFIED (8) Opioid dependence, uncomplicated Code(s): F11.20 - OPIOID DEPENDENCE, UNCOMPLICATED (9) PRASHANT (acute kidney injury) Code(s): N17.9 - ACUTE KIDNEY FAILURE, UNSPECIFIED (10) Abdominal distention Code(s): R14.0 - ABDOMINAL DISTENSION (GASEOUS) (11) Abdominal pain Code(s): R10.9 - UNSPECIFIED ABDOMINAL PAIN (12) Acute respiratory failure Code(s): J96.00 - ACUTE RESPIRATORY FAILURE, UNSP W HYPOXIA OR HYPERCAPNIA Qualifiers: Respiratory failure complication: hypercapnia Qualified Code(s): J96.02 - Acute respiratory failure with hypercapnia (13) Chronic back pain Code(s): M54.9 - DORSALGIA, UNSPECIFIED G89.29 - OTHER CHRONIC PAIN Visit type - Emergency Visit Emergency Visit: Yes ED Registration Date: 02/07/17 Care time: The patient presented to the Emergency Department on the above date and was hospitalized for further evaluation of their emergent condition. - New Patient This patient is new to me today: No - Critical Care Critical Care patient: Yes Total Critical Care Time (in minutes): 35 Critical Care Statement: The care of this patient involved high complexity decision making to prevent further life threatening deterioration of the patient 's condition and/or to evalute & treat vital organ system(s) failure or risk of failure.
--- NOTE | 2017-02-08 15:35 | CON.GI ---
Consult Consult Specialty:: Gastroenterology Referred by:: Dr. Gonzalez Reason for Consultation:: Vomiting and inability to eat - History of Present Illness Chief Complaint: Vomiting and inability to eat History of Present Illness: 52F with scleroderma and recurrent vomiting that has led to dehydration, hypotension and lactic acidosis. She admits to taking too much oxycodone. She does have a chronic pseudobstructive pattern on her X rays. In 12/31 she had an exploratory laparotomy for pneumoperitoneum but no perforation was found. She s felt to have perforated a small bowel diverticulum in the past which was managed conservatively. Her last colonoscopy was on 06/15/15 and revealed mild left colon diverticulosis. EGD on 06/15/15 revealed copious laryngeal reflux, long segment Bonner's esophagus, a hiatal hernia, diffuse atrophic gastritis, large duodenal diverticulum and angiodysplasia in the 2nd portion. She currently denies abdominal pain and wants to eat. FUA has distended bowel loops but no overt obstructionc - History Source History Provided By: Patient Limitations to Obtaining History: No Limitations - Past Medical History MAINTENANCE MGR: Yes: Peripheral Neuropathy Cardio/Vascular: Yes: Aortic Insufficiency (mild), Mitral Insufficiency (mild), Other (Raynaud's w/ multiple upper extremity digit amputations. Normal coronaries on cardiac cath and EF 65% with mild AI, trace MR and TR on echo @ [facility] 03/31) Pulmonary: Yes: Asthma, COPD, Pneumonia, Other (lung mass of undetermined etiology) Gastrointestinal: Yes: Constipation, Diverticulitis, Diverticulosis (small bowel diverticular perforation, scleroderma affecting the esophagus, Bonner's esophagus, Schatzki ring,, antral ulcer, gastroparesis related to scleroderma), GERD (with long segment Bonner's esophagus and patent Schatzki ring), Peptic Ulcer Disease (antral ulcer ), Other (Bonner's esophagus, GERD, Schatzki ring, perforation of small bowel diverticulum, antral ulcer, scleroderma causing esophageal dysmotility and gastroparesis, GERD with long segment Bonner's esophagus,Schatzki ring,GAVE syndrome) Renal/: Yes: Renal Failure ...LMP Comment: Unknown Infectious Disease: Yes: MRSA (bursitis) Psych: Yes: Addictions (marijuana,tobacco and prescription narcotics) Musculoskeletal: Yes: Chronic low back pain, Other (has spinal stimulator) Rheumatology: Yes: Vasculitis, Other (Scleroderma, Raynauds and CREST syndrome) Endocrine: Yes: Hypothyroidism, Other (Malnutrition, osteoporosis) Dermatology: Yes: Cellulitis - Past Surgical History Past Surgical History: Yes: Appendectomy, Colonoscopy, Upper Endoscopy Additional Surgical History: 12/31 exploratory laparotomy - nothing resected - Alcohol/Substance Use Hx Alcohol Use: No History of Substance Use: reports: Marijuana, Prescription - Smoking History Smoking history: Current every day smoker Have you smoked in the past 12 months: Yes Aproximately how many cigarettes per day: 10 If you are a former smoker, when did you quit?: 4 years ago - Social History Usual Living Arrangement: With Parent ADL: Independent Occupation: disabled Place of : [facility] History of Recent Travel: No Home Medications - Allergies Allergies/Adverse Reactions: Allergies Allergy/AdvReac Type Severity Reaction Status Date / Time Penicillins Allergy Severe Hives Verified 02/07/17 17:45 tomato AdvReac Uncoded 02/07/17 17:45 - Home Medications Home Medications: Ambulatory Orders Duloxetine HCl [Cymbalta -] 60 mg PO DAILY #30 capsule. 03/10/15 Albuterol 0.083% Nebulizer Cinthya [Ventolin 0.083% Nebulizer Soln -] 1 amp NEB Q4H PRN #1 amp 04/11/16 Aspirin [ASA -] 81 mg PO DAILY tab.chew 04/11/16 Budesonide/Formeterol Fumarate [SYMBICORT 80/4.5mcg -] 2 puff IH BID #1 inhaler 04/11/16 Ranitidine [Zantac -] 150 mg PO DAILY 05/27/16 Gabapentin [Neurontin -] 800 mg PO TID capsule 05/28/16 Aclidinium [place] [Tudorza -] 1 puff IH DAILY inhaler 07/20/16 Lactobacillus Acidophilus [Bacid -] 1 each PO DAILY #30 capsule 07/20/16 Metoclopramide HCl [Reglan -] 10 mg PO ACHS tablet 07/20/16 Acetaminophen [Tylenol .Regular Strength -] 650 mg PO Q6H PRN #0 tablet Hydroxychloroquine So4 [Plaquenil -] 200 mg PO BID tablet 07/31/16 Pantoprazole Sodium [Protonix -] 40 mg PO BID tablet.ec 07/31/16 Cyclobenzaprine HCl [Flexeril -] 5 mg PO BID PRN #20 tablet 09/16/16 Lidocaine 5% Patch [Lidoderm -] 2 patch TP DAILY #60 patch 09/16/16 Albuterol 2.5/Ipratropium 0.5 [Duoneb -] 1 amp NEB BID amp 12/17/16 Multivitamins [Multivit ([facility] Formulary)] 1 tab PO DAILY tab 12/17/16 Magnesium Oxide [Mag-Ox -] 400 mg PO BID #30 tablet MDD 2 12/18/16 Potassium Chloride [K-Dur -] 20 meq PO DAILY #30 tab 12/18/16 Bisacodyl Suppository [Dulcolax Suppository -] 10 mg RC DAILY PRN #0 supp.rect 01/01/17 Cephalexin Monohydrate [Keflex -] 500 mg PO TID #15 cap 01/01/17 Metronidazole [Flagyl -] 500 mg PO TID #15 tablet 01/01/17 Polyethylene Glycol 3350 [Miralax 119 gm Btl -] 17 gm PO DAILY PRN #0 bottle Polyethylene Glycol 3350 [Miralax 255 gm Btl -] 17 gm PO DAILY bottle 01/01/17 Family Disease History - Family Disease History Family Disease History: Diabetes: Father (HCV), Heart Disease: Father, Mother, Other: Father, Brother (HIV) Physical Exam-GI Vital Signs: Vital Signs Temperature 97.2 F L 02/08/17 11:06 Pulse Rate 101 H 02/08/17 11:06 Respiratory Rate 15 02/08/17 11:06 Blood Pressure 86/62 02/08/17 11:06 O2 Sat by Pulse Oximetry (%) 92 L 02/08/17 09:00 CBC,CMP WBC 9.7 K/mm3 (4.0-10.0) 02/08/17 05:18 RBC 3.92 M/mm3 (3.60-5.2) 02/08/17 05:18 Hgb 10.9 GM/dL (10.7-15.3) 02/08/17 05:18 Hct 32.4 % (32.4-45.2) 02/08/17 05:18 MCV 82.8 fl (80-96) 02/08/17 05:18 MCHC 33.6 g/dl (32.0-36.0) 02/08/17 05:18 RDW 20.6 % (11.6-15.6) H 02/08/17 05:18 Plt Count 339 K/MM3 (134-434) 02/08/17 05:18 MPV 8.8 fl (7.5-11.1) 02/08/17 05:18 Neutrophils % 63.0 % (42.8-82.8) 02/07/17 17:20 Lymphocytes % 13.0 % (8-40) D 02/07/17 17:20 Monocytes % 10.0 % (3.8-10.2) 02/07/17 17:20 Band Neutrophils 14.0 % (0-10) H D 02/07/17 17:20 Platelet Estimate Increased (NORMAL) 02/07/17 17:20 Platelet Comment No clumping noted 02/07/17 17:20 Anisocytosis 2+ 02/07/17 17:20 Microcytosis 1+ 02/07/17 17:20 Sodium 129 mmol/L (136-145) L 02/08/17 05:18 Potassium 4.7 mmol/L (3.5-5.1) D 02/08/17 05:18 Chloride 90 mmol/L (98-107) L 02/08/17 05:18 Carbon Dioxide 20 mmol/L (21-32) L 02/08/17 05:18 Anion Gap 19 (8-16) H 02/08/17 05:18 BUN 89 mg/dL (7-18) H 02/08/17 05:18 Creatinine 2.9 mg/dL (0.55-1.02) H D 02/08/17 05:18 Creat Clearance w eGFR 12.81 (>60) 02/07/17 20:56 Random Glucose 97 mg/dL (74-106) D 02/08/17 05:18 Lactic Acid 1.0 mmol/L (0.4-2.0) 02/08/17 05:18 Calcium 8.0 mg/dL (8.5-10.1) L 02/08/17 05:18 Phosphorus 7.0 mg/dL (2.5-4.9) H D 02/08/17 05:18 Magnesium 2.1 mg/dL (1.8-2.4) D 02/08/17 05:18 Total Bilirubin 0.3 mg/dL (0.2-1.0) 02/08/17 05:18 Direct Bilirubin 0.1 mg/dL (0.0-0.2) 02/08/17 05:18 AST 23 U/L (15-37) 02/08/17 05:18 ALT 19 U/L (12-78) 02/08/17 05:18 Alkaline Phosphatase 41 U/L (45-117) L 02/08/17 05:18 Creatine Kinase 41 IU/L (26-192) 02/07/17 17:20 Troponin I < 0.02 ng/ml (0.00-0.05) 02/07/17 17:20 Total Protein 6.7 g/dl (6.4-8.2) 02/08/17 05:18 Albumin 2.6 g/dl (3.4-5.0) L 02/08/17 05:18 Total Amylase 10 U/L (25-115) L D 02/07/17 21:00 Lipase 54 U/L (73-393) L 02/07/17 21:00 Current Medications Generic Name Dose Route Start Last Admin Trade Name Freq PRN Reason Stop Dose Admin Sodium Chloride 1,000 mls @ 100 mls/hr 02/07/17 18:45 02/07/17 21:18 Normal Saline - IV 100 mls/hr ASDIR RAISSA Administration Ondansetron HCl 4 mg 02/07/17 23:04 Zofran Injection IVPB Q8H PRN NAUSEA Pantoprazole Sodium 40 mg 02/08/17 10:00 02/08/17 11:04 Protonix 40mg Ivpb (Pre-Docked) IVPB 40 mg DAILY RAISSA Administration Potassium Chloride 40 meq 02/07/17 23:00 02/08/17 11:04 K-Dur - PO 40 meq DAILY RAISSA Administration Constitutional: Yes: No Distress Eyes: Yes: Conjunctiva Clear HENT: Yes: Normocephalic Neck: Yes: Supple Cardiovascular: Yes: Regular Rate and Rhythm Respiratory: Yes: Rhonchi (bilaterally) Gastrointestinal Inspection: Yes: Scars (vertical midline and RLQ incisions healed, visible bowel loops) ...Auscultate: Yes: Hypoactive Bowel Sounds ...Palpate: Yes: Soft, Other (nontender) ...Rectal Exam: Yes: Deferred (at pt's request) Extremities: Yes: Amputation (multiple acral finger autoamputations,), Cool, Cyanosis (hands), Shortened, Other (sausage shaped sclerodermatosis changes) Edema: No Neurological: Yes: Alert, Oriented Labs: CBC, BMP 02/08/17 05:18 02/08/17 05:18 INR, PTT INR 1.03 (0.82-1.09) 02/07/17 17:20 Imaging - Results X-ray: Image Reviewed (dilated small and large bowel loops but no obstruction) Cat Scan: Image Reviewed (no obstruction) Problem List - Problems (1) Pseudo-obstruction of intestine Code(s): K59.8 - OTHER SPECIFIED FUNCTIONAL INTESTINAL DISORDERS Assessment/Plan Betos vomiting appears to be the combination of opioid usage superimposed on her scleroderma associated gastroparesis and pseudobstruction which is resolving. Can advance diet as is tolerated. Continue PPI therapy given her laryngeal reflux and Bonner's. Discussed with Dr. Gill.
[2017-02-08] MEDS ORDERED: PNEUMOC 13-VAL CONJ-DIP CRM/PF 0.5 ML DISP.SYRIN IM ONE (18:54)
[2017-02-08] MEDS ORDERED: ONDANSETRON 4 MG/2 ML VIAL IVPB PRN (20:29)
[2017-02-08] MEDS ORDERED: SODIUM CHLORIDE 1,000 ML IV SCH (20:29)
[2017-02-08] MEDS ORDERED: PT OWN MED DRAWER 7, Y5N ONE (21:13)
[2017-02-08] MEDS: SODIUM CHLORIDE 1,000 ML IV SCH (21:25)
--- NOTE | 2017-02-09 07:01 | PN ---
Progress Note, Physician Chief Complaint: ID Remains most comfortable OFf antibiotics as no suspicion for infection - Current Medication List Current Medications: Active Medications Sodium Chloride (Normal Saline -) 1,000 mls @ 100 mls/hr IV ASDIR RAISSA Last Admin: 02/08/17 21:23 Dose: 100 mls/hr Ondansetron HCl (Zofran Injection) 4 mg IVPB Q8H PRN PRN Reason: NAUSEA Pantoprazole Sodium (Protonix 40mg Ivpb (Pre-Docked)) 40 mg IVPB DAILY RAISSA Pneumococcal 13-Valent Conj Vacc (Prevnar 13 Syringe -) 0.5 ml IM .ONCE ONE Stop: 02/08/17 18:55 Potassium Chloride (K-Dur -) 40 meq PO DAILY [facility] - Objective Vital Signs: Vital Signs Temperature 98.1 F 02/09/17 06:00 Pulse Rate 88 02/09/17 06:00 Respiratory Rate 18 02/09/17 06:00 Blood Pressure 87/50 02/09/17 06:00 O2 Sat by Pulse Oximetry (%) 92 L 02/08/17 21:00 Constitutional: Yes: Thin Neck: Yes: WNL, Supple Cardiovascular: Yes: Regular Rate and Rhythm, S1, S2. No: Gallop Respiratory: Yes: WNL, Regular, CTA Bilaterally, Rhonchi Gastrointestinal: Yes: Soft. No: Tenderness, Tenderness, Epigastrium Extremities: Yes: Other (Scleroderma amputations distal phalanx) Labs: CBC, BMP 02/08/17 05:18 02/08/17 05:18 INR, PTT INR 1.03 (0.82-1.09) 02/07/17 17:20 Problem List - Problems (1) Acute renal failure Code(s): N17.9 - ACUTE KIDNEY FAILURE, UNSPECIFIED Qualifiers: Acute renal failure type: unspecified Qualified Code(s): N17.9 - Acute kidney failure, unspecified (2) CREST variant of scleroderma Code(s): M34.1 - CR(E)ST SYNDROME (3) Opioid dependence, uncomplicated Code(s): F11.20 - OPIOID DEPENDENCE, UNCOMPLICATED Assessment/Plan Microbiology 02/07/17 17:20 Blood - Peripheral Venous Blood Culture - Preliminary NO GROWTH OBTAINED AFTER 24 HOURS, INCUBATION TO CONTINUE FOR 4 DAYS. 02/07/17 17:20 Blood - Peripheral Venous Blood Culture - Preliminary NO GROWTH OBTAINED AFTER 24 HOURS, INCUBATION TO CONTINUE FOR 4 DAYS. Laboratory Tests 02/08/17 02/08/17 05:18 05:18 WBC 9.7 Hgb 10.9 Plt Count 339 BUN 89 H Creatinine 2.9 H D Direct Bilirubin 0.1 AST 23 ALT 19 Alkaline Phosphatase 41 L Acute kidney injury Opiate overdose again Scleroderma Plan As no sign symptoms of infection will stop following Recall as may be needed in the future Nicolasa CAVAZOS
[2017-02-09 07:41] LABS: BASOPHIL 0.1 % (0-2.0); EOSINOPHIL 1.3 % (0-4.5); MCH 27.7 pg (25.7-33.7); MCHC 32.9 g/dl (32.0-36.0); MEAN CELL VOLUME 84.1 fl (80-96); MEAN PLT VOLUME 8.5 fl (7.5-11.1); NEUTROPHILS 75.9 % (42.8-82.8); PLATELET COUNT 256 K/MM3 (134-434); RDW 20.9 % (11.6-15.6); WHITE BLOOD COUNT 5.2 K/mm3 (4.0-10.0)
[2017-02-09 08:24] LABS: ALBUMIN 2.1 g/dl (3.4-5.0); ANION GAP 14 (8-16); CALCIUM 7.8 mg/dL (8.5-10.1); CO2 18 mmol/L (21-32); GLUCOSE,RANDOM 72 mg/dL (74-106); MAGNESIUM 1.8 mg/dL (1.8-2.4)
--- NOTE | 2017-02-09 08:45 | PN ---
Progress Note, Physician Chief Complaint: on 8w off ICU; sleepy, but arousbale and able to understand and ask questions apprpriately; loose stools; no vomiting; no pain said she took too much opiates at home aware she should have not taken any at all - Current Medication List Current Medications: Active Medications Sodium Chloride (Normal Saline -) 1,000 mls @ 100 mls/hr IV ASDIR RAISSA Last Admin: 02/08/17 21:23 Dose: 100 mls/hr Ondansetron HCl (Zofran Injection) 4 mg IVPB Q8H PRN PRN Reason: NAUSEA Pantoprazole Sodium (Protonix 40mg Ivpb (Pre-Docked)) 40 mg IVPB DAILY RAISSA Pneumococcal 13-Valent Conj Vacc (Prevnar 13 Syringe -) 0.5 ml IM .ONCE ONE Stop: 02/08/17 18:55 Last Admin: 02/09/17 07:16 Dose: Not Given Potassium Chloride (K-Dur -) 40 meq PO DAILY [facility] - Objective Vital Signs: Vital Signs Temperature 98.1 F 02/09/17 06:00 Pulse Rate 88 02/09/17 06:00 Respiratory Rate 18 02/09/17 06:00 Blood Pressure 87/50 02/09/17 06:00 O2 Sat by Pulse Oximetry (%) 92 L 02/08/17 21:00 Constitutional: Yes: No Distress, Calm Eyes: Yes: Conjunctiva Clear HENT: Yes: Atraumatic Neck: Yes: Supple Cardiovascular: Yes: Regular Rate and Rhythm Respiratory: Yes: CTA Bilaterally Gastrointestinal: Yes: Soft. No: Distention, Tenderness Genitourinary: No: CVA Tenderness - Left, CVA Tenderness - Right Musculoskeletal: No: Joint Stiffness, Joint Swelling Extremities: No: Cold, Cool, Cyanosis Edema: No Peripheral Pulses WNL: Yes Integumentary: No: Rash, Venous Stasis Changes Neurological: Yes: WNL, Alert, Oriented ...Motor Strength: WNL Psychiatric: Yes: WNL, Alert, Oriented. No: Agitated, Suicidal Ideation Labs: CBC, BMP 02/09/17 06:00 INR, PTT INR 1.03 (0.82-1.09) 02/07/17 17:20 - ....Imaging Other: Report Reviewed Assessment/Plan This is 52 yo woman with h/o COPD, scleroderma, raynauds s/p digit amputations , CREST syndrome with gastric dysmotility, severe protein chronic back pain s/p multiple surgeries on chronic opioids with multiple admission over the last six months most recently admitted after pneumoperitoneum admitted with progressive SOB, nausea and vomiting. In the ED lethargic. She was given narcan x2 with some improvement. Admitted with ARF and severe lactic acidosis and hyponatremia ; UTOX (+) opioids. advance diet; f/u labs GI and renal f./u d/w pt stop all opiates; she was not prescribed opiates by anyone in awhile; d/ w pt detox outpt versus inpatient after DC from [facility]; advised to call if needs help, do not get OOB alone d?w pt and staff d/w pt and staff also decubs and aspiration pfx f/u labs
[2017-02-09 09:47] LABS: BILIRUBIN,TOTAL 0.3 mg/dL (0.2-1.0); SGOT/AST 41 U/L (15-37); TOT PROT 5.6 g/dl (6.4-8.2)
[2017-02-09] MEDS: POTASSIUM CHLORIDE TABS 20 MEQ TABLET.ER (FP) PO SCH (09:50)
[2017-02-09] MEDS ORDERED: PANTOPRAZOLE SODIUM 40 MG/100 ML PRE-DOCKED IVPB SCH (10:00)
[2017-02-09 10:17] LABS: COCKROFT - GAULT 53.0485; CREATININE 0.8 mg/dL (0.55-1.02); PHOSPHOROUS 2.4 mg/dL (2.5-4.9); SGPT/ALT 25 U/L (12-78)
[2017-02-09 10:18] LABS: ALK PHOS 34 U/L (45-117)
--- NOTE | 2017-02-09 11:21 | PN ---
Progress Note (short form) - Note Progress Note: Feels overall better today. No CP or SOB. Intake & Output 02/06/17 02/07/17 02/08/17 02/09/17 23:59 23:59 23:59 23:59 Intake Total 4400 700 Output Total 300 1200 300 Balance -300 3200 400 Weight 81 lb 81 lb 91 lb 1.6 oz Last Vital Signs Temp Pulse Resp BP Pulse Ox 98.4 F 98 H 20 84/56 93 L 02/09/17 09:00 02/09/17 09:00 02/09/17 09:00 02/09/17 09:00 02/09/17 09:00 Active Medications Sodium Chloride (Normal Saline -) 1,000 mls @ 100 mls/hr IV ASDIR [facility] Last Admin: 02/08/17 21:23 Dose: 100 mls/hr Ondansetron HCl (Zofran Injection) 4 mg IVPB Q8H PRN PRN Reason: NAUSEA Pantoprazole Sodium (Protonix 40mg Ivpb (Pre-Docked)) 40 mg IVPB DAILY [facility] Last Admin: 02/09/17 09:50 Dose: 40 mg Potassium Chloride (K-Dur -) 40 meq PO DAILY [facility] Last Admin: 02/09/17 09:50 Dose: 40 meq Patient seen and examined in the ICU. Drowsy but easily arousable. Denies CP, SOB, or significant cough. Although abdomen slightly distended -> BM yesterday. Constitutional: Yes: NAD, Cachectic Eyes: Yes: PERRL Cardiovascular: Yes: Regular Rate and Rhythm, S1, S2 Respiratory: Yes: Diminished Gastrointestinal: Yes: Normal Bowel Sounds, NT, (+) BS Extremities: Yes: Cool, Cyanosis Edema: No Integumentary: Yes: Pressure Ulcer (10x 10 stage 2 sacral), Venous Stasis Changes Neurological: Yes: Alert Labs: Laboratory Results - last 24 hr 02/08/17 02/08/17 02/08/17 08:00 08:00 14:00 WBC RBC Hgb Hct MCV MCHC RDW Plt Count MPV Neutrophils % Lymphocytes % Monocytes % Eosinophils % Basophils % Sodium Potassium Chloride Carbon Dioxide Anion Gap BUN Creatinine Creat Clearance w eGFR Random Glucose Serum Osmolality 297 Calcium Phosphorus Magnesium Total Bilirubin AST ALT Alkaline Phosphatase Total Protein Albumin Urine Osmolality 531 D U Random Total Protein Ur Random Sodium 5 Urine Creatinine 02/08/17 02/08/17 02/09/17 14:00 14:00 06:00 WBC 5.2 D RBC 3.42 L Hgb 9.5 L D Hct 28.8 L MCV 84.1 MCHC 32.9 RDW 20.9 H Plt Count 256 D MPV 8.5 Neutrophils % 75.9 D Lymphocytes % 11.3 Monocytes % 11.4 H Eosinophils % 1.3 Basophils % 0.1 Sodium Potassium Chloride Carbon Dioxide Anion Gap BUN Creatinine Creat Clearance w eGFR Random Glucose Serum Osmolality Calcium Phosphorus Magnesium Total Bilirubin AST ALT Alkaline Phosphatase Total Protein Albumin Urine Osmolality U Random Total Protein 69 H Ur Random Sodium Urine Creatinine 71.6 02/09/17 06:00 WBC RBC Hgb Hct MCV MCHC RDW Plt Count MPV Neutrophils % Lymphocytes % Monocytes % Eosinophils % Basophils % Sodium 134 L Potassium 3.2 L D Chloride 102 D Carbon Dioxide 18 L Anion Gap 14 BUN 48 H D Creatinine 0.8 D Creat Clearance w eGFR > 60 Random Glucose 72 L D Serum Osmolality Calcium 7.8 L Phosphorus 2.4 L D Magnesium 1.8 Total Bilirubin 0.3 AST 41 H D ALT 25 D Alkaline Phosphatase 34 L Total Protein 5.6 L Albumin 2.1 L Urine Osmolality U Random Total Protein Ur Random Sodium Urine Creatinine Problem List - Problems (1) Acute renal failure Code(s): N17.9 - ACUTE KIDNEY FAILURE, UNSPECIFIED Qualifiers: Acute renal failure type: unspecified Qualified Code(s): N17.9 - Acute kidney failure, unspecified (2) CREST variant of scleroderma Code(s): M34.1 - CR(E)ST SYNDROME (3) Dehydration Code(s): E86.0 - DEHYDRATION (4) Hyponatremia Code(s): E87.1 - HYPO-OSMOLALITY AND HYPONATREMIA (5) Opioid dependence, uncomplicated Code(s): F11.20 - OPIOID DEPENDENCE, UNCOMPLICATED (6) Abdominal pain Code(s): R10.9 - UNSPECIFIED ABDOMINAL PAIN (7) COPD (chronic obstructive pulmonary disease) Code(s): J44.9 - CHRONIC OBSTRUCTIVE PULMONARY DISEASE, UNSPECIFIED (8) Lactic acidosis Code(s): E87.2 - ACIDOSIS (9) Raynauds disease Code(s): I73.00 - RAYNAUD'S SYNDROME WITHOUT GANGRENE (10) Sepsis Code(s): A41.9 - SEPSIS, UNSPECIFIED ORGANISM (11) Vomiting Code(s): R11.10 - VOMITING, UNSPECIFIED Assessment/Plan PO as tolerated O2 as needed BD TX PRN Monitor off systemic steroids Monitor off ABX Dr Owens
--- NOTE | 2017-02-09 12:59 | PN ---
Progress Note (short form) - Note Progress Note: Renal Follow up for PRASHANT/Hyponatremia pt seen and examined at the bedside awake and alert no acute complaints tolerating oral diet as per the patient Vital Signs Temperature 98.4 F 02/09/17 09:00 Pulse Rate 98 H 02/09/17 09:00 Respiratory Rate 20 02/09/17 09:00 Blood Pressure 84/56 02/09/17 09:00 O2 Sat by Pulse Oximetry (%) 93 L 02/09/17 09:00 Intake & Output 02/06/17 02/07/17 02/08/17 02/09/17 23:59 23:59 23:59 23:59 Intake Total 4400 700 Output Total 300 1200 300 Balance -300 3200 400 Weight 81 lb 81 lb 91 lb 1.6 oz Gen: NAD, awake on NC CVS: RRR, No M/R Lungs: CTA, no rales or wheeze Abd: soft NT/ND Ext: No edema, clubbing or edema. Multiple amputations. CBC, BMP 02/09/17 06:00 02/09/17 06:00 Laboratory Tests 02/09/17 06:00 Calcium 7.8 L Phosphorus 2.4 L D Magnesium 1.8 Current Medications Heparin Sodium (Porcine) (Heparin -) 5,000 unit SQ BID [facility] Sodium Chloride (Normal Saline -) 1,000 mls @ 100 mls/hr IV ASDIR [facility] Last Admin: 02/08/17 21:23 Dose: 100 mls/hr Ondansetron HCl (Zofran Injection) 4 mg IVPB Q8H PRN PRN Reason: NAUSEA Pantoprazole Sodium (Protonix -) 40 mg PO DAILY [facility] Potassium Chloride (K-Dur -) 40 meq PO DAILY [facility] Last Admin: 02/09/17 09:50 Dose: 40 meq Potassium Phos/Sodium Phos (Phos-Nak Packet -) 1 packet PO TID [facility] Stop: 02/11/17 06:01 A/P 52 year old woman with PMhx of CREST syndrome, Reynods s/p digit amputations, Scleroderma w/o Hx of renal crisis, Chronic Back pain who presented with N/V and found to have Hypovolemic Shock with Lactic acidosis and Renal failure. #Acute Kidney Injury secondary to acute hypovolemia Renal function much improved decrease IVF rate Trend BUN/Cr #Hypovolemic Hyponatremia Serum Na now improved to near normal limits continue isotonic saline and regular diet Trend na Q24 hours #Metabolic Acidosis/Lactic Acidosis co-existing Metabolic alkalosis as well etiology lactic acidosis/renal failure with contraction alkalosis Trend Bicarb continue istonic saline for now #Nausea/Vomiting/Shock improved Srinivasan Tijerina DO
[2017-02-09] MEDS ORDERED: SODIUM CHLORIDE 1,000 ML IV SCH (13:00)
[2017-02-09] MEDS: NAPH,MB-DB/K PH,MBDB POWDER PACKET PO SCH ×2 (13:47→21:15)
[2017-02-09] MEDS: SODIUM CHLORIDE 1,000 ML IV SCH (15:30)
[2017-02-09] MEDS: HEPARIN NA (PORCINE) 5,000 UNITS/ML 1ML VIAL SQ SCH (21:13)
[2017-02-10] MEDS: NAPH,MB-DB/K PH,MBDB POWDER PACKET PO SCH ×3 (05:48→21:15)
[2017-02-10 07:15] LABS: EOSINOPHIL 0.7 % (0-4.5); MCH 28.2 pg (25.7-33.7); MCHC 33.9 g/dl (32.0-36.0); MEAN CELL VOLUME 83.3 fl (80-96); NEUTROPHILS 75.3 % (42.8-82.8); PLATELET COUNT 271 K/MM3 (134-434); RDW 21.2 % (11.6-15.6); WHITE BLOOD COUNT 5.2 K/mm3 (4.0-10.0)
[2017-02-10 07:49] LABS: ALBUMIN 1.9 g/dl (3.4-5.0); ANION GAP 8 (8-16); CALCIUM 7.7 mg/dL (8.5-10.1); CO2 22 mmol/L (21-32); GLUCOSE,RANDOM 83 mg/dL (74-106); MAGNESIUM 1.4 mg/dL (1.8-2.4); SGOT/AST 25 U/L (15-37)
[2017-02-10 07:56] LABS: ALK PHOS 31 U/L (45-117); BILIRUBIN,TOTAL 0.3 mg/dL (0.2-1.0); CREATININE 0.5 mg/dL (0.55-1.02); SGPT/ALT 20 U/L (12-78)
[2017-02-10 08:24] LABS: PHOSPHOROUS 0.9 mg/dL (2.5-4.9)
[2017-02-10] MEDS: HEPARIN NA (PORCINE) 5,000 UNITS/ML 1ML VIAL SQ SCH ×2 (10:02→21:14)
[2017-02-10] MEDS: PANTOPRAZOLE 40 MG TABLET (FP) PO SCH (10:02)
[2017-02-10] MEDS: POTASSIUM CHLORIDE TABS 20 MEQ TABLET.ER (FP) PO SCH (10:02)
--- NOTE | 2017-02-10 11:14 | PN ---
Progress Note (short form) - Note Progress Note: Feels OK today. No CP or SOB. Intake & Output 02/07/17 02/08/17 02/09/17 02/10/17 23:59 23:59 23:59 23:59 Intake Total 4400 2146 1000 Output Total 300 1200 700 Balance -300 3200 1446 1000 Weight 81 lb 81 lb 91 lb 1.6 oz 99 lb 11.2 oz Last Vital Signs Temp Pulse Resp BP Pulse Ox 98.7 F 89 18 101/60 93 L 02/10/17 05:58 02/10/17 05:58 02/10/17 05:58 02/10/17 05:58 02/09/17 21:00 Active Medications Heparin Sodium (Porcine) (Heparin -) 5,000 unit SQ BID [facility] Last Admin: 02/10/17 10:02 Dose: 5,000 unit Sodium Chloride (Normal Saline -) 1,000 mls @ 84 mls/hr IV ASDIR [facility] Last Admin: 02/09/17 15:30 Dose: 84 mls/hr Ondansetron HCl (Zofran Injection) 4 mg IVPB Q8H PRN PRN Reason: NAUSEA Pantoprazole Sodium (Protonix -) 40 mg PO DAILY [facility] Last Admin: 02/10/17 10:02 Dose: 40 mg Potassium Chloride (K-Dur -) 40 meq PO DAILY [facility] Last Admin: 02/10/17 10:02 Dose: 40 meq Potassium Phos/Sodium Phos (Phos-Nak Packet -) 1 packet PO TID [facility] Stop: 02/11/17 06:01 Last Admin: 02/10/17 05:48 Dose: 1 packet Constitutional: Yes: NAD, Cachectic Eyes: Yes: PERRL Cardiovascular: Yes: Regular Rate and Rhythm, S1, S2 Respiratory: Yes: Diminished Gastrointestinal: Yes: Normal Bowel Sounds, NT, (+) BS Extremities: Yes: Cool, Cyanosis Edema: No Integumentary: Yes: Pressure Ulcer (10x 10 stage 2 sacral), Venous Stasis Changes Neurological: Yes: Alert Labs: Laboratory Results - last 24 hr 02/10/17 02/10/17 06:10 06:10 WBC 5.2 RBC 3.20 L Hgb 9.0 L Hct 26.7 L MCV 83.3 MCHC 33.9 RDW 21.2 H Plt Count 271 MPV 8.0 Neutrophils % 75.3 Lymphocytes % 10.3 Monocytes % 13.7 H Eosinophils % 0.7 Basophils % 0.0 Sodium 136 Potassium 3.7 Chloride 106 Carbon Dioxide 22 D Anion Gap 8 BUN 22 H D Creatinine 0.5 L D Creat Clearance w eGFR > 60 Random Glucose 83 Calcium 7.7 L Phosphorus 0.9 L* Magnesium 1.4 L D Total Bilirubin 0.3 AST 25 D ALT 20 Alkaline Phosphatase 31 L Total Protein 5.0 L Albumin 1.9 L Problem List - Problems (1) Acute renal failure Code(s): N17.9 - ACUTE KIDNEY FAILURE, UNSPECIFIED Qualifiers: Acute renal failure type: unspecified Qualified Code(s): N17.9 - Acute kidney failure, unspecified (2) CREST variant of scleroderma Code(s): M34.1 - CR(E)ST SYNDROME (3) Dehydration Code(s): E86.0 - DEHYDRATION (4) Hyponatremia Code(s): E87.1 - HYPO-OSMOLALITY AND HYPONATREMIA (5) Opioid dependence, uncomplicated Code(s): F11.20 - OPIOID DEPENDENCE, UNCOMPLICATED (6) Abdominal pain Code(s): R10.9 - UNSPECIFIED ABDOMINAL PAIN (7) COPD (chronic obstructive pulmonary disease) Code(s): J44.9 - CHRONIC OBSTRUCTIVE PULMONARY DISEASE, UNSPECIFIED (8) Lactic acidosis Code(s): E87.2 - ACIDOSIS (9) Raynauds disease Code(s): I73.00 - RAYNAUD'S SYNDROME WITHOUT GANGRENE (10) Sepsis Code(s): A41.9 - SEPSIS, UNSPECIFIED ORGANISM (11) Vomiting Code(s): R11.10 - VOMITING, UNSPECIFIED Assessment/Plan Replete lytes PO as tolerated O2 as needed BD TX PRN Monitor off systemic steroids Monitor off ABX Dr Owens
--- NOTE | 2017-02-10 11:17 | PN ---
Progress Note, Physician Chief Complaint: diarrhea; low K and Ph - repleted; urinary retention 560 cc - will insert Collier and call ; hold flomax b/o low BP. - Current Medication List Current Medications: Active Medications Heparin Sodium (Porcine) (Heparin -) 5,000 unit SQ BID [facility] Last Admin: 02/10/17 10:02 Dose: 5,000 unit Sodium Chloride (Normal Saline -) 1,000 mls @ 84 mls/hr IV ASDIR [facility] Last Admin: 02/09/17 15:30 Dose: 84 mls/hr Ondansetron HCl (Zofran Injection) 4 mg IVPB Q8H PRN PRN Reason: NAUSEA Pantoprazole Sodium (Protonix -) 40 mg PO DAILY [facility] Last Admin: 02/10/17 10:02 Dose: 40 mg Potassium Chloride (K-Dur -) 40 meq PO DAILY [facility] Last Admin: 02/10/17 10:02 Dose: 40 meq Potassium Phos/Sodium Phos (Phos-Nak Packet -) 1 packet PO TID [facility] Stop: 02/11/17 06:01 Last Admin: 02/10/17 05:48 Dose: 1 packet - Objective Vital Signs: Vital Signs Temperature 98.7 F 02/10/17 05:58 Pulse Rate 89 02/10/17 05:58 Respiratory Rate 18 02/10/17 05:58 Blood Pressure 101/60 02/10/17 05:58 O2 Sat by Pulse Oximetry (%) 93 L 02/09/17 21:00 Constitutional: Yes: No Distress, Calm Eyes: Yes: Conjunctiva Clear HENT: Yes: Atraumatic Neck: Yes: Supple Cardiovascular: Yes: Regular Rate and Rhythm Respiratory: Yes: CTA Bilaterally Gastrointestinal: Yes: Soft. No: Distention, Tenderness Genitourinary: No: CVA Tenderness - Left, CVA Tenderness - Right Musculoskeletal: No: Joint Stiffness, Joint Swelling, Muscle Pain Extremities: No: Calf Tenderness, Cold, Cool, Cyanosis Edema: No Peripheral Pulses WNL: Yes Neurological: Yes: WNL, Alert, Oriented ...Motor Strength: WNL Psychiatric: Yes: WNL, Alert, Oriented. No: Agitated, Suicidal Ideation Labs: CBC, BMP 02/10/17 06:10 02/10/17 06:10 INR, PTT INR 1.03 (0.82-1.09) 02/07/17 17:20 - ....Imaging Other: Report Reviewed Assessment/Plan This is 52 yo woman with h/o COPD, scleroderma, raynauds s/p digit amputations , CREST syndrome with gastric dysmotility, severe protein chronic back pain s/p multiple surgeries on chronic opioids with multiple admission over the last six months most recently admitted after pneumoperitoneum admitted with progressive SOB, nausea and vomiting. In the ED lethargic. She was given narcan x2 with some improvement. Admitted with ARF and severe lactic acidosis and hyponatremia ; UTOX (+) opioids. advance diet; GI f/u for diarrhea; check stools CDiff, O/P, Cx f/u labs, renal f/u eval; Nando in d/w pt stop all opiates; she was not prescribed opiates by anyone in awhile; d/ w pt detox outpt versus inpatient after DC from [facility] falls pfx; advised to call if needs help, do not get OOB alone d/w pt and staff ; bed alarm on d/w pt and staff also decubs and aspiration pfx
[2017-02-10] MEDS ORDERED: MAGNESIUM SULF 50% (8.12 MEQ/2 ML-1 GM VIAL) IVPB ONE (12:30)
[2017-02-10] MEDS ORDERED: POTASSIUM PHOSPHATE 15 MM in DEXTROSE 5%-WATER - 250 ML IVPB ONE (13:00)
[2017-02-10] MEDS ORDERED: POTASSIUM PHOSPHATE 40 MM in DEXTROSE 5%-WATER - 500 ML IVPB ONE (14:00)
[2017-02-10] MEDS: SODIUM CHLORIDE 1,000 ML IV SCH (15:34)
[2017-02-10] MEDS: LIDOCAINE 5% TOPICAL PATCH TP SCH (21:15)
[2017-02-10] MEDS: IBUPROFEN 400 MG TABLET (FP) PO PRN (21:21)
[2017-02-10] MEDS: LIDOCAINE PATCH REMOVAL MC SCH (21:46)
[2017-02-11] MEDS: ACETAMINOPHEN 325 MG TABLET (FP) PO PRN ×2 (01:52→12:00)
[2017-02-11] MEDS: SODIUM CHLORIDE 1,000 ML IV SCH (02:42)
[2017-02-11] MEDS: NAPH,MB-DB/K PH,MBDB POWDER PACKET PO SCH (05:55)
[2017-02-11] MEDS: IBUPROFEN 400 MG TABLET (FP) PO PRN (08:11)
[2017-02-11 08:33] LABS: CALCIUM 7.6 mg/dL (8.5-10.1); COCKROFT - GAULT 131.6055; CREATININE 0.4 mg/dL (0.55-1.02); MAGNESIUM 2.3 mg/dL (1.8-2.4); PHOSPHOROUS 1.5 mg/dL (2.5-4.9)
--- NOTE | 2017-02-11 09:07 | PN ---
Progress Note (short form) - Note Progress Note: PULMONARY AWAKE/ALERT NO SOB/CP VSS/AFEBRILE ANICTERIC DISTANT B/L BREATH SOUNDS S1S2 BS+ NO EDEMA LABS/MEDS/NOTES REVIEWED (1) Acute renal failure Code(s): N17.9 - ACUTE KIDNEY FAILURE, UNSPECIFIED Qualifiers: Acute renal failure type: unspecified Qualified Code(s): N17.9 - Acute kidney failure, unspecified (2) CREST variant of scleroderma Code(s): M34.1 - CR(E)ST SYNDROME (3) Dehydration Code(s): E86.0 - DEHYDRATION (4) Hyponatremia Code(s): E87.1 - HYPO-OSMOLALITY AND HYPONATREMIA (5) Opioid dependence, uncomplicated Code(s): F11.20 - OPIOID DEPENDENCE, UNCOMPLICATED (6) Abdominal pain Code(s): R10.9 - UNSPECIFIED ABDOMINAL PAIN (7) COPD (chronic obstructive pulmonary disease) Code(s): J44.9 - CHRONIC OBSTRUCTIVE PULMONARY DISEASE, UNSPECIFIED (8) Lactic acidosis Code(s): E87.2 - ACIDOSIS (9) Raynauds disease Code(s): I73.00 - RAYNAUD'S SYNDROME WITHOUT GANGRENE (10) Sepsis Code(s): A41.9 - SEPSIS, UNSPECIFIED ORGANISM (11) Vomiting Code(s): R11.10 - VOMITING, UNSPECIFIED Assessment/Plan PO as tolerated O2 as needed BD TX PRN Monitor off systemic steroids Monitor off ABX Sandra ZAPIEN MD
[2017-02-11] MEDS: POTASSIUM CHLORIDE TABS 20 MEQ TABLET.ER (FP) PO SCH (10:10)
[2017-02-11] MEDS: PANTOPRAZOLE 40 MG TABLET (FP) PO SCH (10:10)
[2017-02-11] MEDS: LIDOCAINE 5% TOPICAL PATCH TP SCH (10:11)
[2017-02-11] MEDS: HEPARIN NA (PORCINE) 5,000 UNITS/ML 1ML VIAL SQ SCH ×2 (10:11→22:24)
--- NOTE | 2017-02-11 10:25 | PN ---
Progress Note (short form) - Note Progress Note: Renal Follow up for PRASHANT/Hyponatremia pt seen and examined at the bedside no acute complaints + diarrhea no N/V no chest pain, sob on IVF Vital Signs Temperature 97.3 F L 02/11/17 06:00 Pulse Rate 69 02/11/17 06:00 Respiratory Rate 20 02/11/17 06:00 Blood Pressure 105/71 02/11/17 06:00 O2 Sat by Pulse Oximetry (%) 96 02/10/17 21:00 Intake & Output 02/08/17 02/09/17 02/10/17 02/11/17 23:59 23:59 23:59 23:59 Intake Total 4400 2146 3330 670 Output Total 1200 700 Balance 3200 1446 3330 670 Weight 81 lb 91 lb 1.6 oz 99 lb 11.2 oz 113 lb Gen: NAD, awake on NC CVS: RRR, No M/R Lungs: CTA, no rales or wheeze Abd: soft NT/ND Ext: No edema, clubbing or edema. Multiple amputations. CBC, BMP 02/10/17 06:10 02/11/17 06:30 Laboratory Tests 02/11/17 06:30 Calcium 7.6 L Phosphorus 1.5 L D Magnesium 2.3 D Current Medications Acetaminophen (Tylenol -) 650 mg PO Q6H PRN PRN Reason: FEVER OR PAIN Last Admin: 02/11/17 01:52 Dose: 650 mg Heparin Sodium (Porcine) (Heparin -) 5,000 unit SQ BID [facility] Last Admin: 02/11/17 10:11 Dose: 5,000 unit Ibuprofen (Motrin -) 400 mg PO Q8H PRN PRN Reason: PAIN Last Admin: 02/11/17 08:11 Dose: 400 mg Lidocaine (Lidoderm Patch -) 1 patch TP DAILY [facility] Last Admin: 02/11/17 10:11 Dose: 1 patch Miscellaneous (Lidoderm Patch Removal) 1 each MC DAILY@2200 [facility] Last Admin: 02/10/17 21:46 Dose: Not Given Ondansetron HCl (Zofran Injection) 4 mg IVPB Q8H PRN PRN Reason: NAUSEA Pantoprazole Sodium (Protonix -) 40 mg PO DAILY [facility] Last Admin: 02/11/17 10:10 Dose: 40 mg Potassium Chloride (K-Dur -) 40 meq PO DAILY [facility] Last Admin: 02/11/17 10:10 Dose: 40 meq A/P 52 year old woman with PMhx of CREST syndrome, Reynods s/p digit amputations, Scleroderma w/o Hx of renal crisis, Chronic Back pain who presented with N/V and found to have Hypovolemic Shock with Lactic acidosis and Renal failure. #Acute Kidney Injury secondary to acute hypovolemia Renal function now at baseline decrease IVF rate to 60cc per hour #Hypovolemic Hyponatremia Serum na now normal #Metabolic Acidosis/Lactic Acidosis pt now with diarrhea start sodium bicarb 650mg Daily #Diarrhea Check stool studies #Hypophosphtemia Give IV K phos 30mmol x 1 Trend daily phos #Nausea/Vomiting/Shock improved Srinivasan Tijerina DO
[2017-02-11] MEDS ORDERED: SODIUM CHLORIDE 1,000 ML IV SCH (10:30)
[2017-02-11] MEDS ORDERED: LIDOCAINE 5% TOPICAL PATCH TP SCH (10:58)
[2017-02-11] MEDS ORDERED: POTASSIUM PHOSPHATE 30 MM in DEXTROSE 5%-WATER - 500 ML IVPB ONE (11:00)
--- NOTE | 2017-02-11 11:00 | PN ---
Progress Note, Physician Chief Complaint: in bed feels better less diarrhea ate OK no vomiting; wants to go home; asked for pain pills for her back; I d/w her should stop all opiates and use alternative pain meds; I called pain management/ neurology and also dr Marquis Robledo for detox and psychitary dr Hanley r/o depression; I advised pt to go to Detox after DC from [facility] (either InPT or OutPT detox/ rehab) she said she will look into it. - Current Medication List Current Medications: Active Medications Acetaminophen (Tylenol -) 650 mg PO Q6H PRN PRN Reason: FEVER OR PAIN Last Admin: 02/11/17 01:52 Dose: 650 mg Gabapentin (Neurontin -) 100 mg PO TID [facility] Heparin Sodium (Porcine) (Heparin -) 5,000 unit SQ BID [facility] Last Admin: 02/11/17 10:11 Dose: 5,000 unit Potassium Phosphate 30 mm/ (Dextrose) 510 mls @ 62.5 mls/hr IVPB ONCE ONE Stop: 02/11/17 19:09 Sodium Chloride (Normal Saline -) 1,000 mls @ 60 mls/hr IV ASDIR [facility] Ibuprofen (Motrin -) 400 mg PO Q8H PRN PRN Reason: PAIN Last Admin: 02/11/17 08:11 Dose: 400 mg Lidocaine (Lidoderm Patch -) 2 patch TP DAILY [facility] Miscellaneous (Lidoderm Patch Removal) 1 each MC DAILY@2200 [facility] Last Admin: 02/10/17 21:46 Dose: Not Given Ondansetron HCl (Zofran Injection) 4 mg IVPB Q8H PRN PRN Reason: NAUSEA Pantoprazole Sodium (Protonix -) 40 mg PO DAILY [facility] Last Admin: 02/11/17 10:10 Dose: 40 mg Potassium Chloride (K-Dur -) 40 meq PO DAILY [facility] Last Admin: 02/11/17 10:10 Dose: 40 meq Sodium Bicarbonate (Sodium Bicarbonate -) 650 mg PO DAILY [facility] - Objective Vital Signs: Vital Signs Temperature 97.3 F L 02/11/17 06:00 Pulse Rate 69 02/11/17 06:00 Respiratory Rate 20 02/11/17 06:00 Blood Pressure 105/71 02/11/17 06:00 O2 Sat by Pulse Oximetry (%) 96 02/10/17 21:00 Constitutional: Yes: No Distress, Calm Eyes: Yes: Conjunctiva Clear HENT: Yes: Atraumatic Neck: Yes: Supple Cardiovascular: Yes: Regular Rate and Rhythm Respiratory: Yes: CTA Bilaterally Gastrointestinal: Yes: Soft. No: Distention, Tenderness Genitourinary: No: CVA Tenderness - Left, CVA Tenderness - Right Musculoskeletal: No: Joint Stiffness, Joint Swelling Extremities: No: Cold, Cool, Cyanosis Edema: No Integumentary: No: Rash, Venous Stasis Changes Neurological: Yes: WNL, Alert, Oriented ...Motor Strength: WNL Psychiatric: Yes: WNL, Alert, Oriented. No: Agitated, Suicidal Ideation Labs: CBC, BMP 02/10/17 06:10 02/11/17 06:30 INR, PTT INR 1.03 (0.82-1.09) 02/07/17 17:20 - ....Imaging Other: Report Reviewed Assessment/Plan This is 52 yo woman with h/o COPD, scleroderma, raynauds s/p digit amputations , CREST syndrome with gastric dysmotility, severe protein chronic back pain s/p multiple surgeries on chronic opioids with multiple admission over the last six months most recently admitted after pneumoperitoneum admitted with progressive SOB, nausea and vomiting. In the ED lethargic. She was given narcan x2 with some improvement. Admitted with ARF and severe lactic acidosis and hyponatremia ; UTOX (+) opioids. advance diet; GI f/u for diarrhea; check stools CDiff, O/P, Cx f/u labs, renal f/u urinary retention resolved completely, pt able to urinate OK d/w pt stop all opiates; d/w pt detox outpt versus inpatient after DC from ; see above falls pfx; advised to call if needs help, do not get OOB alone d/w pt and staff ; bed alarm on d/w pt and staff also decubs and aspiration pfx
--- NOTE | 2017-02-11 11:50 | CONSULT ---
[facility] Reason for Current Admission/Consult: opioid pain management Referred by:: Eva Gonzalez MD - History History of Present Illness: 52 y/o woman seen by me because her pvt. MD wants her off opioid use for pain.Pt. makes it clear that she wants to continue on her pain meds until which time there is a substitute. 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 Normal coronaries on cardiac cath and EF 65% with mild AI, trace MR and TR on echo @ [facility] [place] 03/31) Pulmonary: Yes: Asthma, COPD, Pneumonia, Other (lung mass of undetermined etiology) Gastrointestinal: Yes: Constipation, Diverticulitis, Diverticulosis (small bowel diverticular perforation, scleroderma affecting the esophagus, Bonner's esophagus, Schatzki ring,, antral ulcer, gastroparesis related to scleroderma), GERD (with long segment Bonner's esophagus and patent Schatzki ring), Peptic Ulcer Disease (antral ulcer ), Other (Bonner's esophagus, GERD, Schatzki ring, perforation of small bowel diverticulum, antral ulcer, scleroderma causing esophageal dysmotility and gastroparesis, GERD with long segment Bonner's esophagus,Schatzki ring,GAVE syndrome) Renal/: Yes: Renal Failure ...LMP Comment: Unknown Infectious Disease: Yes: MRSA (bursitis) Psych: Yes: Addictions (marijuana,tobacco and prescription narcotics) Musculoskeletal: Yes: Chronic low back pain, Other (has spinal stimulator) Rheumatology: Yes: Vasculitis, Other (Scleroderma, Raynauds and CREST syndrome) Endocrine: Yes: Hypothyroidism, Other (Malnutrition, osteoporosis) Dermatology: Yes: Cellulitis - Past Surgical History Past Surgical History: Yes: Appendectomy, Colonoscopy, Upper Endoscopy Additional Surgical History: 12/31 exploratory laparotomy - nothing resected - Significant Medical Findings: Laboratory Last Values WBC 5.2 K/mm3 (4.0-10.0) 02/10/17 06:10 RBC 3.20 M/mm3 (3.60-5.2) L 02/10/17 06:10 Hgb 9.0 GM/dL (10.7-15.3) L 02/10/17 06:10 Hct 26.7 % (32.4-45.2) L 02/10/17 06:10 MCV 83.3 fl (80-96) 02/10/17 06:10 MCHC 33.9 g/dl (32.0-36.0) 02/10/17 06:10 RDW 21.2 % (11.6-15.6) H 02/10/17 06:10 Plt Count 271 K/MM3 (134-434) 02/10/17 06:10 MPV 8.0 fl (7.5-11.1) 02/10/17 06:10 Neutrophils % 75.3 % (42.8-82.8) 02/10/17 06:10 Lymphocytes % 10.3 % (8-40) 02/10/17 06:10 Monocytes % 13.7 % (3.8-10.2) H 02/10/17 06:10 Eosinophils % 0.7 % (0-4.5) 02/10/17 06:10 Basophils % 0.0 % (0-2.0) 02/10/17 06:10 Band Neutrophils 14.0 % (0-10) H D 02/07/17 17:20 Platelet Estimate Increased (NORMAL) 02/07/17 17:20 Platelet Comment No clumping noted 02/07/17 17:20 Anisocytosis 2+ 02/07/17 17:20 Microcytosis 1+ 02/07/17 17:20 INR 1.03 (0.82-1.09) 02/07/17 17:20 PTT (Actin FS) 32.0 SECONDS (26.9-34.4) 02/07/17 17:20 Anticoagulation Therapy Y 02/07/17 17:20 Puncture Site Md puncture 02/07/17 20:52 ABG pH 7.31 (7.35-7.45) L 02/07/17 20:52 ABG pCO2 at Pt Temp 35.8 mmHg (35-45) 02/07/17 20:52 ABG pO2 at Pt Temp 82.4 mmHg (80-100) D 02/07/17 20:52 ABG HCO3 17.5 meq/L (22-26) L 02/07/17 20:52 ABG O2 Sat (Measured) 93.4 % (90-98.9) 02/07/17 20:52 ABG O2 Content 14.1 % vol (15-22) L 02/07/17 20:52 ABG Base Excess -7.6 meq/l (-2-2) L 02/07/17 20:52 Akash Test Not applicable 02/07/17 20:52 O2 Delivery Device Nasal 02/07/17 20:52 Oxygen Flow Rate 3l 02/07/17 20:52 Vent Mode Y 02/07/17 17:20 Vent Rate Y 02/07/17 17:20 Mechanical Rate Y 02/07/17 17:20 PEEP 0.0 cmH2O 02/07/17 17:20 Pressure Support Vent Y 02/07/17 17:20 Sodium 136 mmol/L (136-145) 02/11/17 06:30 Potassium 4.0 mmol/L (3.5-5.1) 02/11/17 06:30 Chloride 106 mmol/L (98-107) 02/11/17 06:30 Carbon Dioxide 19 mmol/L (21-32) L 02/11/17 06:30 Anion Gap 11 (8-16) 02/11/17 06:30 BUN 12 mg/dL (7-18) D 02/11/17 06:30 Creatinine 0.4 mg/dL (0.55-1.02) L 02/11/17 06:30 Creat Clearance w eGFR > 60 (>60) 02/10/17 06:10 Random Glucose 73 mg/dL (74-106) L 02/11/17 06:30 Serum Osmolality 297 mosm/kg (278-305) 02/08/17 08:00 Lactic Acid 1.0 mmol/L (0.4-2.0) 02/08/17 05:18 Calcium 7.6 mg/dL (8.5-10.1) L 02/11/17 06:30 Phosphorus 1.5 mg/dL (2.5-4.9) L D 02/11/17 06:30 Magnesium 2.3 mg/dL (1.8-2.4) D 02/11/17 06:30 Total Bilirubin 0.3 mg/dL (0.2-1.0) 02/10/17 06:10 Direct Bilirubin 0.1 mg/dL (0.0-0.2) 02/08/17 05:18 AST 25 U/L (15-37) D 02/10/17 06:10 ALT 20 U/L (12-78) 02/10/17 06:10 Alkaline Phosphatase 31 U/L (45-117) L 02/10/17 06:10 Creatine Kinase 41 IU/L (26-192) 02/07/17 17:20 Troponin I < 0.02 ng/ml (0.00-0.05) 02/07/17 17:20 Total Protein 5.0 g/dl (6.4-8.2) L 02/10/17 06:10 Albumin 1.9 g/dl (3.4-5.0) L 02/10/17 06:10 Total Amylase 10 U/L (25-115) L D 02/07/17 21:00 Lipase 54 U/L (73-393) L 02/07/17 21:00 Urine Color Dkyellow 02/07/17 17:32 Urine Appearance Clear 02/07/17 17:32 Urine pH 5.0 (5.0-8.0) 02/07/17 17:32 Ur Specific [place] 1.020 (1.005-1.025) 02/07/17 17:32 Urine Protein 1+ (NEGATIVE) H 02/07/17 17:32 Urine Glucose (UA) Negative (NEGATIVE) 02/07/17 17:32 Urine Ketones Negative (NEGATIVE) 02/07/17 17:32 Urine Blood Negative (NEGATIVE) 02/07/17 17:32 Urine Nitrite Negative (NEGATIVE) 02/07/17 17:32 Urine Bilirubin 2.0 (NEGATIVE) 02/07/17 17:32 Urine Urobilinogen Negative E.U./dl (0.2-1.0) 02/07/17 17:32 Ur Leukocyte Esterase Negative (NEGATIVE) 02/07/17 17:32 Urine RBC 6 /hpf (0-3) 02/07/17 17:32 Urine WBC 1 /hpf (3-5) 02/07/17 17:32 Ur Epithelial Cells Rare /hpf (FEW) 02/07/17 17:32 Urine Bacteria Rare /hpf (NONE SEEN) 02/07/17 17:32 Hyaline Casts 40 /lpf 02/07/17 17:32 Urine Mucus Rare 02/07/17 17:32 Urine Osmolality 531 mosm/kg (300-900) D 02/08/17 08:00 U Random Total Protein 69 mg/dl (5-11.9) H 02/08/17 14:00 Ur Random Sodium 5 MMOL/L 02/08/17 14:00 Urine Creatinine 71.6 mg/dL (20-320) 02/08/17 14:00 Opiates Screen Positive ng/ml (YJBQRI=261) 02/07/17 18:39 Methadone Screen Negative ng/ml (TXCJRI=754) 02/07/17 18:39 Barbiturate Screen Negative ng/ml (VUCBJZ=968) 02/07/17 18:39 Phencyclidine Screen Negative ng/ml (CUTOFF=25) 02/07/17 18:39 Ur Amphetamines Screen Negative ng/ml (QCIUOD=180) 02/07/17 18:39 MDMA (Ecstasy) Screen Negative ng/ml (VKURRO=500) 02/07/17 18:39 Benzodiazepines Screen Negative ng/ml (HNRDUM=627) 02/07/17 18:39 Cocaine Screen Negative ng/ml (BMBFFR=440) 02/07/17 18:39 U Marijuana (THC) Screen Negative ng/ml (CUTOFF=50) 02/07/17 18:39 labs noted,UDS + for opiate Assessment Plan - Diagnosis (1) Opioid dependence, uncomplicated Status: Acute - Plan Plan: Pain management need to manage a slow detox as out-pt.
[2017-02-11] MEDS: SODIUM BICARBONATE 650 MG TABLET PO SCH (12:00)
[2017-02-11] MEDS ORDERED: GABAPENTIN 100 MG CAPSULE (FP) PO SCH (14:00)
--- NOTE | 2017-02-11 15:34 | CON.NEURO ---
Consult Consult Specialty:: Neurology For Dr. Story Referred by:: Dr. Eva Gonzalez Reason for Consultation:: Chronic Low Back Pain on High Dose Opioids which now pose risk for her COPD. Looking for Alternative therapy - History of Present Illness Chief Complaint: Low back pain radiating down legs Since fall several years ago History of Present Illness: Patient had previously been followed in Dr. Lozano's office but now needs new neurologist and being referred to Dr. Story. She had an accident several years ago where she fell and had back surgery with hardware in her spine. She has chonic low back pain radiating down her legs with sensory loss and paresthesias in her legs, and has been on gabapentin and oxycontin at high doses , but because of her respiratory status, the high dose opioids pose a risk to her health and need to be reduced. She went from 80 TID oxycontin to 80 BID but that lead to an increase in her pain. She was on Gabapentin 800 TID as an outpatient and this was reduced to 100 tid as she was overly sluggish on admission. She states that she has never had interventional pain management such as epidural steroid injections or attempts at spinal cord stimulation or any other non-pharmacologic management. This is what she tells me but chart reports that she has a spinal stimulator in place. She also reports being on duloxetine as an outpatient, and upon coaxing reports being on 60 mg. 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 Normal coronaries on cardiac cath and EF 65% with mild AI, trace MR and [place] [facility] [place] Pulmonary: Yes: Asthma, COPD, Pneumonia, Other (lung mass of undetermined etiology) Gastrointestinal: Yes: Constipation, Diverticulitis, Diverticulosis (small bowel diverticular perforation, scleroderma affecting the esophagus, Bonner's esophagus, Schatzki ring,, antral ulcer, gastroparesis related to scleroderma), GERD (with long segment Bonner's esophagus and patent Schatzki ring), Peptic Ulcer Disease (antral ulcer ), Other (Bonner's esophagus, GERD, Schatzki ring, perforation of small bowel diverticulum, antral ulcer, scleroderma causing esophageal dysmotility and gastroparesis, GERD with long segment Bonner's esophagus,Schatzki ring,GAVE syndrome) Renal/: Yes: Renal Failure ...LMP Comment: Unknown Infectious Disease: Yes: MRSA (bursitis) Psych: Yes: Addictions (marijuana,tobacco and prescription narcotics) Musculoskeletal: Yes: Chronic low back pain, Other (has spinal stimulator) Rheumatology: Yes: Vasculitis, Other (Scleroderma, Raynauds and CREST syndrome) Endocrine: Yes: Hypothyroidism, Other (Malnutrition, osteoporosis) Dermatology: Yes: Cellulitis - Past Surgical History Past Surgical History: Yes: Appendectomy, Colonoscopy, Upper Endoscopy Additional Surgical History: 12/31 exploratory laparotomy - nothing resected - Alcohol/Substance Use Hx Alcohol Use: No History of Substance Use: reports: Marijuana, Prescription - Smoking History Smoking history: Current every day smoker Have you smoked in the past 12 months: Yes Aproximately how many cigarettes per day: 10 If you are a former smoker, when did you quit?: 4 years ago - Social History Usual Living Arrangement: With Parent ADL: Independent Occupation: disabled History of Recent Travel: No Home Medications - Allergies Allergies/Adverse Reactions: Allergies Allergy/AdvReac Type Severity Reaction Status Date / Time Penicillins Allergy Severe Hives Verified 02/07/17 17:45 tomato AdvReac Uncoded 02/07/17 17:45 - Home Medications Home Medications: Ambulatory Orders Duloxetine HCl [Cymbalta -] 60 mg PO DAILY #30 capsule. 03/10/15 Albuterol 0.083% Nebulizer Cinthya [Ventolin 0.083% Nebulizer Soln -] 1 amp NEB Q4H PRN #1 amp 04/11/16 Aspirin [ASA -] 81 mg PO DAILY tab.chew 04/11/16 Budesonide/Formeterol Fumarate [SYMBICORT 80/4.5mcg -] 2 puff IH BID #1 inhaler 04/11/16 Ranitidine [Zantac -] 150 mg PO DAILY 05/27/16 Gabapentin [Neurontin -] 800 mg PO TID capsule 05/28/16 Aclidinium [place] [Tudorza -] 1 puff IH DAILY inhaler 07/20/16 Lactobacillus Acidophilus [Bacid -] 1 each PO DAILY #30 capsule 07/20/16 Metoclopramide HCl [Reglan -] 10 mg PO ACHS tablet 07/20/16 Acetaminophen [Tylenol .Regular Strength -] 650 mg PO Q6H PRN #0 tablet Hydroxychloroquine So4 [Plaquenil -] 200 mg PO BID tablet 07/31/16 Pantoprazole Sodium [Protonix -] 40 mg PO BID tablet.ec 07/31/16 Cyclobenzaprine HCl [Flexeril -] 5 mg PO BID PRN #20 tablet 09/16/16 Lidocaine 5% Patch [Lidoderm -] 2 patch TP DAILY #60 patch 09/16/16 Albuterol 2.5/Ipratropium 0.5 [Duoneb -] 1 amp NEB BID amp 12/17/16 Multivitamins [Multivit ([facility] Formulary)] 1 tab PO DAILY tab 12/17/16 Magnesium Oxide [Mag-Ox -] 400 mg PO BID #30 tablet MDD 2 12/18/16 Potassium Chloride [K-Dur -] 20 meq PO DAILY #30 tab 12/18/16 Bisacodyl Suppository [Dulcolax Suppository -] 10 mg RC DAILY PRN #0 supp.rect 01/01/17 Cephalexin Monohydrate [Keflex -] 500 mg PO TID #15 cap 01/01/17 Metronidazole [Flagyl -] 500 mg PO TID #15 tablet 01/01/17 Polyethylene Glycol 3350 [Miralax 119 gm Btl -] 17 gm PO DAILY PRN #0 bottle Polyethylene Glycol 3350 [Miralax 255 gm Btl -] 17 gm PO DAILY bottle 01/01/17 Family Disease History - Family Disease History Family Disease History: Diabetes: Father (HCV), Heart Disease: Father, Mother, Other: Father, Brother (HIV) Physical Exam-Neuro Vital Signs: Vital Signs Temperature 97.6 F 02/11/17 14:43 Pulse Rate 82 02/11/17 14:43 Respiratory Rate 20 02/11/17 14:43 Blood Pressure 108/76 02/11/17 14:43 O2 Sat by Pulse Oximetry (%) 96 02/11/17 09:00 Labs: CBC, BMP 02/10/17 06:10 02/11/17 06:30 INR, PTT INR 1.03 (0.82-1.09) 02/07/17 17:20 NIH Stroke Scale - Total Score NIH Stroke Scale Score: 0 Problem List - Problems (1) Lumbar radicular pain Assessment/Plan: chronic pain with longstanding dependence on high dose opiates and gabapentin for pain control but not tolerating with her pulmonary status. As I'm only covering for Dr. Story, I will not start any therapy, though I'll have her restart her duloxetine and restart the gabapentin at 300 tid rather than 100 tid which I think is too big a drop for her to tolerate. I would consider interventional approaches, to minimize systemic exposure to narcotics while still providing adequate analgesia, and these might include spinal cord stimulation (if not already in place), narcotic intrathecal delivery. Thanks. Dr. Story to assume care tomorrow. Code(s): M54.16 - RADICULOPATHY, LUMBAR REGION
[2017-02-11] MEDS: LIDOCAINE PATCH REMOVAL MC SCH (22:00)
[2017-02-11] MEDS: GABAPENTIN 300 MG CAPSULE (FP) PO SCH (22:23)
[2017-02-12] MEDS: GABAPENTIN 300 MG CAPSULE (FP) PO SCH ×2 (06:15→13:28)
[2017-02-12] MEDS: IBUPROFEN 400 MG TABLET (FP) PO PRN (08:38)
[2017-02-12] MEDS ORDERED: DULoxetine HCL 30 MG CAPSULE.DR (FP) PO SCH (10:00)
[2017-02-12] MEDS ORDERED: PT OWN MED DRAWER 7, Y5N ONE (10:05)
[2017-02-12] MEDS: SODIUM BICARBONATE 650 MG TABLET PO SCH (10:12)
[2017-02-12] MEDS: PANTOPRAZOLE 40 MG TABLET (FP) PO SCH (10:12)
[2017-02-12] MEDS: POTASSIUM CHLORIDE TABS 20 MEQ TABLET.ER (FP) PO SCH (10:13)
[2017-02-12] MEDS: HEPARIN NA (PORCINE) 5,000 UNITS/ML 1ML VIAL SQ SCH (10:14)
--- NOTE | 2017-02-12 11:07 | DS ---
Physical Examination Vital Signs: Vital Signs Temperature 98.3 F 02/12/17 06:27 Pulse Rate 87 02/12/17 06:27 Respiratory Rate 20 02/12/17 06:27 Blood Pressure 133/73 02/12/17 06:27 O2 Sat by Pulse Oximetry (%) 96 02/11/17 21:00 Findings/Remarks: in bed feels better ate OK, needs lytes replacement per renal and PT eval for ambulation but she does not want to wait for any of the above; her girlfriend wants to pick her up and take her home now so she will sign out AMA; aware of risks and consequences. No diarrhea; able to urinate normally.Ate OK. advised f/u with specialists see DC instructions. Constitutional: Yes: No Distress, Calm Eyes: Yes: Conjunctiva Clear HENT: Yes: Atraumatic Neck: Yes: Supple Cardiovascular: Yes: Regular Rate and Rhythm Respiratory: Yes: CTA Bilaterally Gastrointestinal: Yes: Soft. No: Distention, Tenderness Renal/: No: CVA Tenderness - Left, CVA Tenderness - Right Musculoskeletal: No: Joint Stiffness, Joint Swelling Extremities: No: Cold, Cool, Cyanosis Edema: No Integumentary: No: Rash, Venous Stasis Changes Neurological: Yes: WNL, Alert, Oriented ...Motor Strength: WNL Psychiatric: Yes: WNL, Alert, Oriented. No: Agitated, Suicidal Ideation Labs: CBC, BMP 02/10/17 06:10 02/11/17 06:30 Discharge Summary Reason For Visit: ACUTE RENAL FAILURE Current Active Problems Acidosis (Acute) Acute renal failure (Acute) Bandemia (Acute) CREST variant of scleroderma (Acute) Dehydration (Acute) Hyponatremia (Acute) Leukocytosis (Acute) Lumbar radicular pain (Acute) Opioid abuse with intoxication (Acute) Opioid dependence, uncomplicated (Acute) Pseudo-obstruction of intestine (Acute) Procedures: Principal: opiates overdose respiratory failure, ARF and severe acidosis, dehydration. Other Procedures: admitted to ICU seen by pulm ICU, renal, GI and pain specialists. Hospital Course: admitted to ICU; respiratory support; IVF improved with above; d/w pt to discard all opiates and controlled substances from home and to use only meds prescribed by pain dr; also outpt detox/rehab advised - Instructions Diet, Activity, Other Instructions: Pt signed out against medical advice pt instructed to follow up with MD as advised Referrals: Eva Gonzalez [Primary Care Provider] - Sonny Leon MD [Staff Physician] - Vicente Owens MD [Staff Physician] - Srinivasan Tijerina MD [Staff Physician] - Ricky Story MD [Staff Physician] - Cristian Hanley MD [Staff Physician] - Jonn Castro MD [Staff Physician] - Disposition: AGAINST MEDICAL ADVICE - Home Medications Comprehensive Discharge Medication List: Ambulatory Orders Duloxetine HCl [Cymbalta -] 60 mg PO DAILY #30 capsule. 03/10/15 Albuterol 0.083% Nebulizer Cinthya [Ventolin 0.083% Nebulizer Soln -] 1 amp NEB Q4H PRN #1 amp 04/11/16 Aspirin [ASA -] 81 mg PO DAILY tab.chew 04/11/16 Budesonide/Formeterol Fumarate [SYMBICORT 80/4.5mcg -] 2 puff IH BID #1 inhaler 04/11/16 Ranitidine [Zantac -] 150 mg PO DAILY 05/27/16 Gabapentin [Neurontin -] 800 mg PO TID capsule 05/28/16 Aclidinium [place] [Tudorza -] 1 puff IH DAILY inhaler 07/20/16 Lactobacillus Acidophilus [Bacid -] 1 each PO DAILY #30 capsule 07/20/16 Metoclopramide HCl [Reglan -] 10 mg PO ACHS tablet 07/20/16 Acetaminophen [Tylenol .Regular Strength -] 650 mg PO Q6H PRN #0 tablet Hydroxychloroquine So4 [Plaquenil -] 200 mg PO BID tablet 07/31/16 Pantoprazole Sodium [Protonix -] 40 mg PO BID tablet.ec 07/31/16 Cyclobenzaprine HCl [Flexeril -] 5 mg PO BID PRN #20 tablet 09/16/16 Lidocaine 5% Patch [Lidoderm -] 2 patch TP DAILY #60 patch 09/16/16 Albuterol 2.5/Ipratropium 0.5 [Duoneb -] 1 amp NEB BID amp 12/17/16 Multivitamins [Multivit ([facility] Formulary)] 1 tab PO DAILY tab 12/17/16 Magnesium Oxide [Mag-Ox -] 400 mg PO BID #30 tablet MDD 2 12/18/16 Potassium Chloride [K-Dur -] 20 meq PO DAILY #30 tab 12/18/16 Bisacodyl Suppository [Dulcolax Suppository -] 10 mg RC DAILY PRN #0 supp.rect 01/01/17 Cephalexin Monohydrate [Keflex -] 500 mg PO TID #15 cap 01/01/17 Metronidazole [Flagyl -] 500 mg PO TID #15 tablet 01/01/17 Polyethylene Glycol 3350 [Miralax 119 gm Btl -] 17 gm PO DAILY PRN #0 bottle Polyethylene Glycol 3350 [Miralax 255 gm Btl -] 17 gm PO DAILY bottle 01/01/17
--- NOTE | 2017-02-12 11:47 | PN ---
Progress Note (short form) - Note Progress Note: Renal Follow up for PRASHANT/Hyponatremia pt seen and examined at the bedside no further diarrhea no sob, chest pain, abd pain had some nausea this am Vital Signs Temperature 98.3 F 02/12/17 06:27 Pulse Rate 87 02/12/17 06:27 Respiratory Rate 20 02/12/17 06:27 Blood Pressure 133/73 02/12/17 06:27 O2 Sat by Pulse Oximetry (%) 96 02/11/17 21:00 Intake & Output 02/09/17 02/10/17 02/11/17 02/12/17 23:59 23:59 23:59 23:59 Intake Total 2146 3330 1930 Output Total 700 Balance 1446 3330 1930 Weight 91 lb 1.6 oz 99 lb 11.2 oz 113 lb 90 lb 2 oz Gen: NAD CVS: RRR, No M/R Lungs: CTA, no rales or wheeze Abd: soft NT/ND Ext: No edema, clubbing or edema. Multiple amputations. CBC, BMP 02/10/17 06:10 02/11/17 06:30 Current Medications Acetaminophen (Tylenol -) 650 mg PO Q6H PRN PRN Reason: FEVER OR PAIN Last Admin: 02/11/17 12:00 Dose: 650 mg Duloxetine HCl (Cymbalta -) 60 mg PO DAILY [facility] Last Admin: 02/12/17 10:12 Dose: 60 mg Gabapentin (Neurontin -) 300 mg PO TID [facility] Last Admin: 02/12/17 06:15 Dose: 300 mg Heparin Sodium (Porcine) (Heparin -) 5,000 unit SQ BID [facility] Last Admin: 02/12/17 10:14 Dose: 5,000 unit Sodium Chloride (Normal Saline -) 1,000 mls @ 60 mls/hr IV ASDIR [facility] Last Admin: 02/11/17 11:58 Dose: 60 mls/hr Potassium Phosphate 30 mm/ (Dextrose) 260 mls @ 62.5 mls/hr IVPB ONCE ONE Stop: 02/12/17 15:54 Ibuprofen (Motrin -) 400 mg PO Q8H PRN PRN Reason: PAIN Last Admin: 02/12/17 08:38 Dose: 400 mg Lidocaine (Lidoderm Patch -) 2 patch TP DAILY [facility] Last Admin: 02/12/17 10:12 Dose: 2 patch Miscellaneous (Lidoderm Patch Removal) 1 each MC DAILY@2200 [facility] Last Admin: 02/11/17 22:00 Dose: 1 each Ondansetron HCl (Zofran Injection) 4 mg IVPB Q8H PRN PRN Reason: NAUSEA Pantoprazole Sodium (Protonix -) 40 mg PO DAILY [facility] Last Admin: 02/12/17 10:12 Dose: 40 mg Potassium Chloride (K-Dur -) 40 meq PO DAILY [facility] Last Admin: 02/12/17 10:13 Dose: 40 meq Potassium Phos/Sodium Phos (Phos-Nak Packet -) 1 packet PO TID [facility] Sodium Bicarbonate (Sodium Bicarbonate -) 650 mg PO DAILY [facility] Last Admin: 02/12/17 10:12 Dose: 650 mg A/P 52 year old woman with PMhx of CREST syndrome, Reynods s/p digit amputations, Scleroderma w/o Hx of renal crisis, Chronic Back pain who presented with N/V and found to have Hypovolemic Shock with Lactic acidosis and Renal failure. #Acute Kidney Injury secondary to acute hypovolemia Renal function now at baseline d/c IVF today #Hypovolemic Hyponatremia Serum na now normal #Metabolic Acidosis/Lactic Acidosis diarrhea resolved Continue sodium bicarb 650mg Daily #Diarrhea c-diff negative diarrhea resolving #Hypophosphtemia secondary to poor oral intake Give IV K phos today and start oral neutraphos to be continued as outpatient #Nausea/Vomiting/Shock improved #Bacteremia repeat cultures are negative ID follow up Srinivasan Tijerina DO
--- NOTE | 2017-02-12 11:56 | PN ---
Progress Note (short form) - Note Progress Note: Feels OK today. No CP or SOB. Intake & Output 02/09/17 02/10/17 02/11/17 02/12/17 23:59 23:59 23:59 23:59 Intake Total 2146 3330 1930 Output Total 700 Balance 1446 3330 1930 Weight 91 lb 1.6 oz 99 lb 11.2 oz 113 lb 90 lb 2 oz Last Vital Signs Temp Pulse Resp BP Pulse Ox 98.3 F 87 20 133/73 96 02/12/17 06:27 02/12/17 06:27 02/12/17 06:27 02/12/17 06:27 02/11/17 21:00 Active Medications Acetaminophen (Tylenol -) 650 mg PO Q6H PRN PRN Reason: FEVER OR PAIN Last Admin: 02/11/17 12:00 Dose: 650 mg Duloxetine HCl (Cymbalta -) 60 mg PO DAILY [facility] Last Admin: 02/12/17 10:12 Dose: 60 mg Gabapentin (Neurontin -) 300 mg PO TID [facility] Last Admin: 02/12/17 06:15 Dose: 300 mg Heparin Sodium (Porcine) (Heparin -) 5,000 unit SQ BID [facility] Last Admin: 02/12/17 10:14 Dose: 5,000 unit Sodium Chloride (Normal Saline -) 1,000 mls @ 60 mls/hr IV ASDIR [facility] Last Admin: 02/11/17 11:58 Dose: 60 mls/hr Potassium Phosphate 30 mm/ (Dextrose) 510 mls @ 62.5 mls/hr IVPB ONCE ONE Stop: 02/12/17 20:09 Ibuprofen (Motrin -) 400 mg PO Q8H PRN PRN Reason: PAIN Last Admin: 02/12/17 08:38 Dose: 400 mg Lidocaine (Lidoderm Patch -) 2 patch TP DAILY [facility] Last Admin: 02/12/17 10:12 Dose: 2 patch Miscellaneous (Lidoderm Patch Removal) 1 each MC DAILY@2200 [facility] Last Admin: 02/11/17 22:00 Dose: 1 each Ondansetron HCl (Zofran Injection) 4 mg IVPB Q8H PRN PRN Reason: NAUSEA Pantoprazole Sodium (Protonix -) 40 mg PO DAILY [facility] Last Admin: 02/12/17 10:12 Dose: 40 mg Potassium Phos/Sodium Phos (Phos-Nak Packet -) 1 packet PO TID [facility] Sodium Bicarbonate (Sodium Bicarbonate -) 650 mg PO DAILY [facility] Last Admin: 02/12/17 10:12 Dose: 650 mg Constitutional: Yes: NAD, Cachectic Eyes: Yes: PERRL Cardiovascular: Yes: Regular Rate and Rhythm, S1, S2 Respiratory: Yes: Diminished Gastrointestinal: Yes: Normal Bowel Sounds, NT, (+) BS Extremities: Yes: Cool, Cyanosis Edema: No Integumentary: Yes: Pressure Ulcer (10x 10 stage 2 sacral), Venous Stasis Changes Neurological: Yes: Alert Labs: Problem List - Problems (1) Acute renal failure Code(s): N17.9 - ACUTE KIDNEY FAILURE, UNSPECIFIED Qualifiers: Acute renal failure type: unspecified Qualified Code(s): N17.9 - Acute kidney failure, unspecified (2) CREST variant of scleroderma Code(s): M34.1 - CR(E)ST SYNDROME (3) Dehydration Code(s): E86.0 - DEHYDRATION (4) Hyponatremia Code(s): E87.1 - HYPO-OSMOLALITY AND HYPONATREMIA (5) Opioid dependence, uncomplicated Code(s): F11.20 - OPIOID DEPENDENCE, UNCOMPLICATED (6) Abdominal pain Code(s): R10.9 - UNSPECIFIED ABDOMINAL PAIN (7) COPD (chronic obstructive pulmonary disease) Code(s): J44.9 - CHRONIC OBSTRUCTIVE PULMONARY DISEASE, UNSPECIFIED (8) Lactic acidosis Code(s): E87.2 - ACIDOSIS (9) Raynauds disease Code(s): I73.00 - RAYNAUD'S SYNDROME WITHOUT GANGRENE (10) Sepsis Code(s): A41.9 - SEPSIS, UNSPECIFIED ORGANISM (11) Vomiting Code(s): R11.10 - VOMITING, UNSPECIFIED Assessment/Plan PO as tolerated O2 as needed BD TX PRN Monitor off systemic steroids Dr Owens
[2017-02-12] MEDS ORDERED: POTASSIUM PHOSPHATE 30 MM in DEXTROSE 5%-WATER - 500 ML IVPB ONE (12:00)
[2017-02-12 12:44] LABS: BASOPHIL 0.2 % (0-2.0); EOSINOPHIL 1.6 % (0-4.5); MCH 27.7 pg (25.7-33.7); MCHC 32.8 g/dl (32.0-36.0); MEAN CELL VOLUME 84.7 fl (80-96); MEAN PLT VOLUME 8.7 fl (7.5-11.1); NEUTROPHILS 67.8 % (42.8-82.8); PLATELET COUNT 311 K/MM3 (134-434); RDW 22.2 % (11.6-15.6); WHITE BLOOD COUNT 7.6 K/mm3 (4.0-10.0)
[2017-02-12 13:21] LABS: ALBUMIN 2.2 g/dl (3.4-5.0); ANION GAP 6 (8-16); BILIRUBIN,TOTAL 0.2 mg/dL (0.2-1.0); CALCIUM 7.8 mg/dL (8.5-10.1); CO2 26 mmol/L (21-32); CREATININE 0.4 mg/dL (0.55-1.02); GLUCOSE,RANDOM 68 mg/dL (74-106); MAGNESIUM 1.3 mg/dL (1.8-2.4); PHOSPHOROUS 1.7 mg/dL (2.5-4.9); SGOT/AST 21 U/L (15-37); SGPT/ALT 23 U/L (12-78); TOT PROT 5.9 g/dl (6.4-8.2)
[2017-02-12 13:31] LABS: ALK PHOS 37 U/L (45-117); THYROID STIMULATING HORMONE 5.05 uIU/ml (0.358-3.74)
[2017-02-12] MEDS ORDERED: NAPH,MB-DB/K PH,MBDB POWDER PACKET PO SCH (14:00)
[2017-02-12 15:24] VITALS: BP 159/84; PULSE 74; TEMP 97.9
[2017-02-12 17:21] LABS: ANISOCYTOSIS 3+
[2017-02-12 17:22] LABS: MICROCYTOSIS 1+
== END 2017-02-12 14:26 | disposition left against medical advice (07) | DRG 917 ==
LOC: JER 16:45 → JERBED 19:10 → JICU 20:37 → J8W 02-08 21:27
PROVIDERS: ADMIT Internal Medicine; ATTEND Internal Medicine
PROC: 3E0F7GC Introduction of Other Therapeutic Substance into Respiratory Tract, Via Natural or Artificial Opening (ICD-10-PCS; principal; 2017-02-07)
DX: T40.2X1A Poisoning by other opioids, accidental (unintentional), initial encounter (principal); J96.90 Respiratory failure, unspecified, unspecified whether with hypoxia or hypercapnia; E43 Unspecified severe protein-calorie malnutrition; N17.9 Acute kidney failure, unspecified; E87.1 Hypo-osmolality and hyponatremia; F11.20 Opioid dependence, uncomplicated; E87.2 Acidosis; Z68.1 Body mass index [BMI] 19.9 or less, adult; M34.1 CR(E)ST syndrome; E86.0 Dehydration; J44.9 Chronic obstructive pulmonary disease, unspecified; I73.00 Raynaud's syndrome without gangrene; M34.9 Systemic sclerosis, unspecified; K31.84 Gastroparesis; D64.9 Anemia, unspecified; E03.9 Hypothyroidism, unspecified; Z98.1 Arthrodesis status; R40.0 Somnolence; L89.152 Pressure ulcer of sacral region, stage 2; G62.9 Polyneuropathy, unspecified; Y92.009 Unspecified place in unspecified non-institutional (private) residence as the place of occurrence of the external cause; K59.8 Other specified functional intestinal disorders; E83.39 Other disorders of phosphorus metabolism; G89.29 Other chronic pain; M54.5 Low back pain; M54.16 Radiculopathy, lumbar region; R23.0 Cyanosis
CPT/HCPCS: 36415; 36600; 71010-TC; 74000-TC; 74176-TC; 80048; 80053; 80076; 80307; 81003; 81015; 82150; 82550; 82570; 82607; 82803; 83605; 83690; 83735; 83930; 83935; 84100; 84156; 84300; 84443; 84484; 85025; 85027; 85610; 85730; 87040; 87045; 87046; 87086; 87177; 87205; 87209; 87324; 87328; 87329; 87449; 93005; 93010; 97116-GP; 97161-GP; 99285-25; J1644

== ENCOUNTER 2017-02-25 14:42 | Emergency (ER) | payer OTHER ==
--- NOTE | 2017-02-25 14:46 | PDOC ---
Rapid Medical Evaluation Time Seen by Provider: 02/25/17 14:45 Medical Evaluation: Allergies Allergy/AdvReac Type Severity Reaction Status Date / Time Penicillins Allergy Severe Hives Verified 02/25/17 14:46 tomato AdvReac Uncoded 02/25/17 14:46 02/25/17 14:46 52 year old female with a history of asthma/COPD, scleroderma, diverticulitis and bowel perforation, GAVE syndrome, CREST syndrome, Rayaud's disease s/p multiple digit amputations, and prior admission for MRSA cellulitis complaining of "cellulitis in both feet" since Saturday. No fevers/chills. Complains of 9/10 pain, new lower extremity edema. -V/s unremarkable except for SpO2 which is unobtainable. -EKG -Sepsis labs/cultures -CXR -To Main ED for further evaluation
[2017-02-25 14:53] VITALS: TEMP 97.6; BMI 18.3
--- NOTE | 2017-02-25 17:49 | PDOC ---
History of Present Illness - History of Present Illness Initial Comments: 02/25/17 18:17 Patient is a 52 year old female with significant medical hx of COPD, CHF, narcotic abuse, HLD, asthma, scleroderma, gastroparesis, Raynauds, CREST syndrome, hypothyroidism, and chronic aspiration PNA with drug resistance who is presenting to the ED with complaint of redness, swelling and pain to lower extremities bilaterally. The patient's symptoms are localized towards her feet at the dorsal surface. Patient states yesterday she had difficulty walking from the swelling and the pain. She tried elevating her legs which didnt offer much relief. The patient also endorses feeling pins and needles to her feet and states that they are very tender to touch. The patient has a history of recurrent cellulitis of her lower extremities and she states that she wanted be evaluated before her symptoms got worse. Today the patient called her PCP who referred her to the ED. Denies any fevers or chills. Surgical Hx: abdominal exploratory laparotomy (12/23/16), multiple upper extremity digit amputations, appendectomy, colonoscopy, upper endoscopy, LS/ rods and bone fusions,, multiple back sx Allergies: Penicillin PCP: Eva Gonzalez MD <Miracle Watts - Last Filed: 02/25/17 18:17> - General History Source: Patient, Old Records <Elba Park - Last Filed: 02/25/17 19:11> - General Chief Complaint: Redness To Affected Area Stated Complaint: CELLULITIS/ BOTH FEET Time Seen by Provider: 02/25/17 14:45 Past History <Miracle Watts - Last Filed: 02/25/17 18:17> - Past Medical History Anemia: Yes Asthma: Yes Cancer: No 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, 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) CVA: No COPD: Yes CHF: No Dementia: No Diabetes: No GI Disorders: Yes (REFLUX, Bonner's Esophagus) Disorders: No HTN: No Hypercholesterolemia: Yes Liver Disease: No Seizures: No Thyroid Disease: Yes (HYPO.) Other medical history: SCLERODERMA,RAYNAUD'S SYNDROME - Surgical History Abdominal Surgery: Yes (Yes, Exp lapartomy) Appendectomy: Yes Cardiac Surgery: No Cholecystectomy: No Lung Surgery: No Neurologic Surgery: Yes (LS/RODS &BONE FUSIONS) Orthopedic Surgery: Yes (multiple back sx, hand sx,b/o hip) - Immunization History Immunization Up to Date: Yes - Psycho/Social/Smoking Cessation Hx Anxiety: No Suicidal Ideation: No Smoking Status: No Smoking History: Never smoked Have you smoked in the past 12 months: Yes Number of Cigarettes Smoked Daily: 10 If you are a former smoker, when did you quit?: 4 years ago Information on smoking cessation initiated: No 'Breaking Loose' booklet given: 09/12/16 Hx Alcohol Use: No Drug/Substance Use Hx: No Substance Use Type: None Hx Substance Use Treatment: Yes <Elba Park - Last Filed: 02/25/17 19:11> - Past Medical History Allergies/Adverse Reactions: Allergies Allergy/AdvReac Type Severity Reaction Status Date / Time Penicillins Allergy Severe Hives Verified 02/25/17 14:46 tomato AdvReac Uncoded 02/25/17 14:46 Home Medications: Ambulatory Orders Duloxetine HCl [Cymbalta -] 60 mg PO DAILY #30 capsule. 03/10/15 Albuterol 0.083% Nebulizer Cinthya [Ventolin 0.083% Nebulizer Soln -] 1 amp NEB Q4H PRN #1 amp 04/11/16 Aspirin [ASA -] 81 mg PO DAILY tab.chew 04/11/16 Budesonide/Formeterol Fumarate [SYMBICORT 80/4.5mcg -] 2 puff IH BID #1 inhaler 04/11/16 Ranitidine [Zantac -] 150 mg PO DAILY 05/27/16 Gabapentin [Neurontin -] 800 mg PO TID capsule 05/28/16 Aclidinium [place] [Tudorza -] 1 puff IH DAILY inhaler 07/20/16 Lactobacillus Acidophilus [Bacid -] 1 each PO DAILY #30 capsule 07/20/16 Metoclopramide HCl [Reglan -] 10 mg PO ACHS tablet 07/20/16 Acetaminophen [Tylenol .Regular Strength -] 650 mg PO Q6H PRN #0 tablet Hydroxychloroquine So4 [Plaquenil -] 200 mg PO BID tablet 07/31/16 Pantoprazole Sodium [Protonix -] 40 mg PO BID tablet.ec 07/31/16 Cyclobenzaprine HCl [Flexeril -] 5 mg PO BID PRN #20 tablet 09/16/16 Lidocaine 5% Patch [Lidoderm -] 2 patch TP DAILY #60 patch 09/16/16 Albuterol 2.5/Ipratropium 0.5 [Duoneb -] 1 amp NEB BID amp 12/17/16 Multivitamins [Multivit ([facility] Formul[facility])] 1 tab PO DAILY tab 12/17/16 Magnesium Oxide [Mag-Ox -] 400 mg PO BID #30 tablet MDD 2 12/18/16 Potassium Chloride [K-Dur -] 20 meq PO DAILY #30 tab 12/18/16 Bisacodyl Suppository [Dulcolax Suppository -] 10 mg RC DAILY PRN #0 supp.rect 01/01/17 Cephalexin Monohydrate [Keflex -] 500 mg PO TID #15 cap 01/01/17 Metronidazole [Flagyl -] 500 mg PO TID #15 tablet 01/01/17 Polyethylene Glycol 3350 [Miralax 119 gm Btl -] 17 gm PO DAILY PRN #0 bottle Polyethylene Glycol 3350 [Miralax 255 gm Btl -] 17 gm PO DAILY bottle 01/01/17 Clindamycin [Cleocin -] 300 mg PO TID #21 capsule 02/25/17 Review of Systems - Review of Systems Comments:: 02/25/17 18:18 GENERAL/CONSTITUTIONAL: No fever or chills. No weakness. HEAD, EYES, EARS, NOSE AND THROAT: No change in vision. No ear pain or discharge. No sore throat. CARDIOVASCULAR: No chest pain or shortness of breath. RESPIRATORY: No cough, wheezing, or hemoptysis. GASTROINTESTINAL: No nausea, vomiting, diarrhea or constipation. GENITOURINARY: No dysuria, frequency, or change in urination. MUSCULOSKELETAL: Lower extremity pain, redness, and swelling. No neck or back pain. ENDOCRINE: No increased thirst. No abnormal weight change. SKIN: No rash NEUROLOGIC: No headache, vertigo, loss of consciousness, or change in strength/ sensation. <Miracle Watts - Last Filed: 02/25/17 18:17> *Physical Exam - Vital Signs Last Vital Signs Temp Pulse Resp BP Pulse Ox 97.6 F 63 18 97/55 02/25/17 14:47 02/25/17 14:47 02/25/17 14:47 02/25/17 14:47 - Physical Exam Comments: 02/25/17 18:20 GENERAL: Awake, alert, and fully oriented, in no acute distress. Markedly cachectic. HEAD: No signs of trauma EYES: PERRLA, EOMI, sclera anicteric, conjunctiva clear ENT: Auricles normal inspection, hearing grossly normal, nares patent, oropharynx clear without exudates. Moist mucosa NECK: Normal ROM, supple, no lymphadenopathy, JVD, or masses LUNGS: Breath sounds equal, clear to auscultation bilaterally. No wheezes, and no crackles HEART: Regular rate and rhythm, normal S1 and S2, no murmurs, rubs or gallops ABDOMEN: Soft, nontender, normoactive bowel sounds. No guarding, no rebound. No masses EXTREMITIES: Mild localized erythema to the dorsum of the foot in mid metatarsal region but with some tenderness to palpation. No significant swelling. Normal range of motion NEUROLOGICAL: Cranial nerves II through XII grossly intact. Normal speech, normal gait SKIN: 4 x 2.3 cm scabbed over lesion to the sacrum. Warm, Dry, normal turgor, no rashes oted. HEMATOLOGIC/LYMPHATIC: No anemia, easy bleeding, or history of blood clots. ALLERGIC/IMMUNOLOGIC: No hives or skin allergy. <Miracle Watts - Last Filed: 02/25/17 18:17> - Vital Signs Last Vital Signs Temp Pulse Resp BP Pulse Ox 97.6 F 63 18 97/55 02/25/17 14:47 02/25/17 14:47 02/25/17 14:47 02/25/17 14:47 <Elba Park - Last Filed: 02/25/17 19:11> ED Treatment Course - LABORATORY CBC & Chemistry Diagram: 02/25/17 18:10 02/25/17 18:10 - RADIOLOGY Radiology Studies Ordered: Category Date Time Status FOOT-RIGHT [RAD] Stat Radiology 02/25/17 17:44 Ordered <Elba Park - Last Filed: 02/25/17 19:11> Medical Decision Making - Medical Decision Making 02/25/17 17:46 52 y/o female with h/o scleroderma, CREST syndrome, asthma, opiate dependance, recent SBO and sepsis presents to the ED with c/o pain, swelling and redness to her foot foot x 3 days. DDx includes but is not limited to: early cellulitis, osteomyelitis, bony injury. Plan: 1. Labs 2. Plain films of right foot 3. Observe and re-evaluate <Elba Park - Last Filed: 02/25/17 19:11> *DC/Admit/Observation/Transfer - Attestations Scribe Attestion: 02/25/17 18:24 Documentation prepared by Miracle Watts, acting as medical record assistant for Elba Park MD. <Miracle Watts - Last Filed: 02/25/17 18:17> - Attestations Physician Attestion: 02/25/17 17:49 I, Dr. Elba Park, attest that the scribes documentation that appears above has been prepared under my direction and personally reviewed by me in its entirety. I confirmed that the note above accurately reflects all work, treatment, procedures, and medical decision-making performed by me. <Elba Park - Last Filed: 02/25/17 19:11> Diagnosis at time of Disposition: Cellulitis of right foot, Scleroderma - Prescriptions Prescriptions: Clindamycin [Cleocin -] 300 mg PO TID #21 capsule - Referrals Referrals: Eva Gonzalez [Primary Care Provider] - - Patient Instructions Printed Discharge Instructions: DI for Cellulitis -- Adult Additional Instructions: You are being treated for cellulitis with clindamycin 300mg--take one tablet 3 times per day. Please follow-up with your PCP within 2 days and return to the ED if your symptoms persist, worsen or new symptoms arise.
[2017-02-25 18:22] LABS: BASO % 0.9 % (0-2.0); EOS % 1.6 % (0-4.5); HEMATOCRIT 26.8 % (32.4-45.2); HEMOGLOBIN 8.6 GM/dL (10.7-15.3); LYMPH % 23.9 % (8-40); MCH 28.1 pg (25.7-33.7); MCHC 32.1 g/dl (32.0-36.0); MEAN CELL VOLUME 87.6 fl (80-96); MONO % 15.2 % (3.8-10.2); NEUT % 58.4 % (42.8-82.8); PLATELET COUNT 340 K/MM3 (134-434); RBC 3.06 M/mm3 (3.60-5.2); RDW 20.3 % (11.6-15.6); WHITE BLOOD COUNT 6.1 K/mm3 (4.0-10.0)
[2017-02-25 18:34] LABS: INR 1.32 (0.82-1.09); PROTHROMBIN TIME (PATIENT) 14.6 SEC (9.98-11.88)
[2017-02-25 18:37] LABS: ACTIVATED PTT 34.5 SECONDS (26.9-34.4)
[2017-02-25] MEDS ORDERED: CLINDAMYCIN HCL 150 MG CAPSULE (FP) PO ONE (18:47)
[2017-02-25 18:57] LABS: ALBUMIN 2.3 g/dl (3.4-5.0); ALK PHOS 43 U/L (45-117); ANION GAP 12 (8-16); BILIRUBIN,TOTAL 0.1 mg/dL (0.2-1.0); BLOOD UREA NITROGEN 12 mg/dL (7-18); CALCIUM 8.2 mg/dL (8.5-10.1); CHLORIDE 99 mmol/L (98-107); CO2 26 mmol/L (21-32); CREATININE 0.5 mg/dL (0.55-1.02); GLUCOSE,RANDOM 71 mg/dL (74-106); POTASSIUM 3.4 mmol/L (3.5-5.1); SGOT/AST 13 U/L (15-37); SGPT/ALT 20 U/L (12-78); SODIUM 137 mmol/L (136-145); TOT PROT 6.1 g/dl (6.4-8.2)
[2017-02-25] MEDS ORDERED: CLINDAMYCIN HCL 150 MG CAPSULE (FP) ONE (19:33)
[2017-02-25 20:07] VITALS: BP 106/77; PULSE 67
--- NOTE | 2017-02-26 11:50 | EKG ---
Test Reason : Blood Pressure : / mmHG Vent. Rate : 078 BPM Atrial Rate : 078 BPM P-R Int : 160 ms QRS Dur : 076 ms QT Int : 390 ms P-R-T Axes : 070 056 058 degrees QTc Int : 444 ms NORMAL SINUS RHYTHM NORMAL ECG WHEN COMPARED WITH ECG OF 07-FEB-2017 17:39, NO SIGNIFICANT CHANGE WAS FOUND Confirmed by EVERETT QUEVEDO MD ([id number]) on 02/26/2017 11:50:00 AM Referred By: JEFFY Confirmed By:EVERETT QUEVEDO MD
== END 2017-02-25 19:32 | disposition home or self-care (01) ==
LOC: JER 14:42
DX: L03.115 Cellulitis of right lower limb (principal); M34.9 Systemic sclerosis, unspecified; M34.1 CR(E)ST syndrome; F11.20 Opioid dependence, uncomplicated
CPT/HCPCS: 36415; 71010-TC; 73630-TC-RT; 80053; 83605; 85025; 85610; 85730; 87040; 93005; 93010; 99282-25

== ENCOUNTER 2017-03-16 10:08 | Inpatient (IN) | payer OTHER ==
[2017-03-16 10:31] VITALS: BMI 15.4
--- NOTE | 2017-03-16 10:51 | PDOC ---
History of Present Illness - General History Source: Patient, Old Records Exam Limitations: No Limitations <Elba Park - Last Filed: 03/16/17 12:32> - History of Present Illness Initial Comments: 03/16/17 11:07 The patient is a 52 year old female, with a significant past medical history of COPD, CHF, narcotic abuse, HLD, asthma, scleroderma, gastroparesis, Raynauds, CREST syndrome, hypothyroidism, and chronic aspiration PNA with drug resistance , who presents to the emergency department with a few episodes of diarrhea and brown emesis since last night. She reports her diarrhea is watery and brown. She denies blood per rectum. She reports a couple of episodes of brown, liquid emesis last night and today. She denies abdominal pain. She states she is cold right now. She denies chest pain, shortness of breath, headache and dizziness. She denies fever, and constipation. She denies dysuria, frequency, urgency and hematuria. Allergies: penicillin Past surgical history: abdominal exploratory laparotomy (12/23/16), multiple upper extremity digit amputations, appendectomy, colonoscopy, upper endoscopy, LS/Rods and bone fusions, multiple back Sx PCP - Dr. 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) CVA: No COPD: Yes CHF: No Dementia: No Diabetes: No GI Disorders: Yes (REFLUX, Bonner's Esophagus) Disorders: No HTN: No Hypercholesterolemia: Yes Liver Disease: No Seizures: No Thyroid Disease: Yes (HYPO.) - Surgical History Abdominal Surgery: Yes (Yes, Exp lapartomy) Appendectomy: Yes Cardiac Surgery: No Cholecystectomy: No Lung Surgery: No Neurologic Surgery: Yes (LS/RODS &BONE FUSIONS) Orthopedic Surgery: Yes (multiple back sx, hand sx,b/o hip) - Immunization History Immunization Up to Date: Yes - Psycho/Social/Smoking Cessation Hx Anxiety: No Suicidal Ideation: No Smoking Status: No Smoking History: Current every day smoker Have you smoked in the past 12 months: Yes Number of Cigarettes Smoked Daily: 10 If you are a former smoker, when did you quit?: 4 years ago Information on smoking cessation initiated: No 'Breaking Loose' booklet given: 09/12/16 Hx Alcohol Use: No Drug/Substance Use Hx: No Substance Use Type: None Hx Substance Use Treatment: Yes <VivianElba - Last Filed: 03/16/17 12:32> <JhSuzanne - Last Filed: 03/16/17 16:10> - Past Medical History Allergies/Adverse Reactions: Allergies Allergy/AdvReac Type Severity Reaction Status Date / Time Penicillins Allergy Severe Hives Verified 03/16/17 10:22 tomato AdvReac Uncoded 03/16/17 10:22 Home Medications: Ambulatory Orders Duloxetine HCl [Cymbalta -] 60 mg PO DAILY #30 capsule. 03/10/15 Albuterol 0.083% Nebulizer Cinthya [Ventolin 0.083% Nebulizer Soln -] 1 amp NEB Q4H PRN #1 amp 04/11/16 Aspirin [ASA -] 81 mg PO DAILY tab.chew 04/11/16 Budesonide/Formeterol Fumarate [SYMBICORT 80/4.5mcg -] 2 puff IH BID #1 inhaler 04/11/16 Ranitidine [Zantac -] 150 mg PO DAILY 05/27/16 Gabapentin [Neurontin -] 800 mg PO TID capsule 05/28/16 Aclidinium [place] [Tudorza -] 1 puff IH DAILY inhaler 07/20/16 Lactobacillus Acidophilus [Bacid -] 1 each PO DAILY #30 capsule 07/20/16 Metoclopramide HCl [Reglan -] 10 mg PO ACHS tablet 07/20/16 Acetaminophen [Tylenol .Regular Strength -] 650 mg PO Q6H PRN #0 tablet Hydroxychloroquine So4 [Plaquenil -] 200 mg PO BID tablet 07/31/16 Pantoprazole Sodium [Protonix -] 40 mg PO BID tablet.ec 07/31/16 Cyclobenzaprine HCl [Flexeril -] 5 mg PO BID PRN #20 tablet 09/16/16 Lidocaine 5% Patch [Lidoderm -] 2 patch TP DAILY #60 patch 09/16/16 Albuterol 2.5/Ipratropium 0.5 [Duoneb -] 1 amp NEB BID amp 12/17/16 Multivitamins [Multivit ([facility] Formul[facility])] 1 tab PO DAILY tab 12/17/16 Magnesium Oxide [Mag-Ox -] 400 mg PO BID #30 tablet MDD 2 12/18/16 Potassium Chloride [K-Dur -] 20 meq PO DAILY #30 tab 12/18/16 Bisacodyl Suppository [Dulcolax Suppository -] 10 mg RC DAILY PRN #0 supp.rect 01/01/17 Metronidazole [Flagyl -] 500 mg PO TID #15 tablet 01/01/17 Review of Systems - Review of Systems Able to Perform ROS?: Yes Comments:: 03/16/17 11:07 GENERAL/CONSTITUTIONAL: (+) chills. No fever. No weakness. HEAD, EYES, EARS, NOSE AND THROAT: No change in vision. No ear pain or discharge. No sore throat. CARDIOVASCULAR: No chest pain or shortness of breath. RESPIRATORY: No cough, wheezing, or hemoptysis. GASTROINTESTINAL: (+) nausea and vomiting brown, watery diarrhea, No constipation. GENITOURINARY: No dysuria, frequency, or change in urination. MUSCULOSKELETAL: No joint or muscle swelling or pain. No neck or back pain. SKIN: No rash NEUROLOGIC: No headache, vertigo, loss of consciousness, or change in strength/ sensation. ENDOCRINE: No increased thirst. No abnormal weight change. HEMATOLOGIC/LYMPHATIC: No anemia, easy bleeding, or history of blood clots. ALLERGIC/IMMUNOLOGIC: No hives or skin allergy. <Suzanne Peñaloza - Last Filed: 03/16/17 16:10> *Physical Exam - Vital Signs Last Vital Signs Temp Pulse Resp BP Pulse Ox 98.4 F 84 16 96/65 90 L 03/16/17 10:10 03/16/17 10:10 03/16/17 10:10 03/16/17 10:10 03/16/17 10:39 <Elba Park - Last Filed: 03/16/17 12:32> - Vital Signs Last Vital Signs Temp Pulse Resp BP Pulse Ox 98.4 F 84 16 96/65 90 L 03/16/17 10:10 03/16/17 10:10 03/16/17 10:10 03/16/17 10:10 03/16/17 10:39 - Physical Exam Comments: 03/16/17 11:08 GENERAL: Awake, alert, and fully oriented, in no acute distress HEAD: No signs of trauma EYES: PERRLA, EOMI, sclera anicteric, conjunctiva clear ENT: Auricles normal inspection, hearing grossly normal, nares patent, oropharynx clear without exudates. Moist mucosa NECK: Normal ROM, supple, no lymphadenopathy, JVD, or masses LUNGS: (+) crackles at R base. No wheezes, HEART: Regular rate and rhythm, normal S1 and S2, no murmurs, rubs or gallops ABDOMEN: Soft, nontender, normoactive bowel sounds. No guarding, no rebound. No masses EXTREMITIES: Normal range of motion, no edema. No clubbing or cyanosis. No cords, erythema, or tenderness NEUROLOGICAL: Cranial nerves II through XII grossly intact. Normal speech, normal gait SKIN: Warm, Dry, normal turgor, no rashes or lesions noted. <Suzanne Peñaloza - Last Filed: 03/16/17 16:10> Heart Score/ECG Review - ECG Intrepretation Comment:: 03/16/17 16:10 ECG was read by Dr. Park at 11:09 Impression: Normal sinus rhythm. Prolonged QT Vent Rate: 77 bpm DC Interval: 140 ms QTc: 513 ms <Suzanne Peñaloza - Last Filed: 03/16/17 16:10> ED Treatment Course - LABORATORY CBC & Chemistry Diagram: 03/16/17 11:05 03/16/17 11:05 <Elba Park - Last Filed: 03/16/17 12:32> - LABORATORY CBC & Chemistry Diagram: 03/16/17 11:05 03/16/17 11:05 - RADIOLOGY Radiograph Interpretation: 03/16/17 15:29 RAD/KUB (KID UR & BLAD) was read by Dr. Brown at 11:37 Impression: reveals scoliosis, degenerative changes with spinal fusion devices and disc space replacements, coarse lung findings, retained stool in the right colon, and distended bowel loops in the left abdomen and central abdomen. The air distended loops of bowel appear to be small bowel and this could represent a developing small bowel obstruction. The patient had small bowel problems in january 2017. CXR was read by Dr. Brown at 11:36 Impression: Since prior study on 02/25/17, a right apical nodular density is now suggested and there i some linear scarring or atelectasis at the left base. There is no sign of an acute process. <Suzanne Peñaloza - Last Filed: 03/16/17 16:10> Medical Decision Making - Medical Decision Making 03/16/17 10:59 52-year-old female with history of Raynaud's disease, crest, COPD, opiate abuse , hyperlipidemia, hypertension who presents the emergency Department with complaints of vomiting and diarrhea times one day with no abdominal pain. Differential diagnosis includes but is not limited to: Gastroenteritis, colitis , dehydration, anemia, partial small bowel obstruction, GI bleed, electrolyte abnormality, toxic/metabolic derangement. Plan: 1. Labs 2. IV fluids for hydration 3. EKG 4. KUB 5. Observe and reevaluate 03/16/17 12:26 Addendum: labs were reviewed and are noted in the EMR. The sodium, is 127, potassium is 2.4 and the BUN and creatinine are 43/1.4 which are elevated from the baseline. Will replete electrolytes and give a second liter of NS for hydration. Abdominal imaging shows distended loops of small bowel with ? partial obstruction. Will get Ct scan of the abdomen and pelvis. <Elba Park - Last Filed: 03/16/17 12:32> - Medical Decision Making 03/16/17 15:15 The patient's case was discussed with Dr. Gonzalez at this time who agrees to admit this patient to the hospital. The patient's CT imaging was discussed with radiologist via phone call at 15: 19. <Suzanne Peñaloza - Last Filed: 03/16/17 16:10> *DC/Admit/Observation/Transfer - Attestations Physician Attestion: 03/16/17 11:02 I, Dr. Elba Park, attest that the scribes documentation that appears above has been prepared under my direction and personally reviewed by me in its entirety. I confirmed that the note above accurately reflects all work, treatment, procedures, and medical decision-making performed by me. <Elba Park - Last Filed: 03/16/17 12:32> - Attestations Scribe Attestion: 03/16/17 11:09 Documentation prepared by Suzanne Peñaloza, acting as medical office scheduler for Elba Park MD, <Suzanne Peñaloza - Last Filed: 03/16/17 16:10> Diagnosis at time of Disposition: Vomiting, Diarrhea, Hypokalemia - Referrals
[2017-03-16] MEDS ORDERED: SODIUM CHLORIDE 1,000 ML IV STA ×2 (10:52→12:25)
[2017-03-16 11:13] LABS: BASOPHIL 0.2 % (0-2.0); EOSINOPHIL 3.4 % (0-4.5); MCH 27.8 pg (25.7-33.7); MEAN CELL VOLUME 84.4 fl (80-96); MEAN PLT VOLUME 8.3 fl (7.5-11.1); NEUTROPHILS 80.1 % (42.8-82.8); PLATELET COUNT 371 K/MM3 (134-434); RDW 18.2 % (11.6-15.6); WHITE BLOOD COUNT 10.6 K/mm3 (4.0-10.0)
[2017-03-16 11:34] LABS: ALBUMIN 2.9 g/dl (3.4-5.0); ALK PHOS 40 U/L (45-117); ANION GAP 11 (8-16); BILIRUBIN,TOTAL 0.2 mg/dL (0.2-1.0); CALCIUM 8.9 mg/dL (8.5-10.1); CO2 44 mmol/L (21-32); CREATININE 1.4 mg/dL (0.55-1.02); GLUCOSE,RANDOM 87 mg/dL (74-106); MAGNESIUM 2.2 mg/dL (1.8-2.4); PHOSPHOROUS 3.8 mg/dL (2.5-4.9); SGOT/AST 35 U/L (15-37); SGPT/ALT 26 U/L (12-78)
[2017-03-16] MEDS ORDERED: KCL 10 MEQ IVPB 300 ML IVPB ONE (12:29)
[2017-03-16] MEDS: KCL 10 MEQ IVPB 100 ML IVPB SCH ×3 (12:34→15:40)
[2017-03-16 12:45] LABS: URINE APPEARANCE CLEAR; URINE BILIRUBIN NEGATIVE (NEGATIVE); URINE COLOR LTYELLOW; URINE GLUCOSE (UA) NEGATIVE (NEGATIVE); URINE KETONE NEGATIVE (NEGATIVE); URINE LEUK ESTERASE NEGATIVE (NEGATIVE); URINE NITRITE NEGATIVE (NEGATIVE); URINE PROTEIN NEGATIVE (NEGATIVE); URINE UROBILINOGEN NEGATIVE E.U./dl (0.2-1.0)
[2017-03-16 12:59] LABS: URINE BLOOD 1+ (NEGATIVE)
[2017-03-16 13:00] LABS: URINE HYALINE CAST 34 /lpf; URINE MUCUS RARE; URINE RBC 7 /hpf (0-3); URINE WBC <1 /hpf (3-5)
--- NOTE | 2017-03-16 14:55 | EKG ---
Test Reason : Blood Pressure : / mmHG Vent. Rate : 077 BPM Atrial Rate : 077 BPM P-R Int : 140 ms QRS Dur : 074 ms QT Int : 454 ms P-R-T Axes : 054 064 065 degrees QTc Int : 513 ms NORMAL SINUS RHYTHM PROLONGED QT ABNORMAL ECG WHEN COMPARED WITH ECG OF 25-FEB-2017 15:02, NONSPECIFIC T WAVE ABNORMALITY NOW EVIDENT IN ANTERIOR LEADS QT HAS LENGTHENED Confirmed by BRENNA CAVAZOS, BAILEY ([id number]) on 03/16/2017 2:55:17 PM Referred By: Confirmed By:BAILEY CEJA MD
[2017-03-16 15:18] LABS: URINE MARIJUANA THC NEGATIVE ng/ml (CUTOFF=50)
--- NOTE | 2017-03-16 16:04 | HP ---
Admitting History and Physical - Primary Care Physician PCP: Venkat Gonzalez - Admission Chief Complaint: Vomiting. Diarrrhea. 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 Normal coronaries on cardiac cath and EF 65% with mild AI, trace MR and TR on echo @ [facility] [place] 03/31) Pulmonary: Yes: Asthma, COPD, Pneumonia, Other (lung mass of undetermined etiology) Gastrointestinal: Yes: Constipation, Diverticulitis, Diverticulosis (small bowel diverticular perforation, scleroderma affecting the esophagus, Bonner's esophagus, Schatzki ring,, antral ulcer, gastroparesis related to scleroderma), GERD (with long segment Bonner's esophagus and patent Schatzki ring), Peptic Ulcer Disease (antral ulcer ), Other (Bonner's esophagus, GERD, Schatzki ring, perforation of small bowel diverticulum, antral ulcer, scleroderma causing esophageal dysmotility and gastroparesis, GERD with long segment Bonner's esophagus,Schatzki ring,GAVE syndrome) Renal/: Yes: Renal Failure Heme/Onc: Yes: Anemia Infectious Disease: Yes: MRSA (bursitis) Psych: Yes: Addictions (marijuana,tobacco and prescription narcotics) Musculoskeletal: Yes: Chronic low back pain, Other (has spinal stimulator) Rheumatology: Yes: Vasculitis, Other (Scleroderma, Raynauds and CREST syndrome) Endocrine: Yes: Hypothyroidism, Other (Malnutrition, osteoporosis) Dermatology: Yes: Cellulitis - Past Surgical History Past Surgical History: Yes: Appendectomy, Colonoscopy, Upper Endoscopy - Smoking History Smoking history: Current every day smoker Have you smoked in the past 12 months: Yes Aproximately how many cigarettes per day: 10 If you are a former smoker, when did you quit?: 4 years ago - Alcohol/Substance Use Hx Alcohol Use: No History of Substance Use: reports: Marijuana, Prescription - Social History ADL: Independent Occupation: disabled History of Recent Travel: No Home Medications - Allergies Allergies/Adverse Reactions: Allergies Allergy/AdvReac Type Severity Reaction Status Date / Time Penicillins Allergy Severe Hives Verified 03/16/17 10:22 tomato AdvReac Uncoded 03/16/17 10:22 - Home Medications Home Medications: Ambulatory Orders Duloxetine HCl [Cymbalta -] 60 mg PO DAILY #30 capsule. 03/10/15 Albuterol 0.083% Nebulizer Cinthya [Ventolin 0.083% Nebulizer Soln -] 1 amp NEB Q4H PRN #1 amp 04/11/16 Aspirin [ASA -] 81 mg PO DAILY tab.chew 04/11/16 Budesonide/Formeterol Fumarate [SYMBICORT 80/4.5mcg -] 2 puff IH BID #1 inhaler 04/11/16 Ranitidine [Zantac -] 150 mg PO DAILY 05/27/16 Gabapentin [Neurontin -] 800 mg PO TID capsule 05/28/16 Aclidinium [place] [Tudorza -] 1 puff IH DAILY inhaler 07/20/16 Lactobacillus Acidophilus [Bacid -] 1 each PO DAILY #30 capsule 07/20/16 Metoclopramide HCl [Reglan -] 10 mg PO ACHS tablet 07/20/16 Acetaminophen [Tylenol .Regular Strength -] 650 mg PO Q6H PRN #0 tablet Hydroxychloroquine So4 [Plaquenil -] 200 mg PO BID tablet 07/31/16 Pantoprazole Sodium [Protonix -] 40 mg PO BID tablet.ec 07/31/16 Cyclobenzaprine HCl [Flexeril -] 5 mg PO BID PRN #20 tablet 09/16/16 Lidocaine 5% Patch [Lidoderm -] 2 patch TP DAILY #60 patch 09/16/16 Albuterol 2.5/Ipratropium 0.5 [Duoneb -] 1 amp NEB BID amp 12/17/16 Multivitamins [Multivit ([facility] Formulary)] 1 tab PO DAILY tab 12/17/16 Magnesium Oxide [Mag-Ox -] 400 mg PO BID #30 tablet MDD 2 12/18/16 Potassium Chloride [K-Dur -] 20 meq PO DAILY #30 tab 12/18/16 Bisacodyl Suppository [Dulcolax Suppository -] 10 mg RC DAILY PRN #0 supp.rect 01/01/17 Metronidazole [Flagyl -] 500 mg PO TID #15 tablet 01/01/17 Family Disease History - Family Disease History Family Disease History: Diabetes: Father (HCV), Heart Disease: Father, Mother, Other: Father, Brother (HIV) Review of Systems Findings/Remarks: Pt deny using any narcotic medication. - Review of Systems Constitutional: reports: Other (feeling cold). denies: Chills, Fever Eyes: denies: Blurred Vision, Double Vision HENT: denies: Difficult Swallowing, Ear Discharge, Ear Pain, Throat Pain Neck: denies: Pain on Movement, Stiffness Cardiovascular: denies: Chest Pain, Edema, Palpitations, Shortness of Breath Respiratory: denies: Cough, Hemoptysis, SOB Gastrointestinal: reports: Diarrhea, Vomiting. denies: Abdominal Pain, Rectal Bleeding Genitourinary: denies: Burning, Discharge, Dysuria Musculoskeletal: denies: Back Pain, Extremity Pain Integumentary: denies: Blister, Eczema, Rash Neurological: denies: Change in LOC, Change in Speech, Confusion Endocrine: denies: Excessive Sweating, Intolerance to Cold Hematology/Lymphatic: denies: Easily Bruised, Excessive Bleeding Psychiatric: denies: Altered Sleep Pattern, Anxiety Physical Examination Vital Signs: Vital Signs Temperature 98.4 F 03/16/17 10:10 Pulse Rate 84 03/16/17 10:10 Respiratory Rate 16 03/16/17 10:10 Blood Pressure 96/65 03/16/17 10:10 O2 Sat by Pulse Oximetry (%) 90 L 03/16/17 10:39 Constitutional: Yes: No Distress, Calm, Other (sleepy) Eyes: Yes: Conjunctiva Clear, EOM Intact HENT: No: Pharyngeal Erythema, Rhinnorhea Neck: Yes: Trachea Midline. No: Lymphadenopathy Cardiovascular: Yes: Regular Rate and Rhythm, S1, S2 Respiratory: Yes: Regular, CTA Bilaterally, Other (decreased BS) Gastrointestinal: Yes: Normal Bowel Sounds, Soft. No: Tenderness Edema: No Neurological: Yes: Confusion, Other (motor and sensory evaluation in UE/ LE/ face si symmetric) Psychiatric: Yes: Alert Labs: reviewed K 2.6 Na 127 Imaging - Results Chest X-ray: Report Reviewed Cat Scan: Report Reviewed Problem List - Problems (1) Diarrhea Code(s): R19.7 - DIARRHEA, UNSPECIFIED (2) Hypokalemia Code(s): E87.6 - HYPOKALEMIA (3) Vomiting Code(s): R11.10 - VOMITING, UNSPECIFIED (4) Hyponatremia Code(s): E87.1 - HYPO-OSMOLALITY AND HYPONATREMIA (5) Opiate dependence Assessment/Plan: [facility] source of opiates Possible opiates OD Code(s): F11.20 - OPIOID DEPENDENCE, UNCOMPLICATED (6) Acute renal failure Code(s): N17.9 - ACUTE KIDNEY FAILURE, UNSPECIFIED Qualifiers: Acute renal failure type: unspecified Qualified Code(s): N17.9 - Acute kidney failure, unspecified (7) COPD (chronic obstructive pulmonary disease) Code(s): J44.9 - CHRONIC OBSTRUCTIVE PULMONARY DISEASE, UNSPECIFIED (8) CREST (calcinosis, Raynaud's phenomenon, esophageal dysfunction, sclerodactyly, telangiectasia) Code(s): M34.1 - CR(E)ST SYNDROME (9) Chronic back pain Code(s): M54.9 - DORSALGIA, UNSPECIFIED G89.29 - OTHER CHRONIC PAIN Assessment/Plan Admit to Telemetry Renal consult Cardio consult Gi consult IVF DVT proph GI proph AM labs
[2017-03-16] MEDS: SODIUM CHLORIDE 1,000 ML with POTASSIUM CHLORIDE 20 MEQ IVPB SCH (18:17)
[2017-03-16] MEDS: PANTOPRAZOLE SODIUM 100 ML IVPB SCH (18:17)
--- NOTE | 2017-03-16 19:30 | CON.CARD ---
Consult Consult Specialty:: Cardiology - History of Present Illness History of Present Illness: The patient is a 52 year old female, with a significant past medical history of COPD, CHF, narcotic abuse, HLD, asthma, scleroderma, gastroparesis, Raynauds, CREST syndrome, hypothyroidism, and chronic aspiration PNA with drug resistance , who presents to the emergency department with a few episodes of diarrhea and brown emesis since last night. She reports her diarrhea is watery and brown. She denies blood per rectum. She reports a couple of episodes of brown, liquid emesis last night and today. She denies abdominal pain. She states she is cold right now. She denies chest pain, shortness of breath, headache and dizziness. She denies fever, and constipation. She denies dysuria, frequency, urgency and hematuria. Allergies: penicillin Past surgical history: abdominal exploratory laparotomy (12/23/16), multiple upper extremity digit amputations, appendectomy, colonoscopy, upper endoscopy, LS/Rods and bone fusions, multiple back Sx PCP - Dr. 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 Normal coronaries on cardiac cath and EF 65% with mild AI, trace [place] [facility] [place] Pulmonary: Yes: Asthma, COPD, Pneumonia, Other (lung mass of undetermined etiology) Gastrointestinal: Yes: Constipation, Diverticulitis, Diverticulosis (small bowel diverticular perforation, scleroderma affecting the esophagus, Bonner's esophagus, Schatzki ring,, antral ulcer, gastroparesis related to scleroderma), GERD (with long segment Bonner's esophagus and patent Schatzki ring), Peptic Ulcer Disease (antral ulcer ), Other (Bonner's esophagus, GERD, Schatzki ring, perforation of small bowel diverticulum, antral ulcer, scleroderma causing esophageal dysmotility and gastroparesis, GERD with long segment Bonner's esophagus,Schatzki ring,GAVE syndrome) Renal/: Yes: Renal Failure Infectious Disease: Yes: MRSA (bursitis) Psych: Yes: Addictions (marijuana,tobacco and prescription narcotics) Musculoskeletal: Yes: Chronic low back pain, Other (has spinal stimulator) Rheumatology: Yes: Vasculitis, Other (Scleroderma, Raynauds and CREST syndrome) Endocrine: Yes: Hypothyroidism, Other (Malnutrition, osteoporosis) Dermatology: Yes: Cellulitis - Past Surgical History Past Surgical History: Yes: Appendectomy, Colonoscopy, Upper Endoscopy - Alcohol/Substance Use Hx Alcohol Use: No History of Substance Use: reports: Marijuana, Prescription - Smoking History Smoking history: Former smoker Have you smoked in the past 12 months: Yes Aproximately how many cigarettes per day: 10 If you are a former smoker, when did you quit?: 4 years ago - Social History Usual Living Arrangement: With Parent ADL: Independent Occupation: disabled History of Recent Travel: No Home Medications - Allergies Allergies/Adverse Reactions: Allergies Allergy/AdvReac Type Severity Reaction Status Date / Time Penicillins Allergy Severe Hives Verified 03/16/17 10:22 tomato AdvReac Uncoded 03/16/17 10:22 - Home Medications Home Medications: Ambulatory Orders Duloxetine HCl [Cymbalta -] 60 mg PO DAILY #30 capsule. 03/10/15 Albuterol 0.083% Nebulizer Cinthya [Ventolin 0.083% Nebulizer Soln -] 1 amp NEB Q4H PRN #1 amp 04/11/16 Aspirin [ASA -] 81 mg PO DAILY tab.chew 04/11/16 Budesonide/Formeterol Fumarate [SYMBICORT 80/4.5mcg -] 2 puff IH BID #1 inhaler 04/11/16 Ranitidine [Zantac -] 150 mg PO DAILY 05/27/16 Gabapentin [Neurontin -] 800 mg PO TID capsule 05/28/16 Aclidinium [place] [Tudorza -] 1 puff IH DAILY inhaler 07/20/16 Lactobacillus Acidophilus [Bacid -] 1 each PO DAILY #30 capsule 07/20/16 Metoclopramide HCl [Reglan -] 10 mg PO ACHS tablet 07/20/16 Acetaminophen [Tylenol .Regular Strength -] 650 mg PO Q6H PRN #0 tablet Hydroxychloroquine So4 [Plaquenil -] 200 mg PO BID tablet 07/31/16 Pantoprazole Sodium [Protonix -] 40 mg PO BID tablet.ec 07/31/16 Cyclobenzaprine HCl [Flexeril -] 5 mg PO BID PRN #20 tablet 09/16/16 Lidocaine 5% Patch [Lidoderm -] 2 patch TP DAILY #60 patch 09/16/16 Albuterol 2.5/Ipratropium 0.5 [Duoneb -] 1 amp NEB BID amp 12/17/16 Multivitamins [Multivit ([facility] Formulary)] 1 tab PO DAILY tab 12/17/16 Magnesium Oxide [Mag-Ox -] 400 mg PO BID #30 tablet MDD 2 12/18/16 Potassium Chloride [K-Dur -] 20 meq PO DAILY #30 tab 12/18/16 Bisacodyl Suppository [Dulcolax Suppository -] 10 mg RC DAILY PRN #0 supp.rect 01/01/17 Metronidazole [Flagyl -] 500 mg PO TID #15 tablet 01/01/17 Family Disease History - Family Disease History Family Disease History: Diabetes: Father (HCV), Heart Disease: Father, Mother, Other: Father, Brother (HIV) Review of Systems - Review of Systems Constitutional: reports: No Symptoms Eyes: reports: No Symptoms HENT: reports: No Symptoms Neck: reports: No Symptoms Cardiovascular: reports: No Symptoms Gastrointestinal: reports: Diarrhea Genitourinary: reports: No Symptoms Breasts: reports: No Symptoms Reported Musculoskeletal: reports: No Symptoms Integumentary: reports: No Symptoms Neurological: reports: No Symptoms Endocrine: reports: No Symptoms Hematology/Lymphatic: reports: No Symptoms Psychiatric: reports: No Symptoms Vital Signs: Vital Signs Temperature 97.6 F 03/16/17 17:01 Pulse Rate 76 03/16/17 17:01 Respiratory Rate 22 03/16/17 17:01 Blood Pressure 82/58 03/16/17 17:01 O2 Sat by Pulse Oximetry (%) 96 03/16/17 16:00 Constitutional: Yes: Well Nourished, No Distress, Calm Eyes: Yes: WNL, Conjunctiva Clear, EOM Intact HENT: Yes: WNL, Atraumatic, Normocephalic Neck: Yes: WNL, Supple, Trachea Midline Respiratory: Yes: WNL, Regular, CTA Bilaterally Gastrointestinal: Yes: WNL, Normal Bowel Sounds Renal/: Yes: WNL Cardiovascular: Yes: WNL, Regular Rate and Rhythm Musculoskeletal: Yes: WNL Extremities: Yes: Amputation Integumentary: Yes: WNL Neurological: Yes: WNL, Alert, Oriented ...Motor Strength: WNL Psychiatric: Yes: WNL, Alert, Oriented Imaging - Results Chest X-ray: Image Reviewed (no i/e) EKG: Image Reviewed (sr prolonged qt) Problem List - Problems (1) Diarrhea Code(s): R19.7 - DIARRHEA, UNSPECIFIED (2) Hypokalemia Code(s): E87.6 - HYPOKALEMIA (3) Vomiting Code(s): R11.10 - VOMITING, UNSPECIFIED (4) Abdominal distention Code(s): R14.0 - ABDOMINAL DISTENSION (GASEOUS) (5) Abdominal pain Code(s): R10.9 - UNSPECIFIED ABDOMINAL PAIN (6) Acidosis Code(s): E87.2 - ACIDOSIS (7) Acute renal failure Code(s): N17.9 - ACUTE KIDNEY FAILURE, UNSPECIFIED Qualifiers: Acute renal failure type: unspecified Qualified Code(s): N17.9 - Acute kidney failure, unspecified (8) Acute respiratory failure Code(s): J96.00 - ACUTE RESPIRATORY FAILURE, UNSP W HYPOXIA OR HYPERCAPNIA Qualifiers: Respiratory failure complication: hypercapnia Qualified Code(s): J96.02 - Acute respiratory failure with hypercapnia (9) Altered awareness, transient Code(s): R40.4 - TRANSIENT ALTERATION OF AWARENESS (10) Anemia Code(s): D64.9 - ANEMIA, UNSPECIFIED Qualifiers: Anemia type: iron deficiency Iron deficiency anemia type: unspecified iron deficiency Qualified Code(s): D50.9 - Iron deficiency anemia, unspecified (11) Atelectasis Code(s): J98.11 - ATELECTASIS (12) Bandemia Code(s): D72.825 - BANDEMIA (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 Code(s): K22.70 - BONNER'S ESOPHAGUS WITHOUT DYSPLASIA (14) 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 Code(s): K22.70 - BONNER'S ESOPHAGUS WITHOUT DYSPLASIA (15) Bilateral pneumonia Code(s): J18.9 - PNEUMONIA, UNSPECIFIED ORGANISM Qualifiers: (16) Bursitis Code(s): M71.9 - BURSOPATHY, UNSPECIFIED (17) CHF (congestive heart failure) Code(s): I50.9 - HEART FAILURE, UNSPECIFIED (18) COPD (chronic obstructive pulmonary disease) Code(s): J44.9 - CHRONIC OBSTRUCTIVE PULMONARY DISEASE, UNSPECIFIED (19) COPD exacerbation Code(s): J44.1 - CHRONIC OBSTRUCTIVE PULMONARY DISEASE W (ACUTE) EXACERBATION (20) CREST (calcinosis, Raynaud's phenomenon, esophageal dysfunction, sclerodactyly, telangiectasia) Code(s): M34.1 - CR(E)ST SYNDROME (21) CREST syndrome Code(s): M34.1 - CR(E)ST SYNDROME (22) CREST variant of scleroderma Code(s): M34.1 - CR(E)ST SYNDROME (23) Cellulitis Code(s): L03.90 - CELLULITIS, UNSPECIFIED Qualifiers: Site of cellulitis: extremity Site of cellulitis of extremity: lower extremity Laterality: left Qualified Code(s): L03.116 - Cellulitis of left lower limb (24) Cellulitis of both lower extremities Code(s): L03.115 - CELLULITIS OF RIGHT LOWER LIMB L03.116 - CELLULITIS OF LEFT LOWER LIMB (25) Cellulitis of left foot Code(s): L03.116 - CELLULITIS OF LEFT LOWER LIMB (26) Cellulitis of right foot Code(s): L03.115 - CELLULITIS OF RIGHT LOWER LIMB (27) Chest pain made worse by breathing Code(s): R07.1 - CHEST PAIN ON BREATHING (28) Chronic back pain Code(s): M54.9 - DORSALGIA, UNSPECIFIED G89.29 - OTHER CHRONIC PAIN (29) Chronic back pain greater than 3 months duration Code(s): M54.9 - DORSALGIA, UNSPECIFIED G89.29 - OTHER CHRONIC PAIN (30) Chronic diastolic CHF (congestive heart failure) Code(s): I50.32 - CHRONIC DIASTOLIC (CONGESTIVE) HEART FAILURE (31) Chronic low back pain Code(s): M54.5 - LOW BACK PAIN G89.29 - OTHER CHRONIC PAIN (32) Chronic renal failure Code(s): N18.9 - CHRONIC KIDNEY DISEASE, UNSPECIFIED (33) Chronic use of opiate drugs therapeutic purposes Code(s): Z79.899 - OTHER WATER CHASER (CURRENT) DRUG THERAPY (34) Cigarette nicotine dependence Code(s): F17.210 - NICOTINE DEPENDENCE, CIGARETTES, UNCOMPLICATED (35) Coffee ground vomiting Code(s): K92.0 - HEMATEMESIS (36) Constipation by delayed colonic transit Code(s): K59.01 - SLOW TRANSIT CONSTIPATION (37) Contact dermatitis Code(s): L25.9 - UNSPECIFIED CONTACT DERMATITIS, UNSPECIFIED CAUSE (38) Coronary artery disease Code(s): I25.10 - ATHSCL HEART DISEASE OF [place] CORONARY ARTERY W/O ANG PCTRS (39) Dark stools Code(s): R19.5 - OTHER FECAL ABNORMALITIES (40) Dehydration Code(s): E86.0 - DEHYDRATION (41) Dermatitis Code(s): L30.9 - DERMATITIS, UNSPECIFIED (42) Diverticulosis of both small and large intestine Code(s): K57.50 - DVRTCLOS OF BOTH SM AND LG INT W/O PERF OR ABSCS W/O BLEED (43) Dysphagia Code(s): R13.10 - DYSPHAGIA, UNSPECIFIED (44) Esophageal dysmotility Code(s): K22.4 - DYSKINESIA OF ESOPHAGUS (45) Fecal incontinence Code(s): R15.9 - FULL INCONTINENCE OF FECES (46) Fever Code(s): R50.9 - FEVER, UNSPECIFIED (47) Fever and chills Code(s): R50.9 - FEVER, UNSPECIFIED (48) Finger infection Code(s): L08.9 - LOCAL INFECTION OF THE SKIN AND SUBCUTANEOUS TISSUE, UNSP (49) [place] cardiac risk >20% in next 10 years Code(s): Z91.89 - OTH PERSONAL RISK FACTORS, NOT ELSEWHERE CLASSIFIED (50) GAVE (gastric antral vascular ectasia) Code(s): K31.819 - ANGIODYSPLASIA OF STOMACH AND DUODENUM WITHOUT BLEEDING (51) GERD (gastroesophageal reflux disease) Code(s): K21.9 - GASTRO-ESOPHAGEAL REFLUX DISEASE WITHOUT ESOPHAGITIS (52) Gastric ulcer Code(s): K25.9 - GASTRIC ULCER, UNSP ACUTE OR CHRONIC, W/O HEMOR OR PERF (53) Gastroparesis Code(s): K31.84 - GASTROPARESIS (54) HCAP (healthcare-associated pneumonia) Code(s): J18.9 - PNEUMONIA, UNSPECIFIED ORGANISM (55) Has smoked cigarettes within prior year Code(s): Z87.891 - PERSONAL HISTORY OF NICOTINE DEPENDENCE (56) Hypochloremia Code(s): E87.8 - OTH DISORDERS OF ELECTROLYTE AND FLUID BALANCE, NEC (57) Hypomagnesemia Code(s): E83.42 - HYPOMAGNESEMIA (58) Hyponatremia Code(s): E87.1 - HYPO-OSMOLALITY AND HYPONATREMIA (59) Infected elbow Code(s): L08.9 - LOCAL INFECTION OF THE SKIN AND SUBCUTANEOUS TISSUE, UNSP (60) Injury of head Code(s): S09.90XA - UNSPECIFIED INJURY OF HEAD, INITIAL ENCOUNTER (61) Interstitial lung disease Code(s): J84.9 - INTERSTITIAL PULMONARY DISEASE, UNSPECIFIED (62) Intractable vomiting Code(s): R11.10 - VOMITING, UNSPECIFIED (63) Lactic acidosis Code(s): E87.2 - ACIDOSIS (64) Leukocytosis Code(s): D72.829 - ELEVATED WHITE BLOOD CELL COUNT, UNSPECIFIED (65) Localized rash Code(s): R21 - RASH AND OTHER NONSPECIFIC SKIN ERUPTION (66) Lumbar back pain Code(s): M54.5 - LOW BACK PAIN Qualifiers: Chronicity: chronic (67) Lumbar radicular pain Code(s): M54.16 - RADICULOPATHY, LUMBAR REGION (68) Lumbar radiculopathy, chronic Code(s): M54.16 - RADICULOPATHY, LUMBAR REGION (69) Malnutrition Code(s): E46 - UNSPECIFIED PROTEIN-CALORIE MALNUTRITION (70) Medication requested by patient but not prescribed or administered Code(s): TRQ0838 - (71) Monocytosis Code(s): D72.821 - MONOCYTOSIS (SYMPTOMATIC) (72) Opiate dependence Code(s): F11.20 - OPIOID DEPENDENCE, UNCOMPLICATED (73) Opioid abuse with intoxication Code(s): F11.129 - OPIOID ABUSE WITH INTOXICATION, UNSPECIFIED (74) Opioid dependence, uncomplicated Code(s): F11.20 - OPIOID DEPENDENCE, UNCOMPLICATED (75) Osteomyelitis Code(s): M86.9 - OSTEOMYELITIS, UNSPECIFIED (76) Overdose Code(s): T50.901A - POISONING BY UNSP DRUG/MEDS/BIOL SUBST, ACCIDENTAL, INIT Qualifiers: Encounter type: initial encounter Injury intent: accidental or unintentional Qualified Code(s): T50.901A - Poisoning by unspecified drugs, medicaments and biological substances, accidental (unintentional), initial encounter (77) Pain management Code(s): R52 - PAIN, UNSPECIFIED (78) Partial small bowel obstruction Code(s): K56.69 - OTHER INTESTINAL OBSTRUCTION (79) Penicillin allergy Code(s): Z88.0 - ALLERGY STATUS TO PENICILLIN (80) Pneumonia Code(s): J18.9 - PNEUMONIA, UNSPECIFIED ORGANISM Qualifiers: (81) Pneumonia due to infectious organism Code(s): B99.9 - UNSPECIFIED INFECTIOUS DISEASE J17 - PNEUMONIA IN DISEASES CLASSIFIED ELSEWHERE Qualifiers: Laterality: bilateral Lung location: unspecified part of lung Qualified Code(s): J18.9 - Pneumonia, unspecified organism (82) Pneumoperitoneum Code(s): K66.8 - OTHER SPECIFIED DISORDERS OF PERITONEUM (83) Pseudo-obstruction of intestine Code(s): K59.8 - OTHER SPECIFIED FUNCTIONAL INTESTINAL DISORDERS (84) Raynauds disease Code(s): I73.00 - RAYNAUD'S SYNDROME WITHOUT GANGRENE (85) Renal failure Code(s): N19 - UNSPECIFIED KIDNEY FAILURE (86) Renal insufficiency Code(s): N28.9 - DISORDER OF KIDNEY AND URETER, UNSPECIFIED (87) Schatzki's ring Code(s): K22.2 - ESOPHAGEAL OBSTRUCTION (88) Scleroderma Code(s): M34.9 - SYSTEMIC SCLEROSIS, UNSPECIFIED (89) Scleroderma progressive Code(s): M34.0 - PROGRESSIVE SYSTEMIC SCLEROSIS (90) Sepsis Code(s): A41.9 - SEPSIS, UNSPECIFIED ORGANISM (91) Severe sepsis Code(s): A41.9 - SEPSIS, UNSPECIFIED ORGANISM R65.20 - SEVERE SEPSIS WITHOUT SEPTIC SHOCK (92) Skin rash Code(s): R21 - RASH AND OTHER NONSPECIFIC SKIN ERUPTION (93) Small bowel obstruction Code(s): K56.69 - OTHER INTESTINAL OBSTRUCTION (94) Transfusion of blood during current hospitalization Code(s): [id number] - (95) Valvular heart disease Code(s): I38 - ENDOCARDITIS, VALVE UNSPECIFIED (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 Normal coronaries on cardiac cath and EF 65% with mild AI, trace [place] [facility] [place], HLD, asthma, scleroderma, gastroparesis, Raynauds, CREST syndrome, hypothyroidism, and chronic aspiration PNA with drug resistance admitted with diarrhea Plan cardiac stallworth stable cont telemetry
[2017-03-17 07:47] LABS: MCH 27.5 pg (25.7-33.7); MCHC 32.4 g/dl (32.0-36.0); MEAN PLT VOLUME 8.4 fl (7.5-11.1); PLATELET COUNT 298 K/MM3 (134-434); RDW 17.8 % (11.6-15.6); WHITE BLOOD COUNT 7.6 K/mm3 (4.0-10.0)
[2017-03-17 08:14] LABS: ALBUMIN 2.1 g/dl (3.4-5.0); ANION GAP 7 (8-16); CALCIUM 7.8 mg/dL (8.5-10.1); CO2 36 mmol/L (21-32); CREATININE 0.6 mg/dL (0.55-1.02); GLUCOSE,RANDOM 63 mg/dL (74-106); MAGNESIUM 1.9 mg/dL (1.8-2.4); SGOT/AST 22 U/L (15-37); SGPT/ALT 17 U/L (12-78)
[2017-03-17 08:16] LABS: ALK PHOS 34 U/L (45-117); BILIRUBIN,TOTAL 0.2 mg/dL (0.2-1.0); TOT PROT 5.3 g/dl (6.4-8.2)
--- NOTE | 2017-03-17 09:06 | CON.GI ---
Consult Consult Specialty:: GI Referred by:: Dr. Eva Gonzalez Reason for Consultation:: Vomiting - History of Present Illness Chief Complaint: I was vomiting for three days History of Present Illness: 52F with scleroderma and recurrent vomiting that has led to dehydration, hypotension and lactic acidosis in the past. Currently she has had three days of intermittent vomiting, the last episode she states as being three days ago. She has a history of scleroderma likely affecting her GI tract and takes 15mg of MS contin BID daily along with 80mg of oxycontin BID. She also has exhibited chronic pseudobstructive patterns on her previous imaging studies and has a history of chronic constipation. In 12/31 she had an exploratory laparotomy for pneumoperitoneum but no perforation was found. She s felt to have perforated a small bowel diverticulum in the past which was managed conservatively. Her last colonoscopy was on 06/15/15 and revealed mild left colon diverticulosis. EGD on revealed copious laryngeal reflux, long segment Bonner's esophagus, a hiatal hernia, diffuse atrophic gastritis, large duodenal diverticulum and angiodysplasia in the 2nd portion. She currently denies abdominal pain and wants to eat. FUA and CT scan reveals distended bowel loops, stool in colon but no overt obstruction. 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), GERD (with long segment Bonner's esophagus and patent Schatzki ring), Peptic Ulcer Disease (antral ulcer ), Other (Bonner's esophagus, GERD, Schatzki ring, perforation of small bowel diverticulum, antral ulcer, scleroderma causing esophageal dysmotility and gastroparesis, GERD with long segment Bonner's esophagus,Schatzki ring,GAVE syndrome) Renal/: Yes: Renal Failure Infectious Disease: Yes: MRSA (bursitis) Psych: Yes: Addictions (marijuana,tobacco and prescription narcotics) Musculoskeletal: Yes: Chronic low back pain, Other (has spinal stimulator) Rheumatology: Yes: Vasculitis, Other (Scleroderma, Raynauds and CREST syndrome) Endocrine: Yes: Hypothyroidism, Other (Malnutrition, osteoporosis) Dermatology: Yes: Cellulitis - Past Surgical History Past Surgical History: Yes: Appendectomy, Colonoscopy, Upper Endoscopy Additional Surgical History: Laparoscopy - Alcohol/Substance Use Hx Alcohol Use: No History of Substance Use: reports: Marijuana, Prescription (Opiates) - Smoking History Smoking history: Current every day smoker Have you smoked in the past 12 months: Yes Aproximately how many cigarettes per day: 10 If you are a former smoker, when did you quit?: 4 years ago - Social History Usual Living Arrangement: With Parent ADL: Independent Occupation: disabled Place of : [facility] History of Recent Travel: No Home Medications - Allergies Allergies/Adverse Reactions: Allergies Allergy/AdvReac Type Severity Reaction Status Date / Time Penicillins Allergy Severe Hives Verified 03/16/17 10:22 tomato AdvReac Uncoded 03/16/17 10:22 - Home Medications Home Medications: Ambulatory Orders Duloxetine HCl [Cymbalta -] 60 mg PO DAILY #30 capsule. 03/10/15 Albuterol 0.083% Nebulizer Cinthya [Ventolin 0.083% Nebulizer Soln -] 1 amp NEB Q4H PRN #1 amp 04/11/16 Aspirin [ASA -] 81 mg PO DAILY tab.chew 04/11/16 Budesonide/Formeterol Fumarate [SYMBICORT 80/4.5mcg -] 2 puff IH BID #1 inhaler 04/11/16 Ranitidine [Zantac -] 150 mg PO DAILY 05/27/16 Gabapentin [Neurontin -] 800 mg PO TID capsule 05/28/16 Aclidinium [place] [Tudorza -] 1 puff IH DAILY inhaler 07/20/16 Lactobacillus Acidophilus [Bacid -] 1 each PO DAILY #30 capsule 07/20/16 Metoclopramide HCl [Reglan -] 10 mg PO ACHS tablet 07/20/16 Acetaminophen [Tylenol .Regular Strength -] 650 mg PO Q6H PRN #0 tablet Hydroxychloroquine So4 [Plaquenil -] 200 mg PO BID tablet 07/31/16 Pantoprazole Sodium [Protonix -] 40 mg PO BID tablet.ec 07/31/16 Cyclobenzaprine HCl [Flexeril -] 5 mg PO BID PRN #20 tablet 09/16/16 Lidocaine 5% Patch [Lidoderm -] 2 patch TP DAILY #60 patch 09/16/16 Albuterol 2.5/Ipratropium 0.5 [Duoneb -] 1 amp NEB BID amp 12/17/16 Multivitamins [Multivit ([facility] Formulary)] 1 tab PO DAILY tab 12/17/16 Magnesium Oxide [Mag-Ox -] 400 mg PO BID #30 tablet MDD 2 12/18/16 Potassium Chloride [K-Dur -] 20 meq PO DAILY #30 tab 12/18/16 Bisacodyl Suppository [Dulcolax Suppository -] 10 mg RC DAILY PRN #0 supp.rect 01/01/17 Metronidazole [Flagyl -] 500 mg PO TID #15 tablet 01/01/17 Family Disease History - Family Disease History Family Disease History: Diabetes: Father (HCV), Heart Disease: Father, Mother, Other: Father, Brother (HIV) Review of Systems - Review of Systems Constitutional: denies: Chills, Fever Cardiovascular: denies: Chest Pain Respiratory: denies: SOB Gastrointestinal: reports: Constipation, Diarrhea, Vomiting. denies: Abdominal Pain, Rectal Bleeding Physical Exam-GI Vital Signs: Vital Signs Temperature 97.2 F L 03/17/17 06:35 Pulse Rate 60 03/17/17 06:35 Respiratory Rate 17 03/17/17 06:35 Blood Pressure 91/58 03/17/17 06:35 O2 Sat by Pulse Oximetry (%) 100 03/17/17 06:35 Constitutional: Yes: Calm Eyes: No: Sclera Icterus Cardiovascular: Yes: Regular Rate and Rhythm, Murmur Respiratory: Yes: Diminished (at bases b/l, poor insp effort) Gastrointestinal Inspection: Yes: Scars (midline vertical surgical scar). No: Distention ...Auscultate: Yes: Normoactive Bowel Sounds ...Palpate: No: Tenderness ...Percussion: No: Tympanitic ...Rectal Exam: Yes: Deferred (refused by patient) Edema: No Neurological: Yes: Alert, Oriented Labs: CBC, BMP 03/17/17 05:35 03/17/17 05:35 Hepatic Panel Total Bilirubin 0.2 mg/dL (0.2-1.0) 03/17/17 05:35 AST 22 U/L (15-37) D 03/17/17 05:35 ALT 17 U/L (12-78) D 03/17/17 05:35 Alkaline Phosphatase 34 U/L (45-117) L 03/17/17 05:35 Albumin 2.1 g/dl (3.4-5.0) L D 03/17/17 05:35 Problem List - Problems (1) Pseudo-obstruction of intestine Assessment/Plan: Petra's vomiting appears to be the combination of opioid usage superimposed on her scleroderma associated gastroparesis and pseudobstruction. She describes loose bowel movements but I believe that this is paradoxical diarrhea in the setting of fecal retention. Advance to clears for now and monitor then advance as tolerated. If vomiting persists, consider NGT placement however Perta says she would not have one put in. Continue PPI therapy given her laryngeal reflux and Bonner's. Ideally she needs to be weaned off of her opiates and have her opiate dependency treated. Continue electrolyte correction Code(s): K59.8 - OTHER SPECIFIED FUNCTIONAL INTESTINAL DISORDERS
[2017-03-17] MEDS: PANTOPRAZOLE SODIUM 100 ML IVPB SCH (10:00)
--- NOTE | 2017-03-17 10:54 | PN ---
Progress Note, Physician History of Present Illness: Pt w/o N, V, abd pain, SOB, CP, cg, fever Pt want to eat regular food - Current Medication List Current Medications: Active Medications Potassium Chloride 20 meq/ (Sodium Chloride) 1,010 mls @ 75 mls/hr IVPB ASDIR [facility] Last Admin: 03/16/17 18:17 Dose: 75 mls/hr Pantoprazole Sodium (Protonix 40mg Ivpb (Pre-Docked)) 100 mls @ 200 mls/hr IVPB DAILY [facility] Last Admin: 03/17/17 10:00 Dose: 200 mls/hr Potassium Chloride (Potassium Chloride Oral Liquid) 40 meq PO BID [facility] Stop: 03/18/17 10:44 - Objective Vital Signs: Vital Signs Temperature 97.2 F L 03/17/17 06:35 Pulse Rate 60 03/17/17 06:35 Respiratory Rate 17 03/17/17 06:35 Blood Pressure 91/58 03/17/17 06:35 O2 Sat by Pulse Oximetry (%) 100 03/17/17 06:35 Constitutional: Yes: No Distress, Calm Cardiovascular: Yes: Regular Rate and Rhythm, S1, S2 Respiratory: Yes: Regular, CTA Bilaterally Gastrointestinal: Yes: Normal Bowel Sounds, Soft. No: Tenderness Edema: No Neurological: Yes: Alert, Oriented Labs: CBC, BMP 03/17/17 05:35 03/17/17 05:35 Problem List - Problems (1) Diarrhea Code(s): R19.7 - DIARRHEA, UNSPECIFIED (2) Hypokalemia Code(s): E87.6 - HYPOKALEMIA (3) Vomiting Code(s): R11.10 - VOMITING, UNSPECIFIED (4) Hyponatremia Code(s): E87.1 - HYPO-OSMOLALITY AND HYPONATREMIA (5) Opiate dependence Code(s): F11.20 - OPIOID DEPENDENCE, UNCOMPLICATED (6) Acute renal failure Code(s): N17.9 - ACUTE KIDNEY FAILURE, UNSPECIFIED Qualifiers: Acute renal failure type: unspecified Qualified Code(s): N17.9 - Acute kidney failure, unspecified (7) COPD (chronic obstructive pulmonary disease) Code(s): J44.9 - CHRONIC OBSTRUCTIVE PULMONARY DISEASE, UNSPECIFIED (8) CREST (calcinosis, Raynaud's phenomenon, esophageal dysfunction, sclerodactyly, telangiectasia) Code(s): M34.1 - CR(E)ST SYNDROME (9) Chronic back pain Code(s): M54.9 - DORSALGIA, UNSPECIFIED G89.29 - OTHER CHRONIC PAIN Assessment/Plan Admit to Telemetry Renal consult Cardio consult appreciated GI consult appreciated- statrted on clesr liquids IVF to continue Replete K and monitor DVT proph GI proph AM labs
[2017-03-17] MEDS: POTASSIUM CHLORIDE ORAL LIQUID 20 MEQ/15 ML PO SCH ×2 (11:59→22:55)
--- NOTE | 2017-03-17 12:02 | PN ---
Progress Note, Physician History of Present Illness: The patient is a 52 year old female, with a significant past medical history of COPD, CHF, narcotic abuse, HLD, asthma, scleroderma, gastroparesis, Raynauds, CREST syndrome, hypothyroidism, and chronic aspiration PNA with drug resistance , who presents to the emergency department with a few episodes of diarrhea and brown emesis since last night. She reports her diarrhea is watery and brown. She denies blood per rectum. She reports a couple of episodes of brown, liquid emesis last night and today. She denies abdominal pain. She states she is cold right now. She denies chest pain, shortness of breath, headache and dizziness. She denies fever, and constipation. She denies dysuria, frequency, urgency and hematuria. Allergies: penicillin Past surgical history: abdominal exploratory laparotomy (12/23/16), multiple upper extremity digit amputations, appendectomy, colonoscopy, upper endoscopy, LS/Rods and bone fusions, multiple back Sx PCP - Dr. Eva Gonzalez - Current Medication List Current Medications: Active Medications Potassium Chloride 20 meq/ (Sodium Chloride) 1,010 mls @ 75 mls/hr IVPB ASDIR [facility] Last Admin: 03/16/17 18:17 Dose: 75 mls/hr Pantoprazole Sodium (Protonix 40mg Ivpb (Pre-Docked)) 100 mls @ 200 mls/hr IVPB DAILY [facility] Last Admin: 03/17/17 10:00 Dose: 200 mls/hr Potassium Chloride (Potassium Chloride Oral Liquid) 40 meq PO BID [facility] Stop: 03/18/17 10:44 Last Admin: 03/17/17 11:59 Dose: 40 meq - Objective Vital Signs: Vital Signs Temperature 97.2 F L 03/17/17 06:35 Pulse Rate 60 03/17/17 06:35 Respiratory Rate 03/17/17 06:35 Blood Pressure 91/58 03/17/17 06:35 O2 Sat by Pulse Oximetry (%) 100 03/17/17 06:35 Eyes: Yes: WNL, Conjunctiva Clear, EOM Intact HENT: Yes: WNL, Atraumatic, Normocephalic Neck: Yes: WNL, Supple, Trachea Midline Cardiovascular: Yes: WNL, Regular Rate and Rhythm Respiratory: Yes: WNL, Regular, CTA Bilaterally Gastrointestinal: Yes: WNL, Normal Bowel Sounds Genitourinary: Yes: WNL Musculoskeletal: Yes: WNL Extremities: Yes: Amputation Edema: No Integumentary: Yes: WNL Neurological: Yes: WNL, Alert, Oriented ...Motor Strength: WNL Psychiatric: Yes: WNL Labs: CBC, BMP 03/17/17 05:35 03/17/17 05:35 Laboratory Tests 03/16/17 03/16/17 03/16/17 10:57 10:57 11:05 WBC 10.6 H D RBC 3.82 D Hgb 10.6 L D Hct 32.3 L D MCV 84.4 MCHC 33.0 RDW 18.2 H D Plt Count 371 MPV 8.3 Neutrophils % 80.1 D Lymphocytes % 8.6 D Monocytes % 7.7 Eosinophils % 3.4 D Basophils % 0.2 Sodium Potassium Chloride Carbon Dioxide Anion Gap BUN Creatinine Creat Clearance w eGFR Random Glucose Lactic Acid 1.0 Calcium Phosphorus Magnesium Total Bilirubin AST ALT Alkaline Phosphatase Total Protein Albumin Lipase Urine Color Urine Appearance Urine pH Ur Specific [place] Urine Protein Urine Glucose (UA) Urine Ketones Urine Blood Urine Nitrite Urine Bilirubin Urine Urobilinogen Ur Leukocyte Esterase Urine RBC Urine WBC Hyaline Casts Urine Mucus Opiates Screen Positive Methadone Screen Negative Barbiturate Screen Negative Phencyclidine Screen Negative Ur Amphetamines Screen Negative MDMA (Ecstasy) Screen Negative Benzodiazepines Screen Negative Cocaine Screen Negative U Marijuana (THC) Screen Negative 03/16/17 03/16/17 03/17/17 11:05 12:10 05:35 WBC 7.6 RBC 3.35 L Hgb 9.2 L D Hct 28.5 L MCV 85.0 MCHC 32.4 RDW 17.8 H Plt Count 298 MPV 8.4 Neutrophils % Lymphocytes % Monocytes % Eosinophils % Basophils % Sodium 127 L Potassium 2.6 L* D Chloride 72 L D Carbon Dioxide 44 H D Anion Gap 11 BUN 43 H D Creatinine 1.4 H D Creat Clearance w eGFR 39.34 Random Glucose 87 D Lactic Acid Calcium 8.9 Phosphorus 3.8 D Magnesium 2.2 D Total Bilirubin 0.2 D AST 35 D ALT 26 D Alkaline Phosphatase 40 L Total Protein 7.0 Albumin 2.9 L D Lipase 51 L Urine Color Ltyellow Urine Appearance Clear Urine pH 5.0 Ur Specific [place] 1.020 Urine Protein Negative Urine Glucose (UA) Negative Urine Ketones Negative Urine Blood 1+ H Urine Nitrite Negative Urine Bilirubin Negative Urine Urobilinogen Negative Ur Leukocyte Esterase Negative Urine RBC 7 Urine WBC <1 Hyaline Casts 34 Urine Mucus Rare Opiates Screen Methadone Screen Barbiturate Screen Phencyclidine Screen Ur Amphetamines Screen MDMA (Ecstasy) Screen Benzodiazepines Screen Cocaine Screen U Marijuana (THC) Screen 03/17/17 05:35 WBC RBC Hgb Hct MCV MCHC RDW Plt Count MPV Neutrophils % Lymphocytes % Monocytes % Eosinophils % Basophils % Sodium 134 L Potassium 3.1 L Chloride 91 L D Carbon Dioxide 36 H Anion Gap 7 L BUN 26 H D Creatinine 0.6 D Creat Clearance w eGFR > 60 Random Glucose 63 L D Lactic Acid Calcium 7.8 L Phosphorus Magnesium 1.9 Total Bilirubin 0.2 AST 22 D ALT 17 D Alkaline Phosphatase 34 L Total Protein 5.3 L D Albumin 2.1 L D Lipase Urine Color Urine Appearance Urine pH Ur Specific [place] Urine Protein Urine Glucose (UA) Urine Ketones Urine Blood Urine Nitrite Urine Bilirubin Urine Urobilinogen Ur Leukocyte Esterase Urine RBC Urine WBC Hyaline Casts Urine Mucus Opiates Screen Methadone Screen Barbiturate Screen Phencyclidine Screen Ur Amphetamines Screen MDMA (Ecstasy) Screen Benzodiazepines Screen Cocaine Screen U Marijuana (THC) Screen Problem List - Problems (1) Diarrhea Code(s): R19.7 - DIARRHEA, UNSPECIFIED (2) Hypokalemia Code(s): E87.6 - HYPOKALEMIA (3) Vomiting Code(s): R11.10 - VOMITING, UNSPECIFIED (4) Abdominal distention Code(s): R14.0 - ABDOMINAL DISTENSION (GASEOUS) (5) Abdominal pain Code(s): R10.9 - UNSPECIFIED ABDOMINAL PAIN (6) Acidosis Code(s): E87.2 - ACIDOSIS (7) Acute renal failure Code(s): N17.9 - ACUTE KIDNEY FAILURE, UNSPECIFIED Qualifiers: Acute renal failure type: unspecified Qualified Code(s): N17.9 - Acute kidney failure, unspecified (8) Acute respiratory failure Code(s): J96.00 - ACUTE RESPIRATORY FAILURE, UNSP W HYPOXIA OR HYPERCAPNIA Qualifiers: Respiratory failure complication: hypercapnia Qualified Code(s): J96.02 - Acute respiratory failure with hypercapnia (9) Altered awareness, transient Code(s): R40.4 - TRANSIENT ALTERATION OF AWARENESS (10) Anemia Code(s): D64.9 - ANEMIA, UNSPECIFIED Qualifiers: Anemia type: iron deficiency Iron deficiency anemia type: unspecified iron deficiency Qualified Code(s): D50.9 - Iron deficiency anemia, unspecified (11) Atelectasis Code(s): J98.11 - ATELECTASIS (12) Bandemia Code(s): D72.825 - BANDEMIA (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 Code(s): K22.70 - BONNER'S ESOPHAGUS WITHOUT DYSPLASIA (14) 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 Code(s): K22.70 - BONNER'S ESOPHAGUS WITHOUT DYSPLASIA (15) Bilateral pneumonia Code(s): J18.9 - PNEUMONIA, UNSPECIFIED ORGANISM Qualifiers: (16) Bursitis Code(s): M71.9 - BURSOPATHY, UNSPECIFIED (17) CHF (congestive heart failure) Code(s): I50.9 - HEART FAILURE, UNSPECIFIED (18) COPD (chronic obstructive pulmonary disease) Code(s): J44.9 - CHRONIC OBSTRUCTIVE PULMONARY DISEASE, UNSPECIFIED (19) COPD exacerbation Code(s): J44.1 - CHRONIC OBSTRUCTIVE PULMONARY DISEASE W (ACUTE) EXACERBATION (20) CREST (calcinosis, Raynaud's phenomenon, esophageal dysfunction, sclerodactyly, telangiectasia) Code(s): M34.1 - CR(E)ST SYNDROME (21) CREST syndrome Code(s): M34.1 - CR(E)ST SYNDROME (22) CREST variant of scleroderma Code(s): M34.1 - CR(E)ST SYNDROME (23) Cellulitis Code(s): L03.90 - CELLULITIS, UNSPECIFIED Qualifiers: Site of cellulitis: extremity Site of cellulitis of extremity: lower extremity Laterality: left Qualified Code(s): L03.116 - Cellulitis of left lower limb (24) Cellulitis of both lower extremities Code(s): L03.115 - CELLULITIS OF RIGHT LOWER LIMB L03.116 - CELLULITIS OF LEFT LOWER LIMB (25) Cellulitis of left foot Code(s): L03.116 - CELLULITIS OF LEFT LOWER LIMB (26) Cellulitis of right foot Code(s): L03.115 - CELLULITIS OF RIGHT LOWER LIMB (27) Chest pain made worse by breathing Code(s): R07.1 - CHEST PAIN ON BREATHING (28) Chronic back pain Code(s): M54.9 - DORSALGIA, UNSPECIFIED G89.29 - OTHER CHRONIC PAIN (29) Chronic back pain greater than 3 months duration Code(s): M54.9 - DORSALGIA, UNSPECIFIED G89.29 - OTHER CHRONIC PAIN (30) Chronic diastolic CHF (congestive heart failure) Code(s): I50.32 - CHRONIC DIASTOLIC (CONGESTIVE) HEART FAILURE (31) Chronic low back pain Code(s): M54.5 - LOW BACK PAIN G89.29 - OTHER CHRONIC PAIN (32) Chronic renal failure Code(s): N18.9 - CHRONIC KIDNEY DISEASE, UNSPECIFIED (33) Chronic use of opiate drugs therapeutic purposes Code(s): Z79.899 - 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) DRUG THERAPY (34) Cigarette nicotine dependence Code(s): F17.210 - NICOTINE DEPENDENCE, CIGARETTES, UNCOMPLICATED (35) Coffee ground vomiting Code(s): K92.0 - HEMATEMESIS (36) Constipation by delayed colonic transit Code(s): K59.01 - SLOW TRANSIT CONSTIPATION (37) Contact dermatitis Code(s): L25.9 - UNSPECIFIED CONTACT DERMATITIS, UNSPECIFIED CAUSE (38) Coronary artery disease Code(s): I25.10 - ATHSCL HEART DISEASE OF [place] CORONARY ARTERY W/O ANG PCTRS (39) Dark stools Code(s): R19.5 - OTHER FECAL ABNORMALITIES (40) Dehydration Code(s): E86.0 - DEHYDRATION (41) Dermatitis Code(s): L30.9 - DERMATITIS, UNSPECIFIED (42) Diverticulosis of both small and large intestine Code(s): K57.50 - DVRTCLOS OF BOTH SM AND LG INT W/O PERF OR ABSCS W/O BLEED (43) Dysphagia Code(s): R13.10 - DYSPHAGIA, UNSPECIFIED (44) Esophageal dysmotility Code(s): K22.4 - DYSKINESIA OF ESOPHAGUS (45) Fecal incontinence Code(s): R15.9 - FULL INCONTINENCE OF FECES (46) Fever Code(s): R50.9 - FEVER, UNSPECIFIED (47) Fever and chills Code(s): R50.9 - FEVER, UNSPECIFIED (48) Finger infection Code(s): L08.9 - LOCAL INFECTION OF THE SKIN AND SUBCUTANEOUS TISSUE, UNSP (49) Lowber cardiac risk >20% in next 10 years Code(s): Z91.89 - OTH PERSONAL RISK FACTORS, NOT ELSEWHERE CLASSIFIED (50) GAVE (gastric antral vascular ectasia) Code(s): K31.819 - ANGIODYSPLASIA OF STOMACH AND DUODENUM WITHOUT BLEEDING (51) GERD (gastroesophageal reflux disease) Code(s): K21.9 - GASTRO-ESOPHAGEAL REFLUX DISEASE WITHOUT ESOPHAGITIS (52) Gastric ulcer Code(s): K25.9 - GASTRIC ULCER, UNSP ACUTE OR CHRONIC, W/O HEMOR OR PERF (53) Gastroparesis Code(s): K31.84 - GASTROPARESIS (54) HCAP (healthcare-associated pneumonia) Code(s): J18.9 - PNEUMONIA, UNSPECIFIED ORGANISM (55) Has smoked cigarettes within prior year Code(s): Z87.891 - PERSONAL HISTORY OF NICOTINE DEPENDENCE (56) Hypochloremia Code(s): E87.8 - OTH DISORDERS OF ELECTROLYTE AND FLUID BALANCE, NEC (57) Hypomagnesemia Code(s): E83.42 - HYPOMAGNESEMIA (58) Hyponatremia Code(s): E87.1 - HYPO-OSMOLALITY AND HYPONATREMIA (59) Infected elbow Code(s): L08.9 - LOCAL INFECTION OF THE SKIN AND SUBCUTANEOUS TISSUE, UNSP (60) Injury of head Code(s): S09.90XA - UNSPECIFIED INJURY OF HEAD, INITIAL ENCOUNTER (61) Interstitial lung disease Code(s): J84.9 - INTERSTITIAL PULMONARY DISEASE, UNSPECIFIED (62) Intractable vomiting Code(s): R11.10 - VOMITING, UNSPECIFIED (63) Lactic acidosis Code(s): E87.2 - ACIDOSIS (64) Leukocytosis Code(s): D72.829 - ELEVATED WHITE BLOOD CELL COUNT, UNSPECIFIED (65) Localized rash Code(s): R21 - RASH AND OTHER NONSPECIFIC SKIN ERUPTION (66) Lumbar back pain Code(s): M54.5 - LOW BACK PAIN Qualifiers: Chronicity: chronic (67) Lumbar radicular pain Code(s): M54.16 - RADICULOPATHY, LUMBAR REGION (68) Lumbar radiculopathy, chronic Code(s): M54.16 - RADICULOPATHY, LUMBAR REGION (69) Malnutrition Code(s): E46 - UNSPECIFIED PROTEIN-CALORIE MALNUTRITION (70) Medication requested by patient but not prescribed or administered Code(s): [id number] - (71) Monocytosis Code(s): D72.821 - MONOCYTOSIS (SYMPTOMATIC) (72) Opiate dependence Code(s): F11.20 - OPIOID DEPENDENCE, UNCOMPLICATED (73) Opioid abuse with intoxication Code(s): F11.129 - OPIOID ABUSE WITH INTOXICATION, UNSPECIFIED (74) Opioid dependence, uncomplicated Code(s): F11.20 - OPIOID DEPENDENCE, UNCOMPLICATED (75) Osteomyelitis Code(s): M86.9 - OSTEOMYELITIS, UNSPECIFIED (76) Overdose Code(s): T50.901A - POISONING BY UNSP DRUG/MEDS/BIOL SUBST, ACCIDENTAL, INIT Qualifiers: Encounter type: initial encounter Injury intent: accidental or unintentional Qualified Code(s): T50.901A - Poisoning by unspecified drugs, medicaments and biological substances, accidental (unintentional), initial encounter (77) Pain management Code(s): R52 - PAIN, UNSPECIFIED (78) Partial small bowel obstruction Code(s): K56.69 - OTHER INTESTINAL OBSTRUCTION (79) Penicillin allergy Code(s): Z88.0 - ALLERGY STATUS TO PENICILLIN (80) Pneumonia Code(s): J18.9 - PNEUMONIA, UNSPECIFIED ORGANISM Qualifiers: (81) Pneumonia due to infectious organism Code(s): B99.9 - UNSPECIFIED INFECTIOUS DISEASE J17 - PNEUMONIA IN DISEASES CLASSIFIED ELSEWHERE Qualifiers: Laterality: bilateral Lung location: unspecified part of lung Qualified Code(s): J18.9 - Pneumonia, unspecified organism (82) Pneumoperitoneum Code(s): K66.8 - OTHER SPECIFIED DISORDERS OF PERITONEUM (83) Pseudo-obstruction of intestine Code(s): K59.8 - OTHER SPECIFIED FUNCTIONAL INTESTINAL DISORDERS (84) Raynauds disease Code(s): I73.00 - RAYNAUD'S SYNDROME WITHOUT GANGRENE (85) Renal failure Code(s): N19 - UNSPECIFIED KIDNEY FAILURE (86) Renal insufficiency Code(s): N28.9 - DISORDER OF KIDNEY AND URETER, UNSPECIFIED (87) Schatzki's ring Code(s): K22.2 - ESOPHAGEAL OBSTRUCTION (88) Scleroderma Code(s): M34.9 - SYSTEMIC SCLEROSIS, UNSPECIFIED (89) Scleroderma progressive Code(s): M34.0 - PROGRESSIVE SYSTEMIC SCLEROSIS (90) Sepsis Code(s): A41.9 - SEPSIS, UNSPECIFIED ORGANISM (91) Severe sepsis Code(s): A41.9 - SEPSIS, UNSPECIFIED ORGANISM R65.20 - SEVERE SEPSIS WITHOUT SEPTIC SHOCK (92) Skin rash Code(s): R21 - RASH AND OTHER NONSPECIFIC SKIN ERUPTION (93) Small bowel obstruction Code(s): K56.69 - OTHER INTESTINAL OBSTRUCTION (94) Transfusion of blood during current hospitalization Code(s): FTM6285 - (95) Valvular heart disease Code(s): I38 - ENDOCARDITIS, VALVE UNSPECIFIED (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 Normal coronaries on cardiac cath and EF 65% with mild AI, trace [place] [facility] [place], HLD, asthma, scleroderma, gastroparesis, Raynauds, CREST syndrome, hypothyroidism, and chronic aspiration PNA with drug resistance admitted with diarrhea prolonged QT, hypokalemia Plan supplement K f/u QTC cardiac stallworth stable cont telemetry
--- NOTE | 2017-03-17 16:48 | CONSULT ---
Consult Consult Specialty:: Nephrology ( [facility]/ [facility]) Referred by:: Dr. Gonzalez Reason for Consultation:: Hypokalemia - History of Present Illness Chief Complaint: The patient is a 52 year old female, with a significant past medical history of Scleroderma, CREST syndrome, finger amputation, COPD, CHF, narcotic abuse, asthma,gastroparesis, Raynauds, hypothyroidism, and chronic aspiration PNA with drug resistance, who presents to the emergency department with a few episodes of vomiting. 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 Normal coronaries on cardiac cath and EF 65% with mild AI, trace MR and TR on echo @ [facility] [place] 03/[place]) Pulmonary: Yes: Asthma, COPD, Pneumonia, Other (lung mass of undetermined etiology) Gastrointestinal: Yes: Constipation, Diverticulitis, Diverticulosis (small bowel diverticular perforation, scleroderma affecting the esophagus, Bonner's esophagus, Schatzki ring,, antral ulcer, gastroparesis related to scleroderma), GERD (with long segment Bonner's esophagus and patent Schatzki ring), Peptic Ulcer Disease (antral ulcer ), Other (Bonner's esophagus, GERD, Schatzki ring, perforation of small bowel diverticulum, antral ulcer, scleroderma causing esophageal dysmotility and gastroparesis, GERD with long segment Bonner's esophagus,Schatzki ring,GAVE syndrome) Renal/: Yes: Renal Failure Infectious Disease: Yes: MRSA (bursitis) Psych: Yes: Addictions (marijuana,tobacco and prescription narcotics) Musculoskeletal: Yes: Chronic low back pain, Other (has spinal stimulator) Rheumatology: Yes: Vasculitis, Other (Scleroderma, Raynauds and CREST syndrome) Endocrine: Yes: Hypothyroidism, Other (Malnutrition, osteoporosis) Dermatology: Yes: Cellulitis - Past Surgical History Past Surgical History: Yes: Appendectomy, Colonoscopy, Upper Endoscopy Additional Surgical History: Laparoscopy - Alcohol/Substance Use Hx Alcohol Use: No History of Substance Use: reports: Marijuana, Prescription - Smoking History Smoking history: Former smoker Have you smoked in the past 12 months: Yes Aproximately how many cigarettes per day: 10 If you are a former smoker, when did you quit?: 4 years ago - Social History Usual Living Arrangement: With Parent ADL: Independent Occupation: disabled History of Recent Travel: No Home Medications - Allergies Allergies/Adverse Reactions: Allergies Allergy/AdvReac Type Severity Reaction Status Date / Time Penicillins Allergy Severe Hives Verified 03/16/17 10:22 tomato AdvReac Uncoded 03/16/17 10:22 - Home Medications Home Medications: Ambulatory Orders Duloxetine HCl [Cymbalta -] 60 mg PO DAILY #30 capsule. 03/10/15 Albuterol 0.083% Nebulizer Cinthya [Ventolin 0.083% Nebulizer Soln -] 1 amp NEB Q4H PRN #1 amp 04/11/16 Aspirin [ASA -] 81 mg PO DAILY tab.chew 04/11/16 Budesonide/Formeterol Fumarate [SYMBICORT 80/4.5mcg -] 2 puff IH BID #1 inhaler 04/11/16 Ranitidine [Zantac -] 150 mg PO DAILY 05/27/16 Gabapentin [Neurontin -] 800 mg PO TID capsule 05/28/16 Aclidinium [place] [Tudorza -] 1 puff IH DAILY inhaler 07/20/16 Lactobacillus Acidophilus [Bacid -] 1 each PO DAILY #30 capsule 07/20/16 Metoclopramide HCl [Reglan -] 10 mg PO ACHS tablet 07/20/16 Acetaminophen [Tylenol .Regular Strength -] 650 mg PO Q6H PRN #0 tablet Hydroxychloroquine So4 [Plaquenil -] 200 mg PO BID tablet 07/31/16 Pantoprazole Sodium [Protonix -] 40 mg PO BID tablet.ec 07/31/16 Cyclobenzaprine HCl [Flexeril -] 5 mg PO BID PRN #20 tablet 09/16/16 Lidocaine 5% Patch [Lidoderm -] 2 patch TP DAILY #60 patch 09/16/16 Albuterol 2.5/Ipratropium 0.5 [Duoneb -] 1 amp NEB BID amp 12/17/16 Multivitamins [Multivit ([facility] Formulary)] 1 tab PO DAILY tab 12/17/16 Magnesium Oxide [Mag-Ox -] 400 mg PO BID #30 tablet MDD 2 12/18/16 Potassium Chloride [K-Dur -] 20 meq PO DAILY #30 tab 12/18/16 Bisacodyl Suppository [Dulcolax Suppository -] 10 mg RC DAILY PRN #0 supp.rect 01/01/17 Metronidazole [Flagyl -] 500 mg PO TID #15 tablet 01/01/17 Family Disease History - Family Disease History Family Disease History: Diabetes: Father (HCV), Heart Disease: Father, Mother, Other: Father, Brother (HIV) Review of Systems - Review of Systems Constitutional: reports: Weakness Eyes: denies: Blurred Vision HENT: denies: Difficult Swallowing Neck: reports: No Symptoms. denies: Stiffness Cardiovascular: denies: Chest Pain, Edema, Palpitations, Shortness of Breath Respiratory: denies: Cough Gastrointestinal: reports: Bloating, Vomiting Genitourinary: denies: Burning Musculoskeletal: denies: Back Pain Integumentary: reports: Other (multiple fingers are amputated bilaterally) Endocrine: denies: Excessive Sweating Physical Exam Vital Signs: Vital Signs Temperature 97.4 F L 03/17/17 14:06 Pulse Rate 77 03/17/17 14:06 Respiratory Rate 20 03/17/17 14:06 Blood Pressure 83/53 03/17/17 14:06 O2 Sat by Pulse Oximetry (%) 100 03/17/17 06:35 Constitutional: Yes: Anxious, Mild Distress Eyes: Yes: Conjunctiva Clear HENT: Yes: Atraumatic Cardiovascular: Yes: Regular Rate and Rhythm, S1, S2, S3 Respiratory: Yes: CTA Bilaterally, Diminished Gastrointestinal: Yes: Normal Bowel Sounds. No: Melena Renal/: No: Bladder Distention, CVA Tenderness - Left, CVA Tenderness - Right Edema: No Labs: CBC, BMP 03/17/17 05:35 03/17/17 05:35 Problem List - Problems (1) Hypokalemia Code(s): E87.6 - HYPOKALEMIA (2) Vomiting Code(s): R11.10 - VOMITING, UNSPECIFIED (3) Abdominal distention Code(s): R14.0 - ABDOMINAL DISTENSION (GASEOUS) (4) Abdominal pain Code(s): R10.9 - UNSPECIFIED ABDOMINAL PAIN (5) Acute renal failure Code(s): N17.9 - ACUTE KIDNEY FAILURE, UNSPECIFIED Qualifiers: Acute renal failure type: unspecified Qualified Code(s): N17.9 - Acute kidney failure, unspecified (6) Anemia Code(s): D64.9 - ANEMIA, UNSPECIFIED Qualifiers: Anemia type: iron deficiency Iron deficiency anemia type: unspecified iron deficiency Qualified Code(s): D50.9 - Iron deficiency anemia, unspecified (7) CREST syndrome Code(s): M34.1 - CR(E)ST SYNDROME (8) Chronic back pain Code(s): M54.9 - DORSALGIA, UNSPECIFIED G89.29 - OTHER CHRONIC PAIN Assessment/Plan Profound Hypokalemia, in the setting of severe vomiting. The gastric juice does not contain much K, but the multiple episodes of vomiting causes metabolic alkalosis ( NOTE PROFOUNDLY ELEVATED SERUM BICARB ON ADMISSION). The Alkalemia causes the Serum K to shift into the cells, and thus cause Hypokalemia. Also the volume contraction that is associated with vomiting causes Renin/ Ramon secretion, causing Kaliuresis, and Hypokalemia. The Ruba on admission, with elevated BUN/ Cr was due to renal hypoperfusion and ischemia, and thus causing a Prerenal syndrome. Corrected by IV fluids. SUGGEST: The patient will require more KCL supplements. Will check serum Mg. Monitor the Electrolytes with you. Thanks again. Michelle Washington MD
[2017-03-17] MEDS: SODIUM CHLORIDE 1,000 ML with POTASSIUM CHLORIDE 20 MEQ IVPB SCH (17:00)
[2017-03-17] MEDS: KCL 10 MEQ IVPB 100 ML IVPB SCH ×2 (17:22→22:56)
[2017-03-18] MEDS: KCL 10 MEQ IVPB 100 ML IVPB SCH
[2017-03-18 07:25] LABS: MCH 27.7 pg (25.7-33.7); MCHC 32.2 g/dl (32.0-36.0); MEAN CELL VOLUME 85.9 fl (80-96); MEAN PLT VOLUME 9.2 fl (7.5-11.1); PLATELET COUNT 288 K/MM3 (134-434); RDW 18.2 % (11.6-15.6); WHITE BLOOD COUNT 6.7 K/mm3 (4.0-10.0)
[2017-03-18 07:52] LABS: ALK PHOS 30 U/L (45-117); ANION GAP 9 (8-16); BILIRUBIN,TOTAL 0.2 mg/dL (0.2-1.0); CALCIUM 8.1 mg/dL (8.5-10.1); CO2 28 mmol/L (21-32); CREATININE 0.5 mg/dL (0.55-1.02); GLUCOSE,RANDOM 71 mg/dL (74-106); MAGNESIUM 1.6 mg/dL (1.8-2.4); PHOSPHOROUS 1.8 mg/dL (2.5-4.9); SGOT/AST 17 U/L (15-37); SGPT/ALT 18 U/L (12-78); TOT PROT 5.4 g/dl (6.4-8.2); URIC ACID 7.6 mg/dL (2.6-7.2)
[2017-03-18] MEDS: PANTOPRAZOLE SODIUM 100 ML IVPB SCH (09:58)
[2017-03-18] MEDS: POTASSIUM CHLORIDE ORAL LIQUID 20 MEQ/15 ML PO SCH (09:58)
--- NOTE | 2017-03-18 11:55 | PN ---
Progress Note, Physician Chief Complaint: The patient in bed. On clear liquids. " I want real food" . No chest pain, No shortness of breath. No urinary complaints. No head aches, No vomiting. - Current Medication List Current Medications: Active Medications Potassium Chloride 20 meq/ (Sodium Chloride) 1,010 mls @ 75 mls/hr IVPB ASDIR [facility] Last Admin: 03/17/17 17:00 Dose: 75 mls/hr Pantoprazole Sodium (Protonix 40mg Ivpb (Pre-Docked)) 100 mls @ 200 mls/hr IVPB DAILY [facility] Last Admin: 03/18/17 09:58 Dose: 200 mls/hr Sodium Phosphate 15 mm/ (Dextrose) 255 mls @ 62.5 mls/hr IVPB ONCE ONE Stop: 03/18/17 15:51 - Objective Vital Signs: Vital Signs Temperature 98.3 F 03/18/17 06:00 Pulse Rate 59 L 03/18/17 06:00 Respiratory Rate 17 03/18/17 06:00 Blood Pressure 96/66 03/18/17 06:00 O2 Sat by Pulse Oximetry (%) 96 03/18/17 06:00 Constitutional: Yes: Anxious Eyes: Yes: Conjunctiva Clear HENT: Yes: Atraumatic Cardiovascular: Yes: Regular Rate and Rhythm, S1, S2 Respiratory: Yes: CTA Bilaterally Gastrointestinal: Yes: Normal Bowel Sounds, Soft Genitourinary: No: CVA Tenderness - Left, CVA Tenderness - Right, Hematuria Musculoskeletal: Yes: Back Pain Labs: CBC, BMP 03/18/17 05:35 03/18/17 05:35 Problem List - Problems (1) Hypokalemia Code(s): E87.6 - HYPOKALEMIA (2) Vomiting Code(s): R11.10 - VOMITING, UNSPECIFIED (3) Abdominal distention Code(s): R14.0 - ABDOMINAL DISTENSION (GASEOUS) (4) Abdominal pain Code(s): R10.9 - UNSPECIFIED ABDOMINAL PAIN (5) Acute renal failure Code(s): N17.9 - ACUTE KIDNEY FAILURE, UNSPECIFIED Qualifiers: Acute renal failure type: unspecified Qualified Code(s): N17.9 - Acute kidney failure, unspecified (6) Anemia Code(s): D64.9 - ANEMIA, UNSPECIFIED Qualifiers: Anemia type: iron deficiency Iron deficiency anemia type: unspecified iron deficiency Qualified Code(s): D50.9 - Iron deficiency anemia, unspecified (7) CREST syndrome Code(s): M34.1 - CR(E)ST SYNDROME (8) Chronic back pain Code(s): M54.9 - DORSALGIA, UNSPECIFIED G89.29 - OTHER CHRONIC PAIN Assessment/Plan 52 y/o female admitted with Vomiting and Hypokalemia. Serum K improved, and is in normal range. Hypophosphatemia, possibly nutritional Will supplement. Renal functions improved t her baseline normal. Will follow. Michelle Washington MD
[2017-03-18] MEDS ORDERED: DEXTROSE 5%-NORMAL SALINE 1,000 ML IV SCH (12:00)
[2017-03-18] MEDS ORDERED: SODIUM PHOSPHATE - 15 MM in DEXTROSE 5%-WATER - 250 ML IVPB ONE (13:00)
--- NOTE | 2017-03-18 14:50 | PN ---
Progress Note, Physician History of Present Illness: The patient is a 52 year old female, with a significant past medical history of COPD, CHF, narcotic abuse, HLD, asthma, scleroderma, gastroparesis, Raynauds, CREST syndrome, hypothyroidism, and chronic aspiration PNA with drug resistance , who presents to the emergency department with a few episodes of diarrhea and brown emesis since last night. She reports her diarrhea is watery and brown. She denies blood per rectum. She reports a couple of episodes of brown, liquid emesis last night and today. She denies abdominal pain. She states she is cold right now. She denies chest pain, shortness of breath, headache and dizziness. She denies fever, and constipation. She denies dysuria, frequency, urgency and hematuria. Allergies: penicillin Past surgical history: abdominal exploratory laparotomy (12/23/16), multiple upper extremity digit amputations, appendectomy, colonoscopy, upper endoscopy, LS/Rods and bone fusions, multiple back Sx PCP - Dr. Eva Gonzalez - Current Medication List Current Medications: Active Medications Pantoprazole Sodium (Protonix 40mg Ivpb (Pre-Docked)) 100 mls @ 200 mls/hr IVPB DAILY [facility] Last Admin: 03/18/17 09:58 Dose: 200 mls/hr Sodium Phosphate 15 mm/ (Dextrose) 255 mls @ 62.5 mls/hr IVPB ONCE ONE Stop: 03/18/17 17:04 Dextrose/Sodium Chloride (D5-Ns -) 1,000 mls @ 75 mls/hr IV ASDIR [facility] - Objective Vital Signs: Vital Signs Temperature 98.3 F 03/18/17 06:00 Pulse Rate 59 L 03/18/17 06:00 Respiratory Rate 17 03/18/17 06:00 Blood Pressure 96/66 03/18/17 06:00 O2 Sat by Pulse Oximetry (%) 96 03/18/17 06:00 Eyes: Yes: WNL, Conjunctiva Clear, EOM Intact HENT: Yes: WNL, Atraumatic, Normocephalic Neck: Yes: WNL, Supple, Trachea Midline Cardiovascular: Yes: WNL, Regular Rate and Rhythm Respiratory: Yes: WNL, Regular, CTA Bilaterally Gastrointestinal: Yes: WNL, Normal Bowel Sounds Genitourinary: Yes: WNL Musculoskeletal: Yes: WNL Extremities: Yes: WNL Edema: No Integumentary: Yes: WNL Neurological: Yes: WNL, Alert, Oriented ...Motor Strength: WNL Psychiatric: Yes: WNL Labs: CBC, BMP 03/18/17 05:35 03/18/17 05:35 Problem List - Problems (1) Diarrhea Code(s): R19.7 - DIARRHEA, UNSPECIFIED (2) Hypokalemia Code(s): E87.6 - HYPOKALEMIA (3) Vomiting Code(s): R11.10 - VOMITING, UNSPECIFIED (4) Abdominal distention Code(s): R14.0 - ABDOMINAL DISTENSION (GASEOUS) (5) Abdominal pain Code(s): R10.9 - UNSPECIFIED ABDOMINAL PAIN (6) Acidosis Code(s): E87.2 - ACIDOSIS (7) Acute renal failure Code(s): N17.9 - ACUTE KIDNEY FAILURE, UNSPECIFIED Qualifiers: Acute renal failure type: unspecified Qualified Code(s): N17.9 - Acute kidney failure, unspecified (8) Acute respiratory failure Code(s): J96.00 - ACUTE RESPIRATORY FAILURE, UNSP W HYPOXIA OR HYPERCAPNIA Qualifiers: Respiratory failure complication: hypercapnia Qualified Code(s): J96.02 - Acute respiratory failure with hypercapnia (9) Altered awareness, transient Code(s): R40.4 - TRANSIENT ALTERATION OF AWARENESS (10) Anemia Code(s): D64.9 - ANEMIA, UNSPECIFIED Qualifiers: Anemia type: iron deficiency Iron deficiency anemia type: unspecified iron deficiency Qualified Code(s): D50.9 - Iron deficiency anemia, unspecified (11) Atelectasis Code(s): J98.11 - ATELECTASIS (12) Bandemia Code(s): D72.825 - BANDEMIA (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 Code(s): K22.70 - BONNER'S ESOPHAGUS WITHOUT DYSPLASIA (14) 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 Code(s): K22.70 - BONNER'S ESOPHAGUS WITHOUT DYSPLASIA (15) Bilateral pneumonia Code(s): J18.9 - PNEUMONIA, UNSPECIFIED ORGANISM Qualifiers: (16) Bursitis Code(s): M71.9 - BURSOPATHY, UNSPECIFIED (17) CHF (congestive heart failure) Code(s): I50.9 - HEART FAILURE, UNSPECIFIED (18) COPD (chronic obstructive pulmonary disease) Code(s): J44.9 - CHRONIC OBSTRUCTIVE PULMONARY DISEASE, UNSPECIFIED (19) COPD exacerbation Code(s): J44.1 - CHRONIC OBSTRUCTIVE PULMONARY DISEASE W (ACUTE) EXACERBATION (20) CREST (calcinosis, Raynaud's phenomenon, esophageal dysfunction, sclerodactyly, telangiectasia) Code(s): M34.1 - CR(E)ST SYNDROME (21) CREST syndrome Code(s): M34.1 - CR(E)ST SYNDROME (22) CREST variant of scleroderma Code(s): M34.1 - CR(E)ST SYNDROME (23) Cellulitis Code(s): L03.90 - CELLULITIS, UNSPECIFIED Qualifiers: Site of cellulitis: extremity Site of cellulitis of extremity: lower extremity Laterality: left Qualified Code(s): L03.116 - Cellulitis of left lower limb (24) Cellulitis of both lower extremities Code(s): L03.115 - CELLULITIS OF RIGHT LOWER LIMB L03.116 - CELLULITIS OF LEFT LOWER LIMB (25) Cellulitis of left foot Code(s): L03.116 - CELLULITIS OF LEFT LOWER LIMB (26) Cellulitis of right foot Code(s): L03.115 - CELLULITIS OF RIGHT LOWER LIMB (27) Chest pain made worse by breathing Code(s): R07.1 - CHEST PAIN ON BREATHING (28) Chronic back pain Code(s): M54.9 - DORSALGIA, UNSPECIFIED G89.29 - OTHER CHRONIC PAIN (29) Chronic back pain greater than 3 months duration Code(s): M54.9 - DORSALGIA, UNSPECIFIED G89.29 - OTHER CHRONIC PAIN (30) Chronic diastolic CHF (congestive heart failure) Code(s): I50.32 - CHRONIC DIASTOLIC (CONGESTIVE) HEART FAILURE (31) Chronic low back pain Code(s): M54.5 - LOW BACK PAIN G89.29 - OTHER CHRONIC PAIN (32) Chronic renal failure Code(s): N18.9 - CHRONIC KIDNEY DISEASE, UNSPECIFIED (33) Chronic use of opiate drugs therapeutic purposes Code(s): Z79.899 - OTHER [employer]ILD[employer] ENGINEER (CURRENT) DRUG THERAPY (34) Cigarette nicotine dependence Code(s): F17.210 - NICOTINE DEPENDENCE, CIGARETTES, UNCOMPLICATED (35) Coffee ground vomiting Code(s): K92.0 - HEMATEMESIS (36) Constipation by delayed colonic transit Code(s): K59.01 - SLOW TRANSIT CONSTIPATION (37) Contact dermatitis Code(s): L25.9 - UNSPECIFIED CONTACT DERMATITIS, UNSPECIFIED CAUSE (38) Coronary artery disease Code(s): I25.10 - ATHSCL HEART DISEASE OF [place] CORONARY ARTERY W/O ANG PCTRS (39) Dark stools Code(s): R19.5 - OTHER FECAL ABNORMALITIES (40) Dehydration Code(s): E86.0 - DEHYDRATION (41) Dermatitis Code(s): L30.9 - DERMATITIS, UNSPECIFIED (42) Diverticulosis of both small and large intestine Code(s): K57.50 - DVRTCLOS OF BOTH SM AND LG INT W/O PERF OR ABSCS W/O BLEED (43) Dysphagia Code(s): R13.10 - DYSPHAGIA, UNSPECIFIED (44) Esophageal dysmotility Code(s): K22.4 - DYSKINESIA OF ESOPHAGUS (45) Fecal incontinence Code(s): R15.9 - FULL INCONTINENCE OF FECES (46) Fever Code(s): R50.9 - FEVER, UNSPECIFIED (47) Fever and chills Code(s): R50.9 - FEVER, UNSPECIFIED (48) Finger infection Code(s): L08.9 - LOCAL INFECTION OF THE SKIN AND SUBCUTANEOUS TISSUE, UNSP (49) [place] cardiac risk >20% in next 10 years Code(s): Z91.89 - OT PERSONAL RISK FACTORS, NOT ELSEWHERE CLASSIFIED (50) GAVE (gastric antral vascular ectasia) Code(s): K31.819 - ANGIODYSPLASIA OF STOMACH AND DUODENUM WITHOUT BLEEDING (51) GERD (gastroesophageal reflux disease) Code(s): K21.9 - GASTRO-ESOPHAGEAL REFLUX DISEASE WITHOUT ESOPHAGITIS (52) Gastric ulcer Code(s): K25.9 - GASTRIC ULCER, UNSP ACUTE OR CHRONIC, W/O HEMOR OR PERF (53) Gastroparesis Code(s): K31.84 - GASTROPARESIS (54) HCAP (healthcare-associated pneumonia) Code(s): J18.9 - PNEUMONIA, UNSPECIFIED ORGANISM (55) Has smoked cigarettes within prior year Code(s): Z87.891 - PERSONAL HISTORY OF NICOTINE DEPENDENCE (56) Hypochloremia Code(s): E87.8 - OTH DISORDERS OF ELECTROLYTE AND FLUID BALANCE, NEC (57) Hypomagnesemia Code(s): E83.42 - HYPOMAGNESEMIA (58) Hyponatremia Code(s): E87.1 - HYPO-OSMOLALITY AND HYPONATREMIA (59) Infected elbow Code(s): L08.9 - LOCAL INFECTION OF THE SKIN AND SUBCUTANEOUS TISSUE, UNSP (60) Injury of head Code(s): S09.90XA - UNSPECIFIED INJURY OF HEAD, INITIAL ENCOUNTER (61) Interstitial lung disease Code(s): J84.9 - INTERSTITIAL PULMONARY DISEASE, UNSPECIFIED (62) Intractable vomiting Code(s): R11.10 - VOMITING, UNSPECIFIED (63) Lactic acidosis Code(s): E87.2 - ACIDOSIS (64) Leukocytosis Code(s): D72.829 - ELEVATED WHITE BLOOD CELL COUNT, UNSPECIFIED (65) Localized rash Code(s): R21 - RASH AND OTHER NONSPECIFIC SKIN ERUPTION (66) Lumbar back pain Code(s): M54.5 - LOW BACK PAIN Qualifiers: Chronicity: chronic (67) Lumbar radicular pain Code(s): M54.16 - RADICULOPATHY, LUMBAR REGION (68) Lumbar radiculopathy, chronic Code(s): M54.16 - RADICULOPATHY, LUMBAR REGION (69) Malnutrition Code(s): E46 - UNSPECIFIED PROTEIN-CALORIE MALNUTRITION (70) Medication requested by patient but not prescribed or administered Code(s): [id number] - (71) Monocytosis Code(s): D72.821 - MONOCYTOSIS (SYMPTOMATIC) (72) Opiate dependence Code(s): F11.20 - OPIOID DEPENDENCE, UNCOMPLICATED (73) Opioid abuse with intoxication Code(s): F11.129 - OPIOID ABUSE WITH INTOXICATION, UNSPECIFIED (74) Opioid dependence, uncomplicated Code(s): F11.20 - OPIOID DEPENDENCE, UNCOMPLICATED (75) Osteomyelitis Code(s): M86.9 - OSTEOMYELITIS, UNSPECIFIED (76) Overdose Code(s): T50.901A - POISONING BY UNSP DRUG/MEDS/BIOL SUBST, ACCIDENTAL, INIT Qualifiers: Encounter type: initial encounter Injury intent: accidental or unintentional Qualified Code(s): T50.901A - Poisoning by unspecified drugs, medicaments and biological substances, accidental (unintentional), initial encounter (77) Pain management Code(s): R52 - PAIN, UNSPECIFIED (78) Partial small bowel obstruction Code(s): K56.69 - OTHER INTESTINAL OBSTRUCTION (79) Penicillin allergy Code(s): Z88.0 - ALLERGY STATUS TO PENICILLIN (80) Pneumonia Code(s): J18.9 - PNEUMONIA, UNSPECIFIED ORGANISM Qualifiers: (81) Pneumonia due to infectious organism Code(s): B99.9 - UNSPECIFIED INFECTIOUS DISEASE J17 - PNEUMONIA IN DISEASES CLASSIFIED ELSEWHERE Qualifiers: Laterality: bilateral Lung location: unspecified part of lung Qualified Code(s): J18.9 - Pneumonia, unspecified organism (82) Pneumoperitoneum Code(s): K66.8 - OTHER SPECIFIED DISORDERS OF PERITONEUM (83) Pseudo-obstruction of intestine Code(s): K59.8 - OTHER SPECIFIED FUNCTIONAL INTESTINAL DISORDERS (84) Raynauds disease Code(s): I73.00 - RAYNAUD'S SYNDROME WITHOUT GANGRENE (85) Renal failure Code(s): N19 - UNSPECIFIED KIDNEY FAILURE (86) Renal insufficiency Code(s): N28.9 - DISORDER OF KIDNEY AND URETER, UNSPECIFIED (87) Schatzki's ring Code(s): K22.2 - ESOPHAGEAL OBSTRUCTION (88) Scleroderma Code(s): M34.9 - SYSTEMIC SCLEROSIS, UNSPECIFIED (89) Scleroderma progressive Code(s): M34.0 - PROGRESSIVE SYSTEMIC SCLEROSIS (90) Sepsis Code(s): A41.9 - SEPSIS, UNSPECIFIED ORGANISM (91) Severe sepsis Code(s): A41.9 - SEPSIS, UNSPECIFIED ORGANISM R65.20 - SEVERE SEPSIS WITHOUT SEPTIC SHOCK (92) Skin rash Code(s): R21 - RASH AND OTHER NONSPECIFIC SKIN ERUPTION (93) Small bowel obstruction Code(s): K56.69 - OTHER INTESTINAL OBSTRUCTION (94) Transfusion of blood during current hospitalization Code(s): [id number] - (95) Valvular heart disease Code(s): I38 - ENDOCARDITIS, VALVE UNSPECIFIED (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 Normal coronaries on cardiac cath and EF 65% with mild AI, trace MR and TR on echo @ [facility] 03/31narcotic abuse, HLD, asthma, scleroderma, gastroparesis, Raynauds, CREST syndrome, hypothyroidism, and chronic aspiration PNA with drug resistance admitted with diarrhea prolonged QT, hypokalemia Plan supplement K f/u QTC cardiac stallworth stable cont telemetry
[2017-03-18] MEDS ORDERED: PT OWN MED DRAWER 7, Y5N ONE (15:16)
--- NOTE | 2017-03-18 15:35 | PN ---
GI Progress Note Subjective: No N/V Tolerated clears and fulls and tells me that she had BM last night and today. No abdominal pain She complains of a sore on her abdominal wall and believes this was the site of a suture - Objective Vital Signs: Vital Signs Temperature 98.3 F 03/18/17 06:00 Pulse Rate 59 L 03/18/17 06:00 Respiratory Rate 17 03/18/17 06:00 Blood Pressure 96/66 03/18/17 06:00 O2 Sat by Pulse Oximetry (%) 96 03/18/17 06:00 Constitutional: Calm Eyes: No: Sclera Icterus Respiratory: Yes: CTA Bilaterally Gastrointestinal Inspection: Yes: Distention ...Auscultate: Yes: Normoactive Bowel Sounds ...Palpate: No: Tenderness ...Percussion: Yes: Tympanitic (Mild) Edema: No Neurological: Yes: Alert, Oriented Labs: CBC, BMP 03/18/17 05:35 03/18/17 05:35 Problem List - Problems (1) Pseudo-obstruction of intestine Assessment/Plan: Clinically improved. No further vomiting Advancing diet Eliminate opiate analgesia through taper as feasible Code(s): K59.8 - OTHER SPECIFIED FUNCTIONAL INTESTINAL DISORDERS
--- NOTE | 2017-03-18 16:08 | PN ---
Progress Note, Physician History of Present Illness: Pt w/o N, V, abd pain, SOB, CP, cg, fever. Pt hab BM today Pt want to eat regular food - Current Medication List Current Medications: Active Medications Sodium Phosphate 15 mm/ (Dextrose) 255 mls @ 62.5 mls/hr IVPB ONCE ONE Stop: 03/18/17 17:04 Dextrose/Sodium Chloride (D5-Ns -) 1,000 mls @ 75 mls/hr IV ASDIR [facility] Pantoprazole Sodium (Protonix -) 20 mg PO DAILY [facility] - Objective Vital Signs: Vital Signs Temperature 98.2 F 03/18/17 14:40 Pulse Rate 82 03/18/17 14:40 Respiratory Rate 16 03/18/17 14:40 Blood Pressure 90/53 03/18/17 14:40 O2 Sat by Pulse Oximetry (%) 96 03/18/17 06:00 Constitutional: Yes: No Distress, Calm Cardiovascular: Yes: Regular Rate and Rhythm, S1, S2 Respiratory: Yes: Regular, Other (coarse BS). No: Rales Gastrointestinal: Yes: Normal Bowel Sounds, Soft. No: Tenderness Edema: No Labs: CBC, BMP 03/18/17 05:35 03/18/17 05:35 Problem List - Problems (1) Diarrhea Code(s): R19.7 - DIARRHEA, UNSPECIFIED (2) Hypokalemia Code(s): E87.6 - HYPOKALEMIA (3) Vomiting Code(s): R11.10 - VOMITING, UNSPECIFIED (4) Hyponatremia Code(s): E87.1 - HYPO-OSMOLALITY AND HYPONATREMIA (5) Opiate dependence Code(s): F11.20 - OPIOID DEPENDENCE, UNCOMPLICATED (6) Acute renal failure Code(s): N17.9 - ACUTE KIDNEY FAILURE, UNSPECIFIED Qualifiers: Acute renal failure type: unspecified Qualified Code(s): N17.9 - Acute kidney failure, unspecified (7) COPD (chronic obstructive pulmonary disease) Code(s): J44.9 - CHRONIC OBSTRUCTIVE PULMONARY DISEASE, UNSPECIFIED (8) CREST (calcinosis, Raynaud's phenomenon, esophageal dysfunction, sclerodactyly, telangiectasia) Code(s): M34.1 - CR(E)ST SYNDROME (9) Chronic back pain Code(s): M54.9 - DORSALGIA, UNSPECIFIED G89.29 - OTHER CHRONIC PAIN Assessment/Plan Admitted to Telemetry Renal consult appreciated Cardio consult appreciated GI consult appreciated- to advance diet IVF DVT proph GI proph AM labs
[2017-03-19 06:19] VITALS: TEMP 98.2
[2017-03-19 08:30] LABS: ALBUMIN 2.2 g/dl (3.4-5.0); ALK PHOS 33 U/L (45-117); ANION GAP 9 (8-16); BILIRUBIN,TOTAL 0.2 mg/dL (0.2-1.0); CALCIUM 7.9 mg/dL (8.5-10.1); CO2 28 mmol/L (21-32); CREATININE 0.6 mg/dL (0.55-1.02); GLUCOSE,RANDOM 78 mg/dL (74-106); MAGNESIUM 1.4 mg/dL (1.8-2.4); PHOSPHOROUS 2.1 mg/dL (2.5-4.9); SGOT/AST 15 U/L (15-37); SGPT/ALT 17 U/L (12-78); TOT PROT 5.6 g/dl (6.4-8.2)
--- NOTE | 2017-03-19 09:53 | PN ---
Progress Note, Physician History of Present Illness: The patient is a 52 year old female, with a significant past medical history of COPD, CHF, narcotic abuse, HLD, asthma, scleroderma, gastroparesis, Raynauds, CREST syndrome, hypothyroidism, and chronic aspiration PNA with drug resistance , who presents to the emergency department with a few episodes of diarrhea and brown emesis since last night. She reports her diarrhea is watery and brown. She denies blood per rectum. She reports a couple of episodes of brown, liquid emesis last night and today. She denies abdominal pain. She states she is cold right now. She denies chest pain, shortness of breath, headache and dizziness. She denies fever, and constipation. She denies dysuria, frequency, urgency and hematuria. Allergies: penicillin Past surgical history: abdominal exploratory laparotomy (12/23/16), multiple upper extremity digit amputations, appendectomy, colonoscopy, upper endoscopy, LS/Rods and bone fusions, multiple back Sx PCP - Dr. Eva Gonzalez - Current Medication List Current Medications: Active Medications Dextrose/Sodium Chloride (D5-Ns -) 1,000 mls @ 75 mls/hr IV ASDIR [facility] Last Admin: 03/18/17 15:00 Dose: 75 mls/hr Pantoprazole Sodium (Protonix -) 20 mg PO DAILY [facility] Last Admin: 03/19/17 09:02 Dose: 20 mg - Objective Vital Signs: Vital Signs Temperature 98.2 F 03/19/17 06:18 Pulse Rate 74 03/19/17 06:18 Respiratory Rate 18 03/19/17 06:18 Blood Pressure 128/80 03/19/17 06:18 O2 Sat by Pulse Oximetry (%) 97 03/18/17 21:00 Eyes: Yes: WNL, Conjunctiva Clear, EOM Intact HENT: Yes: WNL, Atraumatic, Normocephalic Neck: Yes: WNL, Supple, Trachea Midline Cardiovascular: Yes: WNL, Regular Rate and Rhythm Respiratory: Yes: WNL, Regular, CTA Bilaterally Gastrointestinal: Yes: WNL, Normal Bowel Sounds Genitourinary: Yes: WNL Musculoskeletal: Yes: WNL Extremities: Yes: WNL Edema: No Integumentary: Yes: WNL Neurological: Yes: WNL, Alert, Oriented ...Motor Strength: WNL Psychiatric: Yes: WNL Labs: CBC, BMP 03/18/17 05:35 03/19/17 05:48 Problem List - Problems (1) Diarrhea Code(s): R19.7 - DIARRHEA, UNSPECIFIED (2) Hypokalemia Code(s): E87.6 - HYPOKALEMIA (3) Vomiting Code(s): R11.10 - VOMITING, UNSPECIFIED (4) Abdominal distention Code(s): R14.0 - ABDOMINAL DISTENSION (GASEOUS) (5) Abdominal pain Code(s): R10.9 - UNSPECIFIED ABDOMINAL PAIN (6) Acidosis Code(s): E87.2 - ACIDOSIS (7) Acute renal failure Code(s): N17.9 - ACUTE KIDNEY FAILURE, UNSPECIFIED Qualifiers: Acute renal failure type: unspecified Qualified Code(s): N17.9 - Acute kidney failure, unspecified (8) Acute respiratory failure Code(s): J96.00 - ACUTE RESPIRATORY FAILURE, UNSP W HYPOXIA OR HYPERCAPNIA Qualifiers: Respiratory failure complication: hypercapnia Qualified Code(s): J96.02 - Acute respiratory failure with hypercapnia (9) Altered awareness, transient Code(s): R40.4 - TRANSIENT ALTERATION OF AWARENESS (10) Anemia Code(s): D64.9 - ANEMIA, UNSPECIFIED Qualifiers: Anemia type: iron deficiency Iron deficiency anemia type: unspecified iron deficiency Qualified Code(s): D50.9 - Iron deficiency anemia, unspecified (11) Atelectasis Code(s): J98.11 - ATELECTASIS (12) Bandemia Code(s): D72.825 - BANDEMIA (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 Code(s): K22.70 - BONNER'S ESOPHAGUS WITHOUT DYSPLASIA (14) 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 Code(s): K22.70 - BONNER'S ESOPHAGUS WITHOUT DYSPLASIA (15) Bilateral pneumonia Code(s): J18.9 - PNEUMONIA, UNSPECIFIED ORGANISM Qualifiers: (16) Bursitis Code(s): M71.9 - BURSOPATHY, UNSPECIFIED (17) CHF (congestive heart failure) Code(s): I50.9 - HEART FAILURE, UNSPECIFIED (18) COPD (chronic obstructive pulmonary disease) Code(s): J44.9 - CHRONIC OBSTRUCTIVE PULMONARY DISEASE, UNSPECIFIED (19) COPD exacerbation Code(s): J44.1 - CHRONIC OBSTRUCTIVE PULMONARY DISEASE W (ACUTE) EXACERBATION (20) CREST (calcinosis, Raynaud's phenomenon, esophageal dysfunction, sclerodactyly, telangiectasia) Code(s): M34.1 - CR(E)ST SYNDROME (21) CREST syndrome Code(s): M34.1 - CR(E)ST SYNDROME (22) CREST variant of scleroderma Code(s): M34.1 - CR(E)ST SYNDROME (23) Cellulitis Code(s): L03.90 - CELLULITIS, UNSPECIFIED Qualifiers: Site of cellulitis: extremity Site of cellulitis of extremity: lower extremity Laterality: left Qualified Code(s): L03.116 - Cellulitis of left lower limb (24) Cellulitis of both lower extremities Code(s): L03.115 - CELLULITIS OF RIGHT LOWER LIMB L03.116 - CELLULITIS OF LEFT LOWER LIMB (25) Cellulitis of left foot Code(s): L03.116 - CELLULITIS OF LEFT LOWER LIMB (26) Cellulitis of right foot Code(s): L03.115 - CELLULITIS OF RIGHT LOWER LIMB (27) Chest pain made worse by breathing Code(s): R07.1 - CHEST PAIN ON BREATHING (28) Chronic back pain Code(s): M54.9 - DORSALGIA, UNSPECIFIED G89.29 - OTHER CHRONIC PAIN (29) Chronic back pain greater than 3 months duration Code(s): M54.9 - DORSALGIA, UNSPECIFIED G89.29 - OTHER CHRONIC PAIN (30) Chronic diastolic CHF (congestive heart failure) Code(s): I50.32 - CHRONIC DIASTOLIC (CONGESTIVE) HEART FAILURE (31) Chronic low back pain Code(s): M54.5 - LOW BACK PAIN G89.29 - OTHER CHRONIC PAIN (32) Chronic renal failure Code(s): N18.9 - CHRONIC KIDNEY DISEASE, UNSPECIFIED (33) Chronic use of opiate drugs therapeutic purposes Code(s): Z79.899 - OTHER MANIFEST CLERK (CURRENT) DRUG THERAPY (34) Cigarette nicotine dependence Code(s): F17.210 - NICOTINE DEPENDENCE, CIGARETTES, UNCOMPLICATED (35) Coffee ground vomiting Code(s): K92.0 - HEMATEMESIS (36) Constipation by delayed colonic transit Code(s): K59.01 - SLOW TRANSIT CONSTIPATION (37) Contact dermatitis Code(s): L25.9 - UNSPECIFIED CONTACT DERMATITIS, UNSPECIFIED CAUSE (38) Coronary artery disease Code(s): I25.10 - ATHSCL HEART DISEASE OF [place] CORONARY ARTERY W/O ANG PCTRS (39) Dark stools Code(s): R19.5 - OTHER FECAL ABNORMALITIES (40) Dehydration Code(s): E86.0 - DEHYDRATION (41) Dermatitis Code(s): L30.9 - DERMATITIS, UNSPECIFIED (42) Diverticulosis of both small and large intestine Code(s): K57.50 - DVRTCLOS OF BOTH SM AND LG INT W/O PERF OR ABSCS W/O BLEED (43) Dysphagia Code(s): R13.10 - DYSPHAGIA, UNSPECIFIED (44) Esophageal dysmotility Code(s): K22.4 - DYSKINESIA OF ESOPHAGUS (45) Fecal incontinence Code(s): R15.9 - FULL INCONTINENCE OF FECES (46) Fever Code(s): R50.9 - FEVER, UNSPECIFIED (47) Fever and chills Code(s): R50.9 - FEVER, UNSPECIFIED (48) Finger infection Code(s): L08.9 - LOCAL INFECTION OF THE SKIN AND SUBCUTANEOUS TISSUE, UNSP (49) [place] cardiac risk >20% in next 10 years Code(s): Z91.89 - OTH PERSONAL RISK FACTORS, NOT ELSEWHERE CLASSIFIED (50) GAVE (gastric antral vascular ectasia) Code(s): K31.819 - ANGIODYSPLASIA OF STOMACH AND DUODENUM WITHOUT BLEEDING (51) GERD (gastroesophageal reflux disease) Code(s): K21.9 - GASTRO-ESOPHAGEAL REFLUX DISEASE WITHOUT ESOPHAGITIS (52) Gastric ulcer Code(s): K25.9 - GASTRIC ULCER, UNSP ACUTE OR CHRONIC, W/O HEMOR OR PERF (53) Gastroparesis Code(s): K31.84 - GASTROPARESIS (54) HCAP (healthcare-associated pneumonia) Code(s): J18.9 - PNEUMONIA, UNSPECIFIED ORGANISM (55) Has smoked cigarettes within prior year Code(s): Z87.891 - PERSONAL HISTORY OF NICOTINE DEPENDENCE (56) Hypochloremia Code(s): E87.8 - OTH DISORDERS OF ELECTROLYTE AND FLUID BALANCE, NEC (57) Hypomagnesemia Code(s): E83.42 - HYPOMAGNESEMIA (58) Hyponatremia Code(s): E87.1 - HYPO-OSMOLALITY AND HYPONATREMIA (59) Infected elbow Code(s): L08.9 - LOCAL INFECTION OF THE SKIN AND SUBCUTANEOUS TISSUE, UNSP (60) Injury of head Code(s): S09.90XA - UNSPECIFIED INJURY OF HEAD, INITIAL ENCOUNTER (61) Interstitial lung disease Code(s): J84.9 - INTERSTITIAL PULMONARY DISEASE, UNSPECIFIED (62) Intractable vomiting Code(s): R11.10 - VOMITING, UNSPECIFIED (63) Lactic acidosis Code(s): E87.2 - ACIDOSIS (64) Leukocytosis Code(s): D72.829 - ELEVATED WHITE BLOOD CELL COUNT, UNSPECIFIED (65) Localized rash Code(s): R21 - RASH AND OTHER NONSPECIFIC SKIN ERUPTION (66) Lumbar back pain Code(s): M54.5 - LOW BACK PAIN Qualifiers: Chronicity: chronic (67) Lumbar radicular pain Code(s): M54.16 - RADICULOPATHY, LUMBAR REGION (68) Lumbar radiculopathy, chronic Code(s): M54.16 - RADICULOPATHY, LUMBAR REGION (69) Malnutrition Code(s): E46 - UNSPECIFIED PROTEIN-CALORIE MALNUTRITION (70) Medication requested by patient but not prescribed or administered Code(s): BAS6252 - (71) Monocytosis Code(s): D72.821 - MONOCYTOSIS (SYMPTOMATIC) (72) Opiate dependence Code(s): F11.20 - OPIOID DEPENDENCE, UNCOMPLICATED (73) Opioid abuse with intoxication Code(s): F11.129 - OPIOID ABUSE WITH INTOXICATION, UNSPECIFIED (74) Opioid dependence, uncomplicated Code(s): F11.20 - OPIOID DEPENDENCE, UNCOMPLICATED (75) Osteomyelitis Code(s): M86.9 - OSTEOMYELITIS, UNSPECIFIED (76) Overdose Code(s): T50.901A - POISONING BY [facility] DRUG/MEDS/BIOL SUBST, ACCIDENTAL, INIT Qualifiers: Encounter type: initial encounter Injury intent: accidental or unintentional Qualified Code(s): T50.901A - Poisoning by unspecified drugs, medicaments and biological substances, accidental (unintentional), initial encounter (77) Pain management Code(s): R52 - PAIN, UNSPECIFIED (78) Partial small bowel obstruction Code(s): K56.69 - OTHER INTESTINAL OBSTRUCTION (79) Penicillin allergy Code(s): Z88.0 - ALLERGY STATUS TO PENICILLIN (80) Pneumonia Code(s): J18.9 - PNEUMONIA, UNSPECIFIED ORGANISM Qualifiers: (81) Pneumonia due to infectious organism Code(s): B99.9 - UNSPECIFIED INFECTIOUS DISEASE J17 - PNEUMONIA IN DISEASES CLASSIFIED ELSEWHERE Qualifiers: Laterality: bilateral Lung location: unspecified part of lung Qualified Code(s): J18.9 - Pneumonia, unspecified organism (82) Pneumoperitoneum Code(s): K66.8 - OTHER SPECIFIED DISORDERS OF PERITONEUM (83) Pseudo-obstruction of intestine Code(s): K59.8 - OTHER SPECIFIED FUNCTIONAL INTESTINAL DISORDERS (84) Raynauds disease Code(s): I73.00 - RAYNAUD'S SYNDROME WITHOUT GANGRENE (85) Renal failure Code(s): N19 - UNSPECIFIED KIDNEY FAILURE (86) Renal insufficiency Code(s): N28.9 - DISORDER OF KIDNEY AND URETER, UNSPECIFIED (87) Schatzki's ring Code(s): K22.2 - ESOPHAGEAL OBSTRUCTION (88) Scleroderma Code(s): M34.9 - SYSTEMIC SCLEROSIS, UNSPECIFIED (89) Scleroderma progressive Code(s): M34.0 - PROGRESSIVE SYSTEMIC SCLEROSIS (90) Sepsis Code(s): A41.9 - SEPSIS, UNSPECIFIED ORGANISM (91) Severe sepsis Code(s): A41.9 - SEPSIS, UNSPECIFIED ORGANISM R65.20 - SEVERE SEPSIS WITHOUT SEPTIC SHOCK (92) Skin rash Code(s): R21 - RASH AND OTHER NONSPECIFIC SKIN ERUPTION (93) Small bowel obstruction Code(s): K56.69 - OTHER INTESTINAL OBSTRUCTION (94) Transfusion of blood during current hospitalization Code(s): SAZ3422 - (95) Valvular heart disease Code(s): I38 - ENDOCARDITIS, VALVE UNSPECIFIED (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 Normal coronaries on cardiac cath and EF 65% with mild AI, trace MR and TR on echo @ [facility] 03/31narcotic abuse, HLD, asthma, scleroderma, gastroparesis, Raynauds, CREST syndrome, hypothyroidism, and chronic aspiration PNA with drug resistance admitted with diarrhea prolonged QT, hypokalemia Plan cardiac stallworth stable cont telemetry
[2017-03-19] MEDS ORDERED: PANTOPRAZOLE 20 MG TABLET (FP) PO SCH (10:00)
[2017-03-19] MEDS ORDERED: MAGNESIUM SULF 50% (8.12 MEQ/2 ML-1 GM VIAL) IVPB ONE (11:00)
--- NOTE | 2017-03-19 11:26 | PN ---
Progress Note, Physician History of Present Illness: Pt w/o N, V, abd pain, SOB, CP, cg, fever. Pt hab BM today Pt eating regular food, no N, V. - Current Medication List Current Medications: Active Medications Dextrose/Sodium Chloride (D5-Ns -) 1,000 mls @ 75 mls/hr IV ASDIR [facility] Last Admin: 03/18/17 15:00 Dose: 75 mls/hr Potassium Phosphate 30 mm/ (Sodium Chloride) 260 mls @ 62.5 mls/hr IVPB ONCE ONE Stop: 03/19/17 15:05 Pantoprazole Sodium (Protonix -) 20 mg PO DAILY [facility] Last Admin: 03/19/17 09:02 Dose: 20 mg - Objective Vital Signs: Vital Signs Temperature 98.2 F 03/19/17 06:18 Pulse Rate 74 03/19/17 06:18 Respiratory Rate 18 03/19/17 06:18 Blood Pressure 128/80 03/19/17 06:18 O2 Sat by Pulse Oximetry (%) 97 03/18/17 21:00 Constitutional: Yes: No Distress, Calm, Cachectic Cardiovascular: Yes: Regular Rate and Rhythm, S1, S2 Respiratory: Yes: Regular, Other (coarse bilat.) Gastrointestinal: Yes: Normal Bowel Sounds, Soft. No: Tenderness Edema: No Neurological: Yes: Alert, Oriented Labs: CBC, BMP 03/18/17 05:35 03/19/17 05:48 Problem List - Problems (1) Hypokalemia Code(s): E87.6 - HYPOKALEMIA (2) Hypophosphatemia Code(s): E83.39 - OTHER DISORDERS OF PHOSPHORUS METABOLISM (3) Diarrhea Code(s): R19.7 - DIARRHEA, UNSPECIFIED (4) Vomiting Code(s): R11.10 - VOMITING, UNSPECIFIED (5) Hyponatremia Code(s): E87.1 - HYPO-OSMOLALITY AND HYPONATREMIA (6) Opiate dependence Code(s): F11.20 - OPIOID DEPENDENCE, UNCOMPLICATED (7) Acute renal failure Code(s): N17.9 - ACUTE KIDNEY FAILURE, UNSPECIFIED Qualifiers: Acute renal failure type: unspecified Qualified Code(s): N17.9 - Acute kidney failure, unspecified (8) COPD (chronic obstructive pulmonary disease) Code(s): J44.9 - CHRONIC OBSTRUCTIVE PULMONARY DISEASE, UNSPECIFIED (9) CREST (calcinosis, Raynaud's phenomenon, esophageal dysfunction, sclerodactyly, telangiectasia) Code(s): M34.1 - CR(E)ST SYNDROME (10) Chronic back pain Code(s): M54.9 - DORSALGIA, UNSPECIFIED G89.29 - OTHER CHRONIC PAIN (11) Severe protein-calorie malnutrition Code(s): E43 - UNSPECIFIED SEVERE PROTEIN-CALORIE MALNUTRITION Assessment/Plan Admitted to Telemetry Renal consult appreciated Cardio consult appreciated GI consult appreciated- to advance diet IVF DVT proph GI proph To give Mg, Ph IV AM labs
[2017-03-19] MEDS ORDERED: SODIUM PHOSPHATE - 30 MM in SODIUM CHLORIDE 250 ML IVPB ONE (12:00)
[2017-03-19 12:43] LABS: BASOPHIL 0.6 % (0-2.0); EOSINOPHIL 4.3 % (0-4.5); MCH 27.5 pg (25.7-33.7); MEAN CELL VOLUME 85.9 fl (80-96); MEAN PLT VOLUME 8.2 fl (7.5-11.1); NEUTROPHILS 62.2 % (42.8-82.8); PLATELET COUNT 340 K/MM3 (134-434); RDW 18.3 % (11.6-15.6); WHITE BLOOD COUNT 5.9 K/mm3 (4.0-10.0)
[2017-03-19 16:11] VITALS: BP 117/77; PULSE 98
[2017-03-21 16:25] LABS: CALCIUM 8.1 mg/dL (8.7-10.2)
== END 2017-03-19 16:19 | disposition left against medical advice (07) | DRG 682 ==
LOC: JER 10:08 → JERBED 15:19 → J4W 16:43
PROVIDERS: ADMIT Specialist; ATTEND Specialist
DX: N17.9 Acute kidney failure, unspecified (principal); E43 Unspecified severe protein-calorie malnutrition; F11.20 Opioid dependence, uncomplicated; E87.1 Hypo-osmolality and hyponatremia; E87.6 Hypokalemia; M34.1 CR(E)ST syndrome; M54.9 Dorsalgia, unspecified; G89.29 Other chronic pain; E83.39 Other disorders of phosphorus metabolism; J44.9 Chronic obstructive pulmonary disease, unspecified; E03.9 Hypothyroidism, unspecified; R19.7 Diarrhea, unspecified; M34.9 Systemic sclerosis, unspecified; K31.84 Gastroparesis; K21.9 Gastro-esophageal reflux disease without esophagitis; K22.70 Barrett's esophagus without dysplasia; D50.9 Iron deficiency anemia, unspecified; R11.2 Nausea with vomiting, unspecified; Z98.1 Arthrodesis status; Z89.022 Acquired absence of left finger(s); Z89.021 Acquired absence of right finger(s); K59.8 Other specified functional intestinal disorders; K59.04 Chronic idiopathic constipation
CPT/HCPCS: 36415; 71010-TC; 74000-TC; 74176-TC; 80053; 80307; 81003; 81015; 82310; 83605; 83690; 83735; 83970; 84100; 84550; 85025; 85027; 93005; 93010; 99284-25

== ENCOUNTER 2017-03-26 12:15 | Inpatient (IN) | payer OTHER ==
--- NOTE | 2017-03-26 13:36 | PDOC ---
History of Present Illness - General Chief Complaint: Nausea/Vomiting Stated Complaint: VOMITING, LEG PAIN Time Seen by Provider: 03/26/17 13:05 History Source: Patient Exam Limitations: No Limitations - History of Present Illness Initial Comments: 03/26/17 13:33 52yr old with pmh of scleroderma presents with 8-9 episodes of vomiting the past couple days, in addition to falls 2ndary to weakness todays Past History - Past Medical History Allergies/Adverse Reactions: Allergies Allergy/AdvReac Type Severity Reaction Status Date / Time Penicillins Allergy Severe Hives Verified 03/26/17 12:18 tomato AdvReac Uncoded 03/26/17 12:18 Home Medications: Ambulatory Orders Duloxetine HCl [Cymbalta -] 60 mg PO DAILY #30 capsule. 03/10/15 Albuterol 0.083% Nebulizer Cinthya [Ventolin 0.083% Nebulizer Soln -] 1 amp NEB Q4H PRN #1 amp 04/11/16 Aspirin [ASA -] 81 mg PO DAILY tab.chew 04/11/16 Budesonide/Formeterol Fumarate [SYMBICORT 80/4.5mcg -] 2 puff IH BID #1 inhaler 04/11/16 Ranitidine [Zantac -] 150 mg PO DAILY 05/27/16 Gabapentin [Neurontin -] 800 mg PO TID capsule 05/28/16 Aclidinium [place] [Tudorza -] 1 puff IH DAILY inhaler 07/20/16 Lactobacillus Acidophilus [Bacid -] 1 each PO DAILY #30 capsule 07/20/16 Metoclopramide HCl [Reglan -] 10 mg PO ACHS tablet 07/20/16 Acetaminophen [Tylenol .Regular Strength -] 650 mg PO Q6H PRN #0 tablet Hydroxychloroquine So4 [Plaquenil -] 200 mg PO BID tablet 07/31/16 Pantoprazole Sodium [Protonix -] 40 mg PO BID tablet.ec 07/31/16 Cyclobenzaprine HCl [Flexeril -] 5 mg PO BID PRN #20 tablet 09/16/16 Lidocaine 5% Patch [Lidoderm -] 2 patch TP DAILY #60 patch 09/16/16 Albuterol 2.5/Ipratropium 0.5 [Duoneb -] 1 amp NEB BID amp 12/17/16 Multivitamins [Multivit ([facility] Formul[facility])] 1 tab PO DAILY tab 12/17/16 Magnesium Oxide [Mag-Ox -] 400 mg PO BID #30 tablet MDD 2 12/18/16 Potassium Chloride [K-Dur -] 20 meq PO DAILY #30 tab 12/18/16 Bisacodyl Suppository [Dulcolax Suppository -] 10 mg RC DAILY PRN #0 supp.rect 01/01/17 Metronidazole [Flagyl -] 500 mg PO TID #15 tablet 01/01/17 Anemia: Yes Asthma: Yes Cancer: No 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, 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) CVA: No COPD: Yes CHF: No Dementia: No Diabetes: No GI Disorders: Yes (REFLUX, Bonner's Esophagus) Disorders: No HTN: No (low bp) Hypercholesterolemia: Yes Liver Disease: No Seizures: No Thyroid Disease: Yes (HYPO.) Other medical history: scleroderma - Surgical History Abdominal Surgery: Yes (Yes, Exp lapartomy) Appendectomy: Yes Cardiac Surgery: No Cholecystectomy: No Lung Surgery: No Neurologic Surgery: Yes (LS/RODS &BONE FUSIONS) Orthopedic Surgery: Yes (multiple back sx, hand sx,b/o hip) - Immunization History Immunization Up to Date: Yes - Psycho/Social/Smoking Cessation Hx Anxiety: No Suicidal Ideation: No Smoking Status: No Smoking History: Former smoker Have you smoked in the past 12 months: Yes Number of Cigarettes Smoked Daily: 10 If you are a former smoker, when did you quit?: 4 years ago Information on smoking cessation initiated: Yes 'Breaking Loose' booklet given: 03/26/17 Hx Alcohol Use: No Drug/Substance Use Hx: No Substance Use Type: None Hx Substance Use Treatment: Yes *Physical Exam - Vital Signs Last Vital Signs Temp Pulse Resp BP Pulse Ox 97.8 F 85 16 90/67 03/26/17 12:19 03/26/17 12:19 03/26/17 12:19 03/26/17 12:19
[2017-03-26] MEDS ORDERED: SODIUM CHLORIDE 1,000 ML IV STA (13:57)
[2017-03-26] MEDS ORDERED: ONDANSETRON 4 MG/2 ML VIAL IVPUSH ONE (14:02)
[2017-03-26] MEDS ORDERED: methylPREDNISolone NA SUCC 125 MG/2 ML VIAL IVPB ONE ×2 (14:02→14:39)
[2017-03-26] MEDS ORDERED: METOCLOPRAMIDE HCL INJECTION 10 MG/2 ML VIAL IVPUSH ONE (14:02)
--- NOTE | 2017-03-26 14:18 | PDOC ---
Attending Attestation - Resident Resident Name: FloresHong - ED Attending Attestation I have performed the following: I have examined & evaluated the patient, The case was reviewed & discussed with the resident, I agree w/resident's findings & plan, Exceptions are as noted - HPI HPI: 03/26/17 14:15 52y/o F h/o scleroderma p/w typical flare of muscle pains and vomiting for 2 days. recent admission for same from 03/16 - 03/19. complicated by fall today with head injury and knee injury. no aguila/vision change. - Physicial Exam PE: 03/26/17 14:16 VSS alert but vomiting dry mucosa no jaundice/pallor FROM all joints neuro intact - Medical Decision Making 03/26/17 14:17 52y/o F with exacerbation of her scleroderma, complicated by fall today labs, ua ivf rehydration, anti-emetic, pain control ct head possible admission, will d/w Dr. Gonzalez 03/26/17 16:12 Na 119, ARF with Cr 4.2. receiving ivf, ICU consult and admission 03/26/17 16:[address] Gonzalez, who knows the patient well. near identical presentation on prior admission (Cr to 4.6, Na to 121). managed on tele during that admission, requests same. Accepted to inpt tele by Dr. Gonzalez. CBC pending. Agrees with NS rehydration.
[2017-03-26] MEDS ORDERED: METOCLOPRAMIDE HCL INJECTION 10 MG/2 ML VIAL ONE (14:46)
[2017-03-26] MEDS ORDERED: methylPREDNISolone NA SUCC 125 MG/2 ML VIAL ONE (14:46)
[2017-03-26] MEDS ORDERED: ONDANSETRON 4 MG/2 ML VIAL ONE (14:46)
[2017-03-26 15:47] LABS: MAGNESIUM 2.6 mg/dL (1.8-2.4)
[2017-03-26 15:50] LABS: ALBUMIN 3.5 g/dl (3.4-5.0); ANION GAP 25 (8-16); BILIRUBIN,TOTAL 0.3 mg/dL (0.2-1.0); CALCIUM 8.4 mg/dL (8.5-10.1); CO2 39 mmol/L (21-32); CREATININE 4.2 mg/dL (0.55-1.02); GLUCOSE,RANDOM 90 mg/dL (74-106); SGOT/AST 22 U/L (15-37); SGPT/ALT 23 U/L (12-78)
[2017-03-26 15:51] LABS: ALK PHOS 49 U/L (45-117); TOT PROT 8.3 g/dl (6.4-8.2)
[2017-03-26] MEDS ORDERED: SODIUM CHLORIDE 1,000 ML IV ONE (16:11)
[2017-03-26] MEDS ORDERED: SODIUM CHLORIDE 1,000 ML IV SCH (16:45)
[2017-03-26 18:16] VITALS: BMI 17.9
[2017-03-26 18:42] LABS: BASOPHIL 0.3 % (0-2.0); EOSINOPHIL 0.4 % (0-4.5); MCH 26.8 pg (25.7-33.7); MEAN CELL VOLUME 83.8 fl (80-96); NEUTROPHILS 71.3 % (42.8-82.8); PLATELET COUNT 330 K/MM3 (134-434); RDW 18.3 % (11.6-15.6); WHITE BLOOD COUNT 11.8 K/mm3 (4.0-10.0)
[2017-03-26] MEDS ORDERED: ALBUTEROL SO4 0.083% IH SOL 2.5 MG/3 ML VIAL.NEB. NEB PRN (20:34)
[2017-03-26] MEDS ORDERED: POTASSIUM CHLORIDE 10 MEQ in DEXTROSE 5%-NORMAL SALINE 1,000 ML IVPB SCH (20:45)
--- NOTE | 2017-03-26 21:00 | HP ---
Admitting History and Physical - Primary Care Physician PCP: Venkat Gonzalez - Admission Chief Complaint: Fall. Weakness History of Present Illness: Pt came to ER c/o weakness, fall (X2 at home), vomiting (for 4 days); in ER she was found to have low Na, be in ARF. Pt was admitted for futher evaluation and treatment. 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 Normal coronaries on cardiac cath and EF 65% with mild AI, trace MR and TR on echo @ [facility] [place]31) Pulmonary: Yes: Asthma, COPD, Pneumonia, Other (lung mass of undetermined etiology) Gastrointestinal: Yes: Constipation, Diverticulitis, Diverticulosis (small bowel diverticular perforation, scleroderma affecting the esophagus, Bonner's esophagus, Schatzki ring,, antral ulcer, gastroparesis related to scleroderma), GERD (with long segment Bonner's esophagus and patent Schatzki ring), Peptic Ulcer Disease (antral ulcer ), Other (Bonner's esophagus, GERD, Schatzki ring, perforation of small bowel diverticulum, antral ulcer, scleroderma causing esophageal dysmotility and gastroparesis, GERD with long segment Bonner's esophagus,Schatzki ring,GAVE syndrome) Renal/: Yes: Renal Failure Heme/Onc: Yes: Anemia Infectious Disease: Yes: MRSA (bursitis) Psych: Yes: Addictions (marijuana,tobacco and prescription narcotics) Musculoskeletal: Yes: Chronic low back pain, Other (has spinal stimulator) Rheumatology: Yes: Vasculitis, Other (Scleroderma, Raynauds and CREST syndrome) Endocrine: Yes: Hypothyroidism, Other (Malnutrition, osteoporosis) Dermatology: Yes: Cellulitis - Past Surgical History Past Surgical History: Yes: Appendectomy, Colonoscopy, Upper Endoscopy - Smoking History Smoking history: Former smoker Have you smoked in the past 12 months: Yes Aproximately how many cigarettes per day: 10 If you are a former smoker, when did you quit?: 4 years ago - Alcohol/Substance Use Hx Alcohol Use: No History of Substance Use: reports: Marijuana, Prescription - Social History ADL: Independent Occupation: disabled History of Recent Travel: No Home Medications - Allergies Allergies/Adverse Reactions: Allergies Allergy/AdvReac Type Severity Reaction Status Date / Time Penicillins Allergy Severe Hives Verified 03/26/17 12:18 tomato AdvReac Uncoded 03/26/17 12:18 - Home Medications Home Medications: Ambulatory Orders Duloxetine HCl [Cymbalta -] 60 mg PO DAILY #30 capsule. 03/10/15 Albuterol 0.083% Nebulizer Cinthya [Ventolin 0.083% Nebulizer Soln -] 1 amp NEB Q4H PRN #1 amp 04/11/16 Aspirin [ASA -] 81 mg PO DAILY tab.chew 04/11/16 Budesonide/Formeterol Fumarate [SYMBICORT 80/4.5mcg -] 2 puff IH BID #1 inhaler 04/11/16 Ranitidine [Zantac -] 150 mg PO DAILY 05/27/16 Gabapentin [Neurontin -] 800 mg PO TID capsule 05/28/16 Aclidinium [place] [Tudorza -] 1 puff IH DAILY inhaler 07/20/16 Lactobacillus Acidophilus [Bacid -] 1 each PO DAILY #30 capsule 07/20/16 Metoclopramide HCl [Reglan -] 10 mg PO ACHS tablet 07/20/16 Acetaminophen [Tylenol .Regular Strength -] 650 mg PO Q6H PRN #0 tablet Hydroxychloroquine So4 [Plaquenil -] 200 mg PO BID tablet 07/31/16 Pantoprazole Sodium [Protonix -] 40 mg PO BID tablet.ec 07/31/16 Cyclobenzaprine HCl [Flexeril -] 5 mg PO BID PRN #20 tablet 09/16/16 Lidocaine 5% Patch [Lidoderm -] 2 patch TP DAILY #60 patch 09/16/16 Albuterol 2.5/Ipratropium 0.5 [Duoneb -] 1 amp NEB BID amp 12/17/16 Multivitamins [Multivit ([facility] Formulary)] 1 tab PO DAILY tab 12/17/16 Magnesium Oxide [Mag-Ox -] 400 mg PO BID #30 tablet MDD 2 12/18/16 Potassium Chloride [K-Dur -] 20 meq PO DAILY #30 tab 12/18/16 Bisacodyl Suppository [Dulcolax Suppository -] 10 mg RC DAILY PRN #0 supp.rect 01/01/17 Metronidazole [Flagyl -] 500 mg PO TID #15 tablet 01/01/17 Family Disease History - Family Disease History Family Disease History: Diabetes: Father (HCV), Heart Disease: Father, Mother, Other: Father, Brother (HIV) Review of Systems - Review of Systems Constitutional: denies: Chills, Fever Eyes: denies: Blurred Vision, Double Vision HENT: denies: Difficult Swallowing, Ear Discharge, Ear Pain, Throat Pain Cardiovascular: denies: Chest Pain, Edema, Palpitations Respiratory: denies: Cough, SOB Gastrointestinal: reports: Nausea. denies: Abdominal Pain, Diarrhea, Rectal Bleeding, Vomiting (since in ER) Genitourinary: denies: Burning, Discharge, Dysuria Musculoskeletal: denies: Back Pain, Joint Swelling Integumentary: denies: Blister, Bruising, Rash Neurological: reports: Weakness. denies: Change in LOC, Change in Speech, Headache Endocrine: denies: Excessive Sweating, Intolerance to Cold Hematology/Lymphatic: denies: Easily Bruised, Excessive Bleeding Psychiatric: denies: Depression, Hallucinations Physical Examination Vital Signs: Vital Signs Temperature 97.8 F 03/26/17 12:19 Pulse Rate 84 03/26/17 17:50 Respiratory Rate 20 03/26/17 17:50 Blood Pressure 100/66 03/26/17 17:50 O2 Sat by Pulse Oximetry (%) 94 L 03/26/17 16:53 Constitutional: Yes: No Distress, Calm Eyes: Yes: Conjunctiva Clear, EOM Intact, PERRL HENT: Yes: Normocephalic. No: Nasal Congestion Neck: Yes: Trachea Midline. No: Lymphadenopathy Cardiovascular: Yes: Regular Rate and Rhythm, S1, S2 Respiratory: Yes: Regular, CTA Bilaterally, Other (coarse BS bilat) Gastrointestinal: Yes: Normal Bowel Sounds, Soft. No: Tenderness ...Rectal Exam: Yes: Deferred Renal/: No: CVA Tenderness - Left, CVA Tenderness - Right Breast(s): Yes: Other (deferred) Musculoskeletal: No: Back Pain, Joint Swelling Edema: No Integumentary: No: Bruising, Rash Neurological: Yes: Alert, Oriented, Cran Nerves II-XII Intact Psychiatric: Yes: Alert, Oriented (person, place) Labs: reviewed Imaging - Results Chest X-ray: Report Reviewed Cat Scan: Report Reviewed Problem List - Problems (1) Acute renal failure Code(s): N17.9 - ACUTE KIDNEY FAILURE, UNSPECIFIED Qualifiers: Acute renal failure type: unspecified Qualified Code(s): N17.9 - Acute kidney failure, unspecified (2) Hyponatremia Code(s): E87.1 - HYPO-OSMOLALITY AND HYPONATREMIA (3) Scleroderma Code(s): M34.9 - SYSTEMIC SCLEROSIS, UNSPECIFIED (4) Fall Code(s): W19.XXXA - UNSPECIFIED FALL, INITIAL ENCOUNTER (5) CREST (calcinosis, Raynaud's phenomenon, esophageal dysfunction, sclerodactyly, telangiectasia) Code(s): M34.1 - CR(E)ST SYNDROME (6) Opiate dependence Code(s): F11.20 - OPIOID DEPENDENCE, UNCOMPLICATED (7) Opiate abuse, episodic Code(s): F11.10 - OPIOID ABUSE, UNCOMPLICATED (8) Chronic back pain greater than 3 months duration Assessment/Plan: seen by pain management for treatment Code(s): M54.9 - DORSALGIA, UNSPECIFIED G89.29 - OTHER CHRONIC PAIN Assessment/Plan IVF GI and Renal consult AM labs
[2017-03-26] MEDS ORDERED: PANTOPRAZOLE SODIUM 40 MG in SODIUM CHLORIDE 100 ML IVPB SCH (22:00)
[2017-03-26] MEDS: SODIUM CHLORIDE 1,000 ML IV SCH (23:03)
[2017-03-26] MEDS: ALBUTEROL SO4 2.5/IPRATROPIUM 0.5 INH SOL 3 ML VIAL.NEB. NEB SCH (23:04)
[2017-03-26] MEDS: PANTOPRAZOLE SODIUM 100 ML IVPB SCH (23:04)
[2017-03-26] MEDS: ONDANSETRON 4 MG/2 ML VIAL IVPB PRN (23:12)
[2017-03-27 08:02] LABS: MCH 27.3 pg (25.7-33.7); MEAN CELL VOLUME 82.8 fl (80-96); MEAN PLT VOLUME 8.7 fl (7.5-11.1); PLATELET COUNT 294 K/MM3 (134-434); RDW 18.1 % (11.6-15.6); WHITE BLOOD COUNT 18.3 K/mm3 (4.0-10.0)
[2017-03-27] MEDS: PANTOPRAZOLE SODIUM 100 ML IVPB SCH ×2 (09:00→22:15)
[2017-03-27 09:17] LABS: ALBUMIN 3.3 g/dl (3.4-5.0); ANION GAP 16 (8-16); CALCIUM 7.6 mg/dL (8.5-10.1); CO2 44 mmol/L (21-32); CREATININE 3.3 mg/dL (0.55-1.02); GLUCOSE,RANDOM 85 mg/dL (74-106); SGOT/AST 23 U/L (15-37); SGPT/ALT 23 U/L (12-78)
[2017-03-27 09:22] LABS: ALK PHOS 49 U/L (45-117); BILIRUBIN,TOTAL 0.6 mg/dL (0.2-1.0); TOT PROT 7.6 g/dl (6.4-8.2)
[2017-03-27 09:47] LABS: URINE APPEARANCE CLEAR; URINE BILIRUBIN NEGATIVE (NEGATIVE); URINE BLOOD NEGATIVE (NEGATIVE); URINE COLOR LTYELLOW; URINE GLUCOSE (UA) NEGATIVE (NEGATIVE); URINE KETONE NEGATIVE (NEGATIVE); URINE LEUK ESTERASE NEGATIVE (NEGATIVE); URINE NITRITE NEGATIVE (NEGATIVE); URINE UROBILINOGEN NEGATIVE E.U./dl (0.2-1.0)
[2017-03-27 10:15] LABS: URINE PROTEIN 1+ (NEGATIVE)
--- NOTE | 2017-03-27 11:08 | PN ---
Progress Note, Physician History of Present Illness: Pt w/o N, V, abd pain. Pt w/o SOB, CP, palp, dizziness - Current Medication List Current Medications: Active Medications Albuterol Sulfate (Ventolin 0.083% Nebulizer Soln -) 1 amp NEB Q4H PRN PRN Reason: SHORT OF BREATH/WHEEZING Albuterol/Ipratropium (Duoneb -) 1 amp NEB BID [facility] Last Admin: 03/26/17 23:04 Dose: Not Given Sodium Chloride (Normal Saline -) 1,000 mls @ 75 mls/hr IV ASDIR RAISSA Last Admin: 03/26/17 23:03 Dose: 75 mls/hr Pantoprazole Sodium (Protonix 40mg Ivpb (Pre-Docked)) 100 mls @ 200 mls/hr IVPB BID [facility] Last Admin: 03/26/17 23:04 Dose: 200 mls/hr Ondansetron HCl (Zofran Injection) 4 mg IVPB Q8H PRN PRN Reason: NAUSEA Last Admin: 03/26/17 23:12 Dose: 4 mg - Objective Vital Signs: Vital Signs Temperature 97.7 F 03/27/17 06:00 Pulse Rate 85 03/27/17 06:00 Respiratory Rate 20 03/27/17 06:00 Blood Pressure 94/41 03/27/17 06:00 O2 Sat by Pulse Oximetry (%) 94 L 03/26/17 16:53 Constitutional: Yes: No Distress, Calm, Cachectic Cardiovascular: Yes: Regular Rate and Rhythm, S1, S2 Respiratory: Yes: Regular, Rales (crackles, scattered). No: Wheezes Gastrointestinal: Yes: Normal Bowel Sounds, Soft. No: Tenderness Edema: No Labs: CBC, BMP 03/27/17 05:48 03/27/17 05:48 Problem List - Problems (1) Acute renal failure Code(s): N17.9 - ACUTE KIDNEY FAILURE, UNSPECIFIED Qualifiers: Qualified Code(s): N17.9 - Acute kidney failure, unspecified (2) Hyponatremia Code(s): E87.1 - HYPO-OSMOLALITY AND HYPONATREMIA (3) Scleroderma Code(s): M34.9 - SYSTEMIC SCLEROSIS, UNSPECIFIED (4) Fall Code(s): W19.XXXA - UNSPECIFIED FALL, INITIAL ENCOUNTER (5) CREST (calcinosis, Raynaud's phenomenon, esophageal dysfunction, sclerodactyly, telangiectasia) Code(s): M34.1 - CR(E)ST SYNDROME (6) Opiate dependence Code(s): F11.20 - OPIOID DEPENDENCE, UNCOMPLICATED (7) Opiate abuse, episodic Code(s): F11.10 - OPIOID ABUSE, UNCOMPLICATED (8) Chronic back pain greater than 3 months duration Code(s): M54.9 - DORSALGIA, UNSPECIFIED G89.29 - OTHER CHRONIC PAIN Assessment/Plan IVF; Na is better. GI consult appreciated, case was d/w Dr. Alex Penaloza. Renal consult. Leukocytosis, to monitor AM labs
--- NOTE | 2017-03-27 11:10 | CON.GI ---
Consult Consult Specialty:: GI Referred by:: Dr. Gonzalez Reason for Consultation:: Vomiting - History of Present Illness Chief Complaint: I was vomiting History of Present Illness: 52F with scleroderma and recurrent vomiting that has led to dehydration, hypotension and lactic acidosis in the past. Currently she has had 2 days of intermittent vomiting and lab work revealed hyponatremia. She has a history of scleroderma likely affecting her GI tract and takes 15mg of MS contin BID daily along with 80mg of oxycontin BID. She also has exhibited chronic pseudobstructive patterns on her previous imaging studies and has a history of chronic constipation. In 12/31 she had an exploratory laparotomy for pneumoperitoneum but no perforation was found. It's felt that she had a perforated small bowel diverticulum in the past which was managed conservatively. Her last colonoscopy was on 06/15/15 and revealed mild left colon diverticulosis. EGD on 06/15/15 revealed copious laryngeal reflux, long segment Bonner's esophagus, a hiatal hernia, diffuse atrophic gastritis, large duodenal diverticulum and angiodysplasia in the 2nd portion. She currently denies abdominal pain and wants to eat. She did complain to the urse of greenish liquid coming out of her nose when she lies flat. CT scan reveals distended bowel loops, stool in colon but no overt obstruction. She was recently admitted earlier this month for similar complaints. At that time she refused NGT / digital rectal exam. She does not take regular laxatives at home. 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 Normal coronaries on cardiac cath and EF 65% with mild AI, trace MR and TR on echo @ [facility] [place] 03/31) Pulmonary: Yes: Asthma, COPD, Pneumonia, Other (lung mass of undetermined etiology) Gastrointestinal: Yes: Constipation, Diverticulitis, Diverticulosis (small bowel diverticular perforation, scleroderma affecting the esophagus, Bonner's esophagus, Schatzki ring,, antral ulcer, gastroparesis related to scleroderma), GERD (with long segment Bonner's esophagus and patent Schatzki ring), Peptic Ulcer Disease (antral ulcer ), Other (Bonner's esophagus, GERD, Schatzki ring, perforation of small bowel diverticulum, antral ulcer, scleroderma causing esophageal dysmotility and gastroparesis, GERD with long segment Bonner's esophagus,Schatzki ring,GAVE syndrome) Renal/: Yes: Renal Failure Infectious Disease: Yes: MRSA (bursitis) Psych: Yes: Addictions (marijuana,tobacco and prescription narcotics) Musculoskeletal: Yes: Chronic low back pain, Other (has spinal stimulator) Rheumatology: Yes: Vasculitis, Other (Scleroderma, Raynauds and CREST syndrome) Endocrine: Yes: Hypothyroidism, Other (Malnutrition, osteoporosis) Dermatology: Yes: Cellulitis - Past Surgical History Past Surgical History: Yes: Appendectomy, Colonoscopy, Upper Endoscopy - Alcohol/Substance Use Hx Alcohol Use: No History of Substance Use: reports: Marijuana, Prescription - Smoking History Smoking history: Former smoker (uses ecigarette now) Have you smoked in the past 12 months: Yes Aproximately how many cigarettes per day: 10 If you are a former smoker, when did you quit?: 4 years ago - Social History Usual Living Arrangement: With Parent ADL: Independent Occupation: disabled History of Recent Travel: No Home Medications - Allergies Allergies/Adverse Reactions: Allergies Allergy/AdvReac Type Severity Reaction Status Date / Time Penicillins Allergy Severe Hives Verified 03/26/17 12:18 tomato AdvReac Uncoded 03/26/17 12:18 - Home Medications Home Medications: Ambulatory Orders Duloxetine HCl [Cymbalta -] 60 mg PO DAILY #30 capsule. 03/10/15 Albuterol 0.083% Nebulizer Cinthya [Ventolin 0.083% Nebulizer Soln -] 1 amp NEB Q4H PRN #1 amp 04/11/16 Aspirin [ASA -] 81 mg PO DAILY tab.chew 04/11/16 Budesonide/Formeterol Fumarate [SYMBICORT 80/4.5mcg -] 2 puff IH BID #1 inhaler 04/11/16 Ranitidine [Zantac -] 150 mg PO DAILY 05/27/16 Gabapentin [Neurontin -] 800 mg PO TID capsule 05/28/16 Aclidinium [place] [Tudorza -] 1 puff IH DAILY inhaler 07/20/16 Lactobacillus Acidophilus [Bacid -] 1 each PO DAILY #30 capsule 07/20/16 Metoclopramide HCl [Reglan -] 10 mg PO ACHS tablet 11/04/16 Acetaminophen [Tylenol .Regular Strength -] 650 mg PO Q6H PRN #0 tablet Hydroxychloroquine So4 [Plaquenil -] 200 mg PO BID tablet 07/31/16 Pantoprazole Sodium [Protonix -] 40 mg PO BID tablet.ec 07/31/16 Cyclobenzaprine HCl [Flexeril -] 5 mg PO BID PRN #20 tablet 09/16/16 Lidocaine 5% Patch [Lidoderm -] 2 patch TP DAILY #60 patch 09/16/16 Albuterol 2.5/Ipratropium 0.5 [Duoneb -] 1 amp NEB BID amp 12/17/16 Multivitamins [Multivit ([facility] Form[facility])] 1 tab PO DAILY tab 12/17/16 Magnesium Oxide [Mag-Ox -] 400 mg PO BID #30 tablet MDD 2 12/18/16 Potassium Chloride [K-Dur -] 20 meq PO DAILY #30 tab 12/18/16 Bisacodyl Suppository [Dulcolax Suppository -] 10 mg RC DAILY PRN #0 supp.rect 01/01/17 Metronidazole [Flagyl -] 500 mg PO TID #15 tablet 01/01/17 Family Disease History - Family Disease History Family Disease History: Diabetes: Father (HCV), Heart Disease: Father, Mother, Other: Father, Brother (HIV) Review of Systems - Review of Systems Constitutional: denies: Fever HENT: denies: Difficult Swallowing Cardiovascular: denies: Chest Pain Respiratory: denies: SOB Gastrointestinal: reports: Constipation, Vomiting. denies: Abdominal Pain Physical Exam-GI Vital Signs: Vital Signs Temperature 97.7 F 03/27/17 06:00 Pulse Rate 85 03/27/17 06:00 Respiratory Rate 20 03/27/17 06:00 Blood Pressure 94/41 03/27/17 06:00 O2 Sat by Pulse Oximetry (%) 94 L 03/26/17 16:53 Constitutional: Yes: Calm Eyes: No: Sclera Icterus Cardiovascular: Yes: Regular Rate and Rhythm Respiratory: Yes: CTA Bilaterally Gastrointestinal Inspection: Yes: Scars (+ midline vertical surgical scar). No : Distention ...Auscultate: Yes: Normoactive Bowel Sounds ...Palpate: No: Tenderness ...Percussion: No: Tympanitic Extremities: Yes: Other (UE digit amputations) Edema: No Psychiatric: Yes: Alert, Oriented Labs: CBC, BMP 03/27/17 05:48 03/27/17 05:48 Imaging - Results Cat Scan: Report Reviewed, Image Reviewed Problem List - Problems (1) Vomiting Assessment/Plan: Petra's vomiting appears to be the combination of opioid usage superimposed on her scleroderma associated gastroparesis and pseudobstruction / constipation. She describes having a bowel movement yesterday. Advance to clears for now and monitor then advance as tolerated. If vomiting persists, consider NGT placement however Petra says she would not have one put in. Continue PPI therapy given her laryngeal reflux and Bonner's. Ideally she needs to be weaned off of her opiates and have her opiate dependency treated. Mu -Receptor antagonists would be helpful in treatment of the opioid induced component of her constipation however given her higher risk for spontaneous perforation. Continue electrolyte correction Code(s): R11.10 - VOMITING, UNSPECIFIED
[2017-03-27] MEDS: ALBUTEROL SO4 2.5/IPRATROPIUM 0.5 INH SOL 3 ML VIAL.NEB. NEB SCH ×2 (11:20→21:54)
[2017-03-27 11:32] LABS: URINE HYALINE CAST 1 /lpf; URINE MUCUS RARE; URINE RBC 1 /hpf (0-3); URINE WBC 1 /hpf (3-5)
--- NOTE | 2017-03-27 11:33 | CON.NEP ---
Consult Consult Specialty:: Nephrology Referred by:: Dr. Gonzalez Reason for Consultation:: Acute Renal Failure, Hyponatremia - History of Present Illness Chief Complaint: Nausea and Vomiting History of Present Illness: 52 year old Woman with PMhx of Raynaud's w/ multiple upper extremity digit amputations, COPD, Barretts Esophagus, Hx of Renal failure and Hyponatremia presented with N/V and weakness and found to have PRASHANT with BUN/Cr of 69/4.2 and Na of 119. Pt states that she has been having weakness for 2 days and N/V for 4 days. Unable to keep food down. No diarrhea. Denies any NSAID use. No recent contrast exposure. No recent Abx use. No chest pain or sob. No flank pain. CT of the Abd showed possible obstruction and stool retention. on IVF. reports that she is making urine. - History Source History Provided By: Patient Limitations to Obtaining History: No Limitations - Past Medical History COUNTY AGENT: Yes: Peripheral Neuropathy Cardio/Vascular: Yes: Aortic Insufficiency (mild), Mitral Insufficiency (mild), Other (Raynaud's w/ multiple upper extremity digit amputations. 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), GERD (with long segment Bonner's esophagus and patent Schatzki ring), Peptic Ulcer Disease (antral ulcer ), Other (Bonner's esophagus, GERD, Schatzki ring, perforation of small bowel diverticulum, antral ulcer, scleroderma causing esophageal dysmotility and gastroparesis, GERD with long segment Bonner's esophagus,Schatzki ring,GAVE syndrome) Renal/: Yes: Renal Failure Infectious Disease: Yes: MRSA (bursitis) Psych: Yes: Addictions (marijuana,tobacco and prescription narcotics) Musculoskeletal: Yes: Chronic low back pain, Other (has spinal stimulator) Rheumatology: Yes: Vasculitis, Other (Scleroderma, Raynauds and CREST syndrome) Endocrine: Yes: Hypothyroidism, Other (Malnutrition, osteoporosis) Dermatology: Yes: Cellulitis - Past Surgical History Past Surgical History: Yes: Appendectomy, Colonoscopy, Upper Endoscopy - Alcohol/Substance Use Hx Alcohol Use: No History of Substance Use: reports: Marijuana, Prescription - Smoking History Smoking history: Former smoker (uses ecigarette now) Have you smoked in the past 12 months: Yes Aproximately how many cigarettes per day: 10 If you are a former smoker, when did you quit?: 4 years ago - Social History Usual Living Arrangement: With Parent ADL: Independent Occupation: disabled History of Recent Travel: No Home Medications - Allergies Allergies/Adverse Reactions: Allergies Allergy/AdvReac Type Severity Reaction Status Date / Time Penicillins Allergy Severe Hives Verified 03/26/17 12:18 tomato AdvReac Uncoded 03/26/17 12:18 - Home Medications Home Medications: Ambulatory Orders Duloxetine HCl [Cymbalta -] 60 mg PO DAILY #30 capsule. 03/10/15 Albuterol 0.083% Nebulizer Cinthya [Ventolin 0.083% Nebulizer Soln -] 1 amp NEB Q4H PRN #1 amp 04/11/16 Aspirin [ASA -] 81 mg PO DAILY tab.chew 04/11/16 Budesonide/Formeterol Fumarate [SYMBICORT 80/4.5mcg -] 2 puff IH BID #1 inhaler 04/11/16 Ranitidine [Zantac -] 150 mg PO DAILY 05/27/16 Gabapentin [Neurontin -] 800 mg PO TID capsule 05/28/16 Aclidinium [place] [Tudorza -] 1 puff IH DAILY inhaler 07/20/16 Lactobacillus Acidophilus [Bacid -] 1 each PO DAILY #30 capsule 07/20/16 Metoclopramide HCl [Reglan -] 10 mg PO ACHS tablet 07/20/16 Acetaminophen [Tylenol .Regular Strength -] 650 mg PO Q6H PRN #0 tablet Hydroxychloroquine So4 [Plaquenil -] 200 mg PO BID tablet 07/31/16 Pantoprazole Sodium [Protonix -] 40 mg PO BID tablet.ec 07/31/16 Cyclobenzaprine HCl [Flexeril -] 5 mg PO BID PRN #20 tablet 09/16/16 Lidocaine 5% Patch [Lidoderm -] 2 patch TP DAILY #60 patch 09/16/16 Albuterol 2.5/Ipratropium 0.5 [Duoneb -] 1 amp NEB BID amp 12/17/16 Multivitamins [Multivit ([facility] Form[facility])] 1 tab PO DAILY tab 12/17/16 Magnesium Oxide [Mag-Ox -] 400 mg PO BID #30 tablet MDD 2 12/18/16 Potassium Chloride [K-Dur -] 20 meq PO DAILY #30 tab 12/18/16 Bisacodyl Suppository [Dulcolax Suppository -] 10 mg RC DAILY PRN #0 supp.rect 01/01/17 Metronidazole [Flagyl -] 500 mg PO TID #15 tablet 01/01/17 Family Disease History - Family Disease History Family Disease History: Diabetes: Father (HCV), Heart Disease: Father, Mother, Other: Father, Brother (HIV) Review of Systems - Review of Systems Constitutional: reports: Lethargy, Loss of Appetite, Weakness. denies: Chills, Fever Eyes: reports: No Symptoms HENT: reports: No Symptoms Neck: reports: No Symptoms Cardiovascular: denies: Chest Pain, Edema, Palpitations, Shortness of Breath Respiratory: denies: Cough, Exercise Intolerance, Hemoptysis, Orthopnea, PND, Snoring, SOB, SOB on Exertion, Wheezing Gastrointestinal: reports: Constipation, Nausea, Vomiting. denies: Abdominal Pain, Diarrhea, Vomiting Blood Genitourinary: reports: No Symptoms Musculoskeletal: reports: No Symptoms Integumentary: reports: No Symptoms Neurological: reports: No Symptoms Endocrine: reports: No Symptoms Hematology/Lymphatic: reports: No Symptoms Nephrology Consult - Height Height: 5 ft 2 in - Weight Weight: 98 lb - BMI Body Mass Index (BMI): 17.9 - Lab Results CBC,BMP: CBC, BMP 03/27/17 05:48 03/27/17 05:48 Anion Gap: Anion Gap Anion Gap 16 (8-16) 03/27/17 05:48 - Imaging Chest X-ray: Report Reviewed Cat Scan: Report Reviewed - Physical Examination Vital Signs: Vital Signs Temperature 97.7 F 03/27/17 06:00 Pulse Rate 85 03/27/17 06:00 Respiratory Rate 20 03/27/17 06:00 Blood Pressure 94/41 03/27/17 06:00 O2 Sat by Pulse Oximetry (%) 94 L 03/26/17 16:53 Constitutional: Yes: No Distress, Calm, Cachectic Eyes: Yes: Conjunctiva Clear HENT: Yes: Atraumatic, Normocephalic Neck: Yes: Supple Cardiovascular: Yes: Regular Rate and Rhythm, S1, S2. No: JVD, Murmur, Rub Respiratory: Yes: Regular, CTA Bilaterally, Diminished. No: On Nasal O2, Rales , Rhonchi, SOB Gastrointestinal: Yes: Normal Bowel Sounds, Distention. No: Tenderness, Tenderness, Epigastrium, Tenderness, Rebound Renal/: No: Anuria, Bladder Distention, CVA Tenderness - Left, CVA Tenderness - Right, Collier Present Extremities: Yes: Amputation Edema: No Neurological: Yes: Alert, Oriented. No: Seizure Problem List - Problems (1) Acute renal failure Code(s): N17.9 - ACUTE KIDNEY FAILURE, UNSPECIFIED Qualifiers: Acute renal failure type: unspecified Qualified Code(s): N17.9 - Acute kidney failure, unspecified (2) COPD exacerbation Code(s): J44.1 - CHRONIC OBSTRUCTIVE PULMONARY DISEASE W (ACUTE) EXACERBATION (3) CREST syndrome Code(s): M34.1 - CR(E)ST SYNDROME (4) Dehydration Code(s): E86.0 - DEHYDRATION (5) Hyponatremia Code(s): E87.1 - HYPO-OSMOLALITY AND HYPONATREMIA (6) Opioid abuse with intoxication Code(s): F11.129 - OPIOID ABUSE WITH INTOXICATION, UNSPECIFIED Assessment/Plan 52 year old Woman with PMhx of Raynaud's w/ multiple upper extremity digit amputations, COPD, Barretts Esophagus, Hx of Renal failure and Hyponatremia presented with N/V and weakness and found to have PRASHANT with BUN/Cr of 69/4.2 and Na of 119 #Acute Renal Failure secondary to volume depletion in setting of N/V and bowel obstruction PT with low urine Na, High BUN/Cr ration and good initial response to IVF Continue isotonic saline keep MAP > 65 no NSAID, JEOVANNY/ARB, Fleet enemas Trend BUN/cr and electrolytes Dose all meds for Cr Cl less then 15 while pt is in acute renal failure #Hypovolemic Hyponatremia SErum Na improving with isotonic saline Repeat BMP this afternoon goal rate of correction is 8-10 in 24 hours #Nasuea/Vomiting/Bowel obstruction Work up and treatment as per GI #Metabolic alkalosis vs. Resp acidosis with metabolic compensation Check ABG on IV steroids Thank you Will follow Srinivasan Tijerina DO
--- NOTE | 2017-03-27 11:59 | EKG ---
Test Reason : Blood Pressure : / mmHG Vent. Rate : 080 BPM Atrial Rate : 080 BPM P-R Int : 146 ms QRS Dur : 068 ms QT Int : 480 ms P-R-T Axes : 055 058 053 degrees QTc Int : 553 ms POOR DATA QUALITY, INTERPRETATION MAY BE ADVERSELY AFFECTED NORMAL SINUS RHYTHM PROLONGED QT ABNORMAL ECG WHEN COMPARED WITH ECG OF 16-MAR-2017 11:09, NONSPECIFIC T WAVE ABNORMALITY NO LONGER EVIDENT IN ANTERIOR LEADS Confirmed by BAILEY CEJA MD ([id number]) on 03/27/2017 11:59:05 AM Referred By: Confirmed By:BAILEY CEJA MD
[2017-03-27] MEDS: SODIUM CHLORIDE 1,000 ML IV SCH (22:14)
[2017-03-27] MEDS: ONDANSETRON 4 MG/2 ML VIAL IVPB PRN (22:15)
[2017-03-28 08:19] LABS: BASOPHIL 0.1 % (0-2.0); EOSINOPHIL 0.2 % (0-4.5); MCHC 32.5 g/dl (32.0-36.0); MEAN CELL VOLUME 83.2 fl (80-96); MEAN PLT VOLUME 8.6 fl (7.5-11.1); NEUTROPHILS 90.7 % (42.8-82.8); PLATELET COUNT 246 K/MM3 (134-434); RDW 17.5 % (11.6-15.6); WHITE BLOOD COUNT 17.3 K/mm3 (4.0-10.0)
[2017-03-28 09:53] LABS: ALBUMIN 2.6 g/dl (3.4-5.0); ALK PHOS 41 U/L (45-117); ANION GAP 14 (8-16); BILIRUBIN,TOTAL 0.5 mg/dL (0.2-1.0); CALCIUM 7.8 mg/dL (8.5-10.1); CO2 34 mmol/L (21-32); CREATININE 1.9 mg/dL (0.55-1.02); GLUCOSE,RANDOM 85 mg/dL (74-106); MAGNESIUM 1.8 mg/dL (1.8-2.4); PHOSPHOROUS 3.6 mg/dL (2.5-4.9); SGOT/AST 16 U/L (15-37); SGPT/ALT 18 U/L (12-78); TOT PROT 6.1 g/dl (6.4-8.2)
[2017-03-28] MEDS: ALBUTEROL SO4 2.5/IPRATROPIUM 0.5 INH SOL 3 ML VIAL.NEB. NEB SCH ×2 (10:20→22:43)
--- NOTE | 2017-03-28 10:41 | PN ---
Progress Note, Physician History of Present Illness: Pt w/o V, abd pain, tolerating PO intake; occasionally has N. Pt w/o SOB, CP, palp, dizziness - Current Medication List Current Medications: Active Medications Albuterol Sulfate (Ventolin 0.083% Nebulizer Soln -) 1 amp NEB Q4H PRN PRN Reason: SHORT OF BREATH/WHEEZING Albuterol/Ipratropium (Duoneb -) 1 amp NEB BID [facility] Last Admin: 03/27/17 21:54 Dose: 1 amp Sodium Chloride (Normal Saline -) 1,000 mls @ 75 mls/hr IV ASDIR RAISSA Last Admin: 03/27/17 22:14 Dose: 75 mls/hr Pantoprazole Sodium (Protonix 40mg Ivpb (Pre-Docked)) 100 mls @ 200 mls/hr IVPB BID [facility] Last Admin: 03/27/17 22:15 Dose: 200 mls/hr Potassium Chloride (Potassium Chloride 10 Meq Premix Ivpb -) 100 mls @ 100 mls/ hr IVPB Q60M [facility] Stop: 03/28/17 12:44 Magnesium Oxide (Mag-Ox -) 400 mg PO DAILY [facility] Ondansetron HCl (Zofran Injection) 4 mg IVPB Q8H PRN PRN Reason: NAUSEA Last Admin: 03/27/17 22:15 Dose: 4 mg Potassium Chloride (K-Dur -) 20 meq PO ONCE ONE Stop: 03/28/17 10:39 - Objective Vital Signs: Vital Signs Temperature 99.0 F 03/28/17 06:00 Pulse Rate 93 H 03/28/17 06:00 Respiratory Rate 20 03/28/17 06:00 Blood Pressure 116/67 03/28/17 06:00 O2 Sat by Pulse Oximetry (%) 96 03/27/17 21:00 Constitutional: Yes: No Distress, Calm Cardiovascular: Yes: Regular Rate and Rhythm, S1, S2 Respiratory: Yes: Regular, Other (coarse BS) Edema: No Neurological: Yes: Alert, Oriented Labs: CBC, BMP 03/28/17 07:45 03/28/17 07:45 Problem List - Problems (1) Acute renal failure Code(s): N17.9 - ACUTE KIDNEY FAILURE, UNSPECIFIED Qualifiers: Acute renal failure type: unspecified Qualified Code(s): N17.9 - Acute kidney failure, unspecified (2) Hyponatremia Code(s): E87.1 - HYPO-OSMOLALITY AND HYPONATREMIA (3) Scleroderma Code(s): M34.9 - SYSTEMIC SCLEROSIS, UNSPECIFIED (4) Fall Code(s): W19.XXXA - UNSPECIFIED FALL, INITIAL ENCOUNTER (5) CREST (calcinosis, Raynaud's phenomenon, esophageal dysfunction, sclerodactyly, telangiectasia) Code(s): M34.1 - CR(E)ST SYNDROME (6) Opiate dependence Code(s): F11.20 - OPIOID DEPENDENCE, UNCOMPLICATED (7) Opiate abuse, episodic Code(s): F11.10 - OPIOID ABUSE, UNCOMPLICATED (8) Chronic back pain greater than 3 months duration Code(s): M54.9 - DORSALGIA, UNSPECIFIED G89.29 - OTHER CHRONIC PAIN (9) Hypokalemia Assessment/Plan: replete; to monitor Code(s): E87.6 - HYPOKALEMIA Assessment/Plan IVF; Na is better. GI consult appreciated. Renal consult appreciated. Leukocytosis, to monitor. Replete K (IV and PO), to monitor AM labs
[2017-03-28] MEDS ORDERED: POTASSIUM CHLORIDE TABS 20 MEQ TABLET.ER (FP) PO ONE (10:45)
[2017-03-28] MEDS: PANTOPRAZOLE SODIUM 100 ML IVPB SCH ×2 (12:30→21:49)
[2017-03-28] MEDS: KCL 10 MEQ IVPB 100 ML IVPB SCH ×2 (12:30→12:35)
[2017-03-28] MEDS: MAGNESIUM OXIDE 400 MG TABLET (FP) PO SCH (12:30)
--- NOTE | 2017-03-28 14:25 | PN ---
Progress Note (short form) - Note Progress Note: Renal Follow up for PRASHANT/Hyponatremia Pt seen and examined at the bedside awake and alert no acute complaints on IVF no sob, chest pain, seizures, ams Vital Signs Temperature 99.0 F 03/28/17 06:00 Pulse Rate 93 H 03/28/17 06:00 Respiratory Rate 20 03/28/17 06:00 Blood Pressure 116/67 03/28/17 06:00 O2 Sat by Pulse Oximetry (%) 96 03/27/17 21:00 Intake & Output 03/25/17 03/26/17 03/27/17 03/28/17 23:59 23:59 23:59 23:59 Intake Total 2300 500 Balance 2300 500 Weight 98 lb 98 lb Gen: NAD CVS: RRR, No M/R Lungs: CTA, no rales or wheeze Abd: Soft NT/ND Ext: no edema CBC, BMP 03/28/17 07:45 03/28/17 07:45 Laboratory Tests 02/11/17 03/27/17 03/27/17 06:30 05:48 06:00 MCV Serum Osmolality 281 Calcium 7.6 L Phosphorus 1.5 L D Magnesium 2.3 D Albumin Urine Osmolality Ur Random Sodium 16 03/27/17 03/28/17 03/28/17 06:00 07:45 07:45 MCV 83.2 Serum Osmolality Calcium 7.8 L Phosphorus 3.6 D Magnesium 1.8 D Albumin 2.6 L D Urine Osmolality 376 D Ur Random Sodium Current Medications Albuterol Sulfate (Ventolin 0.083% Nebulizer Soln -) 1 amp NEB Q4H PRN PRN Reason: SHORT OF BREATH/WHEEZING Albuterol/Ipratropium (Duoneb -) 1 amp NEB BID [facility] Last Admin: 03/28/17 10:20 Dose: 1 amp Sodium Chloride (Normal Saline -) 1,000 mls @ 75 mls/hr IV ASDIR [facility] Last Admin: 03/27/17 22:14 Dose: 75 mls/hr Pantoprazole Sodium (Protonix 40mg Ivpb (Pre-Docked)) 100 mls @ 200 mls/hr IVPB BID [facility] Last Admin: 03/28/17 12:30 Dose: 200 mls/hr Magnesium Oxide (Mag-Ox -) 400 mg PO DAILY [facility] Last Admin: 03/28/17 12:30 Dose: 400 mg Ondansetron HCl (Zofran Injection) 4 mg IVPB Q8H PRN PRN Reason: NAUSEA Last Admin: 03/27/17 22:15 Dose: 4 mg 52 year old Woman with PMhx of Raynaud's w/ multiple upper extremity digit amputations, COPD, Barretts Esophagus, Hx of Renal failure and Hyponatremia presented with N/V and weakness and found to have PRASHANT with BUN/Cr of 69/4.2 and Na of 119 #Acute Renal Failure secondary to volume depletion in setting of N/V and bowel obstruction Renal function with gradual improvement with IVF hydration continue IVF at present rate as CR is not at baseline yet Trend BUN/Cr and electrolytes #Hypovolemic Hyponatremia serum osmolarity is WNL continue isotonic saline at this time no indication for 3% saline #Nasuea/Vomiting/Bowel obstruction Work up and treatment as per GI #Metabolic alkalosis vs. Resp acidosis with metabolic compensation no abd reported but serum bicarb is improved with hydration likely indicating saline responsive metabolic alkalosis in setting of volume depletion Srinivasan Tijerina DO Problem List - Problems (1) Acute renal failure Code(s): N17.9 - ACUTE KIDNEY FAILURE, UNSPECIFIED Qualifiers: Acute renal failure type: unspecified Qualified Code(s): N17.9 - Acute kidney failure, unspecified (2) COPD exacerbation Code(s): J44.1 - CHRONIC OBSTRUCTIVE PULMONARY DISEASE W (ACUTE) EXACERBATION (3) CREST syndrome Code(s): M34.1 - CR(E)ST SYNDROME (4) Dehydration Code(s): E86.0 - DEHYDRATION (5) Hyponatremia Code(s): E87.1 - HYPO-OSMOLALITY AND HYPONATREMIA (6) Opioid abuse with intoxication Code(s): F11.129 - OPIOID ABUSE WITH INTOXICATION, UNSPECIFIED
[2017-03-28] MEDS: SODIUM CHLORIDE 1,000 ML IV SCH (21:49)
[2017-03-29 07:18] LABS: MCH 27.2 pg (25.7-33.7); MCHC 32.7 g/dl (32.0-36.0); MEAN CELL VOLUME 83.2 fl (80-96); PLATELET COUNT 231 K/MM3 (134-434); RDW 17.4 % (11.6-15.6); WHITE BLOOD COUNT 11.9 K/mm3 (4.0-10.0)
[2017-03-29 07:46] LABS: ALBUMIN 2.3 g/dl (3.4-5.0); CALCIUM 7.8 mg/dL (8.5-10.1)
[2017-03-29 07:52] LABS: ALK PHOS 38 U/L (45-117); ANION GAP 11 (8-16); BILIRUBIN,TOTAL 0.5 mg/dL (0.2-1.0); CO2 33 mmol/L (21-32); GLUCOSE,RANDOM 79 mg/dL (74-106); MAGNESIUM 1.8 mg/dL (1.8-2.4); SGOT/AST 19 U/L (15-37); SGPT/ALT 20 U/L (12-78); TOT PROT 5.6 g/dl (6.4-8.2)
[2017-03-29] MEDS: ALBUTEROL SO4 2.5/IPRATROPIUM 0.5 INH SOL 3 ML VIAL.NEB. NEB SCH ×2 (10:35→22:00)
[2017-03-29] MEDS ORDERED: POTASSIUM CHLORIDE TABS 20 MEQ TABLET.ER (FP) PO ONE (10:51)
--- NOTE | 2017-03-29 10:53 | PN ---
Progress Note, Physician History of Present Illness: Pt w/o V, abd pain, tolerating PO intake; Nausea is improved. Pt w/o SOB, CP, palp, dizziness - Current Medication List Current Medications: Active Medications Albuterol Sulfate (Ventolin 0.083% Nebulizer Soln -) 1 amp NEB Q4H PRN PRN Reason: SHORT OF BREATH/WHEEZING Albuterol/Ipratropium (Duoneb -) 1 amp NEB BID [facility] Last Admin: 03/28/17 22:43 Dose: Not Given Sodium Chloride (Normal Saline -) 1,000 mls @ 75 mls/hr IV ASDIR [facility] Last Admin: 03/28/17 21:49 Dose: 75 mls/hr Pantoprazole Sodium (Protonix 40mg Ivpb (Pre-Docked)) 100 mls @ 200 mls/hr IVPB BID [facility] Last Admin: 03/28/17 21:49 Dose: 200 mls/hr Potassium Chloride (Potassium Chloride 10 Meq Premix Ivpb -) 100 mls @ 100 mls/ hr IVPB Q60M [facility] Stop: 03/29/17 12:59 Magnesium Oxide (Mag-Ox -) 400 mg PO DAILY [facility] Last Admin: 03/28/17 12:30 Dose: 400 mg Ondansetron HCl (Zofran Injection) 4 mg IVPB Q8H PRN PRN Reason: NAUSEA Last Admin: 03/27/17 22:15 Dose: 4 mg Potassium Chloride (K-Dur -) 20 meq PO ONCE ONE Stop: 03/29/17 10:52 - Objective Vital Signs: Vital Signs Temperature 98.1 F 03/29/17 06:00 Pulse Rate 77 03/29/17 06:00 Respiratory Rate 20 03/29/17 06:00 Blood Pressure 100/68 03/29/17 06:00 O2 Sat by Pulse Oximetry (%) 96 03/28/17 10:00 Constitutional: Yes: No Distress, Calm Cardiovascular: Yes: Regular Rate and Rhythm, S1, S2 Respiratory: Yes: Regular, Other (coarse BS) Gastrointestinal: Yes: Normal Bowel Sounds, Soft. No: Palpable Mass, Tenderness Edema: No Neurological: Yes: Alert, Oriented Labs: CBC, BMP 03/29/17 05:35 03/29/17 05:35 Problem List - Problems (1) Acute renal failure Code(s): N17.9 - ACUTE KIDNEY FAILURE, UNSPECIFIED Qualifiers: Acute renal failure type: unspecified Qualified Code(s): N17.9 - Acute kidney failure, unspecified (2) Hyponatremia Code(s): E87.1 - HYPO-OSMOLALITY AND HYPONATREMIA (3) Scleroderma Code(s): M34.9 - SYSTEMIC SCLEROSIS, UNSPECIFIED (4) Fall Code(s): W19.XXXA - UNSPECIFIED FALL, INITIAL ENCOUNTER (5) CREST (calcinosis, Raynaud's phenomenon, esophageal dysfunction, sclerodactyly, telangiectasia) Code(s): M34.1 - CR(E)ST SYNDROME (6) Opiate dependence Code(s): F11.20 - OPIOID DEPENDENCE, UNCOMPLICATED (7) Opiate abuse, episodic Code(s): F11.10 - OPIOID ABUSE, UNCOMPLICATED (8) Chronic back pain greater than 3 months duration Code(s): M54.9 - DORSALGIA, UNSPECIFIED G89.29 - OTHER CHRONIC PAIN (9) Hypokalemia Code(s): E87.6 - HYPOKALEMIA Assessment/Plan IVF; Na is better. GI consult appreciated. Renal consult appreciated. Leukocytosis, to monitor. Continue to replete K (IV and PO), to monitor in AM AM labs
[2017-03-29] MEDS: MAGNESIUM OXIDE 400 MG TABLET (FP) PO SCH (11:21)
[2017-03-29] MEDS: PANTOPRAZOLE SODIUM 100 ML IVPB SCH ×2 (11:22→21:28)
[2017-03-29] MEDS: KCL 10 MEQ IVPB 100 ML IVPB SCH ×2 (11:26→14:25)
[2017-03-29] MEDS: SODIUM CHLORIDE 1,000 ML IV SCH (11:30)
--- NOTE | 2017-03-29 18:24 | PN ---
Progress Note, Physician Chief Complaint: The patient seen in her bed. reports feeling better. did not vomit today. Maintains good urine output. - Current Medication List Current Medications: Active Medications Albuterol Sulfate (Ventolin 0.083% Nebulizer Soln -) 1 amp NEB Q4H PRN PRN Reason: SHORT OF BREATH/WHEEZING Albuterol/Ipratropium (Duoneb -) 1 amp NEB BID [facility] Last Admin: 03/29/17 10:35 Dose: Not Given Sodium Chloride (Normal Saline -) 1,000 mls @ 75 mls/hr IV ASDIR [facility] Last Admin: 03/29/17 11:30 Dose: 75 mls/hr Pantoprazole Sodium (Protonix 40mg Ivpb (Pre-Docked)) 100 mls @ 200 mls/hr IVPB BID [facility] Last Admin: 03/29/17 11:22 Dose: 200 mls/hr Magnesium Oxide (Mag-Ox -) 400 mg PO DAILY [facility] Last Admin: 03/29/17 11:21 Dose: 400 mg Ondansetron HCl (Zofran Injection) 4 mg IVPB Q8H PRN PRN Reason: NAUSEA Last Admin: 03/27/17 22:15 Dose: 4 mg - Objective Vital Signs: Vital Signs Temperature 97.6 F 03/29/17 15:45 Pulse Rate 102 H 03/29/17 15:45 Respiratory Rate 20 03/29/17 15:45 Blood Pressure 101/59 03/29/17 15:45 O2 Sat by Pulse Oximetry (%) 97 03/29/17 09:00 Constitutional: Yes: No Distress, Calm Eyes: Yes: Conjunctiva Clear HENT: Yes: Normocephalic Cardiovascular: Yes: Regular Rate and Rhythm, S1, S2 Respiratory: Yes: CTA Bilaterally Gastrointestinal: Yes: Normal Bowel Sounds, Soft. No: Ascites, Distention Genitourinary: Yes: WNL Extremities: Yes: Amputation (multiple digital amputations are noted.) Labs: CBC, BMP 03/29/17 05:35 03/29/17 05:35 Problem List - Problems (1) Abdominal pain Code(s): R10.9 - UNSPECIFIED ABDOMINAL PAIN (2) Acute renal failure Code(s): N17.9 - ACUTE KIDNEY FAILURE, UNSPECIFIED Qualifiers: Acute renal failure type: unspecified Qualified Code(s): N17.9 - Acute kidney failure, unspecified (3) Anemia Code(s): D64.9 - ANEMIA, UNSPECIFIED Qualifiers: Anemia type: iron deficiency Iron deficiency anemia type: unspecified iron deficiency Qualified Code(s): D50.9 - Iron deficiency anemia, unspecified (4) CREST (calcinosis, Raynaud's phenomenon, esophageal dysfunction, sclerodactyly, telangiectasia) Code(s): M34.1 - CR(E)ST SYNDROME (5) Chronic renal failure Code(s): N18.9 - CHRONIC KIDNEY DISEASE, UNSPECIFIED (6) Dehydration Code(s): E86.0 - DEHYDRATION (7) Hypokalemia Code(s): E87.6 - HYPOKALEMIA (8) Raynauds disease Code(s): I73.00 - RAYNAUD'S SYNDROME WITHOUT GANGRENE (9) Scleroderma Code(s): M34.9 - SYSTEMIC SCLEROSIS, UNSPECIFIED (10) Vomiting Code(s): R11.10 - VOMITING, UNSPECIFIED Assessment/Plan 52 year old Woman with PMhx of Raynaud's w/ multiple upper extremity digit amputations, COPD, Barretts Esophagus, Hx of Renal failure and Hyponatremia Admitted with nausea and vomiting, weakness and found to elevated BUN/ Cr. The azotemia is improving with Hydration. Should continue Saline Hydration. Hypokalemia due to K shift and Kaliuresis in Profound Metabolic alkalosis. Hyponatremia improving. The Hyponatremia can be explained on the basis of Appropriate ADH release in volume depletion. Nasuea/Vomiting/Bowel obstruction Work up and treatment as per GI Michelle Washington MD
[2017-03-30] MEDS: SODIUM CHLORIDE 1,000 ML IV SCH (00:04)
[2017-03-30 06:54] LABS: MCH 27.4 pg (25.7-33.7); MCHC 32.5 g/dl (32.0-36.0); MEAN CELL VOLUME 84.4 fl (80-96); PLATELET COUNT 233 K/MM3 (134-434); RDW 17.2 % (11.6-15.6); WHITE BLOOD COUNT 8.2 K/mm3 (4.0-10.0)
[2017-03-30 07:29] LABS: ALBUMIN 2.2 g/dl (3.4-5.0); ANION GAP 9 (8-16); CO2 30 mmol/L (21-32); GLUCOSE,RANDOM 73 mg/dL (74-106); MAGNESIUM 1.4 mg/dL (1.8-2.4)
[2017-03-30 07:32] LABS: ALK PHOS 38 U/L (45-117); BILIRUBIN,TOTAL 0.4 mg/dL (0.2-1.0); CREATININE 0.7 mg/dL (0.55-1.02); SGOT/AST 17 U/L (15-37); SGPT/ALT 17 U/L (12-78); TOT PROT 5.4 g/dl (6.4-8.2)
[2017-03-30] MEDS: PANTOPRAZOLE SODIUM 100 ML IVPB SCH (09:54)
[2017-03-30] MEDS: MAGNESIUM OXIDE 400 MG TABLET (FP) PO SCH (09:54)
[2017-03-30] MEDS: ALBUTEROL SO4 2.5/IPRATROPIUM 0.5 INH SOL 3 ML VIAL.NEB. NEB SCH (10:18)
[2017-03-30] MEDS ORDERED: POTASSIUM CHLORIDE TABS 20 MEQ TABLET.ER (FP) PO ONE (10:52)
[2017-03-30] MEDS ORDERED: MAGNESIUM SULF 50% (8.12 MEQ/2 ML-1 GM VIAL) ONE (12:48)
--- NOTE | 2017-03-30 13:11 | PN ---
Progress Note (short form) - Note Progress Note: Renal Follow up for PRASHANT/Hyponatremia Pt seen and examined at the bedside no acute complaints Vital Signs Temperature 98.3 F 03/30/17 02:30 Pulse Rate 80 03/30/17 02:30 Respiratory Rate 18 03/30/17 02:30 Blood Pressure 98/58 03/30/17 02:30 O2 Sat by Pulse Oximetry (%) 97 03/29/17 20:41 Intake & Output 03/27/17 03/28/17 03/29/17 03/30/17 23:59 23:59 23:59 23:59 Intake Total 2300 0 2950 1000 Balance 2300 0 2950 1000 Weight 98 lb Gen: NAD CVS: RRR, No M/R Lungs: CTA, no rales or wheeze Abd: Soft NT/ND Ext: no edema CBC, BMP 03/30/17 05:35 03/30/17 05:35 Current Medications Albuterol Sulfate (Ventolin 0.083% Nebulizer Soln -) 1 amp NEB Q4H PRN PRN Reason: SHORT OF BREATH/WHEEZING Albuterol/Ipratropium (Duoneb -) 1 amp NEB BID [facility] Last Admin: 03/30/17 10:18 Dose: 1 amp Sodium Chloride (Normal Saline -) 1,000 mls @ 75 mls/hr IV ASDIR RAISSA Last Admin: 03/30/17 00:04 Dose: 75 mls/hr Pantoprazole Sodium (Protonix 40mg Ivpb (Pre-Docked)) 100 mls @ 200 mls/hr IVPB BID [facility] Last Admin: 03/30/17 09:54 Dose: 200 mls/hr Magnesium Sulfate 4 gm/ (Miscellaneous) 100 mls @ 33.333 mls/hr IVPB ONCE ONE Stop: 03/30/17 13:59 Magnesium Oxide (Mag-Ox -) 400 mg PO DAILY [facility] Last Admin: 03/30/17 09:54 Dose: 400 mg Ondansetron HCl (Zofran Injection) 4 mg IVPB Q8H PRN PRN Reason: NAUSEA Last Admin: 03/27/17 22:15 Dose: 4 mg 52 year old Woman with PMhx of Raynaud's w/ multiple upper extremity digit amputations, COPD, Barretts Esophagus, Hx of Renal failure and Hyponatremia presented with N/V and weakness and found to have PRASHANT with BUN/Cr of 69/4.2 and Na of 119 #Acute Renal Failure secondary to volume depletion in setting of N/V and bowel obstruction Renal function now improved to baseline will need repeat labs as outpatient with PMD #Hypovolemic Hyponatremia serum osmolarity is WNL Na is stable #Nasuea/Vomiting/Bowel obstruction Work up and treatment as per GI #Hypomagnesemia/Hypokalemia Give Mg sulfate 4g IV x 1 Kcl 40meq po x 1 today repeat labs as outpatient Srinivasan Tijerina DO Problem List - Problems (1) Acute renal failure Code(s): N17.9 - ACUTE KIDNEY FAILURE, UNSPECIFIED Qualifiers: Acute renal failure type: unspecified Qualified Code(s): N17.9 - Acute kidney failure, unspecified (2) COPD exacerbation Code(s): J44.1 - CHRONIC OBSTRUCTIVE PULMONARY DISEASE W (ACUTE) EXACERBATION (3) CREST syndrome Code(s): M34.1 - CR(E)ST SYNDROME (4) Dehydration Code(s): E86.0 - DEHYDRATION (5) Hyponatremia Code(s): E87.1 - HYPO-OSMOLALITY AND HYPONATREMIA (6) Opioid abuse with intoxication Code(s): F11.129 - OPIOID ABUSE WITH INTOXICATION, UNSPECIFIED
--- NOTE | 2017-03-30 14:47 | DS ---
Physical Examination Vital Signs: Vital Signs Temperature 98.3 F 03/30/17 02:30 Pulse Rate 80 03/30/17 02:30 Respiratory Rate 18 03/30/17 02:30 Blood Pressure 98/58 03/30/17 02:30 O2 Sat by Pulse Oximetry (%) 97 03/29/17 20:41 Findings/Remarks: Pt wants to go home AMA, not to wait for Mg sulfate to finish. Pt w/o SOB, CP, palp, N, V, abd pain. Pt w/o sore throat, nasal DC, cough, diarrhea, dysuria. Constitutional: Yes: No Distress, Calm Cardiovascular: Yes: Regular Rate and Rhythm, S1, S2 Respiratory: Yes: Regular, CTA Bilaterally, Rhonchi (chronic) Gastrointestinal: Yes: Normal Bowel Sounds, Soft. No: Palpable Mass, Tenderness Edema: No Neurological: Yes: Alert, Oriented, Cran Nerves II-XII Intact Labs: CBC, BMP 03/30/17 05:35 03/30/17 05:35 Discharge Summary Reason For Visit: SYSTEMIC SCLEROSIS; ARF; HYPONATREMIA Current Active Problems Fall (Acute) Opiate abuse, episodic (Acute) Hospital Course: Pt came to ER c/o weakness, fall, vomiting. In ER she was found to have hyponatremia (119 mEq), be in ARF. Pt was started on IVF, electrolytes were replaced. Pt was seen inn consult by GI (Dr. Alex Penaloza), Renal (Dr. Akil Washington/ [place]). Pt improved slowly. Pt to be DC'ed home (otherwise pt would sign out AMA ) with outpatient office follow up this coming week; I recommended to patient to see own pain management doctor earlier this coming week and review medications for dose adjusment. Condition: Fair - Instructions Diet, Activity, Other Instructions: Resume diet See pain management this week Referrals: Venkat Gonzalez MD [Staff Physician] - (this week, needs labs f/u) Disposition: HOME - Home Medications Comprehensive Discharge Medication List: Ambulatory Orders THIS list might NOT be accurate RX: Duloxetine HCl [Cymbalta -] 60 mg PO DAILY #30 capsule. 03/10/15 RX: Albuterol 0.083% Nebulizer Cinthya [Ventolin 0.083% Nebulizer Soln -] 1 amp NEB Q4H PRN #1 amp 04/11/16 RX: Aspirin [ASA -] 81 mg PO DAILY tab.chew 04/11/16 RX: Budesonide/Formeterol Fumarate [SYMBICORT 80/4.5mcg -] 2 puff IH BID #1 inhaler 04/11/16 RX: Ranitidine [Zantac -] 150 mg PO DAILY 05/27/16 RX: Gabapentin [Neurontin -] 800 mg PO TID capsule 05/28/16 RX: Aclidinium [place] [Tudorza -] 1 puff IH DAILY inhaler 07/20/16 RX: Lactobacillus Acidophilus [Bacid -] 1 each PO DAILY #30 capsule 07/20/16 RX: Metoclopramide HCl [Reglan -] 10 mg PO ACHS tablet 07/20/16 RX: Acetaminophen [Tylenol .Regular Strength -] 650 mg PO Q6H PRN #0 tablet RX: Hydroxychloroquine So4 [Plaquenil -] 200 mg PO BID tablet 07/31/16 RX: Pantoprazole Sodium [Protonix -] 40 mg PO BID tablet.ec 07/31/16 RX: Cyclobenzaprine HCl [Flexeril -] 5 mg PO BID PRN #20 tablet 09/16/16 RX: Lidocaine 5% Patch [Lidoderm -] 2 patch TP DAILY #60 patch 09/16/16 RX: Albuterol 2.5/Ipratropium 0.5 [Duoneb -] 1 amp NEB BID amp 12/17/16 RX: Multivitamins [Multivit ([facility] Form[facility])] 1 tab PO DAILY tab 12/17/16 RX: Magnesium Oxide [Mag-Ox -] 400 mg PO BID #30 tablet MDD 2 12/18/16 RX: Potassium Chloride [K-Dur -] 20 meq PO DAILY #30 tab 12/18/16 RX: Bisacodyl Suppository [Dulcolax Suppository -] 10 mg RC DAILY PRN #0 supp.rect 01/01/17 RX: Metronidazole [Flagyl -] 500 mg PO TID #15 tablet 01/01/17
[2017-03-30 15:10] VITALS: BP 101/68; PULSE 88; TEMP 97.8
== END 2017-03-30 15:44 | disposition left against medical advice (07) | DRG 683 ==
LOC: JER 12:15 → JERBED 16:33 → J4W 18:51
PROVIDERS: ADMIT Specialist; ATTEND Specialist
DX: N17.9 Acute kidney failure, unspecified (principal); E87.1 Hypo-osmolality and hyponatremia; E46 Unspecified protein-calorie malnutrition; Z68.1 Body mass index [BMI] 19.9 or less, adult; J44.9 Chronic obstructive pulmonary disease, unspecified; E86.0 Dehydration; F11.129 Opioid abuse with intoxication, unspecified; K22.70 Barrett's esophagus without dysplasia; K57.90 Diverticulosis of intestine, part unspecified, without perforation or abscess without bleeding; K59.00 Constipation, unspecified; E03.9 Hypothyroidism, unspecified; M34.1 CR(E)ST syndrome; K31.84 Gastroparesis
CPT/HCPCS: 36415; 70450-TC; 71010-TC; 74176-TC; 80053; 81003; 81015; 83690; 83735; 83930; 83935; 84100; 84300; 85025; 85027; 93005; 93010; 94640; 99284-25

== ENCOUNTER 2017-04-25 10:34 | Inpatient (IN) | payer OTHER ==
[2017-04-25] MEDS ORDERED: NALOXONE HCL 0.4 MG/ML VIAL ONE (10:52)
[2017-04-25] MEDS ORDERED: RAPID SEQUENCE INTUBATION KIT NR ONE (10:53)
[2017-04-25] MEDS ORDERED: morphine CARPU-JECT 4 MG/1 ML DISP.SYRIN ONE ×2 (10:54→10:55)
[2017-04-25] MEDS ORDERED: PROPOFOL 100 ML ONE (11:03)
[2017-04-25] MEDS: PROPOFOL 100 ML IVPB SCH ×2 (11:05→16:59)
--- NOTE | 2017-04-25 11:16 | PDOC ---
History of Present Illness - General History Source: EMS Exam Limitations: Clinical Condition, Unresponsive - History of Present Illness Initial Comments: 04/25/17 13:29 52 year old female, with a significant past medical history of COPD, CHF, narcotic abuse, HLD, asthma, scleroderma, gastroparesis, Raynauds, CREST syndrome, hypothyroidism, and chronic aspiration PNA with drug resistance, who presents to the emergency department via EMS found unresponsive at home. Per EMS , the patient was given Narcan. En route to the ED, patient had a seizure that lasted 20 seconds. Limited history due to state of patient on arrival. 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) CVA: No COPD: Yes CHF: No Dementia: No Diabetes: No GI Disorders: Yes (REFLUX, Bonner's Esophagus) Disorders: No HTN: No (low bp) Hypercholesterolemia: Yes Liver Disease: No Seizures: No Thyroid Disease: Yes (HYPO.) - Surgical History Abdominal Surgery: Yes (Yes, Exp lapartomy) Appendectomy: Yes Cardiac Surgery: No Cholecystectomy: No Lung Surgery: No Neurologic Surgery: Yes (LS/RODS &BONE FUSIONS) Orthopedic Surgery: Yes (multiple back sx, hand sx,b/o hip) - Immunization History Immunization Up to Date: Yes - Psycho/Social/Smoking Cessation Hx Anxiety: No Suicidal Ideation: No Smoking Status: No Smoking History: Former smoker Have you smoked in the past 12 months: Yes Number of Cigarettes Smoked Daily: 10 If you are a former smoker, when did you quit?: 4 years ago Information on smoking cessation initiated: No 'Breaking Loose' booklet given: 03/26/17 Hx Alcohol Use: No Drug/Substance Use Hx: No Substance Use Type: None Hx Substance Use Treatment: Yes <Karel Argueta - Last Filed: 04/25/17 13:51> - Past Medical History Allergies/Adverse Reactions: Allergies Allergy/AdvReac Type Severity Reaction Status Date / Time Penicillins Allergy Severe Hives Verified 04/25/17 10:48 tomato AdvReac Uncoded 04/25/17 10:48 Home Medications: Ambulatory Orders Duloxetine HCl [Cymbalta -] 60 mg PO DAILY #30 capsule. 03/10/15 Albuterol 0.083% Nebulizer Cinthya [Ventolin 0.083% Nebulizer Soln -] 1 amp NEB Q4H PRN #1 amp 04/11/16 Aspirin [ASA -] 81 mg PO DAILY tab.chew 04/11/16 Budesonide/Formeterol Fumarate [SYMBICORT 80/4.5mcg -] 2 puff IH BID #1 inhaler 04/11/16 Ranitidine [Zantac -] 150 mg PO DAILY 05/27/16 Aclidinium [place] [Tudorza -] 1 puff IH DAILY inhaler 07/20/16 Lactobacillus Acidophilus [Bacid -] 1 each PO DAILY #30 capsule 07/20/16 Metoclopramide HCl [Reglan -] 10 mg PO ACHS tablet 07/20/16 Acetaminophen [Tylenol .Regular Strength -] 650 mg PO Q6H PRN #0 tablet Hydroxychloroquine So4 [Plaquenil -] 200 mg PO BID tablet 07/31/16 Pantoprazole Sodium [Protonix -] 40 mg PO BID tablet.ec 07/31/16 Lidocaine 5% Patch [Lidoderm -] 2 patch TP DAILY #60 patch 09/16/16 Albuterol 2.5/Ipratropium 0.5 [Duoneb -] 1 amp NEB BID amp 12/17/16 Multivitamins [Multivit ([facility])] 1 tab PO DAILY tab 12/17/16 Magnesium Oxide [Mag-Ox -] 400 mg PO BID #30 tablet MDD 2 12/18/16 Potassium Chloride [K-Dur -] 20 meq PO DAILY #30 tab 12/18/16 Bisacodyl Suppository [Dulcolax Suppository -] 10 mg RC DAILY PRN #0 supp.rect 01/01/17 Review of Systems - Review of Systems Able to Perform ROS?: No (unresponsive) <Maegan Prince - Last Filed: 04/25/17 13:40> *Physical Exam - Vital Signs Last Vital Signs Temp Pulse Resp BP Pulse Ox 109 H 19 107/77 100 04/25/17 11:32 04/25/17 11:28 04/25/17 10:35 04/25/17 11:32 - Physical Exam Comments: 04/25/17 13:29 GENERAL: unresponsive except to deep pain stimuli, emaciated HEAD: No signs of trauma EYES: PERRLA, EOMI, sclera anicteric, conjunctiva clear ENT: Auricles normal inspection, hearing grossly normal, nares patent, oropharynx clear without exudates. Moist mucosa NECK: Normal ROM, supple, no lymphadenopathy, JVD, or masses LUNGS: Noisy bilaterally with rhonchi, no wheezes HEART: Regular rate and rhythm, normal S1 and S2, no murmurs, rubs or gallops ABDOMEN: Distended, BS present. No guarding, no rebound. No masses EXTREMITIES: Normal range of motion, no edema. No clubbing or cyanosis. No cords, erythema, or tenderness NEUROLOGICAL: impossible, patient can't follow commands SKIN: Warm, Dry, poor turgor, no rashes or lesions noted. <Maegan Prince - Last Filed: 04/25/17 13:40> - Vital Signs Last Vital Signs Temp Pulse Resp BP Pulse Ox 133 H 44 H 107/77 77 L 04/25/17 10:35 04/25/17 10:35 04/25/17 10:35 04/25/17 10:35 <Karel Argueta - Last Filed: 04/25/17 13:51> ED Treatment Course - LABORATORY CBC & Chemistry Diagram: 04/25/17 12:40 04/25/17 12:40 - RADIOLOGY Radiograph Interpretation: 04/25/17 11:58 Chest X-Ray Reported by Dr. Doris Meehan Impression: ET tube with tip overlying the distal trachea. Mild increased density at the lung apices which may be directional and recommend clinical correlation. 04/25/17 12:49 Chest X-Ray Reported by Dr. Arpan Delgado Impression: Moderate pneumothorax is seen in inferolateral aspect of the right hemithorax, second pneumothorax is noted in the right upper hemithorax. The referring physician is aware of the findings. 04/25/17 13:35 Chest X-Ray Reported by Dr. Aubrey Brown Impression: Persistent right base pneumothorax following right chest tube insertion. <Maegan Prince - Last Filed: 04/25/17 13:40> - LABORATORY CBC & Chemistry Diagram: 04/25/17 12:40 04/25/17 12:40 <Karel Argueta - Last Filed: 04/25/17 13:51> Medical Decision Making - Critical Care Time Total Critical Care Time (minutes): 120 Critical Care Statement: The care of this patient involved high complexity decision making to prevent further life threatening deterioration of the patient 's condition and/or to evalute & treat vital organ system(s) failure or risk of failure. - Medical Decision Making 04/25/17 12:[address] Eva Gonzalez. [phone] 04/25/17 13:41 Procedures: see resident's note - Intubation - Right subclavian central line - 3 pig tail catheter/chest tube <Maegan Prince - Last Filed: 04/25/17 13:40> *DC/Admit/Observation/Transfer - Attestations Scribe Attestion: 04/25/17 13:34 Documentation prepared by Maegan Prince, acting as medical supply technician for Karel Argueta DO. <Maegan Prince - Last Filed: 04/25/17 13:40> - Discharge Dispostion Admit: Yes - Attestations Physician Attestion: 04/25/17 11:16 I, Dr. Karel Argueta, attest that this document has been prepared under my direction and personally reviewed by me in its entirety. I further attest, that it accurately reflects all work, treatment, procedures and medical decision -making performed by me. <Karel Argueta - Last Filed: 04/25/17 13:51> Diagnosis at time of Disposition: Sepsis associated hypotension, Respiratory failure - Discharge Dispostion Condition at time of disposition: Unchanged/Unknown
[2017-04-25] MEDS ORDERED: LORazepam 2 MG/ML SDV VIAL ONE (11:17)
[2017-04-25] MEDS ORDERED: VANCOMYCIN 1,000 MG in DEXTROSE 5%-WATER - 250 ML IVPB ONE (12:10)
[2017-04-25] MEDS ORDERED: LIDOCAINE HCL 2% (20ML MULTI-DOSE VIAL) NR ONE (12:29)
[2017-04-25] MEDS ORDERED: NOREPINEPHRINE BITARTRATE 8,000 MCG in DEXTROSE 5%-WATER - 492 ML IV SCH (12:30)
[2017-04-25 12:34] LABS: URINE APPEARANCE CLOUDY; URINE BLOOD NEGATIVE (NEGATIVE); URINE COLOR AMBER; URINE GLUCOSE (UA) NEGATIVE (NEGATIVE); URINE KETONE NEGATIVE (NEGATIVE); URINE LEUK ESTERASE NEGATIVE (NEGATIVE); URINE NITRITE NEGATIVE (NEGATIVE); URINE UROBILINOGEN NEGATIVE mg/dL (0.2-1.0)
[2017-04-25 12:40] LABS: URINE PROTEIN 1+ (NEGATIVE)
[2017-04-25 12:41] LABS: URINE BACTERIA RARE /hpf (NONE SEEN); URINE HYALINE CAST 92 /lpf; URINE MUCUS RARE; URINE RBC 6 /hpf (0-3); URINE WBC 4 /hpf (3-5)
[2017-04-25 12:47] LABS: BASOPHIL 0.3 % (0-2.0); EOSINOPHIL 0.1 % (0-4.5); MCH 26.7 pg (25.7-33.7); MCHC 33.1 g/dl (32.0-36.0); MEAN CELL VOLUME 80.7 fl (80-96); MEAN PLT VOLUME 7.8 fl (7.5-11.1); NEUTROPHILS 87.8 % (42.8-82.8); PLATELET COUNT 401 K/MM3 (134-434); RDW 17.1 % (11.6-15.6); WHITE BLOOD COUNT 9.4 K/mm3 (4.0-10.0)
[2017-04-25] MEDS ORDERED: PROPOFOL 200 MG/20 ML VIAL IVPUSH ONE (12:56)
[2017-04-25] MEDS ORDERED: morphine CARPU-JECT 10 MG/1 ML DISP.SYRIN IVPUSH ONE (12:56)
[2017-04-25] MEDS ORDERED: SUCCINYLCHOLINE CHLORIDE 200 MG/10 ML VIAL IVPUSH ONE (12:56)
[2017-04-25] MEDS ORDERED: ETOMIDATE 40 MG/20 ML VIAL IVPUSH ONE (12:56)
--- NOTE | 2017-04-25 12:57 | PDOC ---
History of Present Illness - General Chief Complaint: Altered Mental Status Stated Complaint: AMS Time Seen by Provider: 04/25/17 10:43 - History of Present Illness Initial Comments: 04/25/17 13:08 Patient is a 52 year old female with a history of scleroderma, COPD, CHF, narcotic abuse, HLD, asthma, gastroparesis, Raynauds, CREST syndrome, hypothyroidism, and chronic aspiration PNA with drug resistance who presents via EMS for AMS and respiratory distress. History is limited at the time due to patient's mental status. EMS reports a 20 second seizure en route to the ED and Narcan was given as well. Patient presents altered minimally responsive. Past History - Past Medical History Allergies/Adverse Reactions: Allergies Allergy/AdvReac Type Severity Reaction Status Date / Time Penicillins Allergy Severe Hives Verified 04/25/17 10:48 tomato AdvReac Uncoded 04/25/17 10:48 Home Medications: Ambulatory Orders Duloxetine HCl [Cymbalta -] 60 mg PO DAILY #30 capsule. 03/10/15 Albuterol 0.083% Nebulizer Cinthya [Ventolin 0.083% Nebulizer Soln -] 1 amp NEB Q4H PRN #1 amp 04/11/16 Aspirin [ASA -] 81 mg PO DAILY tab.chew 04/11/16 Budesonide/Formeterol Fumarate [SYMBICORT 80/4.5mcg -] 2 puff IH BID #1 inhaler 04/11/16 Ranitidine [Zantac -] 150 mg PO DAILY 05/27/16 Aclidinium [place] [Tudorza -] 1 puff IH DAILY inhaler 07/20/16 Lactobacillus Acidophilus [Bacid -] 1 each PO DAILY #30 capsule 07/20/16 Metoclopramide HCl [Reglan -] 10 mg PO ACHS tablet 07/20/16 Acetaminophen [Tylenol .Regular Strength -] 650 mg PO Q6H PRN #0 tablet Hydroxychloroquine So4 [Plaquenil -] 200 mg PO BID tablet 07/31/16 Pantoprazole Sodium [Protonix -] 40 mg PO BID tablet.ec 07/31/16 Lidocaine 5% Patch [Lidoderm -] 2 patch TP DAILY #60 patch 09/16/16 Albuterol 2.5/Ipratropium 0.5 [Duoneb -] 1 amp NEB BID amp 12/17/16 Multivitamins [Multivit ([facility])] 1 tab PO DAILY tab 12/17/16 Magnesium Oxide [Mag-Ox -] 400 mg PO BID #30 tablet MDD 2 12/18/16 Potassium Chloride [K-Dur -] 20 meq PO DAILY #30 tab 12/18/16 Bisacodyl Suppository [Dulcolax Suppository -] 10 mg RC DAILY PRN #0 supp.rect 01/01/17 Anemia: Yes Asthma: Yes Cancer: No 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, 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) CVA: No COPD: Yes CHF: No Dementia: No Diabetes: No GI Disorders: Yes (REFLUX, Bonner's Esophagus) Disorders: No HTN: No (low bp) Hypercholesterolemia: Yes Liver Disease: No Seizures: No Thyroid Disease: Yes (HYPO.) - Surgical History Abdominal Surgery: Yes (Yes, Exp lapartomy) Appendectomy: Yes Cardiac Surgery: No Cholecystectomy: No Lung Surgery: No Neurologic Surgery: Yes (LS/RODS &BONE FUSIONS) Orthopedic Surgery: Yes (multiple back sx, hand sx,b/o hip) - Immunization History Immunization Up to Date: Yes - Psycho/Social/Smoking Cessation Hx Anxiety: No Suicidal Ideation: No Smoking Status: No Smoking History: Former smoker Have you smoked in the past 12 months: Yes Number of Cigarettes Smoked Daily: 10 If you are a former smoker, when did you quit?: 4 years ago Information on smoking cessation initiated: No 'Breaking Loose' booklet given: 03/26/17 Hx Alcohol Use: No Drug/Substance Use Hx: No Substance Use Type: None Hx Substance Use Treatment: Yes Review of Systems - Review of Systems Able to Perform ROS?: No (Altered mental status) *Physical Exam - Vital Signs Last Vital Signs Temp Pulse Resp BP Pulse Ox 98.2 F 109 H 19 107/77 100 04/25/17 11:20 04/25/17 11:32 04/25/17 11:28 04/25/17 10:35 04/25/17 11:49 - Physical Exam Comments: 04/25/17 17:33 General Appearance: Severe Distress, Thin and Malnourished HEENT: No Pharyngeal Erythema, Tonsillar Exudate, Tonsillar Erythema Respiratory/Chest: Diffuse crackles ascultated on exam with increased respiratory effort. Cardiovascular: Regular Rhythm, Tachycardia. No Murmur, Gallop/S3, Gallop/S4 Gastrointestinal/Abdominal: Normal Bowel Sounds, Soft. No Guarding, Rebound, Tenderness Extremity: Cyanosis Integumentary: Cyanotic, Clubbing in the extremities. Neurologic: Responsive only to painful stimulus. Unable to assess cranial nerves. Procedures - Central Line Central Line Lumen: triple Central Line Position: subclavian (R) Anesthesia: 1% Lidocaine Amount of anesthesia (ccs): 6 Complications: Pnuemothorax Post Central Line Insertion: sutured, good blood return, position confirmed w/ CXR - Intubation Intubation Method: orotracheal Blade used: Mac Tube Size (Fr): 7.0 Medications: Etomidate, Morphine, Succinylcholine Tube position confirmed by: Direct visualization, CO2 detector, Chest x-ray, Breath sounds Breath Sounds after Intubation: equal Intubation Complications: vomited, apparent aspiration Post Intubation Xray: Yes - Additional Procedures Additional Procedures: other (Pigtail Catheter Placed in the Mid axillary line at the 4th intercost[address] place. Skin was anestatized with 6ccs 1% Lidocaine. Air return confirmed and pigtail attached to vac and sutured in place. Placement confirmed with chest radiograph.) ED Treatment Course - LABORATORY CBC & Chemistry Diagram: 04/25/17 12:40 04/25/17 12:40 - ADDITIONAL ORDERS Additional order review: Laboratory Results 04/25/17 11:20 Urine Color Sharifa Urine Appearance Cloudy Urine pH 5.0 Urine Protein 1+ H Urine Glucose (UA) Negative Urine Ketones Negative Urine Blood Negative Urine Nitrite Negative Urine Bilirubin 2.0 Urine Urobilinogen Negative Ur Leukocyte Esterase Negative Urine RBC 6 Urine WBC 4 Ur Epithelial Cells Rare Urine Bacteria Rare Hyaline Casts 92 Urine Mucus Rare 04/25/17 12:40 RBC 3.56 L MCV 80.7 MCHC 33.1 RDW 17.1 H MPV 7.8 D Neutrophils % 87.8 H Lymphocytes % 6.3 L D Monocytes % 5.5 Eosinophils % 0.1 Basophils % 0.3 - RADIOLOGY Radiology Studies Ordered: Category Date Time Status CHEST X-RAY PORTABLE* [RAD] Stat Radiology 04/25/17 10:43 Completed Medical Decision Making - Critical Care Time Total Critical Care Time (minutes): 120 Critical Care Statement: The care of this patient involved high complexity decision making to prevent further life threatening deterioration of the patient 's condition and/or to evalute & treat vital organ system(s) failure or risk of failure. - Medical Decision Making 04/25/17 17:18 Patient is a 52 year old female with a history of scleroderma, COPD, CHF, narcotic abuse, HLD, asthma, gastroparesis, Raynauds, CREST syndrome, hypothyroidism, and chronic aspiration PNA with drug resistance who presents with AMS. Differential includes but is not limited to: Sepsis, pneumonia, respiratory failure, opioid overdose, metabolic derangement. Patient was in critical condition upon arrival requiring intubation. Vascular access was difficult to obtain and thus a IO in the left tibia was placed. Patient was then successfully intubated on the first attempt with a 7.0 tube. Patient vomited during the procedure and is presumed to have aspirated. ET tube placement was confirmed with chest radiograph. A right subclavian central line was placed due to the patient only having IO access at the time. Post chest radiograph demonstrated a large pneumothorax. We then placed a right pigtail catheter to help relieve the pneumothorax. We will also send a full set of sepsis labs. 04/25/17 17:25 The patient was discussed with Dr. Gonzalez and Dr. Owens and was accepted for admission to ICU. 04/25/17 17:26 Patient's family presented to the ED and reported that the patient went upstairs of their house to smoke and fell down 14 steps before they called EMS. We will put in for a head, cervical, chest, abdomen, and pelvis CT scan before she moves to the ICU. *DC/Admit/Observation/Transfer Diagnosis at time of Disposition: Sepsis associated hypotension Respiratory failure Qualifiers: Chronicity: acute Respiratory failure complication: unspecified whether with hypoxia or hypercapnia Qualified Code(s): J96.00 - Acute respiratory failure, unspecified whether with hypoxia or hypercapnia - Discharge Dispostion Condition at time of disposition: Critical Admit: Yes - Attestations Physician Attestion: 04/25/17 17:35 I, Dr. Luis A Ashford, attest that this document has been prepared under my direction and personally reviewed by me in its entirety. I further attest, that it accurately reflects all work, treatment, procedures and medical decision -making performed by me.
[2017-04-25 12:59] LABS: INR 1.43 (0.82-1.09); PROTHROMBIN TIME (PATIENT) 15.9 SEC (9.98-11.88)
[2017-04-25] MEDS ORDERED: SODIUM CHLORIDE 1,000 ML IV STA ×2 (13:00→13:38)
[2017-04-25 13:02] LABS: ACTIVATED PTT 30.4 SECONDS (26.9-34.4)
[2017-04-25] MEDS ORDERED: ETOMIDATE 20 MG/10 ML AMPUL IVPUSH ONE (13:03)
[2017-04-25] MEDS: SODIUM CHLORIDE 1,000 ML IV SCH ×2 (13:06→17:02)
[2017-04-25 13:10] LABS: VENOUS PH 7.54 (7.32-7.42)
[2017-04-25 13:13] LABS: ALBUMIN 2.5 g/dl (3.4-5.0); BILIRUBIN,TOTAL 0.5 mg/dL (0.2-1.0); CALCIUM 7.5 mg/dL (8.5-10.1); CREATININE 2.8 mg/dL (0.55-1.02); GLUCOSE,RANDOM 112 mg/dL (74-106); SGOT/AST 19 U/L (15-37); SGPT/ALT 23 U/L (12-78); TOT PROT 6.3 g/dl (6.4-8.2)
[2017-04-25 13:14] LABS: VENOUS BLOOD GAS HCO3 57.8 meq/L (19-25)
[2017-04-25] MEDS ORDERED: VANCOMYCIN 1 GRAM (PRE-DOCKED) 250 ML IVPB ONE (13:14)
[2017-04-25 13:16] LABS: ALK PHOS 51 U/L (45-117); CPK 89 IU/L (26-192); TROPONIN I < 0.02 ng/ml (0.00-0.05)
[2017-04-25 13:28] LABS: ANION GAP 10 (8-16); CO2 58 mmol/L (21-32)
[2017-04-25 13:32] LABS: HIV 1 & 2 AB NEGATIVE; HIV 1 AGp24 NEGATIVE
[2017-04-25 14:38] LABS: ARTERIAL BLD GAS O2 SATURATION 99.7 % (90-98.9); ARTERIAL BLOOD GAS BASE EXCESS 27.7 meq/l (-2-2); ARTERIAL BLOOD GAS pH 7.56 (7.35-7.45)
[2017-04-25 14:40] LABS: ALLENS TEST POSITIVE; ART PUNCT SITE RIGHT RADIAL; LPM/O2% 100%; MECH. VENT. YES; METHEMOGLOBIN 1.2 % (0.4-1.5); PT. ON O2? YES; TYPE OF O2 VENT; VT/PRESS 450
[2017-04-25 14:41] LABS: VENT RATE 14
[2017-04-25 14:47] LABS: ARTERIAL BLOOD GAS HCO3 55.5 meq/L (22-26)
--- NOTE | 2017-04-25 15:07 | EKG ---
Test Reason : Blood Pressure : / mmHG Vent. Rate : 105 BPM Atrial Rate : 105 BPM P-R Int : 122 ms QRS Dur : 074 ms QT Int : 382 ms P-R-T Axes : 078 072 047 degrees QTc Int : 504 ms SINUS TACHYCARDIA NONSPECIFIC ST ABNORMALITY ABNORMAL ECG WHEN COMPARED WITH ECG OF 26-MAR-2017 18:43, QT HAS SHORTENED Confirmed by OSMANY FRENCH MD ([id number]) on 04/25/2017 3:07:30 PM Referred By: Confirmed By:OSMANY FRENCH MD
--- NOTE | 2017-04-25 16:22 | PROC ---
Chest Tube Insertion Consent on Chart: No (emergency. Impending tension ) Risks and Benefits Explained: No Chest tube #1 Indication: Pneumothorax Chest Tube Location: Right Lateral Anesthesia: 1% Lidocaine Size (Fr.): 24 Sterile Technique: Yes Tube Sutured to Skin: Yes Vaseline gauze dressing: Yes Chest Tube Collection System: Pleur-Evac Suction: Yes Drainage, Color/Appearance: Sanguinous Amount (ml): 10 Remarks: Patient had pigtail placed after a pneumothorax developed from central line placement. pigtail was not adequate enough to resolve the pnemothorax. Concern for impending tension pneumothorax. Emergent 24fr chest tube placed under sterile conditions.
--- NOTE | 2017-04-25 17:50 | HP ---
Admitting History and Physical - Primary Care Physician PCP: Venkat Gonzalez - Admission Chief Complaint: AMS History of Present Illness: Pt was BIBEMS to ER with AMS; pt received Narcan by EMS with minimal responsiveness in ER. Pt was intubated in ER; it seems that pt vomited during intubation. Due to poor IV access right subclavian TLC was placed in ER; subsequent CXR showed large right side pneumothorax and right side chest tube was placed. Pt was admitted to ICU. Per ER documentation (as per family) pt fell down the stairs ,in her house, 14 steps. 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 Normal coronaries on cardiac cath and EF 65% with mild AI, trace MR and TR on echo @ [facility] [place] 03/31) Pulmonary: Yes: Asthma, COPD, Pneumonia, Other (lung mass of undetermined etiology) Gastrointestinal: Yes: Constipation, Diverticulitis, Diverticulosis (small bowel diverticular perforation, scleroderma affecting the esophagus, Bonner's esophagus, Schatzki ring,, antral ulcer, gastroparesis related to scleroderma), GERD (with long segment Bonner's esophagus and patent Schatzki ring), Peptic Ulcer Disease (antral ulcer ), Other (Bonner's esophagus, GERD, Schatzki ring, perforation of small bowel diverticulum, antral ulcer, scleroderma causing esophageal dysmotility and gastroparesis, GERD with long segment Bonner's esophagus,Schatzki ring,GAVE syndrome) Renal/: Yes: Renal Failure Heme/Onc: Yes: Anemia Infectious Disease: Yes: MRSA (bursitis) Psych: Yes: Addictions (marijuana,tobacco and prescription narcotics) Musculoskeletal: Yes: Chronic low back pain, Other (has spinal stimulator) Rheumatology: Yes: Vasculitis, Other (Scleroderma, Raynauds and CREST syndrome) Endocrine: Yes: Hypothyroidism, Other (Malnutrition, osteoporosis) Dermatology: Yes: Cellulitis - Past Surgical History Past Surgical History: Yes: Appendectomy, Colonoscopy, Upper Endoscopy - Smoking History Smoking history: Former smoker Have you smoked in the past 12 months: Yes Aproximately how many cigarettes per day: 10 If you are a former smoker, when did you quit?: 4 years ago - Alcohol/Substance Use Hx Alcohol Use: No History of Substance Use: reports: Marijuana, Prescription - Social History ADL: Independent Occupation: disabled History of Recent Travel: No Home Medications - Allergies Allergies/Adverse Reactions: Allergies Allergy/AdvReac Type Severity Reaction Status Date / Time Penicillins Allergy Severe Hives Verified 04/25/17 10:48 tomato AdvReac Uncoded 04/25/17 10:48 - Home Medications Home Medications: Ambulatory Orders Duloxetine HCl [Cymbalta -] 60 mg PO DAILY #30 capsule.dr 03/10/15 Albuterol 0.083% Nebulizer Cinthya [Ventolin 0.083% Nebulizer Soln -] 1 amp NEB Q4H PRN #1 amp 04/11/16 Aspirin [ASA -] 81 mg PO DAILY tab.chew 04/11/16 Budesonide/Formeterol Fumarate [SYMBICORT 80/4.5mcg -] 2 puff IH BID #1 inhaler 04/11/16 Ranitidine [Zantac -] 150 mg PO DAILY 05/27/16 Aclidinium [place] [Tudorza -] 1 puff IH DAILY inhaler 07/20/16 Lactobacillus Acidophilus [Bacid -] 1 each PO DAILY #30 capsule 07/20/16 Metoclopramide HCl [Reglan -] 10 mg PO ACHS tablet 07/20/16 Acetaminophen [Tylenol .Regular Strength -] 650 mg PO Q6H PRN #0 tablet Hydroxychloroquine So4 [Plaquenil -] 200 mg PO BID tablet 07/31/16 Pantoprazole Sodium [Protonix -] 40 mg PO BID tablet.ec 07/31/16 Lidocaine 5% Patch [Lidoderm -] 2 patch TP DAILY #60 patch 09/16/16 Albuterol 2.5/Ipratropium 0.5 [Duoneb -] 1 amp NEB BID amp 12/17/16 Multivitamins [Multivit ([facility] Formulary)] 1 tab PO DAILY tab 12/17/16 Magnesium Oxide [Mag-Ox -] 400 mg PO BID #30 tablet MDD 2 12/18/16 Potassium Chloride [K-Dur -] 20 meq PO DAILY #30 tab 12/18/16 Bisacodyl Suppository [Dulcolax Suppository -] 10 mg RC DAILY PRN #0 supp.rect 01/01/17 Family Disease History - Family Disease History Family Disease History: Diabetes: Father (HCV), Heart Disease: Father, Mother, Other: Father, Brother (HIV) Review of Systems Unable to obtain ROS, reason: pt is intubated, sedated Physical Examination Vital Signs: Vital Signs Temperature 98 F 04/25/17 13:39 Pulse Rate 79 04/25/17 14:33 Respiratory Rate 14 04/25/17 14:33 Blood Pressure 121/93 04/25/17 14:33 O2 Sat by Pulse Oximetry (%) 100 04/25/17 14:33 Findings/Remarks: Pt is intubated, has OGT, right side subckvian TLC, right side chest tube, Collier catheter. Pt in on Propofol, IVF, Norepinephrine Constitutional: Yes: Other (Intubated) Eyes: Yes: Conjunctiva Clear, Other (PER, miotic) HENT: Yes: Other (ETT is present). No: Epistaxis, Rhinnorhea Cardiovascular: Yes: Regular Rate and Rhythm, S1, S2 Respiratory: Yes: Regular, Rales Gastrointestinal: Yes: Normal Bowel Sounds, Soft. No: Palpable Mass ...Rectal Exam: Yes: Deferred Breast(s): Yes: Other (deferred) Edema: No Integumentary: Yes: Other (right suclavian TLC is present Right side chest tube is present.) Neurological: Yes: Other (sedated) Labs: reviewed. Imaging - Results Chest X-ray: Report Reviewed, Image Reviewed Cat Scan: Report Reviewed Problem List - Problems (1) Altered mental status Code(s): R41.82 - ALTERED MENTAL STATUS, UNSPECIFIED (2) Acute renal failure Code(s): N17.9 - ACUTE KIDNEY FAILURE, UNSPECIFIED Qualifiers: Acute renal failure type: unspecified Qualified Code(s): N17.9 - Acute kidney failure, unspecified (3) Acute respiratory failure Code(s): J96.00 - ACUTE RESPIRATORY FAILURE, UNSP W HYPOXIA OR HYPERCAPNIA Qualifiers: Respiratory failure complication: hypercapnia Qualified Code(s): J96.02 - Acute respiratory failure with hypercapnia (4) Pneumothorax on right Code(s): J93.9 - PNEUMOTHORAX, UNSPECIFIED (5) S/P chest tube placement Code(s): Z93.8 - OTHER ARTIFICIAL OPENING STATUS (6) Hypokalemia Code(s): E87.6 - HYPOKALEMIA (7) Seizure Code(s): R56.9 - UNSPECIFIED CONVULSIONS (8) Hypotension Code(s): I95.9 - HYPOTENSION, UNSPECIFIED (9) COPD (chronic obstructive pulmonary disease) Code(s): J44.9 - CHRONIC OBSTRUCTIVE PULMONARY DISEASE, UNSPECIFIED Assessment/Plan Pt with multiple comorbidities at baseline, now admitted with AMS , s/p fall, withnessed seisure, in acute respiratory failure s/p intubation, right side large pneumothorax (possible secondary to TLC placement as 1-st CXR w/o pneumothorax), hypotension, possible aspiration PNA. Pt was admitted to ICU. IVF Pressors ( at baseline SBP in 90's) IV abtx Correct electrolytes abnormalities. DVT and GI proxylasis AM labs. CCM, Neuro, Renal, ID consult. Prognosis: poor. Time spent for managing pt's care: over 75 min
--- NOTE | 2017-04-25 20:26 | CONSULT ---
Consult Consult Specialty:: Critical Care Reason for Consultation:: Altered Mental Status, Shock - History of Present Illness Chief Complaint: Acute respiratory failure, altered mental status, shock History of Present Illness: This is a 52-year-old female with a past medical history of COPD, CHF, narcotic abuse, HLD, asthma, scleroderma, gastroparesis, Raynaud's, CREST syndrome, gastroparesis, hypothyroidism, and MDR PNAs who was found unresponsive at home brought into the ED by EMS with 20-second seizure en route intubated in the ED with c/c/b PTX in the setting of CVL placement s/p CT now being admitted to the ICU with altered mental status, hypoxic respiratory failure, and shock. Briefly, per reports the patient was found unresponsive at home and EMS was activated by family. There is report that the family told ED physicians that Ms. Rider had fallen down 14 stairs (timeline unclear). EMS was activated and she was unresponsive for which she was given Narcan without improvement. She had a 20-second seziure en route and was brought to the ED. She was intubated for airway protection in the setting of being unresponsive. As per report she likely aspirated upon induction for which a gastric tube was placed. She was hypotensive with poor IV access so initially a R IO was placed and later a R SC CVL. Central line placement was complicated by a PTX on post-procedure CXR for which a pigtail was placed. Labs in the ED were notable for WBC 9.4, Hgb 9.5, INR 1.4, Cr 2.8 (baseline normal per records). She was given a dose of Vanc and ball-cultured. CT head, neck, chest, A/P was completed prior to being admitted to the ICU which was unrevealing (except for PTX which had been visualized on CXR). She is being admitted to the ICU for further management. Upon arrival to ICU a R CT was placed (pigtail D/C'ed) with PTX resolution on CXR. She is RASS -5 on Propofol, with Norepinephrine infusing at 14 mcg/min for BP 84/49. She is on ACVC 14/375/60/0. STAT ABG and labs ordered. 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 Normal coronaries on cardiac cath and EF 65% with mild AI, trace MR and TR on echo @ [facility] [place] 03/31) Pulmonary: Yes: Asthma, COPD, Pneumonia, Other (lung mass of undetermined etiology) Gastrointestinal: Yes: Constipation, Diverticulitis, Diverticulosis (small bowel diverticular perforation, scleroderma affecting the esophagus, Bonner's esophagus, Schatzki ring,, antral ulcer, gastroparesis related to scleroderma), GERD (with long segment Bonner's esophagus and patent Schatzki ring), Peptic Ulcer Disease (antral ulcer ), Other (Bonner's esophagus, GERD, Schatzki ring, perforation of small bowel diverticulum, antral ulcer, scleroderma causing esophageal dysmotility and gastroparesis, GERD with long segment Bonner's esophagus,Schatzki ring,GAVE syndrome) Renal/: Yes: Renal Failure Infectious Disease: Yes: MRSA (bursitis) Psych: Yes: Addictions (marijuana,tobacco and prescription narcotics) Musculoskeletal: Yes: Chronic low back pain, Other (has spinal stimulator) Rheumatology: Yes: Vasculitis, Other (Scleroderma, Raynauds and CREST syndrome) Endocrine: Yes: Hypothyroidism, Other (Malnutrition, osteoporosis) Dermatology: Yes: Cellulitis - Past Surgical History Past Surgical History: Yes: Appendectomy, Colonoscopy, Upper Endoscopy - Alcohol/Substance Use Hx Alcohol Use: No History of Substance Use: reports: Marijuana, Prescription - Smoking History Smoking history: Former smoker Have you smoked in the past 12 months: Yes Aproximately how many cigarettes per day: 10 If you are a former smoker, when did you quit?: 4 years ago - Social History Usual Living Arrangement: With Parent ADL: Independent Occupation: disabled History of Recent Travel: No Home Medications - Allergies Allergies/Adverse Reactions: Allergies Allergy/AdvReac Type Severity Reaction Status Date / Time Penicillins Allergy Severe Hives Verified 04/25/17 10:48 tomato AdvReac Uncoded 04/25/17 10:48 - Home Medications Home Medications: Ambulatory Orders Duloxetine HCl [Cymbalta -] 60 mg PO DAILY #30 deshaun. 03/10/15 Albuterol 0.083% Nebulizer Cinthya [Ventolin 0.083% Nebulizer Soln -] 1 amp NEB Q4H PRN #1 amp 04/11/16 Aspirin [ASA -] 81 mg PO DAILY tab.chew 04/11/16 Budesonide/Formeterol Fumarate [SYMBICORT 80/4.5mcg -] 2 puff IH BID #1 inhaler 04/11/16 Ranitidine [Zantac -] 150 mg PO DAILY 05/27/16 Aclidinium [place] [Tudorza -] 1 puff IH DAILY inhaler 07/20/16 Lactobacillus Acidophilus [Bacid -] 1 each PO DAILY #30 capsule 07/20/16 Metoclopramide HCl [Reglan -] 10 mg PO ACHS tablet 07/20/16 Acetaminophen [Tylenol .Regular Strength -] 650 mg PO Q6H PRN #0 tablet Hydroxychloroquine So4 [Plaquenil -] 200 mg PO BID tablet 07/31/16 Pantoprazole Sodium [Protonix -] 40 mg PO BID tablet.ec 07/31/16 Lidocaine 5% Patch [Lidoderm -] 2 patch TP DAILY #60 patch 09/16/16 Albuterol 2.5/Ipratropium 0.5 [Duoneb -] 1 amp NEB BID amp 12/17/16 Multivitamins [Multivit ([facility] Formul[facility])] 1 tab PO DAILY tab 12/17/16 Magnesium Oxide [Mag-Ox -] 400 mg PO BID #30 tablet MDD 2 12/18/16 Potassium Chloride [K-Dur -] 20 meq PO DAILY #30 tab 12/18/16 Bisacodyl Suppository [Dulcolax Suppository -] 10 mg RC DAILY PRN #0 supp.rect 01/01/17 Family Disease History - Family Disease History Family History: Unable to Obtain (Mental Status) Family Disease History: Diabetes: Father (HCV), Heart Disease: Father, Mother, Other: Father, Brother (HIV) Review of Systems Unable to obtain ROS, reason: intubated and sedated Physical Exam Vital Signs: Vital Signs Temperature 98.4 F 04/25/17 18:14 Pulse Rate 74 04/25/17 18:14 Respiratory Rate 17 04/25/17 19:17 Blood Pressure 105/77 04/25/17 18:14 O2 Sat by Pulse Oximetry (%) 94 L 04/25/17 16:30 Constitutional: Yes: Thin Eyes: Yes: PERRL HENT: Yes: Atraumatic, Normocephalic Neck: Yes: Trachea Midline Cardiovascular: Yes: Regular Rate and Rhythm, S1, S2 Respiratory: Yes: CTA Bilaterally, Mechanically Ventilated Gastrointestinal: Yes: Normal Bowel Sounds, Soft Renal/: Yes: Collier Present Extremities: Yes: Cool Peripheral Pulses WNL: Yes Neurological: Yes: Unresponsive (RASS -5. Withdraws to pain in all extremities.) Labs: ABG Results ABG pH 7.51 (7.35-7.45) H 04/25/17 20:30 ABG pCO2 at Pt Temp 62.4 mmHg (35-45) H* 04/25/17 20:30 ABG pO2 at Pt Temp 53.8 mmHg (80-100) L D 04/25/17 20:30 ABG HCO3 49.5 meq/L (22-26) H* 04/25/17 20:30 ABG O2 Sat (Measured) 84.3 % (90-98.9) L 04/25/17 20:30 ABG O2 Content 11.0 % vol (15-22) L 04/25/17 20:30 ABG Base Excess 22.8 meq/l (-2-2) H* 04/25/17 20:30 CBC WBC 9.4 K/mm3 (4.0-10.0) 04/25/17 12:40 RBC 3.56 M/mm3 (3.60-5.2) L 04/25/17 12:40 Hgb 9.5 GM/dL (10.7-15.3) L 04/25/17 12:40 Hct 28.7 % (32.4-45.2) L 04/25/17 12:40 MCV 80.7 fl (80-96) 04/25/17 12:40 MCH 26.7 pg (25.7-33.7) 04/25/17 12:40 MCHC 33.1 g/dl (32.0-36.0) 04/25/17 12:40 RDW 17.1 % (11.6-15.6) H 04/25/17 12:40 Plt Count 401 K/MM3 (134-434) D 04/25/17 12:40 MPV 7.8 fl (7.5-11.1) D 04/25/17 12:40 Neutrophils % 87.8 % (42.8-82.8) H 04/25/17 12:40 Lymphocytes % 6.3 % (8-40) L D 04/25/17 12:40 Monocytes % 5.5 % (3.8-10.2) 04/25/17 12:40 Eosinophils % 0.1 % (0-4.5) 04/25/17 12:40 Basophils % 0.3 % (0-2.0) 04/25/17 12:40 CMP Sodium 130 mmol/L (136-145) L 04/25/17 12:40 Potassium 3.1 mmol/L (3.5-5.1) L 04/25/17 12:40 Chloride 62 mmol/L (98-107) L D 04/25/17 12:40 Carbon Dioxide 58 mmol/L (21-32) H D 04/25/17 12:40 Anion Gap 10 (8-16) 04/25/17 12:40 BUN 53 mg/dL (7-18) H D 04/25/17 12:40 Creatinine 2.8 mg/dL (0.55-1.02) H D 04/25/17 12:40 Creat Clearance w eGFR 17.68 (>60) 04/25/17 12:40 Random Glucose 112 mg/dL (74-106) H D 04/25/17 12:40 Lactic Acid 2.0 mmol/L (0.4-2.0) 04/25/17 14:27 Calcium 7.5 mg/dL (8.5-10.1) L 04/25/17 12:40 Total Bilirubin 0.5 mg/dL (0.2-1.0) D 04/25/17 12:40 AST 19 U/L (15-37) 04/25/17 12:40 ALT 23 U/L (12-78) D 04/25/17 12:40 Alkaline Phosphatase 51 U/L (45-117) D 04/25/17 12:40 Creatine Kinase 89 IU/L (26-192) 04/25/17 12:40 Troponin I < 0.02 ng/ml (0.00-0.05) 04/25/17 12:40 Total Protein 6.3 g/dl (6.4-8.2) L 04/25/17 12:40 Albumin 2.5 g/dl (3.4-5.0) L 04/25/17 12:40 Home Medication List Medication Instructions Recorded Confirmed Type Ranitidine [Zantac -] 150 mg PO DAILY 05/27/16 03/26/17 History Active Medications Generic Name Dose Route Start Last Admin Trade Name Shalom PRN Reason Stop Dose Admin Norepinephrine Bitartrate 8, 500 mls @ 18.75 mls/hr 04/25/17 12:30 04/25/17 18: 13 000 mcg/ Dextrose IV 14 mcg/min TITR RAISSA Titration Protocol 5 MCG/MIN Propofol 100 mls @ 0.953 mls/hr 04/25/17 13:00 04/25/17 18:13 Diprivan - IVPB 20 mcg/kg/min TITR RAISSA Titration Protocol 5 MCG/KG/MIN Sodium Chloride 1,000 mls @ 125 mls/hr 04/25/17 13:00 04/25/17 17:02 Normal Saline - IV 125 mls/hr ASDIR RAISSA Administration Vasopressin 50 units/ Sodium 100 mls @ 4.8 mls/hr 04/25/17 20:15 Chloride IVPB ASDIR RAISSA Protocol 2.4 UNITS/HR Meropenem 500 mg/ Dextrose 100 mls @ 200 mls/hr 04/25/17 20:55 IVPB 04/25/17 21:24 ONCE ONE Tobramycin Sulfate 80 mg/ 102 mls @ 100 mls/hr 04/25/17 20:58 Sodium Chloride IVPB 04/25/17 21:59 ONCE ONE Protocol MICRO Data Sputum: ordered Blood: pending Urine: ordered PRIOR MICRO Data Wound 11/30: Streptococcus viridans, Staph Coag Negative 08/31: Klebs PNA (S to Neal); E.Coli ESBL (S to Neal) Imaging - Results Chest X-ray: Report Reviewed, Image Reviewed X-ray: Report Reviewed Cat Scan: Report Reviewed Problem List - Problems (1) Respiratory failure Code(s): J96.90 - RESPIRATORY FAILURE, UNSP, UNSP W HYPOXIA OR HYPERCAPNIA Qualifiers: Chronicity: acute Respiratory failure complication: unspecified whether with hypoxia or hypercapnia Qualified Code(s): J96.00 - Acute respiratory failure, unspecified whether with hypoxia or hypercapnia (2) Acute renal failure Code(s): N17.9 - ACUTE KIDNEY FAILURE, UNSPECIFIED Qualifiers: Acute renal failure type: unspecified Qualified Code(s): N17.9 - Acute kidney failure, unspecified (3) Altered mental status Code(s): R41.82 - ALTERED MENTAL STATUS, UNSPECIFIED (4) Hypotension Code(s): I95.9 - HYPOTENSION, UNSPECIFIED Assessment/Plan A/P: This is a 52-year-old female with a past medical history of COPD, CHF, narcotic abuse, HLD, asthma, scleroderma, gastroparesis, Raynaud's CREST syndrome, hypothyroid, and MDR aspiration PNAs with altered mental status s/p fall at home brought in by EMS with seizure en route and initial course s/f acute hypoxic respiratory failure requiring intubation, acute kidney injury, shock requiring vasopressors and persistently altered mental status. Hypoxic Respiratory Failure likely in the setting of aspiration event (per report upon intubation) with c/c/b PTX now s/p CT placement with P:F currently 90 with history of MDR PNAs -LTVV (IBW 56 kg) -CT to suction -CXR PRN -Sedate for vent synchrony in the setting of hypoxia -ABX as below -ABGs PRN Shock most likely vasodilatory in the setting of sedation +/- sepsis now on Norepi 14 with CVP 3 - 1 L NS now given low CVP (cautious in the setting of hypoxia) - Levo for MAP > 60 - Add Vaso given high dose Levo - Sepsis dose steroids - Trend lactate - Trend CVP - TTE ID: Concern for infection in the setting of severe shock and unclear history if sick prodrome, with history of MDR PNAs - Vacn, Neal, Tobra empirically - ID consult in AM - Follow up ball culture - Narrow as able Altered Mental Status of unclear etiology? post-ictal in the setting of seizure v. toxic-metabolic v. narcotic abuse now sedated given hypoxia for vent synchrony s/p fall with CT head neg for acute bleed - Lighten sedation if hypoxia improves - UTox - Frequent neuro exams - Consider neuro consult - cEEG in AM Renal: Non-oliguric PRASHANT with Cr 2.8 (baseline 0.7) -1L NS now - Renally dose meds - Collier for strict Is and Os -Trend Cr and lytes - Urine electrolytes pending Endo: -FS -AISS GI: History of gastroparesis - NPO for now - TF when appropriate PPX Heparin sq Famotidine (vent) Total Critical Care Time 35 mins Suzanne OLMOS
[2017-04-25 20:40] LABS: ARTERIAL BLD GAS O2 SATURATION 84.3 % (90-98.9); ARTERIAL BLOOD GAS PO2 53.8 mmHg (80-100); ARTERIAL BLOOD GAS pH 7.51 (7.35-7.45)
[2017-04-25 20:41] LABS: ALLENS TEST POSITIVE; ART PUNCT SITE RIGHT BRACHIAL; ARTERIAL BLOOD GAS BASE EXCESS 22.8 meq/l (-2-2); ARTERIAL BLOOD GAS HCO3 49.5 meq/L (22-26); LPM/O2% 60%; MECH. VENT. Y; PT. ON O2? YES; TYPE OF O2 VENT; VENT RATE 14; VT/PRESS 375
[2017-04-25] MEDS ORDERED: SODIUM CHLORIDE 0.9% 1000 ML INFUS.BAG IV ONE (20:52)
[2017-04-25] MEDS ORDERED: MEROPENEM 500 MG in DEXTROSE 5%-WATER - 100 ML IVPB ONE (20:55)
[2017-04-25] MEDS ORDERED: NOREPINEPHRINE BITARTRATE 4 MG/4 ML ML IV ONE (20:56)
[2017-04-25] MEDS ORDERED: TOBRAMYCIN SULFATE 80 MG in SODIUM CHLORIDE 100 ML IVPB ONE (20:58)
[2017-04-25 21:02] LABS: BASOPHIL 0.1 % (0-2.0); EOSINOPHIL 0.6 % (0-4.5); MCH 27.2 pg (25.7-33.7); MCHC 33.2 g/dl (32.0-36.0); MEAN CELL VOLUME 81.9 fl (80-96); MEAN PLT VOLUME 7.7 fl (7.5-11.1); NEUTROPHILS 85.3 % (42.8-82.8); PLATELET COUNT 421 K/MM3 (134-434); RDW 17.4 % (11.6-15.6); WHITE BLOOD COUNT 6.5 K/mm3 (4.0-10.0)
[2017-04-25 21:35] LABS: CREATININE 1.6 mg/dL (0.55-1.02); GLUCOSE,RANDOM 107 mg/dL (74-106); MAGNESIUM 1.1 mg/dL (1.8-2.4); PHOSPHOROUS 4.1 mg/dL (2.5-4.9)
[2017-04-25] MEDS ORDERED: FAMOTIDINE 20 MG/50 ML IVPB 50 ML IVPB ONE (21:38)
[2017-04-25 21:52] LABS: ANION GAP 5 (8-16); CO2 49 mmol/L (21-32)
[2017-04-25 21:53] LABS: CALCIUM 6.8 mg/dL (8.5-10.1)
[2017-04-25] MEDS ORDERED: CALCIUM GLUCONATE 10% - 1,000 MG/10 ML VIAL IVPB ONE (22:06)
[2017-04-25 22:11] LABS: OSMOLALITY,SERUM 286 mosm/kg (278-305)
[2017-04-25] MEDS ORDERED: MAGNESIUM SULF 50% (8.12 MEQ/2 ML-1 GM VIAL) IVPB ONE (22:11)
[2017-04-25] MEDS: HYDROCORTISONE SOD SUCCINATE 100 MG/2 ML VIAL IVPB SCH (22:29)
[2017-04-25] MEDS: KCL 10 MEQ IVPB 100 ML IVPB SCH (22:30)
[2017-04-25] MEDS: HEPARIN NA (PORCINE) 5,000 UNITS/ML 1ML VIAL SQ SCH (22:32)
[2017-04-26] MEDS: KCL 10 MEQ IVPB 100 ML IVPB SCH ×4 (00:01→13:46)
[2017-04-26 00:23] LABS: SODIUM,RANDOM URINE 27 MMOL/L; URINE MARIJUANA THC NEGATIVE ng/ml (CUTOFF=50)
[2017-04-26 00:26] LABS: URINE CREATININE 27.2 mg/dL (20-320)
[2017-04-26] MEDS ORDERED: VASOPRESSIN 20 UNITS/ML VIAL IV ONE ×2 (03:23→20:03)
[2017-04-26] MEDS: HYDROCORTISONE SOD SUCCINATE 100 MG/2 ML VIAL IVPB SCH ×4 (04:24→21:00)
[2017-04-26] MEDS: VASOPRESSIN 50 UNITS in SODIUM CHLORIDE 97.5 ML IVPB SCH ×2 (04:25→20:46)
[2017-04-26 06:04] LABS: MCH 27.2 pg (25.7-33.7); MEAN CELL VOLUME 82.3 fl (80-96); MEAN PLT VOLUME 8.2 fl (7.5-11.1); PLATELET COUNT 334 K/MM3 (134-434); RDW 17.1 % (11.6-15.6); WHITE BLOOD COUNT 7.8 K/mm3 (4.0-10.0)
[2017-04-26 06:16] LABS: INR 1.64 (0.82-1.09); PROTHROMBIN TIME (PATIENT) 18.2 SEC (9.98-11.88)
[2017-04-26 06:19] LABS: ACTIVATED PTT 33.5 SECONDS (26.9-34.4)
[2017-04-26 06:22] LABS: ALBUMIN 1.8 g/dl (3.4-5.0); ANION GAP 6 (8-16); CO2 39 mmol/L (21-32); GLUCOSE,RANDOM 122 mg/dL (74-106); MAGNESIUM 1.9 mg/dL (1.8-2.4)
[2017-04-26 06:26] LABS: ALK PHOS 41 U/L (45-117); BILIRUBIN,TOTAL 0.3 mg/dL (0.2-1.0); CREATININE 0.9 mg/dL (0.55-1.02); PHOSPHOROUS 3.7 mg/dL (2.5-4.9); SGOT/AST 16 U/L (15-37); SGPT/ALT 18 U/L (12-78); TOT PROT 4.8 g/dl (6.4-8.2)
[2017-04-26 06:40] LABS: CALCIUM 6.7 mg/dL (8.5-10.1)
--- NOTE | 2017-04-26 07:25 | PN ---
Progress Note, Physician Chief Complaint: ID Patient well known to me from multiple prior admissions COPD Scleroderma and opiate abuse with prior admission for PNA Intubated now - Current Medication List Current Medications: Active Medications Heparin Sodium (Porcine) (Heparin -) 5,000 unit SQ BID RAISSA Last Admin: 04/25/17 22:32 Dose: 5,000 unit Hydrocortisone Sodium Succinate (Solu-Cortef -) 50 mg IVPB Q6H-IV RAISSA Last Admin: 04/26/17 04:24 Dose: 50 mg Norepinephrine Bitartrate 8, (000 mcg/ Dextrose) 500 mls @ 18.75 mls/hr IV TITR RAISSA; 5 MCG/MIN PRN Reason: Protocol Last Titration: 04/25/17 18:13 Dose: 14 mcg/min Propofol (Diprivan -) 100 mls @ 0.953 mls/hr IVPB TITR RAISSA; 5 MCG/KG/MIN PRN Reason: Protocol Last Titration: 04/25/17 18:13 Dose: 20 mcg/kg/min Sodium Chloride (Normal Saline -) 1,000 mls @ 125 mls/hr IV ASDIR RAISSA Last Admin: 04/25/17 17:02 Dose: 125 mls/hr Vasopressin 50 units/ Sodium (Chloride) 100 mls @ 4.8 mls/hr IVPB ASDIR RAISSA; 2.4 UNITS/HR PRN Reason: Protocol Last Admin: 04/26/17 04:25 Dose: 4.8 mls/hr - Objective Vital Signs: Vital Signs Temperature 98.6 F 04/26/17 06:00 Pulse Rate 61 04/26/17 06:00 Respiratory Rate 14 04/26/17 06:14 Blood Pressure 98/64 04/26/17 06:00 O2 Sat by Pulse Oximetry (%) 94 L 04/25/17 16:30 Labs: CBC, BMP 04/26/17 05:20 04/26/17 05:20 INR, PTT INR 1.64 (0.82-1.09) H 04/26/17 05:20 Problem List - Problems (1) Altered mental status Code(s): R41.82 - ALTERED MENTAL STATUS, UNSPECIFIED (2) Respiratory failure Code(s): J96.90 - RESPIRATORY FAILURE, UNSP, UNSP W HYPOXIA OR HYPERCAPNIA Qualifiers: Chronicity: acute Respiratory failure complication: unspecified whether with hypoxia or hypercapnia Qualified Code(s): J96.00 - Acute respiratory failure, unspecified whether with hypoxia or hypercapnia (3) Seizure Code(s): R56.9 - UNSPECIFIED CONVULSIONS Assessment/Plan Microbiology Laboratory Tests 04/25/17 04/25/17 04/25/17 11:20 12:40 12:40 WBC 9.4 Hgb 9.5 L Hct 28.7 L Plt Count 401 D ABG pH ABG pCO2 at Pt Temp ABG pO2 at Pt Temp Urine RBC 6 Urine WBC 4 Opiates Screen HIV 1&2 Antibody Screen Negative HIV P24 Antigen Negative 04/25/17 04/25/17 20:30 23:00 WBC Hgb Hct Plt Count ABG pH 7.51 H ABG pCO2 at Pt Temp 62.4 H* ABG pO2 at Pt Temp 53.8 L D Urine RBC Urine WBC Opiates Screen Positive HIV 1&2 Antibody Screen HIV P24 Antigen Assessment Suspect Opiate overdose leading to seizure with respiratory failure I do not see clear cut infiltrate No fever normal lactic acid normal WBC. However on pressors so will empirically treat for ? sepsis aspiration with ? ESBL she has had before Ertepenem. Plan Cultures Ertepenem Contact isolation Nicolasa CAVAZOS
[2017-04-26 07:45] LABS: ARTERIAL BLD GAS O2 SATURATION 98.2 % (90-98.9); ARTERIAL BLOOD GAS BASE EXCESS 13.3 meq/l (-2-2)
[2017-04-26 07:48] LABS: ALLENS TEST POSITIVE; ART PUNCT SITE RIGHT BRACHIAL; LPM/O2% 50%; MECH. VENT. YES; PT. ON O2? YES; TYPE OF O2 VENT; VENT RATE 14; VT/PRESS 375
[2017-04-26] MEDS ORDERED: PT OWN MED DRAWER 7, Y5N ONE (08:06)
--- NOTE | 2017-04-26 08:43 | CONS ---
DATE OF CONSULTATION: DATE OF DICTATION: 04/26/2017 HISTORY OF PRESENT ILLNESS: This is 1 of multiple admissions for this 52-year-old female with severe COPD, CREST syndrome with Raynaud, opiate abuse, and repeated admissions for respiratory infections and aspiration often related to drug overdose. She was treated with Narcan in the emergency room with minimal responsiveness. Her toxicology, however, was positive for opiates. She required intubation in the ER and may have vomited during the intubation as per the notes. She needed IV access and an attempt at a right subclavian triple-lumen was made and subsequently she developed a large right pneumothorax and a right-sided chest tube had to be placed. She has been hypotensive and, in fact, currently on pressor support. That said, she has also been afebrile with a normal white count. We have treated her in the past multiple times for pneumonia. The notes indicate that she may also have had a seizure following admission. She has had an ESBL in respiratory cultures in the past. PAST MEDICAL HISTORY: As noted above. CURRENT MEDICATIONS: Include norepinephrine, Solu-Cortef, vasopressin. ALLERGIES: PENICILLIN. SOCIAL HISTORY: Opiate use. No intravenous drug use. Positive smoking history. HIV tested negative in the past and currently. FAMILY HISTORY: Unobtainable. REVIEW OF SYSTEMS:Respiratory: Currently chest tube placed, intubated. Cardiac: No history of chest pain, palpitation, syncope, murmur. Gastrointestinal: Positive episode of vomiting noted following admission. No abdominal pain, hematemesis, blood per rectum, diarrhea. Genitourinary: No dysuria, hematuria, urinary frequency. PHYSICAL EXAMINATION:General: Revealed a thin-appearing woman on the ventilator. Vital Signs: Temperature 98.3, pulse 61, blood pressure 120/77, respiration 17. HEENT: Endotracheal tube. Neck: Supple. Lungs: Bilateral rales. Heart: S1, S2. Regular rhythm without murmur. Abdomen: Positive bowel sounds. Soft, nontender. No palpable mass. Extremities: No clubbing, cyanosis, or edema. LABORATORY DATA: White count 7.8, hemoglobin 7.9, platelets of 334. INR 1.64. AB.51, 62, 53, 60% oxygen. BUN 36, creatinine 0.9. Liver enzymes within normal limits. Urinalysis with 6 RBCs, 4 WBCs. Chest x-ray was reviewed. Shows insertion of a right chest tube with an endotracheal tube. No definite infiltrate noted. ASSESSMENT: A 52-year-old female with a history of opiate use, chronic obstructive pulmonary disease, recurrent admissions for treatment of pneumonia, admitted now with what appears to be opiate overdose complicated by respiratory failure, seizure, and hypotension. Sepsis seems less likely as patient afebrile, has normal white count, and normal lactic acid. However, given her severity of illness, including the fact that she is on 2 pressors at this time, conservative management would dictate empiric therapy with antibiotic at least pending blood and urine cultures. She has had an extended-spectrum beta-lactamase cultured previously from sputum in the distant past but will treat her now with ertapenem 1 g IV q.6 hours pending cultures of blood, urine, and sputum. EDWARD CASSIDY M.D. BETSY/[id number]
[2017-04-26] MEDS: HEPARIN NA (PORCINE) 5,000 UNITS/ML 1ML VIAL SQ SCH ×2 (09:22→21:01)
--- NOTE | 2017-04-26 09:33 | CON.NEURO ---
Consult - History of Present Illness History of Present Illness: 52 year old female was brought by EMS for AMS, and she was given narcan on the route. She has history of drug over dose in the past. She has one episode of seizures. Patient also have aspiration pneumonia and was intubated. She has not had any seiure since admission to hospital. She has been afebrile. She also developed hypotension and pnemothorax in hospital - Past Medical History GUITAR MAKER: Yes: Peripheral Neuropathy Cardio/Vascular: Yes: Aortic Insufficiency (mild), Mitral Insufficiency (mild), Other (Raynaud's w/ multiple upper extremity digit amputations. 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), GERD (with long segment Bonner's esophagus and patent Schatzki ring), Peptic Ulcer Disease (antral ulcer ), Other (Bonner's esophagus, GERD, Schatzki ring, perforation of small bowel diverticulum, antral ulcer, scleroderma causing esophageal dysmotility and gastroparesis, GERD with long segment Bonner's esophagus,Schatzki ring,GAVE syndrome) Renal/: Yes: Renal Failure Infectious Disease: Yes: MRSA (bursitis) Psych: Yes: Addictions (marijuana,tobacco and prescription narcotics) Musculoskeletal: Yes: Chronic low back pain, Other (has spinal stimulator) Rheumatology: Yes: Vasculitis, Other (Scleroderma, Raynauds and CREST syndrome) Endocrine: Yes: Hypothyroidism, Other (Malnutrition, osteoporosis) Dermatology: Yes: Cellulitis - Past Surgical History Past Surgical History: Yes: Appendectomy, Colonoscopy, Upper Endoscopy - Alcohol/Substance Use Hx Alcohol Use: No History of Substance Use: reports: Marijuana, Prescription - Smoking History Smoking history: Former smoker Have you smoked in the past 12 months: Yes Aproximately how many cigarettes per day: 10 If you are a former smoker, when did you quit?: 4 years ago - Social History Usual Living Arrangement: With Parent ADL: Independent Occupation: disabled History of Recent Travel: No Home Medications - Allergies Allergies/Adverse Reactions: Allergies Allergy/AdvReac Type Severity Reaction Status Date / Time Penicillins Allergy Severe Hives Verified 04/25/17 10:48 tomato AdvReac Uncoded 04/25/17 10:48 - Home Medications Home Medications: Ambulatory Orders Duloxetine HCl [Cymbalta -] 60 mg PO DAILY #30 capsule. 03/10/15 Albuterol 0.083% Nebulizer Cinthya [Ventolin 0.083% Nebulizer Soln -] 1 amp NEB Q4H PRN #1 amp 04/11/16 Aspirin [ASA -] 81 mg PO DAILY tab.chew 04/11/16 Budesonide/Formeterol Fumarate [SYMBICORT 80/4.5mcg -] 2 puff IH BID #1 inhaler 04/11/16 Ranitidine [Zantac -] 150 mg PO DAILY 05/27/16 Aclidinium [place] [Tudorza -] 1 puff IH DAILY inhaler 07/20/16 Lactobacillus Acidophilus [Bacid -] 1 each PO DAILY #30 capsule 07/20/16 Metoclopramide HCl [Reglan -] 10 mg PO ACHS tablet 07/20/16 Acetaminophen [Tylenol .Regular Strength -] 650 mg PO Q6H PRN #0 tablet Hydroxychloroquine So4 [Plaquenil -] 200 mg PO BID tablet 07/31/16 Pantoprazole Sodium [Protonix -] 40 mg PO BID tablet.ec 07/31/16 Lidocaine 5% Patch [Lidoderm -] 2 patch TP DAILY #60 patch 09/16/16 Albuterol 2.5/Ipratropium 0.5 [Duoneb -] 1 amp NEB BID amp 12/17/16 Multivitamins [Multivit ([facility])] 1 tab PO DAILY tab 12/17/16 Magnesium Oxide [Mag-Ox -] 400 mg PO BID #30 tablet MDD 2 12/18/16 Potassium Chloride [K-Dur -] 20 meq PO DAILY #30 tab 12/18/16 Bisacodyl Suppository [Dulcolax Suppository -] 10 mg RC DAILY PRN #0 supp.rect 01/01/17 Family Disease History - Family Disease History Family Disease History: Diabetes: Father (HCV), Heart Disease: Father, Mother, Other: Father, Brother (HIV) Physical Exam-Neuro Vital Signs: Vital Signs Temperature 99 F 04/26/17 09:00 Pulse Rate 58 L 04/26/17 09:00 Respiratory Rate 16 04/26/17 09:18 Blood Pressure 99/63 04/26/17 09:00 O2 Sat by Pulse Oximetry (%) 98 04/26/17 07:51 Labs: CBC, BMP 04/26/17 05:20 04/26/17 05:20 INR, PTT INR 1.64 (0.82-1.09) H 04/26/17 05:20 NIH Stroke Scale - Total Score NIH Stroke Scale Score: 0 Imaging - Results Cat Scan: Report Reviewed, Image Reviewed Assessment/Plan cc CC alerted mental status and seiuzres HPI 52 year old female was brought by EMS for AMS, and she was given narcan on the route. She has history of drug over dose in the past. She has one episode of seizures. Patient also have aspiration pneumonia and was intubated. She has not had any seiure since admission to hospital. She has been afebrile. She also developed hypotension and pnemothorax in hospital Past Medcial History of opioid abuse , copd, asthma, diverticulitis, renal failure, low back pain, scleroderma, and hypothyroidism, and malnutrition Allergies/Adverse Reactions: Allergies Allergy/AdvReac Type Severity Reaction Status Date / Time Penicillins Allergy Severe Hives Verified 04/25/17 10:48 tomato AdvReac Uncoded 04/25/17 10:48 - Home Medications Duloxetine HCl [Cymbalta -] 60 mg PO DAILY #30 capsule. 03/10/15 Albuterol 0.083% Nebulizer Cinthya [Ventolin 0.083% Nebulizer Soln -] 1 amp NEB Q4H PRN #1 amp 04/11/16 Aspirin [ASA -] 81 mg PO DAILY tab.chew 04/11/16 Budesonide/Formeterol Fumarate [SYMBICORT 80/4.5mcg -] 2 puff IH BID #1 inhaler 04/11/16 Ranitidine [Zantac -] 150 mg PO DAILY 05/27/16 Aclidinium [place] [Tudorza -] 1 puff IH DAILY inhaler 07/20/16 Lactobacillus Acidophilus [Bacid -] 1 each PO DAILY #30 capsule 11/04/16 Metoclopramide HCl [Reglan -] 10 mg PO ACHS tablet 07/20/16 Acetaminophen [Tylenol .Regular Strength -] 650 mg PO Q6H PRN #0 tablet Hydroxychloroquine So4 [Plaquenil -] 200 mg PO BID tablet 07/31/16 Pantoprazole Sodium [Protonix -] 40 mg PO BID tablet.ec 07/31/16 Lidocaine 5% Patch [Lidoderm -] 2 patch TP DAILY #60 patch 09/16/16 Albuterol 2.5/Ipratropium 0.5 [Duoneb -] 1 amp NEB BID amp 12/17/16 Multivitamins [Multivit ([facility])] 1 tab PO DAILY tab 12/17/16 Magnesium Oxide [Mag-Ox -] 400 mg PO BID #30 tablet MDD 2 12/18/16 Potassium Chloride [K-Dur -] 20 meq PO DAILY #30 tab 12/18/16 Bisacodyl Suppository [Dulcolax Suppository -] 10 mg RC DAILY PRN #0 supp.rect 01/01/17 Neurological Examination BP 99/63 TEMP 99F Patient is intubated, and opens eye to pain no face asymmetry, pupils is reactive, no neck stiffness moving all extremity no seizure activity was seen ct head unremarkable Assessment-- one episode of seizures in setting of multiple co morbdity and mental status change , specially there is history that she fell stairs and may have hit her head Plan -- no evidence of meningitis or stroke - suggest to load with keppra 1 gm and than 1 gm iv bid, spoke to resident at bedside - unlikey to be status epileptocus - advise to do an EEG can be obtained Thanks for consult, Please 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
--- NOTE | 2017-04-26 10:26 | PN ---
Progress Note, Physician History of Present Illness: Pt is off sedation, awake, follows commands; pt is intubated, on CPAP Pt w/o SOB, CP, palp, abd pain. - Current Medication List Current Medications: Active Medications Heparin Sodium (Porcine) (Heparin -) 5,000 unit SQ BID RAISSA Last Admin: 04/26/17 09:22 Dose: 5,000 unit Hydrocortisone Sodium Succinate (Solu-Cortef -) 50 mg IVPB Q6H-IV RAISSA Last Admin: 04/26/17 08:08 Dose: 50 mg Norepinephrine Bitartrate 8, (000 mcg/ Dextrose) 500 mls @ 18.75 mls/hr IV TITR RAISSA; 5 MCG/MIN PRN Reason: Protocol Last Titration: 04/26/17 09:00 Dose: 0 mcg/min Propofol (Diprivan -) 100 mls @ 0.953 mls/hr IVPB TITR RAISSA; 5 MCG/KG/MIN PRN Reason: Protocol Last Titration: 04/26/17 09:28 Dose: 0 mcg/kg/min Sodium Chloride (Normal Saline -) 1,000 mls @ 125 mls/hr IV ASDIR RAISSA Last Admin: 04/25/17 17:02 Dose: 125 mls/hr Vasopressin 50 units/ Sodium (Chloride) 100 mls @ 4.8 mls/hr IVPB ASDIR RAISSA; 2.4 UNITS/HR PRN Reason: Protocol Last Admin: 04/26/17 04:25 Dose: 4.8 mls/hr Ertapenem 1 gm/ Sodium (Chloride) 50 mls @ 50 mls/hr IVPB DAILY RAISSA PRN Reason: Protocol Potassium Chloride (Potassium Chloride 10 Meq Premix Ivpb -) 100 mls @ 100 mls/ hr IVPB Q60M RAISSA Stop: 04/26/17 13:29 - Objective Vital Signs: Vital Signs Temperature 99 F 04/26/17 09:29 Pulse Rate 74 04/26/17 09:29 Respiratory Rate 24 04/26/17 09:29 Blood Pressure 91/64 04/26/17 09:29 O2 Sat by Pulse Oximetry (%) 98 04/26/17 07:51 Constitutional: Yes: No Distress, Calm Cardiovascular: Yes: Regular Rate and Rhythm, S1, S2 Respiratory: Yes: Regular, Rhonchi Gastrointestinal: Yes: Normal Bowel Sounds, Soft. No: Tenderness Edema: No Neurological: Yes: Alert Labs: CBC, BMP 04/26/17 05:20 04/26/17 05:20 INR, PTT INR 1.64 (0.82-1.09) H 04/26/17 05:20 Problem List - Problems (1) Altered mental status Code(s): R41.82 - ALTERED MENTAL STATUS, UNSPECIFIED (2) Acute renal failure Code(s): N17.9 - ACUTE KIDNEY FAILURE, UNSPECIFIED Qualifiers: Acute renal failure type: unspecified Qualified Code(s): N17.9 - Acute kidney failure, unspecified (3) Acute respiratory failure Code(s): J96.00 - ACUTE RESPIRATORY FAILURE, UNSP W HYPOXIA OR HYPERCAPNIA Qualifiers: Respiratory failure complication: hypercapnia Qualified Code(s): J96.02 - Acute respiratory failure with hypercapnia (4) Pneumothorax on right Code(s): J93.9 - PNEUMOTHORAX, UNSPECIFIED (5) S/P chest tube placement Code(s): Z93.8 - OTHER ARTIFICIAL OPENING STATUS (6) Hypokalemia Code(s): E87.6 - HYPOKALEMIA (7) Seizure Code(s): R56.9 - UNSPECIFIED CONVULSIONS (8) Hypotension Code(s): I95.9 - HYPOTENSION, UNSPECIFIED (9) COPD (chronic obstructive pulmonary disease) Code(s): J44.9 - CHRONIC OBSTRUCTIVE PULMONARY DISEASE, UNSPECIFIED (10) CREST syndrome Code(s): M34.1 - CR(E)ST SYNDROME (11) Raynauds disease Code(s): I73.00 - RAYNAUD'S SYNDROME WITHOUT GANGRENE (12) Scleroderma Code(s): M34.9 - SYSTEMIC SCLEROSIS, UNSPECIFIED Assessment/Plan Pt with multiple medical conditions at baseline, now admitted with AMS , s/p fall, witnessed seizure, in acute respiratory failure s/p intubation, right side large pneumothorax (possible secondary to TLC placement as 1-st CXR w/o pneumothorax), hypotension, possible aspiration PNA. Pt was admitted to ICU. IVF Pressors ( at baseline SBP in 90's); now on Vasopressin only IV abtx Correct electrolytes abnormalities. DVT and GI proxylasis AM labs. CCM, Neuro, ID consults appreciated; case was d/w Dr. Owens and Dr. Baldwin Pt might be extubated today- timing per ICU team Renal and CT Sx consult. Prognosis: reserved. Time spent for managing pt's care: over 45 min
--- NOTE | 2017-04-26 11:42 | PN ---
Teaching Attending Note Name of Resident: Vineet Garcia ATTENDING PHYSICIAN STATEMENT I saw and evaluated the patient. I reviewed the resident's note and discussed the case with the resident. I agree with the resident's findings and plan as documented. SUBJECTIVE: Patient seen and examined in the ICU. Intubated and lightly sedated. Able to follow commands. Vasopressin for BP support. AC Mode of vent. No air leak on CT noted. CXR: Right CT intact / Right apical PTX Intake & Output 04/23/17 04/24/17 04/25/17 04/26/17 23:59 23:59 23:59 23:59 Intake Total 1300 3275 Output Total 900 1800 Balance 400 1475 Weight 38 lb Last Vital Signs Temp Pulse Resp BP Pulse Ox 98.8 F 68 26 H 106/66 98 04/26/17 10:34 04/26/17 10:45 04/26/17 10:45 04/26/17 10:45 04/26/17 07:51 Active Medications Heparin Sodium (Porcine) (Heparin -) 5,000 unit SQ BID RAISSA Last Admin: 04/26/17 09:22 Dose: 5,000 unit Hydrocortisone Sodium Succinate (Solu-Cortef -) 50 mg IVPB Q6H-IV RAISSA Last Admin: 04/26/17 08:08 Dose: 50 mg Sodium Chloride (Normal Saline -) 1,000 mls @ 125 mls/hr IV ASDIR RAISSA Last Admin: 04/25/17 17:02 Dose: 125 mls/hr Vasopressin 50 units/ Sodium (Chloride) 100 mls @ 4.8 mls/hr IVPB ASDIR RAISSA; 2.4 UNITS/HR PRN Reason: Protocol Last Admin: 04/26/17 04:25 Dose: 4.8 mls/hr Ertapenem 1 gm/ Sodium (Chloride) 50 mls @ 50 mls/hr IVPB DAILY RAISSA PRN Reason: Protocol Potassium Chloride (Potassium Chloride 10 Meq Premix Ivpb -) 100 mls @ 100 mls/ hr IVPB Q60M RAISSA Stop: 04/26/17 14:14 Constitutional: Yes: Intubated, able to follow commands Eyes: Yes: PERRL HENT: Yes: Atraumatic, Normocephalic Neck: Yes: Trachea Midline Cardiovascular: Yes: Regular Rate and Rhythm, S1, S2 Respiratory: Yes: Right CT without air leak, scattered rhonchi Gastrointestinal: Yes: Normal Bowel Sounds, Soft Renal/: Yes: Collier Present Extremities: Yes: Cool Peripheral Pulses WNL: Yes Neurological: Yes: non-focal Labs: Laboratory Results - last 24 hr 04/25/17 04/25/17 04/25/17 11:20 12:40 12:40 WBC 9.4 RBC 3.56 L Hgb 9.5 L Hct 28.7 L MCV 80.7 MCH 26.7 MCHC 33.1 RDW 17.1 H Plt Count 401 D MPV 7.8 D Neutrophils % 87.8 H Lymphocytes % 6.3 L D Monocytes % 5.5 Eosinophils % 0.1 Basophils % 0.3 INR 1.43 H PTT (Actin FS) 30.4 Puncture Site ABG pH ABG pCO2 at Pt Temp ABG pO2 at Pt Temp ABG HCO3 ABG O2 Sat (Measured) ABG O2 Content ABG Base Excess Akash Test VBG pH POC VBG pCO2 POC VBG pO2 Mixed VBG HCO3 Carboxyhemoglobin Methemoglobin O2 Delivery Device Oxygen Flow Rate Vent Mode Vent Rate Mechanical Rate PEEP Pressure Support Vent Sodium Potassium Chloride Carbon Dioxide Anion Gap BUN Creatinine Creat Clearance w eGFR POC Glucometer Random Glucose Serum Osmolality Lactic Acid Calcium Phosphorus Magnesium Total Bilirubin AST ALT Alkaline Phosphatase Creatine Kinase Troponin I Total Protein Albumin TSH Free T4 Urine Color Sharifa Urine Appearance Cloudy Urine pH 5.0 Ur Specific Sunset 1.020 Urine Protein 1+ H Urine Glucose (UA) Negative Urine Ketones Negative Urine Blood Negative Urine Nitrite Negative Urine Bilirubin 2.0 Urine Urobilinogen Negative Ur Leukocyte Esterase Negative Urine RBC 6 Urine WBC 4 Ur Epithelial Cells Rare Urine Bacteria Rare Hyaline Casts 92 Urine Mucus Rare Urine Osmolality Ur Random Sodium Ur Random Potassium Ur Random Chloride Urine Creatinine Opiates Screen Methadone Screen Barbiturate Screen Phencyclidine Screen Ur Amphetamines Screen MDMA (Ecstasy) Screen Benzodiazepines Screen Cocaine Screen U Marijuana (THC) Screen HIV 1&2 Antibody Screen HIV P24 Antigen Blood Type Antibody Screen 04/25/17 04/25/17 04/25/17 12:40 12:40 12:40 WBC RBC Hgb Hct MCV MCH MCHC RDW Plt Count MPV Neutrophils % Lymphocytes % Monocytes % Eosinophils % Basophils % INR PTT (Actin FS) Puncture Site ABG pH ABG pCO2 at Pt Temp ABG pO2 at Pt Temp ABG HCO3 ABG O2 Sat (Measured) ABG O2 Content ABG Base Excess Akash Test VBG pH POC VBG pCO2 POC VBG pO2 Mixed VBG HCO3 Carboxyhemoglobin Methemoglobin O2 Delivery Device Oxygen Flow Rate Vent Mode Vent Rate Mechanical Rate PEEP Pressure Support Vent Sodium 130 L Potassium 3.1 L Chloride 62 L D Carbon Dioxide 58 H D Anion Gap 10 BUN 53 H D Creatinine 2.8 H D Creat Clearance w eGFR 17.68 POC Glucometer Random Glucose 112 H D Serum Osmolality Lactic Acid 2.8 H* Calcium 7.5 L Phosphorus Magnesium Total Bilirubin 0.5 D AST 19 ALT 23 D Alkaline Phosphatase 51 D Creatine Kinase 89 Troponin I < 0.02 Total Protein 6.3 L Albumin 2.5 L TSH Free T4 Urine Color Urine Appearance Urine pH Ur Specific Sunset Urine Protein Urine Glucose (UA) Urine Ketones Urine Blood Urine Nitrite Urine Bilirubin Urine Urobilinogen Ur Leukocyte Esterase Urine RBC Urine WBC Ur Epithelial Cells Urine Bacteria Hyaline Casts Urine Mucus Urine Osmolality Ur Random Sodium Ur Random Potassium Ur Random Chloride Urine Creatinine Opiates Screen Methadone Screen Barbiturate Screen Phencyclidine Screen Ur Amphetamines Screen MDMA (Ecstasy) Screen Benzodiazepines Screen Cocaine Screen U Marijuana (THC) Screen HIV 1&2 Antibody Screen Negative HIV P24 Antigen Negative Blood Type Antibody Screen 04/25/17 04/25/17 04/25/17 12:50 14:20 14:27 WBC RBC Hgb Hct MCV MCH MCHC RDW Plt Count MPV Neutrophils % Lymphocytes % Monocytes % Eosinophils % Basophils % INR PTT (Actin FS) Puncture Site Right radial ABG pH 7.56 H D ABG pCO2 at Pt Temp 62.0 H* D ABG pO2 at Pt Temp 291.0 H* ABG HCO3 55.5 H* ABG O2 Sat (Measured) 99.7 H* ABG O2 Content 15.4 ABG Base Excess 27.7 H* Akash Test Positive VBG pH 7.54 H D POC VBG pCO2 68.3 H* D POC VBG pO2 52.5 H D Mixed VBG HCO3 57.8 H* Carboxyhemoglobin 1.9 Methemoglobin 1.2 O2 Delivery Device Vent Oxygen Flow Rate 100% Vent Mode A/c Vent Rate 14 Mechanical Rate Yes PEEP 5.0 Pressure Support Vent 450 Sodium Potassium Chloride Carbon Dioxide Anion Gap BUN Creatinine Creat Clearance w eGFR POC Glucometer Random Glucose Serum Osmolality Lactic Acid 2.0 Calcium Phosphorus Magnesium Total Bilirubin AST ALT Alkaline Phosphatase Creatine Kinase Troponin I Total Protein Albumin TSH Free T4 Urine Color Urine Appearance Urine pH Ur Specific Sunset Urine Protein Urine Glucose (UA) Urine Ketones Urine Blood Urine Nitrite Urine Bilirubin Urine Urobilinogen Ur Leukocyte Esterase Urine RBC Urine WBC Ur Epithelial Cells Urine Bacteria Hyaline Casts Urine Mucus Urine Osmolality Ur Random Sodium Ur Random Potassium Ur Random Chloride Urine Creatinine Opiates Screen Methadone Screen Barbiturate Screen Phencyclidine Screen Ur Amphetamines Screen MDMA (Ecstasy) Screen Benzodiazepines Screen Cocaine Screen U Marijuana (THC) Screen HIV 1&2 Antibody Screen HIV P24 Antigen Blood Type Antibody Screen 04/25/17 04/25/17 04/25/17 20:30 20:50 20:50 WBC RBC Hgb Hct MCV MCH MCHC RDW Plt Count MPV Neutrophils % Lymphocytes % Monocytes % Eosinophils % Basophils % INR PTT (Actin FS) Puncture Site Right brachial ABG pH 7.51 H ABG pCO2 at Pt Temp 62.4 H* ABG pO2 at Pt Temp 53.8 L D ABG HCO3 49.5 H* ABG O2 Sat (Measured) 84.3 L ABG O2 Content 11.0 L ABG Base Excess 22.8 H* Akash Test Positive VBG pH POC VBG pCO2 POC VBG pO2 Mixed VBG HCO3 Carboxyhemoglobin Methemoglobin O2 Delivery Device Vent Oxygen Flow Rate 60% Vent Mode Ac Vent Rate 14 Mechanical Rate Y PEEP 0.0 Pressure Support Vent 375 Sodium 131 L Potassium 3.3 L Chloride 77 L D Carbon Dioxide 49 H Anion Gap 5 L BUN 48 H Creatinine 1.6 H D Creat Clearance w eGFR POC Glucometer Random Glucose 107 H Serum Osmolality 286 Lactic Acid Calcium 6.8 L* Phosphorus 4.1 Magnesium 1.1 L D Total Bilirubin AST ALT Alkaline Phosphatase Creatine Kinase Troponin I Total Protein Albumin TSH 1.30 D Free T4 Urine Color Urine Appearance Urine pH Ur Specific Sunset Urine Protein Urine Glucose (UA) Urine Ketones Urine Blood Urine Nitrite Urine Bilirubin Urine Urobilinogen Ur Leukocyte Esterase Urine RBC Urine WBC Ur Epithelial Cells Urine Bacteria Hyaline Casts Urine Mucus Urine Osmolality Cancelled Ur Random Sodium Ur Random Potassium Ur Random Chloride Urine Creatinine Opiates Screen Methadone Screen Barbiturate Screen Phencyclidine Screen Ur Amphetamines Screen MDMA (Ecstasy) Screen Benzodiazepines Screen Cocaine Screen U Marijuana (THC) Screen HIV 1&2 Antibody Screen HIV P24 Antigen Blood Type Antibody Screen 04/25/17 04/25/17 04/25/17 20:50 20:50 21:00 WBC 6.5 D RBC 3.51 L Hgb 9.5 L Hct 28.8 L MCV 81.9 MCH 27.2 MCHC 33.2 RDW 17.4 H Plt Count 421 MPV 7.7 Neutrophils % 85.3 H Lymphocytes % 10.2 D Monocytes % 3.8 Eosinophils % 0.6 D Basophils % 0.1 INR PTT (Actin FS) Puncture Site ABG pH ABG pCO2 at Pt Temp ABG pO2 at Pt Temp ABG HCO3 ABG O2 Sat (Measured) ABG O2 Content ABG Base Excess Akash Test VBG pH POC VBG pCO2 POC VBG pO2 Mixed VBG HCO3 Carboxyhemoglobin Methemoglobin O2 Delivery Device Oxygen Flow Rate Vent Mode Vent Rate Mechanical Rate PEEP Pressure Support Vent Sodium Potassium Chloride Carbon Dioxide Anion Gap BUN Creatinine Creat Clearance w eGFR POC Glucometer Random Glucose Serum Osmolality Lactic Acid 1.1 Calcium Phosphorus Magnesium Total Bilirubin AST ALT Alkaline Phosphatase Creatine Kinase Troponin I Total Protein Albumin TSH Free T4 Urine Color Urine Appearance Urine pH Ur Specific Sunset Urine Protein Urine Glucose (UA) Urine Ketones Urine Blood Urine Nitrite Urine Bilirubin Urine Urobilinogen Ur Leukocyte Esterase Urine RBC Urine WBC Ur Epithelial Cells Urine Bacteria Hyaline Casts Urine Mucus Urine Osmolality Ur Random Sodium Ur Random Potassium Ur Random Chloride Urine Creatinine Opiates Screen Methadone Screen Barbiturate Screen Phencyclidine Screen Ur Amphetamines Screen MDMA (Ecstasy) Screen Benzodiazepines Screen Cocaine Screen U Marijuana (THC) Screen HIV 1&2 Antibody Screen HIV P24 Antigen Blood Type O POSITIVE Antibody Screen Negative 04/25/17 04/25/17 04/25/17 21:48 23:00 23:00 WBC RBC Hgb Hct MCV MCH MCHC RDW Plt Count MPV Neutrophils % Lymphocytes % Monocytes % Eosinophils % Basophils % INR PTT (Actin FS) Puncture Site ABG pH ABG pCO2 at Pt Temp ABG pO2 at Pt Temp ABG HCO3 ABG O2 Sat (Measured) ABG O2 Content ABG Base Excess Akash Test VBG pH POC VBG pCO2 POC VBG pO2 Mixed VBG HCO3 Carboxyhemoglobin Methemoglobin O2 Delivery Device Oxygen Flow Rate Vent Mode Vent Rate Mechanical Rate PEEP Pressure Support Vent Sodium Potassium Chloride Carbon Dioxide Anion Gap BUN Creatinine Creat Clearance w eGFR POC Glucometer Random Glucose Serum Osmolality Lactic Acid Calcium Phosphorus Magnesium Total Bilirubin AST ALT Alkaline Phosphatase Creatine Kinase Troponin I Total Protein Albumin TSH Free T4 1.15 Urine Color Urine Appearance Urine pH Ur Specific Sunset Urine Protein Urine Glucose (UA) Urine Ketones Urine Blood Urine Nitrite Urine Bilirubin Urine Urobilinogen Ur Leukocyte Esterase Urine RBC Urine WBC Ur Epithelial Cells Urine Bacteria Hyaline Casts Urine Mucus Urine Osmolality Ur Random Sodium 27 Ur Random Potassium 13.9 Ur Random Chloride < 10 Urine Creatinine 27.2 Opiates Screen Positive Methadone Screen Negative Barbiturate Screen Negative Phencyclidine Screen Negative Ur Amphetamines Screen Negative MDMA (Ecstasy) Screen Negative Benzodiazepines Screen Negative Cocaine Screen Negative U Marijuana (THC) Screen Negative HIV 1&2 Antibody Screen HIV P24 Antigen Blood Type Antibody Screen 04/26/17 04/26/17 04/26/17 05:20 05:20 05:20 WBC 7.8 RBC 2.89 L Hgb 7.9 L D Hct 23.8 L D MCV 82.3 MCH 27.2 MCHC 33.0 RDW 17.1 H Plt Count 334 D MPV 8.2 Neutrophils % Lymphocytes % Monocytes % Eosinophils % Basophils % INR 1.64 H PTT (Actin FS) 33.5 Puncture Site ABG pH ABG pCO2 at Pt Temp ABG pO2 at Pt Temp ABG HCO3 ABG O2 Sat (Measured) ABG O2 Content ABG Base Excess Akash Test VBG pH POC VBG pCO2 POC VBG pO2 Mixed VBG HCO3 Carboxyhemoglobin Methemoglobin O2 Delivery Device Oxygen Flow Rate Vent Mode Vent Rate Mechanical Rate PEEP Pressure Support Vent Sodium 135 L Potassium 3.2 L Chloride 90 L D Carbon Dioxide 39 H D Anion Gap 6 L BUN 36 H D Creatinine 0.9 D Creat Clearance w eGFR > 60 POC Glucometer Random Glucose 122 H Serum Osmolality Lactic Acid Calcium 6.7 L* Phosphorus 3.7 Magnesium 1.9 D Total Bilirubin 0.3 D AST 16 ALT 18 D Alkaline Phosphatase 41 L Creatine Kinase Troponin I Total Protein 4.8 L D Albumin 1.8 L D TSH Free T4 Urine Color Urine Appearance Urine pH Ur Specific Sunset Urine Protein Urine Glucose (UA) Urine Ketones Urine Blood Urine Nitrite Urine Bilirubin Urine Urobilinogen Ur Leukocyte Esterase Urine RBC Urine WBC Ur Epithelial Cells Urine Bacteria Hyaline Casts Urine Mucus Urine Osmolality Ur Random Sodium Ur Random Potassium Ur Random Chloride Urine Creatinine Opiates Screen Methadone Screen Barbiturate Screen Phencyclidine Screen Ur Amphetamines Screen MDMA (Ecstasy) Screen Benzodiazepines Screen Cocaine Screen U Marijuana (THC) Screen HIV 1&2 Antibody Screen HIV P24 Antigen Blood Type Antibody Screen 04/26/17 04/26/17 06:34 07:40 WBC RBC Hgb Hct MCV MCH MCHC RDW Plt Count MPV Neutrophils % Lymphocytes % Monocytes % Eosinophils % Basophils % INR PTT (Actin FS) Puncture Site Right brachial ABG pH 7.50 H ABG pCO2 at Pt Temp 49.0 H D ABG pO2 at Pt Temp 112.0 H D ABG HCO3 38.0 H ABG O2 Sat (Measured) 98.2 ABG O2 Content 12.7 L ABG Base Excess 13.3 H Akash Test Positive VBG pH POC VBG pCO2 POC VBG pO2 Mixed VBG HCO3 Carboxyhemoglobin Methemoglobin O2 Delivery Device Vent Oxygen Flow Rate 50% Vent Mode A/c Vent Rate 14 Mechanical Rate Yes PEEP 5.0 Pressure Support Vent 375 Sodium Potassium Chloride Carbon Dioxide Anion Gap BUN Creatinine Creat Clearance w eGFR POC Glucometer 143.39235 Random Glucose Serum Osmolality Lactic Acid Calcium Phosphorus Magnesium Total Bilirubin AST ALT Alkaline Phosphatase Creatine Kinase Troponin I Total Protein Albumin TSH Free T4 Urine Color Urine Appearance Urine pH Ur Specific Sunset Urine Protein Urine Glucose (UA) Urine Ketones Urine Blood Urine Nitrite Urine Bilirubin Urine Urobilinogen Ur Leukocyte Esterase Urine RBC Urine WBC Ur Epithelial Cells Urine Bacteria Hyaline Casts Urine Mucus Urine Osmolality Ur Random Sodium Ur Random Potassium Ur Random Chloride Urine Creatinine Opiates Screen Methadone Screen Barbiturate Screen Phencyclidine Screen Ur Amphetamines Screen MDMA (Ecstasy) Screen Benzodiazepines Screen Cocaine Screen U Marijuana (THC) Screen HIV 1&2 Antibody Screen HIV P24 Antigen Blood Type Antibody Screen Problem List - Problems (1) Respiratory failure Code(s): J96.90 - RESPIRATORY FAILURE, UNSP, UNSP W HYPOXIA OR HYPERCAPNIA Qualifiers: Chronicity: acute Respiratory failure complication: unspecified whether with hypoxia or hypercapnia Qualified Code(s): J96.00 - Acute respiratory failure, unspecified whether with hypoxia or hypercapnia (2) Acute renal failure Code(s): N17.9 - ACUTE KIDNEY FAILURE, UNSPECIFIED Qualifiers: Acute renal failure type: unspecified Qualified Code(s): N17.9 - Acute kidney failure, unspecified (3) Altered mental status Code(s): R41.82 - ALTERED MENTAL STATUS, UNSPECIFIED (4) Hypotension Code(s): I95.9 - HYPOTENSION, UNSPECIFIED Assessment/Plan Wean trials CT to suction Wean pressors CTS evaluation IVF BD TX ABX per ID Follow cultures Wean steroids Dr Owens CCTime [id number]" The care of this patient involved high complexity decision making to prevent further life threatening deterioration of the patient's condition and/or to evaluate & treat vital organ system(s) failure or risk of failure.
--- NOTE | 2017-04-26 11:48 | CON.NEP ---
Consult Consult Specialty:: Nephrology (Felix/Breezy) Referred by:: Dr. Gonzalez Reason for Consultation:: PRASHANT and Electrolyte abnormalities - History of Present Illness Chief Complaint: AMS/Seizure History of Present Illness: This is a 52 year old woman with PMhx of Scleroderma, CREST Syndrome, COPD, CHF , Narcotic dependence, Hypothyrodism who presented with AMS and Seizure and found to have PRASHANT, Hyponatremia, Hypokalemia and Pseduohypocalcemia. Pt was found unresponsive at home and had a witnessed seizure in the ED. Pt was intuabted and required a chest tube placement for iatrogenic pnumothorax. Pt extubated this am. Awake and alert but lethargic. - History Source History Provided By: Medical Record Limitations to Obtaining History: Clinical Condition - Past Medical History [employer]: Yes: Peripheral Neuropathy Cardio/Vascular: Yes: Aortic Insufficiency (mild), Mitral Insufficiency (mild), Other (Raynaud's w/ multiple upper extremity digit amputations. 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), GERD (with long segment Bonner's esophagus and patent Schatzki ring), Peptic Ulcer Disease (antral ulcer ), Other (Bonner's esophagus, GERD, Schatzki ring, perforation of small bowel diverticulum, antral ulcer, scleroderma causing esophageal dysmotility and gastroparesis, GERD with long segment Bonner's esophagus,Schatzki ring,GAVE syndrome) Renal/: Yes: Renal Failure Infectious Disease: Yes: MRSA (bursitis) Psych: Yes: Addictions (marijuana,tobacco and prescription narcotics) Musculoskeletal: Yes: Chronic low back pain, Other (has spinal stimulator) Rheumatology: Yes: Vasculitis, Other (Scleroderma, Raynauds and CREST syndrome) Endocrine: Yes: Hypothyroidism, Other (Malnutrition, osteoporosis) Dermatology: Yes: Cellulitis - Past Surgical History Past Surgical History: Yes: Appendectomy, Colonoscopy, Upper Endoscopy - Alcohol/Substance Use Hx Alcohol Use: No History of Substance Use: reports: Marijuana, Prescription - Smoking History Smoking history: Former smoker Have you smoked in the past 12 months: Yes Aproximately how many cigarettes per day: 10 If you are a former smoker, when did you quit?: 4 years ago - Social History Usual Living Arrangement: With Parent ADL: Independent Occupation: disabled History of Recent Travel: No Home Medications - Allergies Allergies/Adverse Reactions: Allergies Allergy/AdvReac Type Severity Reaction Status Date / Time Penicillins Allergy Severe Hives Verified 04/25/17 10:48 tomato AdvReac Uncoded 04/25/17 10:48 - Home Medications Home Medications: Ambulatory Orders Duloxetine HCl [Cymbalta -] 60 mg PO DAILY #30 capsule. 03/10/15 Albuterol 0.083% Nebulizer Cinthya [Ventolin 0.083% Nebulizer Soln -] 1 amp NEB Q4H PRN #1 amp 04/11/16 Aspirin [ASA -] 81 mg PO DAILY tab.chew 04/11/16 Budesonide/Formeterol Fumarate [SYMBICORT 80/4.5mcg -] 2 puff IH BID #1 inhaler 04/11/16 Ranitidine [Zantac -] 150 mg PO DAILY 05/27/16 Aclidinium Monroe [Tudorza -] 1 puff IH DAILY inhaler 07/20/16 Lactobacillus Acidophilus [Bacid -] 1 each PO DAILY #30 capsule 07/20/16 Metoclopramide HCl [Reglan -] 10 mg PO ACHS tablet 07/20/16 Acetaminophen [Tylenol .Regular Strength -] 650 mg PO Q6H PRN #0 tablet Hydroxychloroquine So4 [Plaquenil -] 200 mg PO BID tablet 07/31/16 Pantoprazole Sodium [Protonix -] 40 mg PO BID tablet.ec 07/31/16 Lidocaine 5% Patch [Lidoderm -] 2 patch TP DAILY #60 patch 09/16/16 Albuterol 2.5/Ipratropium 0.5 [Duoneb -] 1 amp NEB BID amp 12/17/16 Multivitamins [Multivit ([facility] Formulary)] 1 tab PO DAILY tab 12/17/16 Magnesium Oxide [Mag-Ox -] 400 mg PO BID #30 tablet MDD 2 12/18/16 Potassium Chloride [K-Dur -] 20 meq PO DAILY #30 tab 12/18/16 Bisacodyl Suppository [Dulcolax Suppository -] 10 mg RC DAILY PRN #0 supp.rect 01/01/17 Family Disease History - Family Disease History Family Disease History: Diabetes: Father (HCV), Heart Disease: Father, Mother, Other: Father, Brother (HIV) Review of Systems Unable to obtain ROS, reason: pt very lethagic s/p extu Nephrology Consult - Height Height: 5 ft 4 in - Weight Weight: 38 lb - BMI Body Mass Index (BMI): 6.5 - Lab Results CBC,BMP: CBC, BMP 04/26/17 05:20 04/26/17 05:20 Anion Gap: Anion Gap Anion Gap 6 (8-16) L 04/26/17 05:20 - Imaging Chest X-ray: Report Reviewed - Physical Examination Vital Signs: Vital Signs Temperature 98.8 F 04/26/17 10:34 Pulse Rate 68 04/26/17 10:45 Respiratory Rate 26 H 04/26/17 10:45 Blood Pressure 106/66 04/26/17 10:45 O2 Sat by Pulse Oximetry (%) 98 04/26/17 07:51 Constitutional: Yes: No Distress, Calm Eyes: Yes: Conjunctiva Clear HENT: Yes: Atraumatic Neck: Yes: Supple Cardiovascular: Yes: Regular Rate and Rhythm, S1, S2. No: Murmur, Rub Respiratory: Yes: Regular, CTA Bilaterally. No: Rales, Rhonchi, SOB Gastrointestinal: Yes: Normal Bowel Sounds, Soft. No: Tenderness Renal/: Yes: Collier Present. No: Bladder Distention, CVA Tenderness - Left, CVA Tenderness - Right Edema: No Assessment/Plan 52 year old woman with PMhx of Scleroderma, CREST Syndrome, COPD, CHF, Narcotic dependence, Hypothyrodism who presented with AMS and Seizure and found to have PRASHANT, Hyponatremia, Hypokalemia and Pseduohypocalcemia. #Acute Kidney Injury Likey due to renal hypoperfusion in setting of PNA/Sepsis CHeck feNa, UPCR no need for renal US given improvement in renal function continue isotonic saline Trend BUN/Cr and electrolytes #Hyponatremia likely hypovolemic hyponatremia continue isotonic saline trend NA daily #Hypokalemia supplament to keep K ~4 #Pseudohypocalcemia Corrected Ca is 8.4 #Seizure work up as per Neurology #Aspiration PNA Continue Ertapenem as per ID #Sarcoidosis/CREST Supportive Care #Anemia Check iron studies transfuse as per ICU protocol Current Medications Albuterol Sulfate (Ventolin 0.083% Nebulizer Soln -) 1 amp NEB Q4H PRN PRN Reason: SHORT OF BREATH/WHEEZING Arformoterol Tartrate (Brovana (Restricted To Pulmonology/Resp) -) 1 amp NEB BID RAISSA Heparin Sodium (Porcine) (Heparin -) 5,000 unit SQ BID RAISSA Last Admin: 04/26/17 09:22 Dose: 5,000 unit Hydrocortisone Sodium Succinate (Solu-Cortef -) 50 mg IVPB Q6H-IV RAISSA Last Admin: 04/26/17 08:08 Dose: 50 mg Sodium Chloride (Normal Saline -) 1,000 mls @ 125 mls/hr IV ASDIR RAISSA Last Admin: 04/25/17 17:02 Dose: 125 mls/hr Vasopressin 50 units/ Sodium (Chloride) 100 mls @ 4.8 mls/hr IVPB ASDIR RAISSA; 2.4 UNITS/HR PRN Reason: Protocol Last Admin: 04/26/17 04:25 Dose: 4.8 mls/hr Ertapenem 1 gm/ Sodium (Chloride) 50 mls @ 50 mls/hr IVPB DAILY RAISSA PRN Reason: Protocol Potassium Chloride (Potassium Chloride 10 Meq Premix Ivpb -) 100 mls @ 100 mls/ hr IVPB Q60M RAISSA Stop: 04/26/17 14:14
[2017-04-26] MEDS ORDERED: ALBUTEROL SO4 0.083% IH SOL 2.5 MG/3 ML VIAL.NEB. NEB PRN (11:52)
--- NOTE | 2017-04-26 11:54 | PN ---
Physical Exam: SUBJECTIVE: Patient seen and examined. Patient is responsive off sedation and is able to follow commands. Will wean and extubate today. OBJECTIVE: Vital Signs Period Temp Pulse Resp BP Sys/Sotelo Pulse Ox Last 24 Hr 98 F-99.1 F 58-80 12 70-127/54-98 94-100 GENERAL: The patient is awake, alert, and fully oriented, in no acute distress. HEAD: Normal with no signs of trauma. EYES: PERRL, extraocular movements intact, sclera anicteric, conjunctiva clear. No ptosis. ENT: Ears normal, nares patent, oropharynx clear without exudates, moist mucous membranes. NECK: Trachea midline, full range of motion, supple. LUNGS: Breath sounds equal, clear to auscultation bilaterally, no wheezes, no crackles, no accessory muscle use. HEART: Regular rate and rhythm, S1, S2 without murmur, rub or gallop. ABDOMEN: Soft, nontender, nondistended, normoactive bowel sounds, no guarding, no rebound, no hepatosplenomegaly, no masses. EXTREMITIES: 2+ pulses, warm, well-perfused, no edema. NEUROLOGICAL: Cranial nerves II through XII grossly intact. Normal speech, gait not observed. PSYCH: Normal mood, normal affect. SKIN: Warm, dry, normal turgor, no rashes or lesions noted Laboratory Results - last 24 hr 04/25/17 04/25/17 04/25/17 14:20 14:27 20:30 WBC RBC Hgb Hct MCV MCH MCHC RDW Plt Count MPV Neutrophils % Lymphocytes % Monocytes % Eosinophils % Basophils % INR PTT (Actin FS) Puncture Site Right radial Right brachial ABG pH 7.56 H D 7.51 H ABG pCO2 at Pt Temp 62.0 H* D 62.4 H* ABG pO2 at Pt Temp 291.0 H* 53.8 L D ABG HCO3 55.5 H* 49.5 H* ABG O2 Sat (Measured) 99.7 H* 84.3 L ABG O2 Content 15.4 11.0 L ABG Base Excess 27.7 H* 22.8 H* Akash Test Positive Positive Carboxyhemoglobin 1.9 Methemoglobin 1.2 O2 Delivery Device Vent Vent Oxygen Flow Rate 100% 60% Vent Mode A/c Ac Vent Rate 14 14 Mechanical Rate Yes Y PEEP 5.0 0.0 Pressure Support Vent 450 375 Sodium Potassium Chloride Carbon Dioxide Anion Gap BUN Creatinine Creat Clearance w eGFR POC Glucometer Random Glucose Serum Osmolality Lactic Acid 2.0 Calcium Phosphorus Magnesium Total Bilirubin AST ALT Alkaline Phosphatase Total Protein Albumin TSH Free T4 Urine Osmolality Ur Random Sodium Ur Random Potassium Ur Random Chloride Urine Creatinine Opiates Screen Methadone Screen Barbiturate Screen Phencyclidine Screen Ur Amphetamines Screen MDMA (Ecstasy) Screen Benzodiazepines Screen Cocaine Screen U Marijuana (THC) Screen Blood Type Antibody Screen 04/25/17 04/25/17 04/25/17 20:50 20:50 20:50 WBC 6.5 D RBC 3.51 L Hgb 9.5 L Hct 28.8 L MCV 81.9 MCH 27.2 MCHC 33.2 RDW 17.4 H Plt Count 421 MPV 7.7 Neutrophils % 85.3 H Lymphocytes % 10.2 D Monocytes % 3.8 Eosinophils % 0.6 D Basophils % 0.1 INR PTT (Actin FS) Puncture Site ABG pH ABG pCO2 at Pt Temp ABG pO2 at Pt Temp ABG HCO3 ABG O2 Sat (Measured) ABG O2 Content ABG Base Excess Akash Test Carboxyhemoglobin Methemoglobin O2 Delivery Device Oxygen Flow Rate Vent Mode Vent Rate Mechanical Rate PEEP Pressure Support Vent Sodium 131 L Potassium 3.3 L Chloride 77 L D Carbon Dioxide 49 H Anion Gap 5 L BUN 48 H Creatinine 1.6 H D Creat Clearance w eGFR POC Glucometer Random Glucose 107 H Serum Osmolality 286 Lactic Acid Calcium 6.8 L* Phosphorus 4.1 Magnesium 1.1 L D Total Bilirubin AST ALT Alkaline Phosphatase Total Protein Albumin TSH 1.30 D Free T4 Urine Osmolality Cancelled Ur Random Sodium Ur Random Potassium Ur Random Chloride Urine Creatinine Opiates Screen Methadone Screen Barbiturate Screen Phencyclidine Screen Ur Amphetamines Screen MDMA (Ecstasy) Screen Benzodiazepines Screen Cocaine Screen U Marijuana (THC) Screen Blood Type Antibody Screen 04/25/17 04/25/17 04/25/17 20:50 21:00 21:48 WBC RBC Hgb Hct MCV MCH MCHC RDW Plt Count MPV Neutrophils % Lymphocytes % Monocytes % Eosinophils % Basophils % INR PTT (Actin FS) Puncture Site ABG pH ABG pCO2 at Pt Temp ABG pO2 at Pt Temp ABG HCO3 ABG O2 Sat (Measured) ABG O2 Content ABG Base Excess Akash Test Carboxyhemoglobin Methemoglobin O2 Delivery Device Oxygen Flow Rate Vent Mode Vent Rate Mechanical Rate PEEP Pressure Support Vent Sodium Potassium Chloride Carbon Dioxide Anion Gap BUN Creatinine Creat Clearance w eGFR POC Glucometer Random Glucose Serum Osmolality Lactic Acid 1.1 Calcium Phosphorus Magnesium Total Bilirubin AST ALT Alkaline Phosphatase Total Protein Albumin TSH Free T4 1.15 Urine Osmolality Ur Random Sodium Ur Random Potassium Ur Random Chloride Urine Creatinine Opiates Screen Methadone Screen Barbiturate Screen Phencyclidine Screen Ur Amphetamines Screen MDMA (Ecstasy) Screen Benzodiazepines Screen Cocaine Screen U Marijuana (THC) Screen Blood Type O POSITIVE Antibody Screen Negative 04/25/17 04/25/17 04/26/17 23:00 23:00 05:20 WBC 7.8 RBC 2.89 L Hgb 7.9 L D Hct 23.8 L D MCV 82.3 MCH 27.2 MCHC 33.0 RDW 17.1 H Plt Count 334 D MPV 8.2 Neutrophils % Lymphocytes % Monocytes % Eosinophils % Basophils % INR PTT (Actin FS) Puncture Site ABG pH ABG pCO2 at Pt Temp ABG pO2 at Pt Temp ABG HCO3 ABG O2 Sat (Measured) ABG O2 Content ABG Base Excess Akash Test Carboxyhemoglobin Methemoglobin O2 Delivery Device Oxygen Flow Rate Vent Mode Vent Rate Mechanical Rate PEEP Pressure Support Vent Sodium Potassium Chloride Carbon Dioxide Anion Gap BUN Creatinine Creat Clearance w eGFR POC Glucometer Random Glucose Serum Osmolality Lactic Acid Calcium Phosphorus Magnesium Total Bilirubin AST ALT Alkaline Phosphatase Total Protein Albumin TSH Free T4 Urine Osmolality Ur Random Sodium 27 Ur Random Potassium 13.9 Ur Random Chloride < 10 Urine Creatinine 27.2 Opiates Screen Positive Methadone Screen Negative Barbiturate Screen Negative Phencyclidine Screen Negative Ur Amphetamines Screen Negative MDMA (Ecstasy) Screen Negative Benzodiazepines Screen Negative Cocaine Screen Negative U Marijuana (THC) Screen Negative Blood Type Antibody Screen 04/26/17 04/26/17 04/26/17 05:20 05:20 06:34 WBC RBC Hgb Hct MCV MCH MCHC RDW Plt Count MPV Neutrophils % Lymphocytes % Monocytes % Eosinophils % Basophils % INR 1.64 H PTT (Actin FS) 33.5 Puncture Site ABG pH ABG pCO2 at Pt Temp ABG pO2 at Pt Temp ABG HCO3 ABG O2 Sat (Measured) ABG O2 Content ABG Base Excess Akash Test Carboxyhemoglobin Methemoglobin O2 Delivery Device Oxygen Flow Rate Vent Mode Vent Rate Mechanical Rate PEEP Pressure Support Vent Sodium 135 L Potassium 3.2 L Chloride 90 L D Carbon Dioxide 39 H D Anion Gap 6 L BUN 36 H D Creatinine 0.9 D Creat Clearance w eGFR > 60 POC Glucometer [phone] Random Glucose 122 H Serum Osmolality Lactic Acid Calcium 6.7 L* Phosphorus 3.7 Magnesium 1.9 D Total Bilirubin 0.3 D AST 16 ALT 18 D Alkaline Phosphatase 41 L Total Protein 4.8 L D Albumin 1.8 L D TSH Free T4 Urine Osmolality Ur Random Sodium Ur Random Potassium Ur Random Chloride Urine Creatinine Opiates Screen Methadone Screen Barbiturate Screen Phencyclidine Screen Ur Amphetamines Screen MDMA (Ecstasy) Screen Benzodiazepines Screen Cocaine Screen U Marijuana (THC) Screen Blood Type Antibody Screen 04/26/17 07:40 WBC RBC Hgb Hct MCV MCH MCHC RDW Plt Count MPV Neutrophils % Lymphocytes % Monocytes % Eosinophils % Basophils % INR PTT (Actin FS) Puncture Site Right brachial ABG pH 7.50 H ABG pCO2 at Pt Temp 49.0 H D ABG pO2 at Pt Temp 112.0 H D ABG HCO3 38.0 H ABG O2 Sat (Measured) 98.2 ABG O2 Content 12.7 L ABG Base Excess 13.3 H Akash Test Positive Carboxyhemoglobin Methemoglobin O2 Delivery Device Vent Oxygen Flow Rate 50% Vent Mode A/c Vent Rate 14 Mechanical Rate Yes PEEP 5.0 Pressure Support Vent 375 Sodium Potassium Chloride Carbon Dioxide Anion Gap BUN Creatinine Creat Clearance w eGFR POC Glucometer Random Glucose Serum Osmolality Lactic Acid Calcium Phosphorus Magnesium Total Bilirubin AST ALT Alkaline Phosphatase Total Protein Albumin TSH Free T4 Urine Osmolality Ur Random Sodium Ur Random Potassium Ur Random Chloride Urine Creatinine Opiates Screen Methadone Screen Barbiturate Screen Phencyclidine Screen Ur Amphetamines Screen MDMA (Ecstasy) Screen Benzodiazepines Screen Cocaine Screen U Marijuana (THC) Screen Blood Type Antibody Screen Active Medications Generic Name Dose Route Start Last Admin Trade Name Freq PRN Reason Stop Dose Admin Heparin Sodium (Porcine) 5,000 unit 04/25/17 22:00 04/26/17 09:22 Heparin - SQ 5,000 unit BID RAISSA Administration Hydrocortisone Sodium Succinate 50 mg 04/25/17 21:45 04/26/17 08:08 Solu-Cortef - IVPB 50 mg Q6H-IV RAISSA Administration Sodium Chloride 1,000 mls @ 125 mls/hr 04/25/17 13:00 04/25/17 17:02 Normal Saline - IV 125 mls/hr ASDIR RAISSA Administration Vasopressin 50 units/ Sodium 100 mls @ 4.8 mls/hr 04/25/17 20:15 04/26/17 04:25 Chloride IVPB 4.8 mls/hr ASDIR RAISSA Administration Protocol 2.4 UNITS/HR Ertapenem 1 gm/ Sodium 50 mls @ 50 mls/hr 04/26/17 10:00 Chloride IVPB DAILY RAISSA Protocol Potassium Chloride 100 mls @ 100 mls/hr 04/26/17 11:15 Potassium Chloride 10 Meq Premix Ivpb - IVPB 04/26/17 14:14 Q60M RAISSA ASSESSMENT/PLAN: This is a 52-year-old female with a past medical history of COPD, CHF, narcotic abuse, HLD, asthma, scleroderma, gastroparesis, Raynaud's CREST syndrome, hypothyroid, and MDR aspiration PNAs with altered mental status s/p fall at home brought in by EMS with seizure en route. Patient was transferred to the ICU for insertion of large bore chest tube 2/2 pneumothorax Neuro: -patient is alert off pressors, able to follow commands -patient had seizure witnessed my EMS -will load with 1g Keppra and then 1g keppra BID as per neurology Pulmonary: -s/p chest tube insertion 2/2 pneumothroax -no air leak; chest tube to suction -CXR from today shows possible residual pneumothorax -CT surgery consult to evaluate -Patient saturating well on ventilator with minimal support -very responsive off sedation -will wean and then extubate Cardio: -PMH CHF -assess fluid status -will use caution with fluid resuscitation -Hypotension -on levo @ 2 mcg/min -on vasopressin 2.4mcg/ min -titrate to maintain MAP over 60-65 -as per PCP, the patient usually has a low BP FEN: -NS @ 125 -corrected calcium 8.1, will replete -NPO, will advance diet as tolerated Prophylaxsis: -heparin SQ -gi prophylaxsis is not indicated at this time Dispo: -continue to monitor in the ICU Problem List - Problems (1) Altered mental status Code(s): R41.82 - ALTERED MENTAL STATUS, UNSPECIFIED (2) Hypotension Code(s): I95.9 - HYPOTENSION, UNSPECIFIED (3) Pneumothorax on right Code(s): J93.9 - PNEUMOTHORAX, UNSPECIFIED (4) Respiratory failure Code(s): J96.90 - RESPIRATORY FAILURE, UNSP, UNSP W HYPOXIA OR HYPERCAPNIA Qualifiers: Chronicity: acute Respiratory failure complication: unspecified whether with hypoxia or hypercapnia Qualified Code(s): J96.00 - Acute respiratory failure, unspecified whether with hypoxia or hypercapnia (5) S/P chest tube placement Code(s): Z93.8 - OTHER ARTIFICIAL OPENING STATUS Visit type - Emergency Visit Emergency Visit: Yes ED Registration Date: 04/25/17 Care time: The patient presented to the Emergency Department on the above date and was hospitalized for further evaluation of their emergent condition. - New Patient This patient is new to me today: Yes Date on this admission: 04/26/17 - Critical Care Critical Care patient: Yes Total Critical Care Time (in minutes): 40 Critical Care Statement: The care of this patient involved high complexity decision making to prevent further life threatening deterioration of the patient 's condition and/or to evaluate & treat vital organ system(s) failure or risk of failure.
[2017-04-26] MEDS: ERTAPENEM SODIUM 1 GM in SODIUM CHLORIDE 50 ML IVPB SCH (12:05)
[2017-04-26] MEDS: ARFORMOTEROL TARTRATE 15 MCG/2 ML VIAL NEB SCH ×2 (12:19→21:50)
[2017-04-26] MEDS: SODIUM CHLORIDE 1,000 ML IV SCH (13:47)
[2017-04-26] MEDS ORDERED: HYDROCORTISONE SOD SUCCINATE 100 MG/2 ML VIAL IVPB SCH (14:03)
[2017-04-26] MEDS ORDERED: levETIRAcetam 500 MG/5 ML INJECTION VIAL IVPB ONE (14:23)
[2017-04-26] MEDS ORDERED: CALCIUM GLUCONATE 10% - 1,000 MG/10 ML VIAL IVPB ONE (14:46)
--- NOTE | 2017-04-26 19:42 | CONSULT ---
Consult - text type - Consultation Consultation Note: Thoracic Consultation: Pt seen and examined on 04/27. Consulted for persistent ptx. S/P respiratory arrest with pneumothoraces and ct placement in right and left. Consulted for management of pneumothorax on right. Discussed in depth with Dr. Owens. Currently no air-leak but possible, small pneumothorax. I assessed pleurovac. Not tidaling. No air-leak on cough. Cough with significant sputum production. Recommend water seal in next day or two and remove when respiratory status improved enough to start considering discharge. I have spent >40 minutes in this consultation with >50% in counseling and coordination of care with Dr. Owens and his team and is the assessment of the patient's history, physical, and imaging.
[2017-04-26] MEDS: levETIRAcetam 500 MG/5 ML INJECTION VIAL IVPB SCH (21:09)
[2017-04-27] MEDS: HYDROCORTISONE SOD SUCCINATE 100 MG/2 ML VIAL IVPB SCH ×4 (02:30→19:41)
[2017-04-27] MEDS ORDERED: HEMOQUE CONTROL SOLUTION ONE (05:07)
[2017-04-27 06:17] LABS: MCH 26.9 pg (25.7-33.7); MCHC 32.3 g/dl (32.0-36.0); MEAN CELL VOLUME 83.3 fl (80-96); MEAN PLT VOLUME 8.8 fl (7.5-11.1); PLATELET COUNT 262 K/MM3 (134-434); RDW 17.3 % (11.6-15.6); WHITE BLOOD COUNT 7.1 K/mm3 (4.0-10.0)
[2017-04-27 06:52] LABS: ALBUMIN 1.8 g/dl (3.4-5.0); ANION GAP 9 (8-16); CALCIUM 7.8 mg/dL (8.5-10.1); CO2 34 mmol/L (21-32); CREATININE 0.6 mg/dL (0.55-1.02); GLUCOSE,RANDOM 95 mg/dL (74-106); MAGNESIUM 1.8 mg/dL (1.8-2.4); SGOT/AST 16 U/L (15-37); SGPT/ALT 20 U/L (12-78)
[2017-04-27 06:54] LABS: ALK PHOS 45 U/L (45-117); BILIRUBIN,TOTAL 0.7 mg/dL (0.2-1.0); TOT PROT 4.9 g/dl (6.4-8.2)
[2017-04-27 07:32] LABS: ARTERIAL BLD GAS O2 SATURATION 89.4 % (90-98.9); ARTERIAL BLOOD GAS BASE EXCESS 9.1 meq/l (-2-2); ARTERIAL BLOOD GAS PO2 62.8 mmHg (80-100); ARTERIAL BLOOD GAS pH 7.44 (7.35-7.45)
[2017-04-27 07:36] LABS: ALLENS TEST POSITIVE; ART PUNCT SITE RIGHT RADIAL; LPM/O2% 4L; PT. ON O2? YES
--- NOTE | 2017-04-27 09:00 | PN ---
Progress Note (short form) - Note Progress Note: Patient seen and examined in the ICU. Remains extubated. Awake and alert. Denies CP or SOB. Off pressors. No air leak on CT noted. CXR: Right CT intact / possible minimal Right apical PTX / I do not see a PTX on the Left Intake & Output 04/24/17 04/25/17 04/26/17 04/27/17 23:59 23:59 23:59 23:59 Intake Total 1300 5015 1509.6 Output Total 900 2500 350 Balance 400 2515 1159.6 Weight 38 lb 38 lb 92 lb 8 oz Last Vital Signs Temp Pulse Resp BP Pulse Ox 97.8 F 74 16 104/71 97 04/27/17 06:00 04/27/17 07:00 04/27/17 07:00 04/27/17 07:00 04/26/17 21:00 Active Medications Albuterol Sulfate (Ventolin 0.083% Nebulizer Soln -) 1 amp NEB Q4H PRN PRN Reason: SHORT OF BREATH/WHEEZING Arformoterol Tartrate (Brovana (Restricted To Pulmonology/Resp) -) 1 amp NEB BID RAISSA Last Admin: 04/26/17 21:50 Dose: 1 amp Heparin Sodium (Porcine) (Heparin -) 5,000 unit SQ BID RAISSA Last Admin: 04/26/17 21:01 Dose: 5,000 unit Hydrocortisone Sodium Succinate (Solu-Cortef -) 50 mg IVPB Q6H-IV RAISSA Last Admin: 04/27/17 02:30 Dose: 50 mg Sodium Chloride (Normal Saline -) 1,000 mls @ 125 mls/hr IV ASDIR RAISSA Last Admin: 04/26/17 13:47 Dose: 125 mls/hr Vasopressin 50 units/ Sodium (Chloride) 100 mls @ 4.8 mls/hr IVPB ASDIR RAISSA; 2.4 UNITS/HR PRN Reason: Protocol Last Titration: 04/27/17 02:35 Dose: 0 units/hr Ertapenem 1 gm/ Sodium (Chloride) 50 mls @ 50 mls/hr IVPB DAILY RAISSA PRN Reason: Protocol Last Admin: 04/26/17 12:05 Dose: 50 mls/hr Levetiracetam (Keppra Injection -) 1,000 mg IVPB BID RIASSA Last Admin: 04/26/17 21:09 Dose: 1,000 mg Constitutional: Yes: Extubated, NAD Eyes: Yes: PERRL HENT: Yes: Atraumatic, Normocephalic Neck: Yes: Trachea Midline Cardiovascular: Yes: Regular Rate and Rhythm, S1, S2 Respiratory: Yes: Right CT without air leak, scattered rhonchi Gastrointestinal: Yes: Normal Bowel Sounds, Soft Renal/: Yes: Collier Present Extremities: Yes: Cool Peripheral Pulses WNL: Yes Neurological: Yes: non-focal Labs: Laboratory Results - last 24 hr 04/25/17 04/26/17 04/27/17 20:50 06:34 05:35 WBC 7.1 RBC 2.59 L Hgb 7.0 L D Hct 21.6 L MCV 83.3 MCH 26.9 MCHC 32.3 RDW 17.3 H Plt Count 262 D MPV 8.8 Puncture Site ABG pH ABG pCO2 at Pt Temp ABG pO2 at Pt Temp ABG HCO3 ABG O2 Sat (Measured) ABG O2 Content ABG Base Excess Akash Test Oxygen Flow Rate PEEP Sodium Potassium Chloride Carbon Dioxide Anion Gap BUN Creatinine Creat Clearance w eGFR POC Glucometer 143.03815 Random Glucose Calcium Phosphorus Magnesium Total Bilirubin AST ALT Alkaline Phosphatase Total Protein Albumin Free T3 1.1 L 04/27/17 04/27/17 05:35 07:35 WBC RBC Hgb Hct MCV MCH MCHC RDW Plt Count MPV Puncture Site Right radial ABG pH 7.44 ABG pCO2 at Pt Temp 51.3 H ABG pO2 at Pt Temp 62.8 L D ABG HCO3 34.0 H ABG O2 Sat (Measured) 89.4 L ABG O2 Content 9.5 L* ABG Base Excess 9.1 H Akash Test Positive Oxygen Flow Rate 4l PEEP 0.0 Sodium 137 Potassium 3.5 Chloride 94 L Carbon Dioxide 34 H Anion Gap 9 BUN 30 H Creatinine 0.6 D Creat Clearance w eGFR > 60 POC Glucometer Random Glucose 95 D Calcium 7.8 L Phosphorus 4.0 Magnesium 1.8 Total Bilirubin 0.7 D AST 16 ALT 20 Alkaline Phosphatase 45 Total Protein 4.9 L Albumin 1.8 L Free T3 Problem List - Problems (1) Respiratory failure Code(s): J96.90 - RESPIRATORY FAILURE, UNSP, UNSP W HYPOXIA OR HYPERCAPNIA Qualifiers: Chronicity: acute Respiratory failure complication: unspecified whether with hypoxia or hypercapnia Qualified Code(s): J96.00 - Acute respiratory failure, unspecified whether with hypoxia or hypercapnia (2) Acute renal failure Code(s): N17.9 - ACUTE KIDNEY FAILURE, UNSPECIFIED Qualifiers: Acute renal failure type: unspecified Qualified Code(s): N17.9 - Acute kidney failure, unspecified (3) Altered mental status Code(s): R41.82 - ALTERED MENTAL STATUS, UNSPECIFIED (4) Hypotension Code(s): I95.9 - HYPOTENSION, UNSPECIFIED Assessment/Plan O2 to maintain saturation Continue CT to suction for now -> I do not see a PTX on the Left -> will observe closely Monitor off pressors CTS evaluation noted Decrease IVF BD TX ABX per ID Wean steroids Trial of PO Dr Owens CCTime 35" The care of this patient involved high complexity decision making to prevent further life threatening deterioration of the patient's condition and/or to evaluate & treat vital organ system(s) failure or risk of failure.
[2017-04-27] MEDS ORDERED: PT OWN MED DRAWER 7, Y5N ONE (09:41)
[2017-04-27] MEDS: HEPARIN NA (PORCINE) 5,000 UNITS/ML 1ML VIAL SQ SCH (09:44)
[2017-04-27] MEDS: SODIUM CHLORIDE 1,000 ML IV SCH (09:44)
[2017-04-27] MEDS: levETIRAcetam 500 MG/5 ML INJECTION VIAL IVPB SCH ×2 (09:44→22:11)
[2017-04-27] MEDS ORDERED: morphine CARPU-JECT 2 MG/1 ML DISP.SYRIN ONE (09:46)
[2017-04-27] MEDS: morphine CARPU-JECT 4 MG/1 ML DISP.SYRIN IVPUSH PRN ×4 (09:48→23:40)
--- NOTE | 2017-04-27 10:02 | PN ---
Progress Note, Physician History of Present Illness: Awke but lethargic No c/o chest pain/ dyspnea Appears slightly tachypneic at rest Afebrile Off pressors - Current Medication List Current Medications: Active Medications Albuterol Sulfate (Ventolin 0.083% Nebulizer Soln -) 1 amp NEB Q4H PRN PRN Reason: SHORT OF BREATH/WHEEZING Arformoterol Tartrate (Brovana (Restricted To Pulmonology/Resp) -) 1 amp NEB BID [facility] Last Admin: 04/26/17 21:50 Dose: 1 amp Heparin Sodium (Porcine) (Heparin -) 5,000 unit SQ BID RAISSA Last Admin: 04/26/17 21:01 Dose: 5,000 unit Hydrocortisone Sodium Succinate (Solu-Cortef -) 25 mg IVPB Q8H RAISSA Vasopressin 50 units/ Sodium (Chloride) 100 mls @ 4.8 mls/hr IVPB ASDIR RAISSA; 2.4 UNITS/HR PRN Reason: Protocol Last Titration: 04/27/17 02:35 Dose: 0 units/hr Ertapenem 1 gm/ Sodium (Chloride) 50 mls @ 50 mls/hr IVPB DAILY RAISSA PRN Reason: Protocol Last Admin: 04/26/17 12:05 Dose: 50 mls/hr Sodium Chloride (Normal Saline -) 1,000 mls @ 50 mls/hr IV ASDIR RAISSA Levetiracetam (Keppra Injection -) 1,000 mg IVPB BID [facility] Last Admin: 04/26/17 21:09 Dose: 1,000 mg Morphine Sulfate (Morphine Injection -) 2 mg IVPUSH Q3H PRN PRN Reason: PAIN - Objective Vital Signs: Vital Signs Temperature 97.8 F 04/27/17 06:00 Pulse Rate 74 04/27/17 07:00 Respiratory Rate 16 04/27/17 07:00 Blood Pressure 104/71 04/27/17 07:00 O2 Sat by Pulse Oximetry (%) 97 04/26/17 21:00 Constitutional: Yes: Well Nourished, Cachectic Eyes: Yes: Conjunctiva Clear Neck: Yes: Supple Cardiovascular: Yes: Regular Rate and Rhythm, S1, S2 Respiratory: Yes: Diminished, Other (decreased BS R lung field rhonchi/ crepitations L lung field Chest tube R lung) Gastrointestinal: Yes: Normal Bowel Sounds, Soft. No: Tenderness Extremities: Yes: Other (+ amputated digits, hands) Edema: No Labs: CBC, BMP 04/27/17 05:35 04/27/17 05:35 INR, PTT INR 1.64 (0.82-1.09) H 04/26/17 05:20 Assessment/Plan Sepsis - improved S/P respiratory failure- extubated Altered mental status- improved Hx ESBL Continue empiric ertapenem Await c/s Contact precautions
--- NOTE | 2017-04-27 10:25 | PN ---
Progress Note, Physician Chief Complaint: The patient seen in the ICU. Awake, alert. I.O line just removed. S/p Placement of right IJ line. Maintains good urine output. History of Present Illness: This is a 52 year old woman with PMhx of Scleroderma, CREST Syndrome, COPD, CHF , Narcotic dependence, Hypothyrodism who presented with AMS and Seizure and found to have PRASHANT, Hyponatremia, Hypokalemia and Pseduohypocalcemia. Pt was found unresponsive at home and had a witnessed seizure in the ED. Pt was intuabted and required a chest tube placement for iatrogenic pnumothorax. She was extubated yesterday. She has had multiple amputations of the fingers because of vascular ischemia. A right chest tube is draining heme-stained fluid. No overt bleeding. - Current Medication List Current Medications: Active Medications Albuterol Sulfate (Ventolin 0.083% Nebulizer Soln -) 1 amp NEB Q4H PRN PRN Reason: SHORT OF BREATH/WHEEZING Arformoterol Tartrate (Brovana (Restricted To Pulmonology/Resp) -) 1 amp NEB BID [facility] Last Admin: 04/26/17 21:50 Dose: 1 amp Heparin Sodium (Porcine) (Heparin -) 5,000 unit SQ BID RAISSA Last Admin: 04/27/17 09:44 Dose: 5,000 unit Hydrocortisone Sodium Succinate (Solu-Cortef -) 25 mg IVPB Q8H RAISSA Last Admin: 04/27/17 09:44 Dose: 25 mg Vasopressin 50 units/ Sodium (Chloride) 100 mls @ 4.8 mls/hr IVPB ASDIR RAISSA; 2.4 UNITS/HR PRN Reason: Protocol Last Titration: 04/27/17 02:35 Dose: 0 units/hr Ertapenem 1 gm/ Sodium (Chloride) 50 mls @ 50 mls/hr IVPB DAILY RAISSA PRN Reason: Protocol Last Admin: 04/26/17 12:05 Dose: 50 mls/hr Sodium Chloride (Normal Saline -) 1,000 mls @ 50 mls/hr IV ASDIR RAISSA Last Admin: 04/27/17 09:44 Dose: 50 mls/hr Levetiracetam (Keppra Injection -) 1,000 mg IVPB BID RAISSA Last Admin: 04/27/17 09:44 Dose: 1,000 mg Morphine Sulfate (Morphine Injection -) 2 mg IVPUSH Q3H PRN PRN Reason: PAIN Last Admin: 04/27/17 09:48 Dose: 2 mg - Objective Vital Signs: Vital Signs Temperature 97.8 F 04/27/17 06:00 Pulse Rate 74 04/27/17 07:00 Respiratory Rate 16 04/27/17 07:00 Blood Pressure 104/71 04/27/17 07:00 O2 Sat by Pulse Oximetry (%) 97 04/26/17 21:00 Constitutional: Yes: Calm, Anxious, Mild Distress, Pallor HENT: Yes: Normocephalic Neck: Yes: Decreased ROM Cardiovascular: Yes: Regular Rate and Rhythm, S1, S2 Respiratory: Yes: Regular, Diminished, Other (Right chest tube in place) Extremities: Yes: Amputation Neurological: Yes: Alert Psychiatric: Yes: Alert, Oriented Labs: CBC, BMP 04/27/17 05:35 04/27/17 05:35 INR, PTT INR 1.64 (0.82-1.09) H 04/26/17 05:20 Assessment/Plan This is a 52 year old woman with PMhx of Scleroderma, CREST Syndrome, COPD, CHF , Narcotic dependence, Hypothyrodism who presented with AMS and Seizure and found to have PRASHANT, Hyponatremia, Hypokalemia and Pseduohypocalcemia ( Profound Hypoalbuminemia) Maintains good urine output. Has profound anemia. ( Hgb dropped from 9.5 to 7.0) ? PRBC transfusion. Electrolytes in better range since admission. IV fluids well tolerated. Will continue the same. Michelle Washington MD
[2017-04-27] MEDS: ARFORMOTEROL TARTRATE 15 MCG/2 ML VIAL NEB SCH ×2 (10:45→22:19)
--- NOTE | 2017-04-27 11:13 | PN ---
Progress Note, Physician Chief Complaint: In ICU; extubared; awake alert able to understand and answer appropriately denies pain; askd for more juice to drink chest tube still in meds chart consults tests reviewed - Current Medication List Current Medications: Active Medications Albuterol Sulfate (Ventolin 0.083% Nebulizer Soln -) 1 amp NEB Q4H PRN PRN Reason: SHORT OF BREATH/WHEEZING Arformoterol Tartrate (Brovana (Restricted To Pulmonology/Resp) -) 1 amp NEB BID [facility] Last Admin: 04/26/17 21:50 Dose: 1 amp Heparin Sodium (Porcine) (Heparin -) 5,000 unit SQ BID [facility] Last Admin: 04/27/17 09:44 Dose: 5,000 unit Hydrocortisone Sodium Succinate (Solu-Cortef -) 25 mg IVPB Q8H [facility] Last Admin: 04/27/17 09:44 Dose: 25 mg Vasopressin 50 units/ Sodium (Chloride) 100 mls @ 4.8 mls/hr IVPB ASDIR [facility]; 2.4 UNITS/HR PRN Reason: Protocol Last Titration: 04/27/17 02:35 Dose: 0 units/hr Ertapenem 1 gm/ Sodium (Chloride) 50 mls @ 50 mls/hr IVPB DAILY [facility] PRN Reason: Protocol Last Admin: 04/26/17 12:05 Dose: 50 mls/hr Sodium Chloride (Normal Saline -) 1,000 mls @ 50 mls/hr IV ASDIR [facility] Last Admin: 04/27/17 09:44 Dose: 50 mls/hr Levetiracetam (Keppra Injection -) 1,000 mg IVPB BID [facility] Last Admin: 04/27/17 09:44 Dose: 1,000 mg Morphine Sulfate (Morphine Injection -) 2 mg IVPUSH Q3H PRN PRN Reason: PAIN Last Admin: 04/27/17 09:48 Dose: 2 mg - Objective Vital Signs: Vital Signs Temperature 97.8 F 04/27/17 06:00 Pulse Rate 74 04/27/17 07:00 Respiratory Rate 16 04/27/17 07:00 Blood Pressure 104/71 04/27/17 07:00 O2 Sat by Pulse Oximetry (%) 97 04/26/17 21:00 Constitutional: Yes: Calm Eyes: Yes: Conjunctiva Clear HENT: Yes: Atraumatic Neck: Yes: Supple Cardiovascular: Yes: Regular Rate and Rhythm Respiratory: Yes: Diminished Gastrointestinal: Yes: Soft. No: Distention, Tenderness Genitourinary: No: CVA Tenderness - Left, CVA Tenderness - Right, Hematuria Musculoskeletal: No: Joint Stiffness, Joint Swelling Extremities: Yes: Other (few fingers /hands old amputations). No: Cold, Cool, Cyanosis, Erythema Edema: No Peripheral Pulses WNL: Yes Integumentary: No: Rash, Venous Stasis Changes Neurological: Yes: Alert, Oriented ...Motor Strength: WNL Psychiatric: Yes: Alert, Oriented. No: Agitated, Suicidal Ideation Labs: CBC, BMP 04/27/17 05:35 04/27/17 05:35 INR, PTT INR 1.64 (0.82-1.09) H 04/26/17 05:20 - ....Imaging Chest X-ray: Report Reviewed Cat Scan: Report Reviewed Other: Report Reviewed Assessment/Plan This is a 52 year old woman with PMhx of Scleroderma, CREST Syndrome, COPD, CHF , Narcotic dependence, Hypothyrodism who presented with AMS and Seizure and found to have PRASHANT, Hyponatremia, Hypokalemia and Pseduohypocalcemia. Pt was found unresponsive at home and had a witnessed seizure in the ED. Pt was intuabted and required a chest tube placement for iatrogenic pneumothorax. She was extubated yesterday. She has had multiple amputations of the fingers because of vascular ischemia. A right chest tube is draining heme-stained fluid. No overt bleeding. ICU; extubated pulmonary and CT Sx f/u chest CT per pulm and CT Sx neurology f/u; IV keppra for seizures pfx s/p ARF better with IVF f/u labs, cultures prognosis guarded d/w pt and staff t time 40 min
[2017-04-27] MEDS: ERTAPENEM SODIUM 1 GM in SODIUM CHLORIDE 50 ML IVPB SCH (18:15)
[2017-04-27] MEDS: VASOPRESSIN 50 UNITS in SODIUM CHLORIDE 97.5 ML IVPB SCH (20:48)
[2017-04-28] MEDS: HEPARIN NA (PORCINE) 5,000 UNITS/ML 1ML VIAL SQ SCH ×3 (02:11→22:23)
[2017-04-28] MEDS: PANTOPRAZOLE 40 MG TABLET (FP) PO SCH ×3 (02:20→22:24)
[2017-04-28] MEDS: HYDROCORTISONE SOD SUCCINATE 100 MG/2 ML VIAL IVPB SCH ×3 (02:20→17:44)
[2017-04-28] MEDS: morphine CARPU-JECT 4 MG/1 ML DISP.SYRIN IVPUSH PRN ×5 (04:04→20:41)
[2017-04-28 06:24] LABS: MCH 27.1 pg (25.7-33.7); MCHC 32.4 g/dl (32.0-36.0); MEAN CELL VOLUME 83.4 fl (80-96); MEAN PLT VOLUME 8.8 fl (7.5-11.1); PLATELET COUNT 301 K/MM3 (134-434); RDW 17.1 % (11.6-15.6); WHITE BLOOD COUNT 8.4 K/mm3 (4.0-10.0)
[2017-04-28 07:01] LABS: ALBUMIN 1.8 g/dl (3.4-5.0); ANION GAP 4 (8-16); CALCIUM 7.9 mg/dL (8.5-10.1); CO2 37 mmol/L (21-32); CREATININE 0.6 mg/dL (0.55-1.02); GLUCOSE,RANDOM 131 mg/dL (74-106); SGOT/AST 14 U/L (15-37); SGPT/ALT 19 U/L (12-78)
[2017-04-28 07:03] LABS: ALK PHOS 41 U/L (45-117); BILIRUBIN,TOTAL 0.2 mg/dL (0.2-1.0); TOT PROT 5.1 g/dl (6.4-8.2)
[2017-04-28] MEDS: SODIUM CHLORIDE 1,000 ML IV SCH (09:07)
[2017-04-28] MEDS: levETIRAcetam 500 MG/5 ML INJECTION VIAL IVPB SCH ×2 (09:08→22:23)
--- NOTE | 2017-04-28 09:10 | PN ---
Progress Note (short form) - Note Progress Note: Patient seen and examined in the ICU. Remains extubated. Awake and alert. (+) discomfort at the Right CT site. Off pressors. No air leak on CT noted. CXR: Right CT intact / small Right apical PTX / No PTX on the Left Intake & Output 04/25/17 04/26/17 04/27/17 04/28/17 23:59 23:59 23:59 23:59 Intake Total 1300 5015 1509.6 Output Total 900 2500 650 650 Balance 400 2515 859.6 -650 Weight 38 lb 38 lb 92 lb 8 oz 89 lb 6.4 oz Last Vital Signs Temp Pulse Resp BP Pulse Ox 98.1 F 72 21 136/85 98 04/28/17 06:21 04/28/17 06:21 04/28/17 06:21 04/28/17 06:21 04/27/17 21:00 Active Medications Albuterol Sulfate (Ventolin 0.083% Nebulizer Soln -) 1 amp NEB Q4H PRN PRN Reason: SHORT OF BREATH/WHEEZING Arformoterol Tartrate (Brovana (Restricted To Pulmonology/Resp) -) 1 amp NEB BID [facility] Last Admin: 04/27/17 22:19 Dose: 1 amp Heparin Sodium (Porcine) (Heparin -) 5,000 unit SQ BID [facility] Last Admin: 04/28/17 02:11 Dose: 5,000 unit Hydrocortisone Sodium Succinate (Solu-Cortef -) 25 mg IVPB Q8H [facility] Last Admin: 04/28/17 02:20 Dose: 25 mg Vasopressin 50 units/ Sodium (Chloride) 100 mls @ 4.8 mls/hr IVPB ASDIR [facility]; 2.4 UNITS/HR PRN Reason: Protocol Last Admin: 04/27/17 20:48 Dose: Not Given Ertapenem 1 gm/ Sodium (Chloride) 50 mls @ 50 mls/hr IVPB DAILY [facility] PRN Reason: Protocol Last Admin: 04/27/17 18:15 Dose: 50 mls/hr Sodium Chloride (Normal Saline -) 1,000 mls @ 50 mls/hr IV ASDIR [facility] Last Admin: 04/27/17 09:44 Dose: 50 mls/hr Levetiracetam (Keppra Injection -) 1,000 mg IVPB BID [facility] Last Admin: 04/27/17 22:11 Dose: 1,000 mg Morphine Sulfate (Morphine Injection -) 2 mg IVPUSH Q3H PRN PRN Reason: PAIN Last Admin: 04/28/17 04:04 Dose: 2 mg Pantoprazole Sodium (Protonix -) 40 mg PO BID [facility] Last Admin: 04/28/17 02:20 Dose: 40 mg Potassium Chloride (K-Dur -) 40 meq PO ONCE ONE Stop: 04/28/17 09:16 Constitutional: Yes: Extubated, uncomfortbable due to pain Eyes: Yes: PERRL HENT: Yes: Atraumatic, Normocephalic Neck: Yes: Trachea Midline Cardiovascular: Yes: Regular Rate and Rhythm, S1, S2 Respiratory: Yes: Right CT without air leak, scattered rhonchi Gastrointestinal: Yes: Normal Bowel Sounds, Soft Renal/: Yes: Collier Present Extremities: Yes: Cool Peripheral Pulses WNL: Yes Neurological: Yes: non-focal Labs: Laboratory Results - last 24 hr 04/25/17 04/28/17 04/28/17 20:50 05:35 05:35 WBC 8.4 RBC 2.66 L Hgb 7.2 L Hct 22.2 L MCV 83.4 MCH 27.1 MCHC 32.4 RDW 17.1 H Plt Count 301 MPV 8.8 Sodium 139 Potassium 3.0 L Chloride 98 Carbon Dioxide 37 H Anion Gap 4 L BUN 28 H Creatinine 0.6 Creat Clearance w eGFR > 60 Random Glucose 131 H D Calcium 7.9 L Total Bilirubin 0.2 D AST 14 L ALT 19 Alkaline Phosphatase 41 L Total Protein 5.1 L Albumin 1.8 L Blood Type O POSITIVE Antibody Screen Negative Crossmatch See Detail Problem List - Problems (1) Respiratory failure Code(s): J96.90 - RESPIRATORY FAILURE, UNSP, UNSP W HYPOXIA OR HYPERCAPNIA Qualifiers: Chronicity: acute Respiratory failure complication: unspecified whether with hypoxia or hypercapnia Qualified Code(s): J96.00 - Acute respiratory failure, unspecified whether with hypoxia or hypercapnia (2) Acute renal failure Code(s): N17.9 - ACUTE KIDNEY FAILURE, UNSPECIFIED Qualifiers: Acute renal failure type: unspecified Qualified Code(s): N17.9 - Acute kidney failure, unspecified (3) Altered mental status Code(s): R41.82 - ALTERED MENTAL STATUS, UNSPECIFIED (4) Hypotension Code(s): I95.9 - HYPOTENSION, UNSPECIFIED Assessment/Plan O2 to maintain saturation Continue CT to suction for now Monitor off pressors BD TX ABX per ID Wean steroids in AM PO as tolerated Normal transfusion thresholds (transfuse Hgb <7) Dr Owens CCTime 35" The care of this patient involved high complexity decision making to prevent further life threatening deterioration of the patient's condition and/or to evaluate & treat vital organ system(s) failure or risk of failure.
[2017-04-28] MEDS: ERTAPENEM SODIUM 1 GM in SODIUM CHLORIDE 50 ML IVPB SCH (09:12)
[2017-04-28] MEDS ORDERED: POTASSIUM CHLORIDE 20 MEQ PREMIX IVPB 100 ML IVPB ONE (09:14)
[2017-04-28] MEDS ORDERED: POTASSIUM CHLORIDE ORAL LIQUID 20 MEQ/15 ML PO ONE (09:14)
[2017-04-28] MEDS ORDERED: POTASSIUM CHLORIDE TABS 20 MEQ TABLET.ER (FP) PO ONE (09:15)
[2017-04-28] MEDS ORDERED: KCL 20 MEQ PREMIX BAG 100 ML IVPB ONE (10:00)
[2017-04-28] MEDS: ARFORMOTEROL TARTRATE 15 MCG/2 ML VIAL NEB SCH ×2 (10:30→21:41)
--- NOTE | 2017-04-28 10:47 | PN ---
Progress Note, Physician History of Present Illness: Awake, alert C/O generalized pain Breathing non-labored Afebrile WBC WNL BC no growth - Current Medication List Current Medications: Active Medications Albuterol Sulfate (Ventolin 0.083% Nebulizer Soln -) 1 amp NEB Q4H PRN PRN Reason: SHORT OF BREATH/WHEEZING Arformoterol Tartrate (Brovana (Restricted To Pulmonology/Resp) -) 1 amp NEB BID [facility] Last Admin: 04/27/17 22:19 Dose: 1 amp Heparin Sodium (Porcine) (Heparin -) 5,000 unit SQ BID [facility] Last Admin: 04/28/17 09:08 Dose: 5,000 unit Hydrocortisone Sodium Succinate (Solu-Cortef -) 25 mg IVPB Q8H [facility] Last Admin: 04/28/17 09:10 Dose: 25 mg Vasopressin 50 units/ Sodium (Chloride) 100 mls @ 4.8 mls/hr IVPB ASDIR [facility]; 2.4 UNITS/HR PRN Reason: Protocol Last Admin: 04/27/17 20:48 Dose: Not Given Ertapenem 1 gm/ Sodium (Chloride) 50 mls @ 50 mls/hr IVPB DAILY [facility] PRN Reason: Protocol Last Admin: 04/28/17 09:12 Dose: 50 mls/hr Sodium Chloride (Normal Saline -) 1,000 mls @ 50 mls/hr IV ASDIR [facility] Last Admin: 04/28/17 09:07 Dose: 50 mls/hr Potassium Chloride (Potassium Chloride 20 Meq Premix Ivpb -) 100 mls @ 66.667 mls/hr IVPB ONCE ONE Stop: 04/28/17 11:29 Levetiracetam (Keppra Injection -) 1,000 mg IVPB BID [facility] Last Admin: 04/28/17 09:08 Dose: 1,000 mg Morphine Sulfate (Morphine Injection -) 2 mg IVPUSH Q3H PRN PRN Reason: PAIN Last Admin: 04/28/17 09:11 Dose: 2 mg Pantoprazole Sodium (Protonix -) 40 mg PO BID [facility] Last Admin: 04/28/17 09:01 Dose: 40 mg - Objective Vital Signs: Vital Signs Temperature 98.1 F 04/28/17 06:21 Pulse Rate 72 04/28/17 06:21 Respiratory Rate 21 04/28/17 06:21 Blood Pressure 136/85 04/28/17 06:21 O2 Sat by Pulse Oximetry (%) 98 04/27/17 21:00 Constitutional: Yes: No Distress, Cachectic Cardiovascular: Yes: Regular Rate and Rhythm, S1, S2 Respiratory: Yes: Other (decreased BS R lung field rhonchi L chest tube R) Gastrointestinal: Yes: Normal Bowel Sounds, Soft. No: Tenderness Extremities: Yes: Other (amputation of digits, both hands) Edema: No Labs: CBC, BMP 04/28/17 05:35 04/28/17 05:35 INR, PTT INR 1.64 (0.82-1.09) H 04/26/17 05:20 Assessment/Plan Sepsis - improved S/P respiratory failure- extubated Pneumothorax s/p chest tube Altered mental status- improved Hx ESBL Sputum c/s E coli (s) ceftriaxone Has tolerated cephalosporins in past Substitute ceftriaxone 2gn qd
[2017-04-28] MEDS: CEFTRIAXONE 100 ML IVPB SCH (12:03)
--- NOTE | 2017-04-28 13:05 | PN ---
Progress Note, Physician Chief Complaint: The patient seen in the ICU. Comfortable. Reports feeling better, The pain is improving. The right chest tube in place. Urine output 650 ml past 24 hrs. Off pressors. BP stable. History of Present Illness: This is a 52 year old woman with PMhx of Scleroderma, CREST Syndrome, COPD, CHF , Narcotic dependence, Hypothyrodism who presented with AMS and Seizure and found to have PRASHANT, Hyponatremia, Hypokalemia and Pseduohypocalcemia. Pt was found unresponsive at home and had a witnessed seizure in the ED. Pt was intuabted and required a chest tube placement for pneumothorax. She has had multiple amputations of the fingers because of vascular ischemia. A right chest tube is draining heme-stained fluid. No overt bleeding. - Current Medication List Current Medications: Active Medications Albuterol Sulfate (Ventolin 0.083% Nebulizer Soln -) 1 amp NEB Q4H PRN PRN Reason: SHORT OF BREATH/WHEEZING Arformoterol Tartrate (Brovana (Restricted To Pulmonology/Resp) -) 1 amp NEB BID [facility] Last Admin: 04/28/17 10:30 Dose: 1 amp Heparin Sodium (Porcine) (Heparin -) 5,000 unit SQ BID [facility] Last Admin: 04/28/17 09:08 Dose: 5,000 unit Hydrocortisone Sodium Succinate (Solu-Cortef -) 25 mg IVPB Q8H [facility] Last Admin: 04/28/17 09:10 Dose: 25 mg Vasopressin 50 units/ Sodium (Chloride) 100 mls @ 4.8 mls/hr IVPB ASDIR [facility]; 2.4 UNITS/HR PRN Reason: Protocol Last Admin: 04/27/17 20:48 Dose: Not Given Sodium Chloride (Normal Saline -) 1,000 mls @ 50 mls/hr IV ASDIR [facility] Last Admin: 04/28/17 09:07 Dose: 50 mls/hr Ceftriaxone Sodium (Rocephin 2gm Ivpb (Pre-Docked)) 100 mls @ 200 mls/hr IVPB DAILY [facility] Last Admin: 04/28/17 12:03 Dose: 200 mls/hr Levetiracetam (Keppra Injection -) 1,000 mg IVPB BID [facility] Last Admin: 04/28/17 09:08 Dose: 1,000 mg Morphine Sulfate (Morphine Injection -) 2 mg IVPUSH Q3H PRN PRN Reason: PAIN Last Admin: 04/28/17 12:07 Dose: 2 mg Pantoprazole Sodium (Protonix -) 40 mg PO BID [facility] Last Admin: 04/28/17 09:01 Dose: 40 mg - Objective Vital Signs: Vital Signs Temperature 98.1 F 04/28/17 06:21 Pulse Rate 80 04/28/17 10:30 Respiratory Rate 21 04/28/17 06:21 Blood Pressure 136/85 04/28/17 06:21 O2 Sat by Pulse Oximetry (%) 96 04/28/17 10:30 Constitutional: Yes: Calm, Anxious HENT: Yes: Atraumatic, Normocephalic Neck: Yes: Trachea Midline Cardiovascular: Yes: Regular Rate and Rhythm, S1, S2 Respiratory: Yes: Diminished, Other (Right chest tube in place.) Gastrointestinal: Yes: Normal Bowel Sounds, Soft Labs: CBC, BMP 04/28/17 05:35 04/28/17 05:35 INR, PTT INR 1.64 (0.82-1.09) H 04/26/17 05:20 Assessment/Plan This is a 52 year old woman with PMhx of Scleroderma, CREST Syndrome, COPD, CHF , Narcotic dependence, Hypothyrodism who presented with AMS and Seizure and found to have PRASHANT, Hyponatremia, Hypokalemia and Pseduohypocalcemia ( Profound Hypoalbuminemia) Maintains good urine output. Renal functions stable. Hypokalemia, possibly related to the Alkalemia and K loss in the urine. Receiving KCl supplements. Has profound anemia. ( Hgb 7.2). While in a patient with no other co-morbid conditions transfusion has been reported reported to be withheld till Hgb <7 gms, in this patient with multiple co-morbid conditions, including generalized evidence of Vascular ischemia, early transfusion will easily be justified. IV fluids well tolerated. Will continue the same. Michelle Washington MD
--- NOTE | 2017-04-28 14:44 | PN ---
Progress Note, Physician Chief Complaint: in ICU, awake alert, extubated; has pulsating back pain asked for pain meds; prn morphine per ICU team dropped HG, will check abdomen CT r/o retroperitoneal hematoma; hold sq heparin for now transfuse to keep Hg > 8 - Current Medication List Current Medications: Active Medications Albuterol Sulfate (Ventolin 0.083% Nebulizer Soln -) 1 amp NEB Q4H PRN PRN Reason: SHORT OF BREATH/WHEEZING Arformoterol Tartrate (Brovana (Restricted To Pulmonology/Resp) -) 1 amp NEB BID [facility] Last Admin: 04/28/17 10:30 Dose: 1 amp Heparin Sodium (Porcine) (Heparin -) 5,000 unit SQ BID [facility] Last Admin: 04/28/17 09:08 Dose: 5,000 unit Hydrocortisone Sodium Succinate (Solu-Cortef -) 25 mg IVPB Q8H [facility] Last Admin: 04/28/17 09:10 Dose: 25 mg Vasopressin 50 units/ Sodium (Chloride) 100 mls @ 4.8 mls/hr IVPB ASDIR [facility]; 2.4 UNITS/HR PRN Reason: Protocol Last Admin: 04/27/17 20:48 Dose: Not Given Sodium Chloride (Normal Saline -) 1,000 mls @ 50 mls/hr IV ASDIR [facility] Last Admin: 04/28/17 09:07 Dose: 50 mls/hr Ceftriaxone Sodium (Rocephin 2gm Ivpb (Pre-Docked)) 100 mls @ 200 mls/hr IVPB DAILY [facility] Last Admin: 04/28/17 12:03 Dose: 200 mls/hr Levetiracetam (Keppra Injection -) 1,000 mg IVPB BID [facility] Last Admin: 04/28/17 09:08 Dose: 1,000 mg Morphine Sulfate (Morphine Injection -) 2 mg IVPUSH Q3H PRN PRN Reason: PAIN Last Admin: 04/28/17 12:07 Dose: 2 mg Pantoprazole Sodium (Protonix -) 40 mg PO BID [facility] Last Admin: 04/28/17 09:01 Dose: 40 mg - Objective Vital Signs: Vital Signs Temperature 98.9 F 04/28/17 13:52 Pulse Rate 84 04/28/17 12:00 Respiratory Rate 21 04/28/17 13:52 Blood Pressure 127/85 04/28/17 12:00 O2 Sat by Pulse Oximetry (%) 96 04/28/17 10:30 Constitutional: Yes: No Distress, Calm Eyes: Yes: Conjunctiva Clear HENT: Yes: Atraumatic Neck: Yes: Supple Cardiovascular: Yes: Regular Rate and Rhythm Respiratory: Yes: Diminished Gastrointestinal: Yes: Soft. No: Distention, Tenderness Musculoskeletal: No: Joint Stiffness, Joint Swelling Extremities: No: Cold, Cool Edema: No Peripheral Pulses WNL: Yes Integumentary: No: Rash, Venous Stasis Changes Neurological: Yes: Alert ...Motor Strength: WNL Psychiatric: Yes: Alert. No: Agitated Labs: CBC, BMP 04/28/17 05:35 04/28/17 05:35 INR, PTT INR 1.64 (0.82-1.09) H 04/26/17 05:20 - ....Imaging Other: Report Reviewed Assessment/Plan This is a 52 year old woman with PMhx of Scleroderma, CREST Syndrome, COPD, CHF , Narcotic dependence, Hypothyrodism who presented with AMS and Seizure and found to have PRASHANT, Hyponatremia, Hypokalemia and Pseudohypocalcemia. Pt was found unresponsive at home and had a witnessed seizure in the ED. Pt was intubated and required a chest tube placement for iatrogenic pneumothorax. pulmonary and CT Sx f/u abdomen CT r/o retroperitoneal hematoma, hold sq heparin for now morphine prn for pain chest CT DC per pulm and CT Sx anemia: transfuse prn low K, Mg: replete lytes, f/u labs. neurology f/u; IV keppra for seizures pfx per neurology s/p ARF better with IVF f/u labs, cultures prognosis guarded d/w pt and staff
[2017-04-28] MEDS: VASOPRESSIN 50 UNITS in SODIUM CHLORIDE 97.5 ML IVPB SCH (20:37)
[2017-04-29] MEDS: morphine CARPU-JECT 4 MG/1 ML DISP.SYRIN IVPUSH PRN ×7 (00:31→20:01)
[2017-04-29] MEDS: HYDROCORTISONE SOD SUCCINATE 100 MG/2 ML VIAL IVPB SCH ×2 (02:46→10:31)
[2017-04-29 06:51] LABS: BASOPHIL 0.1 % (0-2.0); MCH 28.7 pg (25.7-33.7); MCHC 33.9 g/dl (32.0-36.0); MEAN CELL VOLUME 84.8 fl (80-96); MEAN PLT VOLUME 8.4 fl (7.5-11.1); NEUTROPHILS 87.1 % (42.8-82.8); PLATELET COUNT 203 K/MM3 (134-434); RDW 15.2 % (11.6-15.6); WHITE BLOOD COUNT 7.6 K/mm3 (4.0-10.0)
[2017-04-29 07:14] LABS: ALBUMIN 1.7 g/dl (3.4-5.0); ALK PHOS 33 U/L (45-117); ANION GAP 9 (8-16); BILIRUBIN,TOTAL 0.4 mg/dL (0.2-1.0); CALCIUM 7.3 mg/dL (8.5-10.1); CO2 33 mmol/L (21-32); CREATININE 0.4 mg/dL (0.55-1.02); GLUCOSE,RANDOM 126 mg/dL (74-106); MAGNESIUM 1.5 mg/dL (1.8-2.4); SGOT/AST 11 U/L (15-37); SGPT/ALT 16 U/L (12-78); TOT PROT 4.4 g/dl (6.4-8.2)
--- NOTE | 2017-04-29 07:25 | PN ---
Progress Note, Physician Chief Complaint: ID Day 4 antibiotics Ceftriaxone now Exbutated since I last saw her at admission - Current Medication List Current Medications: Active Medications Albuterol Sulfate (Ventolin 0.083% Nebulizer Soln -) 1 amp NEB Q4H PRN PRN Reason: SHORT OF BREATH/WHEEZING Arformoterol Tartrate (Brovana (Restricted To Pulmonology/Resp) -) 1 amp NEB BID [facility] Last Admin: 04/28/17 21:41 Dose: 1 amp Heparin Sodium (Porcine) (Heparin -) 5,000 unit SQ BID [facility] Last Admin: 04/28/17 22:23 Dose: 5,000 unit Hydrocortisone Sodium Succinate (Solu-Cortef -) 25 mg IVPB Q8H [facility] Last Admin: 04/29/17 02:46 Dose: 25 mg Vasopressin 50 units/ Sodium (Chloride) 100 mls @ 4.8 mls/hr IVPB ASDIR [facility]; 2.4 UNITS/HR PRN Reason: Protocol Last Admin: 04/28/17 20:37 Dose: Not Given Sodium Chloride (Normal Saline -) 1,000 mls @ 50 mls/hr IV ASDIR [facility] Last Admin: 04/28/17 09:07 Dose: 50 mls/hr Ceftriaxone Sodium (Rocephin 2gm Ivpb (Pre-Docked)) 100 mls @ 200 mls/hr IVPB DAILY [facility] Last Admin: 04/28/17 12:03 Dose: 200 mls/hr Levetiracetam (Keppra Injection -) 1,000 mg IVPB BID [facility] Last Admin: 04/28/17 22:23 Dose: 1,000 mg Morphine Sulfate (Morphine Injection -) 2 mg IVPUSH Q3H PRN PRN Reason: PAIN Last Admin: 04/29/17 07:01 Dose: 2 mg Pantoprazole Sodium (Protonix -) 40 mg PO BID [facility] Last Admin: 04/28/17 22:24 Dose: 40 mg - Objective Vital Signs: Vital Signs Temperature 97.5 F L 04/29/17 06:00 Pulse Rate 91 H 04/29/17 06:00 Respiratory Rate 20 04/29/17 06:00 Blood Pressure 135/80 04/29/17 06:00 O2 Sat by Pulse Oximetry (%) 96 04/28/17 21:00 Constitutional: Yes: No Distress Neck: Yes: WNL, Supple Cardiovascular: Yes: Regular Rate and Rhythm, S1, S2 Respiratory: Yes: WNL, Regular, CTA Bilaterally Gastrointestinal: Yes: WNL, Normal Bowel Sounds, Soft Labs: CBC, BMP 04/29/17 05:45 INR, PTT INR 1.64 (0.82-1.09) H 04/26/17 05:20 Problem List - Problems (1) Altered mental status Code(s): R41.82 - ALTERED MENTAL STATUS, UNSPECIFIED (2) Respiratory failure Code(s): J96.90 - RESPIRATORY FAILURE, UNSP, UNSP W HYPOXIA OR HYPERCAPNIA Qualifiers: Qualified Code(s): J96.00 - Acute respiratory failure, unspecified whether with hypoxia or hypercapnia (3) Seizure Code(s): R56.9 - UNSPECIFIED CONVULSIONS Assessment/Plan Microbiology 04/25/17 23:00 Sputum - Endotrachea Suction/Ventilator Gram Stain - Final 04/25/17 23:00 Sputum - Endotrachea Suction/Ventilator Sputum Culture - Final Escherichia Coli 04/25/17 11:20 Urine - Urine - Catheterized Urine Culture - Final NO GROWTH OBTAINED 04/25/17 12:40 Blood - Peripheral Venous Blood Culture - Preliminary NO GROWTH OBTAINED AFTER 72 HOURS, INCUBATION TO CONTINUE FOR 2 DAYS. 04/25/17 12:40 Blood - Peripheral Venous Blood Culture - Preliminary NO GROWTH OBTAINED AFTER 72 HOURS, INCUBATION TO CONTINUE FOR 2 DAYS. Laboratory Tests 04/26/17 04/28/17 04/29/17 05:20 05:35 05:45 WBC 7.6 Hgb 8.2 L D Hct 24.2 L Plt Count 203 D INR 1.64 H BUN 28 H Creatinine 0.6 Total Bilirubin 0.2 D AST 14 L ALT 19 Alkaline Phosphatase 41 L Assessment Respiratory failure Pneumonia E Coli Plan Continue current therapy another 3 days Kindly recall as needed Nicolasa CAVAZOS
[2017-04-29] MEDS ORDERED: POTASSIUM CHLORIDE 20 MEQ PREMIX IVPB 100 ML IVPB SCH (08:00)
[2017-04-29 08:47] LABS: PHOSPHOROUS 1.7 mg/dL (2.5-4.9)
[2017-04-29] MEDS ORDERED: MAG HYDROX/AL HYDROX/SIMETH 355 ML ORAL.SUSP PO PRN (09:10)
[2017-04-29] MEDS: ARFORMOTEROL TARTRATE 15 MCG/2 ML VIAL NEB SCH ×2 (10:04→21:51)
[2017-04-29] MEDS: levETIRAcetam 500 MG/5 ML INJECTION VIAL IVPB SCH ×2 (10:30→21:59)
[2017-04-29] MEDS: SODIUM CHLORIDE 1,000 ML IV SCH (10:30)
[2017-04-29] MEDS: KCL 20 MEQ PREMIX BAG 100 ML IVPB SCH ×3 (10:30→12:30)
[2017-04-29] MEDS: HEPARIN NA (PORCINE) 5,000 UNITS/ML 1ML VIAL SQ SCH ×2 (10:30→21:59)
[2017-04-29] MEDS: PANTOPRAZOLE 40 MG TABLET (FP) PO SCH ×2 (10:31→21:50)
[2017-04-29] MEDS: CEFTRIAXONE 100 ML IVPB SCH (10:31)
[2017-04-29] MEDS ORDERED: POTASSIUM CHLORIDE 20 MEQ PREMIX IVPB 100 ML IVPB ONE ×2 (11:00→20:35)
--- NOTE | 2017-04-29 11:01 | PN ---
Progress Note, Physician Chief Complaint: had some loose stools; low K - will replete some back pain - started on morphine per ICU - Current Medication List Current Medications: Active Medications Al Hydroxide/Mg Hydroxide (Mylanta Suspension -) 30 ml PO Q6HPO PRN PRN Reason: INDIGESTION Albuterol Sulfate (Ventolin 0.083% Nebulizer Soln -) 1 amp NEB Q4H PRN PRN Reason: SHORT OF BREATH/WHEEZING Arformoterol Tartrate (Brovana (Restricted To Pulmonology/Resp) -) 1 amp NEB BID [facility] Last Admin: 04/29/17 10:04 Dose: 1 amp Heparin Sodium (Porcine) (Heparin -) 5,000 unit SQ BID [facility] Last Admin: 04/29/17 10:30 Dose: 5,000 unit Hydrocortisone Sodium Succinate (Solu-Cortef -) 25 mg IVPB Q8H [facility] Last Admin: 04/29/17 10:31 Dose: 25 mg Sodium Chloride (Normal Saline -) 1,000 mls @ 50 mls/hr IV ASDIR [facility] Last Admin: 04/29/17 10:30 Dose: Not Given Ceftriaxone Sodium (Rocephin 2gm Ivpb (Pre-Docked)) 100 mls @ 200 mls/hr IVPB DAILY [facility] Last Admin: 04/29/17 10:31 Dose: 200 mls/hr Potassium Chloride (Potassium Chloride 20 Meq Premix Ivpb -) 100 mls @ 100 mls/ hr IVPB Q1H [facility] Stop: 04/29/17 11:29 Last Admin: 04/29/17 10:30 Dose: 100 mls/hr Levetiracetam (Keppra Injection -) 1,000 mg IVPB BID [facility] Last Admin: 04/29/17 10:30 Dose: 1,000 mg Morphine Sulfate (Morphine Injection -) 2 mg IVPUSH Q3H PRN PRN Reason: PAIN Last Admin: 04/29/17 10:32 Dose: 2 mg Pantoprazole Sodium (Protonix -) 40 mg PO BID [facility] Last Admin: 04/29/17 10:31 Dose: 40 mg Potassium Chloride (Potassium Chloride 20 Meq Premix Ivpb -) 20 meq IVPB ONCE ONE Stop: 04/29/17 11:01 Potassium Chloride (K-Dur -) 40 meq PO DAILY [facility] - Objective Vital Signs: Vital Signs Temperature 97.5 F L 04/29/17 06:00 Pulse Rate 89 04/29/17 10:04 Respiratory Rate 20 04/29/17 06:00 Blood Pressure 135/80 04/29/17 06:00 O2 Sat by Pulse Oximetry (%) 95 04/29/17 10:04 Constitutional: Yes: No Distress, Calm Eyes: Yes: Conjunctiva Clear HENT: Yes: Atraumatic Neck: Yes: Supple Cardiovascular: Yes: Regular Rate and Rhythm Respiratory: Yes: Diminished Gastrointestinal: Yes: Soft. No: Distention, Tenderness Genitourinary: No: Hematuria Musculoskeletal: No: Joint Stiffness, Joint Swelling Edema: No Peripheral Pulses WNL: Yes Neurological: Yes: Alert ...Motor Strength: WNL Psychiatric: Yes: Alert. No: Agitated, Suicidal Ideation Labs: CBC, BMP 04/29/17 05:45 04/29/17 05:45 INR, PTT INR 1.64 (0.82-1.09) H 04/26/17 05:20 - ....Imaging Other: Report Reviewed Assessment/Plan This is a 52 year old woman with PMhx of Scleroderma, CREST Syndrome, COPD, CHF , Narcotic dependence, Hypothyrodism who presented with AMS and Seizure and found to have PRASHANT, Hyponatremia, Hypokalemia and Pseudohypocalcemia. Pt was found unresponsive at home and had a witnessed seizure in the ED. Pt was intubated and required a chest tube placement for iatrogenic pneumothorax. pulmonary and CT Sx f/u chest CT DC per pulm and CT Sx anemia: transfuse prn low K, Mg: replete lytes, f/u labs. neurology f/u; IV keppra for seizures pfx s/p ARF better with IVF f/u labs, cultures prognosis guarded d/w pt and staff
[2017-04-29] MEDS ORDERED: MAGNESIUM SULF 50% (8.12 MEQ/2 ML-1 GM VIAL) IVPB ONE ×2 (11:30→18:22)
[2017-04-29] MEDS ORDERED: POTASSIUM CHLORIDE TABS 20 MEQ TABLET.ER (FP) PO SCH (12:00)
[2017-04-29] MEDS ORDERED: KCL 20 MEQ PREMIX BAG 100 ML IVPB ONE (12:15)
--- NOTE | 2017-04-29 12:15 | PN ---
Teaching Attending Note Name of Resident: Vineet Garcia ATTENDING PHYSICIAN STATEMENT I saw and evaluated the patient. I reviewed the resident's note and discussed the case with the resident. I agree with the resident's findings and plan as documented. SUBJECTIVE: Patient seen and examined in the ICU. Remains extubated. Awake and alert. Some discomfort at the Right CT site. Remains off pressors. No air leak on CT noted. CXR: Right CT intact / minimal Right apical PTX / No PTX on the Left Intake & Output 04/26/17 04/27/17 04/28/17 04/29/17 23:59 23:59 23:59 23:59 Intake Total 5015 1509.6 987 950 Output Total 2500 650 1250 1420 Balance 2515 859.6 -263 -470 Weight 38 lb 92 lb 8 oz 89 lb 6.4 oz 91 lb Last Vital Signs Temp Pulse Resp BP Pulse Ox 97.5 F L 89 26 H 122/74 95 04/29/17 06:00 04/29/17 10:04 04/29/17 10:00 04/29/17 10:00 04/29/17 10:04 Active Medications Al Hydroxide/Mg Hydroxide (Mylanta Suspension -) 30 ml PO Q6HPO PRN PRN Reason: INDIGESTION Albuterol Sulfate (Ventolin 0.083% Nebulizer Soln -) 1 amp NEB Q4H PRN PRN Reason: SHORT OF BREATH/WHEEZING Arformoterol Tartrate (Brovana (Restricted To Pulmonology/Resp) -) 1 amp NEB BID [facility]ISSA Last Admin: 04/29/17 10:04 Dose: 1 amp Heparin Sodium (Porcine) (Heparin -) 5,000 unit SQ BID [facility]IS[facility] Last Admin: 04/29/17 10:30 Dose: 5,000 unit Hydrocortisone Sodium Succinate (Solu-Cortef -) 25 mg IVPB Q8H [facility]ISSA Last Admin: 04/29/17 10:31 Dose: 25 mg Sodium Chloride (Normal Saline -) 1,000 mls @ 50 mls/hr IV ASDIR [facility] Last Admin: 04/29/17 10:30 Dose: Not Given Ceftriaxone Sodium (Rocephin 2gm Ivpb (Pre-Docked)) 100 mls @ 200 mls/hr IVPB DAILY [facility] Last Admin: 04/29/17 10:31 Dose: 200 mls/hr Potassium Chloride (Potassium Chloride 20 Meq Premix Ivpb -) 100 mls @ 100 mls/ hr IVPB ONCE ONE Stop: 04/29/17 13:14 Levetiracetam (Keppra Injection -) 1,000 mg IVPB BID [facility] Last Admin: 04/29/17 10:30 Dose: 1,000 mg Morphine Sulfate (Morphine Injection -) 2 mg IVPUSH Q3H PRN PRN Reason: PAIN Last Admin: 04/29/17 10:32 Dose: 2 mg Pantoprazole Sodium (Protonix -) 40 mg PO BID [facility] Last Admin: 04/29/17 10:31 Dose: 40 mg Potassium Chloride (K-Dur -) 40 meq PO DAILY [facility] Constitutional: Yes: Extubated, Awake and alert Eyes: Yes: PERRL HENT: Yes: Atraumatic, Normocephalic Neck: Yes: Trachea Midline Cardiovascular: Yes: Regular Rate and Rhythm, S1, S2 Respiratory: Yes: Right CT without air leak, scattered rhonchi Gastrointestinal: Yes: Normal Bowel Sounds, Soft Renal/: Yes: Collier Present Extremities: Yes: Cool Peripheral Pulses WNL: Yes Neurological: Yes: non-focal Labs: Laboratory Results - last 24 hr 04/28/17 04/29/17 04/29/17 10:33 05:45 05:45 WBC 7.6 RBC 2.86 L Hgb 8.2 L D Hct 24.2 L MCV 84.8 MCH 28.7 MCHC 33.9 RDW 15.2 D Plt Count 203 D MPV 8.4 Neutrophils % 87.1 H Lymphocytes % 7.5 L D Monocytes % 5.3 Eosinophils % 0.0 D Basophils % 0.1 Sodium 141 Potassium 2.8 L* Chloride 99 Carbon Dioxide 33 H Anion Gap 9 BUN 36 H D Creatinine 0.4 L D Creat Clearance w eGFR > 60 Random Glucose 126 H Calcium 7.3 L Phosphorus 1.7 L D Magnesium 1.5 L Total Bilirubin 0.4 D AST 11 L D ALT 16 Alkaline Phosphatase 33 L Total Protein 4.4 L Albumin 1.7 L Blood Type O POSITIVE Antibody Screen Negative Crossmatch See Detail 04/29/17 05:45 WBC RBC Hgb Hct MCV MCH MCHC RDW Plt Count MPV Neutrophils % Lymphocytes % Monocytes % Eosinophils % Basophils % Sodium Potassium Chloride Carbon Dioxide Anion Gap BUN Creatinine Creat Clearance w eGFR Random Glucose Calcium Phosphorus Cancelled Magnesium Total Bilirubin AST ALT Alkaline Phosphatase Total Protein Albumin Blood Type Antibody Screen Crossmatch Problem List - Problems (1) Respiratory failure Code(s): J96.90 - RESPIRATORY FAILURE, UNSP, UNSP W HYPOXIA OR HYPERCAPNIA Qualifiers: Chronicity: acute Respiratory failure complication: unspecified whether with hypoxia or hypercapnia Qualified Code(s): J96.00 - Acute respiratory failure, unspecified whether with hypoxia or hypercapnia (2) Acute renal failure Code(s): N17.9 - ACUTE KIDNEY FAILURE, UNSPECIFIED Qualifiers: Acute renal failure type: unspecified Qualified Code(s): N17.9 - Acute kidney failure, unspecified (3) Altered mental status Code(s): R41.82 - ALTERED MENTAL STATUS, UNSPECIFIED (4) Hypotension Code(s): I95.9 - HYPOTENSION, UNSPECIFIED Assessment/Plan O2 to maintain saturation Continue CT to suction for now Monitor off pressors BD TX ABX per ID Wean steroids in AM PO as tolerated Normal transfusion thresholds (transfuse Hgb <7) CT to water seal D/C Nando Owens CCTime 35" The care of this patient involved high complexity decision making to prevent further life threatening deterioration of the patient's condition and/or to evaluate & treat vital organ system(s) failure or risk of failure.
--- NOTE | 2017-04-29 13:23 | PN ---
Physical Exam: SUBJECTIVE: Patient seen and examined this morning while sitting comfortably in bed. Pt denies any overnight events including fever, chills, dyspnea, nausea or vomiting. Pt states her main complaint is back pain near her chest tube placement. Pt also admits to poor appetite and "feeling cold". Pt states she would increase her oral intake if given more Ensure drinks. Pt complaining of slight abdominal pain which she states she treats at home with Mylanta. Pt has no other acute issues at this time. OBJECTIVE: Vital Signs Period Temp Pulse Resp BP Sys/Sotelo Pulse Ox Last 24 Hr 97.5 F-99.8 F 41-94 15-26 107-135/74-92 94-96 GENERAL: The patient is awake, alert, not altered, in no acute distress. Cachectic and older than stated age. HEAD: Normal with no signs of trauma. EYES: sclera anicteric, conjunctiva clear. No ptosis. NECK: Trachea midline LUNGS: Course breath sounds L>R, diminished breath sounds on R side, no wheezes , no crackles, no accessory muscle use. Chest tube in place in R chest wall, no surrounding erythema, edema or drainage. HEART: Regular rate and rhythm, S1, S2 without murmur, rub or gallop. ABDOMEN: Soft, nontender, nondistended, hypoactive bowel sounds, no guarding, no rebound, no hepatosplenomegaly, no masses. : Collier catheter in place EXTREMITIES: 2+ radial pulses, 2+ tibialis posterior pulses, warm, well-perfused , no edema. NEUROLOGICAL: Cranial nerves II through X grossly intact. Normal speech, gait not observed. PSYCH: Normal mood, normal affect. SKIN: Warm, dry, normal turgor, no rashes or lesions noted Laboratory Results - last 24 hr 04/28/17 04/29/17 04/29/17 10:33 05:45 05:45 WBC 7.6 RBC 2.86 L Hgb 8.2 L D Hct 24.2 L MCV 84.8 MCH 28.7 MCHC 33.9 RDW 15.2 D Plt Count 203 D MPV 8.4 Neutrophils % 87.1 H Lymphocytes % 7.5 L D Monocytes % 5.3 Eosinophils % 0.0 D Basophils % 0.1 Sodium 141 Potassium 2.8 L* Chloride 99 Carbon Dioxide 33 H Anion Gap 9 BUN 36 H D Creatinine 0.4 L D Creat Clearance w eGFR > 60 Random Glucose 126 H Calcium 7.3 L Phosphorus 1.7 L D Magnesium 1.5 L Total Bilirubin 0.4 D AST 11 L D ALT 16 Alkaline Phosphatase 33 L Total Protein 4.4 L Albumin 1.7 L Blood Type O POSITIVE Antibody Screen Negative Crossmatch See Detail 04/29/17 05:45 WBC RBC Hgb Hct MCV MCH MCHC RDW Plt Count MPV Neutrophils % Lymphocytes % Monocytes % Eosinophils % Basophils % Sodium Potassium Chloride Carbon Dioxide Anion Gap BUN Creatinine Creat Clearance w eGFR Random Glucose Calcium Phosphorus Cancelled Magnesium Total Bilirubin AST ALT Alkaline Phosphatase Total Protein Albumin Blood Type Antibody Screen Crossmatch Active Medications Generic Name Dose Route Start Last Admin Trade Name Freq PRN Reason Stop Dose Admin Al Hydroxide/Mg Hydroxide 30 ml 04/29/17 09:10 Mylanta Suspension - PO Q6HPO PRN INDIGESTION Albuterol Sulfate 1 amp 04/26/17 11:52 Ventolin 0.083% Nebulizer Soln - NEB Q4H PRN SHORT OF BREATH/WHEEZING Arformoterol Tartrate 1 amp 04/26/17 12:00 04/29/17 10:04 Brovana (Restricted To Pulmonology/Resp) - NEB 1 amp BID RAISSA Administration Heparin Sodium (Porcine) 5,000 unit 04/25/17 22:00 04/29/17 10:30 Heparin - SQ 5,000 unit BID RAISSA Administration Sodium Chloride 1,000 mls @ 50 mls/hr 04/27/17 09:03 04/29/17 10:30 Normal Saline - IV Not Given ASDIR [facility]IS[facility] Ceftriaxone Sodium 100 mls @ 200 mls/hr 04/28/17 11:00 04/29/17 10:31 Rocephin 2gm Ivpb (Pre-Docked) IVPB 200 mls/hr DAILY [facility] Administration Potassium Chloride 100 mls @ 100 mls/hr 04/29/17 12:15 Potassium Chloride 20 Meq Premix Ivpb - IVPB 04/29/17 13:14 ONCE ONE Levetiracetam 1,000 mg 04/26/17 22:00 04/29/17 10:30 Keppra Injection - IVPB 1,000 mg BID RAISSA Administration Morphine Sulfate 2 mg 04/27/17 09:37 04/29/17 10:32 Morphine Injection - IVPUSH 2 mg Q3H PRN Administration PAIN Pantoprazole Sodium 40 mg 04/28/17 02:00 04/29/17 10:31 Protonix - PO 40 mg BID RAISSA Administration Potassium Chloride 40 meq 04/29/17 12:00 K-Dur - PO DAILY [facility] ASSESSMENT/PLAN: Petra Rider is a 52 y/o F pmhx scleroderma, CREST syndrome, COPD, hx MDR pneumonia and narcotic abuse admitted 04/25/17 for LOC and respiratory failure s/ p fall down stairs (per family) and seizure witnessed by EMS. Neuro: -Pt currently alert, no alteration in consciousness -PMH seizures; witnessed seizure with EMS -No seizure activity this admission -On Keppra 1gm BID with 1gm loading dose since 04/26/17 -Continue to monitor for seizures Resp: -Extubated on 04/26/17 -S/p R chest tube for pneumothorax -CXR this AM shows continued small R apical pneumothorax -Chest tube removed from suction this AM; -Will f/u CXR in afternoon, and if clear will clamp chest tube with f/u CXR in AM -Continue abx for PNA per ID -Continue Ventolin prn; Arformoterol tartrate sched BID -D/c'd Solu-cortef today -Cont to monitor O2 sats; currently on 4L NC Cardiovascular: -Hgb trending down from 04/26: 7.9>7.0>7.2 -s/p 2 pRBCs given 04/28 and 04/29 -s/p 2 PRBCs this admission -Hgb today 8.2 -F/u CBC today in afternoon -Episode of bradycardia with HR in 40s overnight -Continue to monitor -Off pressors since 04/27/17 GI: -acute anemia -Noncontrast CT abdomen ordered to r/o retroperitoneal bleed -probable ileus; limited study -Pt admits to slight abdominal discomfort relieved with Mylanta -Continue to monitor ID: -Pt slightly hypothermic; temp this AM 97.5F -Sputum + for pansensitive E. coli -Blood cultures show no growth to date -Previously on Ertapenem 1mg 04/26/17 - 04/28/17 -Continue Ceftriaxone IV 2gm day 4 of 7 -Appreciate ID recs FEN: -No fluids at this time -K+ 2.8 repleted this AM, f.u repeat potassium level -Normal diet; continue to offer Ensure drinks and encourage oral intake Prophylaxis: -Heparin SQ BID -Protonix 40 BID PO Dispo: -Will continue to monitor in ICU pending CXR showing resolved pneumothorax. Problem List - Problems (1) Altered mental status Code(s): R41.82 - ALTERED MENTAL STATUS, UNSPECIFIED (2) Hypotension Code(s): I95.9 - HYPOTENSION, UNSPECIFIED (3) Pneumothorax on right Code(s): J93.9 - PNEUMOTHORAX, UNSPECIFIED (4) Respiratory failure Code(s): J96.90 - RESPIRATORY FAILURE, UNSP, UNSP W HYPOXIA OR HYPERCAPNIA Qualifiers: Qualified Code(s): J96.00 - Acute respiratory failure, unspecified whether with hypoxia or hypercapnia (5) S/P chest tube placement Code(s): Z93.8 - OTHER ARTIFICIAL OPENING STATUS Visit type - Emergency Visit Emergency Visit: Yes ED Registration Date: 04/25/17 Care time: The patient presented to the Emergency Department on the above date and was hospitalized for further evaluation of their emergent condition. - New Patient This patient is new to me today: No - Critical Care Critical Care patient: Yes Total Critical Care Time (in minutes): 40 Critical Care Statement: The care of this patient involved high complexity decision making to prevent further life threatening deterioration of the patient 's condition and/or to evaluate & treat vital organ system(s) failure or risk of failure.
--- NOTE | 2017-04-29 16:33 | PN ---
Progress Note (short form) - Note Progress Note: Renal Follow up for PRASHANT/Hyponatremia Pt seen and examined in the ICU awake and alert reports pain at chest tube insertion site no sob, chest pain, abd pain, N/V/D Vital Signs Temperature 97.5 F L 04/29/17 06:00 Pulse Rate 72 04/29/17 12:00 Respiratory Rate 22 04/29/17 12:00 Blood Pressure 124/82 04/29/17 12:00 O2 Sat by Pulse Oximetry (%) 95 04/29/17 10:04 Intake & Output 04/26/17 04/27/17 04/28/17 04/29/17 23:59 23:59 23:59 23:59 Intake Total 5015 1509.6 987 1550 Output Total 2500 650 1250 2820 Balance 2515 859.6 -263 -1270 Weight 38 lb 92 lb 8 oz 89 lb 6.4 oz 91 lb Gen: NAD, awake and alert CVS: RRR, No M/R Lungs: CTA, no rales or wheeze Abd: soft NT/ND Ext: No edema, clubbing or cyanosis Neuro: AAOx3, no focal defects CBC, BMP 04/29/17 05:45 04/29/17 05:45 Current Medications Al Hydroxide/Mg Hydroxide (Mylanta Suspension -) 30 ml PO Q6HPO PRN PRN Reason: INDIGESTION Albuterol Sulfate (Ventolin 0.083% Nebulizer Soln -) 1 amp NEB Q4H PRN PRN Reason: SHORT OF BREATH/WHEEZING Arformoterol Tartrate (Brovana (Restricted To Pulmonology/Resp) -) 1 amp NEB BID [facility] Last Admin: 04/29/17 10:04 Dose: 1 amp Heparin Sodium (Porcine) (Heparin -) 5,000 unit SQ BID [facility] Last Admin: 04/29/17 10:30 Dose: 5,000 unit Sodium Chloride (Normal Saline -) 1,000 mls @ 50 mls/hr IV ASDIR [facility] Last Admin: 04/29/17 10:30 Dose: Not Given Ceftriaxone Sodium (Rocephin 2gm Ivpb (Pre-Docked)) 100 mls @ 200 mls/hr IVPB DAILY [facility] Last Admin: 04/29/17 10:31 Dose: 200 mls/hr Levetiracetam (Keppra Injection -) 1,000 mg IVPB BID [facility] Last Admin: 04/29/17 10:30 Dose: 1,000 mg Morphine Sulfate (Morphine Injection -) 2 mg IVPUSH Q3H PRN PRN Reason: PAIN Last Admin: 04/29/17 13:48 Dose: 2 mg Pantoprazole Sodium (Protonix -) 40 mg PO BID [facility] Last Admin: 04/29/17 10:31 Dose: 40 mg Potassium Chloride (K-Dur -) 40 meq PO DAILY [facility] Last Admin: 04/29/17 13:49 Dose: 40 meq A/P 52 year old woman with PMhx of Scleroderma, CREST Syndrome, COPD, CHF, Narcotic dependence, Hypothyrodism who presented with AMS and Seizure and found to have PRASHANT, Hyponatremia, Hypokalemia and Pseduohypocalcemia. #Acute Kidney Injury due to renal hypoperfusion in setting of PNA/Sepsis renal function now imporved s/p IVF #Hypovolemic Hyponatremia improved s/p isotonic IVF and now stable #Hypokalemia supplament to keep K ~4 keep Mg ~2 #Pseudohypocalcemia Corrected Ca is WNL #Seizure work up as per Neurology #Aspiration PNA Continue Ertapenem as per ID #Sarcoidosis/CREST Supportive Care #Anemia transfuse as per ICU protocol
[2017-04-29] MEDS ORDERED: MAG HYDROX/AL HYDROX/SIMETH 30 ML UNIT-DOSE CUP PO PRN (16:45)
[2017-04-29] MEDS ORDERED: MAGNESIUM SULF 50% (8.12 MEQ/2 ML-1 GM VIAL) ONE ×2 (16:51→18:26)
[2017-04-29] MEDS: KCL 10 MEQ IVPB 100 ML IVPB SCH ×2 (20:27→23:30)
[2017-04-29] MEDS ORDERED: POTASSIUM CHLORIDE TABS 20 MEQ TABLET.ER (FP) PO ONE (20:35)
[2017-04-29] MEDS ORDERED: KCL 10 MEQ IVPB 100 ML IVPB SCH (23:15)
[2017-04-30] MEDS: morphine CARPU-JECT 4 MG/1 ML DISP.SYRIN IVPUSH PRN ×4 (01:29→18:33)
[2017-04-30] MEDS ORDERED: POTASSIUM CHLORIDE 20 MEQ PREMIX IVPB 100 ML IVPB PRN (01:48)
[2017-04-30 06:27] LABS: MCH 28.6 pg (25.7-33.7); MCHC 33.5 g/dl (32.0-36.0); MEAN CELL VOLUME 85.2 fl (80-96); MEAN PLT VOLUME 8.3 fl (7.5-11.1); PLATELET COUNT 208 K/MM3 (134-434); RDW 15.4 % (11.6-15.6); WHITE BLOOD COUNT 6.8 K/mm3 (4.0-10.0)
[2017-04-30 06:52] LABS: ANION GAP 7 (8-16); CALCIUM 7.3 mg/dL (8.5-10.1); CO2 32 mmol/L (21-32); CREATININE 0.4 mg/dL (0.55-1.02); GLUCOSE,RANDOM 91 mg/dL (74-106)
--- NOTE | 2017-04-30 07:10 | PN ---
Physical Exam: SUBJECTIVE: Patient seen and examined at bedside. No acute events overnight. Chest tube in place with suction off. Potassium was repleted appropriately. She currently complains of mild diffuse abdominal pain. Denies chest pain, shortness of breath , fever, chills, nausea, vomiting, diarrhea. OBJECTIVE: Vital Signs Period Temp Pulse Resp BP Sys/Sotelo Pulse Ox Last 24 Hr 98.0 F-98.9 F 70-100 18-26 104-124/70-113 94-96 GENERAL: The patient is awake, alert, and fully oriented, in no acute distress. HEAD: Normal with no signs of trauma. EYES: PERRL, extraocular movements intact, sclera anicteric, conjunctiva clear. No ptosis. ENT: Ears normal, nares patent, oropharynx clear without exudates, moist mucous membranes. NECK: Trachea midline, full range of motion, supple. LUNGS: Breath sounds equal, clear to auscultation bilaterally, no wheezes, no crackles, no accessory muscle use. chest tube in place HEART: Regular rate and rhythm, S1, S2 without murmur, rub or gallop. ABDOMEN: Soft, mildly tender to palpation diffusely, nondistended, normoactive bowel sounds, no guarding, no rebound, no hepatosplenomegaly, no masses. EXTREMITIES: 2+ pulses, warm, well-perfused, no edema. NEUROLOGICAL: Cranial nerves II through XII grossly intact. Normal speech, gait not observed. PSYCH: Normal mood, normal affect. SKIN: Warm, dry, normal turgor, no rashes or lesions noted Laboratory Results - last 24 hr 04/29/17 04/29/17 04/29/17 05:45 05:45 17:00 WBC RBC Hgb Hct MCV MCH MCHC RDW Plt Count MPV Sodium 141 Potassium 2.8 L* 2.8 L* Chloride 99 Carbon Dioxide 33 H Anion Gap 9 BUN 36 H D Creatinine 0.4 L D Creat Clearance w eGFR > 60 Random Glucose 126 H Calcium 7.3 L Phosphorus 1.7 L D Cancelled Magnesium 1.5 L Total Bilirubin 0.4 D AST 11 L D ALT 16 Alkaline Phosphatase 33 L Total Protein 4.4 L Albumin 1.7 L 04/30/17 04/30/17 04/30/17 01:00 05:15 05:15 WBC 6.8 RBC 2.58 L Hgb 7.4 L Hct 22.0 L MCV 85.2 MCH 28.6 MCHC 33.5 RDW 15.4 Plt Count 208 MPV 8.3 Sodium 139 Potassium 3.4 L D 3.3 L Chloride 100 Carbon Dioxide 32 Anion Gap 7 L BUN 24 H D Creatinine 0.4 L Creat Clearance w eGFR Random Glucose 91 D Calcium 7.3 L Phosphorus Magnesium 2.0 D Total Bilirubin AST ALT Alkaline Phosphatase Total Protein Albumin Active Medications Generic Name Dose Route Start Last Admin Trade Name Freq PRN Reason Stop Dose Admin Al Hydroxide/Mg Hydroxide 30 ml 04/29/17 16:45 04/29/17 16:53 Mylanta Oral Suspension - PO 30 ml Q6HPO PRN Administration INDIGESTION Albuterol Sulfate 1 amp 04/26/17 11:52 Ventolin 0.083% Nebulizer Soln - NEB Q4H PRN SHORT OF BREATH/WHEEZING Arformoterol Tartrate 1 amp 04/26/17 12:00 04/29/17 21:51 Brovana (Restricted To Pulmonology/Resp) - NEB Not Given BID RAISSA Heparin Sodium (Porcine) 5,000 unit 04/25/17 22:00 04/29/17 21:59 Heparin - SQ 5,000 unit BID RAISSA Administration Sodium Chloride 1,000 mls @ 50 mls/hr 04/27/17 09:03 04/29/17 10:30 Normal Saline - IV Not Given ASDIR [facility] Ceftriaxone Sodium 100 mls @ 200 mls/hr 04/28/17 11:00 04/29/17 10:31 Rocephin 2gm Ivpb (Pre-Docked) IVPB 200 mls/hr DAILY [facility] Administration Levetiracetam 1,000 mg 04/26/17 22:00 04/29/17 21:59 Keppra Injection - IVPB 1,000 mg BID RAISSA Administration Morphine Sulfate 2 mg 04/27/17 09:37 04/30/17 05:06 Morphine Injection - IVPUSH 2 mg Q3H PRN Administration PAIN Pantoprazole Sodium 40 mg 04/28/17 02:00 04/29/17 21:50 Protonix - PO 40 mg BID RAISSA Administration Imaging: Echo (04/26): R ventricular systolic pressure elevated CXR (04/30): chest tube removed, some new atelectasis at the right base ASSESSMENT/PLAN: 52 year old female with past medical history of scleroderma, CREST syndrome, COPD, pneumonia, and narcotic abuse was admitted 5 days ago for loss of consciousness and respiratory failure - s/p fall down stairs (per family) and seizure witnessed by EMS. Patient is in the ICU s/p chest tube insertion for pneumothorax. Neuro: -patient has a past medical history of seizures with one witnessed by EMS prior to arrival to the hospital. No seizures post-admission -cont Keppra 1gm IV BID -watch for seizure-like activity Cardiovascular: -hemoglobin trended down from 8.2-->7.4 today (s/p 4 units pRBCs as of 04/28 - ) -continue to monitor hemoglobin for acute drops -am CBC -transfuse if Hgb < 7.0 -HR has been stable between 77 and 90 today -off pressors since 04/27 Pulmonary: -s/p right sided chest tube for pneumothorax, tube has been off suction since last night -clamped and D/C'd the chest tube this AM -CXR showed no pneumothorax following removal of chest tube -no need for f/u cxr in the afternoon -continue rocephin per ID for pneumonia -continue ventolin prn and brovana BID Gastrointestinal: -Anemia seems to have resolved with hgb 7.4, but hgb has been downtrending -follow hgb, transfuse if < 7 -pts abdominal discomfort is alleviated with Mylanta FEN: -No fluids at this time -K+ 3.3 today this AM, repleted with K riders -Normal diet; continue to offer Ensure drinks and encourage oral intake Prophylaxis: -Heparin SQ BID -Protonix 40 BID PO Dyspo: -stable to transfer to med-surg. Discussed with Dr. Gonzalez Visit type - Emergency Visit Emergency Visit: No - New Patient This patient is new to me today: No - Critical Care Critical Care patient: Yes Total Critical Care Time (in minutes): 25
[2017-04-30] MEDS ORDERED: morphine CARPU-JECT 4 MG/1 ML DISP.SYRIN IVPUSH PRN (07:47)
[2017-04-30] MEDS: KCL 10 MEQ IVPB 100 ML IVPB SCH ×3 (08:59→12:01)
[2017-04-30] MEDS: HEPARIN NA (PORCINE) 5,000 UNITS/ML 1ML VIAL SQ SCH ×2 (09:00→21:54)
[2017-04-30] MEDS: levETIRAcetam 500 MG/5 ML INJECTION VIAL IVPB SCH ×2 (09:00→21:53)
[2017-04-30] MEDS: PANTOPRAZOLE 40 MG TABLET (FP) PO SCH ×2 (09:01→21:54)
[2017-04-30] MEDS: CEFTRIAXONE 100 ML IVPB SCH (09:02)
[2017-04-30] MEDS ORDERED: morphine CARPU-JECT 4 MG/1 ML DISP.SYRIN IVPUSH ONE (09:20)
[2017-04-30 09:38] LABS: MAGNESIUM 2.1 mg/dL (1.8-2.4)
[2017-04-30] MEDS: ARFORMOTEROL TARTRATE 15 MCG/2 ML VIAL NEB SCH ×2 (10:00→22:15)
--- NOTE | 2017-04-30 10:10 | PN ---
Progress Note, Physician History of Present Illness: Pt w/o SOB, CP, palp, abd pain. Pt with diarrhea/ lose stool. Pt was seen and examined in ICU - Current Medication List Current Medications: Active Medications Al Hydroxide/Mg Hydroxide (Mylanta Oral Suspension -) 30 ml PO Q6HPO PRN PRN Reason: INDIGESTION Last Admin: 04/29/17 16:53 Dose: 30 ml Albuterol Sulfate (Ventolin 0.083% Nebulizer Soln -) 1 amp NEB Q4H PRN PRN Reason: SHORT OF BREATH/WHEEZING Arformoterol Tartrate (Brovana (Restricted To Pulmonology/Resp) -) 1 amp NEB BID [facility] Last Admin: 04/29/17 21:51 Dose: Not Given Heparin Sodium (Porcine) (Heparin -) 5,000 unit SQ BID [facility] Last Admin: 04/30/17 09:00 Dose: 5,000 unit Sodium Chloride (Normal Saline -) 1,000 mls @ 50 mls/hr IV ASDIR [facility] Last Admin: 04/29/17 10:30 Dose: Not Given Ceftriaxone Sodium (Rocephin 2gm Ivpb (Pre-Docked)) 100 mls @ 200 mls/hr IVPB DAILY [facility] Last Admin: 04/30/17 09:02 Dose: 200 mls/hr Potassium Chloride (Potassium Chloride 10 Meq Premix Ivpb -) 100 mls @ 100 mls/ hr IVPB Q60M [facility] Stop: 04/30/17 11:44 Last Admin: 04/30/17 10:04 Dose: 100 mls/hr Levetiracetam (Keppra Injection -) 1,000 mg IVPB BID [facility] Last Admin: 04/30/17 09:00 Dose: 1,000 mg Morphine Sulfate (Morphine Injection -) 2 mg IVPUSH Q3H PRN PRN Reason: PAIN Pantoprazole Sodium (Protonix -) 40 mg PO BID [facility] Last Admin: 04/30/17 09:01 Dose: 40 mg - Objective Vital Signs: Vital Signs Temperature 98.0 F 04/30/17 06:00 Pulse Rate 85 04/30/17 08:00 Respiratory Rate 23 04/30/17 08:00 Blood Pressure 146/97 04/30/17 08:00 O2 Sat by Pulse Oximetry (%) 96 04/29/17 20:50 Constitutional: Yes: No Distress, Calm Cardiovascular: Yes: Regular Rate and Rhythm, S1, S2 Respiratory: Yes: Regular, Rhonchi (scattered, bilat) Gastrointestinal: Yes: Normal Bowel Sounds, Soft. No: Palpable Mass, Tenderness Edema: No Neurological: Yes: Alert, Oriented (at baseline) Labs: CBC, BMP 04/30/17 05:15 04/30/17 05:15 INR, PTT INR 1.64 (0.82-1.09) H 04/26/17 05:20 Problem List - Problems (1) Altered mental status Code(s): R41.82 - ALTERED MENTAL STATUS, UNSPECIFIED (2) Acute renal failure Code(s): N17.9 - ACUTE KIDNEY FAILURE, UNSPECIFIED Qualifiers: Qualified Code(s): N17.9 - Acute kidney failure, unspecified (3) Acute respiratory failure Code(s): J96.00 - ACUTE RESPIRATORY FAILURE, UNSP W HYPOXIA OR HYPERCAPNIA Qualifiers: Qualified Code(s): J96.02 - Acute respiratory failure with hypercapnia (4) Pneumothorax on right Code(s): J93.9 - PNEUMOTHORAX, UNSPECIFIED (5) S/P chest tube placement Code(s): Z93.8 - OTHER ARTIFICIAL OPENING STATUS (6) Hypokalemia Code(s): E87.6 - HYPOKALEMIA (7) Seizure Code(s): R56.9 - UNSPECIFIED CONVULSIONS (8) Hypotension Code(s): I95.9 - HYPOTENSION, UNSPECIFIED (9) COPD (chronic obstructive pulmonary disease) Code(s): J44.9 - CHRONIC OBSTRUCTIVE PULMONARY DISEASE, UNSPECIFIED (10) CREST syndrome Code(s): M34.1 - CR(E)ST SYNDROME (11) Raynauds disease Code(s): I73.00 - RAYNAUD'S SYNDROME WITHOUT GANGRENE (12) Scleroderma Code(s): M34.9 - SYSTEMIC SCLEROSIS, UNSPECIFIED Assessment/Plan Pt with multiple medical conditions at baseline, now admitted with AMS , s/p fall, witnessed seizure, in acute respiratory failure s/p intubation, right side large pneumothorax (possible secondary to TLC placement as 1-st CXR w/o pneumothorax), hypotension, possible aspiration PNA. Pt was admitted to ICU. Pt was extubated, chest tube removed this AM. IVF off Pressors. IV abtx Correct electrolytes abnormalities. DVT and GI proxylasis AM labs. CCM, Neuro, ID consults appreciated; case was d/w Dr. Owens . Renal and CT Sx consult. Hyponatremia- replete K; f/u K and Mg AM level. Prognosis: reserved. Time spent for managing pt's care: over 40 min
--- NOTE | 2017-04-30 11:20 | PN ---
Progress Note (short form) - Note Progress Note: Renal Follow up for PRASHANT/Hyponatremia Pt seen and examined in the ICU awake and alert no acute complaints chest tube removed denies any sob, chest pain, abd pain, N/V/D making a good amount of urine as per pt Vital Signs Temperature 97.7 F 04/30/17 10:00 Pulse Rate 81 04/30/17 10:00 Respiratory Rate 23 04/30/17 10:00 Blood Pressure 119/75 04/30/17 10:00 O2 Sat by Pulse Oximetry (%) 96 04/29/17 20:50 Intake & Output 04/27/17 04/28/17 04/29/17 04/30/17 23:59 23:59 23:59 23:59 Intake Total 1509.6 987 3050 1300 Output Total 650 1250 3120 Balance 859.6 -263 -70 1300 Weight 92 lb 8 oz 89 lb 6.4 oz 91 lb 90 lb 7 oz Gen: NAD, awake and alert CVS: RRR, No M/R Lungs: CTA, no rales or wheeze Abd: soft NT/ND Ext: No edema, clubbing or cyanosis Neuro: AAOx3, no focal defects CBC, BMP 04/30/17 05:15 04/30/17 05:15 Laboratory Tests 04/26/17 04/30/17 04/30/17 05:20 05:15 05:15 MCV 85.2 Calcium 6.7 L* 7.3 L Phosphorus 3.7 Magnesium 1.9 D 2.0 Albumin 1.8 L D Current Medications Al Hydroxide/Mg Hydroxide (Mylanta Oral Suspension -) 30 ml PO Q6HPO PRN PRN Reason: INDIGESTION Last Admin: 04/29/17 16:53 Dose: 30 ml Albuterol Sulfate (Ventolin 0.083% Nebulizer Soln -) 1 amp NEB Q4H PRN PRN Reason: SHORT OF BREATH/WHEEZING Arformoterol Tartrate (Brovana (Restricted To Pulmonology/Resp) -) 1 amp NEB BID [facility] Last Admin: 04/29/17 21:51 Dose: Not Given Heparin Sodium (Porcine) (Heparin -) 5,000 unit SQ BID [facility] Last Admin: 04/30/17 09:00 Dose: 5,000 unit Sodium Chloride (Normal Saline -) 1,000 mls @ 50 mls/hr IV ASDIR [facility] Last Admin: 04/29/17 10:30 Dose: Not Given Ceftriaxone Sodium (Rocephin 2gm Ivpb (Pre-Docked)) 100 mls @ 200 mls/hr IVPB DAILY [facility] Last Admin: 04/30/17 09:02 Dose: 200 mls/hr Potassium Chloride (Potassium Chloride 10 Meq Premix Ivpb -) 100 mls @ 100 mls/ hr IVPB Q60M [facility] Stop: 04/30/17 11:44 Last Admin: 04/30/17 10:04 Dose: 100 mls/hr Levetiracetam (Keppra Injection -) 1,000 mg IVPB BID [facility] Last Admin: 04/30/17 09:00 Dose: 1,000 mg Morphine Sulfate (Morphine Injection -) 2 mg IVPUSH Q3H PRN PRN Reason: PAIN Pantoprazole Sodium (Protonix -) 40 mg PO BID [facility] Last Admin: 04/30/17 09:01 Dose: 40 mg A/P 52 year old woman with PMhx of Scleroderma, CREST Syndrome, COPD, CHF, Narcotic dependence, Hypothyrodism who presented with AMS and Seizure and found to have PRASHANT, Hyponatremia, Hypokalemia and Pseduohypocalcemia. #Acute Kidney Injury Renal function improved and stable can d/c IVF and monitor BUN/Cr #Hypovolemic Hyponatremia improved s/p isotonic IVF and now stable Trend off IVF #Hypokalemia supplement to keep K ~4 keep Mg ~2 #Seizures on presentation on Keppra no further seizure neurology follow up Thank you Srinivasan Tijerina DO
--- NOTE | 2017-04-30 11:29 | PN ---
Teaching Attending Note Name of Resident: Aubrey Grady ATTENDING PHYSICIAN STATEMENT I saw and evaluated the patient. I reviewed the resident's note and discussed the case with the resident. I agree with the resident's findings and plan as documented. SUBJECTIVE: Patient seen and examined in the ICU. Remains extubated. Awake and alert. Continued discomfort at the Right CT site. Remains off pressors. No air leak on CT noted. CXR: Right CT intact / No PTX appreciated Intake & Output 04/27/17 04/28/17 04/29/17 04/30/17 23:59 23:59 23:59 23:59 Intake Total 1509.6 987 3050 1300 Output Total 650 1250 3120 Balance 859.6 -263 -70 1300 Weight 92 lb 8 oz 89 lb 6.4 oz 91 lb 90 lb 7 oz Last Vital Signs Temp Pulse Resp BP Pulse Ox 97.7 F 81 23 119/75 96 04/30/17 10:00 04/30/17 10:00 04/30/17 10:00 04/30/17 10:00 04/29/17 20:50 Active Medications Al Hydroxide/Mg Hydroxide (Mylanta Oral Suspension -) 30 ml PO Q6HPO PRN PRN Reason: INDIGESTION Last Admin: 04/29/17 16:53 Dose: 30 ml Albuterol Sulfate (Ventolin 0.083% Nebulizer Soln -) 1 amp NEB Q4H PRN PRN Reason: SHORT OF BREATH/WHEEZING Arformoterol Tartrate (Brovana (Restricted To Pulmonology/Resp) -) 1 amp NEB BID [facility] Last Admin: 04/29/17 21:51 Dose: Not Given Heparin Sodium (Porcine) (Heparin -) 5,000 unit SQ BID [facility] Last Admin: 04/30/17 09:00 Dose: 5,000 unit Sodium Chloride (Normal Saline -) 1,000 mls @ 50 mls/hr IV ASDIR [facility] Last Admin: 04/29/17 10:30 Dose: Not Given Ceftriaxone Sodium (Rocephin 2gm Ivpb (Pre-Docked)) 100 mls @ 200 mls/hr IVPB DAILY [facility] Last Admin: 04/30/17 09:02 Dose: 200 mls/hr Potassium Chloride (Potassium Chloride 10 Meq Premix Ivpb -) 100 mls @ 100 mls/ hr IVPB Q60M [facility] Stop: 04/30/17 11:44 Last Admin: 04/30/17 10:04 Dose: 100 mls/hr Levetiracetam (Keppra Injection -) 1,000 mg IVPB BID [facility] Last Admin: 04/30/17 09:00 Dose: 1,000 mg Morphine Sulfate (Morphine Injection -) 2 mg IVPUSH Q3H PRN PRN Reason: PAIN Pantoprazole Sodium (Protonix -) 40 mg PO BID [facility] Last Admin: 04/30/17 09:01 Dose: 40 mg Constitutional: Yes: Extubated, Awake and alert Eyes: Yes: PERRL HENT: Yes: Atraumatic, Normocephalic Neck: Yes: Trachea Midline Cardiovascular: Yes: Regular Rate and Rhythm, S1, S2 Respiratory: Yes: Right CT without air leak, scattered rhonchi Gastrointestinal: Yes: Normal Bowel Sounds, Soft Renal/: Yes: Collier Present Extremities: Yes: Cool Peripheral Pulses WNL: Yes Neurological: Yes: non-focal Labs: Laboratory Results - last 24 hr 04/29/17 04/30/17 04/30/17 17:00 01:00 05:15 WBC 6.8 RBC 2.58 L Hgb 7.4 L Hct 22.0 L MCV 85.2 MCH 28.6 MCHC 33.5 RDW 15.4 Plt Count 208 MPV 8.3 Sodium Potassium 2.8 L* 3.4 L D Chloride Carbon Dioxide Anion Gap BUN Creatinine Random Glucose Calcium Magnesium 2.1 D 04/30/17 05:15 WBC RBC Hgb Hct MCV MCH MCHC RDW Plt Count MPV Sodium 139 Potassium 3.3 L Chloride 100 Carbon Dioxide 32 Anion Gap 7 L BUN 24 H D Creatinine 0.4 L Random Glucose 91 D Calcium 7.3 L Magnesium 2.0 Problem List - Problems (1) Respiratory failure Code(s): J96.90 - RESPIRATORY FAILURE, UNSP, UNSP W HYPOXIA OR HYPERCAPNIA Qualifiers: Chronicity: acute Respiratory failure complication: unspecified whether with hypoxia or hypercapnia Qualified Code(s): J96.00 - Acute respiratory failure, unspecified whether with hypoxia or hypercapnia (2) Acute renal failure Code(s): N17.9 - ACUTE KIDNEY FAILURE, UNSPECIFIED Qualifiers: Acute renal failure type: unspecified Qualified Code(s): N17.9 - Acute kidney failure, unspecified (3) Altered mental status Code(s): R41.82 - ALTERED MENTAL STATUS, UNSPECIFIED (4) Hypotension Code(s): I95.9 - HYPOTENSION, UNSPECIFIED Assessment/Plan O2 to maintain saturation Will remove CT Monitor off pressors BD TX ABX per ID D/C steroids PO as tolerated Normal transfusion thresholds (transfuse Hgb <7) Incentive Spirometry Dr Owens CCTime 35" The care of this patient involved high complexity decision making to prevent further life threatening deterioration of the patient's condition and/or to evaluate & treat vital organ system(s) failure or risk of failure.
[2017-04-30] MEDS: SODIUM CHLORIDE 1,000 ML IV SCH ×2 (12:00→17:10)
--- NOTE | 2017-04-30 18:46 | PN ---
Progress Note (short form) - Note Progress Note: Consult f/u: Tube removed. XRAY good. There was no air-leak. Does not need serial CXR for past PTX.
[2017-04-30] MEDS: ALBUTEROL SO4 0.083% IH SOL 2.5 MG/3 ML VIAL.NEB. NEB PRN (18:56)
[2017-05-01] MEDS: morphine CARPU-JECT 4 MG/1 ML DISP.SYRIN IVPUSH PRN ×4 (06:45→23:01)
[2017-05-01 07:27] LABS: MCH 29.1 pg (25.7-33.7); MCHC 34.2 g/dl (32.0-36.0); MEAN PLT VOLUME 7.8 fl (7.5-11.1); PLATELET COUNT 199 K/MM3 (134-434); RDW 16.1 % (11.6-15.6); WHITE BLOOD COUNT 5.6 K/mm3 (4.0-10.0)
[2017-05-01 07:39] LABS: INR 1.47 (0.82-1.09); PROTHROMBIN TIME (PATIENT) 16.3 SEC (9.98-11.88)
[2017-05-01 08:07] LABS: ALBUMIN 1.7 g/dl (3.4-5.0); ANION GAP 7 (8-16); CALCIUM 7.6 mg/dL (8.5-10.1); CO2 32 mmol/L (21-32); CREATININE 0.4 mg/dL (0.55-1.02); GLUCOSE,RANDOM 78 mg/dL (74-106); MAGNESIUM 1.7 mg/dL (1.8-2.4); SGOT/AST 10 U/L (15-37); SGPT/ALT 15 U/L (12-78)
[2017-05-01 08:13] LABS: ALK PHOS 37 U/L (45-117); TOT PROT 4.5 g/dl (6.4-8.2)
[2017-05-01] MEDS ORDERED: DEXTROSE 5%-WATER 100 ML IVPB ONE (09:08)
[2017-05-01] MEDS: levETIRAcetam 500 MG/5 ML INJECTION VIAL IVPB SCH ×2 (10:19→23:37)
[2017-05-01] MEDS: CEFTRIAXONE 2 GM in DEXTROSE 5%-WATER 100 ML IVPB SCH (10:20)
[2017-05-01] MEDS: HEPARIN NA (PORCINE) 5,000 UNITS/ML 1ML VIAL SQ SCH ×2 (10:20→22:43)
[2017-05-01] MEDS: PANTOPRAZOLE 40 MG TABLET (FP) PO SCH ×2 (10:20→22:43)
[2017-05-01] MEDS: ARFORMOTEROL TARTRATE 15 MCG/2 ML VIAL NEB SCH ×2 (10:27→22:25)
[2017-05-01] MEDS: MAGNESIUM SULF 50% (8.12 MEQ/2 ML-1 GM VIAL) IVPB SCH ×2 (13:09→13:52)
--- NOTE | 2017-05-01 13:12 | PN ---
Progress Note, Physician Chief Complaint: in bed nad afebrile, no new c/o; wants to go home on prn morphine (ordered per ICU team) for back pain drop in Hg but no obvious bleed; will transfuse; pt agreed - Current Medication List Current Medications: Active Medications Al Hydroxide/Mg Hydroxide (Mylanta Oral Suspension -) 30 ml PO Q6HPO PRN PRN Reason: INDIGESTION Albuterol Sulfate (Ventolin 0.083% Nebulizer Soln -) 1 amp NEB Q4H PRN PRN Reason: SHORT OF BREATH/WHEEZING Last Admin: 04/30/17 18:56 Dose: 1 amp Arformoterol Tartrate (Brovana (Restricted To Pulmonology/Resp) -) 1 amp NEB BID [facility] Last Admin: 05/01/17 10:27 Dose: 1 amp Heparin Sodium (Porcine) (Heparin -) 5,000 unit SQ BID [facility] Last Admin: 05/01/17 10:20 Dose: 5,000 unit Ceftriaxone Sodium 2 gm/ (Dextrose) 100 mls @ 200 mls/hr IVPB DAILY [facility] Last Admin: 05/01/17 10:20 Dose: 200 mls/hr Sodium Chloride (Normal Saline -) 1,000 mls @ 50 mls/hr IV ASDIR [facility] Last Admin: 04/30/17 17:10 Dose: 50 mls/hr Levetiracetam (Keppra Injection -) 1,000 mg IVPB BID [facility] Last Admin: 05/01/17 10:19 Dose: 1,000 mg Magnesium Sulfate (Magnesium Sulfate) 2 gm IVPB Q1H [facility] Stop: 05/01/17 14:01 Last Admin: 05/01/17 13:09 Dose: 2 gm Morphine Sulfate (Morphine Injection -) 2 mg IVPUSH Q3H PRN PRN Reason: PAIN Last Admin: 05/01/17 11:35 Dose: 2 mg Pantoprazole Sodium (Protonix -) 40 mg PO BID [facility] Last Admin: 05/01/17 10:20 Dose: 40 mg - Objective Vital Signs: Vital Signs Temperature 97.5 F L 05/01/17 10:00 Pulse Rate 102 H 05/01/17 10:26 Respiratory Rate 18 05/01/17 10:00 Blood Pressure 95/60 05/01/17 10:00 O2 Sat by Pulse Oximetry (%) 99 05/01/17 10:26 Constitutional: Yes: No Distress, Calm Eyes: Yes: Conjunctiva Clear HENT: Yes: Atraumatic Neck: Yes: Supple Cardiovascular: Yes: Regular Rate and Rhythm Respiratory: Yes: Diminished Gastrointestinal: Yes: Soft. No: Distention, Tenderness Musculoskeletal: No: Joint Stiffness, Joint Swelling Extremities: No: Cold, Cool Edema: No Peripheral Pulses WNL: Yes Integumentary: No: Rash, Venous Stasis Changes Neurological: Yes: Alert ...Motor Strength: WNL Psychiatric: Yes: Alert. No: Agitated, Suicidal Ideation Labs: CBC, BMP 05/01/17 06:00 05/01/17 06:00 INR, PTT INR 1.47 (0.82-1.09) H 05/01/17 06:00 Assessment/Plan This is a 52 year old woman with PMhx of Scleroderma, CREST Syndrome, COPD, CHF , Narcotic dependence, Hypothyrodism who presented with AMS and Seizure and found to have PRASHANT, Hyponatremia, Hypokalemia and Pseudohypocalcemia. Pt was found unresponsive at home and had a witnessed seizure in the ED. Pt was intubated and required a chest tube placement for iatrogenic pneumothorax. pulmonary and CT Sx f/u chest CT DCd per pulm and CT Sx anemia Hg 6.9: transfuse prn neurology f/u; IV keppra for seizures pfx s/p ARF better with IVF f/u labs, cultures prognosis guarded d/w pt and staff
--- NOTE | 2017-05-01 14:59 | PN ---
Progress Note (short form) - Note Progress Note: Renal Follow up for PRASHANT/Hyponatremia Pt seen and examined at the bedside + diarrhea no sob, chest pain, abd pain Vital Signs Temperature 99.0 F 05/01/17 14:24 Pulse Rate 106 H 05/01/17 14:24 Respiratory Rate 18 05/01/17 14:24 Blood Pressure 102/65 05/01/17 14:24 O2 Sat by Pulse Oximetry (%) 99 05/01/17 10:26 Intake & Output 04/28/17 04/29/17 04/30/17 05/01/17 23:59 23:59 23:59 23:59 Intake Total 987 3050 1450 950 Output Total 1250 3120 Balance -263 -70 1450 950 Weight 89 lb 6.4 oz 91 lb 90 lb 7 oz 96 lb 3 oz Gen: NAD, awake and alert CVS: RRR, No M/R Lungs: CTA, no rales or wheeze Abd: soft NT/ND Ext: No edema, clubbing or cyanosis Neuro: AAOx3, no focal defects CBC, BMP 05/01/17 06:00 05/01/17 06:00 Laboratory Tests 05/01/17 06:00 Calcium 7.6 L Magnesium 1.7 L Albumin 1.7 L Current Medications Al Hydroxide/Mg Hydroxide (Mylanta Oral Suspension -) 30 ml PO Q6HPO PRN PRN Reason: INDIGESTION Albuterol Sulfate (Ventolin 0.083% Nebulizer Soln -) 1 amp NEB Q4H PRN PRN Reason: SHORT OF BREATH/WHEEZING Last Admin: 04/30/17 18:56 Dose: 1 amp Arformoterol Tartrate (Brovana (Restricted To Pulmonology/Resp) -) 1 amp NEB BID [facility] Last Admin: 05/01/17 10:27 Dose: 1 amp Heparin Sodium (Porcine) (Heparin -) 5,000 unit SQ BID [facility] Last Admin: 05/01/17 10:20 Dose: 5,000 unit Ceftriaxone Sodium 2 gm/ (Dextrose) 100 mls @ 200 mls/hr IVPB DAILY [facility] Last Admin: 05/01/17 10:20 Dose: 200 mls/hr Sodium Chloride (Normal Saline -) 1,000 mls @ 50 mls/hr IV ASDIR [facility] Last Admin: 04/30/17 17:10 Dose: 50 mls/hr Levetiracetam (Keppra Injection -) 1,000 mg IVPB BID [facility] Last Admin: 05/01/17 10:19 Dose: 1,000 mg Morphine Sulfate (Morphine Injection -) 2 mg IVPUSH Q3H PRN PRN Reason: PAIN Last Admin: 05/01/17 11:35 Dose: 2 mg Pantoprazole Sodium (Protonix -) 40 mg PO BID [facility] Last Admin: 05/01/17 10:20 Dose: 40 mg Potassium Chloride (K-Dur -) 40 meq PO DAILY [facility] A/P 52 year old woman with PMhx of Scleroderma, CREST Syndrome, COPD, CHF, Narcotic dependence, Hypothyrodism who presented with AMS and Seizure and found to have PRASHANT, Hyponatremia, Hypokalemia and Pseduohypocalcemia. #Acute Kidney Injury Renal function improved and stable #Hypovolemic Hyponatremia improved s/p isotonic IVF and now stable Trend off IVF #Hypokalemia/Hypomagnesemia supplement to keep K ~4 give Mg sulfate 2g IV Trend electrolytes daily #Seizures on presentation on Keppra no further seizure neurology follow up Thank you Srinivasan Tijerina DO
[2017-05-01] MEDS: POTASSIUM CHLORIDE TABS 20 MEQ TABLET.ER (FP) PO SCH (15:25)
[2017-05-01] MEDS ORDERED: ACETAMINOPHEN 325 MG TABLET (FP) PO PRN (16:42)
[2017-05-01] MEDS ORDERED: ACETAMINOPHEN 325 MG TABLET (FP) PO ONE (16:45)
--- NOTE | 2017-05-01 16:45 | EKG ---
Test Reason : Blood Pressure : / mmHG Vent. Rate : 094 BPM Atrial Rate : 094 BPM P-R Int : 148 ms QRS Dur : 074 ms QT Int : 384 ms P-R-T Axes : 071 054 052 degrees QTc Int : 480 ms NORMAL SINUS RHYTHM PROLONGED QT ABNORMAL ECG WHEN COMPARED WITH ECG OF 25-APR-2017 11:17, NO SIGNIFICANT CHANGE WAS FOUND Confirmed by SADIE AGUILAR MD ([id number]) on 05/01/2017 4:44:50 PM Referred By: RESIDENT [facility]ING Confirmed By:SADIE AGUILAR MD
[2017-05-01] MEDS: SODIUM CHLORIDE 1,000 ML IV SCH (17:50)
[2017-05-02] MEDS: morphine CARPU-JECT 4 MG/1 ML DISP.SYRIN IVPUSH PRN ×5 (06:37→21:03)
[2017-05-02 08:05] LABS: BASOPHIL 0.1 % (0-2.0); EOSINOPHIL 9.6 % (0-4.5); MCH 29.2 pg (25.7-33.7); MCHC 34.6 g/dl (32.0-36.0); MEAN CELL VOLUME 84.4 fl (80-96); MEAN PLT VOLUME 8.1 fl (7.5-11.1); NEUTROPHILS 59.4 % (42.8-82.8); PLATELET COUNT 247 K/MM3 (134-434); RDW 15.8 % (11.6-15.6); WHITE BLOOD COUNT 4.8 K/mm3 (4.0-10.0)
[2017-05-02 08:07] LABS: ALBUMIN 1.9 g/dl (3.4-5.0); ALK PHOS 41 U/L (45-117); ANION GAP 8 (8-16); BILIRUBIN,TOTAL 0.3 mg/dL (0.2-1.0); CALCIUM 7.2 mg/dL (8.5-10.1); CO2 27 mmol/L (21-32); CREATININE 0.4 mg/dL (0.55-1.02); GLUCOSE,RANDOM 83 mg/dL (74-106); MAGNESIUM 1.7 mg/dL (1.8-2.4); SGOT/AST 10 U/L (15-37); SGPT/ALT 18 U/L (12-78)
[2017-05-02 08:53] LABS: PHOSPHOROUS 0.9 mg/dL (2.5-4.9)
[2017-05-02] MEDS ORDERED: DEXTROSE 5%-WATER 100 ML IVPB ONE (09:11)
[2017-05-02] MEDS: CEFTRIAXONE 2 GM in DEXTROSE 5%-WATER 100 ML IVPB SCH (09:17)
[2017-05-02] MEDS: POTASSIUM CHLORIDE TABS 20 MEQ TABLET.ER (FP) PO SCH (09:18)
[2017-05-02] MEDS: HEPARIN NA (PORCINE) 5,000 UNITS/ML 1ML VIAL SQ SCH ×2 (09:18→21:02)
[2017-05-02] MEDS: levETIRAcetam 500 MG/5 ML INJECTION VIAL IVPB SCH ×2 (09:18→21:02)
[2017-05-02] MEDS: PANTOPRAZOLE 40 MG TABLET (FP) PO SCH ×2 (09:19→21:02)
[2017-05-02] MEDS ORDERED: MAGNESIUM SULF 50% (8.12 MEQ/2 ML-1 GM VIAL) IVPB ONE ×2 (09:52→11:00)
[2017-05-02] MEDS ORDERED: POTASSIUM CHLORIDE TABS 20 MEQ TABLET.ER (FP) PO SCH (10:00)
[2017-05-02] MEDS ORDERED: POTASSIUM PHOSPHATE 30 MM in DEXTROSE 5%-WATER - 250 ML IVPB ONE (10:17)
--- NOTE | 2017-05-02 10:20 | PN ---
Progress Note, Physician History of Present Illness: Pt w/o SOB, CP, palp, abd pain. Pt with diarrhea/ lose stool- improved. - Current Medication List Current Medications: Active Medications Acetaminophen (Tylenol -) 650 mg PO Q6H PRN PRN Reason: FEVER Al Hydroxide/Mg Hydroxide (Mylanta Oral Suspension -) 30 ml PO Q6HPO PRN PRN Reason: INDIGESTION Albuterol Sulfate (Ventolin 0.083% Nebulizer Soln -) 1 amp NEB Q4H PRN PRN Reason: SHORT OF BREATH/WHEEZING Last Admin: 04/30/17 18:56 Dose: 1 amp Arformoterol Tartrate (Brovana (Restricted To Pulmonology/Resp) -) 1 amp NEB BID [facility] Last Admin: 05/01/17 22:25 Dose: Not Given Heparin Sodium (Porcine) (Heparin -) 5,000 unit SQ BID [facility] Last Admin: 05/02/17 09:18 Dose: 5,000 unit Ceftriaxone Sodium 2 gm/ (Dextrose) 100 mls @ 200 mls/hr IVPB DAILY [facility] Last Admin: 05/02/17 09:17 Dose: 200 mls/hr Sodium Chloride (Normal Saline -) 1,000 mls @ 50 mls/hr IV ASDIR [facility] Last Admin: 05/01/17 17:50 Dose: 50 mls/hr Potassium Phosphate 30 mm/ (Dextrose) 260 mls @ 65 mls/hr IVPB ONCE ONE PRN Reason: 30 MM/4 HR Stop: 05/02/17 14:16 Levetiracetam (Keppra Injection -) 1,000 mg IVPB BID [facility] Last Admin: 05/02/17 09:18 Dose: 1,000 mg Magnesium Sulfate (Magnesium Sulfate) 1 gm IVPB ONCE ONE Stop: 05/02/17 09:53 Morphine Sulfate (Morphine Injection -) 2 mg IVPUSH Q3H PRN PRN Reason: PAIN Last Admin: 05/02/17 06:37 Dose: 2 mg Pantoprazole Sodium (Protonix -) 40 mg PO BID [facility] Last Admin: 05/02/17 09:19 Dose: 40 mg Potassium Chloride (K-Dur -) 40 meq PO BID [facility] - Objective Vital Signs: Vital Signs Temperature 98.7 F 05/02/17 08:27 Pulse Rate 91 H 05/02/17 08:27 Respiratory Rate 20 05/02/17 08:27 Blood Pressure 124/68 05/02/17 08:27 O2 Sat by Pulse Oximetry (%) 96 05/02/17 08:26 Constitutional: Yes: No Distress, Calm Cardiovascular: Yes: Regular Rate and Rhythm, S1, S2 Respiratory: Yes: Regular, Rhonchi (scattered, minimal) Gastrointestinal: Yes: Normal Bowel Sounds, Soft. No: Tenderness Edema: No Neurological: Yes: Alert, Oriented Labs: CBC, BMP 05/02/17 06:00 05/02/17 06:00 INR, PTT INR 1.47 (0.82-1.09) H 05/01/17 06:00 Problem List - Problems (1) Altered mental status Code(s): R41.82 - ALTERED MENTAL STATUS, UNSPECIFIED (2) Acute renal failure Code(s): N17.9 - ACUTE KIDNEY FAILURE, UNSPECIFIED Qualifiers: Qualified Code(s): N17.9 - Acute kidney failure, unspecified (3) Acute respiratory failure Code(s): J96.00 - ACUTE RESPIRATORY FAILURE, UNSP W HYPOXIA OR HYPERCAPNIA Qualifiers: Qualified Code(s): J96.02 - Acute respiratory failure with hypercapnia (4) Pneumothorax on right Code(s): J93.9 - PNEUMOTHORAX, UNSPECIFIED (5) S/P chest tube placement Code(s): Z93.8 - OTHER ARTIFICIAL OPENING STATUS (6) Hypokalemia Code(s): E87.6 - HYPOKALEMIA (7) Seizure Code(s): R56.9 - UNSPECIFIED CONVULSIONS (8) Hypotension Code(s): I95.9 - HYPOTENSION, UNSPECIFIED (9) COPD (chronic obstructive pulmonary disease) Code(s): J44.9 - CHRONIC OBSTRUCTIVE PULMONARY DISEASE, UNSPECIFIED (10) CREST syndrome Code(s): M34.1 - CR(E)ST SYNDROME (11) Raynauds disease Code(s): I73.00 - RAYNAUD'S SYNDROME WITHOUT GANGRENE (12) Scleroderma Code(s): M34.9 - SYSTEMIC SCLEROSIS, UNSPECIFIED Assessment/Plan Pt with multiple comorbidities at baseline, now admitted with AMS , s/p fall, withnessed seisure, in acute respiratory failure s/p intubation, right side large pneumothorax (possible secondary to TLC placement as 1-st CXR w/o pneumothorax), hypotension, possible aspiration PNA. Hypomagnesemia Hypophosphatemia Opiates dependance. Pt was admitted to ICU, now transferred to medical floor. CCM/ Pulmonary, Neuro, Renal, ID consult appreciated. IV abtx Correct electrolytes abnormalities. DVT and GI proxylasis OOBTC AM labs. Prognosis: reserved.
--- NOTE | 2017-05-02 10:21 | PN ---
Progress Note (short form) - Note Progress Note: PULMONARY Some shortness of breath without cough or wheezing. No fevers or chills. Last Vital Signs Temp Pulse Resp BP Pulse Ox 98.7 F 91 H 20 124/68 96 05/02/17 08:27 05/02/17 08:27 05/02/17 08:27 05/02/17 08:27 05/02/17 08:26 Gen: mildly tachypneic at rest Heart: RRR Lung: distant breath sounds Abd: soft, nontender Ext: no edema CBC, BMP 05/02/17 06:00 05/02/17 06:00 Active Medications Acetaminophen (Tylenol -) 650 mg PO Q6H PRN PRN Reason: FEVER Al Hydroxide/Mg Hydroxide (Mylanta Oral Suspension -) 30 ml PO Q6HPO PRN PRN Reason: INDIGESTION Albuterol Sulfate (Ventolin 0.083% Nebulizer Soln -) 1 amp NEB Q4H PRN PRN Reason: SHORT OF BREATH/WHEEZING Last Admin: 04/30/17 18:56 Dose: 1 amp Arformoterol Tartrate (Brovana (Restricted To Pulmonology/Resp) -) 1 amp NEB BID [facility] Last Admin: 05/01/17 22:25 Dose: Not Given Heparin Sodium (Porcine) (Heparin -) 5,000 unit SQ BID [facility] Last Admin: 05/02/17 09:18 Dose: 5,000 unit Ceftriaxone Sodium 2 gm/ (Dextrose) 100 mls @ 200 mls/hr IVPB DAILY [facility] Last Admin: 05/02/17 09:17 Dose: 200 mls/hr Sodium Chloride (Normal Saline -) 1,000 mls @ 50 mls/hr IV ASDIR [facility] Last Admin: 05/01/17 17:50 Dose: 50 mls/hr Levetiracetam (Keppra Injection -) 1,000 mg IVPB BID [facility] Last Admin: 05/02/17 09:18 Dose: 1,000 mg Magnesium Sulfate (Magnesium Sulfate) 1 gm IVPB ONCE ONE Stop: 05/02/17 09:53 Morphine Sulfate (Morphine Injection -) 2 mg IVPUSH Q3H PRN PRN Reason: PAIN Last Admin: 05/02/17 06:37 Dose: 2 mg Pantoprazole Sodium (Protonix -) 40 mg PO BID [facility] Last Admin: 05/02/17 09:19 Dose: 40 mg Potassium Chloride (K-Dur -) 40 meq PO BID [facility] A/P Acute on Chronic Hypercapneic Respiratory Failure improving Seizure Episode Opiate Dependent Scleroderma/CREST syndrome Pneumothorax s/p chest tube placement/removal Pneumonia Anemia - complete antibiotics - antiepileptics - aspiration precautions - inhaled bronchodilators - O2 to keep SpO2 >88% - establish peripheral access and d/c central line - DVT prophylaxis
[2017-05-02] MEDS: ARFORMOTEROL TARTRATE 15 MCG/2 ML VIAL NEB SCH ×2 (10:35→22:14)
[2017-05-02] MEDS ORDERED: POTASSIUM PHOSPHATE 30 MM in DEXTROSE 5%-WATER - 500 ML IVPB ONE (11:00)
[2017-05-02] MEDS: MAG HYDROX/AL HYDROX/SIMETH 30 ML UNIT-DOSE CUP PO PRN (12:52)
[2017-05-02] MEDS: NAPH,MB-DB/K PH,MBDB POWDER PACKET PO SCH ×2 (13:09→21:02)
--- NOTE | 2017-05-02 13:44 | PN ---
Progress Note (short form) - Note Progress Note: Renal Follow up for PRASHANT/Hyponatremia Pt seen and examined at the bedside no acute complaints denies any muscle weakness, sob, chest pain Vital Signs Temperature 98.7 F 05/02/17 08:27 Pulse Rate 100 H 05/02/17 10:30 Respiratory Rate 20 05/02/17 08:27 Blood Pressure 124/68 05/02/17 08:27 O2 Sat by Pulse Oximetry (%) 97 05/02/17 10:30 Intake & Output 04/29/17 04/30/17 05/01/17 05/02/17 23:59 23:59 23:59 23:59 Intake Total 3050 1450 1800 600 Output Total 3120 Balance -70 1450 1800 600 Weight 91 lb 90 lb 7 oz 96 lb 3 oz 95 lb 8 oz Gen: NAD, awake and alert CVS: RRR, No M/R Lungs: CTA, no rales or wheeze Abd: soft NT/ND Ext: No edema, clubbing or cyanosis Neuro: AAOx3, no focal defects CBC, BMP 05/02/17 06:00 05/02/17 06:00 Laboratory Tests 05/02/17 06:00 Calcium 7.2 L Phosphorus 0.9 L* Magnesium 1.7 L Albumin 1.9 L Current Medications Acetaminophen (Tylenol -) 650 mg PO Q6H PRN PRN Reason: FEVER Al Hydroxide/Mg Hydroxide (Mylanta Oral Suspension -) 30 ml PO Q6HPO PRN PRN Reason: INDIGESTION Last Admin: 05/02/17 12:52 Dose: 30 ml Albuterol Sulfate (Ventolin 0.083% Nebulizer Soln -) 1 amp NEB Q4H PRN PRN Reason: SHORT OF BREATH/WHEEZING Last Admin: 04/30/17 18:56 Dose: 1 amp Arformoterol Tartrate (Brovana (Restricted To Pulmonology/Resp) -) 1 amp NEB BID [facility] Last Admin: 05/02/17 10:35 Dose: 1 amp Heparin Sodium (Porcine) (Heparin -) 5,000 unit SQ BID [facility] Last Admin: 05/02/17 09:18 Dose: 5,000 unit Ceftriaxone Sodium 2 gm/ (Dextrose) 100 mls @ 200 mls/hr IVPB DAILY [facility] Last Admin: 05/02/17 09:17 Dose: 200 mls/hr Sodium Chloride (Normal Saline -) 1,000 mls @ 50 mls/hr IV ASDIR [facility] Last Admin: 05/01/17 17:50 Dose: 50 mls/hr Potassium Phosphate 30 mm/ (Dextrose) 510 mls @ 63.75 mls/hr IVPB ONCE ONE Stop: 05/02/17 18:59 Last Admin: 05/02/17 11:35 Dose: 63.75 mls/hr Levetiracetam (Keppra Injection -) 1,000 mg IVPB BID [facility] Last Admin: 05/02/17 09:18 Dose: 1,000 mg Magnesium Chloride (Slow-Mag -) 64 mg PO DAILY [facility] Morphine Sulfate (Morphine Injection -) 2 mg IVPUSH Q3H PRN PRN Reason: PAIN Last Admin: 05/02/17 10:36 Dose: 2 mg Pantoprazole Sodium (Protonix -) 40 mg PO BID [facility] Last Admin: 05/02/17 09:19 Dose: 40 mg Potassium Phos/Sodium Phos (Phos-Nak Packet -) 1 packet PO TID [facility] Stop: 05/04/17 06:01 Last Admin: 05/02/17 13:09 Dose: 1 packet A/P 52 year old woman with PMhx of Scleroderma, CREST Syndrome, COPD, CHF, Narcotic dependence, Hypothyrodism who presented with AMS and Seizure and found to have PRASHANT, Hyponatremia, Hypokalemia and Pseduohypocalcemia. #Acute Kidney Injury Renal function stable at this tiem #Hypophosphatemia Give IV K phos and oral neutraphos Trend daily encorged oral intake #Hypokalemia/Hypomagnesemia supplement to keep K ~4 give Mg sulfate 2g IV Trend electrolytes daily #Seizures on presentation on Keppra no further seizure neurology follow up Thank you Srinivasan Tijerina DO
[2017-05-02] MEDS: SODIUM CHLORIDE 1,000 ML IV SCH (18:14)
[2017-05-03] MEDS: SODIUM CHLORIDE 1,000 ML IV SCH ×3 (05:17→23:48)
[2017-05-03] MEDS: NAPH,MB-DB/K PH,MBDB POWDER PACKET PO SCH ×3 (06:15→22:04)
[2017-05-03] MEDS: morphine CARPU-JECT 4 MG/1 ML DISP.SYRIN IVPUSH PRN ×5 (06:16→18:20)
[2017-05-03 07:52] LABS: MCH 28.6 pg (25.7-33.7); MCHC 33.6 g/dl (32.0-36.0); MEAN CELL VOLUME 85.3 fl (80-96); MEAN PLT VOLUME 7.7 fl (7.5-11.1); PLATELET COUNT 264 K/MM3 (134-434); RDW 16.7 % (11.6-15.6); WHITE BLOOD COUNT 5.8 K/mm3 (4.0-10.0)
[2017-05-03 08:11] LABS: ANION GAP 7 (8-16); CALCIUM 7.5 mg/dL (8.5-10.1); CO2 26 mmol/L (21-32); CREATININE 0.5 mg/dL (0.55-1.02); GLUCOSE,RANDOM 79 mg/dL (74-106); MAGNESIUM 1.9 mg/dL (1.8-2.4); PHOSPHOROUS 2.5 mg/dL (2.5-4.9)
[2017-05-03] MEDS ORDERED: DEXTROSE 5%-WATER 100 ML IVPB ONE (09:22)
[2017-05-03] MEDS: HEPARIN NA (PORCINE) 5,000 UNITS/ML 1ML VIAL SQ SCH ×2 (09:35→21:46)
[2017-05-03] MEDS: CEFTRIAXONE 2 GM in DEXTROSE 5%-WATER 100 ML IVPB SCH (09:35)
[2017-05-03] MEDS: levETIRAcetam 500 MG/5 ML INJECTION VIAL IVPB SCH (09:37)
[2017-05-03] MEDS: PANTOPRAZOLE 40 MG TABLET (FP) PO SCH ×2 (09:42→21:45)
[2017-05-03] MEDS: ARFORMOTEROL TARTRATE 15 MCG/2 ML VIAL NEB SCH ×2 (10:25→21:49)
--- NOTE | 2017-05-03 12:11 | PN ---
Progress Note (short form) - Note Progress Note: PULMONARY AWAKE/ALERT EATING LUNCH/APPEARS DYSPNEIC/REFUSES O2 AT THE MOMENT VSS/AFEBRILE ANICTERIC SCATTERED CRACKLES S1S2 BS+ SOFT NO EDEMA LABS/MEDS/NOTES/IMAGING/MICRO REVIEWED Acute on Chronic Hypercapneic Respiratory Failure improving Seizure Episode Opiate Dependent Scleroderma/CREST syndrome Pneumothorax s/p chest tube placement/removal Pneumonia Anemia - complete antibiotics - antiepileptics - aspiration precautions - inhaled bronchodilators - O2 to keep SpO2 >88% - establish peripheral access and d/c central line - DVT - encourage use of O2 Sandra ZAPIEN MD
--- NOTE | 2017-05-03 12:43 | PN ---
Progress Note, Physician History of Present Illness: Pt w/o CP, palp, abd pain, N, V, diarrhea. Pt with SOB occasionally. - Current Medication List Current Medications: Active Medications Acetaminophen (Tylenol -) 650 mg PO Q6H PRN PRN Reason: FEVER Al Hydroxide/Mg Hydroxide (Mylanta Oral Suspension -) 30 ml PO Q6HPO PRN PRN Reason: INDIGESTION Last Admin: 05/02/17 12:52 Dose: 30 ml Albuterol Sulfate (Ventolin 0.083% Nebulizer Soln -) 1 amp NEB Q4H PRN PRN Reason: SHORT OF BREATH/WHEEZING Last Admin: 04/30/17 18:56 Dose: 1 amp Arformoterol Tartrate (Brovana (Restricted To Pulmonology/Resp) -) 1 amp NEB BID [facility] Last Admin: 05/03/17 10:25 Dose: 1 amp Heparin Sodium (Porcine) (Heparin -) 5,000 unit SQ BID [facility] Last Admin: 05/03/17 09:35 Dose: 5,000 unit Ceftriaxone Sodium 2 gm/ (Dextrose) 100 mls @ 200 mls/hr IVPB DAILY [facility] Last Admin: 05/03/17 09:35 Dose: 200 mls/hr Sodium Chloride (Normal Saline -) 1,000 mls @ 50 mls/hr IV ASDIR [facility] Last Admin: 05/03/17 05:17 Dose: 50 mls/hr Levetiracetam (Keppra Injection -) 1,000 mg IVPB BID [facility] Last Admin: 05/03/17 09:37 Dose: 1,000 mg Magnesium Chloride (Slow-Mag -) 64 mg PO DAILY [facility] Morphine Sulfate (Morphine Injection -) 2 mg IVPUSH Q3H PRN PRN Reason: PAIN Last Admin: 05/03/17 09:35 Dose: 2 mg Pantoprazole Sodium (Protonix -) 40 mg PO BID [facility] Last Admin: 05/03/17 09:42 Dose: 40 mg Potassium Phos/Sodium Phos (Phos-Nak Packet -) 1 packet PO TID [facility] Stop: 05/04/17 06:01 Last Admin: 05/03/17 06:15 Dose: 1 packet - Objective Vital Signs: Vital Signs Temperature 98.7 F 05/02/17 22:00 Pulse Rate 101 H 05/03/17 10:20 Respiratory Rate 20 05/03/17 07:56 Blood Pressure 120/81 05/02/17 22:00 O2 Sat by Pulse Oximetry (%) 97 05/03/17 10:20 Constitutional: Yes: No Distress, Calm Cardiovascular: Yes: Regular Rate and Rhythm, S1, S2 Respiratory: Yes: Regular, Other (coarse BS) Gastrointestinal: Yes: Normal Bowel Sounds, Soft. No: Tenderness Edema: No Neurological: Yes: Alert, Oriented Labs: CBC, BMP 05/03/17 06:00 05/03/17 06:00 INR, PTT INR 1.47 (0.82-1.09) H 05/01/17 06:00 Problem List - Problems (1) Altered mental status Code(s): R41.82 - ALTERED MENTAL STATUS, UNSPECIFIED (2) Acute renal failure Code(s): N17.9 - ACUTE KIDNEY FAILURE, UNSPECIFIED Qualifiers: Qualified Code(s): N17.9 - Acute kidney failure, unspecified (3) Acute respiratory failure Code(s): J96.00 - ACUTE RESPIRATORY FAILURE, UNSP W HYPOXIA OR HYPERCAPNIA Qualifiers: Qualified Code(s): J96.02 - Acute respiratory failure with hypercapnia (4) Pneumothorax on right Code(s): J93.9 - PNEUMOTHORAX, UNSPECIFIED (5) S/P chest tube placement Code(s): Z93.8 - OTHER ARTIFICIAL OPENING STATUS (6) Hypokalemia Code(s): E87.6 - HYPOKALEMIA (7) Seizure Code(s): R56.9 - UNSPECIFIED CONVULSIONS (8) Hypotension Code(s): I95.9 - HYPOTENSION, UNSPECIFIED (9) COPD (chronic obstructive pulmonary disease) Code(s): J44.9 - CHRONIC OBSTRUCTIVE PULMONARY DISEASE, UNSPECIFIED (10) CREST syndrome Code(s): M34.1 - CR(E)ST SYNDROME (11) Raynauds disease Code(s): I73.00 - RAYNAUD'S SYNDROME WITHOUT GANGRENE (12) Scleroderma Code(s): M34.9 - SYSTEMIC SCLEROSIS, UNSPECIFIED Assessment/Plan Pt with multiple comorbidities at baseline, now admitted with AMS , s/p fall, withnessed seisure, in acute respiratory failure s/p intubation, right side large pneumothorax (possible secondary to TLC placement as 1-st CXR w/o pneumothorax), hypotension, possible aspiration PNA. Seizure- to reccal Neuro for reevaluation/ medication management Hypomagnesemia- corrected Hypophosphatemia- corrected Opiates dependance- Pain mangement consult. Pt was admitted to ICU, now transferred to medical floor. CCM/ Pulmonary, Neuro, Renal, ID consult appreciated. IV abtx DVT and GI proxylasis OOBTC PT AM labs. Prognosis: reserved.
[2017-05-03] MEDS ORDERED: PT OWN MED DRAWER 7, Y5N ONE (12:52)
[2017-05-03] MEDS: MAGNESIUM CL 64 MG TABLET.SA PO SCH (12:52)
--- NOTE | 2017-05-03 13:24 | PN ---
Progress Note (short form) - Note Progress Note: Renal Follow up for PRASHANT/Hyponatremia Pt seen and examined at the bedside no complaints no sob, chest pain, abd pain no further diarrhea since yesterday eating well. Vital Signs Temperature 98.7 F 05/02/17 22:00 Pulse Rate 101 H 05/03/17 10:20 Respiratory Rate 20 05/03/17 07:56 Blood Pressure 120/81 05/02/17 22:00 O2 Sat by Pulse Oximetry (%) 97 05/03/17 10:20 Intake & Output 04/30/17 05/01/17 05/02/17 05/03/17 23:59 23:59 23:59 23:59 Intake Total 1450 1800 950 670 Balance 1450 1800 950 670 Weight 90 lb 7 oz 96 lb 3 oz 95 lb 8 oz 92 lb 4 oz Gen: NAD, awake and alert CVS: RRR, No M/R Lungs: CTA, no rales or wheeze Abd: soft NT/ND Ext: No edema, clubbing or cyanosis Neuro: AAOx3, no focal defects CBC, BMP 05/03/17 06:00 05/03/17 06:00 A/P 52 year old woman with PMhx of Scleroderma, CREST Syndrome, COPD, CHF, Narcotic dependence, Hypothyrodism who presented with AMS and Seizure and found to have PRASHANT, Hyponatremia, Hypokalemia and Pseduohypocalcemia. #Acute Kidney Injury renal function now stable #Hypophosphatemia improve s/p supplamentation hopefully will remain stable now that diarrhea has resolved #Hypokalemia/Hypomagnesemia at goal today trend daily #Seizures on presentation on Keppra no further seizure neurology follow up Thank you Srinivasan Tijerina DO
--- NOTE | 2017-05-03 19:20 | CONSULT ---
Consult Consult Specialty:: back pain Referred by:: dr cope Reason for Consultation:: back pain - History of Present Illness Chief Complaint: back pain History of Present Illness: 52 year old woman with PMhx of Scleroderma, CREST Syndrome, COPD, CHF, Narcotic dependence, Hypothyrodism who presented with AMS and Seizure and found to have PRASHANT, Hyponatremia, Hypokalemia and Pseduohypocalcemia. Pt was found unresponsive at home and had a witnessed seizure in the ED. CUrrently patient is awake and alert. She reports her back pain is severe. - Past Medical History SCREW REMOVER: Yes: Peripheral Neuropathy Cardio/Vascular: Yes: Aortic Insufficiency (mild), Mitral Insufficiency (mild), Other (Raynaud's w/ multiple upper extremity digit amputations. Normal coronaries on cardiac cath and EF 65% with mild AI, trace MR and TR on [place] [facility] [place] Pulmonary: Yes: Asthma, COPD, Pneumonia, Other (lung mass of undetermined etiology) Gastrointestinal: Yes: Constipation, Diverticulitis, Diverticulosis (small bowel diverticular perforation, scleroderma affecting the esophagus, Bonner's esophagus, Schatzki ring,, antral ulcer, gastroparesis related to scleroderma), GERD (with long segment Bonner's esophagus and patent Schatzki ring), Peptic Ulcer Disease (antral ulcer ), Other (Bonner's esophagus, GERD, Schatzki ring, perforation of small bowel diverticulum, antral ulcer, scleroderma causing esophageal dysmotility and gastroparesis, GERD with long segment Bonner's esophagus,Schatzki ring,GAVE syndrome) Renal/: Yes: Renal Failure Infectious Disease: Yes: MRSA (bursitis) Psych: Yes: Addictions (marijuana,tobacco and prescription narcotics) Musculoskeletal: Yes: Chronic low back pain, Other (has spinal stimulator) Rheumatology: Yes: Vasculitis, Other (Scleroderma, Raynauds and CREST syndrome) Endocrine: Yes: Hypothyroidism, Other (Malnutrition, osteoporosis) Dermatology: Yes: Cellulitis - Past Surgical History Past Surgical History: Yes: Appendectomy, Colonoscopy, Upper Endoscopy - Alcohol/Substance Use Hx Alcohol Use: No History of Substance Use: reports: Marijuana, Prescription - Smoking History Smoking history: Former smoker Have you smoked in the past 12 months: Yes Aproximately how many cigarettes per day: 10 If you are a former smoker, when did you quit?: 4 years ago - Social History Usual Living Arrangement: With Parent ADL: Independent Occupation: disabled History of Recent Travel: No Home Medications - Allergies Allergies/Adverse Reactions: Allergies Allergy/AdvReac Type Severity Reaction Status Date / Time Penicillins Allergy Severe Hives Verified 04/25/17 10:48 tomato AdvReac Uncoded 04/25/17 10:48 - Home Medications Home Medications: Ambulatory Orders Duloxetine HCl [Cymbalta -] 60 mg PO DAILY #30 capsule. 03/10/15 Albuterol 0.083% Nebulizer Cinthya [Ventolin 0.083% Nebulizer Soln -] 1 amp NEB Q4H PRN #1 amp 04/11/16 Aspirin [ASA -] 81 mg PO DAILY tab.chew 04/11/16 Budesonide/Formeterol Fumarate [SYMBICORT 80/4.5mcg -] 2 puff IH BID #1 inhaler 04/11/16 Ranitidine [Zantac -] 150 mg PO DAILY 05/27/16 Aclidinium Aquilla [Tudorza -] 1 puff IH DAILY inhaler 07/20/16 Lactobacillus Acidophilus [Bacid -] 1 each PO DAILY #30 capsule 07/20/16 Metoclopramide HCl [Reglan -] 10 mg PO ACHS tablet 07/20/16 Acetaminophen [Tylenol .Regular Strength -] 650 mg PO Q6H PRN #0 tablet Hydroxychloroquine So4 [Plaquenil -] 200 mg PO BID tablet 07/31/16 Pantoprazole Sodium [Protonix -] 40 mg PO BID tablet.ec 07/31/16 Lidocaine 5% Patch [Lidoderm -] 2 patch TP DAILY #60 patch 09/16/16 Albuterol 2.5/Ipratropium 0.5 [Duoneb -] 1 amp NEB BID amp 12/17/16 Multivitamins [Multivit ([facility] Formul[facility])] 1 tab PO DAILY tab 12/17/16 Magnesium Oxide [Mag-Ox -] 400 mg PO BID #30 tablet MDD 2 12/18/16 Potassium Chloride [K-Dur -] 20 meq PO DAILY #30 tab 12/18/16 Bisacodyl Suppository [Dulcolax Suppository -] 10 mg RC DAILY PRN #0 supp.rect 01/01/17 Family Disease History - Family Disease History Family Disease History: Diabetes: Father (HCV), Heart Disease: Father, Mother, Other: Father, Brother (HIV) Physical Exam Vital Signs: Vital Signs Temperature 99.1 F 05/03/17 19:11 Pulse Rate 105 H 05/03/17 19:11 Respiratory Rate 18 05/03/17 19:11 Blood Pressure 114/76 05/03/17 19:11 O2 Sat by Pulse Oximetry (%) 96 05/03/17 13:55 Musculoskeletal: Yes: Back Pain Labs: CBC, BMP 05/03/17 06:00 05/03/17 06:00 Assessment/Plan 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 Patient has been treated by dr cedeño office for a number of years with high dose opioids including oxycontin 80mg PO q8h and MS IR 15mg PO q8h prn pain I would not recommend that regimen. Please consider opioid weaning and addiction medicine consultation for possible methadone maintenance or suboxone treatment. For now Please consider oxycontin 20mg PO 12h- no other opioid would be recommend consider gabapentin 300mg PO q8h if no contraindications Neurology eval
[2017-05-03] MEDS: levETIRAcetam 500 MG TABLET (FP) PO SCH (21:45)
[2017-05-03] MEDS ORDERED: levETIRAcetam 500 MG TABLET (FP) PO SCH (22:00)
[2017-05-03] MEDS: morphine CARPU-JECT 2 MG/1 ML DISP.SYRIN IVPUSH PRN (22:04)
[2017-05-04] MEDS: MAG HYDROX/AL HYDROX/SIMETH 30 ML UNIT-DOSE CUP PO PRN (00:41)
[2017-05-04] MEDS ORDERED: ONDANSETRON 4 MG/2 ML VIAL IVPB PRN (01:08)
[2017-05-04] MEDS: NAPH,MB-DB/K PH,MBDB POWDER PACKET PO SCH (06:45)
[2017-05-04] MEDS: morphine CARPU-JECT 2 MG/1 ML DISP.SYRIN IVPUSH PRN ×5 (07:06→21:19)
[2017-05-04 07:23] LABS: BASOPHIL 0.4 % (0-2.0); EOSINOPHIL 5.8 % (0-4.5); MCH 29.1 pg (25.7-33.7); MCHC 33.9 g/dl (32.0-36.0); MEAN CELL VOLUME 85.9 fl (80-96); MEAN PLT VOLUME 7.8 fl (7.5-11.1); NEUTROPHILS 72.8 % (42.8-82.8); PLATELET COUNT 327 K/MM3 (134-434); RDW 16.7 % (11.6-15.6); WHITE BLOOD COUNT 7.5 K/mm3 (4.0-10.0)
[2017-05-04 07:53] LABS: ANION GAP 7 (8-16); CALCIUM 7.7 mg/dL (8.5-10.1); CO2 28 mmol/L (21-32); CREATININE 0.4 mg/dL (0.55-1.02); GLUCOSE,RANDOM 71 mg/dL (74-106); MAGNESIUM 1.6 mg/dL (1.8-2.4); PHOSPHOROUS 2.8 mg/dL (2.5-4.9)
[2017-05-04] MEDS ORDERED: DEXTROSE 5%-WATER 100 ML IVPB ONE (09:37)
[2017-05-04] MEDS: levETIRAcetam 500 MG TABLET (FP) PO SCH ×2 (09:41→21:19)
[2017-05-04] MEDS: CEFTRIAXONE 2 GM in DEXTROSE 5%-WATER 100 ML IVPB SCH (09:41)
[2017-05-04] MEDS: PANTOPRAZOLE 40 MG TABLET (FP) PO SCH ×2 (09:41→21:20)
[2017-05-04] MEDS: HEPARIN NA (PORCINE) 5,000 UNITS/ML 1ML VIAL SQ SCH ×2 (09:42→21:22)
[2017-05-04] MEDS ORDERED: MAGNESIUM SULF 50% (8.12 MEQ/2 ML-1 GM VIAL) IVPB ONE ×2 (09:44→10:00)
[2017-05-04] MEDS: MAGNESIUM CL 64 MG TABLET.SA PO SCH (10:00)
[2017-05-04] MEDS: ARFORMOTEROL TARTRATE 15 MCG/2 ML VIAL NEB SCH ×2 (10:05→23:20)
[2017-05-04] MEDS: MAGNESIUM SULF 50% (8.12 MEQ/2 ML-1 GM VIAL) IVPB SCH ×2 (11:14→13:03)
--- NOTE | 2017-05-04 11:29 | PN ---
Progress Note (short form) - Note Progress Note: Renal Follow up for PRASHANT/Hyponatremia Pt seen and examined at the bedside no complaints apart from chronic back pain had a little diarrhea this am no sob, chest pain, abd pain Vital Signs Temperature 98.1 F 05/04/17 10:00 Pulse Rate 99 H 05/04/17 10:00 Respiratory Rate 18 05/04/17 10:00 Blood Pressure 120/78 05/04/17 10:00 O2 Sat by Pulse Oximetry (%) 97 05/03/17 21:00 Intake & Output 05/01/17 05/02/17 05/03/17 05/04/17 23:59 23:59 23:59 23:59 Intake Total 9965 085 7045 550 Output Total 800 Balance 8017 752 2134 -250 Weight 96 lb 3 oz 95 lb 8 oz 92 lb 4 oz 95 lb 1.6 oz Gen: NAD, awake and alert CVS: RRR, No M/R Lungs: CTA, no rales or wheeze Abd: soft NT/ND Ext: No edema, clubbing or cyanosis Neuro: AAOx3, no focal defects CBC, BMP 05/04/17 06:30 05/04/17 06:30 Current Medications Acetaminophen (Tylenol -) 650 mg PO Q6H PRN PRN Reason: FEVER Al Hydroxide/Mg Hydroxide (Mylanta Oral Suspension -) 30 ml PO Q6HPO PRN PRN Reason: INDIGESTION Last Admin: 05/04/17 00:41 Dose: 30 ml Albuterol Sulfate (Ventolin 0.083% Nebulizer Soln -) 1 amp NEB Q4H PRN PRN Reason: SHORT OF BREATH/WHEEZING Last Admin: 04/30/17 18:56 Dose: 1 amp Arformoterol Tartrate (Brovana (Restricted To Pulmonology/Resp) -) 1 amp NEB BID [facility] Last Admin: 05/04/17 10:05 Dose: Not Given Heparin Sodium (Porcine) (Heparin -) 5,000 unit SQ BID [facility] Last Admin: 05/04/17 09:42 Dose: 5,000 unit Ceftriaxone Sodium 2 gm/ (Dextrose) 100 mls @ 200 mls/hr IVPB DAILY [facility] Last Admin: 05/04/17 09:41 Dose: 200 mls/hr Sodium Chloride (Normal Saline -) 1,000 mls @ 50 mls/hr IV ASDIR [facility] Last Admin: 05/03/17 23:48 Dose: 50 mls/hr Levetiracetam (Keppra -) 1,000 mg PO BID [facility] Last Admin: 05/04/17 09:41 Dose: 1,000 mg Magnesium Chloride (Slow-Mag -) 64 mg PO DAILY [facility] Last Admin: 05/04/17 10:00 Dose: 64 mg Magnesium Sulfate (Magnesium Sulfate) 1 gm IVPB ONCE ONE Stop: 05/04/17 09:45 Last Admin: 05/04/17 10:56 Dose: Not Given Magnesium Sulfate (Magnesium Sulfate) 2 gm IVPB Q1H [facility] Stop: 05/04/17 12:01 Last Admin: 05/04/17 11:14 Dose: 2 gm Morphine Sulfate (Morphine Injection -) 2 mg IVPUSH Q3H PRN PRN Reason: PAIN Last Admin: 05/04/17 10:38 Dose: 2 mg Ondansetron HCl (Zofran Injection) 8 mg IVPB Q6H PRN PRN Reason: NAUSEA AND/OR VOMITING Last Admin: 05/04/17 01:21 Dose: 8 mg Pantoprazole Sodium (Protonix -) 40 mg PO BID [facility] Last Admin: 05/04/17 09:41 Dose: 40 mg A/P 52 year old woman with PMhx of Scleroderma, CREST Syndrome, COPD, CHF, Narcotic dependence, Hypothyrodism who presented with AMS and Seizure and found to have PRASHANT, Hyponatremia, Hypokalemia and Pseduohypocalcemia. #Acute Kidney Injury renal function now stable #Hypophosphatemia WNL today Trend daily while inpatient oral intake as tolerated #Hypokalemia/Hypomagnesemia will give Mg Sulfate 4g IV today start oral slo-mg daily starting tomorrow #Seizures on presentation on Keppra no further seizure neurology follow up Thank you Srinivasan Tijerina DO
--- NOTE | 2017-05-04 12:51 | PN ---
Progress Note (short form) - Note Progress Note: PULMONARY Breathing better. Denies cough or wheezing. No fevers or chills. Last Vital Signs Temp Pulse Resp BP Pulse Ox 98.1 F 99 H 18 120/78 97 05/04/17 10:00 05/04/17 10:00 05/04/17 10:00 05/04/17 10:00 05/03/17 21:00 Gen: mildly tachypneic with speaking Heart: RRR Lung: distant breath sounds Abd: soft, nontender Ext: no edema CBC, BMP 05/04/17 06:30 05/04/17 06:30 Active Medications Acetaminophen (Tylenol -) 650 mg PO Q6H PRN PRN Reason: FEVER Al Hydroxide/Mg Hydroxide (Mylanta Oral Suspension -) 30 ml PO Q6HPO PRN PRN Reason: INDIGESTION Last Admin: 05/04/17 00:41 Dose: 30 ml Albuterol Sulfate (Ventolin 0.083% Nebulizer Soln -) 1 amp NEB Q4H PRN PRN Reason: SHORT OF BREATH/WHEEZING Last Admin: 04/30/17 18:56 Dose: 1 amp Arformoterol Tartrate (Brovana (Restricted To Pulmonology/Resp) -) 1 amp NEB BID [facility] Last Admin: 05/04/17 10:05 Dose: Not Given Heparin Sodium (Porcine) (Heparin -) 5,000 unit SQ BID [facility] Last Admin: 05/04/17 09:42 Dose: 5,000 unit Ceftriaxone Sodium 2 gm/ (Dextrose) 100 mls @ 200 mls/hr IVPB DAILY [facility] Last Admin: 05/04/17 09:41 Dose: 200 mls/hr Sodium Chloride (Normal Saline -) 1,000 mls @ 50 mls/hr IV ASDIR [facility] Last Admin: 05/03/17 23:48 Dose: 50 mls/hr Levetiracetam (Keppra -) 1,000 mg PO BID [facility] Last Admin: 05/04/17 09:41 Dose: 1,000 mg Magnesium Chloride (Slow-Mag -) 64 mg PO DAILY [facility] Last Admin: 05/04/17 10:00 Dose: 64 mg Morphine Sulfate (Morphine Injection -) 2 mg IVPUSH Q3H PRN PRN Reason: PAIN Last Admin: 05/04/17 10:38 Dose: 2 mg Ondansetron HCl (Zofran Injection) 8 mg IVPB Q6H PRN PRN Reason: NAUSEA AND/OR VOMITING Last Admin: 05/04/17 01:21 Dose: 8 mg Pantoprazole Sodium (Protonix -) 40 mg PO BID [facility] Last Admin: 05/04/17 09:41 Dose: 40 mg A/P Acute on Chronic Hypercapneic Respiratory Failure improving Seizure Episode Opiate Dependent Scleroderma/CREST syndrome Pneumothorax s/p chest tube placement/removal Pneumonia Anemia - complete antibiotics - antiepileptics - aspiration precautions - inhaled bronchodilators - O2 to keep SpO2 >88% - establish peripheral access and d/c central line - DVT prophylaxis
--- NOTE | 2017-05-04 14:35 | PN ---
Progress Note, Physician History of Present Illness: Pt w/o SOB, CP, palp, abd pain, N, diarrhea. Pt vomitted once last night after eating spicy food and had heartburns. - Current Medication List Current Medications: Active Medications Acetaminophen (Tylenol -) 650 mg PO Q6H PRN PRN Reason: FEVER Al Hydroxide/Mg Hydroxide (Mylanta Oral Suspension -) 30 ml PO Q6HPO PRN PRN Reason: INDIGESTION Last Admin: 05/04/17 00:41 Dose: 30 ml Albuterol Sulfate (Ventolin 0.083% Nebulizer Soln -) 1 amp NEB Q4H PRN PRN Reason: SHORT OF BREATH/WHEEZING Last Admin: 04/30/17 18:56 Dose: 1 amp Arformoterol Tartrate (Brovana (Restricted To Pulmonology/Resp) -) 1 amp NEB BID [facility] Last Admin: 05/04/17 10:05 Dose: Not Given Heparin Sodium (Porcine) (Heparin -) 5,000 unit SQ BID [facility] Last Admin: 05/04/17 09:42 Dose: 5,000 unit Ceftriaxone Sodium 2 gm/ (Dextrose) 100 mls @ 200 mls/hr IVPB DAILY [facility] Last Admin: 05/04/17 09:41 Dose: 200 mls/hr Sodium Chloride (Normal Saline -) 1,000 mls @ 50 mls/hr IV ASDIR [facility] Last Admin: 05/03/17 23:48 Dose: 50 mls/hr Levetiracetam (Keppra -) 1,000 mg PO BID [facility] Last Admin: 05/04/17 09:41 Dose: 1,000 mg Magnesium Chloride (Slow-Mag -) 64 mg PO DAILY [facility] Last Admin: 05/04/17 10:00 Dose: 64 mg Morphine Sulfate (Morphine Injection -) 2 mg IVPUSH Q3H PRN PRN Reason: PAIN Last Admin: 05/04/17 13:42 Dose: 2 mg Ondansetron HCl (Zofran Injection) 8 mg IVPB Q6H PRN PRN Reason: NAUSEA AND/OR VOMITING Last Admin: 05/04/17 01:21 Dose: 8 mg Pantoprazole Sodium (Protonix -) 40 mg PO BID [facility] Last Admin: 05/04/17 09:41 Dose: 40 mg - Objective Vital Signs: Vital Signs Temperature 99.3 F 05/04/17 13:56 Pulse Rate 103 H 05/04/17 13:56 Respiratory Rate 18 05/04/17 13:56 Blood Pressure 107/67 05/04/17 13:56 O2 Sat by Pulse Oximetry (%) 98 05/04/17 09:00 Constitutional: Yes: No Distress, Calm, Other (sitting in the chair) Cardiovascular: Yes: Regular Rate and Rhythm, S1, S2 Respiratory: Yes: Regular, Rales (scattered, bilat.) Gastrointestinal: Yes: Normal Bowel Sounds, Soft. No: Tenderness Edema: No Neurological: Yes: Alert, Oriented Labs: CBC, BMP 05/04/17 06:30 05/04/17 06:30 INR, PTT INR 1.47 (0.82-1.09) H 05/01/17 06:00 Problem List - Problems (1) Altered mental status Code(s): R41.82 - ALTERED MENTAL STATUS, UNSPECIFIED (2) Acute renal failure Code(s): N17.9 - ACUTE KIDNEY FAILURE, UNSPECIFIED Qualifiers: Qualified Code(s): N17.9 - Acute kidney failure, unspecified (3) Acute respiratory failure Code(s): J96.00 - ACUTE RESPIRATORY FAILURE, UNSP W HYPOXIA OR HYPERCAPNIA Qualifiers: Qualified Code(s): J96.02 - Acute respiratory failure with hypercapnia (4) Pneumothorax on right Code(s): J93.9 - PNEUMOTHORAX, UNSPECIFIED (5) S/P chest tube placement Code(s): Z93.8 - OTHER ARTIFICIAL OPENING STATUS (6) Hypokalemia Code(s): E87.6 - HYPOKALEMIA (7) Seizure Code(s): R56.9 - UNSPECIFIED CONVULSIONS (8) Hypotension Code(s): I95.9 - HYPOTENSION, UNSPECIFIED (9) COPD (chronic obstructive pulmonary disease) Code(s): J44.9 - CHRONIC OBSTRUCTIVE PULMONARY DISEASE, UNSPECIFIED (10) CREST syndrome Code(s): M34.1 - CR(E)ST SYNDROME (11) Raynauds disease Code(s): I73.00 - RAYNAUD'S SYNDROME WITHOUT GANGRENE (12) Scleroderma Code(s): M34.9 - SYSTEMIC SCLEROSIS, UNSPECIFIED Assessment/Plan Pt with multiple comorbidities at baseline, now admitted with AMS , s/p fall, withnessed seisure, in acute respiratory failure s/p intubation, right side large pneumothorax (possible secondary to TLC placement as 1-st CXR w/o pneumothorax), hypotension, possible aspiration PNA. Seizure- to reccal Neuro for reevaluation/ medication management Hypomagnesemia- corrected Hypophosphatemia- corrected Opiates dependance- Pain mangement consult appreciated; pt doesn't want to see addiction medicine specialist so can come of opiates. To start Neurontine Pt was admitted to ICU, now transferred to medical floor. CCM/ Pulmonary, Neuro, Renal, ID consult appreciated. IV abtx DVT and GI proxylasis OOBTC PT AM labs. Prognosis: reserved.
[2017-05-04] MEDS: GABAPENTIN 300 MG CAPSULE (FP) PO SCH ×2 (15:34→21:20)
[2017-05-04] MEDS: SODIUM CHLORIDE 1,000 ML IV SCH (17:11)
[2017-05-05] MEDS: morphine CARPU-JECT 2 MG/1 ML DISP.SYRIN IVPUSH PRN ×3 (01:27→10:29)
[2017-05-05] MEDS: SODIUM CHLORIDE 1,000 ML IV SCH ×3 (01:28→21:54)
[2017-05-05] MEDS: GABAPENTIN 300 MG CAPSULE (FP) PO SCH ×3 (05:37→21:53)
[2017-05-05] MEDS: ALBUTEROL SO4 0.083% IH SOL 2.5 MG/3 ML VIAL.NEB. NEB PRN (05:50)
[2017-05-05 07:26] LABS: BASOPHIL 0.7 % (0-2.0); EOSINOPHIL 4.5 % (0-4.5); MCH 29.2 pg (25.7-33.7); MCHC 33.6 g/dl (32.0-36.0); MEAN PLT VOLUME 7.6 fl (7.5-11.1); NEUTROPHILS 74.3 % (42.8-82.8); PLATELET COUNT 362 K/MM3 (134-434); RDW 17.1 % (11.6-15.6); WHITE BLOOD COUNT 7.6 K/mm3 (4.0-10.0)
[2017-05-05 07:52] LABS: ANION GAP 8 (8-16); CO2 28 mmol/L (21-32); GLUCOSE,RANDOM 80 mg/dL (74-106); MAGNESIUM 2.1 mg/dL (1.8-2.4)
[2017-05-05 07:53] LABS: CREATININE 0.4 mg/dL (0.55-1.02)
[2017-05-05] MEDS ORDERED: DEXTROSE 5%-WATER 100 ML IVPB ONE (10:24)
[2017-05-05] MEDS: CEFTRIAXONE 2 GM in DEXTROSE 5%-WATER 100 ML IVPB SCH (10:30)
[2017-05-05] MEDS: ARFORMOTEROL TARTRATE 15 MCG/2 ML VIAL NEB SCH ×2 (10:30→22:08)
[2017-05-05] MEDS: levETIRAcetam 500 MG TABLET (FP) PO SCH ×2 (10:31→21:53)
[2017-05-05] MEDS: PANTOPRAZOLE 40 MG TABLET (FP) PO SCH ×2 (10:31→21:53)
[2017-05-05] MEDS: MAGNESIUM CL 64 MG TABLET.SA PO SCH (10:32)
[2017-05-05] MEDS: HEPARIN NA (PORCINE) 5,000 UNITS/ML 1ML VIAL SQ SCH ×2 (10:32→21:54)
--- NOTE | 2017-05-05 11:07 | PN ---
Progress Note (short form) - Note Progress Note: PULMONARY Breathing better. Denies cough or wheezing. No fevers or chills. Wants to go home. Last Vital Signs Temp Pulse Resp BP Pulse Ox 98.2 F 84 18 122/74 96 05/05/17 10:00 05/05/17 10:00 05/05/17 10:00 05/05/17 10:00 05/04/17 21:00 Gen: mildly tachypneic with speaking Heart: RRR Lung: distant breath sounds Abd: soft, nontender Ext: no edema CBC, BMP 05/05/17 06:00 05/05/17 06:00 Active Medications Acetaminophen (Tylenol -) 650 mg PO Q6H PRN PRN Reason: FEVER Al Hydroxide/Mg Hydroxide (Mylanta Oral Suspension -) 30 ml PO Q6HPO PRN PRN Reason: INDIGESTION Last Admin: 05/04/17 00:41 Dose: 30 ml Albuterol Sulfate (Ventolin 0.083% Nebulizer Soln -) 1 amp NEB Q4H PRN PRN Reason: SHORT OF BREATH/WHEEZING Last Admin: 05/05/17 05:50 Dose: 1 amp Arformoterol Tartrate (Brovana (Restricted To Pulmonology/Resp) -) 1 amp NEB BID [facility] Last Admin: 05/05/17 10:30 Dose: 1 amp Gabapentin (Neurontin -) 300 mg PO TID [facility] Last Admin: 05/05/17 05:37 Dose: 300 mg Heparin Sodium (Porcine) (Heparin -) 5,000 unit SQ BID [facility] Last Admin: 05/05/17 10:32 Dose: 5,000 unit Ceftriaxone Sodium 2 gm/ (Dextrose) 100 mls @ 200 mls/hr IVPB DAILY [facility] Last Admin: 05/05/17 10:30 Dose: 200 mls/hr Sodium Chloride (Normal Saline -) 1,000 mls @ 50 mls/hr IV ASDIR [facility] Last Admin: 05/05/17 01:28 Dose: 50 mls/hr Levetiracetam (Keppra -) 1,000 mg PO BID [facility] Last Admin: 05/05/17 10:31 Dose: 1,000 mg Magnesium Chloride (Slow-Mag -) 64 mg PO DAILY [facility] Last Admin: 05/05/17 10:32 Dose: 64 mg Morphine Sulfate (Morphine Injection -) 2 mg IVPUSH Q3H PRN PRN Reason: PAIN Last Admin: 05/05/17 10:29 Dose: 2 mg Ondansetron HCl (Zofran Injection) 8 mg IVPB Q6H PRN PRN Reason: NAUSEA AND/OR VOMITING Last Admin: 05/04/17 01:21 Dose: 8 mg Pantoprazole Sodium (Protonix -) 40 mg PO BID [facility] Last Admin: 05/05/17 10:31 Dose: 40 mg A/P Acute on Chronic Hypercapneic Respiratory Failure improving Seizure Episode Opiate Dependent Scleroderma/CREST syndrome Pneumothorax s/p chest tube placement/removal Pneumonia Anemia - complete antibiotics - antiepileptics - aspiration precautions - inhaled bronchodilators - O2 to keep SpO2 >88% - establish peripheral access and d/c central line - DVT prophylaxis
[2017-05-05] MEDS ORDERED: oxyCODONE HCL 20 MG SUSTAINED ACTING TABLET PO ONE (13:23)
[2017-05-05] MEDS ORDERED: morphine CARPU-JECT 2 MG/1 ML DISP.SYRIN IVPB PRN ×2 (13:45→20:11)
--- NOTE | 2017-05-05 13:46 | PN ---
Progress Note, Physician History of Present Illness: Pt w/o SOB, CP, palp, abd pain, N, V, diarrhea. Pt wants to go Home (for the last few days, states that she is feeling "great"). - Current Medication List Current Medications: Active Medications Acetaminophen (Tylenol -) 650 mg PO Q6H PRN PRN Reason: FEVER Al Hydroxide/Mg Hydroxide (Mylanta Oral Suspension -) 30 ml PO Q6HPO PRN PRN Reason: INDIGESTION Last Admin: 05/04/17 00:41 Dose: 30 ml Albuterol Sulfate (Ventolin 0.083% Nebulizer Soln -) 1 amp NEB Q4H PRN PRN Reason: SHORT OF BREATH/WHEEZING Last Admin: 05/05/17 05:50 Dose: 1 amp Arformoterol Tartrate (Brovana (Restricted To Pulmonology/Resp) -) 1 amp NEB BID [facility] Last Admin: 05/05/17 10:30 Dose: 1 amp Gabapentin (Neurontin -) 300 mg PO TID [facility] Last Admin: 05/05/17 05:37 Dose: 300 mg Heparin Sodium (Porcine) (Heparin -) 5,000 unit SQ BID [facility] Last Admin: 05/05/17 10:32 Dose: 5,000 unit Sodium Chloride (Normal Saline -) 1,000 mls @ 50 mls/hr IV ASDIR [facility] Last Admin: 05/05/17 01:28 Dose: 50 mls/hr Levetiracetam (Keppra -) 1,000 mg PO BID [facility] Last Admin: 05/05/17 10:31 Dose: 1,000 mg Magnesium Chloride (Slow-Mag -) 64 mg PO DAILY [facility] Last Admin: 05/05/17 10:32 Dose: 64 mg Ondansetron HCl (Zofran Injection) 8 mg IVPB Q6H PRN PRN Reason: NAUSEA AND/OR VOMITING Last Admin: 05/04/17 01:21 Dose: 8 mg Pantoprazole Sodium (Protonix -) 40 mg PO BID [facility] Last Admin: 05/05/17 10:31 Dose: 40 mg - Objective Vital Signs: Vital Signs Temperature 98.2 F 05/05/17 10:00 Pulse Rate 84 05/05/17 10:00 Respiratory Rate 18 05/05/17 10:00 Blood Pressure 122/74 05/05/17 10:00 O2 Sat by Pulse Oximetry (%) 96 05/04/17 21:00 Constitutional: Yes: No Distress, Calm Cardiovascular: Yes: Regular Rate and Rhythm, S1, S2 Respiratory: Yes: Regular, Rhonchi (old,) Gastrointestinal: Yes: Normal Bowel Sounds, Soft. No: Tenderness Edema: No Neurological: Yes: Alert, Oriented Labs: CBC, BMP 05/05/17 06:00 05/05/17 06:00 INR, PTT INR 1.47 (0.82-1.09) H 05/01/17 06:00 - ....Imaging X-ray: Report Reviewed Problem List - Problems (1) Altered mental status Code(s): R41.82 - ALTERED MENTAL STATUS, UNSPECIFIED (2) Acute renal failure Code(s): N17.9 - ACUTE KIDNEY FAILURE, UNSPECIFIED Qualifiers: Qualified Code(s): N17.9 - Acute kidney failure, unspecified (3) Acute respiratory failure Code(s): J96.00 - ACUTE RESPIRATORY FAILURE, UNSP W HYPOXIA OR HYPERCAPNIA Qualifiers: Qualified Code(s): J96.02 - Acute respiratory failure with hypercapnia (4) Pneumothorax on right Code(s): J93.9 - PNEUMOTHORAX, UNSPECIFIED (5) S/P chest tube placement Code(s): Z93.8 - OTHER ARTIFICIAL OPENING STATUS (6) Hypokalemia Code(s): E87.6 - HYPOKALEMIA (7) Seizure Code(s): R56.9 - UNSPECIFIED CONVULSIONS (8) Hypotension Code(s): I95.9 - HYPOTENSION, UNSPECIFIED (9) COPD (chronic obstructive pulmonary disease) Code(s): J44.9 - CHRONIC OBSTRUCTIVE PULMONARY DISEASE, UNSPECIFIED (10) CREST syndrome Code(s): M34.1 - CR(E)ST SYNDROME (11) Raynauds disease Code(s): I73.00 - RAYNAUD'S SYNDROME WITHOUT GANGRENE (12) Scleroderma Code(s): M34.9 - SYSTEMIC SCLEROSIS, UNSPECIFIED Assessment/Plan Pt with multiple comorbidities at baseline, now admitted with AMS , s/p fall, withnessed seisure, in acute respiratory failure s/p intubation, right side large pneumothorax (possible secondary to TLC placement as 1-st CXR w/o pneumothorax), hypotension, possible aspiration PNA. Pt was admitted to ICU, now transferred to medical floor. Seizure- pt now on Keppra PO Hypomagnesemia- corrected Hypophosphatemia- corrected Opiates dependance- Pain management consult appreciated; pt doesn't want to see addiction medicine specialist so can come off opiates; again today I had with patient a long discussion about side effects associated with opiates use, the need for patient to be managed in a different way that allows her to come off opiates or be on decreased dose and how a addiction (Detox) specialist would be of help; unfortunately patient doesn't want to hear about it. Pt was started on Neurontin (300 mg Q8H) yesterday. Pt used Morphine IVPB 8 times ( maximum allowed), per pt's nurse. To start today PO oxycodone (20 mg BID); to stop Morphine as oxycodone is started CCM/ Pulmonary, Neuro, Renal, ID consult appreciated. IV abtx to be DC'ed DVT and GI proxylasis OOBTC PT AM labs. Prognosis: reserved. Case was d/w pt's nurse Time spent for managing pt's care: over 40 minutes
[2017-05-05] MEDS: oxyCODONE HCL 10 MG SUSTAINED ACTING TABLET PO SCH (22:42)
[2017-05-06] MEDS ORDERED: morphine CARPU-JECT 2 MG/1 ML DISP.SYRIN IVPB ONE (04:30)
[2017-05-06] MEDS: GABAPENTIN 300 MG CAPSULE (FP) PO SCH ×2 (06:04→14:35)
[2017-05-06 07:30] LABS: MCH 29.3 pg (25.7-33.7); MCHC 33.4 g/dl (32.0-36.0); MEAN CELL VOLUME 87.5 fl (80-96); MEAN PLT VOLUME 7.8 fl (7.5-11.1); PLATELET COUNT 398 K/MM3 (134-434); RDW 17.2 % (11.6-15.6); WHITE BLOOD COUNT 7.2 K/mm3 (4.0-10.0)
[2017-05-06 07:45] LABS: ANION GAP 6 (8-16); CALCIUM 7.7 mg/dL (8.5-10.1); CO2 26 mmol/L (21-32); CREATININE 0.5 mg/dL (0.55-1.02); GLUCOSE,RANDOM 77 mg/dL (74-106); MAGNESIUM 1.6 mg/dL (1.8-2.4)
[2017-05-06] MEDS ORDERED: PT OWN MED DRAWER 7, Y5N ONE (09:25)
[2017-05-06] MEDS: ARFORMOTEROL TARTRATE 15 MCG/2 ML VIAL NEB SCH (09:28)
[2017-05-06] MEDS: oxyCODONE HCL 10 MG SUSTAINED ACTING TABLET PO SCH (09:32)
[2017-05-06] MEDS: levETIRAcetam 500 MG TABLET (FP) PO SCH (09:32)
[2017-05-06] MEDS: PANTOPRAZOLE 40 MG TABLET (FP) PO SCH (09:32)
[2017-05-06] MEDS: HEPARIN NA (PORCINE) 5,000 UNITS/ML 1ML VIAL SQ SCH (09:32)
[2017-05-06] MEDS: MAGNESIUM CL 64 MG TABLET.SA PO SCH (09:32)
--- NOTE | 2017-05-06 10:06 | PN ---
Progress Note (short form) - Note Progress Note: Neurology History of Present Illness: 52 year old female was brought by EMS for AMS, and she was given narcan on the route. She has history of drug over dose in the past. She has one episode of seizures. Patient also have aspiration pneumonia and was intubated. She has not had any seizures since admission to hospital. She has been afebrile. Was contacted by nurse regarding Keppra which was started by Dr. woodard who had seen the patient earlier in hospitalization. Conversion of medication is 1:1, IV to PO. Same dose and frequency. Active Medications Acetaminophen (Tylenol -) 650 mg PO Q6H PRN PRN Reason: FEVER Al Hydroxide/Mg Hydroxide (Mylanta Oral Suspension -) 30 ml PO Q6HPO PRN PRN Reason: INDIGESTION Last Admin: 05/04/17 00:41 Dose: 30 ml Arformoterol Tartrate (Brovana (Restricted To Pulmonology/Resp) -) 1 amp NEB BID [facility] Last Admin: 05/06/17 09:28 Dose: 1 amp Gabapentin (Neurontin -) 300 mg PO TID [facility] Last Admin: 05/06/17 06:04 Dose: 300 mg Heparin Sodium (Porcine) (Heparin -) 5,000 unit SQ BID [facility] Last Admin: 05/06/17 09:32 Dose: 5,000 unit Sodium Chloride (Normal Saline -) 1,000 mls @ 50 mls/hr IV ASDIR [facility] Last Admin: 05/05/17 21:54 Dose: 50 mls/hr Levetiracetam (Keppra -) 1,000 mg PO BID [facility] Last Admin: 05/06/17 09:32 Dose: 1,000 mg Magnesium Chloride (Slow-Mag -) 64 mg PO DAILY [facility] Last Admin: 05/06/17 09:32 Dose: 64 mg Ondansetron HCl (Zofran Injection) 8 mg IVPB Q6H PRN PRN Reason: NAUSEA AND/OR VOMITING Last Admin: 05/04/17 01:21 Dose: 8 mg Oxycodone HCl (Oxycontin -) 20 mg PO BID [facility] Last Admin: 05/06/17 09:32 Dose: 20 mg Pantoprazole Sodium (Protonix -) 40 mg PO BID [facility] Last Admin: 05/06/17 09:32 Dose: 40 mg Physical Exam-Neuro Vital Signs Temperature 98.1 F 05/06/17 05:50 Pulse Rate 91 H 05/06/17 05:50 Respiratory Rate 20 05/06/17 05:50 Blood Pressure 104/67 05/06/17 05:50 O2 Sat by Pulse Oximetry (%) 95 05/05/17 21:00 Awake, alert, communicative, facemask in place RRR, no murmur, rubs, or gallops Abd soft, NT CN intact Strenght intact Sensory normal Finger to nose intact Gait deferred Labs: CBCD WBC 7.2 K/mm3 (4.0-10.0) 05/06/17 06:00 RBC 3.31 M/mm3 (3.60-5.2) L 05/06/17 06:00 Hgb 9.7 GM/dL (10.7-15.3) L 05/06/17 06:00 Hct 29.0 % (32.4-45.2) L 05/06/17 06:00 MCV 87.5 fl (80-96) 05/06/17 06:00 MCHC 33.4 g/dl (32.0-36.0) 05/06/17 06:00 RDW 17.2 % (11.6-15.6) H 05/06/17 06:00 Plt Count 398 K/MM3 (134-434) 05/06/17 06:00 MPV 7.8 fl (7.5-11.1) 05/06/17 06:00 CMP Sodium 137 mmol/L (136-145) 05/06/17 06:00 Potassium 4.4 mmol/L (3.5-5.1) 05/06/17 06:00 Chloride 105 mmol/L (98-107) 05/06/17 06:00 Carbon Dioxide 26 mmol/L (21-32) 05/06/17 06:00 Anion Gap 6 (8-16) L 05/06/17 06:00 BUN 14 mg/dL (7-18) 05/06/17 06:00 Creatinine 0.5 mg/dL (0.55-1.02) L D 05/06/17 06:00 Creat Clearance w eGFR > 60 (>60) 05/02/17 06:00 Calcium 7.7 mg/dL (8.5-10.1) L 05/06/17 06:00 Total Bilirubin 0.3 mg/dL (0.2-1.0) D 05/02/17 06:00 AST 10 U/L (15-37) L 05/02/17 06:00 ALT 18 U/L (12-78) 05/02/17 06:00 Alkaline Phosphatase 41 U/L (45-117) L 05/02/17 06:00 Total Protein 5.0 g/dl (6.4-8.2) L 05/02/17 06:00 Albumin 1.9 g/dl (3.4-5.0) L 05/02/17 06:00 Imaging - Results Cat Scan: Report Reviewed, Image Reviewed Assessment/Plan 52 year old female was brought by EMS for AMS, and she was given narcan on the route. She has history of drug over dose in the past. She has one episode of seizures. Patient also have aspiration pneumonia and was intubated. She has not had any seizures since admission to hospital. She has been afebrile. Was contacted by nurse regarding Keppra which was started by Dr. woodard who had seen the patient earlier in hospitalization. Conversion of medication is 1:1, IV to PO. Same dose and frequency. Seizure free during hospitalization. Can have EEG outpatient.
[2017-05-06] MEDS ORDERED: MAGNESIUM SULF 50% (8.12 MEQ/2 ML-1 GM VIAL) IVPB ONE (11:00)
--- NOTE | 2017-05-06 13:19 | PN ---
Progress Note (short form) - Note Progress Note: PULMONARY Denies shortness of breath, cough or wheezing. No fevers or chills. Wants to go home. Last Vital Signs Temp Pulse Resp BP Pulse Ox 98.1 F 91 H 20 104/67 95 05/06/17 05:50 05/06/17 05:50 05/06/17 05:50 05/06/17 05:50 05/05/17 21:00 Gen: mildly tachypneic with speaking Heart: RRR Lung: distant breath sounds Abd: soft, nontender Ext: no edema CBC, BMP 05/06/17 06:00 05/06/17 06:00 Active Medications Acetaminophen (Tylenol -) 650 mg PO Q6H PRN PRN Reason: FEVER Al Hydroxide/Mg Hydroxide (Mylanta Oral Suspension -) 30 ml PO Q6HPO PRN PRN Reason: INDIGESTION Last Admin: 05/04/17 00:41 Dose: 30 ml Arformoterol Tartrate (Brovana (Restricted To Pulmonology/Resp) -) 1 amp NEB BID [facility] Last Admin: 05/06/17 09:28 Dose: 1 amp Gabapentin (Neurontin -) 300 mg PO TID [facility] Last Admin: 05/06/17 06:04 Dose: 300 mg Heparin Sodium (Porcine) (Heparin -) 5,000 unit SQ BID [facility] Last Admin: 05/06/17 09:32 Dose: 5,000 unit Sodium Chloride (Normal Saline -) 1,000 mls @ 50 mls/hr IV ASDIR [facility] Last Admin: 05/05/17 21:54 Dose: 50 mls/hr Levetiracetam (Keppra -) 1,000 mg PO BID [facility] Last Admin: 05/06/17 09:32 Dose: 1,000 mg Magnesium Chloride (Slow-Mag -) 128 mg PO DAILY [facility] Ondansetron HCl (Zofran Injection) 8 mg IVPB Q6H PRN PRN Reason: NAUSEA AND/OR VOMITING Last Admin: 05/04/17 01:21 Dose: 8 mg Oxycodone HCl (Oxycontin -) 20 mg PO BID [facility] Last Admin: 05/06/17 09:32 Dose: 20 mg Pantoprazole Sodium (Protonix -) 40 mg PO BID [facility] Last Admin: 05/06/17 09:32 Dose: 40 mg A/P Acute on Chronic Hypercapneic Respiratory Failure improving Seizure Episode Opiate Dependent Scleroderma/CREST syndrome Pneumothorax s/p chest tube placement/removal Pneumonia Anemia - complete antibiotics - antiepileptics - aspiration precautions - inhaled bronchodilators - O2 to keep SpO2 >88% - establish peripheral access and d/c central line - DVT prophylaxis
--- NOTE | 2017-05-06 13:21 | PN ---
Progress Note (short form) - Note Progress Note: Renal Follow up for PRASHANT/Hyponatremia Pt seen and examined at the bedside feels good, wants to go home no BM today, has 2 soft stools and one loose one yesterday no abd pain, N/V, SOB Vital Signs Temperature 98.1 F 05/06/17 05:50 Pulse Rate 91 H 05/06/17 05:50 Respiratory Rate 20 05/06/17 05:50 Blood Pressure 104/67 05/06/17 05:50 O2 Sat by Pulse Oximetry (%) 95 05/05/17 21:00 Intake & Output 05/03/17 05/04/17 05/05/17 05/06/17 23:59 23:59 23:59 23:59 Intake Total 1220 1220 1315 800 Output Total 800 Balance 8268 108 3806 800 Weight 92 lb 4 oz 95 lb 1.6 oz 90 lb Gen: NAD, awake and alert CVS: RRR, No M/R Lungs: CTA, no rales or wheeze Abd: soft NT/ND Ext: No edema, clubbing or cyanosis Neuro: AAOx3, no focal defects CBC, BMP 05/06/17 06:00 05/06/17 06:00 Laboratory Tests 05/06/17 06:00 Calcium 7.7 L Magnesium 1.6 L D Current Medications Acetaminophen (Tylenol -) 650 mg PO Q6H PRN PRN Reason: FEVER Al Hydroxide/Mg Hydroxide (Mylanta Oral Suspension -) 30 ml PO Q6HPO PRN PRN Reason: INDIGESTION Last Admin: 05/04/17 00:41 Dose: 30 ml Arformoterol Tartrate (Brovana (Restricted To Pulmonology/Resp) -) 1 amp NEB BID [facility] Last Admin: 05/06/17 09:28 Dose: 1 amp Gabapentin (Neurontin -) 300 mg PO TID [facility] Last Admin: 05/06/17 06:04 Dose: 300 mg Heparin Sodium (Porcine) (Heparin -) 5,000 unit SQ BID [facility] Last Admin: 05/06/17 09:32 Dose: 5,000 unit Sodium Chloride (Normal Saline -) 1,000 mls @ 50 mls/hr IV ASDIR [facility] Last Admin: 05/05/17 21:54 Dose: 50 mls/hr Levetiracetam (Keppra -) 1,000 mg PO BID [facility] Last Admin: 05/06/17 09:32 Dose: 1,000 mg Magnesium Chloride (Slow-Mag -) 128 mg PO DAILY [facility] Ondansetron HCl (Zofran Injection) 8 mg IVPB Q6H PRN PRN Reason: NAUSEA AND/OR VOMITING Last Admin: 05/04/17 01:21 Dose: 8 mg Oxycodone HCl (Oxycontin -) 20 mg PO BID [facility] Last Admin: 05/06/17 09:32 Dose: 20 mg Pantoprazole Sodium (Protonix -) 40 mg PO BID [facility] Last Admin: 05/06/17 09:32 Dose: 40 mg A/P 52 year old woman with PMhx of Scleroderma, CREST Syndrome, COPD, CHF, Narcotic dependence, Hypothyrodism who presented with AMS and Seizure and found to have PRASHANT, Hyponatremia, Hypokalemia and Pseduohypocalcemia. #Acute Kidney Injury renal function now stable #Hypophosphatemia WNL today Trend daily while inpatient oral intake as tolerated #Hypokalemia/Hypomagnesemia Increase Slo-mg to 128mg Daily #Seizures on presentation on Keppra no further seizure neurology follow up Thank you Srinivasan Tijerina DO
[2017-05-06 14:23] VITALS: PULSE 97
--- NOTE | 2017-05-06 15:40 | DS ---
Physical Examination Vital Signs: Vital Signs Temperature 98.8 F 05/06/17 10:00 Pulse Rate 97 H 05/06/17 10:00 Respiratory Rate 20 05/06/17 10:00 Blood Pressure 95/62 05/06/17 10:00 O2 Sat by Pulse Oximetry (%) 99 05/06/17 09:00 Findings/Remarks: pt OOB to chair, dressed, wants to go home, ate OK no vomiting; no pain or SOB; Has R subclavian line, to be removed by hospitalist; d/w pulm dr WHITE ok to be DC home after R subclav removal. pain meds per dr Brewster 20 mg oxycintin po bid prn, script donex 30 tabs; d/w pt do not take MS contin or old meds (80 mg oxycontin); pt needs f/u with pain mngt and detox for possible methadone use within 1 week of DC, she understood and is aware FLORENCIO / DUR checked # [id number] pt had O2 sat/RA checked in the past and she needed home O2 NC portable but she did not want it and she still does not want it; did O2 sat/RA here, over 90% on RA She said her tenant Carlos could pick her up today from [place] T time 60 minutes; d/w pt all the DC instructions, she understood all of them ; d/w staff Constitutional: Yes: No Distress Eyes: Yes: Conjunctiva Clear HENT: Yes: Atraumatic Neck: Yes: Supple Cardiovascular: Yes: Regular Rate and Rhythm Respiratory: Yes: CTA Bilaterally Gastrointestinal: Yes: Soft. No: Distention, Tenderness Renal/: No: CVA Tenderness - Left, CVA Tenderness - Right Musculoskeletal: No: Joint Stiffness, Joint Swelling Extremities: No: Cold, Cool Edema: No Peripheral Pulses WNL: Yes Integumentary: No: Rash, Venous Stasis Changes Neurological: Yes: Alert, Oriented ...Motor Strength: WNL Psychiatric: Yes: Alert, Oriented. No: Agitated, Suicidal Ideation Labs: CBC, BMP 05/06/17 06:00 05/06/17 06:00 Discharge Summary Reason For Visit: SEPSIS, RESP FAILURE Current Active Problems Altered mental status (Acute) Hypotension (Acute) Pneumothorax on right (Acute) Respiratory failure (Acute) S/P chest tube placement (Acute) Seizure (Acute) Sepsis associated hypotension (Acute) Procedures: Principal: respiratory distress, seizures, unresponsive, opiates OD ; ARF Other Procedures: narcan; intubated in ER; central line placed; R pneumothorax iatrogenic;. admitted to ICU; seen by pulm ICU, renal, CT surgery; neurology eval;. IV antibiotics; IVF; IV keppra;. pain meds per pain mngt; Hospital Course: improved with above; DC home and f/u DC instructions as advised and d/w pt in detail Condition: Improved - Instructions Diet, Activity, Other Instructions: f/u PCP, GI, neurology in 1-3 weeks f/u pulmonary and renal dr in 2-3 weeks check labs CBC CMP MG in 1-2 weeks pain mngt and detox outpt, consider switch to methadone with pain dr / detox outpt within 1-2 weeks from DC today, d/w pt RTER if worse or recurrent falls PFX take pain meds as advised, not more, d/w pt do not use any unprescribed meds or drugs, d/w pt Referrals: Eva Gonzalez [Staff Physician] - Allen Brewster MD [Staff Physician] - Sonny Leon MD [Staff Physician] - Ricky Story MD [Staff Physician] - Srinivasan Tijerina MD [Staff Physician] - Hai White MD, MD [Staff Physician] - Disposition: [facility]/HOME HEALTH CARE - Home Medications Comprehensive Discharge Medication List: Ambulatory Orders Albuterol 0.083% Nebulizer Cinthya [Ventolin 0.083% Nebulizer Soln -] 1 amp NEB Q4H PRN #1 amp 04/11/16 Aspirin [ASA -] 81 mg PO DAILY tab.chew 04/11/16 Budesonide/Formeterol Fumarate [SYMBICORT 80/4.5mcg -] 2 puff IH BID #1 inhaler 04/11/16 Ranitidine [Zantac -] 150 mg PO DAILY 05/27/16 Aclidinium Bailey [Tudorza -] 1 puff IH DAILY inhaler 07/20/16 Lactobacillus Acidophilus [Bacid -] 1 each PO DAILY #30 capsule 07/20/16 Metoclopramide HCl [Reglan -] 10 mg PO ACHS tablet 07/20/16 Acetaminophen [Tylenol .Regular Strength -] 650 mg PO Q6H PRN #0 tablet Hydroxychloroquine So4 [Plaquenil -] 200 mg PO BID tablet 07/31/16 Multivitamins [Multivit ([facility] Formul[facility])] 1 tab PO DAILY tab 12/17/16 Acetaminophen [Tylenol .Regular Strength -] 650 mg PO Q6H PRN #0 tablet Albuterol 0.083% Nebulizer Cinthya [Ventolin 0.083% Nebulizer Soln -] 1 amp NEB Q4H PRN #30 amp 05/06/17 Gabapentin [Neurontin -] 300 mg PO TID #90 cap 05/06/17 Levetiracetam [Keppra -] 1,000 mg PO BID #60 tablet 05/06/17 Lidocaine 5% Patch [Lidoderm -] 2 patch TP DAILY #60 patch 05/06/17 Mag Hydrox/Al Hydrox/Simeth [Mylanta Oral Suspension -] 30 ml PO Q6HPO PRN #0 vial 05/06/17 Magnesium Chloride [Slow-Mag -] 128 mg PO DAILY #30 tab MDD 1 05/06/17 Oxycodone Sr [Oxycontin] 20 mg PO BID PRN #30 tab MDD 2 05/06/17 Pantoprazole Sodium [Protonix -] 40 mg PO BID #60 tab 05/06/17 Potassium Chloride [K-Dur -] 20 meq PO DAILY #30 tab 05/06/17
[2017-05-06 15:44] VITALS: BP 96/62; TEMP 98.7
[2017-05-07] MEDS ORDERED: MAGNESIUM CL 64 MG TABLET.SA PO SCH (10:00)
== END 2017-05-06 18:51 | disposition home health service (06) | DRG 208 ==
LOC: JER 10:34 → JERBED 13:52 → JICU 16:18 → J7W 04-30 15:34
PROVIDERS: ADMIT Internal Medicine; ATTEND Internal Medicine
PROC: 05H533Z Insertion of Infusion Device into Right Subclavian Vein, Percutaneous Approach (ICD-10-PCS; principal; 2017-04-25)
PROC: 5A1945Z Respiratory Ventilation, 24-96 Consecutive Hours (ICD-10-PCS; 2017-04-25)
PROC: 0BH17EZ Insertion of Endotracheal Airway into Trachea, Via Natural or Artificial Opening (ICD-10-PCS; 2017-04-25)
PROC: 0W9930Z Drainage of Right Pleural Cavity with Drainage Device, Percutaneous Approach (ICD-10-PCS; 2017-04-25)
PROC: 0WH833Z Insertion of Infusion Device into Chest Wall, Percutaneous Approach (ICD-10-PCS; 2017-04-25)
PROC: 30233N1 Transfusion of Nonautologous Red Blood Cells into Peripheral Vein, Percutaneous Approach (ICD-10-PCS; 2017-04-28)
DX: J96.02 Acute respiratory failure with hypercapnia (principal); A41.89 Other specified sepsis; J69.0 Pneumonitis due to inhalation of food and vomit; R57.8 Other shock; J93.83 Other pneumothorax; F11.20 Opioid dependence, uncomplicated; E46 Unspecified protein-calorie malnutrition; Z68.1 Body mass index [BMI] 19.9 or less, adult; N17.9 Acute kidney failure, unspecified; E87.1 Hypo-osmolality and hyponatremia; R64 Cachexia; T40.0X Poisoning by, adverse effect of and underdosing of opium; E78.5 Hyperlipidemia, unspecified; J44.9 Chronic obstructive pulmonary disease, unspecified; M34.89 Other systemic sclerosis; K31.84 Gastroparesis; I73.00 Raynaud's syndrome without gangrene; M34.1 CR(E)ST syndrome; E03.9 Hypothyroidism, unspecified; Z88.0 Allergy status to penicillin; G62.89 Other specified polyneuropathies; I35.1 Nonrheumatic aortic (valve) insufficiency; Z89.112 Acquired absence of left hand; Z89.111 Acquired absence of right hand; K59.09 Other constipation; K57.90 Diverticulosis of intestine, part unspecified, without perforation or abscess without bleeding; K21.9 Gastro-esophageal reflux disease without esophagitis; K27.9 Peptic ulcer, site unspecified, unspecified as acute or chronic, without hemorrhage or perforation; K22.70 Barrett's esophagus without dysplasia; K22.2 Esophageal obstruction; K31.819 Angiodysplasia of stomach and duodenum without bleeding; D64.9 Anemia, unspecified; M54.5 Low back pain; I77.6 Arteritis, unspecified; T40.2X4A Poisoning by other opioids, undetermined, initial encounter; M81.8 Other osteoporosis without current pathological fracture; E87.6 Hypokalemia; E83.42 Hypomagnesemia; R56.9 Unspecified convulsions; I95.9 Hypotension, unspecified; Z87.891 Personal history of nicotine dependence; M71.58 Other bursitis, not elsewhere classified, other site; E83.51 Hypocalcemia; R00.1 Bradycardia, unspecified; R68.0 Hypothermia, not associated with low environmental temperature; I50.9 Heart failure, unspecified; Z91.81 History of falling
CPT/HCPCS: 36415; 36430; 36600; 70450-TC; 71010-TC; 71020-TC; 71250-TC; 72125-TC; 74000-TC; 74176-TC; 80048; 80053; 80307; 81003; 81015; 82375; 82436; 82570; 82803; 83050; 83605; 83735; 83930; 84100; 84132; 84133; 84300; 84439; 84443; 84481; 84484; 85025; 85027; 85610; 85730; 86850; 86900; 86901; 86922; 87040; 87070; 87086; 87186; 87205; 87389; 93005; 93010; 93306-TC; 94002; 94640; 94761; 97116-GP; 97161-GP; 99285-25; J1644; P9038; P9058

== ENCOUNTER 2017-08-12 17:12 | Inpatient (IN) | payer OTHER ==
--- NOTE | 2017-08-12 17:39 | PDOC ---
History of Present Illness - General Chief Complaint: Vomiting Blood Stated Complaint: HYPOTENSION Time Seen by Provider: 08/12/17 17:17 - History of Present Illness Initial Comments: 08/12/17 20:34 52yo woman with PMH of Scleroderma, CREST syndrome, COPD, CHF, narcotic dependence, hypothyroidism who presents with hypotension (70's/30's) and 1 episode of coffee ground emesis this morning. She presented to the ED two days ago s/p fall and found to have mild impact fracture of R humeral neck,and placed in a sling. This morning she had an episode of coffee ground emesis. Denies any bloody or black stools. 08/12/17 21:31 Past History - Past Medical History Allergies/Adverse Reactions: Allergies Allergy/AdvReac Type Severity Reaction Status Date / Time Penicillins Allergy Severe Hives Verified 08/10/17 13:23 tomato AdvReac Uncoded 08/10/17 13:23 Home Medications: Ambulatory Orders Albuterol 0.083% Nebulizer Cinthya [Ventolin 0.083% Nebulizer Soln -] 1 amp NEB Q4H PRN #1 amp 04/11/16 Aspirin [ASA -] 81 mg PO DAILY tab.chew 04/11/16 Budesonide/Formeterol Fumarate [SYMBICORT 80/4.5mcg -] 2 puff IH BID #1 inhaler 04/11/16 Ranitidine [Zantac -] 150 mg PO DAILY 05/27/16 Aclidinium [place] [Tudorza -] 1 puff IH DAILY inhaler 07/20/16 Lactobacillus Acidophilus [Bacid -] 1 each PO DAILY #30 capsule 07/20/16 Metoclopramide HCl [Reglan -] 10 mg PO ACHS tablet 07/20/16 Acetaminophen [Tylenol .Regular Strength -] 650 mg PO Q6H PRN #0 tablet Hydroxychloroquine So4 [Plaquenil -] 200 mg PO BID tablet 07/31/16 Multivitamins [Multivit ([facility] Formul[facility])] 1 tab PO DAILY tab 12/17/16 Acetaminophen [Tylenol .Regular Strength -] 650 mg PO Q6H PRN #0 tablet Albuterol 0.083% Nebulizer Cinthya [Ventolin 0.083% Nebulizer Soln -] 1 amp NEB Q4H PRN #30 amp 05/06/17 Gabapentin [Neurontin -] 300 mg PO TID #90 cap 05/06/17 Levetiracetam [Keppra -] 1,000 mg PO BID #60 tablet 05/06/17 Lidocaine 5% Patch [Lidoderm -] 2 patch TP DAILY #60 patch 05/06/17 Mag Hydrox/Al Hydrox/Simeth [Mylanta Oral Suspension -] 30 ml PO Q6HPO PRN #0 vial 05/06/17 Magnesium Chloride [Slow-Mag -] 128 mg PO DAILY #30 tab MDD 1 05/06/17 Oxycodone Sr [Oxycontin] 20 mg PO BID PRN #30 tab MDD 2 05/06/17 Pantoprazole Sodium [Protonix -] 40 mg PO BID #60 tab 05/06/17 Potassium Chloride [K-Dur -] 20 meq PO DAILY #30 tab 05/06/17 Anemia: Yes Asthma: Yes Cancer: No 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, 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) CVA: No COPD: Yes CHF: No Dementia: No Diabetes: No GI Disorders: Yes (REFLUX, Bonner's Esophagus) Disorders: No HTN: No (low bp) Hypercholesterolemia: Yes Liver Disease: No Seizures: No Thyroid Disease: Yes (HYPO.) - Surgical History Abdominal Surgery: Yes (Yes, Exp lapartomy) Appendectomy: Yes Cardiac Surgery: No Cholecystectomy: No Lung Surgery: No Neurologic Surgery: Yes (LS/RODS &BONE FUSIONS) Orthopedic Surgery: Yes (multiple back sx, hand sx,b/o hip) - Immunization History Immunization Up to Date: Yes - Suicide/Smoking/Psychosocial Hx Smoking Status: No Smoking History: Current every day smoker Have you smoked in the past 12 months: Yes Number of Cigarettes Smoked Daily: 20 If you are a former smoker, when did you quit?: 4 years ago Information on smoking cessation initiated: No 'Breaking Loose' booklet given: 04/25/17 Hx Alcohol Use: No Drug/Substance Use Hx: No Substance Use Type: Opiates Hx Substance Use Treatment: Yes *Physical Exam - Vital Signs Last Vital Signs Temp Pulse Resp BP Pulse Ox 97.5 F L 87 16 70/48 08/12/17 17:16 08/12/17 17:16 08/12/17 17:16 08/12/17 17:16 - Physical Exam General Appearance: Yes: Mild Distress, Cachetic HEENT: positive: Other (crusted blood on lower teeth, dry mucous membranes) Neck: positive: Supple Respiratory/Chest: positive: Rhonchi (bilateral) Cardiovascular: positive: Regular Rhythm, Regular Rate, S1, S2 Gastrointestinal/Abdominal: positive: Other (mildly distended, mild tenderness in epigastrum and LUQ, normoactive BS) Rectal Exam: positive: heme negative stool Musculoskeletal: positive: Other (R arm in sling s/p, limited ROM 2/2 slight impacted fracture of humeral neck) Extremity: positive: Other (both 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 Hypotension. Emesis. Comparison: 06/10/2017 chest x-ray. Findings: No evidence of airspace consolidation, pulmonary vascular congestion or pleural effusion. No definable pneumothorax. Chronic coarsening of the bronchovascular markings appear similar to the prior chest x-ray, likely attributed to emphysema. Pulmonary nodules described on 04/25/[address] are not well delineated on this chest x-ray. Normal size of the cardiomediastinal silhouette. There is calcific atherosclerosis along the aortic arch. Impression: 1. No evidence of airspace consolidation or pleural effusion. 2. Pulmonary nodules described on 04/25/[address] are not well delineated on this chest x-ray. Medical Decision Making - Medical Decision Making Patient is hypotensive and presents with coffee ground emesis 2/2 to suspected GIB. -Will obtain CBC, CMP, stool guaiac, T&S -1L IVFs -40mg IV protonix 08/12/17 20:36 Stool guaiac is negative. Hgb is 9.1 (last 10.7 2mo ago), which is reassuring that there likely is not a brisk bleed. She is hypotensive, but is responding to fluid resuscitation. Will continue IVF @ 125cc/hr and monitor VS q1h. Lab revealing for PRASHANT with a BUN/Cr of 106/3.3; baseline creatinine is ~0.4, which should also improve with hydration. 08/12/17 20:[address] Eva Gonzalez. Patient will be admitted to Med/Surg. Dr. Leon consulted for GI. *DC/Admit/Observation/Transfer Diagnosis at time of Disposition: GIB (gastrointestinal bleeding) - Discharge Dispostion Admit: Yes Decision to Admit order Date/Time: 08/12/17 20:[address] Eva Gonzalez. Pt will be admitted to M/S. - Referrals - Patient Instructions - Post Discharge Activity
[2017-08-12] MEDS ORDERED: SODIUM CHLORIDE 1,000 ML IV STA (17:50)
[2017-08-12 19:43] LABS: INR 1.35 (0.82-1.09); PROTHROMBIN TIME (PATIENT) 15.3 SEC (9.98-11.88)
[2017-08-12 19:47] LABS: BASOPHIL 0.1 % (0-2.0); MCH 25.5 pg (25.7-33.7); MEAN CELL VOLUME 79.7 fl (80-96); MEAN PLT VOLUME 7.6 fl (7.5-11.1); NEUTROPHILS 86.6 % (42.8-82.8); PLATELET COUNT 370 K/MM3 (134-434); RDW 17.4 % (11.6-15.6); WHITE BLOOD COUNT 12.6 K/mm3 (4.0-10.0)
[2017-08-12 19:52] LABS: ALBUMIN 2.5 g/dl (3.4-5.0); ALK PHOS 61 U/L (45-117); ANION GAP 18 (8-16); BILIRUBIN,TOTAL 0.6 mg/dL (0.2-1.0); CO2 23 mmol/L (21-32); CREATININE 3.3 mg/dL (0.55-1.02); GLUCOSE,RANDOM 83 mg/dL (74-106); SGOT/AST 13 U/L (15-37); SGPT/ALT 25 U/L (12-78); TOT PROT 6.9 g/dl (6.4-8.2)
[2017-08-12 19:53] LABS: CALCIUM 5.4 mg/dL (8.5-10.1)
[2017-08-12] MEDS ORDERED: PANTOPRAZOLE SODIUM 40 MG VIAL IVPUSH ONE (20:28)
[2017-08-12] MEDS ORDERED: PANTOPRAZOLE SODIUM 40 MG VIAL ONE (21:43)
[2017-08-12] MEDS: SODIUM CHLORIDE 1,000 ML IV SCH (22:16)
[2017-08-12] MEDS ORDERED: ALBUTEROL SO4 0.083% IH SOL 2.5 MG/3 ML VIAL.NEB. NEB PRN (22:31)
[2017-08-12] MEDS: PANTOPRAZOLE SODIUM 40 MG VIAL IVPB SCH (23:02)
[2017-08-13] MEDS: SODIUM CHLORIDE 1,000 ML IV SCH (00:35)
[2017-08-13] MEDS: GABAPENTIN 300 MG CAPSULE (FP) PO SCH ×3 (06:10→23:05)
[2017-08-13] MEDS: METOCLOPRAMIDE HCL 10 MG TABLET (FP) PO SCH ×4 (06:10→23:05)
[2017-08-13] MEDS: ACETAMINOPHEN 325 MG TABLET (FP) PO PRN ×2 (06:12→13:23)
[2017-08-13 07:41] LABS: ALBUMIN 2.1 g/dl (3.4-5.0); ANION GAP 12 (8-16); BILIRUBIN,TOTAL 0.5 mg/dL (0.2-1.0); CO2 25 mmol/L (21-32); CREATININE 1.7 mg/dL (0.55-1.02); GLUCOSE,RANDOM 70 mg/dL (74-106); SGOT/AST 14 U/L (15-37); SGPT/ALT 22 U/L (12-78); TOT PROT 5.7 g/dl (6.4-8.2)
[2017-08-13 07:42] LABS: ALK PHOS 52 U/L (45-117); BASOPHIL 0.1 % (0-2.0); EOSINOPHIL 0.3 % (0-4.5); MCH 25.8 pg (25.7-33.7); MCHC 32.8 g/dl (32.0-36.0); MEAN CELL VOLUME 78.6 fl (80-96); MEAN PLT VOLUME 7.4 fl (7.5-11.1); NEUTROPHILS 82.4 % (42.8-82.8); PLATELET COUNT 295 K/MM3 (134-434); RDW 17.5 % (11.6-15.6); WHITE BLOOD COUNT 8.5 K/mm3 (4.0-10.0)
--- NOTE | 2017-08-13 08:21 | HP ---
Admitting History and Physical - Primary Care Physician PCP: Eva Gonzalez S - Admission Chief Complaint: coffee grounds emesis, s/p fall History of Present Illness: 52 yo woman with PMH of Scleroderma, CREST syndrome, COPD, CHF, narcotic dependence, hypothyroidism who presents with hypotension (70's/30's) and 1 episode of coffee ground emesis this morning. She presented to the ED two days ago s/p fall in her girlfriend's house (tripped and fell) and found to have mild impact fracture of R humeral neck, placed in a sling and sent home. Last night said she fell in her mother's house (sec to general weakness) and hit her nose but not her head and no LOC. This morning she had one episode of coffee ground emesis. Denies any bloody or black stools. pt reports losing weight sec to gastroparesis, she is around 80 lbs now. She said she still was using large amounts of opiates b/o chronic LBP and now with RUE pain after the fall. 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 Normal coronaries on cardiac cath and EF 65% with mild AI, trace MR and TR on echo @ [facility] [place] 03/31) Pulmonary: Yes: Asthma, COPD, Pneumonia, Other (lung mass of undetermined etiology) Gastrointestinal: Yes: Constipation, Diverticulitis, Diverticulosis (small bowel diverticular perforation, scleroderma affecting the esophagus, Bonner's esophagus, Schatzki ring,, antral ulcer, gastroparesis related to scleroderma), GERD (with long segment Bonner's esophagus and patent Schatzki ring), Peptic Ulcer Disease (antral ulcer ), Other (Bonner's esophagus, GERD, Schatzki ring, perforation of small bowel diverticulum, antral ulcer, scleroderma causing esophageal dysmotility and gastroparesis, GERD with long segment Bonner's esophagus,Schatzki ring,GAVE syndrome) Renal/: Yes: Renal Failure Heme/Onc: Yes: Anemia Infectious Disease: Yes: MRSA (bursitis) Psych: Yes: Addictions (marijuana,tobacco and prescription narcotics) Musculoskeletal: Yes: Chronic low back pain, Other (has spinal stimulator) Rheumatology: Yes: Vasculitis, Other (Scleroderma, Raynauds and CREST syndrome) Endocrine: Yes: Hypothyroidism, Other (Malnutrition, osteoporosis) Dermatology: Yes: Cellulitis - Past Surgical History Past Surgical History: Yes: Appendectomy, Colonoscopy, Upper Endoscopy - Smoking History Smoking history: Current every day smoker Have you smoked in the past 12 months: Yes Aproximately how many cigarettes per day: 20 If you are a former smoker, when did you quit?: 4 years ago - Alcohol/Substance Use Hx Alcohol Use: No History of Substance Use: reports: Marijuana, Prescription - Social History Usual Living Arrangement: Yes: With Parent ADL: Independent Occupation: disabled History of Recent Travel: No Home Medications - Allergies Allergies/Adverse Reactions: Allergies Allergy/AdvReac Type Severity Reaction Status Date / Time Penicillins Allergy Severe Hives Verified 08/10/17 13:23 tomato AdvReac Uncoded 08/10/17 13:23 - Home Medications Home Medications: Ambulatory Orders Albuterol 0.083% Nebulizer Cinthya [Ventolin 0.083% Nebulizer Soln -] 1 amp NEB Q4H PRN #1 amp 04/11/16 Aspirin [ASA -] 81 mg PO DAILY tab.chew 04/11/16 Budesonide/Formeterol Fumarate [SYMBICORT 80/4.5mcg -] 2 puff IH BID #1 inhaler 04/11/16 Ranitidine [Zantac -] 150 mg PO DAILY 05/27/16 Aclidinium [place] [Tudorza -] 1 puff IH DAILY inhaler 07/20/16 Lactobacillus Acidophilus [Bacid -] 1 each PO DAILY #30 capsule 07/20/16 Metoclopramide HCl [Reglan -] 10 mg PO ACHS tablet 07/20/16 Acetaminophen [Tylenol .Regular Strength -] 650 mg PO Q6H PRN #0 tablet Hydroxychloroquine So4 [Plaquenil -] 200 mg PO BID tablet 07/31/16 Multivitamins [Multivit ([facility] Formulary)] 1 tab PO DAILY tab 12/17/16 Acetaminophen [Tylenol .Regular Strength -] 650 mg PO Q6H PRN #0 tablet Albuterol 0.083% Nebulizer Cinthya [Ventolin 0.083% Nebulizer Soln -] 1 amp NEB Q4H PRN #30 amp 05/06/17 Gabapentin [Neurontin -] 300 mg PO TID #90 cap 05/06/17 Levetiracetam [Keppra -] 1,000 mg PO BID #60 tablet 05/06/17 Lidocaine 5% Patch [Lidoderm -] 2 patch TP DAILY #60 patch 05/06/17 Mag Hydrox/Al Hydrox/Simeth [Mylanta Oral Suspension -] 30 ml PO Q6HPO PRN #0 vial 05/06/17 Magnesium Chloride [Slow-Mag -] 128 mg PO DAILY #30 tab MDD 1 05/06/17 Oxycodone Sr [Oxycontin] 20 mg PO BID PRN #30 tab MDD 2 05/06/17 Pantoprazole Sodium [Protonix -] 40 mg PO BID #60 tab 05/06/17 Potassium Chloride [K-Dur -] 20 meq PO DAILY #30 tab 05/06/17 Family Disease History - Family Disease History Family Disease History: Diabetes: Father (HCV), Heart Disease: Father, Mother, Other: Father, Brother (HIV) Review of Systems - Review of Systems Constitutional: reports: Lethargy, Loss of Appetite, Unintentional Wgt. Loss, Weakness (general). denies: Chills, Fever HENT: denies: Difficult Swallowing, Ear Pain, Epistaxis, Nasal Congestion Neck: denies: Stiffness, Tenderness Cardiovascular: denies: Chest Pain, Shortness of Breath Respiratory: denies: Cough, SOB Gastrointestinal: reports: Vomiting, Vomiting Blood. denies: Abdominal Pain, Bloating, Constipation, Diarrhea Genitourinary: denies: Burning, Flank Pain, Hematuria Musculoskeletal: reports: Back Pain (chronic), Extremity Pain (RUE) Integumentary: denies: Rash Neurological: reports: Dizziness, Unsteady Gait, Weakness (general). denies: Change in LOC, Change in Speech, Confusion, Seizure, Syncope Hematology/Lymphatic: denies: Easily Bruised, Excessive Bleeding Psychiatric: denies: Altered Sleep Pattern, Anxiety, Depression, Suicidal Physical Examination Vital Signs: Vital Signs Temperature 97.5 F L 08/13/17 05:43 Pulse Rate 78 08/13/17 05:43 Respiratory Rate 20 08/13/17 05:43 Blood Pressure 84/51 08/13/17 05:43 O2 Sat by Pulse Oximetry (%) 90 L 08/13/17 02:14 Constitutional: Yes: [place], Cachectic Eyes: Yes: Conjunctiva Clear HENT: No: Atraumatic, Epistaxis Neck: No: Lymphadenopathy, Tenderness, Thyromegaly Cardiovascular: Yes: Regular Rate and Rhythm Respiratory: Yes: CTA Bilaterally Gastrointestinal: Yes: Soft. No: Distention, Tenderness Renal/: No: CVA Tenderness - Left, CVA Tenderness - Right, Hematuria Musculoskeletal: No: Joint Stiffness, Joint Swelling Extremities: Yes: Other (s/p old fingers amputations from hands). No: Cold, Cool, Cyanosis Edema: No Integumentary: No: Rash, Venous Stasis Changes Neurological: Yes: WNL, Alert, Oriented ...Motor Strength: WNL Psychiatric: Yes: WNL, Alert, Oriented. No: Agitated, Suicidal Ideation Labs: CBC, BMP 08/13/17 06:00 Imaging - Results Chest X-ray: Report Reviewed Other: Report Reviewed Assessment/Plan 2yo woman with PMH of Scleroderma, CREST syndrome, COPD, CHF, narcotic dependence, hypothyroidism who presents with hypotension (70's/30's) and 1 episode of coffee ground emesis yesterday; s/p fall and mild impact fracture of R humeral neck, placed in a sling. found to be anemic, severely hypoNatremic and in ARF (sec to dehydration and possible nsaids use) admit to H avoid all Nsaids IVF transfuse PRBC IV PPI clear fluid diet GI and renal eval f/u labs falls PFX - d/w pt do not get OOB alone, call for help if needs OOB, pt understood and she said she will strongly advised stop all opiates but she requested some oxycontin sec to RUE fracture pain, she was seen in the past by pain dr Brewster and at thst time he ordered oxycontin 20 mg po bid; will order it for now; tylenol prn no sq heparin for DVT pfx b/o GI bleed prognosis guarded dw pt, H staff and pharmacy t time 75 min
[2017-08-13 08:29] LABS: CALCIUM 5.2 mg/dL (8.5-10.1)
[2017-08-13] MEDS ORDERED: RANITIDINE HCL 150 MG TABLET (FP) PO SCH (10:00)
[2017-08-13] MEDS ORDERED: LIDOCAINE 5% TOPICAL PATCH TP SCH (10:00)
[2017-08-13] MEDS ORDERED: ACLIDINIUM BROMIDE IH SCH (10:00)
[2017-08-13] MEDS: BUDESONIDE/FORMETEROL FUMARATE 80/4.5 mcg INHALER IH SCH ×2 (10:01→23:06)
[2017-08-13] MEDS: MULTIVITAMINS (DAILY MVI) TABLET (FP) PO SCH (10:01)
[2017-08-13] MEDS: PANTOPRAZOLE SODIUM 40 MG VIAL IVPB SCH (10:01)
--- NOTE | 2017-08-13 10:27 | EKG ---
Test Reason : Blood Pressure : / mmHG Vent. Rate : 086 BPM Atrial Rate : 086 BPM P-R Int : 148 ms QRS Dur : 072 ms QT Int : 430 ms P-R-T Axes : 075 065 060 degrees QTc Int : 514 ms NORMAL SINUS RHYTHM PROLONGED QT ABNORMAL ECG WHEN COMPARED WITH ECG OF 29-APR-2017 20:12, NONSPECIFIC T WAVE ABNORMALITY NO LONGER EVIDENT IN INFERIOR LEADS Confirmed by BRENNA CAVAZOS, BAILEY ([id number]) on 08/13/2017 10:27:45 AM Referred By: Confirmed By:BAILEY CEJA MD
[2017-08-13 12:18] VITALS: BMI 13.1
--- NOTE | 2017-08-13 12:18 | CON.NEP ---
Consult Consult Specialty:: Nephrology Referred by:: Dr. Gonzalez Reason for Consultation:: Acute Renal Failure - History of Present Illness Chief Complaint: Coffee Ground Emesis History of Present Illness: This is a 52 year old woman with PMhx of Scleroderma, CREST Syndrome, COPD, CHF , Narcotic dependence, Hypothyrodism who presented with Coffee Ground Emesis and BUN/Cr of 106/3.3. Pt s/p recent fall with Right Humerus fracture. Pt reports that she was taking Aleve for Pain (3-4 pills 2 days ago). Poor oral intake of food and water the last 24 hours. Pt with 2 episodes of coffee ground emesis at home. Denies any change in urine output or dark urine. no recent contrast exposure. Pt seen in the past several times for PRASHANT secondary to volume depletion. 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 Normal coronaries on cardiac cath and EF 65% with mild AI, trace MR and TR on echo @ [facility] [place]) Pulmonary: Yes: Asthma, COPD, Pneumonia, Other (lung mass of undetermined etiology) Gastrointestinal: Yes: Constipation, Diverticulitis, Diverticulosis (small bowel diverticular perforation, scleroderma affecting the esophagus, Bonner's esophagus, Schatzki ring,, antral ulcer, gastroparesis related to scleroderma), GERD (with long segment Bonner's esophagus and patent Schatzki ring), Peptic Ulcer Disease (antral ulcer ), Other (Bonner's esophagus, GERD, Schatzki ring, perforation of small bowel diverticulum, antral ulcer, scleroderma causing esophageal dysmotility and gastroparesis, GERD with long segment Bonner's esophagus,Schatzki ring,GAVE syndrome) Renal/: Yes: Renal Failure Infectious Disease: Yes: MRSA (bursitis) Psych: Yes: Addictions (marijuana,tobacco and prescription narcotics) Musculoskeletal: Yes: Chronic low back pain, Other (has spinal stimulator) Rheumatology: Yes: Vasculitis, Other (Scleroderma, Raynauds and CREST syndrome) Endocrine: Yes: Hypothyroidism, Other (Malnutrition, osteoporosis) Dermatology: Yes: Cellulitis - Past Surgical History Past Surgical History: Yes: Appendectomy, Colonoscopy, Upper Endoscopy - Alcohol/Substance Use Hx Alcohol Use: No History of Substance Use: reports: Marijuana, Prescription - Smoking History Smoking history: Current every day smoker Have you smoked in the past 12 months: Yes Aproximately how many cigarettes per day: 20 If you are a former smoker, when did you quit?: 4 years ago - Social History Usual Living Arrangement: With Parent ADL: Independent Occupation: disabled History of Recent Travel: No Home Medications - Allergies Allergies/Adverse Reactions: Allergies Allergy/AdvReac Type Severity Reaction Status Date / Time Penicillins Allergy Severe Hives Verified 08/10/17 13:23 tomato AdvReac Uncoded 08/10/17 13:23 - Home Medications Home Medications: Ambulatory Orders Albuterol 0.083% Nebulizer Cinthya [Ventolin 0.083% Nebulizer Soln -] 1 amp NEB Q4H PRN #1 amp 04/11/16 Aspirin [ASA -] 81 mg PO DAILY tab.chew 04/11/16 Budesonide/Formeterol Fumarate [SYMBICORT 80/4.5mcg -] 2 puff IH BID #1 inhaler 04/11/16 Ranitidine [Zantac -] 150 mg PO DAILY 05/27/16 Aclidinium [place] [Tudorza -] 1 puff IH DAILY inhaler 07/20/16 Lactobacillus Acidophilus [Bacid -] 1 each PO DAILY #30 capsule 07/20/16 Metoclopramide HCl [Reglan -] 10 mg PO ACHS tablet 07/20/16 Acetaminophen [Tylenol .Regular Strength -] 650 mg PO Q6H PRN #0 tablet Hydroxychloroquine So4 [Plaquenil -] 200 mg PO BID tablet 07/31/16 Multivitamins [Multivit ([facility] Formulary)] 1 tab PO DAILY tab 12/17/16 Acetaminophen [Tylenol .Regular Strength -] 650 mg PO Q6H PRN #0 tablet Albuterol 0.083% Nebulizer Cinthya [Ventolin 0.083% Nebulizer Soln -] 1 amp NEB Q4H PRN #30 amp 05/06/17 Gabapentin [Neurontin -] 300 mg PO TID #90 cap 05/06/17 Levetiracetam [Keppra -] 1,000 mg PO BID #60 tablet 05/06/17 Lidocaine 5% Patch [Lidoderm -] 2 patch TP DAILY #60 patch 05/06/17 Mag Hydrox/Al Hydrox/Simeth [Mylanta Oral Suspension -] 30 ml PO Q6HPO PRN #0 vial 05/06/17 Magnesium Chloride [Slow-Mag -] 128 mg PO DAILY #30 tab MDD 1 05/06/17 Oxycodone Sr [Oxycontin] 20 mg PO BID PRN #30 tab MDD 2 05/06/17 Pantoprazole Sodium [Protonix -] 40 mg PO BID #60 tab 05/06/17 Potassium Chloride [K-Dur -] 20 meq PO DAILY #30 tab 05/06/17 Family Disease History - Family Disease History Family Disease History: Diabetes: Father (HCV), Heart Disease: Father, Mother, Other: Father, Brother (HIV) Review of Systems - Review of Systems Constitutional: reports: Loss of Appetite. denies: Chills, Fever, Lethargy Eyes: reports: No Symptoms HENT: reports: No Symptoms Neck: reports: No Symptoms Cardiovascular: denies: Chest Pain, Edema, Palpitations, Shortness of Breath Respiratory: denies: Cough, Exercise Intolerance, Hemoptysis, Orthopnea, SOB Gastrointestinal: reports: Vomiting, Vomiting Blood. denies: Abdominal Pain, Bloating, Constipation, Diarrhea, Nausea Genitourinary: denies: Burning, Dysuria, Flank Pain, Hematuria Musculoskeletal: denies: Back Pain, Extremity Pain Neurological: denies: Change in LOC, Change in Speech Nephrology Consult - Height Height: 5 ft 4 in - Weight Weight: 34.791 kg - BMI Body Mass Index (BMI): 13.1 - Lab Results CBC,BMP: CBC, BMP 08/13/17 06:00 08/13/17 06:00 Anion Gap: Anion Gap Anion Gap 12 (8-16) 08/13/17 06:00 - Imaging Chest X-ray: Report Reviewed - Physical Examination Vital Signs: Vital Signs Temperature 97.4 F L 08/13/17 10:00 Pulse Rate 18 L 08/13/17 10:00 Respiratory Rate 20 08/13/17 10:00 Blood Pressure 88/58 08/13/17 10:00 O2 Sat by Pulse Oximetry (%) 90 L 08/13/17 02:14 Constitutional: Yes: No Distress, Calm, Cachectic HENT: Yes: Atraumatic Neck: Yes: Supple Cardiovascular: Yes: Regular Rate and Rhythm, S1, S2. No: Murmur, Rub Respiratory: Yes: Regular, CTA Bilaterally. No: On Nasal O2, Rales, Rhonchi, SOB Gastrointestinal: Yes: Normal Bowel Sounds, Soft. No: Tenderness Renal/: No: Bladder Distention Extremities: No: Cold, Cool, Cyanosis Edema: No Problem List - Problems (1) GIB (gastrointestinal bleeding) Code(s): K92.2 - GASTROINTESTINAL HEMORRHAGE, UNSPECIFIED (2) Acute renal failure Code(s): N17.9 - ACUTE KIDNEY FAILURE, UNSPECIFIED Qualifiers: Acute renal failure type: unspecified Qualified Code(s): N17.9 - Acute kidney failure, unspecified (3) CREST (calcinosis, Raynaud's phenomenon, esophageal dysfunction, sclerodactyly, telangiectasia) Code(s): M34.1 - CR(E)ST SYNDROME (4) Dehydration Code(s): E86.0 - DEHYDRATION Assessment/Plan 52 year old woman with PMhx of Scleroderma, CREST Syndrome, COPD, CHF, Narcotic dependence, Hypothyrodism who presented with Coffee Ground Emesis and BUN/Cr of 106/3.3. #Acute Renal Failure secondary to renal hypoprofusion in setting of hypovolemia + NSAID use Check urine for FeNa, UCPR no acute indication for Renal Us at this time as renal function already improving continue NS for now Keep MAP > 65 avoid further NSAID use Dose all meds for Cr Cl less then 30 #Coffee Ground Emesis/Anemia ? Gastritis/Ulcers from NSAID use ' GI consult trend CBC IV PPI transfuse as needed #Hypovolemic hyponatremia improving with isotonic saline Trend for now #Hypocalcemia Corrected Ca is 6.72 Give Calcium Gluconate IV x 1 start Calcium gtt Repeat BMP can stop calcium gtt once level > 7.5 Thank you Will follow Srinivasan Tijerina DO
[2017-08-13] MEDS ORDERED: CALCIUM GLUCONATE 10% - 1,000 MG/10 ML VIAL IVPB ONE (12:25)
[2017-08-13] MEDS ORDERED: WATER IVPB SCH (12:30)
[2017-08-13] MEDS ORDERED: CALCIUM GLUCONATE IVPB SCH (12:30)
[2017-08-13] MEDS ORDERED: DEXTROSE IVPB SCH (12:30)
[2017-08-13] MEDS: CALCIUM CARBONATE 650 MG TABLET PO SCH ×2 (13:22→23:04)
[2017-08-13] MEDS ORDERED: oxyCODONE HCL 20 MG SUSTAINED ACTING TABLET PO SCH (13:24)
[2017-08-13] MEDS: DEXTROSE 5%-WATER - 1,000 ML with CALCIUM GLUCONATE 10% - 11,000 MG IV SCH (13:24)
--- NOTE | 2017-08-13 17:34 | CON.GI ---
Consult Consult Specialty:: Gastroenterology Referred by:: Dr Gonzalez Reason for Consultation:: Anemia, Hematemesis - History of Present Illness Chief Complaint: Fell and broke my right arm and nose History of Present Illness: 52F with scleroderma/CRWT syndrome fell and broke her right arm and nose 3 days ago. Had epistaxis on and off since then. Today she apparently had coffee ground emesis ( which she denies). No recurrent vomiting. Denies rectal bleeding and claims to be moving her bowels well. EGD on revealed GERD with laryngeal reflux and long segment Escoto's metaplasia but no dysplasia. 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 Colonoscopy also on 06/15/15 revealed mild diverticulosis. 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 Normal coronaries on cardiac cath and EF 65% with mild AI, trace MR and TR on echo @ [facility] 03/31) Pulmonary: Yes: Asthma, COPD, Pneumonia, Other (lung mass of undetermined etiology) Gastrointestinal: Yes: Constipation, Diverticulitis, Diverticulosis (small bowel diverticular perforation, scleroderma affecting the esophagus, Escoto's esophagus, Schatzki ring,, antral ulcer, gastroparesis related to scleroderma), GERD (with long segment Escoto's esophagus and patent Schatzki ring), Peptic Ulcer Disease (antral ulcer ), Other (long segment Escoto's esophagus, GERD, Schatzki ring, perforation of small bowel diverticulum, antral ulcer, scleroderma causing pseudoobstruction,esophageal dysmotility and gastroparesis, GERD with long segment Escoto's esophagus,Schatzki ring) Renal/: Yes: Renal Failure Reproductive: Yes: Endometriosis Heme/Onc: Yes: Anemia Infectious Disease: Yes: MRSA (bursitis) Psych: Yes: Addictions (marijuana,tobacco and prescription narcotics) Musculoskeletal: Yes: Chronic low back pain, Other (has spinal stimulator) Rheumatology: Yes: Vasculitis, Other (Scleroderma, Raynauds and CREST syndrome) Endocrine: Yes: Hypothyroidism, Osteopenia (Osteoporosis), Other (Malnutrition, osteoporosis) Dermatology: Yes: Cellulitis Additional Medical History: Scleroderma with Raynauds phenomena , CREST Syndrome dx'ed Dr Correa [facility]. Cradiac cath 03/31 with normal coronaries - Past Surgical History Past Surgical History: Yes: Amputation (bilateral hand surgery with distal digit amputations bilaterally for Raynaud's acral necrosis), Appendectomy, Colonoscopy, Laminectomy (lumbar spine fusions with rods for traumatic fracture) , Upper Endoscopy Additional Surgical History: Exploratory laparotomy for pneumoperitoneum without significant findings. Bilateral hip and right elbow bursectomies. spinal stimulator inserted and removed - Alcohol/Substance Use Hx Alcohol Use: No History of Substance Use: reports: Marijuana, Prescription - Smoking History Smoking history: Current every day smoker Have you smoked in the past 12 months: Yes Aproximately how many cigarettes per day: 20 If you are a former smoker, when did you quit?: 4 years ago - Social History Usual Living Arrangement: With Parent ADL: Independent Occupation: disabled History of Recent Travel: No Home Medications - Allergies Allergies/Adverse Reactions: Allergies Allergy/AdvReac Type Severity Reaction Status Date / Time Penicillins Allergy Severe Hives Verified 08/10/17 13:23 tomato AdvReac Uncoded 08/10/17 13:23 - Home Medications Home Medications: Ambulatory Orders Albuterol 0.083% Nebulizer Cinthya [Ventolin 0.083% Nebulizer Soln -] 1 amp NEB Q4H PRN #1 amp 04/11/16 Aspirin [ASA -] 81 mg PO DAILY tab.chew 04/11/16 Budesonide/Formeterol Fumarate [SYMBICORT 80/4.5mcg -] 2 puff IH BID #1 inhaler 04/11/16 Ranitidine [Zantac -] 150 mg PO DAILY 05/27/16 Aclidinium Nora [Tudorza -] 1 puff IH DAILY inhaler 07/20/16 Lactobacillus Acidophilus [Bacid -] 1 each PO DAILY #30 capsule 07/20/16 Metoclopramide HCl [Reglan -] 10 mg PO ACHS tablet 07/20/16 Acetaminophen [Tylenol .Regular Strength -] 650 mg PO Q6H PRN #0 tablet Hydroxychloroquine So4 [Plaquenil -] 200 mg PO BID tablet 07/31/16 Multivitamins [Multivit ([facility] Formulary)] 1 tab PO DAILY tab 12/17/16 Acetaminophen [Tylenol .Regular Strength -] 650 mg PO Q6H PRN #0 tablet Albuterol 0.083% Nebulizer Cinthya [Ventolin 0.083% Nebulizer Soln -] 1 amp NEB Q4H PRN #30 amp 05/06/17 Gabapentin [Neurontin -] 300 mg PO TID #90 cap 05/06/17 Levetiracetam [Keppra -] 1,000 mg PO BID #60 tablet 05/06/17 Lidocaine 5% Patch [Lidoderm -] 2 patch TP DAILY #60 patch 05/06/17 Mag Hydrox/Al Hydrox/Simeth [Mylanta Oral Suspension -] 30 ml PO Q6HPO PRN #0 vial 05/06/17 Magnesium Chloride [Slow-Mag -] 128 mg PO DAILY #30 tab MDD 1 05/06/17 Oxycodone Sr [Oxycontin] 20 mg PO BID PRN #30 tab MDD 2 05/06/17 Pantoprazole Sodium [Protonix -] 40 mg PO BID #60 tab 05/06/17 Potassium Chloride [K-Dur -] 20 meq PO DAILY #30 tab 05/06/17 Family Disease History - Family Disease History Family Disease History: Diabetes: Father (HCV,OMS), Heart Disease: Father, Mother, Other: Father, Brother (HIV) Review of Systems - Review of Systems Constitutional: reports: Lethargy, Malaise, Unintentional Wgt. Loss, Weakness Eyes: reports: Double Vision HENT: reports: Difficult Swallowing, Epistaxis, Gingival Bleeding Neck: reports: Pain on Movement, Stiffness Cardiovascular: reports: Palpitations Respiratory: reports: Exercise Intolerance Gastrointestinal: reports: Vomiting Blood Physical Exam-GI Vital Signs: Vital Signs Temperature 97.3 F L 08/13/17 14:38 Pulse Rate 18 L 08/13/17 10:00 Respiratory Rate 20 08/13/17 10:00 Blood Pressure 88/58 08/13/17 10:00 O2 Sat by Pulse Oximetry (%) 90 L 08/13/17 02:14 CBC,CMP WBC 8.5 K/mm3 (4.0-10.0) D 08/13/17 06:00 RBC 3.05 M/mm3 (3.60-5.2) L 08/13/17 06:00 Hgb 7.9 GM/dL (10.7-15.3) L D 08/13/17 06:00 Hct 24.0 % (32.4-45.2) L D 08/13/17 06:00 MCV 78.6 fl (80-96) L 08/13/17 06:00 MCH 25.8 pg (25.7-33.7) 08/13/17 06:00 MCHC 32.8 g/dl (32.0-36.0) 08/13/17 06:00 RDW 17.5 % (11.6-15.6) H 08/13/17 06:00 Plt Count 295 K/MM3 (134-434) D 08/13/17 06:00 MPV 7.4 fl (7.5-11.1) L 08/13/17 06:00 Neutrophils % 82.4 % (42.8-82.8) 08/13/17 06:00 Lymphocytes % 11.5 % (8-40) D 08/13/17 06:00 Monocytes % 5.7 % (3.8-10.2) 08/13/17 06:00 Eosinophils % 0.3 % (0-4.5) D 08/13/17 06:00 Basophils % 0.1 % (0-2.0) 08/13/17 06:00 Retic Count 1.36 % (0.5-1.5) D 08/12/17 18:40 Sodium 133 mmol/L (136-145) L 08/13/17 06:00 Potassium 4.0 mmol/L (3.5-5.1) 08/13/17 06:00 Chloride 96 mmol/L (98-107) L D 08/13/17 06:00 Carbon Dioxide 25 mmol/L (21-32) 08/13/17 06:00 Anion Gap 12 (8-16) 08/13/17 06:00 BUN 84 mg/dL (7-18) H D 08/13/17 06:00 Creatinine 1.7 mg/dL (0.55-1.02) H D 08/13/17 06:00 Creat Clearance w eGFR 31.44 (>60) 08/13/17 06:00 Random Glucose 70 mg/dL (74-106) L 08/13/17 06:00 Calcium 5.2 mg/dL (8.5-10.1) L* 08/13/17 06:00 Total Bilirubin 0.5 mg/dL (0.2-1.0) 08/13/17 06:00 AST 14 U/L (15-37) L 08/13/17 06:00 ALT 22 U/L (12-78) 08/13/17 06:00 Alkaline Phosphatase 52 U/L (45-117) 08/13/17 06:00 Total Protein 5.7 g/dl (6.4-8.2) L 08/13/17 06:00 Albumin 2.1 g/dl (3.4-5.0) L 08/13/17 06:00 Current Medications Generic Name Dose Route Start Last Admin Trade Name Freq PRN Reason Stop Dose Admin Acetaminophen 650 mg 08/12/17 22:31 08/13/17 13:23 Tylenol - PO 650 mg Q6H PRN Administration FEVER OR PAIN Albuterol Sulfate 1 amp 08/12/17 22:31 Ventolin 0.083% Nebulizer Soln - NEB Q4H PRN SHORT OF BREATH/WHEEZING Budesonide/Formoterol Fumarate 2 puff 08/13/17 10:00 08/13/17 10:01 Symbicort 80/4.5mcg - IH 2 puff BID RAISSA Administration Calcium Carbonate 650 mg 08/13/17 12:30 08/13/17 13:22 Calcium Carbonate - PO 650 mg BID RAISSA Administration Gabapentin 300 mg 08/13/17 06:00 08/13/17 14:26 Neurontin - PO 300 mg TID RAISSA Administration Sodium Chloride 1,000 mls @ 125 mls/hr 08/12/17 20:45 08/12/17 22:16 Normal Saline - IV 08/15/17 04:44 125 mls/hr ASDIR RAISSA Administration Sodium Chloride 1,000 mls @ 100 mls/hr 08/12/17 22:45 08/13/17 00:35 Normal Saline - IV 100 mls/hr ASDIR RAISSA Administration Calcium Gluconate 11,000 mg/ 1,110 mls @ 50 mls/hr 08/13/17 12:45 08/13/17 13 :24 Dextrose IV 50 mls/hr Q20H RAISSA Administration Levetiracetam 1,000 mg 08/13/17 10:00 Keppra - PO BID RAISSA Lidocaine 2 patch 08/13/17 10:00 Lidoderm Patch - TP DAILY RAISSA Metoclopramide HCl 10 mg 08/13/17 07:00 08/13/17 16:25 Reglan - PO 10 mg ACHS RAISSA Administration Multivitamins/Minerals/Vitamin C 1 tab 08/13/17 10:00 08/13/17 10:01 Tab-A-Vit - PO 1 tab DAILY RAISSA Administration Non-Formulary Medication 1 puff 08/13/17 10:00 Aclidinium Nora [Tudorza -] IH DAILY RAISSA Oxycodone HCl 20 mg 08/13/17 14:20 Oxycontin - PO BID RAISSA Pantoprazole Sodium 40 mg 08/12/17 22:45 08/13/17 10:01 Protonix Iv IVPB 40 mg DAILY RAISSA Administration Ranitidine HCl 150 mg 08/13/17 10:00 08/13/17 10:01 Zantac - PO 150 mg DAILY RAISSA Administration Constitutional: Yes: Cachectic, Pallor Eyes: Yes: Conjunctiva Clear HENT: Yes: Atraumatic Neck: Yes: Supple Cardiovascular: Yes: Regular Rate and Rhythm Respiratory: Yes: CTA Bilaterally Gastrointestinal Inspection: Yes: Scars (healed vertical midline and RLQ incisions) ...Auscultate: Yes: Normoactive Bowel Sounds ...Palpate: Yes: Soft, Other (nontender) ...Rectal Exam: Yes: Deferred (patient declines) Extremities: Yes: Amputation (multiple distal digit amputations and sausage shaped digits bilaterally of hands) Edema: No Labs: CBC, BMP 08/13/17 06:00 08/13/17 06:00 INR, PTT INR 1.35 (0.82-1.09) H 08/12/17 18:40 Laboratory Tests 08/12/17 08/12/17 08/13/17 18:40 18:40 06:00 WBC 12.6 H D 8.5 D Hgb 9.1 L D 7.9 L D Hct 28.5 L 24.0 L D Plt Count 370 295 D BUN Creatinine Calcium 5.4 L* D Total Bilirubin 0.6 D AST ALT Alkaline Phosphatase Albumin 08/13/17 06:00 WBC Hgb Hct Plt Count BUN 84 H D Creatinine 1.7 H D Calcium 5.2 L* Total Bilirubin 0.5 AST 14 L ALT 22 Alkaline Phosphatase 52 Albumin 2.1 L Problem List - Problems (1) GIB (gastrointestinal bleeding) Assessment/Plan: Suspect that he drop in Hct and azotemia reflect bleeding from regurgitated epistaxis blood or UGI bleeding from erosive gastritis, ulcer, GERD or vascular ectasias. I have discussed a repeat EGD but Petra does not feel that she could tolerate one and requests conservative measures. Will empirically give PPI drip. Agree with need for transfusions. 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 Assessment/Plan: Will be due for surveillance biopsies in 04/02 Code(s): K22.70 - ESCOTO'S ESOPHAGUS WITHOUT DYSPLASIA (4) Coffee ground vomiting Code(s): K92.0 - HEMATEMESIS (5) Diverticulosis of both small and large intestine Code(s): K57.50 - DVRTCLOS OF BOTH SM AND LG INT W/O PERF OR ABSCS W/O BLEED (6) GERD (gastroesophageal reflux disease) Code(s): K21.9 - GASTRO-ESOPHAGEAL REFLUX DISEASE WITHOUT ESOPHAGITIS (7) Gastroparesis Assessment/Plan: Continue Reglan Code(s): K31.84 - GASTROPARESIS (8) Malnutrition Assessment/Plan: Will add dietary supplements Code(s): E46 - UNSPECIFIED PROTEIN-CALORIE MALNUTRITION Qualifiers: Malnutrition type: protein-calorie malnutrition (9) Opiate dependence Code(s): F11.20 - OPIOID DEPENDENCE, UNCOMPLICATED (10) Pseudo-obstruction of intestine Assessment/Plan: Continue miralax to prevent fecal impaction Code(s): K59.8 - OTHER SPECIFIED FUNCTIONAL INTESTINAL DISORDERS (11) Scleroderma progressive Code(s): M34.0 - PROGRESSIVE SYSTEMIC SCLEROSIS (12) Vomiting Assessment/Plan: see above Code(s): R11.10 - VOMITING, UNSPECIFIED Qualifiers: Vomiting type: hematemesis
[2017-08-13] MEDS: PANTOPRAZOLE SODIUM 80 MG in SODIUM CHLORIDE 100 ML IVPB SCH (21:45)
[2017-08-13] MEDS: levETIRAcetam 500 MG TABLET (FP) PO SCH (23:04)
[2017-08-13] MEDS: oxyCODONE HCL 10 MG SUSTAINED ACTING TABLET PO SCH (23:06)
[2017-08-14] MEDS: PANTOPRAZOLE SODIUM 80 MG in SODIUM CHLORIDE 100 ML IVPB SCH (05:19)
[2017-08-14] MEDS: ACETAMINOPHEN 325 MG TABLET (FP) PO PRN (06:13)
[2017-08-14] MEDS: GABAPENTIN 300 MG CAPSULE (FP) PO SCH ×3 (06:13→21:53)
[2017-08-14] MEDS: METOCLOPRAMIDE HCL 10 MG TABLET (FP) PO SCH ×3 (06:13→21:54)
[2017-08-14] MEDS: SODIUM CHLORIDE 1,000 ML IV SCH ×2 (07:47→07:48)
[2017-08-14 07:52] LABS: BASOPHIL 0.2 % (0-2.0); EOSINOPHIL 0.5 % (0-4.5); MCH 25.9 pg (25.7-33.7); MCHC 32.2 g/dl (32.0-36.0); MEAN CELL VOLUME 80.3 fl (80-96); MEAN PLT VOLUME 7.4 fl (7.5-11.1); NEUTROPHILS 83.4 % (42.8-82.8); PLATELET COUNT 299 K/MM3 (134-434); RDW 15.9 % (11.6-15.6); WHITE BLOOD COUNT 6.4 K/mm3 (4.0-10.0)
[2017-08-14 08:41] LABS: ALBUMIN 2.1 g/dl (3.4-5.0); ANION GAP 10 (8-16); CO2 24 mmol/L (21-32); CREATININE 0.7 mg/dL (0.55-1.02); GLUCOSE,RANDOM 66 mg/dL (74-106); PHOSPHOROUS 1.7 mg/dL (2.5-4.9); SGOT/AST 16 U/L (15-37); SGPT/ALT 25 U/L (12-78)
[2017-08-14 08:45] LABS: ALK PHOS 55 U/L (45-117); BILIRUBIN,TOTAL 0.6 mg/dL (0.2-1.0); FERRITIN 40.871 ng/ml (6.9-282.5); TOT PROT 6.1 g/dl (6.4-8.2)
[2017-08-14 09:17] LABS: CALCIUM 6.6 mg/dL (8.5-10.1)
[2017-08-14] MEDS: oxyCODONE HCL 10 MG SUSTAINED ACTING TABLET PO SCH ×2 (09:30→21:55)
[2017-08-14] MEDS: MULTIVITAMINS (DAILY MVI) TABLET (FP) PO SCH (09:30)
[2017-08-14] MEDS: levETIRAcetam 500 MG TABLET (FP) PO SCH ×2 (09:30→21:53)
[2017-08-14] MEDS: CALCIUM CARBONATE 650 MG TABLET PO SCH ×2 (09:30→21:55)
[2017-08-14] MEDS: BUDESONIDE/FORMETEROL FUMARATE 80/4.5 mcg INHALER IH SCH ×2 (09:31→21:53)
[2017-08-14] MEDS: LIDOCAINE 5% TOPICAL PATCH TP SCH (09:31)
[2017-08-14] MEDS: TIOTROPIUM BROMIDE 18 MCG/INH (DEVICE W/ 5 CAPSULES) IH SCH (10:00)
[2017-08-14] MEDS ORDERED: PICC LINE 8 ML FLUSH PROTOCOL IVPUSH PRN (10:37)
[2017-08-14] MEDS ORDERED: POTASSIUM CHLORIDE TABS 20 MEQ TABLET.ER (FP) PO ONE (11:00)
--- NOTE | 2017-08-14 11:11 | PN ---
GI Progress Note Subjective: GI NOte: No further vomiting. Tolerated breakfast. No melena. Hb 11. - Objective Vital Signs: Vital Signs Temperature 98.1 F 08/14/17 08:53 Pulse Rate 88 08/14/17 08:53 Respiratory Rate 22 08/14/17 08:53 Blood Pressure 90/58 08/14/17 08:53 O2 Sat by Pulse Oximetry (%) 91 L 08/13/17 21:00 Laboratory Tests 08/12/17 08/13/17 08/14/17 18:40 06:00 06:00 Hgb 9.1 L D 7.9 L D 11.0 D Constitutional: Calm ...Auscultate: Yes: Hypoactive Bowel Sounds ...Palpate: Yes: Soft, Other (nontender) Labs: CBC, BMP 08/14/17 06:00 08/14/17 06:00 INR, PTT INR 1.35 (0.82-1.09) H 08/12/17 18:40 Problem List - Problems (1) GIB (gastrointestinal bleeding) Assessment/Plan: Bleeding appears to have subsided. Will stop PPI drip. 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 Code(s): K22.70 - ESCOTO'S ESOPHAGUS WITHOUT DYSPLASIA (4) Coffee ground vomiting Code(s): K92.0 - HEMATEMESIS (5) Diverticulosis of both small and large intestine Code(s): K57.50 - DVRTCLOS OF BOTH SM AND LG INT W/O PERF OR ABSCS W/O BLEED (6) GERD (gastroesophageal reflux disease) Code(s): K21.9 - GASTRO-ESOPHAGEAL REFLUX DISEASE WITHOUT ESOPHAGITIS (7) Gastroparesis Assessment/Plan: Continue Reglan Code(s): K31.84 - GASTROPARESIS (8) Malnutrition Code(s): E46 - UNSPECIFIED PROTEIN-CALORIE MALNUTRITION Qualifiers: Malnutrition type: protein-calorie malnutrition (9) Opiate dependence Code(s): F11.20 - OPIOID DEPENDENCE, UNCOMPLICATED (10) Pseudo-obstruction of intestine Code(s): K59.8 - OTHER SPECIFIED FUNCTIONAL INTESTINAL DISORDERS (11) Scleroderma progressive Code(s): M34.0 - PROGRESSIVE SYSTEMIC SCLEROSIS (12) Vomiting Code(s): R11.10 - VOMITING, UNSPECIFIED Qualifiers: Vomiting type: hematemesis
[2017-08-14] MEDS: NAPH,MB-DB/K PH,MBDB POWDER PACKET PO SCH ×3 (11:30→21:54)
[2017-08-14] MEDS: DEXTROSE 5%-WATER - 1,000 ML with CALCIUM GLUCONATE 10% - 11,000 MG IV SCH (11:31)
--- NOTE | 2017-08-14 11:54 | PN ---
Progress Note, Physician Chief Complaint: weak, tired; arousable pain in her RUE and chronic back pain no N/V/CP - Current Medication List Current Medications: Active Medications Acetaminophen (Tylenol -) 650 mg PO Q6H PRN PRN Reason: FEVER OR PAIN Last Admin: 08/14/17 06:13 Dose: 650 mg Albuterol Sulfate (Ventolin 0.083% Nebulizer Soln -) 1 amp NEB Q4H PRN PRN Reason: SHORT OF BREATH/WHEEZING Budesonide/Formoterol Fumarate (Symbicort 80/4.5mcg -) 2 puff IH BID [facility] Last Admin: 08/14/17 09:31 Dose: 2 puff Calcium Carbonate (Calcium Carbonate -) 650 mg PO BID [facility] Last Admin: 08/14/17 09:30 Dose: 650 mg Gabapentin (Neurontin -) 300 mg PO TID [facility] Last Admin: 08/14/17 06:13 Dose: 300 mg IV Flush (Picc Line Flush) 8 ml IVPUSH PRN PRN PRN Reason: Protocol Levetiracetam (Keppra -) 500 mg PO BID [facility] Last Admin: 08/14/17 09:30 Dose: 500 mg Lidocaine (Lidoderm Patch -) 2 patch TP DAILY [facility] Last Admin: 08/14/17 09:31 Dose: 2 patch Metoclopramide HCl (Reglan -) 10 mg PO TID [facility] Last Admin: 08/14/17 06:13 Dose: 10 mg Multivitamins/Minerals/Vitamin C (Tab-A-Vit -) 1 tab PO DAILY [facility] Last Admin: 08/14/17 09:30 Dose: 1 tab Oxycodone HCl (Oxycontin -) 20 mg PO BID [facility] Last Admin: 08/14/17 09:30 Dose: 20 mg Pantoprazole Sodium (Protonix -) 40 mg PO BID [facility] Potassium Phos/Sodium Phos (Phos-Nak Packet -) 1 packet PO TID [facility] Stop: 08/15/17 22:01 Last Admin: 08/14/17 11:30 Dose: 1 packet Tiotropium [place] (Spiriva -) 1 puff IH DAILY [facility] - Objective Vital Signs: Vital Signs Temperature 98.1 F 08/14/17 08:53 Pulse Rate 88 08/14/17 08:53 Respiratory Rate 22 08/14/17 08:53 Blood Pressure 90/58 08/14/17 08:53 O2 Sat by Pulse Oximetry (%) 91 L 08/13/17 21:00 Constitutional: Yes: No Distress Eyes: Yes: Conjunctiva Clear HENT: Yes: Atraumatic Neck: Yes: Supple Cardiovascular: Yes: Regular Rate and Rhythm Respiratory: Yes: CTA Bilaterally Gastrointestinal: Yes: Soft. No: Distention Genitourinary: No: CVA Tenderness - Left, CVA Tenderness - Right, Hematuria Musculoskeletal: No: Joint Stiffness, Joint Swelling Extremities: No: Cold, Cool Edema: No Integumentary: No: Rash, Venous Stasis Changes Neurological: Yes: Alert, Oriented ...Motor Strength: WNL Psychiatric: Yes: Alert, Oriented. No: Agitated, Suicidal Ideation Labs: CBC, BMP 08/14/17 06:00 08/14/17 06:00 INR, PTT INR 1.35 (0.82-1.09) H 08/12/17 18:40 - ....Imaging Other: Report Reviewed Assessment/Plan 52yo woman with PMH of Scleroderma, CREST syndrome, COPD, CHF, narcotic dependence, hypothyroidism admitted with hypotension (70's/30's) and 1 episode of coffee ground emesis; s/p fall and mild impact fracture of R humeral neck few days ago, placed in a sling. found to be anemic, severely hypoNatremic and in ARF (sec to dehydration and possible nsaids use) admitted to H avoid all Nsaids IVF s/p transfusion PRBC IV PPI clear fluid diet GI and renal eval f/u labs falls PFX - d/w pt do not get OOB alone, call for help if needs OOB, pt understood and she said she will strongly advised stop opiates pt requested some oxycontin sec to RUE fracture pain, she was seen in the past by pain dr Brewster and at thst time he ordered oxycontin 20 mg po bid; will order it for now; tylenol prn no sq heparin for DVT pfx b/o GI bleed prognosis guarded dw pt and staff t time 40 min
[2017-08-14 12:17] LABS: C-REACTIVE PROTEIN 4.4 MG/DL (0.00-0.3)
--- NOTE | 2017-08-14 12:35 | PN ---
Progress Note (short form) - Note Progress Note: Renal follow up for PRASHANT Pt seen and examined at the bedside awake and alert sitting in chair no sob, chest pain, abd pain, N/V/D Vital Signs Temperature 98.1 F 08/14/17 08:53 Pulse Rate 88 08/14/17 08:53 Respiratory Rate 22 08/14/17 08:53 Blood Pressure 90/58 08/14/17 08:53 O2 Sat by Pulse Oximetry (%) 91 L 08/13/17 21:00 Intake & Output 08/11/17 08/12/17 08/13/17 08/14/17 23:59 23:59 23:59 23:59 Intake Total 1000 975 Balance 1000 975 Weight 34.019 kg 34.791 kg NAD awake and alert RRR CTA soft NT No LE edema CBC, BMP 08/14/17 06:00 08/14/17 06:00 Current Medications Acetaminophen (Tylenol -) 650 mg PO Q6H PRN PRN Reason: FEVER OR PAIN Last Admin: 08/14/17 06:13 Dose: 650 mg Albuterol Sulfate (Ventolin 0.083% Nebulizer Soln -) 1 amp NEB Q4H PRN PRN Reason: SHORT OF BREATH/WHEEZING Budesonide/Formoterol Fumarate (Symbicort 80/4.5mcg -) 2 puff IH BID [facility] Last Admin: 08/14/17 09:31 Dose: 2 puff Calcium Carbonate (Calcium Carbonate -) 650 mg PO BID [facility] Last Admin: 08/14/17 09:30 Dose: 650 mg Gabapentin (Neurontin -) 300 mg PO TID [facility] Last Admin: 08/14/17 06:13 Dose: 300 mg IV Flush (Picc Line Flush) 8 ml IVPUSH PRN PRN PRN Reason: Protocol Levetiracetam (Keppra -) 500 mg PO BID [facility] Last Admin: 08/14/17 09:30 Dose: 500 mg Lidocaine (Lidoderm Patch -) 2 patch TP DAILY [facility] Last Admin: 08/14/17 09:31 Dose: 2 patch Metoclopramide HCl (Reglan -) 10 mg PO TID [facility] Last Admin: 08/14/17 06:13 Dose: 10 mg Multivitamins/Minerals/Vitamin C (Tab-A-Vit -) 1 tab PO DAILY [facility] Last Admin: 08/14/17 09:30 Dose: 1 tab Oxycodone HCl (Oxycontin -) 20 mg PO BID [facility] Last Admin: 08/14/17 09:30 Dose: 20 mg Pantoprazole Sodium (Protonix -) 40 mg PO BID [facility] Potassium Phos/Sodium Phos (Phos-Nak Packet -) 1 packet PO TID [facility] Stop: 08/15/17 22:01 Last Admin: 08/14/17 11:30 Dose: 1 packet Tiotropium [place] (Spiriva -) 1 puff IH DAILY [facility] 52 year old woman with PMhx of Scleroderma, CREST Syndrome, COPD, CHF, Narcotic dependence, Hypothyrodism who presented with Coffee Ground Emesis and BUN/Cr of 106/3.3. #Acute Renal Failure secondary to renal hypoprofusion in setting of hypovolemia + NSAID use Renal function improved with IVF can d/c fluids and maintain on oral hydration and solute intake trend BMP daily #Coffee Ground Emesis/Anemia on IV PPI GI following #Hypovolemic hyponatremia improved with isotonic saline #Hypocalcemia Corrected Ca is 8.2 today d/c IV calcium gtt continue oral calcium carbonate start Calcitiol 0.25mcg daily check PTH Srinivasan Tijerina DO Problem List - Problems (1) GIB (gastrointestinal bleeding) Code(s): K92.2 - GASTROINTESTINAL HEMORRHAGE, UNSPECIFIED (2) Acute renal failure Code(s): N17.9 - ACUTE KIDNEY FAILURE, UNSPECIFIED Qualifiers: Acute renal failure type: unspecified Qualified Code(s): N17.9 - Acute kidney failure, unspecified (3) CREST (calcinosis, Raynaud's phenomenon, esophageal dysfunction, sclerodactyly, telangiectasia) Code(s): M34.1 - CR(E)ST SYNDROME (4) Dehydration Code(s): E86.0 - DEHYDRATION
--- NOTE | 2017-08-14 15:27 | PN ---
Progress Note (short form) - Note Progress Note: Pt seen and examined. She is a 52 year old female patient with scleroderma and Reynaud's who fell about 6 days ago, injuring her right upper arm. Xrays were taken but they are not available for my review, not done in this hospital. She is in a sling. When she doesn't move she is in little pain. PE RUE in sling Is grossly NVI RUE has no swelling, no deformity Nl ROM at the right elbow, wrist, forearm, fingers Xrays None Imp Right proximal humerus fracture Rec Sling. Xrays to better visualize fracture NWB RUE until then
[2017-08-14] MEDS: PANTOPRAZOLE 40 MG TABLET (FP) PO SCH (21:53)
[2017-08-15 06:06] LABS: SERUM IRON 161 ug/dL (27-159); TOTAL IRON BINDING CAPACITY 260 ug/dL (250-450); UIBC 99 ug/dL (131-425)
[2017-08-15] MEDS: METOCLOPRAMIDE HCL 10 MG TABLET (FP) PO SCH ×3 (06:25→21:06)
[2017-08-15] MEDS: NAPH,MB-DB/K PH,MBDB POWDER PACKET PO SCH ×3 (06:25→21:08)
[2017-08-15] MEDS: GABAPENTIN 300 MG CAPSULE (FP) PO SCH ×3 (06:25→21:06)
[2017-08-15 07:30] LABS: BASOPHIL 0.4 % (0-2.0); EOSINOPHIL 1.1 % (0-4.5); MCH 26.5 pg (25.7-33.7); MCHC 33.6 g/dl (32.0-36.0); MEAN PLT VOLUME 7.5 fl (7.5-11.1); NEUTROPHILS 69.8 % (42.8-82.8); PLATELET COUNT 317 K/MM3 (134-434); RDW 16.8 % (11.6-15.6); WHITE BLOOD COUNT 5.5 K/mm3 (4.0-10.0)
[2017-08-15 08:00] LABS: ANION GAP 8 (8-16); CALCIUM 7.1 mg/dL (8.5-10.1); CO2 27 mmol/L (21-32); CREATININE 0.5 mg/dL (0.55-1.02); GLUCOSE,RANDOM 71 mg/dL (74-106)
[2017-08-15 08:42] LABS: MAGNESIUM 0.8 mg/dL (1.8-2.4); PHOSPHOROUS 0.8 mg/dL (2.5-4.9)
[2017-08-15] MEDS ORDERED: PT OWN MED DRAWER 7, Y5N ONE ×2 (09:23→21:02)
[2017-08-15] MEDS: BUDESONIDE/FORMETEROL FUMARATE 80/4.5 mcg INHALER IH SCH ×2 (09:38→21:08)
[2017-08-15] MEDS: levETIRAcetam 500 MG TABLET (FP) PO SCH ×2 (09:39→21:07)
[2017-08-15] MEDS: MULTIVITAMINS (DAILY MVI) TABLET (FP) PO SCH (09:39)
[2017-08-15] MEDS: PANTOPRAZOLE 40 MG TABLET (FP) PO SCH ×2 (09:39→21:07)
[2017-08-15] MEDS: TIOTROPIUM BROMIDE 18 MCG/INH (DEVICE W/ 5 CAPSULES) IH SCH (09:39)
[2017-08-15] MEDS: oxyCODONE HCL 10 MG SUSTAINED ACTING TABLET PO SCH ×2 (09:39→21:07)
[2017-08-15] MEDS: LIDOCAINE 5% TOPICAL PATCH TP SCH (09:40)
[2017-08-15] MEDS: CALCIUM CARBONATE 650 MG TABLET PO SCH ×2 (09:40→21:07)
--- NOTE | 2017-08-15 10:02 | PN ---
Progress Note (short form) - Note Progress Note: Ortho Pt seen and examined PE- sling intact, + swelling, + ttp, decr rom nvi xrays shows minimally displaced proximal humerus fx a/p- right proximal humerus fx sling for immobilization NTD will follow d/w Dr. Winchester
[2017-08-15] MEDS ORDERED: WATER IVPB ONE (10:23)
[2017-08-15] MEDS ORDERED: POTASSIUM PHOSPHATE IVPB ONE (10:23)
[2017-08-15] MEDS ORDERED: DEXTROSE IVPB ONE (10:23)
[2017-08-15] MEDS: MAGNESIUM SULF 50% (8.12 MEQ/2 ML-1 GM VIAL) IVPB SCH ×2 (11:10→12:10)
--- NOTE | 2017-08-15 11:42 | PN ---
Progress Note, Physician Chief Complaint: feels better alert awake ate OK no vomiting low BP d/w pt about jejunostomy placement - we discussed about it many times in the past bit she did not want it; will dw GI - Current Medication List Current Medications: Active Medications Acetaminophen (Tylenol -) 650 mg PO Q6H PRN PRN Reason: FEVER OR PAIN Last Admin: 08/14/17 06:13 Dose: 650 mg Albuterol Sulfate (Ventolin 0.083% Nebulizer Soln -) 1 amp NEB Q4H PRN PRN Reason: SHORT OF BREATH/WHEEZING Budesonide/Formoterol Fumarate (Symbicort 80/4.5mcg -) 2 puff IH BID [facility] Last Admin: 08/15/17 09:38 Dose: 2 puff Calcium Carbonate (Calcium Carbonate -) 650 mg PO BID [facility] Last Admin: 08/15/17 09:40 Dose: 650 mg Gabapentin (Neurontin -) 300 mg PO TID [facility] Last Admin: 08/15/17 06:25 Dose: 300 mg IV Flush (Picc Line Flush) 8 ml IVPUSH PRN PRN PRN Reason: Protocol Potassium Phosphate 30 mm/ (Dextrose) 500 mls @ 100 mls/hr IVPB ONCE ONE Stop: 08/15/17 15:22 Levetiracetam (Keppra -) 500 mg PO BID [facility] Last Admin: 08/15/17 09:39 Dose: 500 mg Lidocaine (Lidoderm Patch -) 2 patch TP DAILY [facility] Last Admin: 08/15/17 09:40 Dose: 2 patch Magnesium Sulfate (Magnesium Sulfate) 2 gm IVPB Q1H [facility] Stop: 08/15/17 12:01 Last Admin: 08/15/17 11:10 Dose: 2 gm Metoclopramide HCl (Reglan -) 10 mg PO TID [facility] Last Admin: 08/15/17 06:25 Dose: 10 mg Multivitamins/Minerals/Vitamin C (Tab-A-Vit -) 1 tab PO DAILY [facility] Last Admin: 08/15/17 09:39 Dose: 1 tab Oxycodone HCl (Oxycontin -) 20 mg PO BID [facility] Last Admin: 08/15/17 09:39 Dose: 20 mg Pantoprazole Sodium (Protonix -) 40 mg PO BID [facility] Last Admin: 08/15/17 09:39 Dose: 40 mg Potassium Phos/Sodium Phos (Phos-Nak Packet -) 1 packet PO TID [facility] Stop: 08/15/17 22:01 Last Admin: 08/15/17 06:25 Dose: 1 packet Tiotropium [place] (Spiriva -) 1 puff IH DAILY [facility] Last Admin: 08/15/17 09:39 Dose: 1 puff - Objective Vital Signs: Vital Signs Temperature 98.2 F 08/15/17 09:37 Pulse Rate 84 08/15/17 09:37 Respiratory Rate 18 08/15/17 09:37 Blood Pressure 78/56 08/15/17 09:37 O2 Sat by Pulse Oximetry (%) 93 L 08/14/17 21:00 Constitutional: Yes: No Distress, Calm Eyes: Yes: Conjunctiva Clear HENT: Yes: Atraumatic Neck: Yes: Supple Cardiovascular: Yes: Regular Rate and Rhythm Respiratory: Yes: CTA Bilaterally Gastrointestinal: Yes: Soft. No: Distention Genitourinary: No: CVA Tenderness - Left, CVA Tenderness - Right Musculoskeletal: No: Joint Stiffness, Joint Swelling Extremities: No: Cold, Cool, Cyanosis Edema: No Integumentary: No: Rash, Venous Stasis Changes Neurological: Yes: Alert ...Motor Strength: WNL Psychiatric: Yes: Alert. No: Agitated, Suicidal Ideation Labs: CBC, BMP 08/15/17 06:00 08/15/17 06:00 INR, PTT INR 1.35 (0.82-1.09) H 08/12/17 18:40 - ....Imaging Other: Report Reviewed Assessment/Plan 52yo woman with PMH of Scleroderma, CREST syndrome, COPD, CHF, narcotic dependence, hypothyroidism admitted with hypotension (70's/30's) and 1 episode of coffee ground emesis; s/p fall and mild impact fracture of R humeral neck few days ago, placed in a sling. found to be anemic, severely hypoNatremic and in ARF (sec to dehydration and possible nsaids use) IVF s/p transfusion PRBC IV PPI advance diet consider jejunostomy placement GI and renal f/u; cardiology eval for hypotension and preop for possible jejunostomy f/u labs falls PFX - d/w pt do not get OOB alone, call for help if needs OOB prognosis guarded dw pt and staff
--- NOTE | 2017-08-15 16:40 | PN ---
Progress Note (short form) - Note Progress Note: Renal follow up for PRASHANT Pt seen and examined at the bedside awake and alert no acute complaints no sob, chest pain Vital Signs Temperature 98.1 F 08/15/17 14:19 Pulse Rate 97 H 08/15/17 14:19 Respiratory Rate 20 08/15/17 14:19 Blood Pressure 85/59 08/15/17 14:19 O2 Sat by Pulse Oximetry (%) 95 08/15/17 09:37 Intake & Output 08/12/17 08/13/17 08/14/17 08/15/17 23:59 23:59 23:59 23:59 Intake Total 1000 1725 850 Balance 1000 1725 850 Weight 34.019 kg 34.791 kg NAD awake and alert RRR CTA soft NT No LE edema CBC, BMP 08/15/17 06:00 08/15/17 06:00 Current Medications Acetaminophen (Tylenol -) 650 mg PO Q6H PRN PRN Reason: FEVER OR PAIN Last Admin: 08/14/17 06:13 Dose: 650 mg Albuterol Sulfate (Ventolin 0.083% Nebulizer Soln -) 1 amp NEB Q4H PRN PRN Reason: SHORT OF BREATH/WHEEZING Budesonide/Formoterol Fumarate (Symbicort 80/4.5mcg -) 2 puff IH BID [facility] Last Admin: 08/15/17 09:38 Dose: 2 puff Calcium Carbonate (Calcium Carbonate -) 650 mg PO BID [facility] Last Admin: 08/15/17 09:40 Dose: 650 mg Gabapentin (Neurontin -) 300 mg PO TID [facility] Last Admin: 08/15/17 14:37 Dose: 300 mg IV Flush (Picc Line Flush) 8 ml IVPUSH PRN PRN PRN Reason: Protocol Levetiracetam (Keppra -) 500 mg PO BID [facility] Last Admin: 08/15/17 09:39 Dose: 500 mg Lidocaine (Lidoderm Patch -) 2 patch TP DAILY [facility] Last Admin: 08/15/17 09:40 Dose: 2 patch Metoclopramide HCl (Reglan -) 10 mg PO TID [facility] Last Admin: 08/15/17 14:37 Dose: 10 mg Multivitamins/Minerals/Vitamin C (Tab-A-Vit -) 1 tab PO DAILY [facility] Last Admin: 08/15/17 09:39 Dose: 1 tab Oxycodone HCl (Oxycontin -) 20 mg PO BID [facility] Last Admin: 08/15/17 09:39 Dose: 20 mg Pantoprazole Sodium (Protonix -) 40 mg PO BID [facility] Last Admin: 08/15/17 09:39 Dose: 40 mg Potassium Phos/Sodium Phos (Phos-Nak Packet -) 1 packet PO TID [facility] Stop: 08/15/17 22:01 Last Admin: 08/15/17 14:37 Dose: Not Given Tiotropium [place] (Spiriva -) 1 puff IH DAILY [facility] Last Admin: 08/15/17 09:39 Dose: 1 puff 52 year old woman with PMhx of Scleroderma, CREST Syndrome, COPD, CHF, Narcotic dependence, Hypothyrodism who presented with Coffee Ground Emesis and BUN/Cr of 106/3.3. #Acute Renal Failure secondary to renal hypoprofusion in setting of hypovolemia + NSAID use Renal function and stable #Coffee Ground Emesis/Anemia on IV PPI GI following #Hypovolemic hyponatremia improved with isotonic saline #Hypocalcemia Ca is WNL today #Hypophosphatemia give Neutraphos and IV k-Phos oral intake as tolerated #Hypomagnesemia likely due to PPI to get Mg sulfate 4g IV Srinivasan Tijerina DO Problem List - Problems (1) GIB (gastrointestinal bleeding) Code(s): K92.2 - GASTROINTESTINAL HEMORRHAGE, UNSPECIFIED (2) Acute renal failure Code(s): N17.9 - ACUTE KIDNEY FAILURE, UNSPECIFIED Qualifiers: Acute renal failure type: unspecified Qualified Code(s): N17.9 - Acute kidney failure, unspecified (3) CREST (calcinosis, Raynaud's phenomenon, esophageal dysfunction, sclerodactyly, telangiectasia) Code(s): M34.1 - CR(E)ST SYNDROME (4) Dehydration Code(s): E86.0 - DEHYDRATION
--- NOTE | 2017-08-15 16:48 | CON.CARD ---
Consult Consult Specialty:: cardiology Reason for Consultation:: fall; hx CHF, COPD, PSS - History of Present Illness History of Present Illness: 52yo white woman with PMH of Scleroderma/CREST syndrome, COPD, diastolic CHF, narcotic dependence, hypothyroidism who presents with hypotension (70's/30's) and 1 episode of coffee ground emesis this morning. She presented to the ED two days ago s/p fall and found to have mild impact fracture of R humeral neck,and placed in a sling. This morning she had an episode of coffee ground emesis. Denies any bloody or black stools. - History Source History Provided By: Patient, Medical Record Limitations to Obtaining History: Other (pt is lethargic) - Past Medical History INSURANCE BROKER: Yes: Peripheral Neuropathy Cardio/Vascular: Yes: Aortic Insufficiency (mild), Mitral Insufficiency (mild), Other (Raynaud's w/ multiple upper extremity digit amputations. Normal coronaries on cardiac cath and EF 65% with mild AI, trace MR and TR on echo @ [facility] 03/31) Pulmonary: Yes: Asthma, COPD, Pneumonia, Other (lung mass of undetermined etiology) Gastrointestinal: Yes: Constipation, Diverticulitis, Diverticulosis (small bowel diverticular perforation, scleroderma affecting the esophagus, Bonner's esophagus, Schatzki ring,, antral ulcer, gastroparesis related to scleroderma), GERD (with long segment Bonner's esophagus and patent Schatzki ring), Peptic Ulcer Disease (antral ulcer ), Other (Bonner's esophagus, GERD, Schatzki ring, perforation of small bowel diverticulum, antral ulcer, scleroderma causing esophageal dysmotility and gastroparesis, GERD with long segment Bonner's esophagus,Schatzki ring,GAVE syndrome) Renal/: Yes: Renal Failure Reproductive: Yes: Postmenopausal Heme/Onc: Yes: Anemia Infectious Disease: Yes: MRSA (bursitis) Psych: Yes: Addictions (marijuana,tobacco and prescription narcotics) Musculoskeletal: Yes: Chronic low back pain, Other (has spinal stimulator) Rheumatology: Yes: Vasculitis, Other (Scleroderma, Raynauds and CREST syndrome) Endocrine: Yes: Hypothyroidism, Other (Malnutrition, osteoporosis) Dermatology: Yes: Cellulitis Additional Medical History: Scleroderma with Raynauds phenomena , CREST Syndrome dx'ed Dr Correa PENDING SALE TO [facility]. Cradiac cath 03/31 with normal coronaries - Past Surgical History Past Surgical History: Yes: Appendectomy, Colonoscopy, Upper Endoscopy Additional Surgical History: Exploratory laparotomy for pneumoperitoneum without significant findings. Bilateral hip and right elbow bursectomies. spinal stimulator inserted and removed - Alcohol/Substance Use Hx Alcohol Use: No History of Substance Use: reports: Marijuana, Prescription - Smoking History Smoking history: Current every day smoker (for the past few months has been using a "vape" cigarette daily to try to stop tobacco use) Have you smoked in the past 12 months: Yes Aproximately how many cigarettes per day: 20 If you are a former smoker, when did you quit?: 4 years ago - Social History Usual Living Arrangement: With Parent ADL: Independent Occupation: disabled History of Recent Travel: No Home Medications - Allergies Allergies/Adverse Reactions: Allergies Allergy/AdvReac Type Severity Reaction Status Date / Time Penicillins Allergy Severe Hives Verified 08/10/17 13:23 tomato AdvReac Uncoded 08/10/17 13:23 - Home Medications Home Medications: Ambulatory Orders Albuterol 0.083% Nebulizer Cinthya [Ventolin 0.083% Nebulizer Soln -] 1 amp NEB Q4H PRN #1 amp 04/11/16 Aspirin [ASA -] 81 mg PO DAILY tab.chew 04/11/16 Budesonide/Formeterol Fumarate [SYMBICORT 80/4.5mcg -] 2 puff IH BID #1 inhaler 04/11/16 Ranitidine [Zantac -] 150 mg PO DAILY 05/27/16 Aclidinium [place] [Tudorza -] 1 puff IH DAILY inhaler 07/20/16 Lactobacillus Acidophilus [Bacid -] 1 each PO DAILY #30 capsule 07/20/16 Metoclopramide HCl [Reglan -] 10 mg PO ACHS tablet 07/20/16 Acetaminophen [Tylenol .Regular Strength -] 650 mg PO Q6H PRN #0 tablet Hydroxychloroquine So4 [Plaquenil -] 200 mg PO BID tablet 07/31/16 Multivitamins [Multivit ([facility] Formulary)] 1 tab PO DAILY tab 12/17/16 Acetaminophen [Tylenol .Regular Strength -] 650 mg PO Q6H PRN #0 tablet Albuterol 0.083% Nebulizer Cinthya [Ventolin 0.083% Nebulizer Soln -] 1 amp NEB Q4H PRN #30 amp 05/06/17 Gabapentin [Neurontin -] 300 mg PO TID #90 cap 05/06/17 Levetiracetam [Keppra -] 1,000 mg PO BID #60 tablet 05/06/17 Lidocaine 5% Patch [Lidoderm -] 2 patch TP DAILY #60 patch 05/06/17 Mag Hydrox/Al Hydrox/Simeth [Mylanta Oral Suspension -] 30 ml PO Q6HPO PRN #0 vial 05/06/17 Magnesium Chloride [Slow-Mag -] 128 mg PO DAILY #30 tab MDD 1 05/06/17 Oxycodone Sr [Oxycontin] 20 mg PO BID PRN #30 tab MDD 2 05/06/17 Pantoprazole Sodium [Protonix -] 40 mg PO BID #60 tab 05/06/17 Potassium Chloride [K-Dur -] 20 meq PO DAILY #30 tab 05/06/17 Family Disease History - Family Disease History Family Disease History: Diabetes: Father (HCV), Heart Disease: Father, Mother, Other: Father, Brother (HIV) Review of Systems - Review of Systems Constitutional: reports: Lethargy, Loss of Appetite, Weakness Eyes: reports: No Symptoms HENT: reports: Other (injurty to nose from fall) Neck: reports: No Symptoms, Stiffness Cardiovascular: reports: No Symptoms Respiratory: reports: Exercise Intolerance Gastrointestinal: reports: No Symptoms Genitourinary: reports: No Symptoms Breasts: reports: No Symptoms Reported Musculoskeletal: reports: Joint Pain, Muscle Weakness Integumentary: reports: No Symptoms Neurological: reports: Weakness Psychiatric: reports: Depression, Other (addictive personality) - Risk Factors Known Risk Factors: Yes: Age, Family History, Hypercholesterolemia, Hypertension , Physical Inactivity, Smoking Vital Signs: Vital Signs Temperature 98.1 F 08/15/17 14:19 Pulse Rate 97 H 08/15/17 14:19 Respiratory Rate 20 08/15/17 14:19 Blood Pressure 85/59 08/15/17 14:19 O2 Sat by Pulse Oximetry (%) 95 08/15/17 09:37 Constitutional: Yes: [place]hen, Thin Eyes: Yes: WNL HENT: Yes: Other (pain and swelling of the nose) Neck: Yes: WNL Respiratory: Yes: WNL Gastrointestinal: Yes: Soft Renal/: No: Anuria Cardiovascular: Yes: Regular Rate and Rhythm JVD: No Carotid Bruit: No PMI: Non-Displaced Heart Sounds: Yes: S1, S2 Murmur: Yes: Systolic Murmur, Grade 2 Musculoskeletal: Yes: Joint Stiffness, Muscle Weakness Extremities: Yes: Cool Edema: No Peripheral Pulses WNL: No Peripheral Pulses: 1+ Left Doralis Pedis, 1+ Right Dorsalis Pedis Integumentary: Yes: Bruising Neurological: Yes: Weakness Psychiatric: Yes: Alert, Oriented, Other - Other Data Labs, Other Data: CBC, BMP 08/15/17 06:00 08/15/17 06:00 INR, PTT INR 1.35 (0.82-1.09) H 08/12/17 18:40 Ejection Fraction %: LVEF > or = 40 % Imaging - Results Cat Scan: Image Reviewed (significant COPD) Problem List - Problems (1) Acute renal failure Code(s): N17.9 - ACUTE KIDNEY FAILURE, UNSPECIFIED Qualifiers: Acute renal failure type: unspecified Qualified Code(s): N17.9 - Acute kidney failure, unspecified (2) Altered awareness, transient Code(s): R40.4 - TRANSIENT ALTERATION OF AWARENESS (3) COPD (chronic obstructive pulmonary disease) Assessment/Plan: CT chest: COPD, nodules. F/u with ocean export account manager. Code(s): J44.9 - CHRONIC OBSTRUCTIVE PULMONARY DISEASE, UNSPECIFIED (4) CREST (calcinosis, Raynaud's phenomenon, esophageal dysfunction, sclerodactyly, telangiectasia) Assessment/Plan: F/u with lifter/driver. Code(s): M34.1 - CR(E)ST SYNDROME (5) Dobson cardiac risk >20% in next 10 years Assessment/Plan: 2016 stress MIBI at [facility] was + for anterior ischemia; f/u results of coronary angiogram (microvascular ischemia is a manifestation of PSS). Consider ACEI and/or Ca2 blockers. Code(s): Z91.89 - [facility] PERSONAL RISK FACTORS, NOT ELSEWHERE CLASSIFIED (6) GERD (gastroesophageal reflux disease) Code(s): K21.9 - GASTRO-ESOPHAGEAL REFLUX DISEASE WITHOUT ESOPHAGITIS (7) Has smoked cigarettes within prior year Code(s): Z87.891 - PERSONAL HISTORY OF NICOTINE DEPENDENCE (8) Hypokalemia Assessment/Plan: replete all electrolytes, and f/u levels. Code(s): E87.6 - HYPOKALEMIA (9) Hypomagnesemia Code(s): E83.42 - HYPOMAGNESEMIA (10) Hyponatremia Code(s): E87.1 - HYPO-OSMOLALITY AND HYPONATREMIA (11) Hypophosphatemia Code(s): E83.39 - OTHER DISORDERS OF PHOSPHORUS METABOLISM (12) Hypotension Assessment/Plan: Hydration. Improve nutrition. Avoid medications that lower BP. Orthostatic vital signs serially. Code(s): I95.9 - HYPOTENSION, UNSPECIFIED (13) Injury of head Code(s): S09.90XA - UNSPECIFIED INJURY OF HEAD, INITIAL ENCOUNTER (14) Interstitial lung disease Code(s): J84.9 - INTERSTITIAL PULMONARY DISEASE, UNSPECIFIED (15) Malnutrition Code(s): E46 - UNSPECIFIED PROTEIN-CALORIE MALNUTRITION Qualifiers: Malnutrition type: protein-calorie malnutrition (16) Opiate dependence Code(s): F11.20 - OPIOID DEPENDENCE, UNCOMPLICATED (17) Renal insufficiency Code(s): N28.9 - DISORDER OF KIDNEY AND URETER, UNSPECIFIED
[2017-08-16] MEDS: METOCLOPRAMIDE HCL 10 MG TABLET (FP) PO SCH ×3 (05:44→22:01)
[2017-08-16] MEDS: GABAPENTIN 300 MG CAPSULE (FP) PO SCH ×3 (05:44→22:01)
--- NOTE | 2017-08-16 07:03 | PN ---
Progress Note, Physician Chief Complaint: RUE pain on/off, chronic back pain I was informed by staff nurse that pt was taking extra oxycontin from her purse (she had 60 mg tablets broughtr in from home) on top of the meds ordered in ; pt is aware she she should not have; meds confiscated by security - Current Medication List Current Medications: Active Medications Acetaminophen (Tylenol -) 650 mg PO Q6H PRN PRN Reason: FEVER OR PAIN Last Admin: 08/14/17 06:13 Dose: 650 mg Albuterol Sulfate (Ventolin 0.083% Nebulizer Soln -) 1 amp NEB Q4H PRN PRN Reason: SHORT OF BREATH/WHEEZING Budesonide/Formoterol Fumarate (Symbicort 80/4.5mcg -) 2 puff IH BID [facility] Last Admin: 08/15/17 21:08 Dose: 2 puff Calcium Carbonate (Calcium Carbonate -) 650 mg PO BID [facility] Last Admin: 08/15/17 21:07 Dose: 650 mg Gabapentin (Neurontin -) 300 mg PO TID [facility] Last Admin: 08/16/17 05:44 Dose: Not Given IV Flush (Picc Line Flush) 8 ml IVPUSH PRN PRN PRN Reason: Protocol Levetiracetam (Keppra -) 500 mg PO BID [facility] Last Admin: 08/15/17 21:07 Dose: 500 mg Lidocaine (Lidoderm Patch -) 2 patch TP DAILY [facility] Last Admin: 08/15/17 09:40 Dose: 2 patch Metoclopramide HCl (Reglan -) 10 mg PO TID [facility] Last Admin: 08/16/17 05:44 Dose: Not Given Multivitamins/Minerals/Vitamin C (Tab-A-Vit -) 1 tab PO DAILY [facility] Last Admin: 08/15/17 09:39 Dose: 1 tab Oxycodone HCl (Oxycontin -) 20 mg PO BID [facility] Last Admin: 08/15/17 21:07 Dose: 20 mg Pantoprazole Sodium (Protonix -) 40 mg PO BID [facility] Last Admin: 08/15/17 21:07 Dose: 40 mg Tiotropium [place] (Spiriva -) 1 puff IH DAILY [facility] Last Admin: 08/15/17 09:39 Dose: 1 puff - Objective Vital Signs: Vital Signs Temperature 98.6 F 08/16/17 05:47 Pulse Rate 83 08/16/17 05:47 Respiratory Rate 20 08/16/17 05:47 Blood Pressure 98/62 08/16/17 05:47 O2 Sat by Pulse Oximetry (%) 95 08/15/17 21:00 Constitutional: Yes: Anxious Eyes: Yes: Conjunctiva Clear HENT: Yes: Atraumatic Neck: Yes: Supple Cardiovascular: Yes: Regular Rate and Rhythm Respiratory: Yes: CTA Bilaterally Gastrointestinal: Yes: Soft. No: Distention Genitourinary: No: CVA Tenderness - Left, CVA Tenderness - Right Musculoskeletal: No: Joint Stiffness, Joint Swelling Extremities: No: Cold, Cool Edema: No Integumentary: No: Rash, Venous Stasis Changes Neurological: Yes: Alert ...Motor Strength: WNL Psychiatric: Yes: Alert. No: Agitated, Suicidal Ideation Labs: CBC, BMP 08/15/17 06:00 08/15/17 06:00 INR, PTT INR 1.35 (0.82-1.09) H 08/12/17 18:40 - ....Imaging Other: Report Reviewed Assessment/Plan 52yo woman with PMH of Scleroderma, CREST syndrome, COPD, CHF, narcotic dependence, hypothyroidism admitted with hypotension (70's/30's) and 1 episode of coffee ground emesis; s/p fall and mild impact fracture of R humeral neck few days ago, placed in a sling. found to be anemic, severely hypoNatremic and in ARF (sec to dehydration and possible nsaids use) d/w pt again she should not take more oxycontin than ordered 20 mg po bid and this to be taken only for RUE fracture for few days - weeks then taper it to off completely advance diet consider jejunostomy placement - pt is considering having it now GI and renal f/u; cardiology eval for hypotension and preop for possible jejunostomy d/w GI - to call surgery for jejunostomy f/u labs falls PFX - d/w pt do not get OOB alone, call for help if needs OOB prognosis guarded dw pt and staff
--- NOTE | 2017-08-16 08:08 | CONSULT ---
- Consultation REQUESTING PROVIDER: Dana Gonzalez MD CONSULT REQUEST: We have been asked to surgically evaluate this patient for provision of a feeding jejunostomy PCP:Eva Gonzalez HISTORY OF PRESENT ILLNESS: Admitted for RUE fx and facial trauma after fall; found to have ? UGIB ?; seen by GI; patient refused EGD; received PRBC's; patient known to me from 12/31 when she underwent ex lap for pneumoperitoneum for which no source was found; she has a h/o narcotic induced GI hypomotility among other GI issues. PMHx: CREST syndrome PSHx: As above. Home Medications Medication Instructions Recorded Albuterol 0.083% Nebulizer Cinthya 1 amp NEB Q4H PRN #1 amp 04/11/16 [Ventolin 0.083% Nebulizer Soln -] Aspirin [ASA -] 81 mg PO DAILY tab.chew 04/11/16 Budesonide/Formeterol Fumarate 2 puff IH BID #1 inhaler 04/11/16 [SYMBICORT 80/4.5mcg -] Ranitidine [Zantac -] 150 mg PO DAILY 05/27/16 Aclidinium [place] [Tudorza -] 1 puff IH DAILY inhaler 07/20/16 Lactobacillus Acidophilus [Bacid -] 1 each PO DAILY #30 capsule 07/20/16 Metoclopramide HCl [Reglan -] 10 mg PO ACHS tablet 07/20/16 Acetaminophen [Tylenol .Regular 650 mg PO Q6H PRN #0 tablet 07/31/16 Strength -] Hydroxychloroquine So4 [Plaquenil 200 mg PO BID tablet 07/31/16 -] Multivitamins [Multivit ([facility] 1 tab PO DAILY tab 12/17/16 Formulary)] Acetaminophen [Tylenol .Regular 650 mg PO Q6H PRN #0 tablet 05/06/17 Strength -] Albuterol 0.083% Nebulizer Cinthya 1 amp NEB Q4H PRN #30 amp 05/06/17 [Ventolin 0.083% Nebulizer Soln -] Gabapentin [Neurontin -] 300 mg PO TID #90 cap 05/06/17 Levetiracetam [Keppra -] 1,000 mg PO BID #60 tablet 05/06/17 Lidocaine 5% Patch [Lidoderm -] 2 patch TP DAILY #60 patch 05/06/17 Mag Hydrox/Al Hydrox/Simeth 30 ml PO Q6HPO PRN #0 vial 05/06/17 [Mylanta Oral Suspension -] Magnesium Chloride [Slow-Mag -] 128 mg PO DAILY #30 tab MDD 1 05/06/17 Oxycodone Sr [Oxycontin] 20 mg PO BID PRN #30 tab MDD 2 05/06/17 Pantoprazole Sodium [Protonix -] 40 mg PO BID #60 tab 05/06/17 Potassium Chloride [K-Dur -] 20 meq PO DAILY #30 tab 05/06/17 Allergies Allergy/AdvReac Type Severity Reaction Status Date / Time Penicillins Allergy Severe Hives Verified 08/10/17 13:23 tomato AdvReac Uncoded 08/10/17 13:23 PHYSICAL EXAM: GENERAL: Awake, alert, and fully oriented, in no acute distress; eating lunch. HEAD: Normal with no signs of trauma. EYES: sclera anicteric, conjunctiva clear. NECK: Normal ROM, supple without lymphadenopathy, JVD, or masses. ABDOMEN: Soft, nontender, not distended, normoactive bowel sounds, no guarding, no rebound, no masses. No organomegaly. Healed midline incision w/o hernia MUSCULOSKELETAL: Normal ROM at all joints. No bony deformities or tenderness. No CVA tenderness. RUE in sling UPPER EXTREMITIES: 2+ pulses, warm, well-perfused. No cyanosis. Cap refill <2 seconds. No peripheral edema. LOWER EXTREMITIES: 2+ pulses, warm, well-perfused. No calf tenderness. No peripheral edema. NEUROLOGICAL: Normal speech, gait not observed. PSYCH: Cooperative. Good eye contact. Appropriate mood and affect. SKIN: Warm, dry, normal turgor, no rashes or lesions noted. Vital Signs Temperature 98.6 F 08/16/17 05:47 Pulse Rate 83 08/16/17 05:47 Respiratory Rate 20 08/16/17 05:47 Blood Pressure 98/62 08/16/17 05:47 O2 Sat by Pulse Oximetry (%) 95 08/15/17 21:00 Lab Results WBC 5.5 K/mm3 (4.0-10.0) 08/15/17 06:00 RBC 3.90 M/mm3 (3.60-5.2) 08/15/17 06:00 Hgb 10.4 GM/dL (10.7-15.3) L 08/15/17 06:00 Hct 30.8 % (32.4-45.2) L 08/15/17 06:00 MCV 79.0 fl (80-96) L 08/15/17 06:00 MCHC 33.6 g/dl (32.0-36.0) 08/15/17 06:00 RDW 16.8 % (11.6-15.6) H 08/15/17 06:00 Plt Count 317 K/MM3 (134-434) 08/15/17 06:00 Sodium 137 mmol/L (136-145) 08/15/17 06:00 Potassium 4.4 mmol/L (3.5-5.1) D 08/15/17 06:00 Chloride 102 mmol/L (98-107) 08/15/17 06:00 Carbon Dioxide 27 mmol/L (21-32) 08/15/17 06:00 Anion Gap 8 (8-16) 08/15/17 06:00 BUN 21 mg/dL (7-18) H D 08/15/17 06:00 Creatinine 0.5 mg/dL (0.55-1.02) L D 08/15/17 06:00 Random Glucose 71 mg/dL (74-106) L 08/15/17 06:00 Calcium 7.1 mg/dL (8.5-10.1) L 08/15/17 06:00 Blood Type O POSITIVE 08/12/17 18:40 Antibody Screen Negative 08/12/17 18:40 INR 1.35 (0.82-1.09) H 08/12/17 18:40 IMP: h/o pneumoperitoneum w/o source and h/o GI narcotic induced dysmotility PLAN: GI was consulted for a feeding jejunostomy which the GI account consultant stated he no longer performs; I do not believe a surgical approach is indicated in this patient who is eating w/what appears to be w/o difficulty; if truly indicated another Film Process Operator should be consulted; given this patients h/ o narcotic induced dysmotility laparotomy and surgical placement of a feeding jejunostomy would be complicated by post operative GI dysmotility componded by her underlying condition. Chris Burns MD FACS Visit type - Case Type Case Type: ED Admission - Emergency Emergency Visit: Yes ED Registration Date: 08/12/17 Care time: The patient presented to the Emergency Department on the above date and was hospitalized for further evaluation of their emergent condition. - New patient This patient is new to me today: Yes Date on this admission: 08/16/17 - Critical Care Critical Care patient: No
[2017-08-16 08:19] LABS: ALBUMIN 1.9 g/dl (3.4-5.0); ALK PHOS 52 U/L (45-117); ANION GAP 9 (8-16); BASOPHIL 0.4 % (0-2.0); BILIRUBIN,TOTAL 0.3 mg/dL (0.2-1.0); CALCIUM 7.1 mg/dL (8.5-10.1); CO2 25 mmol/L (21-32); CREATININE 0.4 mg/dL (0.55-1.02); EOSINOPHIL 1.3 % (0-4.5); GLUCOSE,RANDOM 66 mg/dL (74-106); MAGNESIUM 1.4 mg/dL (1.8-2.4); MCH 26.4 pg (25.7-33.7); MCHC 32.7 g/dl (32.0-36.0); MEAN CELL VOLUME 80.7 fl (80-96); MEAN PLT VOLUME 7.5 fl (7.5-11.1); NEUTROPHILS 66.9 % (42.8-82.8); PHOSPHOROUS 1.3 mg/dL (2.5-4.9); PLATELET COUNT 396 K/MM3 (134-434); SGOT/AST 10 U/L (15-37); SGPT/ALT 20 U/L (12-78); TOT PROT 5.4 g/dl (6.4-8.2); WHITE BLOOD COUNT 5.6 K/mm3 (4.0-10.0)
[2017-08-16 08:27] LABS: INR 1.35 (0.82-1.09); PROTHROMBIN TIME (PATIENT) 15.2 SEC (9.98-11.88)
[2017-08-16 08:31] LABS: ACTIVATED PTT 35.5 SECONDS (26.9-34.4)
[2017-08-16] MEDS ORDERED: PT OWN MED DRAWER 7, Y5N ONE ×2 (10:29→16:55)
[2017-08-16] MEDS: levETIRAcetam 500 MG TABLET (FP) PO SCH ×2 (10:49→22:00)
[2017-08-16] MEDS: oxyCODONE HCL 10 MG SUSTAINED ACTING TABLET PO SCH ×2 (10:49→21:59)
[2017-08-16] MEDS: MULTIVITAMINS (DAILY MVI) TABLET (FP) PO SCH (10:49)
[2017-08-16] MEDS: PANTOPRAZOLE 40 MG TABLET (FP) PO SCH ×2 (10:50→22:01)
[2017-08-16] MEDS: TIOTROPIUM BROMIDE 18 MCG/INH (DEVICE W/ 5 CAPSULES) IH SCH ×2 (10:50→19:38)
[2017-08-16] MEDS: BUDESONIDE/FORMETEROL FUMARATE 80/4.5 mcg INHALER IH SCH ×2 (10:50→22:02)
[2017-08-16] MEDS: CALCIUM CARBONATE 650 MG TABLET PO SCH ×2 (10:52→22:00)
[2017-08-16] MEDS: LIDOCAINE 5% TOPICAL PATCH TP SCH (10:52)
[2017-08-16] MEDS ORDERED: SODIUM PHOSPHATE IVPB ONE (12:30)
[2017-08-16] MEDS ORDERED: MAGNESIUM SULF 50% (8.12 MEQ/2 ML-1 GM VIAL) IVPB ONE ×2 (12:30→21:15)
[2017-08-16] MEDS ORDERED: WATER IVPB ONE (12:30)
[2017-08-16] MEDS ORDERED: DEXTROSE IVPB ONE (12:30)
--- NOTE | 2017-08-16 12:43 | PN ---
Progress Note, Physician Chief Complaint: The patient seen in her room. Sitting by her bed. No new complaints. History of Present Illness: 52 year old woman with PMhx of Scleroderma, CREST Syndrome, COPD, CHF, Narcotic dependence, Hypothyrodism who presented with Coffee Ground Emesis and BUN/Cr of 106/3.3. - Current Medication List Current Medications: Active Medications Acetaminophen (Tylenol -) 650 mg PO Q6H PRN PRN Reason: FEVER OR PAIN Last Admin: 08/14/17 06:13 Dose: 650 mg Albuterol Sulfate (Ventolin 0.083% Nebulizer Soln -) 1 amp NEB Q4H PRN PRN Reason: SHORT OF BREATH/WHEEZING Budesonide/Formoterol Fumarate (Symbicort 80/4.5mcg -) 2 puff IH BID [facility] Last Admin: 08/16/17 10:50 Dose: 2 puff Calcium Carbonate (Calcium Carbonate -) 650 mg PO BID [facility] Last Admin: 08/16/17 10:52 Dose: 650 mg Gabapentin (Neurontin -) 300 mg PO TID [facility] Last Admin: 08/16/17 05:44 Dose: Not Given IV Flush (Picc Line Flush) 8 ml IVPUSH PRN PRN PRN Reason: Protocol Sodium Phosphate 15 mm/ (Dextrose) 250 mls @ 62.5 mls/hr IVPB ONCE ONE PRN Reason: 15 MM/4 HR Stop: 08/16/17 16:29 Levetiracetam (Keppra -) 500 mg PO BID [facility] Last Admin: 08/16/17 10:49 Dose: 500 mg Lidocaine (Lidoderm Patch -) 2 patch TP DAILY [facility] Last Admin: 08/16/17 10:52 Dose: 2 patch Metoclopramide HCl (Reglan -) 10 mg PO TID [facility] Last Admin: 08/16/17 05:44 Dose: Not Given Multivitamins/Minerals/Vitamin C (Tab-A-Vit -) 1 tab PO DAILY [facility] Last Admin: 08/16/17 10:49 Dose: 1 tab Oxycodone HCl (Oxycontin -) 20 mg PO BID [facility] Last Admin: 08/16/17 10:49 Dose: 20 mg Pantoprazole Sodium (Protonix -) 40 mg PO BID [facility] Last Admin: 08/16/17 10:50 Dose: 40 mg Tiotropium [place] (Spiriva -) 1 puff IH DAILY [facility] Last Admin: 08/16/17 10:50 Dose: 1 puff - Objective Vital Signs: Vital Signs Temperature 97.6 F 08/16/17 09:49 Pulse Rate 91 H 08/16/17 09:49 Respiratory Rate 18 08/16/17 09:49 Blood Pressure 100/80 08/16/17 09:49 O2 Sat by Pulse Oximetry (%) 95 08/15/17 21:00 Constitutional: Yes: Anxious, Mild Distress Eyes: Yes: Conjunctiva Clear Neck: Yes: Trachea Midline Cardiovascular: Yes: S1, S2 Respiratory: Yes: CTA Bilaterally, Diminished Gastrointestinal: Yes: Normal Bowel Sounds, Soft Genitourinary: No: Bladder Distention, CVA Tenderness - Left, CVA Tenderness - Right Edema: No Labs: CBC, BMP 08/16/17 06:30 08/16/17 06:30 INR, PTT INR 1.35 (0.82-1.09) H 08/16/17 06:30 Problem List - Problems (1) Abdominal pain Code(s): R10.9 - UNSPECIFIED ABDOMINAL PAIN (2) Acute renal failure Code(s): N17.9 - ACUTE KIDNEY FAILURE, UNSPECIFIED Qualifiers: Acute renal failure type: unspecified Qualified Code(s): N17.9 - Acute kidney failure, unspecified (3) COPD (chronic obstructive pulmonary disease) Code(s): J44.9 - CHRONIC OBSTRUCTIVE PULMONARY DISEASE, UNSPECIFIED (4) CREST (calcinosis, Raynaud's phenomenon, esophageal dysfunction, sclerodactyly, telangiectasia) Code(s): M34.1 - CR(E)ST SYNDROME (5) Hypomagnesemia Code(s): E83.42 - HYPOMAGNESEMIA (6) Hypophosphatemia Code(s): E83.39 - OTHER DISORDERS OF PHOSPHORUS METABOLISM Assessment/Plan 52 year old woman with PMhx of Scleroderma, CREST Syndrome, COPD, CHF, Narcotic dependence, Hypothyrodism who presented with Coffee Ground Emesis and BUN/Cr of 106/3.3. The Renal functions have improved since admission, and is at her baseline. Hypophosphatemia and Hypomagnesemia persists. Will give supplements. Orders written for Sodium Phosphate and Magnesium Sulfate and discussed with the RN. Thank you. Will follow with you. Michelle Washington MD
--- NOTE | 2017-08-16 21:27 | PN ---
Progress Note, Physician Chief Complaint: Pt is A&Ox3; eating dinner, with improving appetite. History of Present Illness: 52yo white woman with PMH of Scleroderma/CREST syndrome, COPD, diastolic CHF, narcotic dependence, hypothyroidism who presents with hypotension (70's/30's) and 1 episode of coffee ground emesis on day of admission. She presented to the ED two days prior to this admission s/p fall and found to have mild impact fracture of R humeral neck,and placed in a sling. Denies any bloody or black stools. - Current Medication List Current Medications: Active Medications Acetaminophen (Tylenol -) 650 mg PO Q6H PRN PRN Reason: FEVER OR PAIN Last Admin: 08/14/17 06:13 Dose: 650 mg Albuterol Sulfate (Ventolin 0.083% Nebulizer Soln -) 1 amp NEB Q4H PRN PRN Reason: SHORT OF BREATH/WHEEZING Budesonide/Formoterol Fumarate (Symbicort 80/4.5mcg -) 2 puff IH BID [facility] Last Admin: 08/16/17 10:50 Dose: 2 puff Calcium Carbonate (Calcium Carbonate -) 650 mg PO BID [facility] Last Admin: 08/16/17 10:52 Dose: 650 mg Gabapentin (Neurontin -) 300 mg PO TID [facility] Last Admin: 08/16/17 13:48 Dose: 300 mg IV Flush (Picc Line Flush) 8 ml IVPUSH PRN PRN PRN Reason: Protocol Levetiracetam (Keppra -) 500 mg PO BID [facility] Last Admin: 08/16/17 10:49 Dose: 500 mg Lidocaine (Lidoderm Patch -) 2 patch TP DAILY [facility] Last Admin: 08/16/17 10:52 Dose: 2 patch Metoclopramide HCl (Reglan -) 10 mg PO TID [facility] Last Admin: 08/16/17 13:48 Dose: 10 mg Multivitamins/Minerals/Vitamin C (Tab-A-Vit -) 1 tab PO DAILY [facility] Last Admin: 08/16/17 10:49 Dose: 1 tab Oxycodone HCl (Oxycontin -) 20 mg PO BID [facility] Last Admin: 08/16/17 10:49 Dose: 20 mg Pantoprazole Sodium (Protonix -) 40 mg PO BID [facility] Last Admin: 08/16/17 10:50 Dose: 40 mg Tiotropium [place] (Spiriva -) 1 puff IH DAILY [facility] Last Admin: 08/16/17 19:38 Dose: Not Given - Objective Vital Signs: Vital Signs Temperature 98.2 F 08/16/17 18:00 Pulse Rate 91 H 08/16/17 18:00 Respiratory Rate 20 08/16/17 18:00 Blood Pressure 91/58 08/16/17 18:00 O2 Sat by Pulse Oximetry (%) 95 08/15/17 21:00 Constitutional: Yes: Calm Eyes: Yes: WNL HENT: Yes: WNL Neck: Yes: WNL Cardiovascular: Yes: Regular Rate and Rhythm, S1, S2 Respiratory: Yes: Regular, Diminished Gastrointestinal: Yes: Soft ...Rectal Exam: Yes: Deferred Genitourinary: No: Anuria Breast(s): Yes: WNL Musculoskeletal: Yes: Muscle Weakness, Other (right arm in sling (humerus fracture)) Extremities: Yes: Cool Edema: Yes Edema: RUE: 1+ (fell on right knee) Peripheral Pulses WNL: No Peripheral Pulses: Left Doralis Pedis: 1+, Right Dorsalis Pedis: 1+ Integumentary: Yes: Bruising Neurological: Yes: Alert, Oriented, Weakness Psychiatric: Yes: Alert, Oriented, Other Labs: CBC, BMP 08/16/17 06:30 08/16/17 06:30 INR, PTT INR 1.35 (0.82-1.09) H 08/16/17 06:30 Abnormal Lab Results 08/12/17 08/16/17 08/16/17 18:40 06:30 06:30 RDW 17.0 H Monocytes % 11.2 H PT with INR 15.20 H INR 1.35 H PTT (Actin FS) 35.5 H Sodium Creatinine Random Glucose Calcium Phosphorus Magnesium AST Total Protein Albumin Crossmatch See Detail 08/16/17 06:30 RDW Monocytes % PT with INR INR PTT (Actin FS) Sodium 134 L Creatinine 0.4 L Random Glucose 66 L Calcium 7.1 L Phosphorus 1.3 L D Magnesium 1.4 L D AST 10 L D Total Protein 5.4 L Albumin 1.9 L Crossmatch - ....Imaging X-ray: Image Reviewed (knee: no fracture; soft tissue swelling) Problem List - Problems (1) Acute renal failure Assessment/Plan: Initial BUN/Cr of 106/3.3-->14/0.4 since admission four days ago with fluid Rx Code(s): N17.9 - ACUTE KIDNEY FAILURE, UNSPECIFIED Qualifiers: Acute renal failure type: unspecified Qualified Code(s): N17.9 - Acute kidney failure, unspecified (2) Altered awareness, transient Code(s): R40.4 - TRANSIENT ALTERATION OF AWARENESS (3) COPD (chronic obstructive pulmonary disease) Assessment/Plan: CT chest: COPD, nodules. F/u with coal unloader. The imperative need to stop tobacco smoking (and, ideally, to eventually stop e- cigarette) was again discussed. Code(s): J44.9 - CHRONIC OBSTRUCTIVE PULMONARY DISEASE, UNSPECIFIED (4) CREST (calcinosis, Raynaud's phenomenon, esophageal dysfunction, sclerodactyly, telangiectasia) Assessment/Plan: F/u with insurance sales assistant. Code(s): M34.1 - CR(E)ST SYNDROME (5) [place] cardiac risk >20% in next 10 years Assessment/Plan: 2016 stress MIBI at [facility] was + for anterior ischemia; f/u results of coronary angiogram. Microvascular ischemia is a manifestation of PSS. Consider ACEI and/or Ca2 blockers if and when BP allows; presently remains borderline hypotensive. Code(s): Z91.89 - [facility] PERSONAL RISK FACTORS, NOT ELSEWHERE CLASSIFIED (6) GERD (gastroesophageal reflux disease) Code(s): K21.9 - GASTRO-ESOPHAGEAL REFLUX DISEASE WITHOUT ESOPHAGITIS (7) Has smoked cigarettes within prior year Code(s): Z87.891 - PERSONAL HISTORY OF NICOTINE DEPENDENCE (8) Hypokalemia Assessment/Plan: replete all electrolytes, and f/u levels. Will give additional Mg. Keep Mg 2-2.3, K 4-4.5, PO4>2.5, Na 135-140. Code(s): E87.6 - HYPOKALEMIA (9) Hypomagnesemia Code(s): E83.42 - HYPOMAGNESEMIA (10) Hyponatremia Code(s): E87.1 - HYPO-OSMOLALITY AND HYPONATREMIA (11) Hypophosphatemia Code(s): E83.39 - OTHER DISORDERS OF PHOSPHORUS METABOLISM (12) Hypotension Assessment/Plan: Hydration. Improve nutrition. Avoid medications that lower BP. Orthostatic vital signs serially. Code(s): I95.9 - HYPOTENSION, UNSPECIFIED (13) Injury of head Code(s): S09.90XA - UNSPECIFIED INJURY OF HEAD, INITIAL ENCOUNTER (14) Interstitial lung disease Code(s): J84.9 - INTERSTITIAL PULMONARY DISEASE, UNSPECIFIED (15) Malnutrition Code(s): E46 - UNSPECIFIED PROTEIN-CALORIE MALNUTRITION Qualifiers: Malnutrition type: protein-calorie malnutrition (16) Opiate dependence Assessment/Plan: Drug and psychological counseling would be of benefit, though this is has been a very long-standing problem for Ms. Rider. Code(s): F11.20 - OPIOID DEPENDENCE, UNCOMPLICATED (17) Renal insufficiency Code(s): N28.9 - DISORDER OF KIDNEY AND URETER, UNSPECIFIED
[2017-08-17] MEDS: ACETAMINOPHEN 325 MG TABLET (FP) PO PRN (04:22)
[2017-08-17] MEDS: GABAPENTIN 300 MG CAPSULE (FP) PO SCH ×3 (06:33→21:48)
[2017-08-17] MEDS: METOCLOPRAMIDE HCL 10 MG TABLET (FP) PO SCH ×3 (06:33→21:48)
[2017-08-17 07:37] LABS: BASOPHIL 0.4 % (0-2.0); EOSINOPHIL 1.1 % (0-4.5); MCH 26.2 pg (25.7-33.7); MCHC 32.4 g/dl (32.0-36.0); MEAN PLT VOLUME 7.3 fl (7.5-11.1); PLATELET COUNT 433 K/MM3 (134-434); RDW 17.4 % (11.6-15.6); WHITE BLOOD COUNT 7.3 K/mm3 (4.0-10.0)
[2017-08-17 07:39] LABS: ALBUMIN 1.9 g/dl (3.4-5.0); ANION GAP 10 (8-16); CALCIUM 7.3 mg/dL (8.5-10.1); CO2 23 mmol/L (21-32); GLUCOSE,RANDOM 70 mg/dL (74-106); MAGNESIUM 1.7 mg/dL (1.8-2.4)
--- NOTE | 2017-08-17 07:39 | PN ---
Progress Note, Physician Chief Complaint: OOB to chair her mother visited her yesterday and I d/w pt and her mom about SNF; pt is thinking about it; I dw pt's sister [place] about pt's condition, treatment and plan - Current Medication List Current Medications: Active Medications Acetaminophen (Tylenol -) 650 mg PO Q6H PRN PRN Reason: FEVER OR PAIN Last Admin: 08/17/17 04:22 Dose: 650 mg Albuterol Sulfate (Ventolin 0.083% Nebulizer Soln -) 1 amp NEB Q4H PRN PRN Reason: SHORT OF BREATH/WHEEZING Budesonide/Formoterol Fumarate (Symbicort 80/4.5mcg -) 2 puff IH BID [facility] Last Admin: 08/16/17 22:02 Dose: 2 puff Calcium Carbonate (Calcium Carbonate -) 650 mg PO BID [facility] Last Admin: 08/16/17 22:00 Dose: 650 mg Gabapentin (Neurontin -) 300 mg PO TID [facility] Last Admin: 08/17/17 06:33 Dose: 300 mg IV Flush (Picc Line Flush) 8 ml IVPUSH PRN PRN PRN Reason: Protocol Levetiracetam (Keppra -) 500 mg PO BID [facility] Last Admin: 08/16/17 22:00 Dose: 500 mg Lidocaine (Lidoderm Patch -) 2 patch TP DAILY [facility] Last Admin: 08/16/17 10:52 Dose: 2 patch Metoclopramide HCl (Reglan -) 10 mg PO TID [facility] Last Admin: 08/17/17 06:33 Dose: 10 mg Multivitamins/Minerals/Vitamin C (Tab-A-Vit -) 1 tab PO DAILY [facility] Last Admin: 08/16/17 10:49 Dose: 1 tab Oxycodone HCl (Oxycontin -) 20 mg PO BID [facility] Last Admin: 08/16/17 21:59 Dose: 20 mg Pantoprazole Sodium (Protonix -) 40 mg PO BID [facility] Last Admin: 08/16/17 22:01 Dose: 40 mg Tiotropium [place] (Spiriva -) 1 puff IH DAILY [facility] Last Admin: 08/16/17 19:38 Dose: Not Given - Objective Vital Signs: Vital Signs Temperature 97.8 F 08/17/17 06:00 Pulse Rate 93 H 08/17/17 06:00 Respiratory Rate 20 08/17/17 06:00 Blood Pressure 99/70 08/17/17 06:00 O2 Sat by Pulse Oximetry (%) 96 08/16/17 21:00 Constitutional: Yes: No Distress, Calm Eyes: Yes: Conjunctiva Clear HENT: Yes: Atraumatic Neck: Yes: Supple Cardiovascular: Yes: Regular Rate and Rhythm Respiratory: Yes: CTA Bilaterally Gastrointestinal: Yes: Soft. No: Distention Genitourinary: No: CVA Tenderness - Left, CVA Tenderness - Right Musculoskeletal: No: Joint Stiffness, Joint Swelling Extremities: No: Cold, Cool Edema: No Integumentary: No: Rash, Venous Stasis Changes Neurological: Yes: Alert ...Motor Strength: WNL Psychiatric: Yes: Alert. No: Agitated Labs: INR, PTT INR 1.35 (0.82-1.09) H 08/16/17 06:30 - ....Imaging Other: Report Reviewed Assessment/Plan 52yo woman with PMH of Scleroderma, CREST syndrome, COPD, CHF, narcotic dependence, hypothyroidism admitted with hypotension (70's/30's) and 1 episode of coffee ground emesis; s/p fall and mild impact fracture of R humeral neck few days ago, placed in a sling. found to be anemic, severely hypoNatremic and in ARF (sec to dehydration and possible nsaids use) d/w pt again she should not take more oxycontin than ordered 20 mg po bid and this to be taken only for RUE fracture for few days - weeks then taper it to off completely advance diet GI and renal f/u; cardiology eval for hypotension and preop for possible jejunostomy; GI is not able to insert jejunostomy and suregry also declined the procedure, advised GI placement of the tube; d/w pt and her family, since she is not vomiting (she ate all food tolerated well) I advised her to see GI dr Allred at [facility] and I d/w dr Allred also to see pt in office for further tx and management; per dr Allred GI can do jejunostomies at [facility] if indicated; pt to see dr Allred in office within 1-2 weeks for further plan of treatment f/u labs falls PFX prognosis guarded dw pt and staff
[2017-08-17 07:42] LABS: ALK PHOS 55 U/L (45-117); BILIRUBIN,TOTAL 0.3 mg/dL (0.2-1.0); CREATININE 0.4 mg/dL (0.55-1.02); PHOSPHOROUS 1.6 mg/dL (2.5-4.9); SGOT/AST 11 U/L (15-37); SGPT/ALT 20 U/L (12-78); TOT PROT 5.6 g/dl (6.4-8.2)
[2017-08-17] MEDS ORDERED: POTASSIUM PHOSPHATE 15 MM in DEXTROSE 5%-WATER - 250 ML IVPB ONE (08:38)
[2017-08-17] MEDS: LIDOCAINE 5% TOPICAL PATCH TP SCH (09:15)
[2017-08-17] MEDS: CALCIUM CARBONATE 650 MG TABLET PO SCH ×2 (09:16→21:49)
[2017-08-17] MEDS: oxyCODONE HCL 10 MG SUSTAINED ACTING TABLET PO SCH ×2 (09:19→21:48)
[2017-08-17] MEDS: NAPH,MB-DB/K PH,MBDB POWDER PACKET PO SCH ×4 (09:19→21:49)
[2017-08-17] MEDS: PANTOPRAZOLE 40 MG TABLET (FP) PO SCH ×2 (09:20→21:48)
[2017-08-17] MEDS: MULTIVITAMINS (DAILY MVI) TABLET (FP) PO SCH (09:20)
[2017-08-17] MEDS: levETIRAcetam 500 MG TABLET (FP) PO SCH ×2 (09:20→21:49)
[2017-08-17] MEDS: BUDESONIDE/FORMETEROL FUMARATE 80/4.5 mcg INHALER IH SCH ×2 (09:21→21:49)
[2017-08-17] MEDS ORDERED: MAGNESIUM SULF 50% (8.12 MEQ/2 ML-1 GM VIAL) ONE (09:27)
[2017-08-17] MEDS: MAGNESIUM SULF 50% (8.12 MEQ/2 ML-1 GM VIAL) IVPB SCH ×2 (09:29→20:38)
[2017-08-17] MEDS: TIOTROPIUM BROMIDE 18 MCG/INH (DEVICE W/ 5 CAPSULES) IH SCH (09:30)
--- NOTE | 2017-08-17 09:49 | PN ---
Progress Note, Physician History of Present Illness: 52yo white woman with PMH of Scleroderma/CREST syndrome, COPD, diastolic CHF, narcotic dependence, hypothyroidism who presents with hypotension (70's/30's) and 1 episode of coffee ground emesis on day of admission. She presented to the ED two days prior to this admission s/p fall and found to have mild impact fracture of R humeral neck,and placed in a sling. Denies any bloody or black stools. - Current Medication List Current Medications: Active Medications Acetaminophen (Tylenol -) 650 mg PO Q6H PRN PRN Reason: FEVER OR PAIN Last Admin: 08/17/17 04:22 Dose: 650 mg Albuterol Sulfate (Ventolin 0.083% Nebulizer Soln -) 1 amp NEB Q4H PRN PRN Reason: SHORT OF BREATH/WHEEZING Budesonide/Formoterol Fumarate (Symbicort 80/4.5mcg -) 2 puff IH BID [facility] Last Admin: 08/16/17 22:02 Dose: 2 puff Calcium Carbonate (Calcium Carbonate -) 650 mg PO BID [facility] Last Admin: 08/16/17 22:00 Dose: 650 mg Gabapentin (Neurontin -) 300 mg PO TID [facility] Last Admin: 08/17/17 06:33 Dose: 300 mg IV Flush (Picc Line Flush) 8 ml IVPUSH PRN PRN PRN Reason: Protocol Potassium Phosphate 15 mm/ (Dextrose) 255 mls @ 42.5 mls/hr IVPB ONCE ONE Stop: 08/17/17 14:37 Levetiracetam (Keppra -) 500 mg PO BID [facility] Last Admin: 08/16/17 22:00 Dose: 500 mg Lidocaine (Lidoderm Patch -) 2 patch TP DAILY [facility] Last Admin: 08/16/17 10:52 Dose: 2 patch Metoclopramide HCl (Reglan -) 10 mg PO TID [facility] Last Admin: 08/17/17 06:33 Dose: 10 mg Multivitamins/Minerals/Vitamin C (Tab-A-Vit -) 1 tab PO DAILY [facility] Last Admin: 08/16/17 10:49 Dose: 1 tab Oxycodone HCl (Oxycontin -) 20 mg PO BID [facility] Last Admin: 08/16/17 21:59 Dose: 20 mg Pantoprazole Sodium (Protonix -) 40 mg PO BID [facility] Last Admin: 08/16/17 22:01 Dose: 40 mg Potassium Phos/Sodium Phos (Phos-Nak Packet -) 1 packet PO TID [facility] Stop: 08/18/17 22:01 Tiotropium [place] (Spiriva -) 1 puff IH DAILY [facility] Last Admin: 08/16/17 19:38 Dose: Not Given - Objective Vital Signs: Vital Signs Temperature 97.8 F 08/17/17 06:00 Pulse Rate 93 H 08/17/17 06:00 Respiratory Rate 20 08/17/17 06:00 Blood Pressure 99/70 08/17/17 06:00 O2 Sat by Pulse Oximetry (%) 96 08/16/17 21:00 Eyes: Yes: WNL, Conjunctiva Clear, EOM Intact HENT: Yes: WNL, Atraumatic, Normocephalic Neck: Yes: WNL, Supple, Trachea Midline Cardiovascular: Yes: WNL, Regular Rate and Rhythm Respiratory: Yes: WNL, Regular, CTA Bilaterally Gastrointestinal: Yes: WNL, Normal Bowel Sounds Genitourinary: Yes: WNL Musculoskeletal: Yes: WNL Extremities: Yes: WNL Edema: No Integumentary: Yes: WNL Neurological: Yes: WNL, Alert, Oriented ...Motor Strength: WNL Psychiatric: Yes: WNL Labs: CBC, BMP 08/17/17 06:00 08/17/17 06:00 INR, PTT INR 1.35 (0.82-1.09) H 08/16/17 06:30 Assessment/Plan - Problems (1) Acute renal failure Assessment/Plan: Initial BUN/Cr of 106/3.3-->14/0.4 since admission four days ago with fluid Rx Code(s): N17.9 - ACUTE KIDNEY FAILURE, UNSPECIFIED Qualifiers: Acute renal failure type: unspecified Qualified Code(s): N17.9 - Acute kidney failure, unspecified (2) Altered awareness, transient Code(s): R40.4 - TRANSIENT ALTERATION OF AWARENESS (3) COPD (chronic obstructive pulmonary disease) Assessment/Plan: CT chest: COPD, nodules. F/u with computational biologist. The imperative need to stop tobacco smoking (and, ideally, to eventually stop e- cigarette) was again discussed. Code(s): J44.9 - CHRONIC OBSTRUCTIVE PULMONARY DISEASE, UNSPECIFIED (4) CREST (calcinosis, Raynaud's phenomenon, esophageal dysfunction, sclerodactyly, telangiectasia) Assessment/Plan: F/u with lactation consultant. Code(s): M34.1 - CR(E)ST SYNDROME (5) [place] cardiac risk >20% in next 10 years Assessment/Plan: 2016 stress MIBI at [facility] was + for anterior ischemia; f/u results of coronary angiogram. Microvascular ischemia is a manifestation of PSS. Consider ACEI and/or Ca2 blockers if and when BP allows; presently remains borderline hypotensive. Code(s): Z91.89 - [facility] PERSONAL RISK FACTORS, NOT ELSEWHERE CLASSIFIED (6) GERD (gastroesophageal reflux disease) Code(s): K21.9 - GASTRO-ESOPHAGEAL REFLUX DISEASE WITHOUT ESOPHAGITIS (7) Has smoked cigarettes within prior year Code(s): Z87.891 - PERSONAL HISTORY OF NICOTINE DEPENDENCE (8) Hypokalemia Assessment/Plan: replete all electrolytes, and f/u levels. Will give additional Mg. Keep Mg 2-2.3, K 4-4.5, PO4>2.5, Na 135-140. Code(s): E87.6 - HYPOKALEMIA (9) Hypomagnesemia Code(s): E83.42 - HYPOMAGNESEMIA (10) Hyponatremia Code(s): E87.1 - HYPO-OSMOLALITY AND HYPONATREMIA (11) Hypophosphatemia Code(s): E83.39 - OTHER DISORDERS OF PHOSPHORUS METABOLISM (12) Hypotension Assessment/Plan: Hydration. Improve nutrition. Avoid medications that lower BP. Orthostatic vital signs serially. Code(s): I95.9 - HYPOTENSION, UNSPECIFIED (13) Injury of head Code(s): S09.90XA - UNSPECIFIED INJURY OF HEAD, INITIAL ENCOUNTER (14) Interstitial lung disease Code(s): J84.9 - INTERSTITIAL PULMONARY DISEASE, UNSPECIFIED (15) Malnutrition Code(s): E46 - UNSPECIFIED PROTEIN-CALORIE MALNUTRITION Qualifiers: Malnutrition type: protein-calorie malnutrition (16) Opiate dependence Assessment/Plan: Drug and psychological counseling would be of benefit, though this is has been a very long-standing problem for Ms. Rider. Code(s): F11.20 - OPIOID DEPENDENCE, UNCOMPLICATED (17) Renal insufficiency Code(s): N28.9 - DISORDER OF KIDNEY AND URETER, UNSPECIFIED
--- NOTE | 2017-08-17 09:58 | PN ---
Progress Note (short form) - Note Progress Note: Renal follow up for PRASHANT Pt seen and examined at the bedside no acute complaints Vital Signs Temperature 97.8 F 08/17/17 06:00 Pulse Rate 93 H 08/17/17 06:00 Respiratory Rate 20 08/17/17 06:00 Blood Pressure 99/70 08/17/17 06:00 O2 Sat by Pulse Oximetry (%) 96 08/16/17 21:00 Intake & Output 08/14/17 08/15/17 08/16/17 08/17/17 23:59 23:59 23:59 23:59 Intake Total 1725 1050 500 550 Balance 1725 1050 500 550 NAD awake and alert RRR CTA soft NT No LE edema CBC, BMP 08/17/17 06:00 08/17/17 06:00 Current Medications Acetaminophen (Tylenol -) 650 mg PO Q6H PRN PRN Reason: FEVER OR PAIN Last Admin: 08/17/17 04:22 Dose: 650 mg Albuterol Sulfate (Ventolin 0.083% Nebulizer Soln -) 1 amp NEB Q4H PRN PRN Reason: SHORT OF BREATH/WHEEZING Budesonide/Formoterol Fumarate (Symbicort 80/4.5mcg -) 2 puff IH BID [facility] Last Admin: 08/17/17 09:21 Dose: 2 puff Calcium Carbonate (Calcium Carbonate -) 650 mg PO BID [facility] Last Admin: 08/17/17 09:16 Dose: 650 mg Gabapentin (Neurontin -) 300 mg PO TID [facility] Last Admin: 08/17/17 06:33 Dose: 300 mg IV Flush (Picc Line Flush) 8 ml IVPUSH PRN PRN PRN Reason: Protocol Potassium Phosphate 15 mm/ (Dextrose) 255 mls @ 42.5 mls/hr IVPB ONCE ONE Stop: 08/17/17 14:37 Levetiracetam (Keppra -) 500 mg PO BID [facility] Last Admin: 08/17/17 09:20 Dose: 500 mg Lidocaine (Lidoderm Patch -) 2 patch TP DAILY [facility] Last Admin: 08/17/17 09:15 Dose: 2 patch Metoclopramide HCl (Reglan -) 10 mg PO TID [facility] Last Admin: 08/17/17 06:33 Dose: 10 mg Multivitamins/Minerals/Vitamin C (Tab-A-Vit -) 1 tab PO DAILY [facility] Last Admin: 08/17/17 09:20 Dose: 1 tab Oxycodone HCl (Oxycontin -) 20 mg PO BID [facility] Last Admin: 08/17/17 09:19 Dose: 20 mg Pantoprazole Sodium (Protonix -) 40 mg PO BID [facility] Last Admin: 08/17/17 09:20 Dose: 40 mg Potassium Phos/Sodium Phos (Phos-Nak Packet -) 1 packet PO TID [facility] Stop: 08/18/17 22:01 Last Admin: 08/17/17 09:19 Dose: Not Given Tiotropium [place] (Spiriva -) 1 puff IH DAILY [facility] Last Admin: 08/17/17 09:30 Dose: 1 puff 52 year old woman with PMhx of Scleroderma, CREST Syndrome, COPD, CHF, Narcotic dependence, Hypothyrodism who presented with Coffee Ground Emesis and BUN/Cr of 106/3.3. #Acute Renal Failure secondary to renal hypoprofusion in setting of hypovolemia + NSAID use Renal function improved and stable off IVF #Coffee Ground Emesis/Anemia on IV PPI GI following #Hypovolemic hyponatremia improved with isotonic saline #Hypocalcemia Ca is WNL today #Hypophosphatemia give Neutraphos and IV k-Phos oral intake as tolerated #Hypomagnesemia likely due to PPI to get Mg sulfate 4g IV today again Srinivasan Tijerina DO Problem List - Problems (1) GIB (gastrointestinal bleeding) Code(s): K92.2 - GASTROINTESTINAL HEMORRHAGE, UNSPECIFIED (2) Acute renal failure Code(s): N17.9 - ACUTE KIDNEY FAILURE, UNSPECIFIED Qualifiers: Acute renal failure type: unspecified Qualified Code(s): N17.9 - Acute kidney failure, unspecified (3) CREST (calcinosis, Raynaud's phenomenon, esophageal dysfunction, sclerodactyly, telangiectasia) Code(s): M34.1 - CR(E)ST SYNDROME (4) Dehydration Code(s): E86.0 - DEHYDRATION
[2017-08-17] MEDS ORDERED: MAGNESIUM OXIDE 400 MG TABLET (FP) PO SCH (22:00)
[2017-08-18 05:45] VITALS: PULSE 90; TEMP 97.8
[2017-08-18] MEDS: GABAPENTIN 300 MG CAPSULE (FP) PO SCH (06:23)
[2017-08-18] MEDS: METOCLOPRAMIDE HCL 10 MG TABLET (FP) PO SCH (06:23)
[2017-08-18] MEDS: NAPH,MB-DB/K PH,MBDB POWDER PACKET PO SCH (06:23)
[2017-08-18 07:15] LABS: BASOPHIL 0.9 % (0-2.0); EOSINOPHIL 1.4 % (0-4.5); MCH 26.2 pg (25.7-33.7); MCHC 32.3 g/dl (32.0-36.0); MEAN CELL VOLUME 81.1 fl (80-96); MEAN PLT VOLUME 7.6 fl (7.5-11.1); NEUTROPHILS 63.4 % (42.8-82.8); PLATELET COUNT 426 K/MM3 (134-434); RDW 17.7 % (11.6-15.6); WHITE BLOOD COUNT 5.7 K/mm3 (4.0-10.0)
[2017-08-18 07:31] LABS: ALBUMIN 1.9 g/dl (3.4-5.0); ANION GAP 9 (8-16); CALCIUM 7.8 mg/dL (8.5-10.1); CO2 26 mmol/L (21-32); CREATININE 0.4 mg/dL (0.55-1.02); GLUCOSE,RANDOM 82 mg/dL (74-106); MAGNESIUM 1.5 mg/dL (1.8-2.4); PHOSPHOROUS 1.6 mg/dL (2.5-4.9); SGOT/AST 13 U/L (15-37); SGPT/ALT 21 U/L (12-78)
[2017-08-18 07:35] LABS: ALK PHOS 56 U/L (45-117); BILIRUBIN,TOTAL 0.3 mg/dL (0.2-1.0); TOT PROT 5.5 g/dl (6.4-8.2)
--- NOTE | 2017-08-18 08:15 | PN ---
Progress Note, Physician Chief Complaint: pt in bed NAD AxOx3 wants to leave the hospital AMA (knows her name place year date president) etc does not want to go to SNF/rehab but is very weak and at high risk of falls; pt fully aware of her condition, plan of treatement; risks and consequences of her noncompliance with plan nor with meds ate OK no vomiting I d/w pt and her sister Park on the phone, she is aware pt is leaving AMA pt's girlfriend Maki will pick her up from and take her to her mom's house - Current Medication List Current Medications: Active Medications Acetaminophen (Tylenol -) 650 mg PO Q6H PRN PRN Reason: FEVER OR PAIN Last Admin: 08/17/17 04:22 Dose: 650 mg Albuterol Sulfate (Ventolin 0.083% Nebulizer Soln -) 1 amp NEB Q4H PRN PRN Reason: SHORT OF BREATH/WHEEZING Budesonide/Formoterol Fumarate (Symbicort 80/4.5mcg -) 2 puff IH BID [facility] Last Admin: 08/17/17 21:49 Dose: 2 puff Calcium Carbonate (Calcium Carbonate -) 650 mg PO BID [facility] Last Admin: 08/17/17 21:49 Dose: 650 mg Gabapentin (Neurontin -) 300 mg PO TID [facility] Last Admin: 08/18/17 06:23 Dose: 300 mg IV Flush (Picc Line Flush) 8 ml IVPUSH PRN PRN PRN Reason: Protocol Levetiracetam (Keppra -) 500 mg PO BID [facility] Last Admin: 08/17/17 21:49 Dose: 500 mg Lidocaine (Lidoderm Patch -) 2 patch TP DAILY [facility] Last Admin: 08/17/17 09:15 Dose: 2 patch Magnesium Oxide (Mag-Ox -) 400 mg PO BID [facility] Last Admin: 08/17/17 21:48 Dose: 400 mg Metoclopramide HCl (Reglan -) 10 mg PO TID [facility] Last Admin: 08/18/17 06:23 Dose: 10 mg Multivitamins/Minerals/Vitamin C (Tab-A-Vit -) 1 tab PO DAILY [facility] Last Admin: 08/17/17 09:20 Dose: 1 tab Oxycodone HCl (Oxycontin -) 20 mg PO BID [facility] Last Admin: 08/17/17 21:48 Dose: 20 mg Pantoprazole Sodium (Protonix -) 40 mg PO BID [facility] Last Admin: 08/17/17 21:48 Dose: 40 mg Potassium Phos/Sodium Phos (Phos-Nak Packet -) 1 packet PO TID [facility] Stop: 08/18/17 22:01 Last Admin: 08/18/17 06:23 Dose: 1 packet Tiotropium [place] (Spiriva -) 1 puff IH DAILY [facility] Last Admin: 08/17/17 09:30 Dose: 1 puff - Objective Vital Signs: Vital Signs Temperature 97.8 F 08/18/17 05:42 Pulse Rate 90 08/18/17 05:42 Respiratory Rate 20 08/18/17 05:42 Blood Pressure 114/73 08/18/17 05:42 O2 Sat by Pulse Oximetry (%) 96 08/17/17 21:00 Constitutional: Yes: No Distress, Calm Eyes: Yes: Conjunctiva Clear HENT: Yes: Atraumatic Neck: Yes: Supple Cardiovascular: Yes: Regular Rate and Rhythm Respiratory: Yes: CTA Bilaterally Gastrointestinal: Yes: Soft. No: Distention Genitourinary: No: CVA Tenderness - Left, CVA Tenderness - Right Musculoskeletal: No: Joint Stiffness, Joint Swelling Extremities: No: Cold, Cool Edema: No Integumentary: No: Rash, Venous Stasis Changes Neurological: Yes: Alert, Oriented ...Motor Strength: WNL Psychiatric: Yes: Alert, Oriented. No: Agitated, Suicidal Ideation Labs: CBC, BMP 08/18/17 06:00 INR, PTT INR 1.35 (0.82-1.09) H 08/16/17 06:30 - ....Imaging Other: Report Reviewed Assessment/Plan 52yo woman with PMH of Scleroderma, CREST syndrome, COPD, CHF, narcotic dependence, hypothyroidism admitted with hypotension (70's/30's) and 1 episode of coffee ground emesis; s/p fall and mild impact fracture of R humeral neck few days ago, placed in a sling. found to be anemic, severely hypoNatremic and in ARF (sec to dehydration and possible nsaids use) pt axox3 wants to leave H AMA d/w pt again she should not take more oxycontin than ordered 20 mg po bid and this to be taken only for RUE fracture for few days - weeks then taper it to off completely advance diet GI cardiology ortho and renal f/u outpt I advised her to see GI dr Allred at [facility] and I d/w dr Allred also to see pt in office for further tx and management; per dr Allred GI can do jejunostomies at [facility] if indicated; pt to see dr Allred in office within 1-2 weeks for further plan of treatment falls PFX prognosis guarded RTER if worse or recurrent c/o dw pt and staff d/w pt's sister Park Rodolfo time 45 min
[2017-08-18] MEDS ORDERED: MAGNESIUM SULF 50% (8.12 MEQ/2 ML-1 GM VIAL) IVPB ONE (09:00)
--- NOTE | 2017-08-18 09:09 | PN ---
Progress Note (short form) - Note Progress Note: Renal follow up for PRASHANT Pt seen and examined at the bedside nurse reports that pt had been refusing phos packets and lost her IV and refused insertion of another pt without acute complaints no sob, chest pain having frequent loose BM's no abd pain, cramping Vital Signs Temperature 97.8 F 08/18/17 05:42 Pulse Rate 90 08/18/17 05:42 Respiratory Rate 20 08/18/17 05:42 Blood Pressure 114/73 08/18/17 05:42 O2 Sat by Pulse Oximetry (%) 96 08/17/17 21:00 Intake & Output 08/15/17 08/16/17 08/17/17 08/18/17 23:59 23:59 23:59 23:59 Intake Total 0401 319 2712 Balance 7023 957 8227 NAD awake and alert RRR CTA soft NT No LE edema CBC, BMP 08/18/17 06:00 08/18/17 06:00 Current Medications Acetaminophen (Tylenol -) 650 mg PO Q6H PRN PRN Reason: FEVER OR PAIN Last Admin: 08/17/17 04:22 Dose: 650 mg Albuterol Sulfate (Ventolin 0.083% Nebulizer Soln -) 1 amp NEB Q4H PRN PRN Reason: SHORT OF BREATH/WHEEZING Budesonide/Formoterol Fumarate (Symbicort 80/4.5mcg -) 2 puff IH BID [facility] Last Admin: 08/17/17 21:49 Dose: 2 puff Calcium Carbonate (Calcium Carbonate -) 650 mg PO BID [facility] Last Admin: 08/17/17 21:49 Dose: 650 mg Ergocalciferol (Drisdol Oral Solution -) 8,000 units PO DAILY [facility] Gabapentin (Neurontin -) 300 mg PO TID [facility] Last Admin: 08/18/17 06:23 Dose: 300 mg IV Flush (Picc Line Flush) 8 ml IVPUSH PRN PRN PRN Reason: Protocol Levetiracetam (Keppra -) 500 mg PO BID [facility] Last Admin: 08/17/17 21:49 Dose: 500 mg Lidocaine (Lidoderm Patch -) 2 patch TP DAILY [facility] Last Admin: 08/17/17 09:15 Dose: 2 patch Magnesium Chloride (Slow-Mag -) 128 mg PO DAILY [facility] Metoclopramide HCl (Reglan -) 10 mg PO TID [facility] Last Admin: 08/18/17 06:23 Dose: 10 mg Multivitamins/Minerals/Vitamin C (Tab-A-Vit -) 1 tab PO DAILY [facility] Last Admin: 08/17/17 09:20 Dose: 1 tab Oxycodone HCl (Oxycontin -) 20 mg PO BID [facility] Last Admin: 08/17/17 21:48 Dose: 20 mg Pantoprazole Sodium (Protonix -) 40 mg PO BID [facility] Last Admin: 08/17/17 21:48 Dose: 40 mg Potassium Phos/Sodium Phos (Phos-Nak Packet -) 1 packet PO TID [facility] Stop: 08/18/17 22:01 Last Admin: 08/18/17 06:23 Dose: 1 packet Tiotropium [place] (Spiriva -) 1 puff IH DAILY [facility] Last Admin: 08/17/17 09:30 Dose: 1 puff 52 year old woman with PMhx of Scleroderma, CREST Syndrome, COPD, CHF, Narcotic dependence, Hypothyrodism who presented with Coffee Ground Emesis and BUN/Cr of 106/3.3. #Acute Renal Failure secondary to renal hypoprofusion in setting of hypovolemia + NSAID use Renal function improved and stable off IVF #Coffee Ground Emesis/Anemia on PO PPI BID GI following #Hypophosphatemia secondary to vit d decency vs. GI losses from diarrhea? start vit D Daily continue Neutraphos packets trend PHos daily #Hypomagnesemia likely due to PPI pt does not have IV will start Mag Chloride Daily (mg Oxide can contribute to diarrhea) if remains low can consider change in PPI to H2 anette Srinivasan Tijerina DO Problem List - Problems (1) GIB (gastrointestinal bleeding) Code(s): K92.2 - GASTROINTESTINAL HEMORRHAGE, UNSPECIFIED (2) Acute renal failure Code(s): N17.9 - ACUTE KIDNEY FAILURE, UNSPECIFIED Qualifiers: Acute renal failure type: unspecified Qualified Code(s): N17.9 - Acute kidney failure, unspecified (3) CREST (calcinosis, Raynaud's phenomenon, esophageal dysfunction, sclerodactyly, telangiectasia) Code(s): M34.1 - CR(E)ST SYNDROME (4) Dehydration Code(s): E86.0 - DEHYDRATION
--- NOTE | 2017-08-18 09:21 | PN ---
Progress Note, Physician History of Present Illness: 52yo white woman with PMH of Scleroderma/CREST syndrome, COPD, diastolic CHF, narcotic dependence, hypothyroidism who presents with hypotension (70's/30's) and 1 episode of coffee ground emesis on day of admission. She presented to the ED two days prior to this admission s/p fall and found to have mild impact fracture of R humeral neck,and placed in a sling. Denies any bloody or black stools. - Current Medication List Current Medications: Active Medications Acetaminophen (Tylenol -) 650 mg PO Q6H PRN PRN Reason: FEVER OR PAIN Last Admin: 08/17/17 04:22 Dose: 650 mg Albuterol Sulfate (Ventolin 0.083% Nebulizer Soln -) 1 amp NEB Q4H PRN PRN Reason: SHORT OF BREATH/WHEEZING Budesonide/Formoterol Fumarate (Symbicort 80/4.5mcg -) 2 puff IH BID [facility] Last Admin: 08/17/17 21:49 Dose: 2 puff Calcium Carbonate (Calcium Carbonate -) 650 mg PO BID [facility] Last Admin: 08/17/17 21:49 Dose: 650 mg Ergocalciferol (Drisdol Oral Solution -) 8,000 units PO DAILY [facility] Gabapentin (Neurontin -) 300 mg PO TID [facility] Last Admin: 08/18/17 06:23 Dose: 300 mg IV Flush (Picc Line Flush) 8 ml IVPUSH PRN PRN PRN Reason: Protocol Levetiracetam (Keppra -) 500 mg PO BID [facility] Last Admin: 08/17/17 21:49 Dose: 500 mg Lidocaine (Lidoderm Patch -) 2 patch TP DAILY [facility] Last Admin: 08/17/17 09:15 Dose: 2 patch Magnesium Chloride (Slow-Mag -) 128 mg PO DAILY [facility] Metoclopramide HCl (Reglan -) 10 mg PO TID [facility] Last Admin: 08/18/17 06:23 Dose: 10 mg Multivitamins/Minerals/Vitamin C (Tab-A-Vit -) 1 tab PO DAILY [facility] Last Admin: 08/17/17 09:20 Dose: 1 tab Oxycodone HCl (Oxycontin -) 20 mg PO BID [facility] Last Admin: 08/17/17 21:48 Dose: 20 mg Pantoprazole Sodium (Protonix -) 40 mg PO BID [facility] Last Admin: 08/17/17 21:48 Dose: 40 mg Potassium Phos/Sodium Phos (Phos-Nak Packet -) 1 packet PO TID [facility] Stop: 08/18/17 22:01 Last Admin: 08/18/17 06:23 Dose: 1 packet Tiotropium [place] (Spiriva -) 1 puff IH DAILY [facility] Last Admin: 08/17/17 09:30 Dose: 1 puff - Objective Vital Signs: Vital Signs Temperature 97.8 F 08/18/17 05:42 Pulse Rate 90 08/18/17 05:42 Respiratory Rate 20 08/18/17 05:42 Blood Pressure 114/73 08/18/17 05:42 O2 Sat by Pulse Oximetry (%) 96 08/17/17 21:00 Eyes: Yes: WNL, Conjunctiva Clear, EOM Intact HENT: Yes: WNL, Atraumatic, Normocephalic Neck: Yes: WNL, Supple, Trachea Midline Cardiovascular: Yes: WNL, Regular Rate and Rhythm Respiratory: Yes: WNL, Regular, CTA Bilaterally Gastrointestinal: Yes: WNL, Normal Bowel Sounds Genitourinary: Yes: WNL Musculoskeletal: Yes: WNL Extremities: Yes: WNL Edema: No Integumentary: Yes: WNL Neurological: Yes: WNL, Alert, Oriented ...Motor Strength: WNL Psychiatric: Yes: WNL Labs: CBC, BMP 08/18/17 06:00 08/18/17 06:00 INR, PTT INR 1.35 (0.82-1.09) H 08/16/17 06:30 Assessment/Plan - Problems (1) Acute renal failure Assessment/Plan: Initial BUN/Cr of 106/3.3-->14/0.4 since admission four days ago with fluid Rx Code(s): N17.9 - ACUTE KIDNEY FAILURE, UNSPECIFIED Qualifiers: Acute renal failure type: unspecified Qualified Code(s): N17.9 - Acute kidney failure, unspecified (2) Altered awareness, transient Code(s): R40.4 - TRANSIENT ALTERATION OF AWARENESS (3) COPD (chronic obstructive pulmonary disease) Assessment/Plan: CT chest: COPD, nodules. F/u with supervisor finishing room. The imperative need to stop tobacco smoking (and, ideally, to eventually stop e- cigarette) was again discussed. Code(s): J44.9 - CHRONIC OBSTRUCTIVE PULMONARY DISEASE, UNSPECIFIED (4) CREST (calcinosis, Raynaud's phenomenon, esophageal dysfunction, sclerodactyly, telangiectasia) Assessment/Plan: F/u with parliamentary counsel. Code(s): M34.1 - CR(E)ST SYNDROME (5) [place] cardiac risk >20% in next 10 years Assessment/Plan: 2016 stress MIBI at [facility] was + for anterior ischemia; f/u results of coronary angiogram. Microvascular ischemia is a manifestation of PSS. Consider ACEI and/or Ca2 blockers if and when BP allows; presently remains borderline hypotensive. Code(s): Z91.89 - [place] PERSONAL RISK FACTORS, NOT ELSEWHERE CLASSIFIED (6) GERD (gastroesophageal reflux disease) Code(s): K21.9 - GASTRO-ESOPHAGEAL REFLUX DISEASE WITHOUT ESOPHAGITIS (7) Has smoked cigarettes within prior year Code(s): Z87.891 - PERSONAL HISTORY OF NICOTINE DEPENDENCE (8) Hypokalemia Assessment/Plan: replete all electrolytes, and f/u levels. Will give additional Mg. Keep Mg 2-2.3, K 4-4.5, PO4>2.5, Na 135-140. Code(s): E87.6 - HYPOKALEMIA (9) Hypomagnesemia Code(s): E83.42 - HYPOMAGNESEMIA (10) Hyponatremia Code(s): E87.1 - HYPO-OSMOLALITY AND HYPONATREMIA (11) Hypophosphatemia Code(s): E83.39 - OTHER DISORDERS OF PHOSPHORUS METABOLISM (12) Hypotension Assessment/Plan: Hydration. Improve nutrition. Avoid medications that lower BP. Orthostatic vital signs serially. Code(s): I95.9 - HYPOTENSION, UNSPECIFIED (13) Injury of head Code(s): S09.90XA - UNSPECIFIED INJURY OF HEAD, INITIAL ENCOUNTER (14) Interstitial lung disease Code(s): J84.9 - INTERSTITIAL PULMONARY DISEASE, UNSPECIFIED (15) Malnutrition Code(s): E46 - UNSPECIFIED PROTEIN-CALORIE MALNUTRITION Qualifiers: Malnutrition type: protein-calorie malnutrition (16) Opiate dependence Assessment/Plan: Drug and psychological counseling would be of benefit, though this is has been a very long-standing problem for Ms. Rider. Code(s): F11.20 - OPIOID DEPENDENCE, UNCOMPLICATED (17) Renal insufficiency Code(s): N28.9 - DISORDER OF KIDNEY AND URETER, UNSPECIFIED
[2017-08-18] MEDS ORDERED: MAGNESIUM CL 64 MG TABLET.SA PO SCH (10:00)
[2017-08-18] MEDS ORDERED: PT OWN MED DRAWER 7, Y5N ONE (11:09)
[2017-08-18] MEDS: oxyCODONE HCL 10 MG SUSTAINED ACTING TABLET PO SCH (11:36)
[2017-08-18] MEDS: PANTOPRAZOLE 40 MG TABLET (FP) PO SCH (11:37)
[2017-08-18] MEDS: MULTIVITAMINS (DAILY MVI) TABLET (FP) PO SCH (11:37)
[2017-08-18] MEDS: CALCIUM CARBONATE 650 MG TABLET PO SCH (11:38)
[2017-08-18] MEDS: levETIRAcetam 500 MG TABLET (FP) PO SCH (11:38)
[2017-08-18] MEDS: ERGOCALCIFEROL 8,000 UNITS/ML DROPSBTL PO SCH ×2 (11:39→11:43)
[2017-08-18] MEDS: LIDOCAINE 5% TOPICAL PATCH TP SCH (11:39)
[2017-08-18 11:49] VITALS: BP 91/68
[2017-08-18] MEDS: TIOTROPIUM BROMIDE 18 MCG/INH (DEVICE W/ 5 CAPSULES) IH SCH (11:55)
--- NOTE | 2017-08-18 11:59 | PN ---
Progress Note (short form) - Note Progress Note: Pt seen and examined, she has a right proximal humerus fracture, in a sling, comfortable, orthopedically doing well. RUE is grossly NVI, good ROM at the right wrist, fingers, the right elbow is stiff No sig swelling or deformity right proximal humerus Rec She needs to move the right elbow and forearm more or it will remain very stiff Still NWB RUE Can DC from an ortho pov Con't to use sling P.T. right elbow, wrist, fingers for ROM exercises Will follow
--- NOTE | 2017-08-20 21:35 | DS ---
Physical Examination Vital Signs: Vital Signs Temperature 97.8 F 08/18/17 05:42 Pulse Rate 90 08/18/17 05:42 Respiratory Rate 18 08/18/17 11:48 Blood Pressure 91/68 08/18/17 11:48 O2 Sat by Pulse Oximetry (%) 96 08/17/17 21:00 Findings/Remarks: pt left AMA on 08/18/17 see progress note 08/18 t time 45 min on 08/18 Labs: CBC, BMP 08/18/17 06:00 08/18/17 06:00 Discharge Summary Reason For Visit: GASTROINTESTINAL HEMORRHAGE GI bleed vomiting; anemia, ARF dehydration, severe hypoNA RUE fracture after fall; opiates abuse scleroderma, gastroparesis Procedures: Principal: IVF, blood transfusions Other Procedures: GI, cardiology, renal and ortho eval Hospital Course: improved with above; left AMA; f/u outpt as advised Condition: Guarded - Instructions Referrals: Eva Gonzalez [Primary Care Provider] - Disposition: AGAINST MEDICAL ADVICE - Home Medications Comprehensive Discharge Medication List: Ambulatory Orders Albuterol 0.083% Nebulizer Cinthya [Ventolin 0.083% Nebulizer Soln -] 1 amp NEB Q4H PRN #1 amp 04/11/16 Aspirin [ASA -] 81 mg PO DAILY tab.chew 04/11/16 Budesonide/Formeterol Fumarate [SYMBICORT 80/4.5mcg -] 2 puff IH BID #1 inhaler 04/11/16 Ranitidine [Zantac -] 150 mg PO DAILY 05/27/16 Aclidinium Tad [Tudorza -] 1 puff IH DAILY inhaler 07/20/16 Lactobacillus Acidophilus [Bacid -] 1 each PO DAILY #30 capsule 07/20/16 Metoclopramide HCl [Reglan -] 10 mg PO ACHS tablet 07/20/16 Acetaminophen [Tylenol .Regular Strength -] 650 mg PO Q6H PRN #0 tablet Hydroxychloroquine So4 [Plaquenil -] 200 mg PO BID tablet 07/31/16 Multivitamins [Multivit ([facility])] 1 tab PO DAILY tab 12/17/16 Acetaminophen [Tylenol .Regular Strength -] 650 mg PO Q6H PRN #0 tablet Albuterol 0.083% Nebulizer Cinthya [Ventolin 0.083% Nebulizer Soln -] 1 amp NEB Q4H PRN #30 amp 05/06/17 Gabapentin [Neurontin -] 300 mg PO TID #90 cap 05/06/17 Levetiracetam [Keppra -] 1,000 mg PO BID #60 tablet 05/06/17 Lidocaine 5% Patch [Lidoderm -] 2 patch TP DAILY #60 patch 05/06/17 Mag Hydrox/Al Hydrox/Simeth [Mylanta Oral Suspension -] 30 ml PO Q6HPO PRN #0 vial 05/06/17 Magnesium Chloride [Slow-Mag -] 128 mg PO DAILY #30 tab MDD 1 05/06/17 Oxycodone Sr [Oxycontin] 20 mg PO BID PRN #30 tab MDD 2 05/06/17 Pantoprazole Sodium [Protonix -] 40 mg PO BID #60 tab 05/06/17 Potassium Chloride [K-Dur -] 20 meq PO DAILY #30 tab 05/06/17
== END 2017-08-18 13:38 | disposition left against medical advice (07) | DRG 377 ==
LOC: JER 17:12 → JERBED 20:42 → J7W 23:55
PROVIDERS: ADMIT Internal Medicine; ATTEND Internal Medicine
PROC: 30233N1 Transfusion of Nonautologous Red Blood Cells into Peripheral Vein, Percutaneous Approach (ICD-10-PCS; principal; 2017-08-13)
DX: K92.2 Gastrointestinal hemorrhage, unspecified (principal); E43 Unspecified severe protein-calorie malnutrition; R64 Cachexia; E87.1 Hypo-osmolality and hyponatremia; N17.9 Acute kidney failure, unspecified; Z68.1 Body mass index [BMI] 19.9 or less, adult; D62 Acute posthemorrhagic anemia; E46 Unspecified protein-calorie malnutrition; F11.20 Opioid dependence, uncomplicated; I50.32 Chronic diastolic (congestive) heart failure; J84.9 Interstitial pulmonary disease, unspecified; S42.201A Unspecified fracture of upper end of right humerus, initial encounter for closed fracture; M34.1 CR(E)ST syndrome; F17.200 Nicotine dependence, unspecified, uncomplicated; J44.9 Chronic obstructive pulmonary disease, unspecified; E03.9 Hypothyroidism, unspecified; Z88.0 Allergy status to penicillin; E86.0 Dehydration; E83.51 Hypocalcemia; K22.70 Barrett's esophagus without dysplasia; K31.84 Gastroparesis; I95.9 Hypotension, unspecified; E83.39 Other disorders of phosphorus metabolism; K21.9 Gastro-esophageal reflux disease without esophagitis; E86.1 Hypovolemia; E83.42 Hypomagnesemia; W01.0XXA Fall on same level from slipping, tripping and stumbling without subsequent striking against object, initial encounter; Y93.89 Activity, other specified; Y92.89 Other specified places as the place of occurrence of the external cause; Y99.8 Other external cause status
CPT/HCPCS: 36415; 36430; 36511; 71010-TC; 71250-TC; 73010-TC; 73030-TC-RT; 73060-TC-RT; 73200-TC-RT; 73560-TC-LT; 73560-TC-RT; 74176-TC; 80048; 80053; 82272; 82607; 82728; 82746; 83540; 83550; 83735; 83970; 84100; 85025; 85044; 85610; 85730; 86140; 86850; 86900; 86901; 86922; 87045; 87046; 87324; 87449; 93005; 93010; 97116-GP; 97161-GP; 99281-25; 99283-25; P9038; P9058; Q9967